=== PATIENT | female | born 1980 | race Caucasian/White ===

== ENCOUNTER → 2017-08-23 07:25 | Outpatient (CLI) | payer BC, SELFPAY ==
--- NOTE | 2017-08-23 16:15 | VAGW_PTH ---
PATIENT: DO SANDERS LOC: [facility]#:[id number] AGE/SX: 44/F ROOM: RE08/23/[address]: Dr. Easton Flores MD : 1980 BED: DIS: SPEC #: [id number] RECD: 08/24/17 08:57 STATUS: DAVID PATRICIA #: [id number] VASQUEZ: 08/23/17 16:[address]: Easton Flores DEPT: SURGICAL PATHOLOGY RECD BY: Chance Nobles ENTERED: 08/24/17 08:57 SP TYPE: VAG WALL OTHR DR: No Primary Care Phys Tissues: Vagina, NOS Procedures: Special Stain Group I Surgery Specimen Level IV AFB Stain (control) GMS Stain (control) HEADER OPERATION: Excise vaginal tissue PRE-OP DIAGNOSIS: N89.8 TISSUE SUBMITTED: Vaginal tissue MICROSCOPIC DIAGNOSIS Vaginal tissue, biopsy: Fragment of fibroconnective tissue with acute and chronic inflammation and granulation tissue reaction. Special stains for acid fast bacilli and fungi are negative for organisms; matched controls are appropriate. EVERETT:dayanara 08/27/17 MICROSCOPIC DESCRIPTION Slides are reviewed. GROSS DESCRIPTION Received is one container labeled with the patient's name and not further designated. The specimen consists of a piece of chairez soft tissue measuring 0.5 x 0.6 x 0.1 cm. The entire specimen is submitted in one cassette. / EVERETT:dayanara 08/24/17 TC:2 CPT: 27079, 53506 x2
== END ==
PROVIDERS: Visit Provider Obstetrics & Gynecology
DX: N89.8 Other specified noninflammatory disorders of vagina (principal)
CPT/HCPCS: 88305; 88312

== ENCOUNTER 2021-08-17 09:16 | Outpatient (CLI) | payer OTHER, SELFPAY ==
--- NOTE | 2021-08-17 09:21 | BI_ITS ---
MAMMOGRAPHY - BILATERAL DIAGNOSTIC REASON FOR EXAM: Female, 41 years old. Occasional breast pain at the intercondylar position of the right breast. 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 Breast implants. PERTINENT HISTORY: Non-contributory. TECHNIQUE: Digital bilateral breast kit (3D mammographic acquisition) in the CC and MLO projections. 2-D mediolateral oblique (MLO) and craniocaudad (CC) views of both breasts were obtained. CAD: Full Field Digital Mammography with Computer Added Detection was performed. COMPARISON: Comparison is made with prior outside examination dated 08/19/2020. FINDINGS: Breast Composition: The breasts are heterogeneously dense, which may obscure small masses. There are no dominant masses or suspicious calcifications. Bilateral breast implants are seen. No other significant abnormalities are identified. BI/DIAG MAMM W/CAD, BILAT IMPRESSION: Status post excisional biopsy of the previously seen nodule in the inferior medial aspect of the left breast. One year follow-up recommended. (A) ASSESSMENT CATEGORY: BIRADS Category 2: Benign. A letter regarding these results will be sent to the patient by the facility within 30 days. Approximately 10% of breast cancers are not detected by mammography. A normal mammogram should not delay biopsy of a clinically suspicious abnormality. Electronically Signed: Kingsley Russo MD at 11:06 EDT ,
--- NOTE | 2021-08-17 09:21 | US_ITS ---
STUDY: ULTRASOUND BREAST - RIGHT REASON FOR EXAM: Female, 41 years old. Pain in the right breast. TECHNIQUE: Axial and longitudinal images of the RIGHT breast were performed with a high resolution ultrasound transducer. # OF IMAGES: 29 COMPARISON: Comparison is made with prior mammogram done earlier today. FINDINGS: RIGHT Breast: The inferior outer quadrant of the right breast was examined by ultrasound. Fibroglandular tissue is present. No sonographic abnormality is seen. US/Breast Limited Unilateral IMPRESSION: No sonographic abnormality is seen. ASSESSMENT CATEGORY: BIRADS Category 2: Benign. A letter regarding these results will be sent to the patient by the facility within 30 days. Electronically Signed: Kingsley Russo MD at 12:30 EDT ,
== END 2021-08-17 23:59 | disposition home or self-care (01) ==
PROVIDERS: Visit Provider Obstetrics & Gynecology
DX: N64.4 Mastodynia (principal); Z98.82 Breast implant status
CPT/HCPCS: 76642; 77062; 77066; G0279

== ENCOUNTER → 2021-11-29 | Outpatient (CLI) | payer OTHER, SELFPAY ==
[2021-11-29 12:26] LABS: Absolute Lymphocyte Count 1.85 X10^3/uL (0.83-4.51); Absolute Neutrophil Count 3.2 X10^3/uL (2.0-7.7); Basophil# 0.06 X10^3/uL; Basophil% 1.1 % (0-1); Eosinophil# 0.14 X10^3/uL; Eosinophils% 2.5 % (0-5); Hematocrit 41.8 % (37-47); Hemoglobin 13.4 g/dL (12.0-15.0); Lymphocyte # 1.85 X10^3/ul (0.83-4.51); Lymphocyte % 32.6 % (19-41); Mean Corp Hgb Conc 32.1 g/dL (32-36); Mean Corpuscular Hgb 29.3 pg (27.0-32.0); Mean Corpuscular Volume 91.5 fL (81-99); Mean Platelet Vol. 10.3 fl (6.2-12.0); Monocyte# 0.42 X10^3/uL; Monocyte% 7.4 % (0-10); NRBC Flagged by Analyzer 0 % (0-5); Neutrophil # 3.19 X10^3/uL (2.7-7.7); Platelet Count 275 K/mm3 (150-450); RBC Distribution Width CV 12.8 % (11.6-14.6); RBC Distribution Width SD 42.3 fl (35.1-43.9); Red Blood Count 4.57 M/mm3 (4.2-5.4); White Blood Count 5.7 K/mm3 (4.4-11.0)
[2021-11-29 12:54] LABS: ALB/GLOB Ratio 1.2 RATIO (0.9-2.4); AST(SGOT) 16 U/L (15-37); Alanine Aminotransfer ALT/SGPT 26 U/L (13-56); Albumin, Serum 3.8 g/dL (3.2-5.0); Alkaline Phosphatase 66 U/L (45-117); Anion Gap 4 (5-15); BUN 12 mg/dL (7-18); BUN/Creat Ratio 14.8 RATIO (10-20); Calcium,Total 8.8 mg/dL (8.5-10.1); Chloride 107 mmol/L (98-107); Cholesterol 181 mg/dL (200); Creatinine, Serum 0.81 mg/dL (0.55-1.02); EST Glomerular Filtration Rate 83 mL/min (>60); Est Glom Filt Rate - Afr Amer 100 mL/min (>60); Globulin 3.2 g/dL (2.2-4.2); Glucose 97 mg/dL (74-106); High Density Lipoprotein 71 mg/dL; Potassium 4.2 mmol/L (3.5-5.1); Sodium Level 139 mmol/L (136-145); Triglycerides 79 mg/dL; Very Low Density Lipoprotein 16 mg/dL (5-40)
[2021-11-29 13:13] LABS: Hemoglobin A1c 5.4 % (3.8-5.6)
== END | disposition home or self-care (01) ==
LOC: BIMLAB 08:48
PROVIDERS: PCP Internal Medicine; Visit Provider Internal Medicine
DX: Z00.00 Encounter for general adult medical examination without abnormal findings (principal)
CPT/HCPCS: 36415; 80053; 80061; 83036; 85025

== ENCOUNTER → 2022-01-16 | Outpatient (CLI) | payer OTHER, SELFPAY ==
--- NOTE | 2022-01-16 08:50 | EKG12_ITS ---
Test Reason : PALPS Blood Pressure : / mmHG Vent. Rate : 091 BPM Atrial Rate : 091 BPM P-R Int : 122 ms QRS Dur : 080 ms QT Int : 346 ms P-R-T Axes : 074 072 047 degrees QTc Int : 425 ms Normal sinus rhythm Normal ECG Confirmed by PRASAD LAU, ARLENE ([id number]), sports editor GIO BEE ([id number]) on 01/17/2022 12:57:21 PM Referred By: PATI Confirmed By:ARLENE PARHAM MD
== END | disposition home or self-care (01) ==
LOC: PSN 08:47
PROVIDERS: PCP Internal Medicine; Visit Provider Physician Assistant
DX: R00.2 Palpitations (principal)
CPT/HCPCS: 93005; 93225; 93226

== ENCOUNTER 2022-02-11 15:11 | Emergency (ER) | payer OTHER, SELFPAY ==
[2022-02-11 15:12] VITALS: BP 143/82; PULSE 112; RESP 16; TEMP 36.3; O2SAT 99; BMI 29.7
[2022-02-11] MEDS: oxyCODONE 5 MG Tablet PO (15:29)
[2022-02-11] MEDS: Cephalexin 250 MG Capsule 500 MG PO (15:29)
--- NOTE | 2022-02-11 15:30 | RAD_ITS ---
EXAM: XR LEFT FOOT COMPLETE, 3 OR MORE VIEWS CLINICAL INDICATION: trauma TECHNIQUE: Frontal, lateral and oblique views of the left foot. This report was created using [employer] report generation technology. COMPARISON: None. FINDINGS: BONES/JOINTS: Acute fractures of the first proximal and distal phalanges noted. No subluxation deformity. SOFT TISSUES: Soft tissue swelling of the forefoot. No radiopaque foreign body. RAD/Foot min 3 Views IMPRESSION: Acute fractures of the first proximal and distal phalanges. Electronically Signed: Teddy Rivera MD at 16:02 EDT ,
--- NOTE | 2022-02-11 15:45 | ED.VIS.LOWEX ---
HPI History of Present Illness Chief Complaint: Lower Extremity Injury Informant: patient Narrative Narrative: Patient presents with left foot pain after a horse stepped on it. She was wearing flip-flops at the time. This happened about an hour ago. Weightbearing makes it worse Motrin made a little better. No other injury. [facility] Medical History Anxiety Gastroenteritis No pertinent past medical history Preventative health custodial Medications fexofenadine 180 mg tablet (Melinda Allergy) 180 mg PO DAILY 08/04/21 [History Last Taken Unknown] multivitamin with minerals (Hair,Skin and Nails tablet) 1 tab PO DAILY 08/04/21 [History Last Taken Unknown] meloxicam 15 mg tablet 15 mg PO DAILY Right knee pain #30 tabs 09/23/21 [Rx Last Taken Unknown] Lactobacillus 25 billion cell-Bifido 25 billion [id number] capsule (Women's Probiotic) cap PO 11/29/21 [History Last Taken Unknown] cephalexin 500 mg capsule 500 mg PO Q6 #40 caps 02/11/22 [Rx Last Taken Unknown] fluconazole 150 mg tablet (Diflucan) 150 mg PO Q3D 2 doses #2 tabs 02/11/22 [Rx Last Taken Unknown] oxycodone-acetaminophen 5 mg-325 mg tablet (Percocet) 1 tab PO Q6H PRN pain 3 days #10 tabs 02/11/22 [Rx Last Taken Unknown] Allergy/AdvReac Type Severity Reaction Status Date / Time No Known Allergies Allergy Verified 02/11/22 15:11 Family History Other Cervical cancer Heart disease Melanoma Mental disorder Myocardial infarction Ovarian cancer Surgical History H/O lumpectomy History of hysterectomy History of wisdom tooth extraction Social History Smoking Status: Former smoker alcohol intake: current alcohol intake frequency: holidays/special occasions only substance use type: does not use ROS ROS ED Constitutional Constitutional ED: Denies chills or fever(s) Gastrointestinal Gastrointestinal: Denies nausea or vomiting Musculoskeletal Musculoskeletal: Reports arthralgias Integumentary Reports other Details: There is a tear of the skin in the lateral aspect of the great toe. This will be cleaned for greater evaluation Neurologic Neurologic: Denies paresthesias or weakness Hematologic/Lymphatic Hematologic/Lymphatic: Denies easy bleeding or easy bruising EXAM Physical Exam Const Vital Signs: 02/11/22 15:12 Temperature 97.3 F L Temperature Source Temporal Pulse Rate 112 H Respiratory Rate 16 Blood Pressure 143/82 H Blood Pressure Mean 102 Pulse Ox 99 Oxygen Delivery Method Room Air Positive well nourished and well developed General Appearance ED: well developed and NAD HEENT atraumatic Resp normal respiratory effort Cardio regular rate and regular rhythm Extremity Extremity Narrative: Patient has notable swelling to the anterior half of the left foot dorsally. There appears to be a small break in the skin at the proximal lateral aspect of the great toe. No active bleeding. I do not see any notable deformity but there is moderate amount of swelling that could obscure this. Distal capillary refill of all toes is intact. Neuro no sensory deficits noted Psych mental status grossly normal Skin No no wounds Skin Narrative: See above MDM MDM MDM Narrative Medical decision making narrative: Three-view x-ray of the foot looked at by me and read by radiology shows fractures of the great toe proximal and distal phalanx. We cleaned the foot irrigated the area. There seems to be a little abrasion of the skin but no real laceration or opening that I can see. This really does not open up in any way. Its in the medial superior aspect of the great toe. I do not think this likely communicates directly with the fracture. We will treat her with antibiotics. But I do not think this needs surgical washout at this time. We did have a long conversation about things to watch for reasons to return and the higher risk of infection. She will follow-up with [place] whom she has seen before. Radiography Diagnostic Testing: Clinical Impression(s) from Imaging Studies Foot X-Ray 02/11/22 15:30 IMPRESSION: Acute fractures of the first proximal and distal phalanges. Electronically Signed: Teddy Rivera MD at 16:02 EDT , Discharge Plan Triage Chief Complaint: Lower Extremity Injury ED Provider: Joby Reed Dx/Rx/DC Orders Clinical Impression: Fracture of left great toe, Abrasion of great toe of left foot Instructions: ED Fracture, Foot Prescriptions: New oxycodone-acetaminophen [Percocet] 5-325 mg tablet 1 tab PO Q6H PRN (Reason: pain) 3 Days Qty: 10 0RF cephalexin [cephalexin] 500 mg capsule 500 mg PO Q6 Qty: 40 0RF fluconazole [Diflucan] 150 mg tablet 150 mg PO Q3D Qty: 2 0RF Rx Instructions: may repeat second dose 72 hrs after first dose if symptoms persist No Action Women's Probiotic 25B cell-25B cell-50 mg capsule PO fexofenadine [Melinda Allergy] 180 mg tablet 180 mg PO DAILY Hair,Skin and Nails Tablet 1 tab PO DAILY meloxicam 15 mg tablet 15 mg PO DAILY Qty: 30 3RF Rx Instructions: Do not take in conjunction with other NSAIDs. Primary Care Provider: Daria Martines Referrals: Eulogio Mello DO [Med Staff - Active Staff] - 2 Days for wound check Daria Martines MD [Primary Care Provider] - Disposition Disposition: Home, Self Care
[2022-02-11] MEDS: Diphth,Pertuss(Acell),Tet Vac 0.5 ML Vial IM (16:07)
[2022-02-11 17:11] VITALS: BP 98/73; PULSE 74; RESP 17; O2SAT 99
== END 2022-02-11 17:19 | disposition home or self-care (01) ==
PROVIDERS: Emergency Provider Emergency Medicine; PCP Internal Medicine; Visit Provider Emergency Medicine
DX: S92.412A Displaced fracture of proximal phalanx of left great toe, initial encounter for closed fracture (principal); S92.422A Displaced fracture of distal phalanx of left great toe, initial encounter for closed fracture; S90.412A Abrasion, left great toe, initial encounter; Z23 Encounter for immunization; W55.89XA Other contact with other mammals, initial encounter; Z87.891 Personal history of nicotine dependence
CPT/HCPCS: 73630; 90715; 99283

== ENCOUNTER → 2023-01-26 | Outpatient (CLI) | payer OTHER, SELFPAY ==
--- NOTE | 2023-01-26 10:02 | BI_ITS ---
MAMMOGRAPHY - BILATERAL SCREENING REASON FOR EXAM: Female, 42 years old. Routine annual screening examination. PERTINENT HISTORY: Aunt with breast cancer. History of prior resection of a right phyllodes tumor. Bilateral breast implants. TECHNIQUE: Digital bilateral breast rj (3D mammographic acquisition) in the CC and MLO projections. 2-D mediolateral oblique (MLO) and craniocaudad (CC) views of both breasts were obtained. CAD: Full Field Digital Mammography with Computer Added Detection was performed. COMPARISON: Comparison is made with prior study dated August 17, 2021. FINDINGS: Breast Composition: The breasts are heterogeneously dense, which may obscure small masses. There are no dominant masses or suspicious calcifications. Stable appearance of the bilateral breast implants. Stable small benign-appearing bilateral axillary lymph nodes. No other significant abnormalities are identified. There has been no significant change since the prior study. BI/SCRN MAMM (CAD)W/RJ BILAT IMPRESSION: Stable bilateral screening mammogram. Yearly follow-up mammogram recommended. (A) ASSESSMENT CATEGORY: BIRADS Category 2: Benign. A letter regarding these results will be sent to the patient by the facility within 30 days. Approximately 10% of breast cancers are not detected by mammography. A normal mammogram should not delay biopsy of a clinically suspicious abnormality. [id number] Electronically Signed: Kingsley Russo MD at 11:25 EDT ,
== END | disposition home or self-care (01) ==
PROVIDERS: PCP Internal Medicine; Visit Provider Nurse Practitioner Family
DX: Z12.31 Encounter for screening mammogram for malignant neoplasm of breast (principal)
CPT/HCPCS: 77063; 77067

== ENCOUNTER → 2023-02-12 | Outpatient (CLI) | payer OTHER, SELFPAY ==
--- NOTE | 2023-02-12 06:24 | MRI_ITS ---
EXAM: MR LEFT LOWER EXTREMITY WITHOUT INTRAVENOUS CONTRAST, KNEE CLINICAL INDICATION: Pain TECHNIQUE: Multiplanar and multisequence MR images of the left knee without intravenous contrast. COMPARISON: No relevant prior studies available. FINDINGS: BONES/JOINTS: Unremarkable. No fracture. No abnormal bone marrow signal. No synovial hypertrophy. No intra-articular body. No significant arthritic changes. EXTENSOR MECHANISM: Unremarkable. MEDIAL MENISCUS: Unremarkable. LATERAL MENISCUS: Unremarkable. MEDIAL CAPSULE/SUPPORTING STRUCTURES: Unremarkable. Intact. LATERAL CAPSULE/SUPPORTING STRUCTURES: Unremarkable. Lateral collateral ligamentous complex, inclusive of the popliteal tendon, are intact. ANTERIOR CRUCIATE LIGAMENT: Unremarkable. Intact. POSTERIOR CRUCIATE LIGAMENT: Unremarkable. Intact. MUSCLES: Unremarkable. CARTILAGE: Unremarkable. No focal chondral defects. FLUID: Unremarkable. No significant joint effusion. OTHER SOFT TISSUES: Suprapatellar fat pad edema. No popliteal cyst. MRI/Lower Ext Joint Only (Routine) IMPRESSION: 1. Suprapatellar fat pad impingement. 2. No other significant internal derangement of the knee. Electronically Signed: Madi Garner MD at 21:14 EDT ,
[2023-02-12 07:26] LABS: Absolute Lymphocyte Count 1.93 X10^3/uL (0.83-4.51); Absolute Neutrophil Count 3.2 X10^3/uL (2.0-7.7); Basophil# 0.05 X10^3/uL; Basophil% 0.9 % (0-1); Eosinophil# 0.14 X10^3/uL; Eosinophils% 2.4 % (0-5); Hematocrit 39.9 % (37-47); Hemoglobin 13.2 g/dL (12.0-15.0); Lymphocyte # 1.93 X10^3/ul (0.83-4.51); Lymphocyte % 33.5 % (19-41); Mean Corp Hgb Conc 33.1 g/dL (32-36); Mean Corpuscular Hgb 29.7 pg (27.0-32.0); Mean Corpuscular Volume 89.9 fL (81-99); Mean Platelet Vol. 9.1 fl (6.2-12.0); Monocyte# 0.46 X10^3/uL; NRBC Flagged by Analyzer 0 % (0-5); Neutrophil # 3.17 X10^3/uL (2.7-7.7); Platelet Count 317 K/mm3 (150-450); RBC Distribution Width SD 39.4 fl (35.1-43.9); Red Blood Count 4.44 M/mm3 (4.2-5.4); White Blood Count 5.8 K/mm3 (4.4-11.0)
[2023-02-12 07:50] LABS: ALB/GLOB Ratio 1.2 RATIO (0.9-2.4); AST(SGOT) 11 U/L (15-37); Alanine Aminotransfer ALT/SGPT 19 U/L (13-56); Albumin, Serum 4.1 g/dL (3.2-5.0); Alkaline Phosphatase 69 U/L (45-117); Anion Gap 1 (5-15); BUN 15 mg/dL (7-18); BUN/Creat Ratio 18.9 RATIO (10-20); Calcium,Total 8.8 mg/dL (8.5-10.1); Chloride 109 mmol/L (98-107); Cholesterol 191 mg/dL (200); Creatinine, Serum 0.79 mg/dL (0.55-1.02); EST Glomerular Filtration Rate 84 mL/min (>60); Est Glom Filt Rate - Afr Amer 102 mL/min (>60); Globulin 3.3 g/dL (2.2-4.2); Glucose 83 mg/dL (74-106); High Density Lipoprotein 64 mg/dL; Potassium 3.7 mmol/L (3.5-5.1); Protein, Total 7.4 g/dL (6.4-8.2); Sodium Level 140 mmol/L (136-145); Thyroid Stim Hormone (TSH) 0.88 uIU/mL (0.358-3.74); Triglycerides 62 mg/dL; Very Low Density Lipoprotein 12 mg/dL (5-40)
[2023-02-12 08:26] LABS: Vitamin B12 662 pg/mL (211-911); Vitamin D,25 Hydroxy 37.1 ng/mL
== END | disposition home or self-care (01) ==
LOC: MRI 06:22
PROVIDERS: PCP Nurse Practitioner Family
DX: E88.9 Metabolic disorder, unspecified (principal); F41.9 Anxiety disorder, unspecified; E56.9 Vitamin deficiency, unspecified
CPT/HCPCS: 36415; 73721; 80053; 80061; 82306; 82607; 84443; 85025

== ENCOUNTER 2023-03-18 10:55 | Emergency (ER) | payer OTHER, SELFPAY ==
[2023-03-18 10:56] VITALS: BP 131/89; PULSE 94; RESP 16; TEMP 36.1; O2SAT 99; BMI 27.3
--- NOTE | 2023-03-18 11:05 | RAD_ITS ---
STUDY: X-RAY - LEFT FOOT CLINICAL: Female, 42 years old. injury TECHNIQUE: 3 view(s) of the foot. COMPARISON: 02/11/2022 FINDINGS: Normal talus, calcaneus, and tarsal bones. 5 mm type I accessory navicular bone. Tiny plantar and posterior calcaneal enthesophytes. Normal visualized subtalar, talonavicular, calcaneocuboid, tarsal and tarsometatarsal articulations. Normal metatarsi. Normal metatarsophalangeal joint of the great toe. Normal tibial and fibular sesamoid bones. Normal interphalangeal joint of the great toe. Normal phalanges of the great toe. Normal second through fifth metatarsophalangeal joints. Normal interphalangeal joints and phalanges of the lesser toes. The soft tissue structures are unremarkable. RAD/Foot min 3 Views IMPRESSION: Normal x-ray examination of the foot. Electronically Signed: Chance Norris MD at 11:54 EDT ,
--- NOTE | 2023-03-18 11:06 | EDS_ITS ---
HPI History of Present Illness Chief Complaint: Lower Extremity Injury Informant: patient Onset/Context/Timing Onset: Today Current Severity: Moderate Maximum Severity: Moderate Narrative Narrative: Patient presents with a new left foot injury. She states that they are moving furniture to get ready for new carpet. Her daughter picked up a wooden for [employer] with a screw on the bottom that goes onto a bed frame and dropped it onto her foot. The screw portion did puncture into the skin in the webspace between the first and second toes. She is increasing pain to this area. She reports that her tetanus is up-to-date. [facility] Medical History (Updated 03/18/23 @ 12:[address] Liliam Brian MD) Anxiety Obesity (BMI 30.0-34.9) Home Medications Lactobacillus 25 billion cell-Bifido 25 billion [id number] capsule (Women's Probiotic) cap PO 11/29/21 [History Last Taken Unknown] biotin 1 mg capsule 1 mg PO DAILY 07/20/22 [History Last Taken Unknown] fexofenadine 180 mg tablet (Melinda Allergy) 180 mg PO DAILY PRN 07/20/22 [Hi story Last Taken Unknown] fluoxetine 20 mg capsule See Rx Instructions .Route .COMPLEX #30 CAPSULES 01/30/23 [Rx Last Taken Unknown] meloxicam 15 mg tablet 15 mg PO DAILY PRN Right knee pain #30 tabs 02/13/23 [Rx Last Taken Unknown] tirzepatide 10 mg/0.5 mL subcutaneous pen injector (Mounjaro) 5 mg subcut 02/23/23 [History Last Taken Unknown] doxycycline monohydrate 100 mg capsule 100 mg PO BID #14 CAPSULES 03/18/23 [Rx Last Taken Unknown] fluconazole 150 mg tablet 150 mg PO DAILY #1 TAB 03/18/23 [Rx Last Taken Unknown] Allergy/AdvReac Type Severity Reaction Status Date / Time No Known Allergies Allergy Verified 03/18/23 10:56 Family History Other Cervical cancer Heart disease Melanoma Mental disorder Myocardial infarction Ovarian cancer Surgical History H/O lumpectomy History of hysterectomy History of wisdom tooth extraction Social History Smoking Status: Former smoker alcohol intake: current alcohol intake frequency: holidays/special occasions only substance use type: does not use ROS ROS ED Constitutional Constitutional ED: Denies chills or fever(s) Eyes Eyes: Denies discharge from eye(s) ENT ENT ED: Denies discharge from eye(s), rhinorrhea or sore throat Cardiovascular Cardiovascular: Denies chest pain Respiratory/Chest Respiratory/Chest: Denies cough Gastrointestinal Gastrointestinal: Denies abdominal pain, nausea or vomiting Musculoskeletal Musculoskeletal: Reports extremity pain; Denies back pain Integumentary Reports other Details: Puncture wound ; Denies Abrasions or rash Neurologic Neurologic: Denies headache(s) or weakness Psychiatric Psychiatric: Denies anxiety or depression Allergic/Immunologic Allergic/Immunologic ED: Denies lip swelling or urticaria EXAM Physical Exam Const Vital Signs: 03/18/23 10:56 Temperature 97.0 F L Temperature Source Temporal Pulse Rate 94 Respiratory Rate 16 Blood Pressure 131/89 H Blood Pressure Mean 103 Pulse Ox 99 Oxygen Delivery Method Room Air Positive well nourished and well developed General Appearance ED: well developed HEENT Reports moist mucous membranes Chest Wall inspection of chest normal and palpation of chest normal Resp normal respiratory effort and clear to auscultation bilaterally Cardio regular rate, regular rhythm and no murmurs GI non-tender Extremity Extremity Narrative: Puncture wound measuring approximately 6 millimeters in diameter to the webspace between the left first and second toes. No active bleeding at this time. Mild tenderness. No bony tenderness noted with palpation. Neuro oriented x3, moves all extremities and no sensory deficits noted Motor Exam: strength 5/5 throughout Psych mental status grossly normal MDM MDM MDM Narrative Medical decision making narrative: Patient given naproxen for pain. Left foot x-rays obtained to evaluate for fracture or foreign body. Radiography Diagnostic Testing: Clinical Impression(s) from Imaging Studies Foot X-Ray 03/18/23 11:05 IMPRESSION: Normal x-ray examination of the foot. Electronically Signed: Chance Norris MD at 11:54 EDT , Treatment and Re-Evaluation Narrative: Left foot x-rays per my interpretation reveal no evidence of bony injury and no evidence of radiopaque foreign body. Radiology interpretation is reviewed and agrees. Patient was barefoot at the time of her injury and did not puncture to the plantar surface of her foot. I will cover her with doxycycline I do not think she needs Pseudomonas coverage. I do not feel that wound needs to be opened or packed. Foot was soaked for 20 minutes then cleansed and antibiotic ointment placed. Return instructions provided. Discharge Plan Triage Chief Complaint: Lower Extremity Injury ED Provider: Liliam Brian Dx/Rx/DC Orders Clinical Impression: Puncture wound of foot, left Instructions: ED Puncture Wound (Foot) Prescriptions: New doxycycline monohydrate 100 mg capsule 100 mg PO BID Qty: 14 0RF fluconazole 150 mg tablet 150 mg PO DAILY Qty: 1 0RF Rx Instructions: take at completion of antibiotic course No Action Women's Probiotic 25B cell-25B cell-50 mg capsule PO fexofenadine [Melinda Allergy] 180 mg tablet 180 mg PO DAILY PRN biotin 1 mg capsule 1 mg PO DAILY Mounjaro 10 mg/0.5 mL pen injector 5 mg subcut Patient Comments: inject 10 mg weekly fluoxetine 20 mg capsule See Rx Instructions .ROUTE .COMPLEX Qty: 30 0RF Dose Instruction: TAKE 1 CAPSULE BY MOUTH DAILY Rx Instructions: TAKE 1 CAPSULE BY MOUTH DAILY meloxicam 15 mg tablet 15 mg PO DAILY PRN (Reason: Right knee pain) Qty: 30 0RF Rx Instructions: Do not take in conjunction with other NSAIDs. Tylenol is okay. Primary Care Provider: Yonathan Harper Referrals: Yonathan Harper, [employer] [Primary Care Provider] - 1-2 Weeks Disposition Disposition: Home, Self Care Discharge Date/Time: 03/18/23 12:47
[2023-03-18] MEDS: Naproxen 500 MG Tablet PO (11:16)
[2023-03-18] MEDS: Doxycycline 100 MG CAPSULE PO (12:16)
== END 2023-03-18 12:47 | disposition home or self-care (01) ==
PROVIDERS: Emergency Provider Emergency Medicine; PCP Nurse Practitioner Family; Visit Provider Emergency Medicine
DX: S91.332A Puncture wound without foreign body, left foot, initial encounter (principal); W20.8XXA Other cause of strike by thrown, projected or falling object, initial encounter; Z79.899 Other long term (current) drug therapy; Z87.891 Personal history of nicotine dependence
CPT/HCPCS: 73630; 99283

== ENCOUNTER → 2023-03-19 | Outpatient (CLI) | payer OTHER, SELFPAY | END | disposition home or self-care (01) | PROVIDERS: PCP Nurse Practitioner Family; Referring Provider Surgery; Visit Provider Surgery | DX: S91.332A Puncture wound without foreign body, left foot, initial encounter (principal); X58.XXXA Exposure to other specified factors, initial encounter | CPT/HCPCS: 87070; 87075; 87077; 87186; 87205 ==

== ENCOUNTER → 2023-09-26 | Outpatient (CLI) | payer OTHER, SELFPAY ==
[2023-09-26 08:29] LABS: Estradiol 72.9 pg/mL; Follicle Stimulating Hormone 4.8 mIU/mL; Progesterone Level 8.61 ng/mL (See Comment)
[2023-10-01 10:07] LABS: Sex Hormone-binding Globulin 93.1 nmol/L (24.6-122.0); Testosterone, % Free 1.53 % (0.50-2.80); Testosterone, Free 0.05 ng/dL (0.10-0.85); Testosterone, Total 3 ng/dL (4-50)
== END | disposition home or self-care (01) ==
LOC: PAVLAB 07:43
PROVIDERS: PCP Nurse Practitioner Family; Referring Provider Registered Nurse; Visit Provider Registered Nurse
DX: R53.83 Other fatigue (principal); R68.82 Decreased libido; R63.5 Abnormal weight gain
CPT/HCPCS: 36415; 82670; 83001; 83002; 83036; 84144; 84270; 84402; 84403

== ENCOUNTER → 2023-11-08 | Outpatient (CLI) | payer OTHER, SELFPAY ==
[2023-11-08 14:54] LABS: Bacteria 0 SEEN /hpf (None Seen); Mucous, Urine 0 SEEN /hpf (<or=2+); Red Blood Cells-Urine 0 SEEN /hpf (0-5)
[2023-11-08 15:00] LABS: Color, Urine Yellow (Yellow); Glucose, Dipstick Normal (Normal); Ketone-Dipstick Negative (Negative); Leukocyte Esterase-Dipstick 25 /ul (Negative); Nitrite-Dipstick Negative (Negative); Occult Blood-Urine Negative /ul (Negative); Protein-Dipstick Negative (Negative); Specific Gravity, Urine 1.005 (1.002-1.030); Urine Bilirubin Dipstick Negative (Negative); Urine Clarity Clear (Clear); Urine Urobilinogen Normal (Normal)
[2023-11-08 15:11] LABS: Squamous Epithelial Cells - UA 0-5 SEEN /hpf (5-10); White Blood Cells 0-5 SEEN /hpf (0-5)
== END | disposition home or self-care (01) ==
LOC: LABSPEC 14:41
PROVIDERS: PCP Nurse Practitioner Family; Referring Provider Physician Assistant Surgical; Visit Provider Physician Assistant Surgical
DX: N39.0 Urinary tract infection, site not specified (principal)
CPT/HCPCS: 81001; 87077; 87086; 87088; 87186

== ENCOUNTER 2023-12-11 16:06 | Emergency (ER) | payer OTHER, SELFPAY ==
[2023-12-11 16:06] VITALS: BP 121/86; PULSE 104; RESP 16; TEMP 36.6; O2SAT 99; BMI 25.7
== END 2023-12-11 16:38 | disposition left against medical advice (07) ==
LOC: ED 16:49
PROVIDERS: PCP Nurse Practitioner Family
DX: R07.9 Chest pain, unspecified (principal); Z53.21 Procedure and treatment not carried out due to patient leaving prior to being seen by health care provider

== ENCOUNTER → 2023-12-27 | Outpatient (CLI) | payer OTHER, SELFPAY ==
[2023-12-27 09:35] LABS: Hematocrit 40.4 % (37-47); Hemoglobin 13.2 g/dL (12.0-15.0); Mean Corp Hgb Conc 32.7 g/dL (32-36); Mean Corpuscular Hgb 29.1 pg (27.0-32.0); Platelet Count 387 K/mm3 (150-450); RBC Distribution Width CV 12.3 % (11.6-14.6); Red Blood Count 4.54 M/mm3 (4.2-5.4); White Blood Count 6.7 K/mm3 (4.4-11.0)
[2023-12-27 10:02] LABS: ALB/GLOB Ratio 1.1 RATIO (0.9-2.4); AST(SGOT) 14 U/L (15-37); Alanine Aminotransfer ALT/SGPT 14 U/L (13-56); Albumin, Serum 3.9 g/dL (3.2-5.0); Alkaline Phosphatase 79 U/L (45-117); Anion Gap 5 (5-15); BUN 13 mg/dL (7-18); BUN/Creat Ratio 17.1 RATIO (10-20); Calcium,Total 8.8 mg/dL (8.5-10.1); Chloride 103 mmol/L (98-107); Cholesterol 159 mg/dL (200); Creatinine, Serum 0.76 mg/dL (0.55-1.02); EST Glomerular Filtration Rate 88 mL/min (>60); Est Glom Filt Rate - Afr Amer 107 mL/min (>60); Globulin 3.6 g/dL (2.2-4.2); Glucose 89 mg/dL (74-106); High Density Lipoprotein 75 mg/dL; Potassium 3.9 mmol/L (3.5-5.1); Protein, Total 7.5 g/dL (6.4-8.2); Sodium Level 135 mmol/L (136-145); Thyroid Stim Hormone (TSH) 0.52 uIU/mL (0.358-3.74); Triglycerides 50 mg/dL; Very Low Density Lipoprotein 10 mg/dL (5-40)
== END | disposition home or self-care (01) ==
LOC: PAVLAB 09:17
PROVIDERS: PCP Nurse Practitioner Family; Referring Provider Nurse Practitioner Family; Visit Provider Nurse Practitioner Family
DX: Z13.0 Encounter for screening for diseases of the blood and blood-forming organs and certain disorders involving the immune mechanism (principal); Z13.29 Encounter for screening for other suspected endocrine disorder; Z13.228 Encounter for screening for other metabolic disorders; Z13.1 Encounter for screening for diabetes mellitus; Z13.220 Encounter for screening for lipoid disorders; Z86.32 Personal history of gestational diabetes; Z86.39 Personal history of other endocrine, nutritional and metabolic disease
CPT/HCPCS: 36415; 80053; 80061; 83036; 84443; 85027

== ENCOUNTER → 2024-03-12 | Outpatient (CLI) | payer OTHER, SELFPAY ==
--- NOTE | 2024-03-12 15:02 | NEURO_ITS ---
NCS and/or EMG Patient Report Ordering Doctor: Eulogio Mello DATE OF SERVICE: 03/12/24 Maxine presents for electrodiagnostic testing of the upper limbs. She reports numbness and tingling in digits 1 through 3 of both hands, worse on the left side. Electrodiagnostic findings: Left median motor nerve demonstrates prolonged latency with normal amplitude and conduction velocity. Right median motor nerve demonstrates prolonged latency with normal amplitude and conduction velocity. Ulnar motor responses within normal limits, including conduction across the elbow. Normal median ulnar F?waves. Prolonged median sensory latency at the wrist bilaterally. Absent median palmar response bilaterally. Needle EMG t esting was performed upper limbs. All muscles tested showed no evidence of denervation with normal motor unit action potentials. Electrodiagnostic impression: This is an abnormal study in the upper limbs 1. Electrodiagnostic findings suggestive of bilateral median mononeuropathy. This is consistent with a mild to moderate bilateral carpal tunnel syndrome. 2. No electrodiagnostic evidence is noted for cervical radiculopathy. Multi Select Codes Neurology Neurology Interp Codes: 10917-39 Musc test done w/n test comp (interp) (2) and 18689-73 Nr cndj test 13/> studies (interp)
== END | disposition home or self-care (01) ==
LOC: PSN 13:40
PROVIDERS: PCP Nurse Practitioner Family; Referring Provider Orthopaedic Surgery; Visit Provider Orthopaedic Surgery
DX: G56.03 Carpal tunnel syndrome, bilateral upper limbs (principal)
CPT/HCPCS: 95886; 95913

== ENCOUNTER 2024-06-10 05:57 | Day surgery (SDC) | payer OTHER, SELFPAY ==
--- NOTE | 2024-05-20 14:47 | PAT.ANE_ITS ---
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 When Was Last Pacemaker Check QUESTION #4 FULL TEXT: You/Your Family Experience fever (hyperthermia) with Anesthesia Last Oral Intake Last Oral intake: Last Oral Intake NPO since Meds taken in AM with sips of water? Meds patient instructed to take am of surgery PONV PONV - law firm consultant: PONV - law firm consultant Female No 05/20/24 10:34 HX of Motion Sickness No 05/20/24 10:34 HX of N/V After Surgery No 05/20/24 10:34 Non-Smoker No 05/20/24 10:34 Duration of Surgery greater No 05/20/24 10:34 than 60 minutes Number of Risk Factors PONV Score Height & Weight Height & Weight: Anesthesia: Height & Weight Height 5 ft 7 in 12/12/23 06:35 Respiratory Assessment Respiratory Assessment - law firm consultant: Respiratory Tract Infection Hx - law firm consultant Hx Respiratory Tract Infection No 05/20/24 10:34 STOP Sleep Apnea STOP Sleep Apnea - law firm consultant: STOP Sleep Apnea - law firm consultant Hx Hypertension No 05/20/24 10:34 Hx Sleep Apnea No 05/20/24 10:34 CPAP BIPAP Do you snore loudly (louder No 05/20/24 10:34 than talking or can be heard Do you often feel tired/ No 05/20/24 10:34 fatigued/ sleepy during daytime? Has anyone observed you stop No 05/20/24 10:34 breathing during sleep? STOP Results Negative 05/20/24 10:34 QUESTION #5 FULL TEXT : Do you snore loudly (louder than talking or can be heard through closed doors)? 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 Specify any problems Hx of Preganancy in last 3 No 05/20/24 10:34 Months Nurse Filling Out Transfusion MGRIKAIITH 05/20/24 10:34 & Questions: Date: 05/20/24 05/20/24 10:34 Time: 10:37 05/20/24 10:34 Patient unable to answer at this time (ie. confused, unrespo /Reproduction History /Reproductive History - law firm consultant: /Reproductive Hx- law firm consultant Hx Now No 05/20/24 10:34 Gestational Age (in weeks): EDC: Hx Hx Para Hx Section SAB No 05/20/24 10:34 [facility] Medical History (Updated 05/20/24 @ 10:42 by Cindi Martin) Wears glasses Smoker Accident in home Puncture wound of foot, left Obesity (BMI 30.0-34.9) Anxiety Home Medications ?Medication ?Instructions ?Recorded ?Last Taken ?Type fexofenadine 180 mg tablet 180 mg PO DAILY PRN allergic 07/20/22 Unknown History (Melinda Allergy) symptoms fluoxetine 20 mg capsule See Rx Instructions .Route 01/30/23 Unknown Rx .COMPLEX #30 CAPSULES amoxicillin 500 mg tablet 500 mg PO TID #30 tabs 04/01/24 Unknown Rx collagen SUPPELEMENT 1 dose PO DAILY 05/20/24 Unknown History metformin 500 mg tablet,extended 500 mg PO BID 05/20/24 Unknown History release 24 hr phentermine 37.5 mg tablet 37.5 mg PO DAILY 05/20/24 Unknown History trazodone 50 mg tablet 50 mg PO QHS 05/20/24 Unknown History Allergy/AdvReac Type Severity Reaction Status Date / Time amoxicillin Allergy Rash Verified 05/20/24 10:28 Family History Other Cervical cancer Heart disease Melanoma Mental disorder Myocardial infarction Ovarian cancer Surgical History (Updated 05/20/24 @ 10:34 by Cindi Martin) History of breast augmentation History of wisdom tooth extraction History of hysterectomy H/O lumpectomy Social History Smoking Status: Current every day smoker tobacco type: e-cigarettes alcohol intake: current alcohol intake frequency: holidays/special occasions only substance use type: does not use Audit: Pertinent Findings Pertinent Findings EKG Perinent findings: January 16, 2022. Normal sinus rhythm. Recommendation Anesthesia Recommendation Anesthesia recommendation: OPTIMIZED for anesthesia
[2024-06-03 06:37] VITALS: BP 105/79; PULSE 77; RESP 16; TEMP 36.7; O2SAT 98; BMI 25.0
--- NOTE | 2024-06-03 06:56 | PCM.PRE.AN2 ---
ASA Classification* ASA Classification ASA Classification: 2 Assessment & Plan Anesthesia* Anesthesia Assessment Anesthesia Assessment: Discussed sedation and/or anesthesia options, risks, benefits, and alternatives with patient/parents/legal guardian/POA. Questions invited. The patient/parents/legal guardian/POA seems to understand and agrees to proceed with anesthesia plan. Reviewed the physical assessment, medical history, allergy history and patient home medications list prior to surgery/procedure/anesthetic and documented any changes. Performed airway and anesthesia risk assessments. Procedural Plan Procedural Plan:: NOT optimized for anesthesia (Patient took a compounded form of tirzepatide on Sunday. This is a GLP-1 agonist. Discussed with Dr. Mello. Will cancel for today.) Anesthesia Type Anesthesia Type: MAC Anesthesia Focused Assessment* Temperature: 98.1 F Pulse Rate: 77 Blood Pressure: 105/79 Respiratory Rate: 16 Pulse Ox: 98 Oxygen Delivery Method: Room Air Airway Assessment Mouth opens: >3 cm Mallampati Score: I Teeth Condition: Caps/Crowns (Left lower crown. It is tight.) Neck Range of motion (ROM): Full ROM Focused Labs Anesthesia Preop lab: CBC WBC 6.7 K/mm3 (4.4-11.0) 12/27/23 09:20 RBC 4.54 M/mm3 (4.2-5.4) 12/27/23 09:20 Hgb 13.2 g/dL (12.0-15.0) 12/27/23 09:20 Hct 40.4 % (37-47) 12/27/23 09:20 Plt Count 387 K/mm3 (150-450) 12/27/23 09:20 CHEMISTRY Potassium 3.9 mmol/L (3.5-5.1) 12/27/23 09:20 Sodium 135 mmol/L (136-145) L 12/27/23 09:20 BUN 13 mg/dL (7-18) 12/27/23 09:20 Creatinine 0.76 mg/dL (0.55-1.02) 12/27/23 09:20 Glucose 89 mg/dL (74-106) 12/27/23 09:20 TSH 0.52 uIU/mL (0.358-3.74) 12/27/23 09:20 COAG PT 11.8 SECONDS (11.7-14.9) 05/07/17 15:43 Pre-Assessment Diagnosis/Proposed Procedure Planned Operative Procedure(s): RT open Carpal Tunnel Release, LT carpal tunnel injection Anesthesia History 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 When Was Last Pacemaker Check QUESTION #4 FULL TEXT: You/Your Family Experience fever (hyperthermia) with Anesthesia Last Oral Intake Last Oral intake: Last Oral Intake NPO since 00:00 06/03/24 06:37 Meds taken in AM with sips of No 06/03/24 06:37 water? Meds patient instructed to take am of surgery PONV PONV - student financial aid manager: PONV - student financial aid manager Female No 05/20/24 10:34 HX of Motion Sickness No 05/20/24 10:34 HX of N/V After Surgery No 05/20/24 10:34 Non-Smoker No 05/20/24 10:34 Duration of Surgery greater No 05/20/24 10:34 than 60 minutes Number of Risk Factors PONV Score Height & Weight Height & Weight: Anesthesia: Height & Weight Height 5 ft 7 in 06/03/24 06:37 Weight: 72.3 kg 06/03/24 06:37 Body Mass Index (BMI) 25.0 06/03/24 06:37 Respiratory Assessment Respiratory Assessment - student financial aid manager: Respiratory Tract Infection Hx - student financial aid manager Hx Respiratory Tract Infection No 05/20/24 10:34 STOP Sleep Apnea STOP Sleep Apnea - student financial aid manager: STOP Sleep Apnea - student financial aid manager Hx Hypertension No 05/20/24 10:34 Hx Sleep Apnea No 05/20/24 10:34 CPAP BIPAP Do you snore loudly (louder No 05/20/24 10:34 than talking or can be heard Do you often feel tired/ No 05/20/24 10:34 fatigued/ sleepy during daytime? Has anyone observed you stop No 05/20/24 10:34 breathing during sleep? STOP Results Negative 05/20/24 10:34 QUESTION #5 FULL TEXT : Do you snore loudly (louder than talking or can be heard through closed doors)? Tobacco Use History Tobacco Use History - student financial aid manager: Tobacco Use History - student financial aid manager Tobacco Use Smoking Status Current every day smoker 05/20/24 10:34 Hx Tobacco Use Yes 05/20/24 10:34 Years Smoking Packs Smoked per Day Smoking Cessation Date was Yes - quit smoking within 15 05/20/24 10:34 within the last 15 years years Hx Smoking Cessation Date 05/28/19 05/20/24 10:34 Hx Smoking Cessation Counseling Any additional information?: Yes Smoking Status: Current every day smoker (Patient did not smoke today.) Hematologic Medial History Hematologic Hx - student financial aid manager: 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 Specify any problems Hx of Preganancy in last 3 No 05/20/24 10:34 Months Nurse Filling Out Transfusion MGRIFFITH 05/20/24 10:34 & Questions: Date: 05/20/24 05/20/24 10:34 Time: 10:37 05/20/24 10:34 Patient unable to answer at this time (ie. confused, unrespo /Reproduction History /Reproductive History - student financial aid manager: /Reproductive Hx- student financial aid manager Hx Now No 05/20/24 10:34 Gestational Age (in weeks): EDC: Hx Hx Para Hx Section SAB No 05/20/24 10:34 Active Medications Active Medications: Current Medications Generic Name Dose Route Start Last Admin Trade Name Freq PRN Reason Stop Dose Admin Cefazolin Sodium 2 gm/ N/A 20 mls @ 400 mls/hr 06/03/24 07:30 IV 06/03/24 07:32 X1 [facility] Medical History Wears glasses Smoker Accident in home Puncture wound of foot, left Obesity (BMI 30.0-34.9) Anxiety Home Medications ?Medication ?Instructions ?Recorded ?Last Taken ?Type fexofenadine 180 mg tablet 180 mg PO DAILY PRN allergic 07/20/22 Unknown History (Melinda Allergy) symptoms fluoxetine 20 mg capsule See Rx Instructions .Route 01/30/23 06/02/24 Rx .COMPLEX #30 CAPSULES amoxicillin 500 mg tablet 500 mg PO TID #30 tabs 04/01/24 Unknown Rx collagen SUPPELEMENT 1 dose PO DAILY 05/20/24 06/02/24 History metformin 500 mg tablet,extended 500 mg PO BID 05/20/24 06/02/24 History release 24 hr phentermine 37.5 mg tablet 37.5 mg PO DAILY 05/20/24 06/02/24 History trazodone 50 mg tablet 50 mg PO QHS 05/20/24 06/02/24 History Allergy/AdvReac Type Severity Reaction Status Date / Time amoxicillin Allergy Rash Verified 05/20/24 10:28 Family History Other Cervical cancer Heart disease Melanoma Mental disorder Myocardial infarction Ovarian cancer Surgical History History of breast augmentation History of wisdom tooth extraction History of hysterectomy H/O lumpectomy Social History Smoking Status: Current every day smoker (Patient did not smoke today.) tobacco type: e-cigarettes alcohol intake: current alcohol intake frequency: holidays/special occasions only substance use type: does not use Review of Systems (Anesthesia) ROS Narrative System reviewed and no additional complaints, except as documented.
[2024-06-03 07:02] VITALS: BP 105/79; PULSE 77; RESP 16; TEMP 36.7; O2SAT 98
[2024-06-10] VITALS (9 sets, daily range): BP systolic 101–126; BP diastolic 50–74; PULSE 69–94; RESP 14–16; TEMP 36.2–36.8; O2SAT 99–100; BMI 25.0
--- NOTE | 2024-06-10 06:35 | PRE.ANES_ITS ---
ASA Classification* ASA Classification ASA Classification: 2 Assessment & Plan Anesthesia* Anesthesia Assessment Anesthesia Assessment: Discussed sedation and/or anesthesia options, risks, benefits, and alternatives with patient/parents/legal guardian/POA. Questions invited. The patient/parents/legal guardian/POA seems to understand and agrees to proceed with anesthesia plan. Reviewed the physical assessment, medical history, allergy history and patient home medications list prior to surgery/procedure/anesthetic and documented any changes. Performed airway and anesthesia risk assessments. Anesthesia Type Anesthesia Type: MAC Anesthesia Focused Assessment* Temperature: 98.0 F Pulse Rate: 88 Blood Pressure: 126/74 Respiratory Rate: 16 Pulse Ox: 100 Oxygen Delivery Method: Room Air Airway Assessment Mouth opens: >3 cm Mallampati Score: I Teeth Condition: Caps/Crowns (Patient has 1 crown on left lower molar. It is tight.) Neck Range of motion (ROM): Full ROM Focused Labs Anesthesia Preop lab: CBC WBC 6.7 K/mm3 (4.4-11.0) 12/27/23 09:20 RBC 4.54 M/mm3 (4.2-5.4) 12/27/23 09:20 Hgb 13.2 g/dL (12.0-15.0) 12/27/23 09:20 Hct 40.4 % (37-47) 12/27/23 09:20 Plt Count 387 K/mm3 (150-450) 12/27/23 09:20 CHEMISTRY Potassium 3.9 mmol/L (3.5-5.1) 12/27/23 09:20 Sodium 135 mmol/L (136-145) L 12/27/23 09:20 BUN 13 mg/dL (7-18) 12/27/23 09:20 Creatinine 0.76 mg/dL (0.55-1.02) 12/27/23 09:20 Glucose 89 mg/dL (74-106) 12/27/23 09:20 TSH 0.52 uIU/mL (0.358-3.74) 12/27/23 09:20 COAG PT 11.8 SECONDS (11.7-14.9) 05/07/17 15:43 Pre-Assessment Diagnosis/Proposed Procedure Planned Operative Procedure(s): RT open Carpal Tunnel Release, LT carpal tunnel injection Anesthesia History 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 When Was Last Pacemaker Check QUESTION #4 FULL TEXT: You/Your Family Experience fever (hyperthermia) with Anesthesia Last Oral Intake Last Oral intake: Last Oral Intake NPO since 20:00 06/10/24 06:13 Meds taken in AM with sips of No 06/10/24 06:13 water? Meds patient instructed to take am of surgery PONV PONV - channel development director: PONV - channel development director Female No 05/20/24 10:34 HX of Motion Sickness No 05/20/24 10:34 HX of N/V After Surgery No 05/20/24 10:34 Non-Smoker No 05/20/24 10:34 Duration of Surgery greater No 05/20/24 10:34 than 60 minutes Number of Risk Factors PONV Score Height & Weight Height & Weight: Anesthesia: Height & Weight Height 5 ft 7 in 06/10/24 06:13 Weight: 72.3 kg 06/10/24 06:13 Body Mass Index (BMI) 25.0 06/10/24 06:13 Respiratory Assessment Respiratory Assessment - channel development director: Respiratory Tract Infection Hx - channel development director Hx Respiratory Tract Infection No 05/20/24 10:34 STOP Sleep Apnea STOP Sleep Apnea - channel development director: STOP Sleep Apnea - channel development director Hx Hypertension No 05/20/24 10:34 Hx Sleep Apnea No 05/20/24 10:34 CPAP BIPAP Do you snore loudly (louder No 05/20/24 10:34 than talking or can be heard Do you often feel tired/ No 05/20/24 10:34 fatigued/ sleepy during daytime? Has anyone observed you stop No 05/20/24 10:34 breathing during sleep? STOP Results Negative 05/20/24 10:34 QUESTION #5 FULL TEXT : Do you snore loudly (louder than talking or can be heard through closed doors)? Tobacco Use History Tobacco Use History - channel development director: Tobacco Use History - channel development director Tobacco Use Smoking Status Current every day smoker 06/03/24 07:02 Hx Tobacco Use Yes 05/20/24 10:34 Years Smoking Packs Smoked per Day Smoking Cessation Date was Yes - quit smoking within 15 05/20/24 10:34 within the last 15 years years Hx Smoking Cessation Date 05/28/19 05/20/24 10:34 Hx Smoking Cessation Counseling Any additional information?: Yes Smoking Status: Current every day smoker (Patient did not smoke today.) Hematologic Medial History Hematologic Hx - channel development director: 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 Specify any problems Hx of Preganancy in last 3 No 05/20/24 10:34 Months Nurse Filling Out Transfusion MGRIFFITH 05/20/24 10:34 & Questions: Date: 05/20/24 05/20/24 10:34 Time: 10:37 05/20/24 10:34 Patient unable to answer at this time (ie. confused, unrespo /Reproduction History /Reproductive History - channel development director: /Reproductive Hx- channel development director Hx Now No 05/20/24 10:34 Gestational Age (in weeks): EDC: Hx Hx Para Hx Section SAB No 05/20/24 10:34 Active Medications Active Medications: Current Medications Generic Name Dose Route Start Last Admin Trade Name Freq PRN Reason Stop Dose Admin Cefazolin Sodium 2 gm/ N/A 20 mls @ 400 mls/hr 06/10/24 14:15 IV 06/10/24 14:17 X1 [facility] Medical History Wears glasses Smoker Accident in home Puncture wound of foot, left Obesity (BMI 30.0-34.9) Anxiety Home Medications ?Medication ?Instructions ?Recorded ?Last Taken ?Type fexofenadine 180 mg tablet 180 mg PO DAILY PRN allergic 07/20/22 Unknown History (Melinda Allergy) symptoms fluoxetine 20 mg capsule See Rx Instructions .Route 01/30/23 06/02/24 Rx .COMPLEX #30 CAPSULES amoxicillin 500 mg tablet 500 mg PO TID #30 tabs 04/01/24 Unknown Rx collagen SUPPELEMENT 1 dose PO DAILY 05/20/24 06/02/24 History metformin 500 mg tablet,extended 500 mg PO BID 05/20/24 06/02/24 History release 24 hr phentermine 37.5 mg tablet 37.5 mg PO DAILY 05/20/24 06/02/24 History trazodone 50 mg tablet 50 mg PO QHS 05/20/24 06/02/24 History tirzepatide (weight loss) 15 15 mg subcut QWEEK 06/10/24 05/31/24 History mg/0.5 mL subcutaneous pen injector (Zepbound) Allergy/AdvReac Type Severity Reaction Status Date / Time amoxicillin Allergy Rash Verified 06/10/24 06:11 Family History Other Cervical cancer Heart disease Melanoma Mental disorder Myocardial infarction Ovarian cancer Surgical History History of breast augmentation History of wisdom tooth extraction History of hysterectomy H/O lumpectomy Social History Smoking Status: Current every day smoker (Patient did not smoke today.) tobacco type: e-cigarettes alcohol intake: current alcohol intake frequency: holidays/special occasions only substance use type: does not use Review of Systems (Anesthesia) ROS Narrative System reviewed and no additional complaints, except as documented.
--- NOTE | 2024-06-10 07:17 | PCM.HP.BLA ---
History and Physical Date of Admission: 06/10/24 [facility] [address] [place] [address] OFFICE VISIT Date of Service: 03/14/24 MR#: [id number] Acct: [id number] Name: DO SANDERS Rep #: [id number] : 1980 Provider: Dr. Eulogio Mello DO Age/Sex: 43/F Location: [facility] [email or web address] Status: Signed Intake Vital Signs 12/11/2405:35 Height 5 ft 7 in Intake Visit Reasons: BL HANDS Accompanied by: Self Is patient in pain?: No Allergies No Known Allergies Allergy (Verified 03/14/24 09:19) Medications ?Medication ?Instructions ?Recorded ?Confirmed ?Type Lactobacillus 25 billion cap PO 11/29/21 03/14/24 History cell-Bifido 25 billion [id number] capsule (Women's Probiotic) fexofenadine 180 mg tablet 180 mg PO DAILY PRN 07/20/22 03/14/24 History (Melinda Allergy) fluoxetine 20 mg capsule See Rx Instructions .Route 01/30/23 03/14/24 Rx .COMPLEX #30 CAPSULES PFSH Medical History Acute pharyngitis Accident in home Former smoker Puncture wound of foot, left Obesity (BMI 30.0-34.9) Anxiety Surgical History History of wisdom tooth extraction History of hysterectomy H/O lumpectomy Family History Other Cervical cancer Heart disease Melanoma Mental disorder Myocardial infarction Ovarian cancer Social History Smoking Status: Former smoker alcohol intake: current alcohol intake frequency: holidays/special occasions only substance use type: does not use HPI BL HANDS Details: This documentation accurately reflects the service provided and the decisions made by me, Dr. Eulogio Mello, 03/14/24 0809. Part of today?s visit was documented by [ ], acting as scribe. DO SANDERS is a 43 year old F 03/14/2024: Here for EMG review. No change in her hands or wrist. Left is still worse and she is right hand dominant. 03/07/2024 visit: 43 year old F here today for bilateral hand numbness and tingling that she has been having for 12 years. When she wakes up her hands are swollen and she wakes up in the middle of the night she gets sharp pain in her wrists. She does take ibuprofen for the pain. The left hand is worse. She states she has tried night bracing and it doesn't give her relief. If she tries to do anything with her hand elevated her hands go numb. She would like to discuss next steps. Patient is right hand dominant. Symptoms worse in the left Ortho Exam General General: Yes no acute distress Neurologic: Yes alert and Yes oriented x3 Psychologic: Yes reasonable and appropriate Right Wrist/Hand Skin/Wound: No Swelling, No Ecchymosis, Yes nail intact and Yes capillary refill normal Right Wrist: No Thenar Atrophy or Hypothenar Atrophy Sensation: Radial: I, Ulnar: I and Median: I WRIST: full spu 85 extension 49 flexion positive tinels +phalens +durken 5/5 abbduction strngth She is not tender and there is no bogginess of her MCPs There is no swelling that I can appreciate in her fingers or hand Left Wrist/Hand Skin/Wound: No Swelling, No Ecchymosis, Yes nail intact, No capillary refill normal and No erythema Left Wrist: Yes Tinel's and Yes Phalen's; No Thenar Atrophy and No Hypothenar Atrophy Sensation: Radial: I, Ulnar: I and Median: I WRIST: 75 extension, passive 82 49 flexion full supination and pronation 5/5 abbduction strngth She is not tender and there is no bogginess of her MCPs There is no swelling that I can appreciate in her fingers or hand Right Elbow ELBOW: negative tinels Left Elbow ELBOW: negative tinels Head: Normocephalic Atraumatic Chest: symmetrical rise, non-labored breathing, no audible wheeze Abdomen: no guarding, non-rigid Supplemental Info 03/12/2024 EMG bilateral upper extremity: 1. Electrodiagnostic findings suggestive of bilateral median mononeuropathy. This is consistent with a mild to moderate bilateral carpal tunnel syndrome. 2. No electrodiagnostic evidence is noted for cervical radiculopathy. Coding Level of Care Code Off vis,est,level 3 Diagnoses Bilateral carpal tunnel syndrome G56.03 Assessment and Plan Assessment and Plan (1) Bilateral carpal tunnel syndrome: Status: Acute Plan Patient is here today for EMG review. Spoke with patient that her EMG does show mild to moderate bilateral carpal tunnel syndrome bilateral. She has tried the night bracing with no relief. Discussed with patient that her other treatment options are do nothing, injection, nerve glide exercises or carpal tunnel release. I did advise patient hat after surgery for the first 2 weeks she will have a .5lb restriction then for the next 1 weeks she will have a 5lb restriction. I also did inform patient that it's not a 100% guarantee that the surgery will relieve all of her symptoms and that it would depend on how her nerve regenerates. Reviewed the pre-operative plans with the patient. Risks and benefits of the procedure were fully explained, including but not limited to infection, neurovascular injury, continued pain, incisional hypersensitivity and pillar pain. The patient understands all the risks and does wish to proceed with written consent. We will proceed with a left open carpal tunnel release and a right carpal tunnel injection Tentative surgery date April 22, 2024 Follow up for 2 weeks post-op or sooner if pain, swelling, numbness or associated symptoms, or concerns develop. All questions answered. Patient in agreement of plan. Plan Details Goals & Barriers: Goals Decrease pain Improve ROM Improve workability 03/14/24 1000 <Electronically signed by Eulogio Mello DO> Date Eulogio Mello DO Cosigner Signature: Date (if applicable) CC: ~ I have examined the patient and the H&P has been reviewed. There are no clinical changes since date of exam.
[2024-06-10] MEDS: Cefazolin 2 GM in Syringe IV (07:28)
[2024-06-10] MEDS: Bupiv/Epi 0.25% 30 ML Vial (07:34)
[2024-06-10] MEDS: Bupivacaine 0.5% PF 10 ML VIAL (07:40)
[2024-06-10] MEDS: MethylPREDNISolone Acetate 40 MG/ML Vial (07:40)
--- NOTE | 2024-06-10 07:54 | OP.PCM_ITS ---
Operative Report (Standard) Operative Information Date of Procedure: 06/10/24 Pre-Operative Diagnosis: Bilateral carpal tunnel syndrome Post-Operative Diagnosis: Same Surgery/Procedure Performed: Right open carpal tunnel release left carpal tunnel injection germination testing manager: Yes Arson And Bomb Investigator: Sukhdeep Addison Tasks completed by licensed sales assistant: Opening & closing Type of Anesthesia: Local and MAC RN Documented Start/Stop Times: Operation Date: 06/10/24 07:30 Case Time Into Pre-Op 06/10/24 06:03 Out of Pre-Op 06/10/24 07:21 Anesthesia Start 06/10/24 07:23 Into Room 06/10/24 07:23 Procedure Start 06/10/24 07:36 Procedure End 06/10/24 07:50 Anesthesia End 06/10/24 07:52 Out of Room 06/10/24 07:52 Procedure Start Time: 07:36 Procedure Stop Time: 07:50 Select all DRAINS/GRAFTS/IMPLANTS that apply: None Estimated Blood Loss: 0 Specimen collected: No Description of surgery: Preoperative diagnosis; bilateral carpal tunnel syndrome Postoperative diagnosis; same Procedure: [Right] open carpal tunnel release left carpal tunnel injection Anesthesia: Local with MAC Tourniquet time; [9] minutes 250 mm Hg Complications: None Indication for procedure; This is a 43-year-old [female] with long-standing symptoms consistent with carpal tunnel syndrome the patient did have electrodiagnostic evidence of this and has failed conservative treatment. Risks benefits and alternatives were reviewed including risks of bleeding infection nerve artery tissue damage need for further surgery and continued pain and symptoms, hypersensitivity to scar and Pillar pain. Procedure; The patient was met in the preoperative holding area the operative extremity was identified by both patient and physician and was marked the patient was met by anesthesia and brought back to the operating room and transferred to the operating table in the supine position. Anesthesia was started. A well-padded tourniquet was placed on the operative upper extremity. The patient was prepped and draped in the usual sterile fashion. A timeout was called to ensure the proper patient procedure and extremity were being contemplated. 0.5 percent [ Lidocaine] with epinephrine was injected into the incisional area. An Esmarch was used to exsanguinate the extremity. The tourniquet was inflated to 250 mmHg. A midline incision was made with a 15 corinne de scalpel between the thenar and hypothenar eminence. This was carried down through the skin and subcutaneous tissue. Loretta retractors were then used, a deep blade scalpel was used to make a deep incision in the palmar aponeurosis. The loretta retractors were then placed deep to this and the transverse carpal ligament was identified a perforation was made with a scalpel and a Littler scissors were used to complete the release of the transverse carpal ligament distally under direct visualization with the tips facing ulnarly until the perivascular fat was reached. Then turning our attention proximally using a tension slide technique the proximal extent of the transverse carpal ligament was released . There was noted to be significant hypertrophy of the transverse carpal ligament. The wound was thoroughly irrigated and was closed with 4-0 nylon vertical mattress stitches. Dressing was applied in the form of xeroform 4 x 4, web roll and an chelsi wrap. Tourniquet was let down there is no intraoperative complications patient tolerated the procedure well. The left hand was then prepped with alcohol and an injection with 20 mg of Depo-Medrol and half cc of 0.25% bupivacaine was injected into the carpal tunnel Band-Aid was applied and was transferred to the PACU. All counts were correct. Surgical Findings: As above Complications Complications: No
--- NOTE | 2024-06-10 07:56 | EX.PCM.DISCH ---
Discharge Instructions Diet Discharge Diet: No restrictions Dressing / Incision Call your doctor if you observe: Shortness of breath and Chest pain Additional Dressing/Incision Instructions:: Ice and elevate operative extremity next 72 hours. Keep dressing on clean and dry for 48 hours then may remove and allow warm soapy water to rinse over incision but do not submerge until sutures are out. Then apply bandaid over incision and change daily. encourage finger range of motion. Not lift more than 1/2 pound. Minimize narcotic use only as needed and directed, may use OTC NSAID and Tylenol to supplement/substitute for pain control. Follow Up Care Please Follow Up With: Eulogio Mello DO When: 2 weeks Test Results: Test results from this visit will be discussed in further detail at your follow-up appointment, if applicable. Discharge Plan Admission Primary Reason for Your Visit: Right carpal tunnel release Attending Provider: Eulogio Mello Primary Care Provider: Yonathan Harper Instructions Print Language: Norwegian Discharge Orders/Prescriptions Prescriptions: New oxycodone 5 mg tablet 5 - 10 mg PO Q4H PRN (Reason: pain) 3 Days Qty: 10 0RF Continued fexofenadine [Melinda Allergy] 180 mg tablet 180 mg PO DAILY PRN (Reason: allergic symptoms) amoxicillin 500 mg tablet 500 mg PO TID Qty: 30 0RF phentermine 37.5 mg tablet 37.5 mg PO DAILY metformin 500 mg tablet extended release 24 hr 500 mg PO BID collagen SUPPELEMENT 1 dose PO DAILY trazodone 50 mg tablet 50 mg PO QHS Zepbound 15 mg/0.5 mL pen injector 15 mg subcut QWEEK fluoxetine 20 mg capsule See Rx Instructions .ROUTE .COMPLEX Qty: 30 0RF Dose Instruction: TAKE 1 CAPSULE BY MOUTH DAILY Rx Instructions: TAKE 1 CAPSULE BY MOUTH DAILY Referrals / Follow Up: Yonathan Harper, TYPING OFFICE WORKER-C [Primary Care Provider] - Disposition Disposition (needs filled in before D/C Order can be placed): Home, Self Care
--- NOTE | 2024-06-10 08:03 | PCM.POST.ANE ---
Anesthesia: Postop Eval I Current Vital Signs Temperature: 98.3 F Pulse Rate: 94 Blood Pressure: 111/61 Respiratory Rate: 16 Pulse Ox: 99 Oxygen Delivery Method: Room Air Assessment Airway patent: Yes Spontaneous unlabored respirations: Yes Mental status: Awake and Calm nausea: No Vomiting: No Anesthesia Complication: No Fluid Hydration Crystalloid volume administer (ml): 10 Total IV fluid infused: 10 Progress Note Anesthesia document: Postop Eval 1 completed: Yes
--- NOTE | 2024-06-10 08:58 | POSTOPAN2_ITS ---
Anesthesia Postop Eval I Sum Postop Eval Completion status Anesthesia document: Postop Eval 1 completed: Yes Anesthesia Postop Eval I Summary Anesthesia Postop Eval I Summary: Anesthesia Postop Eval I: Assessment Summary Airway patent Yes 06/10/24 08:04 HAND TUBE [email or web address] Spontaneous unlabored Yes 06/10/24 08:04 HAND TUBE [email or web address] respirations Mental status Awake,Calm 06/10/24 08:04 HAND TUBE [email or web address] nausea No 06/10/24 08:04 HAND TUBE [email or web address] Vomiting No 06/10/24 08:04 HAND TUBE [email or web address] Anesthesia Postop Eval I: Fluid Summary Crystalloid volume administer 10 06/10/24 08:04 HAND TUBE [email or web address] (ml) Colloids volume administered ( ml) Blood Product volume administered (ml) Total IV fluid infused 10 06/10/24 08:04 HAND TUBE [email or web address] Anesthesia Postop Eval I: Summary Notes Anesthesia Complication No 06/10/24 08:04 HAND TUBE [email or web address] Anesthesia Complication Comment: Post-operative progress note Anesthesia: Postop Eval II Evaluation Mental status: Awake and Calm Pain Level: 0 nausea: No Vomiting: No Complications Anesthesia Complication: No
--- NOTE | 2024-06-10 08:58 | PCM.POSTANE2 ---
Anesthesia Postop Eval I Sum Postop Eval Completion status Anesthesia document: Postop Eval 1 completed: Yes Anesthesia Postop Eval I Summary Anesthesia Postop Eval I Summary: Anesthesia Postop Eval I: Assessment Summary Airway patent Yes 06/10/24 08:04 OFFICE [email or web address] Spontaneous unlabored Yes 06/10/24 08:04 OFFICE [email or web address] respirations Mental status Awake,Calm 06/10/24 08:04 OFFICE [email or web address] nausea No 06/10/24 08:04 OFFICE [email or web address] Vomiting No 06/10/24 08:04 OFFICE [email or web address] Anesthesia Postop Eval I: Fluid Summary Crystalloid volume administer 10 06/10/24 08:04 OFFICE [email or web address] (ml) Colloids volume administered ( ml) Blood Product volume administered (ml) Total IV fluid infused 10 06/10/24 08:04 OFFICE [email or web address] Anesthesia Postop Eval I: Summary Notes Anesthesia Complication No 06/10/24 08:04 OFFICE [email or web address] Anesthesia Complication Comment: Post-operative progress note Anesthesia: Postop Eval II Evaluation Mental status: Awake and Calm Pain Level: 0 nausea: No Vomiting: No Complications Anesthesia Complication: No
== END 2024-06-10 08:44 | disposition home or self-care (01) ==
LOC: SDC 05:58 → AC 05:58
PROVIDERS: PCP Nurse Practitioner Family; Referring Provider Orthopaedic Surgery; Visit Provider Orthopaedic Surgery
PROC: (CPT 64721; principal; 2024-06-10 07:15)
DX: G56.03 Carpal tunnel syndrome, bilateral upper limbs (principal); Z87.891 Personal history of nicotine dependence; E66.9 Obesity, unspecified; Z79.899 Other long term (current) drug therapy; Z79.84 Long term (current) use of oral hypoglycemic drugs
CPT/HCPCS: 64721; 20526; 01810

== ENCOUNTER → 2024-08-07 | Outpatient (CLI) | payer OTHER, SELFPAY ==
--- NOTE | 2024-08-07 10:35 | MRI_ITS ---
PROCEDURE: LOWER EXT/NO JT/W/O REASON FOR EXAM: POSSIBLE HAMSTRING RUPTURE TECHNIQUE: MRI of the right thigh without contrast. COMPARISON: Right femur study of 08/04/2024. FINDINGS Disruption and retraction of the tendon of the right biceps femoris (long head) and semitendinosis muscles is seen from the right ischium, with moderate amount of associated hematoma. No abnormal muscle signal is seen. No hip joint effusion is seen. No evidence of femoral head osteonecrosis. No abnormal osseous signal is noted. MRI/Lower Ext/No Jt/w/o IMPRESSION: Disruption and retraction of the tendon of the right biceps femoris (long head) and semitendinosis muscles is seen from the right ischium, with moderate amount of associated hematoma. Reading Location: [address]
== END | disposition home or self-care (01) ==
LOC: MRI 10:30
PROVIDERS: PCP Nurse Practitioner Family; Referring Provider Nurse Practitioner Family; Visit Provider Nurse Practitioner Family
DX: S76.301A Unspecified injury of muscle, fascia and tendon of the posterior muscle group at thigh level, right thigh, initial encounter (principal); X58.XXXA Exposure to other specified factors, initial encounter
CPT/HCPCS: 73718

== ENCOUNTER 2024-10-17 07:30 | Outpatient (RCR) | payer OTHER, SELFPAY ==
--- NOTE | 2024-08-29 13:53 | HP.PTEVAL_ITS ---
Patient's Visit Information Visit Information Visit Information: DO SANDERS is a 44 year old F referred to Physical Therapy by Dr. Daryl Peralta MD with a diagnosis of R proximal hamstring rupture 07/16/24. Date of Evaluation: 08/29/24 Physical Therapist: Harrison Smith, PT, ATC Visit Plan Frequency: 1-2x /Week Duration: 6-8 weeks Plan: Follow protocol in chart. Subjective Subjective: DOS: 08/13/24. Pt reports she tore her R hamstring and had to have it repaired. Pt reports her muck boots got stuck in the mud, and when she pulled up with her leg, her hamstring ruptured. No PMHx of R hamstring pathology in the past. Pt reports she is feeling better overall, but notes she still has some pain and spasms in R hamstring. Pt reports she has numbness in her R distal glute area at this time, so it is hard for her to feel if anything is really pulling down there. Pt reports no sleep difficulty at this time as long as she takes her pain meds. 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 Pt reports she is NWBing at this time and will be for 3 weeks. Pt lives in a one story house that she has to negotiate 2 stairs to enter. Pt is able to hop up her stairs. Pt reports her R HS pain is rated at 6/10 while sitting here in the clinic. Pain R hamstring: Pain Intensity (Out of 10): 6 Pain Intensity Range: 6 Objective Objective: Neuro: B LE sensation is WNL to light touch. ROM: L knee 0-135 degrees; R knee 0-115 degrees MMT: L knee flex= 32 #F, ext= 55 #F. R knee not tested Gait: Pt ambulates with 2 crutches, NWBing. Balance/Special Test Scores Lower Extremity Functional Score: 17 Goals Goal 1:: Decrease R hamstring pain x 50% to aid with sleep Goal Time Frame: 6-8 Weeks Goal 2:: Increase R hamstring strength to 90% of L HS strength to aid with RTW Goal Time Frame: 6-8 Weeks Goal 3:: Pt will ambulate 1000 feet with no AD to aid with RTW without limitation Goal Time Frame: 6-8 Weeks Goal 4:: I with HEP Goal Time Frame: 6-8 Weeks Rehabilitation Potential Physical Therapy Diagnosis: Pt has R LE weakness, limited ROM, and pain sec ondary to R hamstring rupture. Rehabilitation Potential: Excellent Anticipated Interventions Patient/Client Instruction: Educate patient on: Condition and Plan of Care For the Purpose of:: To improve self management Therapeutic Exercise to Include: Strength training, Endurance training, Balance training, Flexibilty training, Gait and locomotor training, Active ROM and Dynamic Lumbar Stabilization For the Purpose of:: To decrease pain, To increase ROM and To improve muscle performance and motor function Cryotherapy (ice pack, ice massage): Yes For the Purpose of:: To decrease pain Text: Thank you for the opportunity to evaluate your patient. For Medicare and Medicare HMO plans, please review the plan of care and approve it. It will need to be FAXED BACK to us at [phone] for Medicare purposes. For Medicare only, by signing this I certify the plan of care. Please let me know if there are questions or concerns regarding this plan of care. Physician Signature: Date:
--- NOTE | 2024-12-01 14:35 | HP.PT.NRP ---
Patient Information Patient Information: DO SANDERS was seen in my office for initial evaluation on 08/29/24. The following Plan of Care was established for this patient: POC Established Initial Frequency: 1-2x /Week Initial Duration: 6-8 weeks Anticipated Interventions Patient/Client Instruction: Educate patient on: Condition and Plan of Care For the Purpose of:: To improve self management Therapeutic Exercise to Include: Strength training, Endurance training, Balance training, Flexibilty training, Gait and locomotor training, Active ROM and Dynamic Lumbar Stabilization For the Purpose of:: To decrease pain, To increase ROM and To improve muscle performance and motor function Cryotherapy (ice pack, ice massage): Yes For the Purpose of:: To decrease pain Last Seen Last Seen: This patient was last seen in our office . Pertinent comments regarding their Physical therapy will appear below: Pt has not returned for greater than 30 days and is discontinued at this time. At this point I will be discontinuing this patient from physical therapy. I would be happy to see this patient again in the future if found appropriate by the physician. Thank you! Harrison Smith, PT, ATC Balance/Gait/Functional tests Balance/Special Test Scores Lower Extremity Functional Score: 17
== END 2024-10-17 19:00 | disposition home or self-care (01) ==
LOC: PT 07:30
PROVIDERS: PCP Nurse Practitioner Family; Referring Provider Orthopaedic Surgery Sports Medicine; Visit Provider Orthopaedic Surgery Sports Medicine
DX: S76.311D Strain of muscle, fascia and tendon of the posterior muscle group at thigh level, right thigh, subsequent encounter (principal)
CPT/HCPCS: 97110; 97140; 97161

== ENCOUNTER 2024-12-30 05:59 | Day surgery (SDC) | payer OTHER, SELFPAY ==
[2024-12-30] VITALS (8 sets, daily range): BP systolic 107–118; BP diastolic 73–81; PULSE 71–91; RESP 14–16; TEMP 36.2–36.4; O2SAT 95–99; BMI 27.1
--- OUTSIDE RECORDS SUMMARY | 2024-12-30 06:14 | XMS RPT_ITS | CCD ---
Author Organization [facility] Care Team Providers Care Trauma Doctor Name Role Phone Anselmo Rossi Unavailable Spring, Cathy Shields Admitting Unavailable Spring, Cathy Shields Attending Unavailable Spring, Cathy Shields Primary Care Unavailable ACSO Consulting Unavailable Olivia, Ana Maria Primary Care Provider Olivia, Ana Maria Unavailable OLIVIA ANA MARIA Referring Unavailable OLIVIA, ANA MARIA Attending Unavailable OLIVIA, ANA MARIA Primary Care Unavailable Olivia, Ana Maria Primary Care Provider Olivia, Ana Maria Unavailable Olivia, Ana Maria Primary Care Provider Olivia, Ana Maria Unavailable Oostra, Shahla Unavailable Robyn Bergeron Unavailable Unavailable Olivia Ana Maria LAU Primary Care Provider Olivia MD, Ana Maria Unavailable Maddy LAU, Shahla Unavailable Elyssa PUTNAM, Robyn Unavailable Unavailable SYSTEM, PROVIDER NOT IN Attending Unavaila ble SYSTEM, PROVIDER NOT IN Referring Unavaila ble OLIVIAANA MARIA Geiger Primary Care Unavailable OOSTRASHAHLA Admitting Unavailable OLIVIA, ANA MARIA Primary Care Unavailable OOSTRA, SHAHLA RESTREPO Attending Unavailable OOSTRA, SHAHLA RESTREPO Referring Unavailable OLIVIA, ANA MARIA Primary Care Unavailable OOSTRA, SHAHLA RESTREPO Attending Unavailable OLIVIA, ANA MARIA Primary Care Unavailable OOSTRA, SHAHLA RESTREPO Attending Unavailable OOSTRA, SHAHLA RESTREPO Referring Unavailable OLIVIA, ANA MARIA Primary Care Unavailable OOSTRA, SHAHLA RESTREPO Attending Unavailable OOSTRA, SHAHLA RESTREPO Referring Unavailable OLIVIA, ANA MARIA Referring Unavailable OLIVIA, ANA MARIA Primary Care Unavailable OOSTRA, SHAHLA RESTREPO Attending Unavailable OOSTRA, SHAHLA RESTREPO Admitting Unavailable OLIVIA, ANA MARIA Primary Care Unavailable OOSTRA, SHAHLA RESTREPO Referring Unavailable SYSTEM, PROVIDER NOT IN Attending Unavaila ble SYSTEM, PROVIDER NOT IN Referring Unavaila ble OLIVIA, ANA MARIA Primary Care Unavailable ANSELMO ROSSI Primary Care Unavailable VIRA TSE Admitting Unavailable OLIVIA, ANA MARIA Primary Care Unavailable ROBYN RAI Admitting Unavailable ROBYN RAI Referring Unavailable Olivia Ana Maria LAU Primary Care Provider [phone] Ana Maria Baker MD Unavailable Sherry Bagley PA-C Unavailable DESI PRESCOTT Attending Unavailable OLIVIA, ANA MARIA Primary Care Unavailable OLIVIA, ANA MARIA Attending Unavailable OLIVIA, ANA MARIA Primary Care Unavailable KRIS GAN Attending Unavailable OLIVIA, ANA MARIA Primary Care Unavailable DESI PRESCOTT Attending Unavailable OLIVIA, ANA MARIA Primary Care Unavailable OLIVIA, ANA MARIA Attending Unavailable OLIVIA, ANA MARIA Primary Care Unavailable OLIVIA, ANA MARIA Admitting Unavailable OOSTRA, SHAHLA RESTREPO Attending Unavailable OLIVIA, ANA MARIA Referring Unavailable OLIVIA, ANA MARIA Primary Care Unavailable OOSTRA, SHAHLA RESTREPO Attending Unavailable OLIVIA, ANA MARIA Primary Care Unavailable OOSTRA, SHAHLA RESTREPO Attending Unavailable OLIVIA, ANA MARIA Primary Care Unavailable OLIVIA, ANA MARIA Attending Unavailable OLIVIA, ANA MARIA Primary Care Unavailable OOSTRA, SHAHLA RESTREPO Attending Unavailable OLIVIA, ANA MARIA Primary Care Unavailable SHERRY BAGLEY Attending Unavailable OLIVIA, ANA MARIA Primary Care Unavailable YOBANI HIDALGO Attending Unavailable OLIVIA, ANA MARIA Primary Care Unavailable Loivia , Ana Maria Primary Care Provider Olivia LAU, Ana Maria Unavailable Robyn Bergeron RN Unavailable Unavailable Sherry Bagley PA-C Unavailable OLIVIA, ANA MARIA Primary Care Unavailable OLIVIA, ANA MARIA Referring Unavailable OLIVIA, ANA MARIA Admitting Unavailable CHATO BRITTON Attending Unavailable OLIVIA, ANA MARIA Admitting Unavailable OLIVIA, ANA MARIA Primary Care Unavailable OLIVIA, ANA MARIA Primary Care Unavailable CATHY SALGADO Admitting Unavailable OLIVIA, ANA MARIA Attending Unavailable OLIVIA, ANA MARIA Primary Care Unavailable OLIVIA, ANA MARIA Referring Unavailable OLIVIA, ANA MARIA Primary Care Unavailable OLIVIA, ANA MARIA Admitting Unavailable OLIVIA, ANA MARIA Primary Care Unavailable OLIVIA, ANA MARIA Admitting Unavailable OLIVIA, ANA MARIA Primary Care Unavailable OLIVIA, ANA MARIA Referring Unavailable OLIVIA, ANA MARIA Admitting Unavailable CHATO BRITTON Attending Unavailable OLIVIA, ANA MARIA Primary Care Unavailable CAYLA HERNANDEZ Attending Unavailable OLIVIA, ANA MARIA Referring Unavailable OLIVIA, ANA MARIA Admitting Unavailable Olivia Ana Maria LAU Unavailable Care Physician, No Primary Primary Care Provider Unavailable Care Physician, No Primary Referring Provider Un available DALY Santiago Attending Provider Dr. Dg Flores Attending Provider Dr. Chasidy Norton Attending Provider Care Physician, No Primary Primary Care Provider Unavailable Care Physician, No Primary Referring Provider Un available DALY Santiago Attending Provider DALY Matthews Attending Provider Dr. Daria Martines Attending Provider Care Physician, No Primary Primary Care Provider Unavailable Care Physician, No Primary Referring Provider Un available MD Daria Martines Primary Care Provider Unava ilable MD Daria Martines Referring Provider Unavaila ble DALY Comer Attending Provider Unavailab le Care Physician, No Primary Primary Care Provider Unavailable Care Physician, No Primary Referring Provider Un available DALY Santiago Attending Provider OliviaAna Maria geiger MD Unavailable OliviaAna Maria geiger MD Unavailable MD Daria Cummings Primary Care Provider U navailable MD Daria Cummings Referring Provider Unav ailable Leroy PROGRAM SUPPORT CLERK, PROGRAM SUPPORT CLERK-C Kartik Attending Provider Padgett VSC, PROGRAM SUPPORT CLERK-C Kartik Primary Care Provider Padgett VSC, PROGRAM SUPPORT CLERK-C Kartik Referring Provider DALY Santiago Attending Provider Dr. Brenton Gifford Attending Provider Padgett CLASS A LINEMAN, Kartik Primary Care Provider Padgett PROGRAM SUPPORT CLERK-C, Kartik Primary Care Provider Funmilayo AGUIRRE, Dr. Krishnan Attending Provider Funmilayo AGUIRRE, Dr. Krishnan Referring Provider Funmilayo AGUIRRE, Dr. Krishnan Other Provider Padgett PROGRAM SUPPORT CLERK-C, Kartik Referring Provider Liu PROGRAM SUPPORT CLERK-C, Brooke Attending Provider Mark LAU, Dr. Conte Attending Provider Liu PROGRAM SUPPORT CLERK-C, Brooke Referring Provider Olivia LAU, Ana Maria Unavailable Unavailable Padgett PROGRAM SUPPORT CLERK-C, Kartik Primary Care Provider Funmilayo AGUIRRE, Dr. Krishnan Attending Provider Kathryn LAU, Dr. Daryl Geiger Attending Provider Kathryn LAU, Dr. Daryl Geiger Referring Provider Olivia LAU, Ana Maria Unavailable PADGETT, KARTIK Primary Care Unavailable WARNER, ROBYN Attending Unavailable PADGETT, KARTIK Primary Care Unavailable WARNER, ROBYN Attending Unavailable PADGETT, KARTIK Primary Care Unavailable WARNER, ROBYN Attending Unavailable PADGETT, KARTIK Primary Care Unavailable WARNER, ROBYN Attending Unavailable PADGETT, KARTIK Primary Care Unavailable WARNER, ROBYN Attending Unavailable PADGETT, KARTIK Primary Care Unavailable WARNER, ROBYN Attending Unavailable WARNER, ROBYN Referring Unavailable PADGETT, KARTIK Primary Care Unavailable Padgett VSC, Kartik Primary Care Unavailable Eulogio Mello Attending Unavailable Warner, Robyn Referring Unavailable Warner, Robyn Attending Unavailable Padgett VSC, Kartik Primary Care Unavailable Padgett VSC, Kartik Referring Unavailable Brooke Liu Attending Unavailable Padgett VSC, Kartik Primary Care Unavailable Padgett VSC, Kartik Referring Unavailable Padgett VSC, Kartik Primary Care Unavailable Eulogio Mello Attending Unavailable Padgett VSC, Kartik Primary Care Unavailable Borruso, Eulogio Attending Unavailable Padgett VSC, Kartik Referring Unavailable Padgett VSC, Kartik Primary Care Unavailable Daniele Parkinson Attending Unavailable Padgett VSC, Kartik Referring Unavailable Padgett VSC, Kartik Primary Care Unavailable Borruso, Eulogio Attending Unavailable Padgett VSC, Kartik Referring Unavailable Padgett VSC, Kartik Referring Unavailable Brooke Liu Attending Unavailable Padgett VSC, Kartik Primary Care Unavailable Padgett VSC, Kartik Primary Care Unavailable Dg Flores Attending Unavailable Padgett VSC, Kartik Referring Unavailable Padgett VSC, Kartik Primary Care Unavailable Borruso, Eulogio Attending Unavailable Chasidy Norton Attending Unavailable Padgett VSC, Kartik Referring Unavailable Padgett VSC, Kartik Primary Care Unavailable Jessica Sorenson Attending Unavailable Padgett VSC, Kartik Primary Care Unavailable Borruso, Eulogio Consulting Unavailable Borruso, Eulogio Referring Unavailable Padgett VSC, Kartik Primary Care Unavailable Borruso, Eulogio Consulting Unavailable Borruso, Eulogio Referring Unavailable Borruso, Eulogio Attending Unavailable Brooke Liu Referring Unavailable Brooke Liu Attending Unavailable Padgett VSC, Kartik Primary Care Unavailable Padgett VSC, Kartik Primary Care Unavailable Daryl Peralta Referring Unavailable Daryl Peralta R Attending Unavailable Warner, Robyn Referring Unavailable Warner Robyn Attending Unavailable Padgett VSC, Kartik Primary Care Unavailable Padgett VSC, Kartki Primary Care Unavailable Borruso, Eulogio Referring Unavailable Borruso, Eulogio Attending Unavailable Padgett VSC, Kartik Primary Care Unavailable Borruso, Eulogio Referring Unavailable Borruso, Eulogio Attending Unavailable Allergies Allergy Classification Reported Allergen(s) Allergy Type Date of Onset Reaction(s) Facility (11 sources) Amoxicillin; Translations: [AMOXICILLIN] Drug Allergy 04-09-2024 [facility] (1 source) Amoxicillin Drug Allergy 12-16-2024 [facility] Repository Medications Current Medications Medication Drug Class(es) Dates Sig (Normalized) Sig (Original) 0.5 ml bordetella pertussis filamentous hemagglutinin vaccine, inactivated 0.01 mg/ml / bordetella pertussis fimbriae 2/3 vaccine, inactivated 0.01 mg/ml / bordetella pertussis pertactin vaccine, inactivated 0.006 mg/ml / bordetella pertussis toxoid vaccine, inactivated 0.005 mg/ml / diphtheria toxoid vaccine, inactivated 4 unt/ml / tetanus toxoid vaccine, inactivated 10 unt/ml injection (1 source) Inactivated Corynebacterium Diphtheriae Vaccine, Inactivated Clostridium Tetani Vaccine Start: 01-11-2018 End: 01-11-2018 diptheria, tetanus toxoid, acellular pertusssis (ADACEL) 2 Lf-(2.5-5-3-5 mcg)-5Lf/0.5 mL injection Sign this order in conjunction with the immunization order to satisfy [place] Board of Pharmacy Positive ID requirements for immunization orders. 1 mL 0 01/11/2018 01/11/2018 Active ALPRAZolam 0.25 mg oral tablet (17 sources) Benzodiazepine Start: 08-24-2020 End: 09-21-2020 ALPRAZolam (XANAX) 0.25 MG tablet Indications: Stress at home Take 1 (one) tablet (0.25 mg total) by mouth 3 (three) times a day as needed for anxiety (Days supply per fill: 3) . 42 tablet 0 08/26/2020 09/21/2020 Discontinued amoxicillin 500 mg oral tablet (2 sources) Penicillin-class Antibacterial Start: 04-01-2024 take 1 tablet by mouth three times daily Amoxicillin 500 mg tablet Active 500 mg PO THREE TIMES A DAY 30 April 01, 2024 1:00am betamethasone 0.5 mg/ml / clotrimazole 10 mg/ml topical cream (20 sources) Azole Antifungal, Corticosteroid Start: 05-03-2022 End: 04-15-2024 clotrimazole-beta methasone (LOTRISONE) cream Indications: Vulvovaginal itching Apply 1 application to affected area two times a day. 15 g 04/15/2024 Active Comment on above: Apply 1 application to affected area twice daily. cetirizine hydrochloride 10 mg oral tablet (20 sources) Histamine-1 Receptor Antagonist Start: 06-22-2020 take 1 tablet by mouth once daily in the morning cetirizine (ZYRTEC) 10 MG tablet Take 10 mg by mouth every morning DOS . 0 06/22/2020 Active End: 12-26-2023 cetirizine HCl (ZYRTEC ORAL) Take by mouth as needed. 0 12/26/2023 Discontinued cetirizine HCl ( ZYRTEC ORAL) Take by mouth as needed. 0 Active cetirizine HCl ( ZYRTEC ORAL) Take by mouth. 0 Active Comment on above: Take by mouth. Take by mouth as nee ded. Collagen (5 sources) COLLAGEN MISC Ac tive collagen SUPPELEMENT (2 sources) Start: 05-20-20 collagen SUPPELEMENT Active 1 NMA PO DAILY May 20, 2024 1:00am cyclobenzaprine hydrochloride 10 mg oral tablet (2 sources) Muscle Relaxant Start: 08-08-19 take 1 tablet by mouth three times daily as needed for pain Cyclobenzaprine 10 mg tablet Active 10 mg PO THREE TIMES A DAY as needed for muscle spasm 30 August 07, 2024 12:00am May take up to 3 times daily as needed for muscle pain, muscle spasms. Do not combine with pain medications. Do not drive, operate machinery or safety sensitive work within 8 hours of dosing. escitalopram 10 mg oral tablet (3 sources) Serotonin Reuptake Inhibitor Start: 02-09-20 End: 02-09-20 take 1 tablet by mouth once daily escitalopram oxalate (LEXAPRO) 10 MG tablet Take 1 (one) tablet (10 mg total) by mouth daily . 30 tablet 02/08/2021 02/08/2022 Active fexofenadine hydrochloride 180 mg oral tablet (18 sources) Histamine-1 Receptor Antagonist Start: 08-05-19 End: 07-20-19 23 take 1 tablet by mouth once daily as needed Fexofenadine (Melinda Allergy) 180 mg tablet Active 180 mg PO DAILY as needed for allergic symptoms July 20, 2022 4:03pm fluconazole 150 mg oral tablet (20 sources) Azole Antifungal Start: 04-15-20 End: 04-15-20 24 take 1 tablet by mouth once fluconazole (DIFLUCAN) 150 mg tablet Take 1 tablet by mouth one time only for 1 dose. 1 tablet 1 04/15/2024 04/15/2024 Active Start: 04-01-2024 End: 05-20-2024 take 1 tablet by mouth once daily Fluconazole 200 mg tablet Discontinued 200 mg PO DAILY 2 0 April 01, 2024 1:00am May 20, 2024 11:29am take as discussed in office today Start: 11-08-2023 End: 10-11-2024 Fluconazole 150 mg tablet Discontinued 150 mg PO Every 3 Days 2 0 November 08, 2023 12:00am March 07, 2024 9:04am may repeat second dose 72 hrs after first dose if symptoms persist Start: 03-18-2023 End: 06-04-2023 take 1 tablet by mouth once daily Fluconazole 150 mg tablet Discontinued 150 mg PO DAILY 1 0 March 18, 2023 12:00am June 04, 2023 9:57am take at completion of antibiotic course Start: 04-27-2022 End: 04-27-2022 take 1 tablet by mouth once fluconazole (DIFLUCAN) 150 mg tablet Take 1 tablet by mouth one time only for 1 dose. 1 tablet 0 04/27/2022 04/27/2022 Active Start: 02-11-2022 End: 07-20-2022 Fluconazole (Diflucan) 150 m g tablet Discontinued 150 mg PO Every 3 Days 2 0 February 11, 2022 12:00am July 20, 2022 4:03pm may repeat second dose 72 hrs after first dose if symptoms persist Start: 02-17-2021 fluconazole (D IFLUCAN) 150 MG tablet Take 1 (one) tablet (150 mg total) by mouth daily Take one tablet on day one and if needed, on day two take the 2nd tablet. . 2 tablet 1 02/17/2021 Active Start: 01-06-2021 End: 01-06-2021 fluconazole (DIFLUCAN) 150 M G tablet Indications: Vaginal itching Take 1 (one) tablet (150 mg total) by mouth once Repeat dose in 3 days if you continue to have symptoms for 1 dose . 2 tablet 0 01/06/2021 01/06/2021 Active Start: 09-27-2020 End: 09-27-2020 take 1 tablet by mouth once fluconazole (DIFLUCAN) 150 MG tablet Take 1 (one) tablet (150 mg total) by mouth once for 1 dose . 2 tablet 0 09/27/2020 09/27/2020 Active Start: 07-08-2020 fluconazole (D IFLUCAN) 150 MG tablet TAKE 1 TABLET BY MOUTH for 1 dose, repeat in 3 days if symptoms persist. 0 07/08/2020 Active End: 05-06-2020 fluconazole (DIFLUCAN) 150 M G tablet Take 150 mg by mouth once 1 pill by mouth every 4 days . 0 05/06/2020 Discontinued (Therapy completed) Comment on above: Take 1 tablet by tamra one time only for 1 dose. FLUoxetine 20 mg oral capsule (20 sources) Serotonin Reuptake Inhibitor Start: 01-30-2023 take 1 capsule by mouth once daily Fluoxetine 20 mg capsule Active 0 .ROUTE .COMPLEX 30 0 January 30, 2023 12:16pm TAKE 1 CAPSULE BY MOUTH DAILY Start: 01-11-2023 End: 01-30-2023 take 1 tablet by mouth once daily Fluoxetine 20 mg tablet Discontinued 20 mg PO DAILY 90 January 11, 2023 3:03pm January 30, 2023 12:17pm Start: 07-20-2022 End: 01-11-2023 take 1 tablet by mouth once daily Fluoxetine 10 mg tablet Discontinued 10 mg PO DAILY 90 October 17, 2022 4:37pm January 11, 2023 3:03pm hydrOXYzine pamoate 25 mg oral capsule (7 sources) Antihistamine Start: 12-14-2020 End: 12-14-2021 take 1 capsule by mouth twice daily as needed for anxiety hydrOXYzine (VISTARIL) 25 MG capsule Indications: Situational anxiety Take 1 (one) capsule (25 mg total) by mouth 2 (two) times a day as needed for anxiety . 60 capsule 11 12/14/2020 12/14/2021 Active ketorolac tromethamine 10 mg oral tablet (2 sources) Nonsteroidal Anti-inflammatory Drug, Cyclooxygenase Inhibitor Start: 08-04-2024 take 1 tablet by mouth every eight hours Ketorolac 10 mg tablet Active 10 mg PO Q8H 15 0 August 04, 2024 12:00am maximum total duration of 5 days from all oral, intranasal, or parenteral formulations Do not take any other NSAIDS while on this medication 24 hr metFORMIN hydrochloride 500 mg extended release oral tablet (17 sources) Biguanide Start: 02-13-2024 End: 08-11-2025 take 1 tablet by mouth twice daily metFORMIN ER (GLUCOPHAGE XR) 500 mg 24 hr tablet Indications: History of gestational diabetes , History of obesity Take 1 tablet by mouth two times a day. Patient should start on August 11, 2024. 180 tablet 3 08/11/2024 08/11/2025 Active Start: 12-26-2023 End: 03-25-2024 take 1 tablet by mouth twice daily at mealtime metFORMIN (GLUCOPHAGE) 500 mg tablet Indications: Osteoarthritis of left knee, unspecified osteoarthritis type , Stress incontinence , History of gestational diabetes , History of obesity in adulthood Take 1 tablet by mouth two times a day with meals. 180 tablet 12/26/2023 02/13/2024 Discontinued MOUNJARO 15 mg/0.5 mL pen injector (2 sources) Start: 12-12-2024 inject 15 mg by subcutaneous injection every week MOUNJARO 15 mg/0.5 mL pen injector Inject 15 mg subcutaneously one time a week. 12/12/2024 Active Multivitamin With Minerals (Hair,Skin And Nails) tablet (11 sources) Start: 08-04-2021 take 1 tablet by mouth once daily Multivitamin With Minerals (Hair,Skin And Nails) tablet Active 1 TABLET PO DAILY August 04, 2021 1:52pm Start: 08-04-2021 End: 10-17-2022 Multivitamin With Minerals (Hair,Skin And Nails) tablet Discontinued 1 {tbl} PO DAILY August 04, 2021 1:00am October 17, 2022 3:28pm Start: 08-04-2021 End: 10-17-2022 take 1 tablet by mouth once daily Multivitamin With Minerals (Hair,Skin And Nails) tablet Discontinued 1 TABLET PO DAILY August 04, 2021 1:00am October 17, 2022 3:28pm Start: 08-04-2021 take 1 tablet by tamra th once daily Multivitamin With Minerals (Hair,Skin And Nails) tablet Active 1 TABLET PO DAILY August 04, 2021 1:00am ondansetron 4 mg disintegrating oral tablet (2 sources) Serotonin-3 Receptor Antagonist Start: 10-05-2020 take 1 tablet by mouth every four hours as needed ondansetron (ZOFRAN-ODT) 4 MG disintegrating tablet Dissolve 1 (one) tablet (4 mg total) on top of tongue every 4 (four) hours as needed for nausea . 20 tablet 0 10/05/2020 Active OTC PRODUCT (4 sources) OTC PRODUCT Multivitamin Active End: 09-25-2024 OTC PRODUCT DIM 09/25/2024 D iscontinued OTC PRODUCT DIM Active phentermine hydrochloride 37.5 mg oral tablet (20 sources) Sympathomimetic Amine Anorectic Start: 02-13-2024 End: 04-04-2025 take 1 tablet by mouth once daily before breakfast Phentermine HCl 37.5 mg tablet Indications: Osteoarthritis of left knee, unspecified osteoarthritis type , Binge-eating disorder, in full remission, mild , History of obesity Take 1 tablet by mouth daily before breakfast for 90 days. Patient should start on January 04, 2025. 90 tablet 01/04/2025 04/04/2025 Active Start: 12-26-2023 End: 02-09-2024 take 1 tablet by mouth once daily before breakfast Phentermine HCl 37.5 mg tablet Indications: Osteoarthritis of left knee, unspecified osteoarthritis type , Stress incontinence , History of obesity in adulthood Take 1 tablet by mouth daily before breakfast for 45 days. 45 tablet 12/26/2023 02/09/2024 Active Start: 05-11-2020 End: 09-05-2020 take 1 tablet by mouth once daily in the morning phentermine (Adipex-P) 37.5 mg tablet Indications: Obesity (BMI 30-39.9) Take 1 (one) tablet (37.5 mg total) by mouth every morning (Days supply per fill: 30) . 30 tablet 0 07/07/2020 08/06/2020 Active Start: 05-06-2020 End: 08-04-2020 take 1 capsule by mouth once daily in the morning phentermine (Adipex-P) 37.5 MG capsule Indications: Obesity (BMI 30-39.9) Take 1 (one) capsule (37.5 mg total) by mouth every morning (Days supply per fill: 30) . 30 capsule 2 05/06/2020 08/04/2020 Active predniSONE 10 mg oral tablet (7 sources) Start: 02-16-2021 End: 02-21-2021 take 2 tablets by mouth once daily predniSONE (DELTASONE) 10 MG tablet Take 2 (two) tablets (20 mg total) by mouth daily for 5 days . 10 tablet 0 02/16/2021 02/21/2021 Active Start: 11-19-2019 End: 10-02-2023 take 4 tablets by mouth once daily, then take 3 tablets by mouth once daily, then take 2 tablets by mouth once daily, then take 1 tablet by mouth once daily predniSONE (DELTASONE) 10 mg tablet Take 4 tabs po every day x 3 days, then 3 tabs po every day x 3 days, then 2 tabs po every day x 3 days, then 1 tab po every day x 3 days 30 tablet 0 11/19/2019 10/02/2023 Discontinued Comment on above: Take 4 tabs po every day x 3 days, then 3 tabs po every day x 3 days, then 2 tabs po every day x 3 days, then 1 tab po every day x 3 days Tirzepatide (Weight Loss) (2 sources) Start: 06-10-2024 Tirzepatide (Weight Loss) (Zepbound) 15 mg/0.5 mL pen injector Active 15 mg SC EVERY WEEK June 10, 2024 1:00am topiramate 25 mg oral tablet (18 sources) Start: 12-26-2023 End: 03-24-2025 take 1 tablet by mouth twice daily topiramate (TOPAMAX) 25 mg tablet Indications: Osteoarthritis of left knee, unspecified osteoarthritis type , Stress incontinence , Binge-eating disorder, in full remission, mild , History of obesity Take 1 tablet by mouth two times a day. 180 tablet 1 09/25/2024 03/24/2025 Active Start: 11-21-2023 End: 12-26-2023 take 1 tablet by mouth once daily topiramate (TOPAMAX) 25 mg tablet Take 25 mg by mouth once daily. 0 11/21/2023 12/26/2023 Discontinued traZODone hydrochloride 50 mg oral tablet (19 sources) Serotonin Reuptake Inhibitor Start: 05-20-2024 take 1 tablet by mouth at bedtime Trazodone 50 mg tablet Active 50 mg PO AT BEDTIME May 20, 2024 1:00am Start: 09-11-2023 take 2 tablets by mo uth once daily at bedtime, then take 2 tablets by mouth once daily traZODone (DESYREL) 50 mg tablet Take 100 mg by mouth daily at bedtime. 100 mg daily 09/11/2023 Active Start: 09-11-2023 take 1 tablet by tamra th once daily at bedtime traZODone (DESYREL) 50 mg tablet Take 50 mg by mouth daily at bedtime. 09/11/2023 Active Completed/Discontinued Medications Medication Drug Class(es) Dates Sig (Normalized) Sig (Original) acetaminophen 325 mg / oxyCODONE hydrochloride 5 mg oral tablet (12 sources) Opioid Agonist Start: 03-19-2023 End: 03-26-2023 take 7-10 tablets by mouth three times daily as needed for pain Oxycodone-Acetamino phen (Percocet) 5-325 mg tablet Discontinued 1 {tbl} PO THREE TIMES A DAY as needed for pain (scale score 7-10) 21 7 0 March 19, 2023 March 25, 2023 12:00am March 26, 2023 12:04am Puncture wound of left foot Puncture wound without foreign body, left foot, initial encounter 21 tabs (twenty-one) Start: 02-11-2022 End: 04-19-2022 Oxycodone-Acetaminophen (Per cocet) 5-325 mg tablet Discontinued 1 {tbl} PO EVERY 6 HOURS as needed for pain 10 3 0 February 11, 2022 April 19, 2022 3:30pm Fracture of phalanx of left great toe benzonatate 200 mg oral capsule (3 sources) Non-narcotic Antitussive Start: 06-04-2023 End: 11-08-2023 take 1 capsule by mouth three times daily as needed for cough Benzonatate 200 mg capsule Discontinued 200 mg PO THREE TIMES A DAY as needed for cough 14 0 June 04, 2023 1:00am November 08, 2023 12:49pm biotin 1 mg oral capsule (7 sources) Start: 07-20-2022 End: 03-07-2024 take 1 capsule by mouth once daily Biotin 1 mg capsule Discontinued 1 mg PO DAILY July 20, 2022 1:00am March 07, 2024 9:04am 24 hr buPROPion hydrochloride 150 mg extended release oral tablet (20 sources) Aminoketone Start: 07-16-2020 End: 10-02-2023 take 1 tablet by mouth once daily buPROPion XL (WELLBUTRIN XL) 150 mg 24 hr tablet Take 150 mg by mouth once daily. 0 07/17/2020 10/02/2023 Discontinued Comment on above: Take 150 mg by mouth once daily. 12 hr buPROPion hydrochloride 90 mg / naltrexone hydrochloride 8 mg extended release oral tablet (1 source) Opioid Antagonist, Aminoketone Start: 12-01-2020 End: 12-01-2020 take 1 tablet by mouth twice daily naltrexone-bupropi on (Contrave) 8-90 mg TbER Take 1 (one) tablet by mouth 2 (two) times a day . 60 tablet 0 12/01/2020 12/01/2020 Discontinued (Error) cefdinir 300 mg oral capsule (4 sources) Cephalosporin Antibacterial Start: 03-23-2023 End: 03-07-2024 take 1 capsule by mouth twice daily Cefdinir 300 mg capsule Discontinued 300 mg PO TWICE A DAY 42 21 1 March 23, 2023 12:00am March 07, 2024 9:04am cephalexin 500 mg oral capsule (9 sources) Cephalosporin Antibacterial Start: 02-11-2022 End: 07-20-2022 take 1 capsule by mouth every six hours Cephalexin 500 mg capsule Discontinued 500 mg PO EVERY 6 HOURS 40 0 February 11, 2022 12:00am July 20, 2022 4:02pm Start: 11-22-2020 End: 11-29-2020 take 1 capsule by mouth four times daily cephALEXin (KEFLEX) 500 MG capsule Indications: Breast erythema Take 1 (one) capsule (500 mg total) by mouth 4 (four) times a day for 7 days . 28 capsule 0 11/22/2020 11/29/2020 Active ciprofloxacin 3 mg/ml / dexamethasone 1 mg/ml otic suspension (9 sources) Corticosteroid, Quinolone Antimicrobial Start: 06-07-2020 End: 08-10-2020 ciprofloxacin-dexamethasone (CIPRODEX) otic suspension Administer 4 (four) drops to the right ear 2 (two) times a day . 7.5 mL 0 06/07/2020 08/10/2020 Discontinued citrull/argin/pine xt/vishnu hip (RISTELA ORAL) (11 sources) End: 07-03-2024 citrull/argin/pine xt/vishnu h ip (RISTELA ORAL) Take by mouth once daily. 07/03/2024 Discontinued citrull/argin/pi ne xt/vishnu hip (RISTELA ORAL) Take by mouth once daily. Active citrull/argin/pi ne xt/vishnu hip (RISTELA ORAL) Take by mouth once daily. 0 Active diclofenac sodium 20 mg/ml topical solution (7 sources) Nonsteroidal Anti-inflammatory Drug Start: 07-21-2022 End: 10-20-2022 Diclofenac Sodium (Pennsaid) 20 mg/gram /actuation(2 %) solution in metered-dose pump Discontinued 2 NMA TOPICAL TWICE A DAY 112 0 July 21, 2022 1:00am October 20, 2022 1:20pm Left knee pain Pain in left knee Pain Apply to a single affected knee Start: 07-21-2022 End: 10-20-2022 Diclofenac Sodium (Pennsaid) 20 mg/gram /actuation(2 %) solution in metered-dose pump Discontinued 2 PUMP TOPICAL TWICE A DAY 112 July 21, 2022 1:00am October 20, 2022 1:20pm Apply to a single affected knee docusate sodium 100 mg oral capsule (11 sources) Start: 05-14-2017 End: 09-28-2021 take 1 capsule by mouth twice daily as needed for constipation Docusate Sodium 100 MG capsule Discontinued 100 mg PO TWICE DAILY NEEDED as needed for Constipation 60 1 May 14, 2017 1:00am September 28, 2021 12:50pm doxycycline monohydrate 100 mg oral capsule (5 sources) Tetracyclin e-class Drug Start: 03-18-2023 End: 03-26-2023 take 1 capsule by mouth twice daily Doxycycline Monohydrate 100 mg capsule Discontinued 100 mg PO TWICE A DAY 14 0 March 18, 2023 12:00am March 26, 2023 10:12am gadoterate meglumine (DOTAREM) injection 17 mL (1 source) Start: 08-24-2020 End: 08-24-2020 gadoterate meglumine (DOTAREM) injection 17 mL Lacto No.32-Cmonss-Lfk-La rch (Women's Probiotic) 25B cell-25B cell-50 mg capsule (10 sources) Start: 11-29-2021 End: 05-20-2024 Lacto No.74-Elniqe-Pgu-La rch (Women's Probiotic) 25B cell-25B cell-50 mg capsule Discontinued NMA PO November 29, 2021 12:00am May 20, 2024 11:29am Start: 11-29-2021 Lacto No.76-Bi pyxp-Hoc-Lxsry (Women's Probiotic) 25B cell-25B cell-50 mg capsule Active CAP PO November 29, 2021 12:00am Lactobacillus acidophilus (13 sources) End: 07-03-2024 Lactobacillus acidophilus (P ROBIOTIC ORAL) Take by mouth. Vaginal health 07/03/2024 Discontinued Lactobacillus ac idophilus (PROBIOTIC ORAL) Take by mouth. Vaginal health Active Lactobacillus ac idophilus (PROBIOTIC ORAL) Take by mouth. Vaginal health 0 Active Lidocaine (1 source) Antiarrhythmic, Amide Local Anesthetic Start: 08-27-2020 End: 08-27-2020 lidocaine 10 mg/mL (1 %) injection 5 mL meloxicam 15 mg oral tablet (20 sources) Nonsteroidal Anti-inflammatory Drug Start: 07-28-2021 End: 03-07-2024 take 1 tablet by mouth once daily as needed for pain Meloxicam 15 mg tablet Discontinued 15 mg PO DAILY as needed for Right knee pain 30 0 February 13, 2023 11:12am March 07, 2024 9:03am Right knee pain Pain in right knee Do not take in conjunction with other NSAIDs. Tylenol is okay. methylPREDNISolone 4 mg oral tablet (3 sources) Corticosteroid Start: 06-04-2023 End: 03-07-2024 take 1 tablet by mouth once Methylprednisolone (Medrol (Brennan)) 4 mg tablets,dose pack Discontinued 0 PO per package directions 21 0 June 04, 2023 1:00am March 07, 2024 9:03am PO PER PKG DIR nitrofurantoin, macrocrystals 25 mg / nitrofurantoin, monohydrate 75 mg oral capsule (2 sources) Nitrofuran Antibacterial Start: 11-08-2023 End: 11-15-2023 take 1 capsule by mouth every twelve hours at mealtime Nitrofurantoin Monohyd/M-Cryst 100 mg capsule Discontinued 1 NMA PO Q12H 14 7 0 November 08, 2023 12:00am November 14, 2023 12:00am November 15, 2023 12:06am administer with a meal/food; swallow whole; do not open, crush, dissolve , or chew oxyCODONE hydrochloride 5 mg oral tablet (13 sources) Opioid Agonist Start: 06-10-2024 End: 08-07-2024 take 5-10 mg by mouth every four hours as needed for pain Oxycodone 5 mg tablet Discontinued 5 - 10 mg PO Q4H as needed for pain 10 3 0 June 10, 2024 August 07, 2024 3:41pm Other acute postprocedural pain Other acute postprocedural pain Start: 05-14-2017 End: 09-28-2021 take 5-10 mg by mouth every six hours as needed for pain Oxycodone 5 MG tablet Discontinued 5 - 10 mg PO EVERY 6 HOURS NEEDED as needed for Severe Pain (6-10/10) 20 0 May 14, 2017 1:00am September 28, 2021 12:49pm SEMAGLUTIDE WITH b12 (5 sources) Start: 10-17-2022 End: 02-23-2023 SEMAGLUTIDE WITH b12 Discont inued SC .WEEKLY October 17, 2022 12:00am February 23, 2023 1:07pm Start: 10-17-2022 SEMAGLUTIDE WI TH b12 Active SC .WEEKLY October 17, 2022 12:00am SEMAGLUTIDE WITH b12 20 unit s auto-injector (2 sources) Start: 10-17-2022 End: 02-23-2023 SEMAGLUTIDE WITH b12 20 unit s auto-injector Discontinued SC .WEEKLY October 17, 2022 12:00am February 23, 2023 1:07pm Tirzepatide (Mounjaro) 10 mg /0.5 mL pen injector (5 sources) Start: 02-23-2023 End: 03-07-2024 Tirzepatide (Mounjaro) 10 mg/0.5 mL pen injector Discontinued 5 mg SC February 23, 2023 12:00am March 07, 2024 9:04am Start: 02-23-2023 Tirzepatide (M ounjaro) 10 mg/0.5 mL pen injector Active 5 MG SC February 23, 2023 12:00am tirzepatide (MOUNJARO) 15 mg/0.5 mL pen injector (7 sources) End: 02-13-2024 inject 15 mg by subcutaneous injection every week tirzepatide (MOUNJARO) 15 mg/0.5 mL pen injector Inject 15 mg subcutaneously one time a week. 02/13/2024 Discontinued (Other) inject 15 mg by subc utaneous injection every week tirzepatide (MOUNJARO) 15 mg/0.5 mL pen injector Inject 15 mg subcutaneously one time a week. Active inject 15 mg by subc utaneous injection every week tirzepatide (MOUNJARO) 15 mg/0.5 mL pen injector Inject 15 mg subcutaneously one time a week. 0 Active Tirzepatide (Mounjaro) 5 mg/ 0.5 mL pen injector (7 sources) Start: 07-20-2022 End: 08-29-2022 Tirzepatide (Mounjaro) 5 mg/ 0.5 mL pen injector Discontinued 5 mg SC EVERY WEEK 2 2 July 20, 2022 1:00am August 29, 2022 1:59pm Start: 07-20-2022 End: 08-29-2022 Tirzepatide (Mounjaro) 5 mg/ 0.5 mL pen injector Discontinued 5 mg SC EVERY WEEK 2 July 20, 2022 1:00am August 29, 2022 1:59pm Start: 07-20-2022 End: 08-29-2022 Tirzepatide (Mounjaro) 5 mg/ 0.5 mL pen injector Discontinued 5 MG SC EVERY WEEK 2 July 20, 2022 1:00am August 29, 2022 1:59pm Tirzepatide (Mounjaro) 7.5 mg/0.5 mL pen injector (7 sources) Start: 08-29-2022 End: 10-17-2022 Tirzepatide (Mounjaro) 7.5 mg/0.5 mL pen injector Discontinued 7.5 mg SC EVERY WEEK 2 2 August 29, 2022 1:59pm October 17, 2022 3:32pm Start: 08-29-2022 End: 10-17-2022 Tirzepatide (Mounjaro) 7.5 m g/0.5 mL pen injector Discontinued 7.5 mg SC EVERY WEEK 2 August 29, 2022 1:59pm October 17, 2022 3:32pm Start: 08-29-2022 End: 10-17-2022 Tirzepatide (Mounjaro) 7.5 m g/0.5 mL pen injector Discontinued 7.5 MG SC EVERY WEEK 2 August 29, 2022 1:59pm October 17, 2022 3:32pm traMADol hydrochloride 50 mg oral tablet (2 sources) Opioid Agonist Start: 08-07-2024 End: 09-26-2024 take 1 tablet by mouth every eight hours as needed for pain Tramadol 50 mg tablet Discontinued 50 mg PO Q8H as needed for pain 15 0 August 07, 2024 12:00am September 26, 2024 8:52am No driving, operating machinery or safety sensitive work within 8 hours of dosing. Do not combine with muscle relaxers or other pain medications. Vitamin B Complex (B Complex-Vitamin B12) tablet (7 sources) Start: 07-20-2022 End: 10-17-2022 Vitamin B Complex (B Complex-Vitamin B12) tablet Discontinued 1 {tbl} PO DAILY July 20, 2022 1:00am October 17, 2022 3:32pm Start: 07-20-2022 End: 10-17-2022 take 1 tablet by mouth once daily Vitamin B Complex (B Complex-Vitamin B12) tablet Discontinued 1 TABLET PO DAILY July 20, 2022 1:00am October 17, 2022 3:32pm vitamin b12 1 mg/ml injectable solution (5 sources) Vitamin B12 Start: 02-08-2024 End: 07-03-2024 inject 1000 mg by intramuscular injection every month cyanocobalamin 1,000 mcg/mL inject 1000mg INTRAMUSCULARLY ONCE monthly 02/08/2024 07/03/2024 Discontinued ZEPBOUND 15 mg/0.5 mL pen injector (2 sources) Start: 02-08-2024 End: 04-09-2024 ZEPBOUND 15 mg/0.5 mL pen injector inject 15 mg weekly 02/08/2024 04/09/2024 Discontinued (Other) Start: 02-08-2024 ZEPBOUND 15 mg /0.5 mL pen injector inject 15 mg weekly 02/08/2024 Active Problems Active Problems Problem Classification Problem Date Documented Date Episodic/Chronic Administrative/social admission (4 sources) Family tension; Translations: [Stress at home] Episodic Anxiety disorders (20 sources) Anxiety; Translations: [Other specified anxiety disorders] Onset: 11-23-2023 Chronic Cardiac dysrhythmias (2 sources) Palpitations; Translations: [Palpitations] Episodic E Codes: Place of occurrence (5 sources) Accident while engaged in household activity; Translations: [Unspecified place in unspecified non-institutional (private) residence as the place of occurrence of the external cause] 03-20-2023 Episodic Fracture of lower limb (8 sources) Fracture of great toe ; Translations: [Displaced unspecified fracture of left great toe, initial encounter for closed fracture] 02-19-2022 Episodic Genitourinary symptoms and ill-defined conditions (20 sources) Genuine stress incontinence; Translations: [Stress incontinence (female) (male)] Onset: 11-23-2023 11-23-2023 Chronic Immunizations and screening for infectious disease (1 source) Contact with or exposure to other viral diseases; Translations: [Occupational exposure to COVID-19 virus] Episodic Malaise and fatigue (1 source) Malaise and fatigue; Translations: [Other malaise] 10-02-2023 Episodic Miscellaneous mental health disorders (20 sources) Binge eating disorder; Translations: [Binge eating disorder] Onset: 12-26-2023 12-26-2023 Chronic Noninfectious gastroenteritis (13 sources) Gastroenteritis; Translations: [Noninfective gastroenteritis and colitis, unspecified] Episodic Nonmalignant breast conditions (1 source) Heterogeneously dense breast composition; Translations: [Heterogeneously dense tissue of both breasts on mammography] 11-23-2023 Episodic Nonmalignant breast conditions (3 sources) Lump in upper inner quadrant of right breast; Translations: [Mass of upper inner quadrant of right breast] Open wounds of extremities (6 sources) Puncture wound of left foot; Translations: [Puncture wound without foreign body, left foot, initial encounter] 03-18-2023 Episodic Comment on above: dorsum left foot in web space between big toe and second toe Osteoarthritis (20 sources) Unilateral primary osteoarthritis, left knee; Translations: [Osteoarthrosis, unspecified whether generalized or localized, lower leg] Onset: 12-25-2023 Chronic Other aftercare (1 source) Long-term current use of drug therapy; Translations: [Other penitentiary (current) drug therapy] 12-19-2024 Episodic Other aftercare (1 source) Other penitentiary (current) drug therapy; Translations: [Encounter for long-term (current) use of medications] Onset: 12-19-2024 Episodic Other bone disease and musculoskeletal deformities (20 sources) Segmental and somatic dysfunction; Translations: [Segmental and somatic dysfunction of lumbar region] 08-08-2021 Episodic Other bone disease and musculoskeletal deformities (2 sources) Segmental and somatic dysfunction of lumbar region; Translations: [Nonallopathic lesions, lumbar region] Episodic Other bone disease and musculoskeletal deformities (2 sources) Segmental and somatic dysfunction of pelvic region; Translations: [Nonallopathic lesions, pelvic region] Episodic Other bone disease and musculoskeletal deformities (2 sources) Segmental and somatic dysfunction of thoracic region; Translations: [Nonallopathic lesions, thoracic region] Episodic Other female genital disorders (2 sources) Pruritus of vagina; Translations: [Other specified noninflammatory disorders of vagina] Episodic Other female genital disorders (1 source) Vaginal discharge; Translations: [Other specified noninflammatory disorders of vagina] Episodic Other female genital disorders (1 source) Vaginal dryness; Translations: [Other specified noninflammatory disorders of vagina] 10-02-2023 Episodic Other inflammatory condition of skin (3 sources) Pruritus of genital organs; Translations: [Pruritus vulvae] Episodic Other nervous system disorders (2 sources) Carpal tunnel syndrome; Translations: [Carpal tunnel syndrome, bilateral upper limbs] 03-07-2024 Chronic Other nervous system disorders (2 sources) Carpal tunnel syndrome of left wrist; Translations: [Carpal tunnel syndrome, left upper limb] 09-26-2024 Chronic Other nervous system disorders (2 sources) Carpal tunnel syndrome, bilateral upper limbs; Translations: [Carpal tunnel syndrome, bilateral upper limbs] Onset: 04-07-2024 Chronic Other nervous system disorders (2 sources) Acute postoperative pain; Translations: [Other acute postprocedural pain] 06-10-2024 Episodic Other non-traumatic joint disorders (18 sources) Pain in left knee; Translations: [Left knee pain] Episodic Other nutritional; endocrine; and metabolic disorders (20 sources) Body mass index 30+ - obesity; Translations: [Obesity, unspecified] Onset: 05-06-2020 05-06-2020 Chronic Other nutritional; endocrine; and metabolic disorders (7 sources) Obese class I; Translations: [Obesity, unspecified] 07-21-2022 Chronic Other nutritional; endocrine; and metabolic disorders (1 source) Obesity, unspecified; Translations: [Obesity, unspecified] 10-17-2022 Chronic Other nutritional; endocrine; and metabolic disorders (1 source) History of adult obesity; Translations: [Personal history of other endocrine, nutritional and metabolic disease] 12-25-2023 Episodic Other upper respiratory infections (4 sources) Pharyngitis; Translations: [Acute pharyngitis, unspecified] 12-12-2023 Episodic Residual codes; unclassified (1 source) Reduced libido; Translations: [Decreased libido] 10-02-2023 Episodic Screening and history of mental health and substance abuse codes (5 sources) Ex-smoker; Translations: [Personal history of nicotine dependence] 03-20-2023 Episodic Spondylosis; intervertebral disc disorders; other back problems (13 sources) Backache; Translations: [Dorsalgia, unspecified] Episodic Sprains and strains (10 sources) Hamstring injury; Translations: [Strain of muscle, fascia and tendon of the posterior muscle group at thigh level, right thigh, initial encounter] 08-07-2024 Episodic Substance-related disorders (2 sources) Nicotine dependence; Translations: [Cigarette nicotine dependence without complication] Chronic Superficial injury; contusion (8 sources) Abrasion, left great toe, initial encounter; Translations: [Abrasion of left great toe] 02-19-2022 Episodic Unclassified (20 sources) Patient encounter status; Translations: [Wellness examination] Onset: 01-11-2018 01-11-2018 Unclassified (1 source) Binge-eating disorder, in full remission, mild; Translations: [Binge-eating disorder, in full remission, mild] Onset: 12-26-2023 Past or Other Problems Problem Classification Problem Date Documented Da te Episodic/Chronic Diabetes or abnormal glucose tolerance complicating ; childbirth; or the puerperium (20 sources) History of gestational diabetes mellitus; Translations: [Personal history of gestational diabetes] Onset: 12-26-2023 12-26-2023 Episodic Mycoses (20 sources) Candidiasis of vagina; Translations: [Candidiasis of vulva and vagina] Onset: 04-01-2018 04-01-2018 Episodic Neoplasms of unspecified nature or uncertain behavior (19 sources) Neoplasm of uncertain behavior of upper inner quadrant of female breast; Translations: [Neoplasm of uncertain behavior of right breast] Onset: 09-15-2020 Resolved: 09-21-2020 Episodic Other and unspecified benign neoplasm (18 sources) Fibroadenoma of breast; Translations: [Benign neoplasm of right breast] Onset: 09-15-2020 Episodic Other and unspecified benign neoplasm (8 sources) Benign neoplasm of right breast; Translations: [Benign neoplasm of breast] Onset: 09-15-2020 11-23-2023 Episodic Other connective tissue disease (20 sources) Lateral epicondylitis; Translations: [Lateral epicondylitis, unspecified elbow] Onset: 05-06-2020 05-06-2020 Episodic Other connective tissue disease (1 source) Pain in right leg; Translations: [Pain in right leg] Onset: 08-04-2024 Episodic Other injuries and conditions due to external causes (1 source) Unspecified injury of muscle, fascia and tendon of the posterior muscle group at thigh level, right thigh, initial encounter; Translations: [Unspecified injury of muscle, fascia and tendon of the posterior muscle group at thigh level, right thigh, initial encounter] Onset: 08-16-2024 Episodic Other non-traumatic joint disorders (20 sources) Shoulder pain; Translations: [Pain in right shoulder] Onset: 06-10-2015 01-11-2018 Episodic Other non-traumatic joint disorders (17 sources) Pain in right shoulder; Translations: [Pain in joint, shoulder region] Onset: 06-10-2015 Resolved: 09-18-2018 05-23-2021 Episodic Other nutritional; endocrine; and metabolic disorders (20 sources) H/O: obesity; Translations: [Personal history of other endocrine, nutritional and metabolic disease] Onset: 11-23-2023 11-23-2023 Episodic Other nutritional; endocrine; and metabolic disorders (2 sources) Personal history of other endocrine, nutritional and metabolic disease; Translations: [History of obesity] Onset: 11-23-2023 Episodic Other screening for suspected conditions (not mental disorders or infectious disease) (20 sources) Mammography abnormal; Translations: [Magnetic resonance imaging of breast abnormal] Onset: 12-26-2023 11-23-2023 Episodic Unclassified (1 source) Requires vaccination Unclassified (1 source) Chronic right shoulder pain Results Test Name Value Interpretation Reference Range Facility [facility] 12-19-2024 CNOV Office Visit (OBGYWM ) TOMMYDO Adalberto ([id number]) 1980 F Date Time Provider Department 12/19/24 7:00 AM ROBYN WARNER During your visit today, we recorded the following information about you: Pulse Blood pressure Weight 92/minute 108/76 73.5 kg Robyn Warner APRN.[facility] 12/19/2024 7:45 AM Addendum -- Metformin can [...] protein AND 2g carb Two Good Lowfat Estonian Yogurt, Lower Sugar - 12g protein AND [...] oz is 28 gm protein Beef, Chicken, [place], Pork, Eli 1 oz 7g Fish, Tuna [...] Vanilla and chocolate (not a meal replacement) ___ Protein AND carbs Beef/[place] Jerky 1 oz dried 10-15g protein - [...] 8 oz -13g protein AND 6g carb Estonian yogurt Full Fat Estonian Yogurt 1 cup - 20.4g protein AND 9.1g carb 2% Estonian Yogurt 1 cup - 22.7g protein AND 9.1g carb 0% (fat-free) Estonian Yogurt - 1 cup 24g protein AND 9.3g carb Aldi Protein Estonian yogurt single svg - 13/g15g protein AND 7g carb Chobani Zero Sugar single svg: - 12g protein AND 5g carb Dannon Estonian Light + Fit 1 single svg - 12g protein AND 9g carb Oikos Pro single svg - 20g protein AND 8g carb Oikos Triple Zero Estonian Nonfat Yogurt 1 single svg - 15g protein AND 7g carb :ratio, KETO Friendly Dairy Snack 1 single svg - 15g protein AND 2g carb :ratio Protein 1 single svg - 25g protein AND 8g carb Two Good Lowfat Estonian Yogurt, [place], Lower Sugar - 12g protein AND 2g carb Yoplait Protein 1 single svg 15g protein AND 5g carb Dairy Free - [place] unsweetened Estonian almond/soy 15g protein AND 3g carb Dairy Free - True Goodness by [employer] coconut-based yogurt alternative 1 g protein 1 g net carb 180 phil Drinkable yogurts: Chobani drinkable 15g, 20g and 30g protein AND 18 carb (too (more content not included)... Normal [facility] Orthopedic Visit Reporton Orthopedic Visit Report [facility] [address] [place] [address] OFFICE VISIT Date of Service: 09/26/24 MR#: [id number] Acct: [id number] Name: DO OLSON Rep #: [id number] : 1980 Provider: Dr. Eulogio Denny so, DO Age/Sex: 44/F Location: [facility] [place].LINDA Status: Signed Intake Vital Signs 09/22/24 11:14 Height 5 ft 7 in Intake Visit Reasons: LEFT WRIST Allergies amoxicillin Allergy (Verified 09/26/24 08:52) Rash Medications ???Medication ???Instructions ???Recorded ???Confirmed ???Type fexofenadine 180 mg tablet 180 mg PO DAILY PRN allergic 07/2009/26/24 History (Melinda Allergy) symptoms fluoxetine 20 mg capsule See Rx Instructions .Route 3 09/26/24 Rx .COMPLEX #30 CAPSULES amoxicillin 500 mg tablet 500 mg PO TID #30 tabs 04/01/24 Rx collagen SUPPELEMENT 1 dose PO DAILY 05/20/24 09/26/24 History metformin 500 mg tablet,extended 500 mg PO BID 05/20/24 09/26/24 Hi story release 24 hr phentermine 37.5 mg tablet 37.5 mg PO DAILY 05/20/24 09/26/24 History trazodone 50 mg tablet 50 mg PO QHS 05/20/24 09/26/24 His tory tirzepatide (weight loss) 15 15 mg subcut QWEEK 06/10/24 History mg/0.5 mL subcutaneous pen injector (Zepbound) ketorolac 10 mg tablet 10 mg PO Q8H #15 tabs 08/04/2407/22 Rx cyclobenzaprine 10 mg tablet 10 mg PO TID PRN muscle spasm #30 08/07/24 09/26/24 Rx tabs PFSH Medical History Former smoker Wears glasses Accident in home Puncture wound of foot, left Obesity (BMI 30.0-34.9) Anxiety Surgical History History of breast augmentation History of wisdom tooth extraction History of hysterectomy H/O lumpectomy Family History Other Cervical cancer Heart disease Melanoma Mental disorder Myocardial infarction Ovarian cancer Social History (Updated 09/26/24 @ 08:55 by Leatha Cole) alcohol intake: current alcohol intake frequency: holidays/special occasions only substance use type: does not use HPI LEFT WRIST Details: This documentation accurately reflects the service provided and the decisions made by me, Dr. Eulogio Mello, DO 09/26/24 0743. Part of today???s visit was documented by Kenzie STEWART, acting as scribe. DO OLSON is a 44 year old F here today for continued left carpal tunnel symptoms. To recall patient had Right open carpal tunnel release left carpal tunnel injection DOS 06/10/2024. She did have significant pain after the injection last time however after that her symptoms were doing very well until recently and now her symptoms are returned and significant .she would like an injection today in the eft wrist for the carpal tunnel. She does wish to have the left carpal tunnel released but she would like to wait until the fall. Her last carpal tunnel injection gave her relief up until 3-4 weeks ago. She has tried NSAIDs, bracing, and Voltaren gel with minimal relief. Ortho Exam General General: Yes no acute distress Neurologic: Yes alert and Yes oriented x3 Psychologic: Yes reasonable and appropriate Left Wrist/Hand Skin/Wound: Yes nail intact, No capillary refill normal and No erythema Left Wrist: Yes Tinel's and Yes Phalen's; No Thenar Atrophy and No Hypothenar Atrophy Sensation: Radial: I, Ulnar: I and Median: I WRIST: 75 extension, passive 82 49 flexion full supination and pronation 5/5 abbduction strngth She is not tender and there is no bogginess of her MCPs There is no swelling that I can appreciate in her fingers or hand Office Procedures Ortho Injections Injections Yes Carpal Tunnel Injection Left Is this a patient provided medication?: No Details: Obtained consent for injection. Under sterile conditions, injected the patients left wrist carpal tunnel with .5cc bupivacaine .5cc depo medrol. The patient tolerated the injection well without any noted complication. Patient should call our office if redness develops, pain worsens or if they have any concerns. Office Meds Depo-Medrol 40 mg/mL suspension for injection Performing Provider: Eulogio Mello DO Performing Location: [facility] Administered by: Eulogio Mello DO on 09/26/24 09:09 Dose Route Admin Location Dispensed Lot Number Expiration Date NDC Man ufacturer 20 mg intra-articular left wrist carpal tunnel 0.5 mL [id number] 12/26/25 0009 -0280-03 RUY-UPMario Supplemental Info 06/10/2024: Right open carpal tunnel release left carpal tunnel injection 03/12/2024 EMG bilateral upper extremity: 1. Electrodiagnostic findings suggestive of bilateral median mononeuropathy. This is consistent with a mild to mod (more content not included)... Normal [facility] CNOVon 09-25-2024 CNOV Office Visit (OBGYWM ) DO OLSON Adalberto ([id number]) 1980 F Date Time Provider Department 09/25/24 3:30 PM ROBYN WARNER During your visit today, we recorded the following information about you: Pulse Blood pressure Weight 65/minute 116/76 73.5 kg Robyn Warner APRN.CLASS A LINEMAN 09/25/2024 4:47 PM Signed Some documentation from [...] Previous Diet (initial appointment): - B - 629- - 30 gm protein shake or granola or fruit with coffee with with flavoring syrup and sweetened creamer. S - 10-1030 pretzels or apple or veg or HB eggs L - 1200 if work - Salad or 1/2 sandwich or soup or pizza/home - protein shake and fruit or veg or yogurt and granola S - none D - 9403-3346 protein and veg and small carb - potato/pasta/corn/rice No dessert S - rare - popcorn or ice cream Fluids: water Bedtime - 0963-0048 Eating Disorder binge eating Dietary changes: B [...] on August 11, 2024. 180 tablet 3 clotrimazole-betamethas one (LOTRISONE) cream Apply 1 application to affected [...] AOMs: GEN: Fatigue:yes occasionally Hx PVC - E (more content not included)... Normal [facility] Inital Evaluation (1) - PTon 08-29-2024 Inital Evaluation (1) - PT [facility] Physical Therapy [facility] [address] [place] [address] [address] [place] [id number] / REHABILITATION SERVICES INITIAL EVALUATION MR#: [id number] Acct: [id number] Name: DO OLSON Rep #: [id number] : 1980 44 From: Harrison Smith PT, ATC Referring Dr.: Dr. Daryl Peralta MD Status: REG RCR Insurance: [employer] SELF PAY INSURANCE Patient's Visit Information Visit Information Visit Information: DO OLSON is a 44 year old F referred to Physical Therapy by Dr. Daryl Peralta MD with a diagnosis of R proximal hamstring rupture 07/16/24. Date of Evaluation: 08/29/24 Physical Therapist: Harrison Smith PT, ATC Visit Plan Frequency: 1-2x /Week Duration: 6-8 weeks Plan: Follow protocol in chart. Subjective Subjective: DOS: 08/13/24. Pt reports she tore her R hamstring and had to have it repaired. Pt reports her muck boots got stuck in the mud, and when she pulled up with her leg, her hamstring ruptured. No PMHx of R hamstring pathology in the past. Pt reports she is feeling better overall, but notes she still has some pain and spasms in R hamstring. Pt reports she has numbness in her R distal glute area at this time, so it is hard for her to feel if anything is really pulling down there. Pt reports no sleep difficulty at this time as long as she takes her pain meds. 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 Pt reports she is NWBing at this time and will be for 3 weeks. Pt lives in a one story house that she has to negotiate 2 stairs to enter. Pt is able to hop up her stairs. Pt reports her R HS pain is rated at 6/10 while sitting here in the clinic. Pain R hamstring: Pain Intensity (Out of 10): 6 Pain Intensity Range: 6 Objective Objective: Neuro: B LE sensation is WNL to light touch. ROM: L knee 0-135 degrees; R knee 0-115 degrees MMT: L knee flex= 32 #F, ext= 55 #F. R knee not tested Gait: Pt ambulates with 2 crutches, NWBing. Balance/Special Test Scores Lower Extremity Functional Score: 17 Goals Goal 1:: Decrease R hamstring pain x 50% to aid with sleep Goal Time Frame: 6-8 Weeks Goal 2:: Increase R hamstring strength to 90% of L HS strength to aid with RTW Goal Time Frame: 6-8 Weeks Goal 3:: Pt will ambulate 1000 feet with no AD to aid with RTW without limitation Goal Time Frame: 6-8 Weeks Goal 4:: I with HEP Goal Time Frame: 6-8 Weeks Rehabilitation Potential Physical Therapy Diagnosis: Pt has R LE weakness, limited ROM, and pain secondary to R hamstring rupture. Rehabilitation Potential: Excellent Anticipated Interventions Patient/Client Instruction: Educate patient on: Condition and Plan of Care For the Purpose of:: To improve self management Therapeutic Exercise to Include: Strength training, Endurance training, Balance training, Flexibilty training, Gait and locomotor training, Active ROM and Dynamic Lumbar Stabilization For the Purpose of:: To decrease pain, To increase ROM and To improve muscle performance and motor function Cryotherapy (ice pack, ice massage): Yes For the Purpose of:: To decrease pain Text: Thank you for the opportunity to evaluate your patient. For Medicare and Medicare HMO plans, please review the plan of care and approve it. It will need to be FAXED BACK to us at [phone] for Medicare purposes. For Medicare only, by signing this I certify the plan of care. Please let me know if there are questions or concerns regarding this plan of care. Physician Signature: Date: 08/29/24 0721 CC: KYRA Padgett; Dr. Daryl Peralta MD [facility] Signed Normal [facility] Lower Ext/No Jt/w/oon 2024 Lower Ext/No Jt/w/o [facility] Imaging Services [address] [place] [id number] Lower Ext/No Jt/w/o MR#: [id number] Acct: [id number] Name: DO OLSON Rep #: [id number] : 1980 F 44 From: Fausto Glover PCP: KYRA Riddle Status: REG CLI Study: Lower Ext/No Jt/w/o Date of Exam: 08/07/24 Exam# [id number] Ordering Dr: Brooke Liu PROCEDURE: LOWER EXT/NO JT/W/O REASON FOR EXAM: POSSIBLE HAMSTRING RUPTURE TECHNIQUE: MRI of the right thigh without contrast. COMPARISON: Right femur study of 08/04/2024. FINDINGS Disruption and retraction of the tendon of the right biceps femoris (long head) and semitendinosis muscles is seen from the right ischium, with moderate amount of associated hematoma. No abnormal muscle signal is seen. No hip joint effusion is seen. No evidence of femoral head osteonecrosis. No abnormal osseous signal is noted. MRI/Lower Ext/No Jt/w/o IMPRESSION: Disruption and retraction of the tendon of the right biceps femoris (long head) and semitendinosis muscles is seen from the right ischium, with moderate amount of associated hematoma. Reading Location: [id number] CC: KYRA Padgett; KYRA Liu Production Posting Clerk: Signed Normal [facility] Magnetic resonance imaging r eportOrdered By: Fausto Garcia on 08-07-2024 Study report [facility] Imaging Services [address] [place] [address] Lower Ext/No Jt/w/o MR#: [id number] Acct: [id number] Name: DO OLSON Rep #: [id number] : 1980 F 44 From: Leodan Garcia MD PCP: KYRA Riddle Status: REG CLI Study:Lower Ext/No Jt/w/o Date of Exam: 08/07/24 Exam# [id number] Ordering Dr: Sophie Liu PROCEDURE: LOWER EXT/NO JT/W/O REASON FOR EXAM: POSSIBLE HAMSTRING RUPTURE TECHNIQUE: MRI of the right thigh without contrast. COMPARISON: Right femur study of 08/04/2024. FINDINGS Disruption and retraction of the tendon of the right biceps femoris (long head) and semitendinosis muscles is seen from the right ischium, with moderate amount of associated hematoma. No abnormal muscle signal is seen. No hip joint effusion is seen. No evidence of femoral head osteonecrosis. No abnormal osseous signal is noted. MRI/Lower Ext/No Jt/w/o IMPRESSION: Disruption and retraction of the tendon of the right biceps femoris (long head) and semitendinosis muscles is seen from the right ischium, with moderate amount of associated hematoma. Reading Location: [id number] CC: KYRA Padgett; KYRA Liu ~ Production Posting Clerk: Signed [facility] Orthopedic Visit Reporton Orthopedic Visit Report [facility] [address] [place] [address] [place] [address] OFFICE VISIT Date of Service: 08/07/24 MR#: [id number] Acct: [id number] Name: DO OLSON Rep #: [id number] : 1980 Provider: KYRA perdomo Age/Sex: 44/F Location: [facility].BOS[facility] Status: Signed Intake Vital Signs 06/10/24 06:13 08/07/24 15:20 Height 5 ft 7 in 5 ft 7 in Intake Visit Reasons: RIGHT LEG Chief Complaint: ST, TRUJILLO, cough, congestion Allergies amoxicillin Allergy (Verified 06/10/24 06:11) Rash [facility] Medical History Wears glasses Smoker Accident in home Puncture wound of foot, left Obesity (BMI 30.0-34.9) Anxiety Surgical History History of breast augmentation History of wisdom tooth extraction History of hysterectomy H/O lumpectomy Family History Other Cervical cancer Heart disease Melanoma Mental disorder Myocardial infarction Ovarian cancer Social History Smoking Status: Current every day smoker tobacco type: e-cigarettes alcohol intake: current alcohol intake frequency: holidays/special occasions only substance use type: does not use HPI RIGHT LEG Details: This documentation accurately reflects the service provided and the decisions made by me, KYRA Ortiz 08/07/24 1543. Part of today???s visit was documented by [ ], acting as scribe. DO OLSON is a 44 year old F here today for Phone call to patient for MRI result review. Symptoms are about the same as earlier in the week when she was here. Increased amount of muscle spasms and difficulty finding position with sitting and standing. Using crutches and minimal weightbearing at this time. Patient is taking the Toradol as prescribed with some symptom improvement, however she gets episodes of severe pain and difficulty sleeping. Symptoms are worse since lying still for MRI earlier today. ROS Const All systems reviewed are unremarkable except as noted in H and other (A O x 3, no apparent distress. No recent illness.) ENT Denies dizziness Card Denies chest pain, Denies dyspnea, Denies edema and Reports other (No palpitations) Resp Denies cough, Denies dyspnea and Reports other (No recent URI) GI Reports system reviewed and no additional complaints, except as documented, Denies nausea and Denies vomiting Musc Reports abnormal gait and Reports limited range of motion Neuro Yes abnormal gait and No dizziness Psych Reports system reviewed and no additional complaints, except as documented Raymond/Lymph Denies easy bleeding and Denies easy bruising Ortho Exam Right Hip HIP: Reports no change since exam earlier this week. Continues to have pain and swelling at the proximal to mid hamstring to the middle of the leg/thigh. Continues with light bruising and swelling. Symptoms aggravated with weightbearing, ambulation, sitting. If patient does attempt to put weight has to have leg rotated with foot facing outward to bear weight and ease symptoms. This increases spasms with doing this. Coding Level of Care Code Fátima Goldman Diagnoses Tear of right hamstring S76.311A Right hamstring injury, initial encounter S76.301A Encounter type: initial encounter Time Spent (min) 25 Assessment and Plan Assessment and Plan (1) Tear of right hamstring: Status: Acute (2) Right hamstring injury: Status: Acute Qualifiers: Encounter type: initial encounter Qualified Code(s): S76.301A - Unspecified injury of muscle, fascia and tendon of the posterior muscle group at thigh level, right thigh, initial encounter Plan: We discussed symptom control. Continue oral ketorolac to take 3 times daily, avoid other NSAIDs while on this medication. Tylenol is safe to take on as needed basis. After completing this medication, may resume ibuprofen use of 3 tablets or 600-800 mg p.o. 3 times daily with food or snack and then to as needed basis. Rx cyclobenzaprine to take up to 3 times daily for muscle pain and spasms sent to pharmacy of choice. Advised of no driving, operating machinery or safety sensitive work within 8 hours of dosing. Tramadol every 8 hours as needed for moderate to severe pain not controlled with NSAIDs and muscle relaxer. Advised not to combine with any other pain medications or the muscle relaxer as this may cause increased sedation or effects. OARRS report was reviewed on date of visit. Patient is not taking any other narcotic or sedating medications. There is no indication of abuse or misuse for short-term tramadol prescription. Continue with position of comfort, ice and compression. Crutches provi (more content not included)... Normal [facility] Femur Min 2 Viewson 08-05-19 25 Femur Min 2 Views [facility] Imaging Services [address] [place], [place] [id number] Femur Min 2 Views MR#: [id number] Acct: [id number] Name: DO OLSON Rep #: [id number] : 1980 F 44 From: Nnamdi Pagan MD PCP: KYRA Riddle Status: DEP AMB Study: Femur Min 2 Views Date of Exam: 08/04/24 Exam# [id number] Ordering Dr: Brooke Liu PROCEDURE: FEMUR MIN 2 VIEWS REASON FOR EXAM: Injury, pain TECHNIQUE: 2 view(s) of right femur, 4 total images COMPARISON: None. FINDINGS: RIGHT FEMUR: No fracture. No periosteal reaction identified. No osseous lesion seen. RAD/Femur Min 2 Views IMPRESSION: Study appears within limits. Reading Location: [id number] CC: KYRA Padgett; KYRA Liu Production Posting Clerk: Signed Normal [facility] Orthopedic Visit Reporton Orthopedic Visit Report [facility] [address] [place] [address] OFFICE VISIT Date of Service: 08/04/24 MR#: [id number] Acct: [id number] Name: DO OLSON Rep #: [id number] : 1980 Provider: KYRA perdomo Age/Sex: 44/F Location: [facility]DA Status: Signed Intake Vital Signs 06/10/24 06:13 Height 5 ft 7 in Intake Visit Reasons: right hamstring Allergies amoxicillin Allergy (Verified 06/10/24 06:11) Rash [facility] Medical History Wears glasses Smoker Accident in home Puncture wound of foot, left Obesity (BMI 30.0-34.9) Anxiety Surgical History History of breast augmentation History of wisdom tooth extraction History of hysterectomy H/O lumpectomy Family History Other Cervical cancer Heart disease Melanoma Mental disorder Myocardial infarction Ovarian cancer Social History Smoking Status: Current every day smoker (Patient did not smoke today.) tobacco type: e-cigarettes alcohol intake: current alcohol intake frequency: holidays/special occasions only substance use type: does not use HPI right hamstring Details: This documentation accurately reflects the service provided and the decisions made by me, Brooke Liu NP-C 08/04/24 3570. Part of today???s visit was documented by Kenzie STEWART, acting as scribe. DO OLSON is a 44 year old F here today for right hamstring pain. Her pain is over her posterior thigh and the worst of it is right under her right buttock. 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 Since then she has been having a lot of tightness and cramping in her leg. She does have some swelling at the top of her leg but she hasn't noticed any bruising. She has been using an chelsi wrap which has helped with the pain. It is very hard for the patient to ambulate. If she bends her knee it increases her pain. She has been taking Tylenol and Ibuprofen for her pain. Agree with above. Do is a pleasant 44-year-old female presenting for evaluation of right hamstring injury that occurred yesterday, mechanism of injury as described above. No prior injuries or surgeries to this leg. Reports minimal if any relief with Tylenol and ibuprofen for pain, ice does seem to help as well as compression. Patient states unable to independently flex the knee, difficulty with ambulation and weightbearing. ROS Const All systems reviewed are unremarkable except as noted in H and other (A O x 3, no apparent distress. No recent illness.) ENT Denies dizziness Card Denies chest pain, Denies dyspnea, Denies edema and Reports other (No palpitations) Resp Denies cough, Denies dyspnea and Reports other (No recent URI) GI Reports system reviewed and no additional complaints, except as documented, Denies nausea and Denies vomiting Musc Reports abnormal gait and Reports limited range of motion Neuro Yes abnormal gait and No dizziness Psych Reports system reviewed and no additional complaints, except as documented Raymond/Lymph Denies easy bleeding and Denies easy bruising Supplemental Info Independent review of femur and pelvis x-rays completed on date of visit. There is no obvious fracture or misalignment noted, there is visible soft tissue swelling at the proximal upper leg. Await radiology reading. DDx includes hamstring tear, injury at myotendinous junction Coding Level of Care Code Off vis,est,level 4 Diagnoses Right hamstring injury, initial encounter S76.301A Encounter type: initial encounter Assessment and Plan Assessment and Plan (1) Right hamstring injury: Status: Acute Qualifiers: Encounter type: initial encounter Qualified Code(s): S76.301A - Unspecified injury of muscle, fascia and tendon of the posterior muscle group at thigh level, right thigh, initial encounter Plan: We discussed symptom control. Patient was prescribed 5-day course of oral ketorolac to take 3 times daily, avoid other NSAIDs while on this medication. Tylenol is safe to take on as needed basis. After completing this medication, may resume ibuprofen use of 3 tablets or 600 mg p.o. 3 times daily with food or snack and then to as needed basis. Continue with position of comfort, ice and compression. Crutches provided with nonweightbearing status, may gradually add weightbearing as tolerated. Work note provided for today's visit with recommended restrictions. Requesting MRI and plan for follow-up h (more content not included)... Normal [facility] Pelvis 1 or 2 Viewson 2024 Pelvis 1 or 2 Views [facility] Imaging Services [address] [place], [place] [address] Pelvis 1 or 2 Views MR#: [id number] Acct: [id number] Name: EMILY OLSONY KYA Rep #: [id number] : 1980 F 44 From: Nnamdi Pagan MD PCP: KYRA Riddle Status: DEP AMB Study: Pelvis 1 or 2 Views Date of Exam: 08/04/24 Exam# [id number] Ordering Dr: Brooke Liu PROCEDURE: PELVIS 1 OR 2 VIEWS REASON FOR EXAM: Pain, injury TECHNIQUE: 1 view(s) of the pelvis. COMPARISON: None FINDINGS: No fracture or dislocation. Symmetric appearing SI joints and pubic symphysis appear within limits. No osseous lesion identified. RAD/Pelvis 1 or 2 Views IMPRESSION: No fracture or dislocation. Reading Location: [id number] CC: KYRA Padgett; KYRA Liu Production Posting Clerk: Signed Normal [facility] CNOVon 07-03-2024 CNOV Office Visit (OBGYWM ) DO OLSON ([id number]) 1980 F Date Time Provider Department 07/03/24 2:30 PM ROBYN WARNER OBERIC During your visit today, we recorded the following information about you: Pulse Blood pressure Weight 95/minute 113/77 71.7 kg Robyn Warner APRN.CLASS A LINEMAN 07/03/2024 8:40 PM Signed Some documentation from [...] and granola S - none D - 9271-0667 protein and veg and small carb - potato/pasta/corn/rice No dessert S - rare - popcorn or ice cream Fluids: water Bedtime - 2113-6296 Eating Disorder binge eating Dietary changes: B [...] Current Outpatient Medications Medication Sig Dispense Refill clotrimazole-betamethas one (LOTRISONE) cream Apply 1 application to affected [...] Wt 71.7 kg (158 lb) LMP 02/25/2017 (more content not included)... Normal [facility] Discharge Instructionon 05-28 Discharge Instruction [facility] Medical Records Department [address] [place] [address] Instructions for Home/Discharge Instructions 06/10/24 0756 MR#: [id number] Acct: [id number] Name: DO OLSON Rep #: [id number] : 1980 43 From: Eulogio Mello DO PCP: Kartik Padgett PROGRAM SUPPORT CLERK-C Status:REG [facility] Discharge Instructions Diet Discharge Diet: No restrictions Dressing / Incision Call your doctor if you observe: Shortness of breath and Chest pain Additional Dressing/Incision Instructions:: Ice and elevate operative extremity next 72 hours. Keep dressing on clean and dry for 48 hours then may remove and allow warm soapy water to rinse over incision but do not submerge until sutures are out. Then apply bandaid over incision and change daily. encourage finger range of motion. Not lift more than 1/2 pound. Minimize narcotic use only as needed and directed, may use OTC NSAID and Tylenol to supplement/substitute for pain control. Follow Up Care Please Follow Up With: Eulogio Mello DO When: 2 weeks Test Results: Test results from this visit will be discussed in further detail at your follow-up appointment, if applicable. Discharge Plan Admission Primary Reason for Your Visit: Right carpal tunnel release Attending Provider: Eulogio Mello Primary Care Provider: Kartik Padgett [facility] Instructions Print Language: Gibraltarian Discharge Orders/Prescriptions Prescriptions: New oxycodone 5 mg tablet 5 - 10 mg PO Q4H PRN (Reason: pain) 3 Days Qty: 10 0RF Continued fexofenadine [Melinda Allergy] 180 mg tablet 180 mg PO DAILY PRN (Reason: allergic symptoms) amoxicillin 500 mg tablet 500 mg PO TID Qty: 30 0RF phentermine 37.5 mg tablet 37.5 mg PO DAILY metformin 500 mg tablet extended release 24 hr 500 mg PO BID collagen SUPPELEMENT 1 dose PO DAILY trazodone 50 mg tablet 50 mg PO QHS Zepbound 15 mg/0.5 mL pen injector 15 mg subcut QWEEK fluoxetine 20 mg capsule See Rx Instructions .ROUTE .COMPLEX Qty: 30 0RF Dose Instruction: TAKE 1 CAPSULE BY MOUTH DAILY Rx Instructions: TAKE 1 CAPSULE BY MOUTH DAILY Referrals / Follow Up: Kartik Padgett, PROGRAM SUPPORT CLERK-C [Primary Care Provider] - Disposition Disposition (needs filled in before D/C Order can be placed): Home, Self Care 06/10/24 0757 Eulogio Mello DO CC: PROGRAM SUPPORT CLERK-C Kartik Padgett Signed [facility] MR/POSTOP.ANEon 06-10-2024 MR/POSTOP.[facility] Medical Records Department [address] [place] [address] Anesthesia Postop Eval I 06/10/24 0803 MR#: [id number] Acct: [id number] Name: DO OLSON Rep #: [id number] : 1980 43 From: Nnamdi Gann CRNA PCP: KYRA Riddle Status:REG [facility] Y Race: C Location: [place] [address] Anesthesia: Postop Eval I Current Vital Signs Temperature: 98.3 F Pulse Rate: 94 Blood Pressure: 111/61 Respiratory Rate: 16 Pulse Ox: 99 Oxygen Delivery Method: Room Air Assessment Airway patent: Yes Spontaneous unlabored respirations: Yes Mental status: Awake and Calm nausea: No Vomiting: No Anesthesia Complication: No Fluid Hydration Crystalloid volume administer (ml): 10 Total IV fluid infused: 10 Progress Note Anesthesia document: Postop Eval 1 completed: Yes 06/10/24803 Date Nnamdi Gann CRNA Cosigner Signature: Date CC: Signed [facility] [id number] 06-10-2024 MR/POSTOPAN2 [facility] Medical Records Department [address] [place] [place] [address] Anesthesia Postop Eval II 06/10/24 0858 MR#: [id number] Acct: [id number] Name: DO OLSON Rep #: [id number] : 1980 43 From: Victor Manuel Rosas MD PCP: Kartik Padgett, PROGRAM SUPPORT CLERK-C Status:[facility] Y Race: C [place] [facility] [place] Anesthesia Postop Eval I Sum Postop Eval Completion status Anesthesia document: Postop Eval 1 completed: Yes Anesthesia Postop Eval I Summary Anesthesia Postop Eval I Summary: Anesthesia Postop Eval I: Assessment Summary Airway patent Yes 06/10/24 08:04 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 Spontaneous unlabored Yes 06/10/24 08:04 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 respirations Mental status Awake,Calm 06/10/24 08:04 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 nausea No 06/10/24 08:04 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 Vomiting No 06/10/24 08:04 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 Anesthesia Postop Eval I: Fluid Summary Crystalloid volume administer 10 06/10/24 08:04 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 (ml) Colloids volume administered ( ml) Blood Product volume administered (ml) Total IV fluid infused 10 06/10/24 08:04 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 Anesthesia Postop Eval I: Summary Notes Anesthesia Complication No 06/10/24 08:04 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 Complication Comment: Post-operative progress note Anesthesia: Postop Eval II Evaluation Mental status: Awake and Calm Pain Level: 0 nausea: No Vomiting: No Complications Anesthesia Complication: No 06/10/2458 Date Victor Manuel Rosas MD Cosigner Signature: Date CC: Signed Normal [facility] Operative Reporton 5 Operative Report [facility] Medical Records Department [address] [place] [address] Operative Report 06/10/24 0754 MR#: [id number] Acct: [id number] Name: DO OLSON Rep #: [id number] : 1980 43 From: Eulogio Mello DO PCP: Kartik Padgett NP-C Status:REG [facility] [place] Location: [address] Operative Report (Standard) Operative Information Date of Procedure: 06/10/24 Pre-Operative Diagnosis: Bilateral carpal tunnel syndrome Post-Operative Diagnosis: Same Surgery/Procedure Performed: Right open carpal tunnel release left carpal tunnel injection chartered wealth manager: Yes Audit Director: Sukhdeep Addison Tasks completed by accounts payable assistant: Opening closing Type of Anesthesia: Local and MAC RN Documented Start/Stop Times: Operation Date: 06/10/24 07:30 Case Time Into Pre-Op 06/10/24 06:03 Out of Pre-Op 06/10/24 07:21 Anesthesia Start 06/10/24 07:23 Into Room 06/10/24 07:23 Procedure Start 06/10/24 07:36 Procedure End 06/10/24 07:50 Anesthesia End 06/10/24 07:52 Out of Room 06/10/24 07:52 Procedure Start Time: 07:36 Procedure Stop Time: 07:50 Select all DRAINS/GRAFTS/IMPLANTS that apply: None Estimated Blood Loss: 0 Specimen collected: No Description of surgery: Preoperative diagnosis; bilateral carpal tunnel syndrome Postoperative diagnosis; same Procedure: [Right] open carpal tunnel release left carpal tunnel injection Anesthesia: Local with MAC Tourniquet time; [9] minutes 250 mm Hg Complications: None Indication for procedure; This is a 43-year-old [female] with long-standing symptoms consistent with carpal tunnel syndrome the patient did have electrodiagnostic evidence of this and has failed c onservative treatment. Risks benefits and alternatives were reviewed including risks of bleeding infection nerve artery tissue damage need for further surgery and continued pain and symptoms, hypersensitivity to scar and Pillar pain. Procedure; The patient was met in the preoperative holding area the operative extremity was identified by both patient and physician and was marked the patient was met by anesthesia and brought back to the operating room and transferred to the operating table in the supine position. Anesthesia was started. A well-padded tourniquet was placed on the operative upper extremity. The patient was prepped and draped in the usual sterile fashion. A timeout was called to ensure the proper patient procedure and extremity were being contemplated. 0.5 percent [ Lidocaine] with epinephrine was injected into the incisional area. An Esmarch was used to exsanguinate the extremity. The tourniquet was inflated to 250 mmHg. A midline incision was made with a 15 blade scalpel between the thenar and hypothenar eminence. This was carried down through the skin and subcutaneous tissue. Karolyn retractors were then used, a deep blade scalpel was used to make a deep incision in the palmar aponeurosis. The karolyn retractors were then placed deep to this and the transverse carpal ligament was identified a perforation was made with a scalpel and a Littler scissors were used to complete the release of the transverse carpal ligament distally under direct visualization with the tips facing ulnarly until the perivascular fat was reached. Then turning our attention proximally using a tension slide technique the proximal extent of the transverse carpal ligament was released . There was noted to be significant hypertrophy of the transverse carpal ligament. The wound was thoroughly irrigated and was closed with 4-0 nylon vertical mattress stitches. Dressing was applied in the form of xeroform 4 x 4, web roll and an chelsi wrap. Tourniquet was let down there is no intraoperative complications patient tolerated the procedure well. The left hand was then prepped with alcohol and an injection with 20 mg of Depo-Medrol and half cc of 0.25% bupivacaine was injected into the carpal tunnel Band-Aid was applied and was transferred to the PACU. All counts were correct. Surgical Findings: As above Complications Complications: No 06/10/24 0756 Cosigner Signature (if applicable): CC: PROGRAM SUPPORT CLERK-C Kartik Padgett; Dr. Eulogio Mello DO Signed [facility] MR/PAT.SARAHon 05-20-2024 MR/PAT.[facility] Medical Records Department [address] [place] [address] PAT - Anesthesia 05/20/24 1447 MR#: [id number] Acct: [id number] Name: DO OLSON Rep #: [id number] : 1980 43 From: Victor Manuel Rosas MD PCP: KYRA Riddle Status:PRE [facility] [place] Y Race: C [place] [facility] [place] Pre-Assessment Diagnosis/Proposed Procedure Planned Operative Procedure(s): RT open Carpal Tunnel Release, LT carpal tunnel injection Anesthesia History Anesthesia History - acid conditioner: Anesthesia History - acid conditioner Hx Hospitalization No 05/20/24 10:34 Any Problems With Anesthesia No 05/20/24 10:34 Cholinesterase deficiency No 05/20/24 10:34 You/Your Family Experience No 05/20/24 10:34 fever (hyperthermia) with Relationship Recent Exposure to Contagious No 11/08/23 11:49 Disease Does patient have nerve No 05/20/24 10:34 stimulator Patient instructed to have device shut off --Does patient have Pacemaker or ICD? When Was Last Pacemaker Check QUESTION #4 FULL TEXT: You/Your Family Experience fever (hyperthermia) with Anesthesia Last Oral Intake Last Oral intake: Last Oral Intake NPO since Meds taken in AM with sips of water? Meds patient instructed to take am of surgery PONV PONV - acid conditioner: PONV - acid conditioner Female No 05/20/24 10:34 HX of Motion Sickness No 05/20/24 10:34 HX of N/V After Surgery No 05/20/24 10:34 Non-Smoker No 05/20/24 10:34 Duration of Surgery greater No 05/20/24 10:34 than 60 minutes Number of Risk Factors PONV Score Height Weight Height Weight: Anesthesia: Height Weight Height 5 ft 7 in 12/12/23 06:35 Respiratory Assessment Respiratory Assessment - acid conditioner: Respiratory Tract Infection Hx - acid conditioner Hx Respiratory Tract Infection No 05/20/24 10:34 STOP Sleep Apnea STOP Sleep Apnea - acid conditioner: STOP Sleep Apnea - acid conditioner Hx Hypertension No 05/20/24 10:34 Hx Sleep Apnea No 05/20/24 10:34 CPAP BIPAP Do you snore loudly (louder No 05/20/24 10:34 than talking or can be heard Do you often feel tired/ No 05/20/24 10:34 fatigued/ sleepy during daytime? Has anyone observed you stop No 05/20/24 10:34 breathing during sleep? STOP Results Negative 05/20/24 10:34 QUESTION #5 FULL TEXT : Do you snore loudly (louder than talking or can be heard through closed doors)? 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 Specify any problems Hx of Preganancy in last 3 No 05/20/24 10:34 Months Nurse Filling Out Transfusion MGRIFFITH 05/20/24 10:34 Questions: Date: 05/20/24 05/20/24 10:34 Time: 10:37 05/20/24 10:34 Patient unable to answer at this time (ie. confused, unrespo /Reproduction History /Reproductive History - acid conditioner: /Reproductive Hx- acid conditioner Hx Now No 05/20/24 10:34 Gestational Age (in weeks): EDC: Hx Hx Para Hx Section SAB No 05/20/24 10:34 [facility] Medical History (Updated 05/20/24 @ 10:42 by Cindi Martin) Wears glasses Smoker Accident in home Puncture wound of foot, left Obesity (BMI 30.0-34.9) Anxiety Home Medications ???Medication ???Instructions ???Recorded ???Last Taken ???Type fexofenadine 180 mg tablet 180 mg PO DAILY PRN allergic 07/20/22 Unknown History (Melinda Allergy) symptoms fluoxetine 20 mg capsule See Rx Instructions .Route 01/30/23 Unknown Rx .COMPLEX #30 CAPSULES amoxicillin 500 mg tablet 500 mg PO TID #30 tabs 04/01/24 Unknown Rx collagen SUPPELEMENT 1 dose PO DAILY 05/20/24 Unknown History metformin 500 mg tablet,extended 500 mg PO BID 05/20/24 Unknown History release 24 hr phentermine 37.5 mg tablet 37.5 mg PO DAILY 05/20/24 Unknown History trazodone 50 mg tablet 50 mg PO QHS 05/20/24 Unknown History Allergy/AdvReac Type Severity Reaction Status Date / Time (more content not included)... [facility] Office Visit (OBGYWM ) DO OLSON ([id number]) 1980 F Date Time Provider Department 04/09/24 11:30 AM ROBYN WARNER OBERIC During your visit today, we recorded the following information about you: Pulse Blood pressure Weight 85/minute 122/76 70.8 kg Robyn Warner APRN.CNP 04/09/2024 7:51 PM Signed Some documentation [...] and granola S - none D - [id number] protein and veg and small carb - potato/pasta/corn/rice No dessert S - rare - popcorn or ice cream Fluids: water Bedtime - [id number] Eating Disorder binge eating Dietary changes: B [...] (RISTELA ORAL) Take by mouth once daily. 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 Normal [facility] Urgent Care Visit Reporton 1 06-01-2023 Urgent Care Visit Report [facility] [address], [address] [place] [id number] OFFICE VISIT Date of Service: 04/01/24 MR#: [id number] Acct: [id number] Name: DO OLSON Rep #: [id number] : 1980 Provider: DALY Wetzel Age/Sex: 43/F Location: [facility] [place] Status: Signed Intake Vital Signs 12/12/23 06:35 04/01/24 06:11 Height 5 ft 7 in BP 126/64 H Blood Pressure Location Lt brachial Position Sitting Respiration 15 Pulse 87 Pulse Source NIBP Temp 98.7 F Temp Source Oral Pulse Oximetry (%) 97 Oxygen Delivery Method room air Intake Visit Reasons: ST/TRUJILLO/CONGESTION Chief Complaint: ST, TRUJILLO, cough, congestion 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 painful to swallow PFSH Medical History Acute pharyngitis Accident in home Former smoker Puncture wound of foot, left Obesity (BMI 30.0-34.9) Anxiety Surgical History History of wisdom tooth extraction History of hysterectomy H/O lumpectomy Family History Other Cervical cancer Heart disease Melanoma Mental disorder Myocardial infarction Ovarian cancer Social History Smoking Status: Former smoker alcohol intake: current alcohol intake frequency: holidays/special occasions only substance use type: does not use HPI HPI Chief Complaint: ST, TRUJILLO, cough, congestion Details: DO OLSON, is a 43 F who presents to the office today for [facility] evaluation at the [facility] for approximately 1-week history of progressively worsening sore throat, headache, cough, sinus congestion. She describes painful swallowing though no difficulty swallowing. No complaints of fever, chills, myalgias, fatigue, runny nose, or nausea/vomiting/diarrhe a. No complaints of chest pain/shortness of breath/dyspnea on exertion. Several close contacts with similar complaints. Requesting POC screening for streptococcal pharyngitis though declined for COVID-19 and influenza. No other associated symptoms and no other alleviating/aggravating factors. ROS Const Constitutional: No other (as above) Exam Const General: cooperative, healthy appearing and no acute distress Nutritional Appearance: average body habitus Orientation: alert, awake and oriented x3 HENMT Head: normal to inspection Ears: hearing grossly normal bilaterally, external ears normal, TM's normal bilaterally and EAC's normal Nose: external nose normal, nares normal, septum normal and no nasal discharge Face and sinus: normal facial exam, sinuses nontender (Though bilateral maxillary fullness to palpation) and face symmetric Mouth: oral mucosae normal, lip normal, tongue normal and oropharynx normal Throat: posterior oropharynx normal, tonsils with trace erythema though no exudate or hypertrophy, uvula midline and postnasal drainage (Purulent) Eyes General: appearance normal, both eyes and all related structures Neck Neck: normal visual inspection, full ROM, no meningeal signs, supple and lymphadenopathy (Bilateral anterior cervical lymph node swelling/tender to palpation) Neck mass: No Thyroid: thyroid normal Chest Chest palpation inspection: normal inspection of the chest Resp Effort Inspection: normal respiratory effort and able to speak in complete sentences Auscultation: Bilateral: Clear to Auscultation Cardio Palpation: normal PMI Rate: regular rate Rhythm: regular rhythm Heart Sounds: S1 normal, S2 normal, no gallops, no murmurs and no rubs Pulses: radial pulses present GI Inspection: normal to inspection Skin General: no rashes or lesions noted Neuro General: patient alert, patient awake and patient oriented x3 Cognition: normal cognition Speech: speech normal Psych Appearance: grossly normal Mental Status: mental status grossly normal Mood: congruent mood Affect: normal affect Speech and Movement: speech and movement normal Attitude: cooperative Diagnoses Acute maxillary sinusitis, unspecified J01.00 Acute pharyngitis, unspecified J02.9 Assessment and Plan Assessment and Plan (1) Acute maxillary sinusitis, unspecified: Status: Acute (2) Acute pharyngitis, unspecified: Status: Acute Plan: Amoxicillin (and Diflucan per patient request) as prescribed today. Supportive measures as instructed today. Declined work excuse upon offering. Follow-up with PCP in 3 to 5 days should symptoms not improve, sooner shou (more content not included)... Normal [facility] Orthopedic Visit Reporton Orthopedic Visit Report [facility] [address] [place] [address] OFFICE VISIT Date of Service: 03/14/24 MR#: [id number] Acct: [id number] Name: DO OLSON Rep #: [id number] : 1980 Provider: Dr. Eulogio peralta DO Age/Sex: 43/F Location: [facility] [place].[facility] Status: Signed Intake Vital Signs 12/12/23 06:35 Height 5 ft 7 in Intake Visit Reasons: BL HANDS Accompanied by: Self Is patient in pain?: No Allergies No Known Allergies Allergy (Verified 03/14/24 09:19) Medications ???Medication ???Instructions ???Recorded ???Confirmed ???Type Lactobacillus 25 billion cap PO 11/29/21 03/14/24 History cell-Bifido 25 billion aicd-NXV-chxfy capsule (Women's Probiotic) fexofenadine 180 mg tablet 180 mg PO DAILY PRN 07/20/22 03/14/24 History (Melinda Allergy) fluoxetine 20 mg capsule See Rx Instructions .Route 01/30/23 03/14/24 Rx .COMPLEX #30 CAPSULES PFSH Medical History Acute pharyngitis Accident in home Former smoker Puncture wound of foot, left Obesity (BMI 30.0-34.9) Anxiety Surgical History History of wisdom tooth extraction History of hysterectomy H/O lumpectomy Family History Other Cervical cancer Heart disease Melanoma Mental disorder Myocardial infarction Ovarian cancer Social History Smoking Status: Former smoker alcohol intake: current alcohol intake frequency: holidays/special occasions only substance use type: does not use HPI BL HANDS Details: This documentation accurately reflects the service provided and the decisions made by me, Dr. Eulogio Mello, DO 03/14/24 0809. Part of today???s visit was documented by [ ], acting as scribe. DO OLSON is a 43 year old F 03/14/2024: Here for EMG review. No change in her hands or wrist. Left is still worse and she is right hand dominant. 03/07/2024 visit: 43 year old F here today for bilateral hand numbness and tingling that she has been having for 12 years. When she wakes up her hands are swollen and she wakes up in the middle of the night she gets sharp pain in her wrists. She does take ibuprofen for the pain. The left hand is worse. She states she has tried night bracing and it doesn't give her relief. If she tries to do anything with her hand elevated her hands go numb. She would like to discuss next steps. Patient is right hand dominant. Symptoms worse in the left Ortho Exam General General: Yes no acute distress Neurologic: Yes alert and Yes oriented x3 Psychologic: Yes reasonable and appropriate Right Wrist/Hand Skin/Wound: No Swelling, No Ecchymosis, Yes nail intact and Yes capillary refill normal Right Wrist: No Thenar Atrophy or Hypothenar Atrophy Sensation: Radial: I, Ulnar: I and Median: I WRIST: full spu 85 extension 49 flexion positive tinels +phalens +durken 5/5 abbduction strngth She is not tender and there is no bogginess of her MCPs There is no swelling that I can appreciate in her fingers or hand Left Wrist/Hand Skin/Wound: No Swelling, No Ecchymosis, Yes nail intact, No capillary refill normal and No erythema Left Wrist: Yes Tinel's and Yes Phalen's; No Thenar Atrophy and No Hypothenar Atrophy Sensation: Radial: I, Ulnar: I and Median: I WRIST: 75 extension, passive 82 49 flexion full supination and pronation 5/5 abbduction strngth She is not tender and there is no bogginess of her MCPs There is no swelling that I can appreciate in her fingers or hand Right Elbow ELBOW: negative tinels Left Elbow ELBOW: negative tinels Supplemental Info 03/12/2024 EMG bilateral upper extremity: 1. Electrodiagnostic findings suggestive of bilateral median mononeuropathy. This is consistent with a mild to moderate bilateral carpal tunnel syndrome. 2. No electrodiagnostic evidence is noted for cervical radiculopathy. Coding Level of Care Code Off vis,est,level 3 Diagnoses Bilateral carpal tunnel syndrome G56.03 Assessment and Plan Assessment and Plan (1) Bilateral carpal tunnel syndrome: Status: Acute Plan Patient is here today for EMG review. Spoke with patient that her EMG does show mild to moderate bilateral carpal tunnel syndrome bilateral. She has tried the night bracing with no relief. Discussed with patient that her other treatment options are do nothing, injection, nerve glide exercises or carpal tunnel release. I did advise patient hat after surgery for the first 2 weeks she will have a .5lb restriction then for the next 1 weeks she will have a 5lb restriction. I also did inform patient that it's not a 100% guarantee that the surgery will relieve a (more content not included)... Normal [facility] NCS and/or EMG Patienton NCS and/or EMG Patient [facility] Pulmonary Services/Neurology [address] [place] [address] MR#: [id number] Acct: [id number] Name: DO OLSON Rep #: [id number] : 1980 43 From: Jessica Sorenson MD Referring Dr: Eulogio Mello DO Status: REG CLI Location: PSN Date: 03/12/24 Sex: F C NCS and/or EMG Patient Report Ordering Doctor: Eulogio Mello DATE OF SERVICE: 03/12/24 Do presents for electrodiagnostic testing of the upper limbs. She reports numbness and tingling in digits 1 through 3 of both hands, worse on the left side. Electrodiagnostic findings: Left median motor nerve demonstrates prolonged latency with normal amplitude and conduction velocity. Right median motor nerve demonstrates prolonged latency with normal amplitude and conduction velocity. Ulnar motor responses within normal limits, including conduction across the elbow. Normal median ulnar F???waves. Prolonged median sensory latency at the wrist bilaterally. Absent median palmar response bilaterally. Needle EMG testing was performed upper limbs. All muscles tested showed no evidence of denervation with normal motor unit action potentials. Electrodiagnostic impression: This is an abnormal study in the upper limbs 1. Electrodiagnostic findings suggestive of bilateral median mononeuropathy. This is consistent with a mild to moderate bilateral carpal tunnel syndrome. 2. No electrodiagnostic evidence is noted for cervical radiculopathy. Multi Select Codes Neurology Neurology Interp Codes: 90079-16 Musc test done w/n test comp (interp) (2) and 31808-87 Nrv cndj test 13/> studies (interp) 03/12/24 1505 Date Jessica Sorenson MD CC: PROGRAM SUPPORT CLERK-C Kartik Padgett; Dr. Jessica Sorenson MD; Dr. Eulogio Mello DO Date Dictated: 03/12/24 1502 Date Transcribed: 03/12/24 150 Production Posting Clerk: AA Signed Normal [facility] Orthopedic Visit Reporton Orthopedic Visit Report [facility] [address] [place] [address] OFFICE VISIT Date of Service: 03/07/24 MR#: [id number] Acct: [id number] Name: DO OLSON Rep #: [id number] : 1980 Provider: Dr. Eulogio peralta DO Age/Sex: 43/F Location: [facility] Status: Signed Intake Vital Signs 12/12/23 06:35 Height 5 ft 7 in Weight: 164 lb 8 oz BMI 25.7 BP 102/60 Position Sitting Pulse 68 Temp 98.9 F Temp Source Temporal Pulse Oximetry (%) 98 Oxygen Delivery Method room air Intake Visit Reasons: BL HANDS Allergies No Known Allergies Allergy (Verified 03/07/24 09:04) Medications ???Medication ???Instructions ???Recorded ???Confirmed ???Type Lactobacillus 25 billion cap PO 11/29/21 03/07/24 History cell-Bifido 25 billion zbxu-IJS-brkfz capsule (Women's Probiotic) fexofenadine 180 mg tablet 180 mg PO DAILY PRN 07/20/22 03/07/24 History (Melinda Allergy) fluoxetine 20 mg capsule See Rx Instructions .Route 01/30/23 03/07/24 Rx .COMPLEX #30 CAPSULES PFSH Medical History Acute pharyngitis Accident in home Former smoker Puncture wound of foot, left Obesity (BMI 30.0-34.9) Anxiety Surgical History History of wisdom tooth extraction History of hysterectomy H/O lumpectomy Family History Other Cervical cancer Heart disease Melanoma Mental disorder Myocardial infarction Ovarian cancer Social History Smoking Status: Former smoker alcohol intake: current alcohol intake frequency: holidays/special occasions only substance use type: does not use HPI BL HANDS Details: This documentation accurately reflects the service provided and the decisions made by me, Dr. Eulogoi Mello, 03/07/24 0844. Part of today???s visit was documented by Kenzie STEWART, acting as scribe. DO OLSON is a 43 year old F here today for bilateral hand numbness and tingling that she has been having for 12 years. When she wakes up her hands are swollen and she wakes up in the middle of the night she gets sharp pain in her wrists. She does take ibuprofen for the pain. The left hand is worse. She states she has tried night bracing and it doesn't give her relief. If she tries to do anything with her hand elevated her hands go numb. She would like to discuss next steps. Patient is right hand dominant. Symptoms worse in the left Ortho Exam General General: Yes no acute distress Neurologic: Yes alert and Yes oriented x3 Psychologic: Yes reasonable and appropriate Right Wrist/Hand Skin/Wound: No Swelling, No Ecchymosis, Yes nail intact and Yes capillary refill normal Right Wrist: No Thenar Atrophy or Hypothenar Atrophy Sensation: Radial: I, Ulnar: I and Median: I WRIST: full spu 85 extension 49 flexion positive tinels +phalens +durken 5/5 abbduction strngth She is not tender and there is no bogginess of her MCPs There is no swelling that I can appreciate in her fingers or hand Left Wrist/Hand Skin/Wound: No Swelling, No Ecchymosis, Yes nail intact, No capillary refill normal and No erythema Left Wrist: Yes Tinel's and Yes Phalen's; No Thenar Atrophy and No Hypothenar Atrophy Sensation: Radial: I, Ulnar: I and Median: I WRIST: 75 extension, passive 82 49 flexion full supination and pronation 5/5 abbduction strngth She is not tender and there is no bogginess of her MCPs There is no swelling that I can appreciate in her fingers or hand Right Elbow ELBOW: negative tinels Left Elbow ELBOW: negative tinels Coding Level of Care Code Off vis,est,level 4 Diagnoses Bilateral carpal tunnel syndrome G56.03 Assessment and Plan Assessment and Plan (1) Bilateral carpal tunnel syndrome: Status: Acute Orders: Orders NCS and/or EMG Patient Today G56.03 - Carpal tunnel syndrome, bilateral upper limbs Plan Patient is here today for bilateral hand numbness and tingling. advised patient that she is probably having symptoms of carpal tunnel. I recommend patient get an EMG bilateral upper extremities to as sess the severity. Did discuss restrictions with patient after a carpal tunnel release and expected postoperative course. Advised her that the restriction would be noting more than half a pound for the first 2 weeks then after she would have a 5 pound restriction. Also informed her that 3-4 month after surgery she could have some soreness around the incision. Risks, benefits and alternatives of surgery reviewed including but no limited to risk of incisional hypersensitivity, pillar pain and continued symptomology, nerve or artery damage, finger and wrist (more content not included)... Normal [facility] CNOVon 02-13-2024 CN Office Visit (OBGYWM ) TOMMYEMILY EliasBharathi Glover ([id number]) 1980 F Date Time Provider Department 02/13/24 7:30 AM ROBYN WARNER During your visit today, we recorded the following information about you: Pulse Blood pressure Weight 92/minute 110/71 73.9 kg Robyn Warner APRN.CNP 02/13/2024 7:50 PM Signed Some documentation from previous visit of 12/26/2023 was copied and pasted, documentation has been [...] 2 months ago. Assessment/plan from last visit: -Metformin 500 mg tablet twice a day with meals -Topiramate 25 mg tablet -Phentermine 37.5 mg tablet . BED- mild and in remission Interval History PT specifies the following items as new or significant updates since the last appointment: numbness in hands at night from topiramate causes carpal tunnel pain Trying to decide if it is worth the cost to take small amount of tirzepatide again Weight loss since last vist: Date: Weight: BMI: Medications: 02/13/2024 163 lb 25.53 12/26/2023 160 lb 25.18 Metformin, Topiramate, Phentermine 04/06/2021 210 lb BMI 31.61 Tirzepatide escalation to 15 mg LD 11/2023 WC: 32.5 in 5% weight loss = 153 lbs, 10% weight loss = 145 lbs Anti-obesity medications: meformin Benefit:increased fullness Adverse effects: diarrhea Anti-obesity medications: Phentermine. Benefit:decreased appetite Adverse effects: none Anti-obesity medications: Topiramate. Benefit:decreased food thoughts Adverse effects: numbness in hands at night cause carpal tunnel pain Weight promoting medications: None Previous Diet (initial [...] and granola S - none D - [id number] protein and veg and small carb - potato/pasta/corn/rice No dessert S - rare - popcorn or ice cream Fluids: water Bedtime - [id number] Eating Disorder binge eating Dietary changes: B - 30 gm protein shake and banana S - occas cheese stick L - 30 gm protein shake and small portion of whatever is catered in her office for lunch - chicken breast/lasagne/salad S - none D - meat and veg. Sometimes rice or potato S - none Fluids - protein shakes, water Current Barriers: large portion sizes Exercise: increased - started [employer] Regular exercise: yes Strength/resistance exercise:yes Barriers to regular exercise? no Work-related activity: depends on the day, mostly sedentary unless she is helping on the floor. 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 Sleep: stable 7 hours CrCl cannot be calculated (No successful lab value found.). 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 180 tablet 0 citrull/argin/pine xt/vishnu hip (RISTELA ORAL) Take by mouth once daily. clotrimazole-betamethas one (LOTRISONE) cream Apply 1 application to affected area two times a day. 15 g 0 FLUoxetine (PROZAC) 20 mg capsule Take 20 mg by mouth once daily. Lactobacillus acidophilus (PROBIOTIC ORAL) Take by mouth. Vaginal health traZODone (DESYREL) 50 mg tablet Take 50 mg by mouth daily at bedtime. metFORMIN ER (GLUCOPHAGE XR) 500 mg 24 hr tablet Take 1 tablet by mouth two times a day. 180 tablet 1 Phentermine HCl 37.5 mg tablet Take 1 tablet by mouth daily before breakfast for 60 days. 60 tablet 0 No current facility-administered medications for this visit. 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 Physical Exam Constitutional: She appears healthy. No distress. Results: recent labs reviewed with the patient. Outside labs: 12/27/2023 [facility] CBC WNL (more content not included)... Normal [facility] CNCOon 02-05-2024 CNCO HNO ID: [id number] Author: COORDINATOR, MAMMOGRAPHY, ? Service: ? Author Type: Physician Type: Letter Filed: 02/05/2024 06:25 Note Text: February 06, 2024 PID: [id number] Do Olson [address] [place] [address] Dear Ms. Olson, We are pleased to inform you that the results of your recent breast imaging exam on 02/01/2024 are normal. Breast tissue can be either dense or not dense. Dense tissue makes it harder to find breast cancer on a mammogram and also raises the risk of developing breast cancer. Your breast tissue is dense. In some people with dense tissue, other imaging tests in addition to a mammogram may help find cancers. Talk to your healthcare provider about breast density, risks for breast cancer, and your individual situation. Early detection of cancer is very important. We also understand recommendations regarding breast cancer screening are controversial. Please discuss with your primary care provider which strategy is best for you and whether a mammogram is right for you. Your imaging studies and report will be kept on file at [facility] as part of your permanent medical record and are available for your continuing care. Thank you for allowing us to help in meeting your health care needs. Sincerely, Dr. Valdovinos Interpreting Radiologist [facility] (Normal over 40) Normal [facility] SCREENING W TOMOon 01-31 [facility] SCREENING W RJ * * *Final Report* * * DATE OF EXAM: Feb 01 2024 1:20PM [facility] 0582 - [facility] SCREENING W RJ / PROCEDURE REASON: Encounter for screening mammogram for malignant neoplasm of breast * * * * Physician Interpretation * * * * RESULT: #[id number] - [facility] SCREENING W RJ BILATERAL DIGITAL SCREENING MAMMOGRAM TOMOSYNTHESIS WITH CAD: 02/01/2024 HISTORY: Encounter For Screening Mammogram For Malignant Neoplasm Of Breast / Screening Mammogram-Patient reports NO symptoms. /priors available for comparison. RESULT: TECHNIQUE: The study was acquired using full field digital technology and interpreted from soft copy. Digital Breast Tomosynthesis (DBT) images were obtained and used to assist in the interpretation of this examination. Current study was also evaluated with a Computer Aided Detection (CAD). Comparison is made to exam dated: 08/13/2020 mammogram - [facility]. The breasts are heterogeneously dense, which may obscure small masses. Bilateral breast implants are stable. No significant masses, calcifications, or other findings are seen in either breast. There has been no significant interval change. IMPRESSION: NEGATIVE There is no mammographic evidence of malignancy. A 1 year screening mammogram is recommended. Arin Valdovinos M.D., jr/penkatherin:02/05/2024 06:25:39 Marine Cargo Specialist(s): Carolin Panda [facility] letter sent: Normal over 40 Mammogram BI-RADS: Category 1: Negative Multiple national specialty organizations have released breast cancer screening guidelines for women at average risk for developing breast cancer - guidelines that are based on both evidence and opinion, yet differ on when to start and how often to screen for breast cancer. With representation from Breast Imaging, Internal Medicine, Women's Health, Family Medicine, and Medical/Surgical Oncology, the [facility] has carefully reviewed the data and reached the following consensus: 1) All women should engage in shared decision-making with their providers to decide when to start and how often to screen; 2) All women should have the opportunity to start screening mammography at age 40; 3) For women ages 45-55, we recommend annual screening mammograms; 4) For women ages 55 and over, we support both the transition from an annual to a biennial interval if this aligns more with patient's values and preferences, or continuation with annual screening; 5) All women should discuss with their providers when to stop screening mammograms. Production Posting Clerk: Jacinda Transcribe Date/Time: Feb 01 2024 12:55P Dictated by: ARIN VALDOVINOS MD This examination was interpreted and the report reviewed and electronically signed by: ARIN VALDOVINOS MD on Feb 05 2024 6:25AM EST [id number] [facility]RDXWS) DO OLSON ([id number]) 1980 F Date Time Provider Department 01/21/24 ROBYN WARNER RDXWS During your visit today, we recorded the following information about you: Veronica Duff, Mammo Tech 01/21/2024 7:55 AM Signed Could we have a mammorgram order? Pt has appt with us 01/31, Thanks Liliam Riley, RN 01/21/2024 9:18 AM Signed Please file new Mamm with RJ order. Unable to link the order placed on 11/23/23. Liliam Wong RN Allergies As of Date: 01/21/2024 (No Known Allergies) Date Reviewed: 12/26/2023 Reviewed by: Robyn Warner APRN.CLASS A LINEMAN - Fully Assessed Reason for Visit: Orders [681] Primary Visit Diagnosis:Encounter for screening mammogram for malignant neoplasm of breast [Z12.31] Order(s):TAMIKO SCREENING W RJ [[id number]] Order #: [id number] FUTURE Prescriptions as of 01/21/2024 - topiramate (TOPAMAX) 25 mg tablet Take 1 tablet by mouth two times a day. - Phentermine HCl 37.5 mg tablet Take 1 tablet by mouth daily before breakfast for 45 days. - metFORMIN (GLUCOPHAGE) 500 mg tablet Take 1 tablet by mouth two times a day with meals. - tirzepatide (MOUNJARO) 15 mg/0.5 mL pen injector Inject 15 mg subcutaneously one time a week. - citrull/argin/pine xt/vishnu hip (RISTELA ORAL) Take by mouth once daily. - clotrimazole-betamethas one (LOTRISONE) cream Apply 1 application to affected area two times a day. - FLUoxetine (PROZAC) 20 mg capsule Take 20 mg by mouth once daily. - Lactobacillus acidophilus (PROBIOTIC ORAL) Take by mouth. Vaginal health - traZODone (DESYREL) 50 mg tablet Take 50 mg by mouth daily at bedtime. 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 [D24.1] 09/15/2020 Anxiety [F41.9] 11/23/2023 Stress incontinence [N39.3] 11/23/2023 History of obesity [Z86.39] 11/23/2023 Osteoarthritis of left knee [M17.12] 12/25/2023 History of gestational diabetes [Z86.32] 12/26/2023 Binge-eating disorder, in full remission, mild *12/26/2023 Encounter Status:Closed by LILIAM WONG on 01/21/24 Normal [facility] CBC-Complete Blood Cnt No Di ffon 12-27-2023 Erythrocyte distribution width (RBC) [Ratio] 12.3 % Normal 11.6-14.6 [facility] Comment on above: Performed By: #### L 500.4100, L501.9520, L100.0500, L500.4050, L501.9985 ####[facility] [address] [place], [address] Hematocrit (Bld) [Volume fraction] 40.4 % Normal 37-47 [facility] Comment on above: Performed By: #### L 500.4100, L501.9520, L100.0500, L500.4050, L501.9985 ####[facility] [address] [place], [address] Hemoglobin (Bld) [Mass/Vol] 13.2 g/dL Normal 12.0-15.0 [facility] Comment on above: Performed By: #### L 500.4100, L501.9520, L100.0500, L500.4050, L501.9985 ####[facility] [address] [place], [address] MCH (RBC) [Entitic mass] 29.1 pg Normal 27.0-32.0 [facility] Comment on above: Performed By: #### L 500.4100, L501.9520, L100.0500, L500.4050, L501.9985 ####[facility] [address] [place], [address] MCHC (RBC) [Mass/Vol] 32.7 g/dL Normal 32-36 [facility] Comment on above: Performed By: #### L 500.4100, L501.9520, L100.0500, L500.4050, L501.9985 ####[facility] [address] [place], [address] MCV (RBC) [Entitic vol] 89.0 fL Normal 81-99 [facility] Comment on above: Performed By: #### L 500.4100, L501.9520, L100.0500, L500.4050, L501.9985 ####[facility] [address] [place], [address] Platelet mean volume (Bld) [Entitic vol] 9.0 fL Normal 6.2-12.0 [facility] Comment on above: Performed By: #### L 500.4100, L501.9520, L100.0500, L500.4050, L501.9985 ####[facility] [address] [place], [address] Platelets (Bld) [#/Vol] 387 10*3/uL Normal 150-450 [facility] Comment on above: Performed By: #### L 500.4100, L501.9520, L100.0500, L500.4050, L501.9985 ####[facility] [address] [place], [address] RBC (Bld) [#/Vol] 4.54 10*6/uL Normal 4.2-5.4 [facility] Comment on above: Performed By: #### L 500.4100, L501.9520, L100.0500, L500.4050, L501.9985 ####[facility] [address] [place], [address] RDW SD 40.0 fl Normal 35.1-43.9 [facility] Comment on above: Performed By: #### L 500.4100, L501.9520, L100.0500, L500.4050, L501.9985 ####[facility] [address] [place], [address] WBC (Bld) [#/Vol] 6.7 10*3/uL Normal 4.4-11.0 [facility] Comment on above: Performed By: #### L 500.4100, L501.9520, L100.0500, L500.4050, L501.9985 ####[facility] [address] [place], [address] Comprehensive Metabolic Prof ilon 12-27-2023 Albumin [Mass/Vol] 3.9 g/dL Normal 3.2-5.0 [facility] Comment on above: Performed By: #### L 500.4100, L501.9520, L100.0500, L500.4050, L501.9985 ####[facility] [address] [place], [address] Albumin/Globulin [Mass ratio] 1.1 {ratio} Normal 0.9-2.4 [facility] Comment on above: Performed By: #### L 500.4100, L501.9520, L100.0500, L500.4050, L501.9985 ####[facility] [address] [place], [address] ALK P 79 U/L Normal 45-117 [facility] Comment on above: Performed By: #### L 500.4100, L501.9520, L100.0500, L500.4050, L501.9985 ####[facility] [address] [place], [address] ALT [Catalytic activity/Vol] 14 U/L Normal 13-56 [facility] Comment on above: Performed By: #### L 500.4100, L501.9520, L100.0500, L500.4050, L501.9985 ####[facility] [address] [place], [address] AST [Catalytic activity/Vol] 14 U/L Low 15-37 [facility] Comment on above: Performed By: #### L 500.4100, L501.9520, L100.0500, L500.4050, L501.9985 ####[facility] [address] [place], [address] Bilirubin [Mass/Vol] 0.40 mg/dL Normal 0.20-1.00 [facility] Comment on above: Result Comment: For patients on eltrombopag therapy, use of Dimension [place] TBIL is not recommended. Performed By: #### L 500.4100, L501.9520, L100.0500, L500.4050, L501.9985 ####[facility] [address] [place], [address] BUN/CRE 17.1 RATIO Normal 10-20 [facility] Comment on above: Performed By: #### L 500.4100, L501.9520, L100.0500, L500.4050, L501.9985 ####[facility] [address] [place], [address] CA,Total 8.8 mg/dL Normal 8.5-10.1 [facility] Comment on above: Performed By: #### L 500.4100, L501.9520, L100.0500, L500.4050, L501.9985 ####[facility] [address] [place], [address] Chloride [Moles/Vol] 103 mmol/L Normal 98-107 [facility] Comment on above: Performed By: #### L 500.4100, L501.9520, L100.0500, L500.4050, L501.9985 ####[facility] [address] [place], [address] CO2 [Moles/Vol] 27.0 mmol/L Normal 21.0-32.0 [facility] Comment on above: Performed By: #### L 500.4100, L501.9520, L100.0500, L500.4050, L501.9985 ####[facility] [address] [place], [address] Creatinine [Mass/Vol] 0.76 mg/dL Normal 0.55-1.02 [facility] Comment on above: Result Comment: The validity of the calculated GFR GFRAA in patients over 70 years has not been determined. Clinical correlation is essential. Performed By: #### L 500.4100, L501.9520, L100.0500, L500.4050, L501.9985 ####[facility] [address] [place], [address] EST GFR - AA 107 mL/min Normal >60 [facility] Comment on above: Result Comment: Afri can Trinidadian GFR Calc Performed By: #### L 500.4100, L501.9520, L100.0500, L500.4050, L501.9985 ####[facility] [address] [place], [address] GAP 5 Normal 5-15 [facility] Comment on above: Performed By: #### L 500.4100, L501.9520, L100.0500, L500.4050, L501.9985 ####[facility] [address] [place], [address] GFR/1.73 sq M.predicted among non-blacks MDRD (S/P/Bld) [Vol rate/Area] 88 mL/min/{1.73_m2} Normal >60 [facility] Comment on above: Result Comment: Non- GFR Calc Performed By: #### L 500.4100, L501.9520, L100.0500, L500.4050, L501.9985 ####[facility] [address] [place], [address] Globulin (S) [Mass/Vol] 3.6 g/dL Normal 2.2-4.2 [facility] Comment on above: Performed By: #### L 500.4100, L501.9520, L100.0500, L500.4050, L501.9985 ####[facility] [address] [place], [address] Glucose [Mass/Vol] 89 mg/dL Normal 74-106 [facility] Comment on above: Performed By: #### L 500.4100, L501.9520, L100.0500, L500.4050, L501.9985 ####[facility] [address] [place], [address] Potassium [Moles/Vol] 3.9 mmol/L Normal 3.5-5.1 [facility] Comment on above: Performed By: #### L 500.4100, L501.9520, L100.0500, L500.4050, L501.9985 ####[facility] [address] [place], [address] Sodium [Moles/Vol] 135 mmol/L Low 136-145 [facility] Comment on above: Performed By: #### L 500.4100, L501.9520, L100.0500, L500.4050, L501.9985 ####[facility] [address] [place], [address] T PROT 7.5 g/dL Normal 6.4-8.2 [facility] Comment on above: Performed By: #### L 500.4100, L501.9520, L100.0500, L500.4050, L501.9985 ####[facility] [address] [place], [address] Urea nitrogen [Mass/Vol] 13 mg/dL Normal 7-18 [facility] Comment on above: Performed By: #### L 500.4100, L501.9520, L100.0500, L500.4050, L501.9985 ####[facility] [address] [place], [address] Hemoglobin A1con 12-27-2023 HbA1c (Bld) [Mass fraction] 5.0 % Normal 3.8-5.6 [facility] Comment on above: Result Comment: Norm al < 5.7 % Prediabetic 5.7 - 6.4 % Diabetic >or= 6.5 % Please note range changes. Performed By: #### L 500.4100, L501.9520, L100.0500, L500.4050, L501.9985 ####[facility] [address] [place], [address] Lipid Profileon 12-27-2023 Cholesterol [Mass/Vol] 159 mg/dL Normal 200 [facility] Comment on above: Result Comment: <200 mg/dL Desirable 200-240 mg/dL Borderline >240 mg/dL High Risk Performed By: #### L 500.4100, L501.9520, L100.0500, L500.4050, L501.9985 ####[facility] [address] [place], [address] Cholesterol in HDL [Mass/Vol] 75 mg/dL Normal [facility] Comment on above: Result Comment: The drugs N-Acetylcysteine and Metamizole may falsely depress this assay. Reference Range HDL <40 mg/dL Low HDL Cholesterol HDL >or= 60 mg/dL High HDL Cholesterol Performed By: #### L 500.4100, L501.9520, L100.0500, L500.4050, L501.9985 ####[facility] [address] [place], [address] Cholesterol in LDL [Mass/Vol] 74 mg/dL Normal 0-130 [facility] Comment on above: Performed By: #### L 500.4100, L501.9520, L100.0500, L500.4050, L501.9985 ####[facility] [address] [place], [place], [id number] Cholesterol in VLDL [Mass/Vol] 10 mg/dL Normal 5-40 [facility] Comment on above: Performed By: #### L 500.4100, L501.9520, L100.0500, L500.4050, L501.9985 ####[facility] [id number] [place], [place], [id number] Triglyceride [Mass/Vol] 50 mg/dL Normal [facility] Comment on above: Result Comment: The drugs N-Acetylcysteine and Metamizole may falsely depress this assay. Serum Triglycerides Reference Interval Normal <150 mg/dL Borderline high 150 - 199 mg/dL High 200 - 499 mg/dL Very High > or = 500 mg/dL Performed By: #### L 500.4100, L501.9520, L100.0500, L500.4050, L501.9985 ####[facility] [id number] [place], [place], [id number] Thyroid Stim Hormone (TSH)on 12-27-2023 TSH 0.52 uIU/mL Normal 0.358-3.74 [facility] Comment on above: Performed By: #### L 500.4100, L501.9520, L100.0500, L500.4050, L501.9985 ####[facility] [id number] [place], [place], [id number] CNOVon 12-26-2023 CNOV Office Visit (GROVER ) DO OLSON ([id number]) 1980 F Date Time Provider Department 12/26/23 7:00 AM ROBYN WARNER During your visit today, we recorded the following information about you: Pulse Blood pressure Weight Height 73/minute 110/62 72.9 kg 1.702 m Robyn Warner APRN.ANMOL 12/26/2023 8:06 AM Addendum Weight Management: You have taken the initiative to become a healthier version of yourself and to decrease the risks that come with the diagnosis of obesity or being overweight. We are happy to help you along this journey but know this is a lifetime commitment to yourself. Losing just 3-10 % of your body weight can decrease your risks of many other serious diseases like diabetes, heart disease, osteoarthritis, hypertension, cancer and so many others. During this time you will have triumphs, setbacks and plateaus- your body will fight against you but we are here to give you the tools and the resources to continue to reach your goals. We recommend during this time that you track your weight daily or at least five times per week as well as tracking your nutrition. You may track your activity but do not use hitting your fitness goals as a reward system as this can derail your success. We recommend weekly physical activity of 150-200 min/week-although physical exercise, this will be especially important for weight maintenance. Exercise can have many other benefits including improving insulin resistance, improving balance, bone health, improving mental health and cardiovascular health. Do not feel overwhelmed - we will discuss this more at your visits. Our time will be limited with each visit but we will try to touch on factors that are important to you and to your overall goals. We will try to set a goal at the end of each visit and then decide on what we want to accomplish with your upcoming visits. On your After Visit Summary (AVS), we will provide you with information that may be useful during this journey so please remember to read the information given. Check your AVS a few days after your appointment because we may have added more information specifically for you. Remember that if you are placed on medications, they are tools that can help you succeed but you must put in the work. Your nutrition will be the main factor. There are medications that work well for some and not for others- so it may take time to find the right combination for your body's needs. Please remember that factors such as other health co-morbidities one might have, as well as insurance coverage, will play a factor in determining which medications you can take. Most of the newer medications that are all the craze ,injectables, may not be covered or will only be covered if you fail months of oral medications or have Type 2 diabetes so please be patient with the process. It would be beneficial for you to determine what your insurance covers as far as Anti-Obesity Medications (AOMs), Nutritional Counseling, behavioral intervention and weight loss surgery. Please call your health insurance prior to your first appointment and write down coverage for each of those therapies. Most importantly, remember that ultimately our goal is to help you get to a healthier weight which will decrease your overall health risks. We will work together as a team and try to reach your personalized goals as well. Follow-up appointments Please arrive to follow-up visits a minimum of 15 minutes prior to your appointment. Follow-up weight management visits can be virtual. You will need to report a current blood pressure, heart rate (pulse) and weight at the beginning of each virtual appointment so you will need to have a reliable BP cuff, either wrist or upper arm. If you need to reschedule your appointment time or switch from an in-office visit to a virtual visit or vice versa, you need to call our office as we have designated appointment slots. This should not be done on [employer] as you will not be scheduled appropriately and will need to be rescheduled. We appreciate that you have entrusted us with your health and know that we are committed to this process with you. Sincerely, Evelin Rm MD, SAMUEL GEE AND Robyn Warner, ANMOL Advanced Education from the [employer] Obesity Obesity is a disease that affects nearly one-third of the adult [place] population (approximately 60 million). The number of overweight and obese Americans has continued to increase since 1960, a trend that is not slowing down. Today, 64.5 percent of adult Americans (about 127 million) are categorized as being overweight or obese. Each year, obesity causes at least 300,000 excess deaths in the [place] and healthcare costs of [place] adults with obesity amount to approximately $100 billion. (AOA) Obesity is a complex, multi-factorial ch (more content not included)... Normal [facility] percentageOrdered B y: Jesus Manuel Burris on 09-26-2023 Testosterone [Mass/Vol] 3 ng/dL 4-50 [facility] Free testosterone percentage Ordered By: eJsus Manuel Burris on 09-26-2023 Testosterone Free/Testosterone.tota l [Mass fraction] 1.53 % 0.50-2.80 [facility] No Panel InformationOrdered By: Jesus Manuel Burris on 09-26-2023 Estradiol (E2) Level 72.9 pg/mL [facility] Comment on above: NORMAL REFERENCE RAN GES FEMALE FOLLICULAR 21.4 - 164.8 pg/mL MID-CYCLE PEAK 49.9 - 367.2 pg/mL LUTEAL 40.2 - 259.0 pg/mL POST-MENOPAUSAL ON MHT <11.0 - 462.1 pg/mL NOT ON MHT <11.0 - 58.3 pg/mL MALE <11.0 - 52.5 pg/mL NOTE:[employer] HAS CONFIRMED THE DRUG FULVETRANT (FASLODEX) MAY CAUSE FALSELY ELEVATED ESTRADIOL RESULTS WHEN USING THIS TEST METHOD. IF PATIENT IS TAKING FULVESTRANT AN ALTERNATIVE METHOD SHOULD BE USED TO DETERMINE ESTRADIOL CONCENTRATION. Follicle Stimulating Hormone 4.8 mIU/mL [facility] Comment on above: NORMAL REFERENCE RAN GES FEMALE FOLLICULAR 2.3 - 12.6 mIU/mL MID-CYCLE PEAK 5.2 - 17.5 mIU/mL LUTEAL 1.7 - 12.9 mIU/mL POST-MENOPAUSAL ON MHT 5.9 - 72.8 mIU/mL NOT ON MHT 12.7 - 132.2 mlU/mL MALE 0.7 - 10.8 mIU/mL Luteinizing Hormone 4.0 mIU/mL [facility] Comment on above: NORMAL REFERENCE RAN GES FEMALE FOLLICULAR 1.9 - 26.2 mIU/mL MID-CYCLE PEAK 22.8 - 76.1 mIU/mL LUTEAL 0.6 - 16.6 mIU/mL POST-MENOPAUSAL ON MHT 1.1 - 52.4 mIU/mL NOT ON MHT 8.6 - 61.8 mIU/mL MALE 1.2 - 10.6 mIU/mL Serum or plasma progesterone measurement (mass/volume)Ordered By: Jesus Manuel Burris on 09-26-2023 Progesterone [Mass/Vol] 8.61 ng/mL See Comment [facility] Comment on above: Progesterone Referen ce Table: UNITS Female: Follicular 0.15 - 1.40 ng/mL Luteal 3.34 - 25.56 ng/mL Mid-luteal 4.44 - 28.03 ng/mL Postmenopausal 0.0 - 0.73 ng/mL : 1st Trimester 11.22 - 90.00 ng/mL 2nd Trimester 25.55 - 89.40 ng/mL 3rd Trimester 48.40 -422.50 ng/mL Serum or plasma sex hormone binding globulin measurement (moles/volume)Ordered By: Jesus Manuel Burris on 09-26-2023 Sex hormone binding globulin [Moles/Vol] 93.1 nmol/L 24.6-122.0 [facility] Comment on above: Performed at: [employer] [address] [id number] Director: Jordan Duncan PhD, Phone: [phone] at: [facility] [address] [id number] Director: Daisha Fatima MD, Phone: [phone] Serum or plasma testosterone free measurement (mass/volume)Ordered By: Jesus Manuel Burris on 09-26-2023 Testosterone Free [Mass/Vol] 0.05 ng/dL 0.10-0.85 [facility] Whole blood hemoglobin A1c/t otal hemoglobin ratio (mass fraction)Ordered By: Jesus Manuel Burris on 09-26-2023 HbA1c (Bld) [Mass fraction] 5.0 % 3.8-5.6 [facility] Comment on above: Normal < 5.7 % Predi abetic 5.7 - 6.4 % Diabetic >or= 6.5 % Please note range changes. Anaerobic cultureOrdered By: Brenton Gifford on 03-19-2023 Bacteria identified Anaer cx Nom (Unsp spec) No growth in 5 days. [facility] Bacteria identified Cx Nom ( Wound)Ordered By: Brenton Gifford on 03-19-2023 Wound Culture Streptococcus parasanguinis [facility] Gram stain for investigation of transfusion reactionOrdered By: Brenton Gifford on 03-19-2023 Microscopic observation Gram stain Nom (Unsp spec) [facility] Absolute lymphocyte countOrd ered By: Kartik Padgett on 02-12-2023 Lymphocytes Auto (Unsp spec) [#/Vol] 1.93 10*3/uL 0.83-4.51 [facility] Basophil percentageOrdered B y: Kartik Leroy on 02-12-2023 Basophils/100 WBC (Bld) 0.9 % 0-1 [facility] Bilirubin [Mass/Vol] 0.40 mg/dL 0.20-1.00 [facility] Comment on above: For patients on eltr ombopag therapy, use of Dimension [place] TBIL is not recommended. Chloride [Moles/Vol] 109 mmol/L 98-107 [facility] Cholesterol [Mass/Vol] 191 mg/dL <200 [facility] Comment on above: <200 mg/dL Desirable 200-240 mg/dL Borderline >240 mg/dL High Risk Eosinophils/100 WBC (Bld) 2.4 % 0-5 [facility] Glucose [Mass/Vol] 83 mg/dL 74-106 [facility] Neutrophils (Bld) [#/Vol] 3.2 10*3/uL 2.0-7.7 [facility] Neutrophils/100 WBC (Bld) 55.0 % 47-70 [facility] Potassium [Moles/Vol] 3.7 mmol/L 3.5-5.1 [facility] Protein [Mass/Vol] 7.4 g/dL 6.4-8.2 [facility] Sodium [Moles/Vol] 140 mmol/L 136-145 [facility] Triglyceride [Mass/Vol] 62 mg/dL <199 [facility] Comment on above: The drugs N-Acetylcy steine and Metamizole may falsely depress this assay.Serum Triglycerides Reference Interval Normal <150 mg/dL Borderline high 150 - 199 mg/dL High 200 - 499 mg/dL Very High > or = 500 mg/dL WBC (Bld) [#/Vol] 5.8 10*3/uL 4.4-11.0 [facility] Blood erythrocytes count (nu mber/volume)Ordered By: Kartik Padgett on 02-12-2023 RBC (Bld) [#/Vol] 4.44 10*6/uL 4.2-5.4 [facility] Blood hemoglobin measurement (mass/volume)Ordered By: Kartik Padgett on 02-12-2023 Hemoglobin (Bld) [Mass/Vol] 13.2 g/dL 12.0-15.0 [facility] Blood lymphocytes/100 leukoc ytesOrdered By: Kartik Padgett on 02-12-2023 Lymphocytes/100 WBC (Bld) 33.5 % 19-41 [facility] Blood monocytes/100 leukocyt esOrdered By: Kartik Padgett on 02-12-2023 Monocytes/100 WBC (Bld) 8.0 % 0-10 [facility] Blood platelet mean volumeOr dered By: Kartik Padgett on 02-12-2023 Platelet mean volume (Bld) [Entitic vol] 9.1 fL 6.2-12.0 [facility] Determination of erythrocyte mean corpuscular volume (MCV)Ordered By: Kartik Padgett on 02-12-2023 MCV (RBC) [Entitic vol] 89.9 fL 81-99 [facility] Hematocrit Auto (Bld) [Volum e fraction]Ordered By: Kartik Padgett on 02-12-2023 Hematocrit (Bld) [Volume fraction] 39.9 % 37-47 [facility] Laboratory - Chemistry and C hemistry - challengeOrdered By: Kartik Padgett on 02-12-2023 ALP [Catalytic activity/Vol] 69 U/L 45-117 [facility] ALT [Catalytic activity/Vol] 19 U/L 13-56 [facility] CO2 [Moles/Vol] 30.0 mmol/L 21.0-32.0 [facility] Cobalamin (Vitamin B12) [Mass/Vol] 662 pg/mL 211-911 [facility] Globulin (S) [Mass/Vol] 3.3 g/dL 2.2-4.2 [facility] Urea nitrogen/Creatinine [Mass ratio] 18.9 mg/mg 10-20 [facility] Laboratory - Hematology and Cell countsOrdered By: Kartik Padgett on 02-12-2023 Erythrocyte distribution width (RBC) [Entitic vol] 39.4 fL 35.1-43.9 [facility] Erythrocyte distribution width (RBC) [Ratio] 12.0 % 11.6-14.6 [facility] Immature granulocytes/100 WBC (Bld) 0.200 % 0.0-0.9 [facility] Comment on above: IG% - Immature Granu locytes (promyelocytes, myelocytes and metamyelocytes) > 1% indicates that a LEFT SHIFT is Present. MCH (RBC) [Entitic mass] 29.7 pg 27.0-32.0 [facility] Nucleated RBC/100 WBC (Bld) [Ratio] 0 % 0-5 [facility] MCHC Auto (RBC) [Mass/Vol]Or dered By: Kartik Padgett on 02-12-2023 MCHC (RBC) [Mass/Vol] 33.1 g/dL 32-36 [facility] No Panel InformationOrdered By: Kartik Padgett on 02-12-2023 Estimated GFR (MDRD) Amer 102 mL/min >60 [facility] Comment on above: GFR Calc Estimated GFR (MDRD) Non-Af Amer 84 mL/min >60 [facility] Comment on above: Non- GFR Calc Thyroid Stimulating Hormone (TSH) 0.88 uIU/mL 0.358-3.74 [facility] Vitamin D 25-Hydroxy 37.1 ng/mL [facility] Comment on above: Vitamin D 25(OH) Sta tus Range Deficiency <20 ng/mL (50nmol/L) Insufficiency 20 - 30 ng/mL (50 - 75 nmol/L) Sufficiency 30 - 100 ng/mL (75 - 250 nmol/L) Toxicity >100 ng/mL (>250 nmol/L) Platelets bldOrdered By: Riana Padgett on 02-12-2023 Platelets (Bld) [#/Vol] 317 10*3/uL 150-450 [facility] Serum or plasma albumin tyrell urement (mass/volume)Ordered By: Kartik Padgett on 02-12-2023 Albumin [Mass/Vol] 4.1 g/dL 3.2-5.0 [facility] Serum or plasma albumin/glob ulin mass ratioOrdered By: Kartik Padgett on 02-12-2023 Albumin/Globulin [Mass ratio] 1.2 {ratio} 0.9-2.4 [facility] Serum or plasma calcium tyrell urement (mass/volume)Ordered By: Kartik Padgett on 02-12-2023 Calcium [Mass/Vol] 8.8 mg/dL 8.5-10.1 [facility] Serum or plasma cholesterol in HDL measurement (mass/volume)Ordered By: Kartik Padgett on 02-12-2023 Cholesterol in HDL [Mass/Vol] 64 mg/dL >40 [facility] Comment on above: The drugs N-Acetylcy steine and Metamizole may falsely depress this assay. Reference Range HDL <40 mg/dL Low HDL Cholesterol HDL >or= 60 mg/dL High HDL Cholesterol Serum or plasma cholesterol in VLDL measurement (mass/volume)Ordered By: Kartik Padgett on 02-12-2023 Cholesterol in VLDL [Mass/Vol] 12 mg/dL 5-40 [facility] Serum or plasma creatinine m easurement (mass/volume)Ordered By: Kartik Padgett on 02-12-2023 Creatinine [Mass/Vol] 0.79 mg/dL 0.55-1.02 [facility] Comment on above: The validity of the calculated GFR & GFRAA in patients over 70 years has not been determined. Clinical correlation is essential. Serum or plasma low density lipoprotein (LDL) cholesterol measurement (mass/volume)Ordered By: Kartik Padgett on 02-12-2023 Cholesterol in LDL [Mass/Vol] 115 mg/dL 0-130 [facility] Serum or plasma urea nitroge n measurement (mass/volume)Ordered By: Kartik Padgett on 02-12-2023 Urea nitrogen [Mass/Vol] 15 mg/dL 7-18 [facility] Thin prep Papanicolaou smear with manual screeningOrdered By: Kartik Padgett on 02-12-2023 Thin prep Papanicolaou smear with manual screening 11 U/L 15-37 [facility] Thin prep Papanicolaou smear with manual screening 1 5-15 [facility] Absolute lymphocyte counton 11-29-2021 Lymphocytes Auto (Unsp spec) [#/Vol] 1.85 10*3/uL 0.83-4.51 [facility] Work Phone: Basophil percentageon 2021 Basophils/100 WBC (Bld) 1.1 % 0-1 [facility] Work Phone: Bilirubin [Mass/Vol] 0.50 mg/dL 0.20-1.00 [facility] Work Phone: Comment on above: For patients on eltr ombopag therapy, use of Dimension [place] TBIL is not recommended. Chloride [Moles/Vol] 107 mmol/L 98-107 [facility] Work Phone: [phone] Cholesterol [Mass/Vol] 181 mg/dL <[address] [facility] Work Phone: [phone] Comment on above: <200 mg/dL Desirable 200-240 mg/dL Borderline >240 mg/dL High Risk Eosinophils/100 WBC (Bld) 2.5 % 0-5 [facility] Work Phone: [phone] Glucose [Mass/Vol] 97 mg/dL 74-106 [facility] Work Phone: [phone] Neutrophils (Bld) [#/Vol] 3.2 10*3/uL 2.0-7.7 [facility] Work Phone: [phone] Neutrophils/100 WBC (Bld) 56.0 % 47-70 [facility] Work Phone: [phone] Potassium [Moles/Vol] 4.2 mmol/L 3.5-5.1 [facility] Work Phone: Protein [Mass/Vol] 7.0 g/dL 6.4-8.2 [facility] Work Phone: [phone] Sodium [Moles/Vol] 139 mmol/L 136-145 [facility] Work Phone: Triglyceride [Mass/Vol] 79 mg/dL <199 [facility] Work Phone: Comment on above: The drugs N-Acetylcy steine and Metamizole may falsely depress this assay.Serum Triglycerides Reference Interval Normal <150 mg/dL Borderline high 150 - 199 mg/dL High 200 - 499 mg/dL Very High > or = 500 mg/dL WBC (Bld) [#/Vol] 5.7 10*3/uL 4.4-11.0 [facility] Work Phone: Blood erythrocytes count (nu mber/volume)on 11-29-2021 RBC (Bld) [#/Vol] 4.57 10*6/uL 4.2-5.4 [facility] Work Phone: Blood hemoglobin measurement (mass/volume)on 11-29-2021 Hemoglobin (Bld) [Mass/Vol] 13.4 g/dL 12.0-15.0 [facility] Work Phone: Blood lymphocytes/100 leukoc yteson 11-29-2021 Lymphocytes/100 WBC (Bld) 32.6 % 19-41 [facility] Work Phone: Blood monocytes/100 leukocyt eson 11-29-2021 Monocytes/100 WBC (Bld) 7.4 % 0-10 [facility] Work Phone: Blood platelet mean volumeon 11-29-2021 Platelet mean volume (Bld) [Entitic vol] 10.3 fL 6.2-12.0 [facility] Work Phone: Determination of erythrocyte mean corpuscular volume (MCV)on 11-29-2021 MCV (RBC) [Entitic vol] 91.5 fL 81-99 [facility] Work Phone: Hematocrit Auto (Bld) [Volum e fraction]on 11-29-2021 Hematocrit (Bld) [Volume fraction] 41.8 % 37-47 [facility] Work Phone: Laboratory - Chemistry and C hemistry - challengeon 11-29-2021 ALP [Catalytic activity/Vol] 66 U/L 45-117 [facility] Work Phone: ALT [Catalytic activity/Vol] 26 U/L 13-56 [facility] Work Phone: CO2 [Moles/Vol] 28.0 mmol/L 21.0-32.0 [facility] Work Phone: Globulin (S) [Mass/Vol] 3.2 g/dL 2.2-4.2 [facility] Work Phone: Urea nitrogen/Creatinine [Mass ratio] 14.8 mg/mg 10-20 [facility] Work Phone: Laboratory - Hematology and Cell countson 11-29-2021 Erythrocyte distribution width (RBC) [Entitic vol] 42.3 fL 35.1-43.9 [facility] Work Phone: Erythrocyte distribution width (RBC) [Ratio] 12.8 % 11.6-14.6 [facility] Work Phone: Immature granulocytes/100 WBC (Bld) 0.400 % 0.0-0.9 [facility] Work Phone: Comment on above: IG% - Immature Granu locytes (promyelocytes, myelocytes and metamyelocytes) > 1% indicates that a LEFT SHIFT is Present. MCH (RBC) [Entitic mass] 29.3 pg 27.0-32.0 [facility] Work Phone: Nucleated RBC/100 WBC (Bld) [Ratio] 0 % 0-5 [facility] Work Phone: MCHC Auto (RBC) [Mass/Vol]on 11-29-2021 MCHC (RBC) [Mass/Vol] 32.1 g/dL 32-36 [facility] Work Phone: No Panel Informationon 11-29 Estimated GFR (MDRD) Amer 100 mL/min >60 [facility] Work Phone: Comment on above: GFR Calc Estimated GFR (MDRD) Non-Af Amer 83 mL/min >60 [facility] Work Phone: Comment on above: Non- GFR Calc Platelets bldon 11-29-2021 Platelets (Bld) [#/Vol] 275 10*3/uL 150-450 [facility] Work Phone: Serum or plasma albumin tyrell urement (mass/volume)on 11-29-2021 Albumin [Mass/Vol] 3.8 g/dL 3.2-5.0 [facility] Work Phone: Serum or plasma albumin/glob ulin mass ratioon 11-29-2021 Albumin/Globulin [Mass ratio] 1.2 {ratio} 0.9-2.4 [facility] Work Phone: Serum or plasma calcium tyrell urement (mass/volume)on 11-29-2021 Calcium [Mass/Vol] 8.8 mg/dL 8.5-10.1 [facility] Work Phone: Serum or plasma cholesterol in HDL measurement (mass/volume)on 11-29-2021 Cholesterol in HDL [Mass/Vol] 71 mg/dL >40 [facility] Work Phone: Comment on above: The drugs N-Acetylcy steine and Metamizole may falsely depress this assay. Reference Range HDL <40 mg/dL Low HDL Cholesterol HDL >or= 60 mg/dL High HDL Cholesterol Serum or plasma cholesterol in VLDL measurement (mass/volume)on 11-29-2021 Cholesterol in VLDL [Mass/Vol] 16 mg/dL 5-40 [facility] Work Phone: Serum or plasma creatinine m easurement (mass/volume)on 11-29-2021 Creatinine [Mass/Vol] 0.81 mg/dL 0.55-1.02 [facility] Work Phone: Comment on above: The validity of the calculated GFR & GFRAA in patients over 70 years has not been determined. Clinical correlation is essential. Serum or plasma low density lipoprotein (LDL) cholesterol measurement (mass/volume)on 11-29-2021 Cholesterol in LDL [Mass/Vol] 94 mg/dL 0-130 [facility] Work Phone: Serum or plasma urea nitroge n measurement (mass/volume)on 11-29-2021 Urea nitrogen [Mass/Vol] 12 mg/dL 7-18 [facility] Work Phone: Thin prep Papanicolaou smear with manual screeningon 11-29-2021 Thin prep Papanicolaou smear with manual screening 16 U/L 15-37 [facility] Work Phone: Thin prep Papanicolaou smear with manual screening 4 5-15 [facility] Work Phone: Whole blood hemoglobin A1c/t otal hemoglobin ratio (mass fraction)on 11-29-2021 HbA1c (Bld) [Mass fraction] 5.4 % 3.8-5.6 [facility] Work Phone: Comment on above: Normal < 5.7 % Predi abetic 5.7 - 6.4 % Diabetic >or= 6.5 % Please note range changes. RUBEOon 02-23-2021 Rubeola IgG Ab Negative Normal [facility] ([place]) Comment on above: Result Comment: INTE RPRETATION OF RUBEOLA (MEASLES) IGG BY EIA: Negative Nonreactive (Negative) for anti-Rubeola IgG. Presumed non-immune to measles virus. Positive Reactive (Positive) for anti-Rubeola IgG. Presumed immune to measles virus. Equivocal Repeat testing if still indicated. Performed By: #### H BSAB, RUBIS, VARIS, RUBEO #### [place] [address] VARISon 02-22-[address] Positive Normal [facility] ([place]) Comment on above: Result Comment: This immune status assay detects antibody to Varicella Zoster virus. Interpret results in conjunction with clinical history. Positive: Reactive for antibodies to Varicella IgG. If clinically indicated, order Varicella IGM to rule out recent infection. Equivocal: Equivocal for antibodies to Varicella IgG. Suggest repeat testing in 10-14 days. Negative: Non-reactive for antibodies to Varicella IgG. Performed By: #### H BSAB, RUBIS, VARIS, RUBEO #### [place] [address] RUBISon 02-19-[address] Positive Normal Positive [facility] ([place]) Comment on above: Result Comment: This immune status assay detects IgM and/or IgG antibody to Rubella. Interpret results in conjunction with clinical history. POS: Antibody detected; exposure at undetermined recent or distant time. If clinically indicated, order Rubella IGM to rule out recent infection. NEG: No antibody detected. Performed By: #### H BSAB, RUBIS, VARIS, RUBEO #### [place] [address] HBSABon 02-18-2021 Hep B Surf Ab 12.4 mIU/mL Normal >=10.0 [facility] ([place]) Comment on above: Result Comment: 0 to < 10.0 mIU/mL Nonreactive Patient is considered not to have protective immunity to HBV infection >/= 10.0 mIU/mL Reactive Patient is considered to have protective immunity to HBV infection. This assay is traceable to the World Health Organization (WHO) Hepatitis B Immunoglobulin 1st International Reference Preparation (1976). The accepted criteria for immunity to HBV is anti-HBs activity >/= 10.0 mIU/mL, as defined by the WHO International Reference Preparation. Performed By: #### H DWAYNE FLOYD VARIS, RUBEO #### [address] [address] SARS-COV-2 ANTIBODY, IGGon 0 01-06-2021 SARS-CoV-2 (COVID-19) IgG IA.rapid Ql (S/P/Bld) Negative Normal Negative [facility] Comment on above: Result Comment: No S ARS-CoV-2 IgG antibodies detected. In infected individuals negative results may occur before IgG seroconversion, or in immunosuppressed patients. Negative results should not be used to exclude active or recent COVID-19. This test was performed under the FDA's Emergency Use Authorization (EUA). Testing was performed using the DiaProte[employer] Agilityrin CLIA methodology. Fact sheets for this EUA can be found at the following links: For Healthcare Providers: https://www.fda.gov/media/046861/download For Patients: https://www.fda.gov/media/087603/download Performed By: #### 3 2001 #### [facility] [address] [place] [address] Eddi Griffin M.D. [id number] MM BREAST SPECIMENon 021 MM BREAST SPECIMEN EXAMINATION: RIGHT BREAST SPECIMEN RADIOGRAPH HISTORY: Patient had a biopsy of a mass in the 2 o'clock right breast with pathology demonstrating a fibroepithelial lesion. Excision performed without radiology guidance. COMPARISON: Ultrasound-guided right breast biopsy and post biopsy mammogram 08/27/2020. FINDINGS: A single specimen was imaged and 2 images were obtained of the specimen. The specimen contains the mass and the biopsy marking clip; there is normal tissue that surrounds some of the mass, although part of the mass approaches the edge of the tissue. This was marked on PACs for pathology. IMPRESSION: Specimen radiograph contains the mass and marking clip. BIRADS: Code ZW - Awaiting further pathology. [facility]/jcw Workstation ID: [id number] Dictated by: TENA GAN on SunOctober 05, 2020 2:04:26 PM EDT Transcribed by: ANSELMO KIM on SunOctober 05, 2020 2:10:23 PM EDT Finalized by: TENA GAN on SunOctober 05, 2020 2:28:33 PM EDT Normal [facility] COVID-19, MOLECULARon 2020 SARS-CoV-2 (COVID-19) RNA GIOVANNY+probe Ql (Unsp spec) Not detected Normal Not Detected [facility] Comment on above: Order Comment: : COV ID-19 Lab Test Only (OP in UTM) Result Comment: This test was performed under the FDA's Emergency Use Authorization (EUA). Testing was performed using the Arsenio SARS-CoV-2 RT-PCR assay on the Luis Arsenio 6800 System. This test has not been approved for use in asymptomatic patients and its performance in this patient population has not been evaluated. Negative results do not rule out the presence of SARS-CoV-2/COVID-19. Fact sheets for this EUA can be found at the following links: For Healthcare Providers: https://www.fda.gov/media/390878/download For Patients: https://www.fda.gov/media/500456/download Performed By: #### L [id number] #### [facility] [address] [place] [address] Eddi Griffin M.D. [id number] MM FOLLOW UP POST CLIP PLACE MENTon 08-27-2020 MM FOLLOW UP POST CLIP PLACEMENT EXAMINATION: US BREAST RIGHT LIMITED; MM FOLLOW UP POST CLIP PLACEMENT; US BREAST BIOPSY RIGHT HISTORY: 2 cm indeterminate mass 2 o'clock right breast on baseline imaging with biopsy requested for definitive evaluation. COMPARISON: Bilateral breast MRI 08/24/2020; mammogram and right breast ultrasound 08/19/2020. FINDINGS: Targeted right breast ultrasound performed in region of known mass 2 o'clock zone B/C position. There is an oval, hypoechoic circumscribed mass measuring 1.8 x 0.8 x 1.4 cm. Biopsy will be performed today for definitive evaluation. No adenopathy in the right axilla. TECHNIQUE: Informed consent obtained for right breast biopsy with clip placement. Risks of procedure to include pain, bleeding, infection and possible implant rupture discussed. Pause and confirm performed. Mass localized with ultrasound. Skin was cleansed and 1% lidocaine used for local skin anesthesia. Small skin madie was made and multiple 14 gauge core biopsy specimens obtained. HydroMARK clip was left at the biopsy site. Postprocedure mammogram: ML and CC views of the right breast obtained. The clip is seen within the mass on the CC projection. Mass and clip are not visualized on the lateral view secondary to obscuration by implant. No immediate complication. IMPRESSION: 1. Status post right breast biopsy with pathology pending. 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 Since phyllodes is in the differential, surgical excision is recommended. Patient has surgical follow-up. Workstation ID: [id number] Dictated by: CAROLIN RAMIREZ on SunAug 27, 2020 2:10:22 PM EDT Transcribed by: CAROLIN RAMIREZ on SunAug 27, 2020 2:10:22 PM EDT Finalized by: CAROLIN RAMIREZ on SunAug 27, 2020 2:10:22 PM EDT [facility] 08-27-2020 1. Status post right breast biopsy with pathology pending. Workstation ID: [id number] [facility] EXAMINATION: US REUBEN ST RIGHT LIMITED; MM FOLLOW UP POST CLIP PLACEMENT; US BREAST BIOPSY RIGHT HISTORY: 2 cm indeterminate mass 2 o'clock right breast on baseline imaging with biopsy requested for definitive evaluation. COMPARISON: Bilateral breast MRI 08/24/2020; mammogram and right breast ultrasound 08/19/2020. FINDINGS: Targeted right breast ultrasound performed in region of known mass 2 o'clock zone B/C position. There is an oval, hypoechoic circumscribed mass measuring 1.8 x 0.8 x 1.4 cm. Biopsy will be performed today for definitive evaluation. No adenopathy in the right axilla. TECHNIQUE: Informed consent obtained for right breast biopsy with clip placement. Risks of procedure to include pain, bleeding, infection and possible implant rupture discussed. Pause and confirm performed. Mass localized with ultrasound. Skin was cleansed and 1% lidocaine used for local skin anesthesia. Small skin madie was made and multiple 14 gauge core biopsy specimens obtained. HydroMARK clip was left at the biopsy site. Postprocedure mammogram: ML and CC views of the right breast obtained. The clip is seen within the mass on the CC projection. Mass and clip are not visualized on the lateral view secondary to obscuration by implant. No immediate complication. [facility] Interface, Rad In Fu ji Speechq - 08/27/2020 2:13 PM EDT EXAMINATION: US BREAST RIGHT LIMITED; MM FOLLOW UP POST CLIP PLACEMENT; US BREAST BIOPSY RIGHT HISTORY: 2 cm indeterminate mass 2 o'clock right breast on baseline imaging with biopsy requested for definitive evaluation. COMPARISON: Bilateral breast MRI 08/24/2020; mammogram and right breast ultrasound 08/19/2020. FINDINGS: Targeted right breast ultrasound performed in region of known mass 2 o'clock zone B/C position. There is an oval, hypoechoic circumscribed mass measuring 1.8 x 0.8 x 1.4 cm. Biopsy will be performed today for definitive evaluation. No adenopathy in the right axilla. TECHNIQUE: Informed consent obtained for right breast biopsy with clip placement. Risks of procedure to include pain, bleeding, infection and possible implant rupture discussed. Pause and confirm performed. Mass localized with ultrasound. Skin was cleansed and 1% lidocaine used for local skin anesthesia. Small skin madie was made and multiple 14 gauge core biopsy specimens obtained. HydroMARK clip was left at the biopsy site. Postprocedure mammogram: ML and CC views of the right breast obtained. The clip is seen within the mass on the CC projection. Mass and clip are not visualized on the lateral view secondary to obscuration by implant. No immediate complication. IMPRESSION: 1. Status post right breast biopsy with pathology pending. Workstation ID: [id number] [facility] US BREAST BIOPSY RIGHTon US BREAST BIOPSY RIGHT EXAMINATION: US BREAST RIGHT LIMITED; MM FOLLOW UP POST CLIP PLACEMENT; US BREAST BIOPSY RIGHT HISTORY: 2 cm indeterminate mass 2 o'clock right breast on baseline imaging with biopsy requested for definitive evaluation. COMPARISON: Bilateral breast MRI 08/24/2020; mammogram and right breast ultrasound 08/19/2020. FINDINGS: Targeted right breast ultrasound performed in region of known mass 2 o'clock zone B/C position. There is an oval, hypoechoic circumscribed mass measuring 1.8 x 0.8 x 1.4 cm. Biopsy will be performed today for definitive evaluation. No adenopathy in the right axilla. TECHNIQUE: Informed consent obtained for right breast biopsy with clip placement. Risks of procedure to include pain, bleeding, infection and possible implant rupture discussed. Pause and confirm performed. Mass localized with ultrasound. Skin was cleansed and 1% lidocaine used for local skin anesthesia. Small skin madie was made and multiple 14 gauge core biopsy specimens obtained. HydroMARK clip was left at the biopsy site. Postprocedure mammogram: ML and CC views of the right breast obtained. The clip is seen within the mass on the CC projection. Mass and clip are not visualized on the lateral view secondary to obscuration by implant. No immediate complication. IMPRESSION: 1. Status post right breast biopsy with pathology pending. 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 Since phyllodes is in the differential, surgical excision is recommended. Patient has surgical follow-up. Workstation ID: [id number] Dictated by: CAROLIN RAMIREZ on SunAug 27, 2020 2:10:22 PM EDT Transcribed by: CAROLIN RAMIREZ on SunAug 27, 2020 2:10:22 PM EDT Finalized by: CAROLIN RAMIREZ on SunAug 27, 2020 2:10:22 PM EDT [facility] Comment on above: Order Comment: Injur y/Trauma or Illness?:Illness/Other How long have you had these symptoms (acute/chronic)?:Acute Reason for exam?:RIGHT BREAST BIOPSY Type of Exam?:Initial Additional signs and symptoms?:N US BREAST RIGHT LIMITEDon US BREAST RIGHT LIMITED EXAMINATION: US BREAST RIGHT LIMITED; MM FOLLOW UP POST CLIP PLACEMENT; US BREAST BIOPSY RIGHT HISTORY: 2 cm indeterminate mass 2 o'clock right breast on baseline imaging with biopsy requested for definitive evaluation. COMPARISON: Bilateral breast MRI 08/24/2020; mammogram and right breast ultrasound 08/19/2020. FINDINGS: Targeted right breast ultrasound performed in region of known mass 2 o'clock zone B/C position. There is an oval, hypoechoic circumscribed mass measuring 1.8 x 0.8 x 1.4 cm. Biopsy will be performed today for definitive evaluation. No adenopathy in the right axilla. TECHNIQUE: Informed consent obtained for right breast biopsy with clip placement. Risks of procedure to include pain, bleeding, infection and possible implant rupture discussed. Pause and confirm performed. Mass localized with ultrasound. Skin was cleansed and 1% lidocaine used for local skin anesthesia. Small skin madie was made and multiple 14 gauge core biopsy specimens obtained. HydroMARK clip was left at the biopsy site. Postprocedure mammogram: ML and CC views of the right breast obtained. The clip is seen within the mass on the CC projection. Mass and clip are not visualized on the lateral view secondary to obscuration by implant. No immediate complication. IMPRESSION: 1. Status post right breast biopsy with pathology pending. 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 Since phyllodes is in the differential, surgical excision is recommended. Patient has surgical follow-up. Workstation ID: [id number] Dictated by: CAROLIN RAMIREZ on SunAug 27, 2020 2:10:22 PM EDT Transcribed by: CAROLIN RAMIREZ on SunAug 27, 2020 2:10:22 PM EDT Finalized by: CAROLIN RAMIREZ on SunAug 27, 2020 2:10:22 PM EDT Normal [facility] COMPARISON IMPORTon 08-25 This order has been auto-finalized and does not contain a result. [facility] US COMPARISON IMPORTon 08-25 This order has been auto-finalized and does not contain a result. [facility] MR BREAST BILATERAL WITH AND WITHOUT CONTRASTon 08-24-2020 1. 2 cm mass 2 o'[place] ck middle 3rd right breast is indeterminate for malignancy requiring biopsy for definitive evaluation. Mass is amenable to stereotactic biopsy given this was seen mammographically. Alternately, second-look ultrasound could be performed to determine if this modality can guide tissue sampling. 2. No MR evidence of malignancy in the left breast. BIRADS - CATEGORY 6 - Known biopsy proven malignancy. Appropriate action should be taken. OVERALL ASSESSMENT - KNOWN BIOPSY PROVEN MALIGNANCY. Workstation ID: [id number] [facility] EXAMINATION: MR BREAST BILATERAL WITH AND WITHOUT CONTRAST HISTORY: intermediate mammogram-discordant US findingsDx: R92.8 (Follow-up examination of abnormal mammogram) Baseline mammogram described mammographic mass in the right 2 o'clock position without ultrasound correlate, categorized as probably benign. COMPARISON: Mammogram and right breast ultrasound 08/19/2020. TECHNIQUE: Sagittal and axial imaging obtained through the breasts before and after contrast administration utilizing multiple pulse sequences. 17 mL Dotarem intravenously administered in a single dosage. [employer] CAD utilized in the interpretation of this exam. FINDINGS: Intact subpectoral silicone implants are in place bilaterally. Heterogeneously dense fibroglandular tissue is present. Few subcentimeter cysts are seen bilaterally on the inversion recovery sequence. Mild background enhancement after contrast administration with scattered foci suggesting benign fibrocystic change. No suspicious mass or non masslike enhancement is seen in the left breast. No adenopathy in the left axilla. In the 2 o'clock right breast, beginning 6.9 cm posterior to the nipple, there is an oval, smoothly marginated, heterogeneously enhancing mass with type 1 kinetics measuring 2.0 x 1.1 x 1.2 cm. Mass is considered of low suspicion for malignancy with biopsy indicated for definitive evaluation. No other suspicious enhancement in the remainder of the right breast. No adenopathy in the right axilla. No lymph nodes are seen along the internal mammary lymph node chains. [facility] Interface, Rad In Fu ji Speechq - 08/24/2020 2:02 PM EDT EXAMINATION: MR BREAST BILATERAL WITH AND WITHOUT CONTRAST HISTORY: intermediate mammogram-discordant US findingsDx: R92.8 (Follow-up examination of abnormal mammogram) Baseline mammogram described mammographic mass in the right 2 o'clock position without ultrasound correlate, categorized as probably benign. COMPARISON: Mammogram and right breast ultrasound 08/19/2020. TECHNIQUE: Sagittal and axial imaging obtained through the breasts before and after contrast administration utilizing multiple pulse sequences. 17 mL Dotarem intravenously administered in a single dosage. [employer] CAD utilized in the interpretation of this exam. FINDINGS: Intact subpectoral silicone implants are in place bilaterally. Heterogeneously dense fibroglandular tissue is present. Few subcentimeter cysts are seen bilaterally on the inversion recovery sequence. Mild background enhancement after contrast administration with scattered foci suggesting benign fibrocystic change. No suspicious mass or non masslike enhancement is seen in the left breast. No adenopathy in the left axilla. In the 2 o'clock right breast, beginning 6.9 cm posterior to the nipple, there is an oval, smoothly marginated, heterogeneously enhancing mass with type 1 kinetics measuring 2.0 x 1.1 x 1.2 cm. Mass is considered of low suspicion for malignancy with biopsy indicated for definitive evaluation. No other suspicious enhancement in the remainder of the right breast. No adenopathy in the right axilla. No lymph nodes are seen along the internal mammary lymph node chains. IMPRESSION: 1. 2 cm mass 2 o'clock middle 3rd right breast is indeterminate for malignancy requiring biopsy for definitive evaluation. Mass is amenable to stereotactic biopsy given this was seen mammographically. Alternately, second-look ultrasound could be performed to determine if this modality can guide tissue sampling. 2. No MR evidence of malignancy in the left breast. BIRADS - CATEGORY 6 - Known biopsy proven malignancy. Appropriate action should be taken. OVERALL ASSESSMENT - KNOWN BIOPSY PROVEN MALIGNANCY. Workstation ID: [id number] [facility] MR BREAST BILATERAL WITH AND WITHOUT CONTRAST REVISED REPORT: EXAMINATION: MR BREAST BILATERAL WITH AND WITHOUT CONTRAST HISTORY: intermediate mammogram-discordant US findingsDx: R92.8 (Follow-up examination of abnormal mammogram) Baseline mammogram described mammographic mass in the right 2 o'clock position without ultrasound correlate, categorized as probably benign. COMPARISON: Mammogram and right breast ultrasound 08/19/2020. TECHNIQUE: Sagittal and axial imaging obtained through the breasts before and after contrast administration utilizing multiple pulse sequences. 17 mL Dotarem intravenously administered in a single dosage. Livia CAD utilized in the interpretation of this exam. FINDINGS: Intact subpectoral silicone implants are in place bilaterally. Heterogeneously dense fibroglandular tissue is present. Few subcentimeter cysts are seen bilaterally on the inversion recovery sequence. Mild background enhancement after contrast administration with scattered foci suggesting benign fibrocystic change. No suspicious mass or non masslike enhancement is seen in the left breast. No adenopathy in the left axilla. In the 2 o'clock right breast, beginning 6.9 cm posterior to the nipple, there is an oval, smoothly marginated, heterogeneously enhancing mass with type 1 kinetics measuring 2.0 x 1.1 x 1.2 cm. Mass is considered of low suspicion for malignancy with biopsy indicated for definitive evaluation. No other suspicious enhancement in the remainder of the right breast. No adenopathy in the right axilla. No lymph nodes are seen along the internal mammary lymph node chains. IMPRESSION: 1. 2 cm mass 2 o'clock middle 3rd right breast is indeterminate for malignancy requiring biopsy for definitive evaluation. Mass is amenable to stereotactic biopsy given this was seen mammographically. Alternately, second-look ultrasound could be performed to determine if this modality can guide tissue sampling. 2. No MR evidence of malignancy in the left breast. Category 4A - Low suspicion for malignancy. Findings demonstrate a suspicious abnormality. Biopsy should be considered at this time. OVERALL ASSESSMENT - SUSPICIOUS Workstation ID: [id number] Dictated by: CAROLIN RAMIREZ on SunAug 24, 2020 2:00:29 PM EDT Transcribed by: CAROLIN RAMIREZ on SunAug 24, 2020 2:00:29 PM EDT Finalized by: CAROLIN RAMIREZ on SunAug 24, 2020 2:00:[address] [facility] Comment on above: Order Comment: Injur y/Trauma or Illness?:Illness/Other How long have you had these symptoms (acute/chronic)?:Acute Reason for exam?:Abnormal Mammo @ [facility] x 1 week ago / was a routine scheduled exam not having any problems Type of Exam?:Initial Additional signs and symptoms?:na DIGITAL DIAG MAMM BILAT WITH TOMOon 08-19-2020 DIGITAL DIAG MAMM BILAT WITH RJ Patient Name: DO OLSON STUDY: Digital diagnostic mammogram bilateral with rj; 08/19/2020 9:05 am; 08/19/2020 8:55 am ACCESSION NUMBER(S): [id number]; [id number] ORDERING CLINICIAN: ANA MARIA BAKER INDICATION: Abnormal screening mammogram COMPARISON: Screening mammogram dated 08/13/2020 TECHNIQUE: Mammography: CC and MLO 2D digital mammograms and digital breast tomosynthesis images were obtained of the bilateral breasts. 3-D volume images were reconstructed in 4 views at an independent workstation as 1 mm slices through the breasts in both the CC and MLO projections. Ultrasound: Multiple grayscale ultrasonographic images were obtained through the right breast in the region of mammographic abnormality. FINDINGS: Mammography: There are areas of scattered fibroglandular tissue. There is a persistent rounded mass identified in the 2:00 position of the right breast at medium depth. No additional mass or focal asymmetry is identified. No suspicious microcalcifications or foci of architectural distortion are seen. Further evaluation with ultrasound was obtained. This study was interpreted with CAD. Ultrasound: No discrete mass or ultrasonographic abnormality is seen in the region of mammographic abnormality. IMPRESSION: Persistent mass on mammogram without ultrasonographic correlate. Recommendation is for follow-up examination in 6 months with right-sided diagnostic mammogram. BI-RADS CATEGORY: Category: 3 - Probably Benign. Recommendation: 6 Month Follow-up. Electronically signed by: ALEX VARGAS MD [facility] BREAST ULTRASOUNDon 08-19-2020 LIMITED BREAST ULTRASOUND Patient Name: DO OLSON STUDY: Digital diagnostic mammogram bilateral with rj; 08/19/2020 9:05 am; 08/19/2020 8:55 am ACCESSION NUMBER(S): [id number]; [id number] ORDERING CLINICIAN: ANA MARIA BAKER INDICATION: Abnormal screening mammogram COMPARISON: Screening mammogram dated 08/13/2020 TECHNIQUE: Mammography: CC and MLO 2D digital mammograms and digital breast tomosynthesis images were obtained of the bilateral breasts. 3-D volume images were reconstructed in 4 views at an independent workstation as 1 mm slices through the breasts in both the CC and MLO projections. Ultrasound: Multiple grayscale ultrasonographic images were obtained through the right breast in the region of mammographic abnormality. FINDINGS: Mammography: There are areas of scattered fibroglandular tissue. There is a persistent rounded mass identified in the 2:00 position of the right breast at medium depth. No additional mass or focal asymmetry is identified. No suspicious microcalcifications or foci of architectural distortion are seen. Further evaluation with ultrasound was obtained. This study was interpreted with CAD. Ultrasound: No discrete mass or ultrasonographic abnormality is seen in the region of mammographic abnormality. IMPRESSION: Persistent mass on mammogram without ultrasonographic correlate. Recommendation is for follow-up examination in 6 months with right-sided diagnostic mammogram. BI-RADS CATEGORY: Category: 3 - Probably Benign. Recommendation: 6 Month Follow-up. Electronically signed by: ALEX VARGAS MD Normal [facility] XR SHOULDER LEFT 2+ VIEWS (S TANDARD)on 07-20-2020 XR SHOULDER LEFT 2+ VIEWS (STANDARD) EXAMINATION: XR SHOULDER LEFT 2+ VIEWS (STANDARD) HISTORY: ORDERING SYSTEM PROVIDED HISTORY: range of motion, TECHNOLOGIST PROVIDED HISTORY: Illness/Other Reason for exam: no injury, left shoulder pain and difficulty abducting left arm. limited range of motion Cancer History: u Surgery, RadiationHistory: u Encounter Type: Initial Additional signs and symptoms: no ORDERING SYSTEM PROVIDED DIAGNOSIS CODES: M25.512 Acute pain of left shoulder COMPARISON: None. FINDINGS: Three views of the left shoulder. No acute fracture. Glenohumeral and acromioclavicular joints are anatomically aligned. Joint spaces are preserved. Soft tissues are within normal limits. IMPRESSION: No acute osseous abnormality. ST/lab Workstation ID: [id number] Dictated by: SHOSHANA RAINES on SunJul 20, 2020 4:43:40 PM EST Transcribed by: JAKY LIMA on SunJul 20, 2020 4:46:08 PM EST Finalized by: SHOSHANA RAINES on SunJul 20, 2020 6:48:38 PM EST Normal [facility] Comment on above: Order Comment: Injur y/Trauma or Illness?:Illness/Other How long have you had these symptoms (acute/chronic)?:Acute Reason for exam?:no injury, left shoulder pain and difficulty abducting left arm. limited range of motion History of cancer?:u Surgeries, chemotherapy, or radiation?:u Type of Exam?:Initial Additional signs and symptoms?:no COVID-19, MOLECULARon 2020 SARS-CoV-2 (COVID-19) RNA GIOVANNY+probe Ql (Unsp spec) Not detected Normal Not Detected [facility] Comment on above: Order Comment: : Dipesh l Swab COVID/Flu Lab Tests (OP in UTM/Dry) Result Comment: This test was performed under the FDA's Emergency Use Authorization (EUA). Testing was performed using the Arsenio SARS-CoV-2 assay on the Luis Arsenio 6800 System. This test has not been approved for use in asymptomatic patients and its performance in this patient population has not been evaluated. Negative results do not rule out the presence of SARS-CoV-2/COVID-19. Fact sheets for this EUA can be found at the following links: For Healthcare Providers: https://www.fda.gov/media/461042/download For Patients: https://www.fda.gov/media/851707/download Performed By: #### L [id number] #### [facility] [address] [place] [address] Eddi Griffin M.D. [id number] COVID-19, MOLECULARon 2019 SARS-CoV-2 (COVID-19) RNA GIOVANNY+probe Ql (Unsp spec) Not detected Normal Not Detected [facility] Comment on above: Result Comment: This test was performed under the FDA's Emergency Use Authorization (EUA). Testing was performed using the Arsenio SARS-CoV-2 assay on the Luis Arsenio 6800 System. This test has not been approved for use in asymptomatic patients and its performance in this patient population has not been evaluated. Negative results do not rule out the presence of SARS-CoV-2/COVID-19. Fact sheets for this EUA can be found at the following links: For Healthcare Providers: https://www.fda.gov/media/009907/download For Patients: https://www.fda.gov/media/577063/download Performed By: #### L [id number] #### [facility] [address] [place], [place] [id number] Eddi Griffin M.D. [id number] Free T4on 10-05-2017 T4 free mass conc 0.93 ng/dL Normal 0.58-1.64 [facility] Comment on above: Performed By: #### [id number] #### [facility] [address] [id number] TSHon 10-05-2017 Thyrotropin Qn 1.80 mIU/m Normal 0.30-5.60 [facility] Comment on above: Performed By: #### [id number] #### [facility] [employer] [address] [place] [address] Vital Signs Date Time Vital Sign Value Performing Clinician Facility 12-19-2024 07:03-0400 Body mass index (BMI) [Ratio] 25.37 kg/m2 Robyn Warner APRN.[employer] Work Phone: [facility] 12-19-2024 07:03-0400 Body weight 73.48 kg Robyn Warner APRN.[employer] Work Phone: [facility] 12-19-2024 07:03-0400 Diastolic blood pressure 76 mm[Hg] Robyn Warner APRN.[employer] Work Phone: [facility] 12-19-2024 07:03-0400 Heart rate 92 /min Robyn Warner APRN.[employer] Work Phone: [facility] 12-19-2024 07:03-0400 SaO2% (BldA) [Mass fraction] 98 % Robyn Warner APRN.[employer] Work Phone: [facility] 12-19-2024 07:03-0400 Systolic blood pressure 108 mm[Hg] Robyn Warner APRN.[employer] Work Phone: [facility] 09-25-2024 15:24-0400 Body mass index (BMI) [Ratio] 25.37 kg/m2 Robyn Warner APRN.[employer] Work Phone: [facility] 09-25-2024 15:24-0400 Body weight 73.48 kg Robyn Warner APRN.[employer] Work Phone: [facility] 09-25-2024 15:24-0400 Diastolic blood pressure 76 mm[Hg] Robyn Warner APRN.[employer] Work Phone: [facility] 09-25-2024 15:24-0400 Heart rate 65 /min Robyn Warner APRN.[employer] Work Phone: [facility] 09-25-2024 15:24-0400 SaO2% (BldA) [Mass fraction] 100 % Robyn Warner APRN.[employer] Work Phone: [facility] 09-25-2024 15:24-0400 Systolic blood pressure 116 mm[Hg] Robyn Warner APRN.[employer] Work Phone: [facility] 08-07-2024 15:20-0400 Body height 170.18 cm Kartik Padgett NP-C Work Phone: [facility] 07-03-2024 14:37-0500 Body mass index (BMI) [Ratio] 24.75 kg/m2 Robyn Warner APRN.[employer] Work Phone: [facility] 07-03-2024 14:37-0500 Body weight 71.67 kg Robyn Warner APRN.[employer] Work Phone: [facility] 07-03-2024 14:37-0500 Diastolic blood pressure 77 mm[Hg] Robyn Warner APRN.[employer] Work Phone: [facility] 07-03-2024 14:37-0500 Heart rate 95 /min Robyn Warner APRN.[employer] Work Phone: [facility] 07-03-2024 14:37-0500 SaO2% (BldA) [Mass fraction] 100 % Robyn Warner APRN.[employer] Work Phone: [facility] 07-03-2024 14:37-0500 Systolic blood pressure 113 mm[Hg] Robyn Warner APRN.[employer] Work Phone: [facility] 06-10-2024 08:15-0500 Body temperature 97.2 [degF] Kartik Padgett PROGRAM SUPPORT CLERK-C Work Phone: [facility] 06-10-2024 08:15-0500 Diastolic blood pressure 50 mm[Hg] Kartik Padgtet NP-C Work Phone: [facility] 06-10-2024 08:15-0500 Heart rate 73 /min Kartik Padgett PROGRAM SUPPORT CLERK-C Work Phone: [facility] 06-10-2024 08:15-0500 Respiratory rate 16 /min Kartik Padgett PROGRAM SUPPORT CLERK-C Work Phone: [facility] 06-10-2024 08:15-0500 SaO2% (BldA) [Mass fraction] 100 % Kartik Padgett PROGRAM SUPPORT CLERK-C Work Phone: [facility] 06-10-2024 08:15-0500 Systolic blood pressure 101 mm[Hg] Kartik Padgett PROGRAM SUPPORT CLERK-C Work Phone: [facility] 06-10-2024 06:13-0500 Body mass index (BMI) [Ratio] 25 kg/m2 Kartik Padgett PROGRAM SUPPORT CLERK-C Work Phone: [facility] 06-10-2024 06:13-0500 Body weight 72.3 kg Kartik Padgett PROGRAM SUPPORT CLERK-C Work Phone: [facility] 04-09-2024 11:47-0500 Body mass index (BMI) [Ratio] 24.43 kg/m2 Robyn Warner APRN.[employer] Work Phone: [facility] 04-09-2024 11:47-0500 Body weight 70.76 kg Robyn Warner APRN.[employer] Work Phone: [facility] 04-09-2024 11:47-0500 Diastolic blood pressure 76 mm[Hg] Robyn Warner APRN.[employer] Work Phone: [facility] 04-09-2024 11:47-0500 Heart rate 85 /min Robyn Warner APRN.[employer] Work Phone: [facility] 04-09-2024 11:47-0500 SaO2% (BldA) [Mass fraction] 97 % Robyn Warner APRN.[employer] Work Phone: [facility] 04-09-2024 11:47-0500 Systolic blood pressure 122 mm[Hg] Robyn Warner APRN.[employer] Work Phone: [facility] 02-13-2024 07:16-0400 Body mass index (BMI) [Ratio] 25.53 kg/m2 Robyn Warner APRN.[employer] Work Phone: [facility] 02-13-2024 07:16-0400 Body weight 73.94 kg Robyn Warner APRN.[employer] Work Phone: [facility] 02-13-2024 07:16-0400 Diastolic blood pressure 71 mm[Hg] Robyn Warner APRN.[employer] Work Phone: [facility] 02-13-2024 07:16-0400 Heart rate 92 /min Robyn Warner APRN.[employer] Work Phone: [facility] 02-13-2024 07:16-0400 Systolic blood pressure 110 mm[Hg] Robyn Warner APRN.[employer] Work Phone: [facility] 12-26-2023 06:58-0400 Body height 170.2 cm Robyn Warner APRN.[employer] Work Phone: [facility] 12-26-2023 06:58-0400 Body mass index (BMI) [Ratio] 25.18 kg/m2 Robyn Warner APRN.[employer] Work Phone: [facility] 12-26-2023 06:58-0400 Body weight 72.94 kg Robyn Warner APRN.[employer] Work Phone: [facility] 12-26-2023 06:58-0400 Diastolic blood pressure 62 mm[Hg] Robyn Warner APRN.[employer] Work Phone: [facility] 12-26-2023 06:58-0400 Heart rate 73 /min Robyn Warner APRN.[employer] Work Phone: [facility] 12-26-2023 06:58-0400 SaO2% (BldA) [Mass fraction] 99 % Robyn Warner APRN.[employer] Work Phone: [facility] 12-26-2023 06:58-0400 Systolic blood pressure 110 mm[Hg] Robyn Warner APRN.[employer] Work Phone: [facility] 11-23-2023 07:02-0400 Body height 170.2 cm Robyn Warner APRN.[employer] Work Phone: [facility] 11-23-2023 07:02-0400 Body mass index (BMI) [Ratio] 25.22 kg/m2 Robyn Warner APRN.[employer] Work Phone: [facility] 11-23-2023 07:02-0400 Body weight 73.03 kg Robyn Warner APRN.[employer] Work Phone: [facility] 11-23-2023 07:02-0400 Diastolic blood pressure 62 mm[Hg] Robyn Willoughbyhramalia TORRESN.[employer] Work Phone: [facility] 11-23-2023 07:02-0400 Systolic blood pressure 112 mm[Hg] Robyn Warner APRN.[employer] Work Phone: [facility] 10-02-2023 11:33-0400 Body mass index (BMI) [Ratio] 25.94 kg/m2 Robyn Warner GENERAL 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: [facility] 10-02-2023 11:33-0400 Body weight 75.12 kg Robyn Warner APRN.[employer] Work Phone: [facility] 10-02-2023 11:33-0400 Diastolic blood pressure 64 mm[Hg] Robyn Warner GENERAL 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: [facility] 10-02-2023 11:33-0400 Systolic blood pressure 100 mm[Hg] Robyn Willoughbyhrie GENERAL 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: [facility] 03-19-2023 11:53-0400 Body mass index (BMI) [Ratio] 28 kg/m2 PROGRAM SUPPORT CLERK-C Kartik Padgett [facility] Work Phone: [facility] 03-19-2023 11:53-0400 Body temperature 97.2 [degF] PROGRAM SUPPORT CLERK-C Kartik Padgett [facility] Work Phone: [facility] 03-19-2023 11:53-0400 Body weight 81.3 kg PROGRAM SUPPORT CLERK-C Kartik Padgett [facility] Work Phone: 2(998)038-806520 [place] [address] 03-19-2023 11:53-0400 Diastolic blood pressure 79 mm[Hg] PROGRAM SUPPORT CLERK-C Kartik Padgett [facility] Work Phone: 1(507)764-516220 [place] [address] 03-19-2023 11:53-0400 Heart rate 81 /min PROGRAM SUPPORT CLERK-C Kartik Padgett [facility] Work Phone: 2(553)475-500620 [place] [address] 03-19-2023 11:53-0400 Respiratory rate 16 /min PROGRAM SUPPORT CLERK-C Kartik Padgett [facility] Work Phone: 3(293)547-015220 [place] [address] 03-19-2023 11:53-0400 SaO2% (BldA) [Mass fraction] 98 % PROGRAM SUPPORT CLERK-C Kartik Padgett [facility] Work Phone: 2(056)806-969220 [place] [address] 03-19-2023 11:53-0400 Systolic blood pressure 119 mm[Hg] PROGRAM SUPPORT CLERK-C Kartik Padgett [facility] Work Phone: 9(050)486-018120 [place] [address] 03-18-2023 10:56-0400 Body height 170.18 cm PROGRAM SUPPORT CLERK-C Kartik Padgett [facility] Work Phone: 6(605)054-762920 [place] [address] 03-18-2023 10:56-0400 Body mass index (BMI) [Ratio] 27.3 kg/m2 PROGRAM SUPPORT CLERK-C Kartik Padgett [facility] Work Phone: 4(945)817-188020 [place] [address] 03-18-2023 10:56-0400 Body temperature 97 [degF] PROGRAM SUPPORT CLERK-C Kartik Padgett [facility] Work Phone: 8(469)[phone] [place] [address] 03-18-2023 10:56-0400 Body weight 79.37 kg PROGRAM SUPPORT CLERK-C Kartik Padgett [facility] Work Phone: 8(992)094-117220 [place] [address] 03-18-2023 10:56-0400 Diastolic blood pressure 89 mm[Hg] PROGRAM SUPPORT CLERK-C Kartik Padgett [facility] Work Phone: 7(607)813-782920 [place] [address] 03-18-2023 10:56-0400 Heart rate 94 /min PROGRAM SUPPORT CLERK-C Kartik Padgett [facility] Work Phone: 5(448)874-231220 [place] [address] 03-18-2023 10:56-0400 Respiratory rate 16 /min PROGRAM SUPPORT CLERK-C Kartik Padgett [facility] Work Phone: [facility] 03-18-2023 10:56-0400 SaO2% (BldA) [Mass fraction] 99 % PROGRAM SUPPORT CLERK-C Kartik Padgett [facility] Work Phone: [facility] 03-18-2023 10:56-0400 Systolic blood pressure 131 mm[Hg] PROGRAM SUPPORT CLERK-C Kartik Padgett [facility] Work Phone: [facility] 10-17-2022 15:33-0400 Body height 170.18 cm [facility] 10-17-2022 15:33-0400 Body mass index (BMI) [Ratio] 29 [facility]2 [facility] 10-17-2022 15:33-0400 Body temperature 98.1 [degF] [facility] 10-17-2022 15:33-0400 Body weight 83.91 kg [facility] 10-17-2022 15:33-0400 Diastolic blood pressure 70 mm[Hg] [facility] 10-17-2022 15:33-0400 Heart rate 90 /min [facility] 10-17-2022 15:33-0400 Respiratory rate 16 /min [facility] 10-17-2022 15:33-0400 SaO2% (BldA) [Mass fraction] 96 % [facility] 10-17-2022 15:33-0400 Systolic blood pressure 90 mm[Hg] [facility] 05-03-2022 07:24-0500 Body weight 92.08 kg Robyn Warner APRN.[employer] Work Phone: [facility] 05-03-2022 07:24-0500 Diastolic blood pressure 72 mm[Hg] Robyn Warner APRN.[employer] Work Phone: [facility] 05-03-2022 07:24-0500 Systolic blood pressure 118 mm[Hg] Robyn Warner APRN.[employer] Work Phone: [facility] 04-18-2022 15:36-0500 Body height 170.2 cm Robyn Warner APRN.[employer] Work Phone: [facility] 04-18-2022 15:36-0500 Body weight 91.54 kg Robyn Warner APRN.[employer] Work Phone: [facility] 04-18-2022 15:36-0500 Diastolic blood pressure 70 mm[Hg] Robyn Warner APRN.[employer] Work Phone: [facility] 04-18-2022 15:36-0500 Systolic blood pressure 128 mm[Hg] Robyn Warner APRN.[employer] Work Phone: [facility] 02-11-2022 17:11-0400 Diastolic blood pressure 73 mm[Hg] No Primary Care Physician [facility] Work Phone: 02-11-2022 17:11-0400 Heart rate 74 /min No Primary Care Physician [facility] Work Phone: 02-11-2022 17:11-0400 Respiratory rate 17 /min No Primary Care Physician [facility] Work Phone: 02-11-2022 17:11-0400 SaO2% (BldA) [Mass fraction] 99 % No Primary Care Physician [facility] Work Phone: 02-11-2022 17:11-0400 Systolic blood pressure 98 mm[Hg] No Primary Care Physician [facility] Work Phone: 02-11-2022 15:12-0400 Body height 170.18 cm No Primary Care Physician [facility] Work Phone: 02-11-2022 15:12-0400 Body mass index (BMI) [Ratio] 29.7 kg/m2 No Primary Care Physician [facility] Work Phone: 02-11-2022 15:12-0400 Body temperature 97.3 [degF] No Primary Care Physician [facility] Work Phone: 02-11-2022 15:12-0400 Body weight 86.18 kg No Primary Care Physician [facility] Work Phone: 12-23-2021 08:07-0400 Body height 170.18 cm No Primary Care Physician [facility] Work Phone: 12-23-2021 08:07-0400 Body mass index (BMI) [Ratio] 30.2 kg/m2 No Primary Care Physician [facility] Work Phone: 12-23-2021 08:07-0400 Body weight 87.54 kg No Primary Care Physician [facility] Work Phone: 12-09-2021 09:29-0400 Body mass index (BMI) [Ratio] 30.2 kg/m2 No Primary Care Physician [facility] Work Phone: 12-09-2021 09:29-0400 Body temperature 96.3 [degF] No Primary Care Physician [facility] Work Phone: 12-09-2021 09:29-0400 Body weight 87.54 kg No Primary Care Physician [facility] Work Phone: 12-09-2021 09:29-0400 Diastolic blood pressure 60 mm[Hg] No Primary Care Physician [facility] Work Phone: 12-09-2021 09:29-0400 Heart rate 103 /min No Primary Care Physician [facility] Work Phone: 12-09-2021 09:29-0400 Respiratory rate 18 /min No Primary Care Physician [facility] Work Phone: 12-09-2021 09:29-0400 SaO2% (BldA) [Mass fraction] 99 % No Primary Care Physician [facility] Work Phone: 12-09-2021 09:29-0400 Systolic blood pressure 114 mm[Hg] No Primary Care Physician [facility] Work Phone: 11-29-2021 08:14-0400 Body height 170.18 cm No Primary Care Physician [facility] Work Phone: 11-29-2021 08:14-0400 Body mass index (BMI) [Ratio] 30.5 kg/m2 No Primary Care Physician [facility] Work Phone: 11-29-2021 08:14-0400 Body temperature 97.6 [degF] No Primary Care Physician [facility] Work Phone: 11-29-2021 08:14-0400 Body weight 88.45 kg No Primary Care Physician [facility] Work Phone: 11-29-2021 08:14-0400 Diastolic blood pressure 78 mm[Hg] No Primary Care Physician [facility] Work Phone: 11-29-2021 08:14-0400 Heart rate 83 /min No Primary Care Physician [facility] Work Phone: 11-29-2021 08:14-0400 Respiratory rate 14 /min No Primary Care Physician [facility] Work Phone: 11-29-2021 08:14-0400 SaO2% (BldA) [Mass fraction] 98 % No Primary Care Physician [facility] Work Phone: 11-29-2021 08:14-0400 Systolic blood pressure 130 mm[Hg] No Primary Care Physician [facility] Work Phone: 11-23-2021 14:46-0400 Body temperature 98 [degF] No Primary Care Physician [facility] Work Phone: 11-23-2021 14:46-0400 Diastolic blood pressure 80 mm[Hg] No Primary Care Physician [facility] Work Phone: 11-23-2021 14:46-0400 Heart rate 102 /min No Primary Care Physician [facility] Work Phone: 11-23-2021 14:46-0400 Respiratory rate 14 /min No Primary Care Physician [facility] Work Phone: 11-23-2021 14:46-0400 SaO2% (BldA) [Mass fraction] 98 % No Primary Care Physician [facility] Work Phone: 11-23-2021 14:46-0400 Systolic blood pressure 136 mm[Hg] No Primary Care Physician [facility] Work Phone: 08-04-2021 14:35-0500 Body mass index (BMI) [Ratio] 31.3 kg/m2 No Primary Care Physician [facility] Work Phone: 08-04-2021 14:35-0500 Body weight 90.71 kg No Primary Care Physician [facility] Work Phone: 08-04-2021 14:35-0500 Diastolic blood pressure 80 mm[Hg] No Primary Care Physician [facility] Work Phone: 08-04-2021 14:35-0500 Systolic blood pressure 108 mm[Hg] No Primary Care Physician [facility] Work Phone: 08-04-2021 13:35-0500 Body height 170.18 cm No Primary Care Physician [facility] Work Phone: 08-04-2021 13:35-0500 Body mass index (BMI) [Ratio] 31.3 kg/m2 No Primary Care Physician [facility] Work Phone: 08-04-2021 13:35-0500 Body weight 90.71 kg No Primary Care Physician [facility] Work Phone: 08-04-2021 13:35-0500 Diastolic blood pressure 80 mm[Hg] No Primary Care Physician [facility] Work Phone: 08-04-2021 13:35-0500 Systolic blood pressure 108 mm[Hg] No Primary Care Physician [facility] Work Phone: 07-28-2021 08:26-0500 Body mass index (BMI) [Ratio] 31.3 kg/m2 No Primary Care Physician [facility] Work Phone: 07-28-2021 08:26-0500 Body weight 90.71 kg No Primary Care Physician [facility] Work Phone: 09-21-2020 07:32-0400 Body height 170.2 cm Ana Maria Baker MD Work Phone: [facility] 09-21-2020 07:32-0400 Body mass index (BMI) [Ratio] 29.44 kg/m2 Ana Maria Baker MD Work Phone: [facility] 09-21-2020 07:32-0400 Body temperature 97.81 [degF] Ana Maria Baker MD Work Phone: [facility] 09-21-2020 07:32-0400 Body weight 85.28 kg Ana Maria Baker MD Work Phone: [facility] 09-21-2020 07:32-0400 Diastolic blood pressure 76 mm[Hg] Ana Maria Baker MD Work Phone: [facility] 09-21-2020 07:32-0400 Heart rate 65 /min Ana Maria Baker MD Work Phone: [facility] 09-21-2020 07:32-0400 Respiratory rate 16 /min Ana Maria Baker MD Work Phone: [facility] 09-21-2020 07:32-0400 SaO2% (BldA) [Mass fraction] 97 % Ana Maria Baker MD Work Phone: [facility] 09-21-2020 07:32-0400 Systolic blood pressure 130 mm[Hg] Ana Maria Baker MD Work Phone: [facility] 08-26-2020 09:07-0400 BMI (Body Mass Index) 29.6 kg/m2 Shahla Oostra [facility] 08-26-2020 09:07-0400 Body weight 85.73 kg Shahla Oostra [facility] 08-26-2020 09:07-0400 Height 170.2 cm Shahla Oostra [facility] 05-06-2020 12:26-0500 BMI (Body Mass Index) 31.61 kg/m2 Ana Maria Baker [facility] 05-06-2020 12:26-0500 Body Temperature 98.29 [degF] Ana Maria Baker [facility] 05-06-2020 12:26-0500 Body weight 91.54 kg Ana Maria Sawyerr [facility] 05-06-2020 12:26-0500 BP Diastolic 84 mm[Hg] Ana Maria Olivia [facility] 05-06-2020 12:26-0500 BP Systolic 120 mm[Hg] Ana Maria Sawyerr [facility] 05-06-2020 12:26-0500 Height 170.2 cm Ana Maria Sawyerr [facility] 05-06-2020 12:26-0500 Pulse (Heart Rate) 95 /min Ana Maria Sawyerr [facility] 05-06-2020 12:26-0500 Pulse Oximetry 98 % Ana Maria Baker [facility] 05-06-2020 12:26-0500 Respiratory Rate 16 /min Ana Maria Baker [facility] 01-11-2018 09:06-0400 BMI (Body Mass Index) 27.88 kg/m2 [facility] 01-11-2018 09:06-0400 Body Temperature 98.01 [degF] [facility] 01-11-2018 09:06-0400 BP Diastolic 70 mm[Hg] [facility] 01-11-2018 09:06-0400 BP Systolic 104 mm[Hg] [facility] 01-11-2018 09:06-0400 Height 170.2 cm [facility] 01-11-2018 09:06-0400 Pulse (Heart Rate) 91 /min [facility] 01-11-2018 09:06-0400 Pulse Oximetry 98 % [facility] [facility] 01-11-2018 09:06-0400 Respiratory Rate 16 /min [facility] 01-11-2018 09:06-0400 Weight 80.74 kg [facility] Encounters Encounter Date Encounter Type Care Provider Facility Start: 12-30-2024 ambulatory Kartik RIDLEY Facility :[facility] Start: 12-25-2024 ambulatory Robyn Warner Facility:[facility] Start: 12-23-2024 End: 12-23-2024 Get Medical Advice Robyn Warner APRN.CNP Work Phone: OB/Gynecology Comment on above: Lab order Start: 12-19-2024 End: 12-19-2024 Patient encounter procedure Robyn Warner APRN.CNP Work Phone: OB/Gynecology Comment on above: Osteoarthritis of le ft knee, unspecified osteoarthritis type (Primary Dx); Anxiety; History of gestational diabetes; Binge-eating disorder, in full remission, mild; Encounter for long-term (current) use of medications; History of obesity Start: 12-19-2024 End: 12-19-2024 ambulatory KARTIK PADGETT Facility:[facility] Start: 12-11-2024 End: 12-11-2024 ambulatory [facility] Provider OB/Gynecology Comment on above: 12/19 Start: 12-11-2024 End: 12-11-2024 E-mail encounter from caregiver [facility] Provider OB/Gynecology Start: 10-17-2024 End: 10-17-2024 ambulatory Kartik Padgett PROGRAM SUPPORT CLERK-C Work Phone: -Physical Therapy Start: 10-17-2024 End: 10-17-[address] Daryl Geiger MD -Physical Therapy Work Phone: Start: 10-07-2024 ambulatory Chasidy Norton Facility:[facility] Start: 09-26-2024 End: 09-26-[address] Eulogio Mello DO -[facility] Work Phone: Start: 09-26-2024 End: 09-26-2024 ambulatory Kartik Padgett [facility] Facility:[facility] Start: 09-25-2024 End: 09-25-2024 Patient encounter procedure Robyn Warner APRN.[employer] Work Phone: OB/Gynecology Comment on above: Osteoarthritis of le ft knee, unspecified osteoarthritis type (Primary Dx); Anxiety; Stress incontinence; History of gestational diabetes; Binge-eating disorder, in full remission, mild; History of obesity Start: 09-25-2024 End: 09-25-2024 ambulatory KARTIK PADGETT Facility:[facility] Start: 08-07-2024 End: 08-07-2024 Patient encounter procedure Brooke Liu PROGRAM SUPPORT CLERK-C -[facility] Work Phone: Start: 08-07-2024 End: 08-07-2024 ambulatory Kartik Hdezder VS Facility:[facility] Start: 08-07-2024 End: 08-07-2024 ambulatory Kartik Padgett PROGRAM SUPPORT CLERK-C Work Phone: [facility] Work Phone: Start: 08-07-2024 End: 08-07-2024 Patient encounter procedure Brooke Liu PROGRAM SUPPORT CLERK-C -[facility] Work Phone: Start: 08-07-2024 End: 08-07-2024 ambulatory Brooke Liu Facility:[facility] Start: 08-04-2024 End: 08-04-2024 Patient encounter procedure Brooke Noe PROGRAM SUPPORT CLERK-C -[facility] Work Phone: Start: 08-04-2024 End: 08-04-2024 ambulatory Kartik Padgett [facility] Facility:[facility] Start: 07-03-2024 End: 07-03-2024 Patient encounter procedure Robyn Warner APRN.[employer] Work Phone: OB/Gynecology Comment on above: Osteoarthritis of le ft knee, unspecified osteoarthritis type (Primary Dx); Anxiety; Stress incontinence; History of gestational diabetes; Binge-eating disorder, in full remission, mild; History of obesity Start: 07-03-2024 End: 07-03-2024 ambulatory KARTIK PADGETT Facility:[facility] Start: 06-23-2024 ambulatory Kartik Padgett [facility] Facility :[facility] Start: 06-10-2024 ambulatory Kartik Padgett [facility] Facility :[facility] Start: 06-10-2024 Non-patient / Non-visit Dr. Eulogio stevens DO [facility] Start: 06-10-2024 End: 06-10-2024 Admission to same day surgery center Dr. Eulogio Mello -[facility] Start: 06-10-2024 End: 06-10-2024 [facility] Start: 04-15-2024 End: 04-15-2024 Refill Carolyn Dumas APRN.[employer] Work Phone: OB/Gynecology Comment on above: Refill Request Diflucan Start: 04-09-2024 End: 04-09-2024 ambulatory KARTIK HDEZDER Facility:[facility] Start: 04-09-2024 End: 04-09-2024 Patient encounter procedure Robyn Warner APRN.CNP Work Phone: OB/Gynecology Comment on above: Osteoarthritis of le ft knee, unspecified osteoarthritis type (Primary Dx); Anxiety; Stress incontinence; History of gestational diabetes; Binge-eating disorder, in full remission, mild; History of obesity Start: 04-01-2024 End: 04-01-2024 ambulatory Kartik Padgett [facility] Facility:[facility] Start: 03-14-2024 End: 03-14-2024 ambulatory Kartik Padgett [facility] Facility:[facility] Start: 03-12-2024 ambulatory [facility] Facility:[facility] Start: 03-12-2024 End: 03-12-2024 ambulatory [facility] Facility:[facility] Start: 03-07-2024 End: 03-07-2024 ambulatory [facility] Facility:[facility] Start: 02-13-2024 End: 02-13-2024 ambulatory [facility] Facility:[facility] Start: 02-13-2024 End: 02-13-2024 Patient encounter procedure Robyn Warner APRN.CNP Work Phone: OB/Gynecology Comment on above: Osteoarthritis of le ft knee, unspecified osteoarthritis type (Primary Dx); Anxiety; Stress incontinence; History of gestational diabetes; Binge-eating disorder, in full remission, mild; History of obesity Start: 02-05-2024 End: 02-06-2024 Documentation procedure Mammography Coordinator [facility] Department Start: 02-05-2024 End: 02-06-2024 Letter encounter Mammography Coordinator [facility] Start: 02-01-2024 End: 02-01-2024 ambulatory ROBYN WARNER Facility:[facility] Start: 02-01-2024 End: 02-01-2024 Subsequent hospital visit by physician Screen Mammo [facility] Comment on above: Encounter for screen ing mammogram for malignant neoplasm of breast [Z12.31] Start: 01-21-2024 End: 01-21-2024 Telephone encounter Robyn Warner APRN.CNP Work Phone: Mammogram Comment on above: Orders Start: 12-26-2023 End: 12-27-2023 ambulatory [facility] Facility:[facility] Start: 12-26-2023 End: 12-26-2023 Patient encounter procedure Robyn Warner APRN.[employer] Work Phone: OB/Gynecology Comment on above: Osteoarthritis of le ft knee, unspecified osteoarthritis type (Primary Dx); Anxiety; Stress incontinence; History of gestational diabetes; Binge-eating disorder, in full remission, mild; Screening cholesterol level; Screening for diabetes mellitus; Screening for metabolic disorder; Screening for thyroid disorder; Screening for deficiency anemia; History of obesity in adulthood Start: 11-30-2023 ambulatory Robyn CHE RN.[employer] Work Phone: OB/Gynecology Comment on above: medications Start: 11-30-2023 E-mail encounter fro m caregiver Robyn Warner APRN.[employer] Work Phone: OB/Gynecology Start: 11-23-2023 End: 11-23-2023 Patient encounter procedure Robyn Warner APRN.[facility] Work Phone: OB/Gynecology Comment on above: Encounter for gyneco logical examination (general) (routine) without abnormal findings (Primary Dx); Stress incontinence; Encounter for screening mammogram for breast cancer; Heterogeneously dense tissue of both breasts on mammography; History of obesity Start: 11-23-2023 End: 11-23-2023 Patient encounter status Robyn Warner APRN.CNP Work Phone: [facility] Start: 11-14-2023 Get Medical Advice Robyn carreno APRN.[facility] Work Phone: OB/Gynecology Comment on above: Refill Start: 10-02-2023 End: 10-02-2023 Patient encounter procedure Robyn Warner APRN.[employer] Work Phone: OB/Gynecology Comment on above: Vaginal dryness (Bria mariajose Dx); Low libido; Malaise and fatigue Start: 09-26-2023 End: 09-26-2023 ambulatory [facility] Work Phone: Start: 09-26-2023 End: 09-26-2023 Patient encounter procedure [facility]-Laboratory, OP Pavilion Start: 03-19-2023 End: 03-19-2023 ambulatory PROGRAM SUPPORT CLERK-C Kartik Padgett [facility] Work Phone: [facility] Work Phone: Start: 03-19-2023 End: 03-19-2023 Patient encounter procedure PROGRAM SUPPORT CLERK-C Kartik Padgett [facility] Work Phone: [facility]-Laboratory, Specimen Work Phone: Start: 03-19-2023 End: 03-19-2023 Patient encounter procedure PROGRAM SUPPORT CLERK-C Kartik Padgett [facility] Work Phone: [facility] Work Phone: Start: 03-18-2023 End: 03-18-2023 Emergency department patient visit PROGRAM SUPPORT CLERK-C Kartik Padgett [facility] Work Phone: [facility]-Emergency Department Work Phone: Start: 02-23-2023 End: 02-23-2023 Patient encounter procedure PROGRAM SUPPORT CLERK-C Kartik Padgett [facility] Work Phone: [facility] Work Phone: Start: 02-12-2023 End: 02-12-2023 ambulatory [facility] Work Phone: Start: 02-12-2023 End: 02-12-2023 Patient encounter procedure [facility]-MRI - [facility] Work Phone: Start: 01-26-2023 End: 01-26-2023 ambulatory gloria GARRIDO [facility] Work Phone: Start: 01-26-2023 End: 01-26-2023 Patient encounter procedure gloria GARRIDO [facility]-Outpatient Breast Imaging Work Phone: Start: 01-07-2023 ambulatory Robyn CHE RN.[employer] Work Phone: OB/Gynecology Comment on above: Mammogram Start: 10-17-2022 End: 10-17-2022 Patient encounter procedure MD Daria GARRIDO [facility] Work Phone: Start: 05-03-2022 End: 05-03-2022 Patient encounter procedure Robyn Warner APRN.CNP Work Phone: OB/Gynecology Comment on above: Vulvovaginal itching (Primary Dx) Start: 04-27-2022 Telephone encounter Robyn augustin APRN.CNP Work Phone: OB/Gynecology Comment on above: Patient Question Start: 04-18-2022 End: 04-18-2022 Patient encounter procedure Robyn Warner APRN.[employer] Work Phone: OB/Gynecology Comment on above: Vaginal discharge (P rimary Dx); Vagina itching Start: 02-11-2022 End: 02-11-2022 Emergency department patient visit No Primary Care Physician [facility]-Emergency Department Start: 01-16-2022 End: 01-16-2022 ambulatory No Primary Care Physician [facility] Work Phone: Start: 01-16-2022 End: 01-16-2022 Patient encounter procedure No Primary Care Physician [facility]-Pulmonary Services/Neurology Start: 12-23-2021 End: 12-23-2021 Patient encounter procedure No Primary Care Physician [facility] Start: 12-09-2021 End: 12-09-2021 Patient encounter procedure No Primary Care Physician [facility] Internal Medicine Start: 11-29-2021 Patient encounter status No [facility] Care Physician [facility] Start: 11-29-2021 End: 11-29-2021 Encounter for general adult medical examination without abnormal findings No Primary Care Physician [facility] Start: 11-29-2021 End: 11-29-2021 Patient encounter procedure No Primary Care Physician [facility] Start: 11-23-2021 End: 11-23-2021 Patient encounter procedure No Primary Care Physician [facility] Start: 09-28-2021 End: 09-28-2021 Patient encounter procedure No Primary Care Physician [facility] Start: 08-17-2021 End: 08-17-2021 Patient encounter procedure No Primary Care Physician [facility]-Outpatient Breast Imaging Start: 08-04-2021 End: 08-04-2021 Patient encounter procedure No Primary Care Physician [facility] Start: 07-28-2021 End: 07-28-2021 Patient encounter procedure No Primary Care Physician [facility] Start: 06-30-2021 Orders Only Ana Maria Baker MD Work Phone: [facility] Start: 05-09-2021 Registered Recurring No Primar y Care Physician [facility] Other Staff Start: 02-17-2021 Orders Only Ana Maria Baker MD Work Phone: [facility] Start: 02-16-2021 Orders Only Ana Maria Baker MD Work Phone: [facility] Start: 01-28-2021 Chart abstracting Ana Maria Glover Work Phone: [facility] Start: 01-06-2021 End: 01-10-2021 Orders Only Cathy Salgado [employer] Work Phone: [facility] Comment on above: Vaginal itching (Bria mariajose Dx) Occupational exposur e to COVID-19 virus (Primary Dx) Start: 12-14-2020 End: 12-14-2020 Orders Only Cathy Salgado [employer] Work Phone: [facility] Comment on above: Situational anxiety (Primary Dx) Start: 12-08-2020 ambulatory YOBANI HIDALGO [facility] Ambulatory Start: 12-01-2020 End: 12-01-2020 Orders Only Ana Maria Baker MD Work Phone: [facility] Start: 11-25-2020 End: 11-25-2020 ambulatory SHERRY BAGLEY [facility] Amb[facility] Start: 11-22-2020 End: 11-22-2020 Orders Only Ana Maria Baker MD Work Phone: [facility] Start: 10-22-2020 End: 10-22-2020 ambulatory HSAHLA CASTAÑEDA [facility] Start: 10-22-2020 End: 10-22-2020 Postop follow up visit related to original px Shahla Castañeda MD Work Phone: [facility] Comment on above: 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); Physical exam Start: 09-21-2020 End: 09-21-2020 Physical examination Ana Maria Baker MD Work Phone: [facility] Start: 09-20-2020 End: 09-20-2020 Admission to same day surgery center Shahla Castañeda MD Work Phone: [facility] Start: 09-15-2020 End: 09-15-2020 ambulatory SHAHLA RESTREPO [facility] Start: 09-15-2020 End: 09-15-2020 Office outpatient visit 25 minutes Shahla Castañeda MD Work Phone: [facility] Comment on above: 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) Start: 09-09-2020 ambulatory SHAHLA KAYE [facility] Ambulatory Start: 08-27-2020 End: 08-28-2020 ambulatory ANA MARIA OLIVIA [facility] Start: 08-27-2020 End: 08-27-2020 Coordination of care plan Keily Ken Patient Navigator Start: 08-27-2020 End: 08-27-2020 Subsequent hospital visit by physician Shahla Castañeda Work Phone: [facility] Comment on above: Canceled (Provider/C ancelled) Arrived Start: 08-26-2020 End: 08-26-2020 Orders Only Ana Maria Olivia Work Phone: [facility] Comment on above: Stress at home Start: 08-26-2020 End: 08-26-2020 Office outpatient new 45 minutes Ana Maria Olivia Work Phone: [facility] Comment on above: Mass of upper inner quadrant of right breast (Primary Dx); Abnormal mammogram of right breast; Abnormal MRI, breast; Follow-up examination of abnormal mammogram Start: 08-25-2020 End: 08-26-2020 ambulatory PROVIDER NOT IN [facility] Start: 08-25-2020 End: 08-25-2020 Subsequent hospital visit by physician Provider Not In [facility] External Films Comment on above: Arrived Start: 08-24-2020 End: 08-25-2020 Orders Only Ana Maria Olivia Work Phone: [facility] Comment on above: Stress at home (Prim alivia Dx) Follow-up examinatio n of abnormal mammogram (Primary Dx) Arrived Start: 08-20-2020 ambulatory ANA MARIA OLIVIA [facility] Ambulatory Start: 08-19-2020 End: 08-19-2020 Orders Only Ana Maria Olivia Work Phone: [facility] Comment on above: Follow-up examinatio n of abnormal mammogram (Primary Dx) Start: 08-17-2020 End: 08-17-2020 Orders Only Ana Maria Olivia Work Phone: [facility] Comment on above: Follow-up examinatio n of abnormal mammogram (Primary Dx) Start: 08-10-2020 End: 08-14-2020 Orders Only Ana Maria Olivia Work Phone: [facility] Comment on above: Encounter for screen ing for malignant neoplasm of breast, unspecified screening modality (Primary Dx) Lateral epicondyliti s, unspecified laterality (Primary Dx); Acute pain of left shoulder Start: 08-09-2020 End: 08-09-2020 Orders Only Ana Maria Olivia Work Phone: [facility] Comment on above: Encounter for screen ing for malignant neoplasm of breast, unspecified screening modality (Primary Dx) Start: 07-28-2020 End: 08-01-2020 [facility] Start: 07-22-2020 End: 07-22-2020 Patient encounter procedure Ana Maria Sawyerr Work Phone: [facility] Comment on above: Left shoulder pain, unspecified chronicity; Lateral epicondylitis, unspecified laterality Cigarette nicotine d ependence without complication Start: 07-22-2020 End: 07-26-2020 [facility] Start: 07-20-2020 End: 07-21-2020 Patient encounter procedure ANA MARIASARA BAKER [facility] Start: 07-16-2020 End: 07-16-2020 Orders Only Cathy Salgado Work Phone: [facility] Comment on above: Cigarette nicotine d ependence without complication (Primary Dx) Start: 07-12-2020 End: 07-12-2020 Orders Only Ana Maria Olivia Work Phone: [facility] Comment on above: Lateral epicondyliti s, unspecified laterality (Primary Dx) Start: 07-07-2020 End: 07-07-2020 Orders Only Ana Maria Olivia Work Phone: [facility] Comment on above: Obesity (BMI 30-39.9 ) (Primary Dx) Start: 06-07-2020 End: 06-07-2020 Orders Only Ana Maria Olivia Work Phone: [facility] Comment on above: Obesity (BMI 30-39.9 ) Start: 06-01-2020 End: 06-01-2020 ambulatory ANA MARIA [facility] Start: 05-07-2020 End: 05-11-2020 ambulatory [facility] Start: 05-06-2020 End: 05-10-2020 ambulatory ANA MARIA [facility] Start: 05-06-2020 End: 05-06-2020 [facility] Start: 05-06-2020 End: 05-06-2020 Office outpatient new 30 minutes Ana Maria Baker Work Phone: [facility] Comment on above: Lateral epicondyliti s, unspecified laterality (Primary Dx); Obesity (BMI 30-39.9) Start: 04-29-2020 End: 04-29-2020 ambulatory ANSELMO OWENS [facility] Start: 01-11-2018 Patient encounter status Shahla Castañeda MD Work Phone: [facility] Start: 01-11-2018 End: 01-11-2018 Office outpatient new 30 minutes Cathy Salgado Work Phone: [facility] Start: 10-05-2017 End: 10-06-2017 Patient encounter procedure [facility] Facility:[facility] Procedures Date Procedure Procedure Detail Performing Clinician Start: 08-07-2024 MRI of lower extremity Kartik Padgett PROGRAM SUPPORT CLERK-C Work Phone: Start: 08-04-2024 Plain radiography of pelvis Kartik Padgett PROGRAM SUPPORT CLERK-C Work Phone: Start: 08-04-2024 Plain X-ray of femur Ma darian Padgett PROGRAM SUPPORT CLERK-C Work Phone: Start: 03-19-2023 Anaerobic microbial culture PROGRAM SUPPORT CLERK-C Kartik Padgett [facility] Work Phone: Start: 03-19-2023 Investigation of tra nsfusion reaction PROGRAM SUPPORT CLERK-C Kartik Hdezder [facility] Work Phone: Start: 03-19-2023 Microbial culture, routine PROGRAM SUPPORT CLERK-C Kartik Padgett [facility] Work Phone: Start: 03-18-2023 X-ray of both feet PROGRAM SUPPORT CLERK-C Kartik Padgett [facility] Work Phone: Start: 02-12-2023 MRI of joint of lowe r extremity Start: 01-26-2023 Screening mammography M D Daria GARRIDO Start: 02-11-2022 X-ray of both feet No P rimary Care Physician Start: 08-17-2021 Bilateral mammography N o Primary Care Physician Start: 08-17-2021 Ultrasonography of breast No Primary Care Physician Start: 07-28-2021 Radiologic examinati on of knee No Primary Care Physician Start: 08-27-2020 MM FOLLOW UP POST CL IP PLACEMENT Ana Maria Olivia Work Phone: Start: 08-27-2020 Ultrasonography guid ed biopsy of right breast Ana Maria Olivia Work Phone: Start: 08-27-2020 Us breast uni real t bryan with image limited Shahla Castañeda Work Phone: Start: 08-25-2020 Ultrasonography Externa l Transcribed Start: 08-25-2020 Mammography External T ranscribed Start: 08-24-2020 MRI of breast Ana Maria Too r Work Phone: Start: 08-19-2020 Mammography Ana Maria Olivia Start: 08-13-2020 Mammography Robyn augustin APRN.[employer] Work Phone: Start: 05-06-2020 Adult depression scr eening assessment Ana Maria Olivia Plan of Treatment Date Care Activity Detail Author Start: 02-12-2032 Urine microalbumin profile DTaP,Tdap,Td Vaccine (8 - Td or Tdap) [facility] Start: 01-12-2028 Tetanus vaccination [facility] Start: 01-12-2028 Urine microalbumin profile DTAP,TDAP,TD (7 - Td or Tdap) [facility] Start: 04-03-2025 End: 04-03-2025 Patient encounter procedure 04/03/2025 7:30 AM EST Office Visit OB/Gynecology [address] [place], [place] [id number] Robyn Warner APRN.[employer] [address] [place], [place] [id number] weight management follow up OB/Gynecology Comment on above: weight management fo llow up Start: 01-31-2025 Screening for malign ant neoplasm of breast Mammogram Screening [facility] Start: 01-26-2025 Influenza vaccination Influenza Vacc ine (#1) [facility] Start: 12-19-2024 End: 03-20-2025 Comprehensive metabolic 2000 panel - Serum or Plasma COMPREHENSIVE METABOLIC PANEL Lab Routine Encounter for long-term (current) use of medications Expected: 12/19/2024, Expires: 03/20/[address] [facility] Work Phone: Comment on above: Expected: 12/19/2024 , Expires: 03/20/2025 Start: 12-19-2024 End: 12-19-2024 Patient encounter procedure 12/19/2024 7:00 AM EDT Office Visit OB/Gynecology [address] [place] [address] Robyn Warner APRN.[employer] [address] [place] [address] weight management follow up OB/Gynecology Comment on above: weight management fo llow up Start: 11-21-2024 End: 11-21-2024 Patient encounter procedure 11/21/2024 7:30 AM EDT Office Visit OB/Gynecology [address] [place] [address] Robyn Warner APRN.[employer] [address] [place] [address] (Fax) ANNUAL OB/Gynecology Comment on above: ANNUAL Start: 09-25-2024 End: 09-25-2024 Patient encounter procedure 09/25/2024 3:30 PM EDT Office Visit OB/Gynecology [address] [place] [address] Robyn Warner APRN.CLASS A LINEMAN [address] [place] [address] wt mgmt f/up OB/Gynecology Comment on above: wt mgmt f/up Start: 07-03-2024 End: 07-03-2024 Patient encounter procedure 07/03/2024 2:30 PM EST Office Visit OB/Gynecology [address] [place] [address] Robyn Warner, GENERAL OPHTHALMOLOGIST.CLASS A LINEMAN [address] [place] [address] wt mgmt f/up ok per AG OB/Gynecology Comment on above: wt mgmt f/up ok per AG Start: 06-10-2024 Anes nerve muscle td n fascia&bursa forearm wrist ANESTH LOWER ARM SURGERY [facility] Start: 06-10-2024 Injection therapeuti c carpal tunnel THER INJECTION CARP TUNNEL [facility] Start: 06-10-2024 Neuroplasty &/transp os median nrv carpal tunne CARPAL TUNNEL SURGERY [facility] Start: 06-10-2024 Application of ice collar, cap or bag [facility] Start: 06-10-2024 Catheterization of vein [facility] Start: 06-10-2024 Elevation of affecte d extremity [facility] Start: 06-10-2024 Following clinical pathway protocol [facility] Start: 06-10-2024 Patient discharge [facility] Start: 06-10-2024 Procedure discontinued [facility] Start: 06-10-2024 Taking patient vital signs [facility] Start: 06-10-2024 Vital signs measurements [facility] Start: 06-10-2024 [facility] Start: 06-10-2024 Medication education [facility] Start: 04-09-2024 End: 04-09-2024 Patient encounter procedure 04/09/2024 11:30 AM EST Office Visit OB/Gynecology [address] [place] [address] Robyn Warner, GENERAL OPHTHALMOLOGIST.CLASS A LINEMAN [address] [place] [address] wt mgmt f/u OB/Gynecology Comment on above: wt mgmt f/u Start: 02-13-2024 End: 02-13-2024 Patient encounter procedure 02/13/2024 7:30 AM EDT Office Visit OB/Gynecology [address] [place] [address] Robyn Warner APRN.CLASS A LINEMAN [address] [place] [address] [place] [address] wt mgt F/up OB/Gynecology Comment on above: wt mgt F/up Start: 02-01-2024 End: 02-01-2024 Patient encounter procedure 02/01/2024 8:10 AM EDT Appointment Mammogram [address] [place] [address] TAMIKO SCREENING W RJ Encounter for gynecological examination (general) (routine) without abnormal findings [Z01.419 (ICD-10-CM)]; Encounter for screening mammogram for breast cancer [Z12.31 (ICD-10-CM)]; Heterogeneously dense tissue of both breasts on mammography [R92.333 (ICD-10-CM)] Mammogram Comment on above: TAMIKO SCREENING W RJ Encounter for gynecological examination (general) (routine) without abnormal findings [Z01.419 (ICD-10-CM)]; Encounter for screening mammogram for breast cancer [Z12.31 (ICD-10-CM)]; Heterogeneously dense tissue of both breasts on mammography [R92.333 (ICD-10-CM)] Start: 01-27-2024 Covid-19 Vaccine ( season) Covid-19 Vaccine ( season) [facility] Start: 01-27-2024 Covid-19 Vaccine ( season) Covid-19 Vaccine ( season) [facility] Start: 01-27-2024 Influenza vaccination Influenza Vacc ine (#1) [facility] Start: 01-27-2024 Screening for malign ant neoplasm of breast Mammogram Screening [facility] Start: 11-23-2023 End: 11-23-2023 Patient encounter procedure 11/23/2023 7:00 AM EDT Office Visit OB/Gynecology [address] [place] [address] WarnerRobyn holland APRN.CLASS A LINEMAN [address] [place] [address] Annual exam/breast exam OB/Gynecology Comment on above: Annual exam/breast e xam Start: 05-28-2023 Behavioral Health Screening Behavioral Health Screening [facility] Start: 03-18-2023 End: 03-18-2023 [facility] Start: 01-26-2023 Covid-19 Vaccine ( season) Covid-19 Vaccine () [facility] Start: 01-26-2023 Influenza vaccination INFLUENZA (#1) [facility] Start: 05-28-2022 [facility] Start: 01-26-2022 Influenza vaccination INFLUENZA (#1) [facility] Start: 01-03-2022 HPV TESTING HPV TESTING [facility] Start: 01-03-2022 PAP TESTING PAP TESTING [facility] Start: 01-03-2022 Screening for malign ant neoplasm of cervix [facility] Start: 08-19-2021 Screening for malign ant neoplasm of breast Mammogram [facility] Start: 08-19-2021 Screening mammography [facility] Start: 08-13-2021 Mammography MAMMOGRAM [facility] Start: 05-28-2021 DEPRESSION ASSESSMENT DEPRESSION ASS ESSMENT [facility] Start: 05-06-2021 Adolescent depressio n screening assessment Depression Screening (PHQ9) [facility] Start: 05-06-2021 Depression screening using PHQ-9 (Patient Health Questionnaire 9) score [facility] Start: 04-22-2021 End: 04-22-2021 Patient encounter procedure 04/22/2021 Office Visit Breast Surgery Shahla Castañeda MD [address] [place] [address] [phone] [facility] Start: 01-26-2021 Influenza vaccination [facility] Start: 11-25-2020 End: 11-25-2020 Patient encounter procedure 11/25/2020 Office Visit Breast Surgery Sherry Bagley PA-C [address] [place] [address] [phone] [facility] Start: 10-22-2020 End: 10-22-2020 Follow-up encounter 10/22/2020 Follow-Up Breast Surgery Shahla Castañeda MD [address] [facility] [address] [place] [address] [phone] [facility] Start: 10-05-2020 End: 10-05-2020 Admission to same day surgery center 10/05/2020 Surgery Shahla Castañeda MD [address] [facility] [address] [place] [address] [phone] Right breast open excisional biopsy with intraoperative ultrasound-guided localization [facility] Comment on above: Right breast open ex cisional biopsy with intraoperative ultrasound-guided localization Start: 10-05-2020 Subsequent hospital visit by physician 10/05/2020 Hospital Encounter Shahla Castañeda MD [address] [facility] [address] [place] [address] [phone] [facility] Start: 09-21-2020 End: 09-21-2020 Patient encounter procedure 09/21/2020 Office Visit Primary Care Ana Maria Baker MD [address] [address] [phone] [facility] Start: 08-27-2020 End: 08-26-2021 US Breast Right Limited US Breast Right Limited Imaging Routine Mass of upper inner quadrant of right breast Expected: 08/27/2020, Expires: 08/26/2021 [facility] Comment on above: Expected: 08/27/2020 , Expires: 08/26/2021 Start: 08-27-2020 End: 08-27-2020 Office Visit [facility] Start: 08-26-2020 End: 08-26-2021 Ultrasonography guided biopsy of right breast US Breast Biopsy Right Imaging Routine Mass of upper inner quadrant of right breast Expected: 08/26/2020, Expires: 08/26/2021 [facility] Comment on above: Expected: 08/26/2020 , Expires: 08/26/2021 Start: 08-26-2020 End: 08-26-2020 [facility] Start: 08-24-2020 End: 08-24-2021 Ultrasonography guided biopsy of right breast US Breast Biopsy Right Imaging Routine Stress at home Expected: 08/24/2020, Expires: 08/24/2021 [facility] Comment on above: Expected: 08/24/2020 , Expires: 08/24/2021 Start: 08-20-2020 End: 08-20-2021 MRI of breast MR Breast Bilateral With And Without Contrast Imaging Routine Follow-up examination of abnormal mammogram Expected: 08/20/2020, Expires: 08/20/2021 [facility] Comment on above: Expected: 08/20/2020 , Expires: 08/20/2021 Start: 08-19-2020 End: 08-19-2021 MR Breast Right With Contrast MR Breast Right With Contrast Imaging Routine Follow-up examination of abnormal mammogram Expected: 08/19/2020, Expires: 08/19/2021 [facility] Comment on above: Expected: 08/19/2020 , Expires: 08/19/2021 Start: 08-19-2020 End: 08-19-2020 Treatment [facility] Start: 08-17-2020 End: 10-17-2021 MG Breast - bilateral diagnostic Mammography Diagnostic Bilateral Imaging Routine Follow-up examination of abnormal mammogram Expected: 08/17/2020, Expires: 10/17/2021 [facility] Comment on above: Expected: 08/17/2020 , Expires: 10/17/2021 Start: 08-12-2020 End: 08-12-2020 Treatment [facility] Start: 08-10-2020 End: 10-10-2021 MG Breast - bilateral screening Mammography Screening Bilateral Imaging Routine Encounter for screening for malignant neoplasm of breast, unspecified screening modality Expected: 08/10/2020, Expires: 10/10/2021 [facility] Comment on above: Expected: 08/10/2020 , Expires: 10/10/2021 Start: 08-10-2020 End: 08-10-2020 Treatment [facility] Start: 08-09-2020 End: 08-09-2020 Office Visit [facility] Start: 08-09-2020 End: 10-09-2021 MG Breast - bilateral screening Mammography Screening Bilateral Imaging Routine Encounter for screening for malignant neoplasm of breast, unspecified screening modality Expected: 08/09/2020, Expires: 10/09/2021 [facility] Comment on above: Expected: 08/09/2020 , Expires: 10/09/2021 Start: 08-05-2020 End: 08-05-2020 Treatment 08/05/2020 Treatment Rehabilitation Ana Maria Baker MD [address] [address] [phone] Marlon Mills PTA [facility] Start: 07-29-2020 End: 07-29-2020 Treatment 07/29/2020 Treatment Rehabilitation Ana Maria Baker MD [address] [address] [phone] Marlon Mills PTA [facility] Start: 07-22-2020 End: 07-22-2020 Evaluation 07/22/2020 Evaluation Rehabilitation Ana Maria Baker MD [address] [place] [address] [phone] Chato Britton, KAVYA [facility] Start: 01-27-2020 Influenza vaccination Sequenti al Influenza Vaccine (#1) [facility] Start: 01-27-2020 Influenza vaccinatio n given Sequential Influenza Vaccine (#1) [facility] Start: 01-04-2020 Screening for malign ant neoplasm of cervix Cervical Cancer Screening [facility] Start: 01-26-2018 Influenza vaccination SEQUENTI AL INFLUENZA VACCINE (#1) [facility] Start: 03-27-2008 Hepatitis B Vaccine (3 of 3 - 19+ 3-dose series) Hepatitis B Vaccine (3 of 3 - 19+ 3-dose series) [facility] Start: 01-30-2008 HEPATITIS B (3 of 3 - 19+ 3-dose series) HEPATITIS B (3 of 3 - 19+ 3-dose series) [facility] Start: 01-20-2008 HEPATITIS B (3 of 3 - 19+ 3-dose series) HEPATITIS B (3 of 3 - 19+ 3-dose series) [facility] Start: 1998 Depression Screening Depression Scre ening [facility] Start: 1998 Hepatitis C antibody , confirmatory test Hepatitis C Screening [facility] Start: 1998 Hepatitis C screening Hepatitis C [facility] Start: 1998 HEPATITIS C SCREENING HEPATITIS C [facility] Start: 1998 HIV [address]CRE[address] HIV SCREENING [facility] Start: 1998 HIV screening HIV Screening [facility] Start: 1996 COVID-19 Vaccine (1 of 2) COVI D-19 Vaccine (1 of 2) [facility] Start: 1996 COVID-19 Vaccine (1) COVID-19 Vaccin e (1) [facility] Start: 07-31-1995 HIV screening HIV Screening [facility] Start: 1992 COVID-19 Vaccine (1) COVID-19 Vaccin e (1) [facility] Start: 1986 Pneumococcal Vaccine : Ped or At-Risk (1 of 4 - PCV13) Pneumococcal Vaccine: Ped or At-Risk (1 of 4 - PCV13) [facility] Start: 07-31-1983 History and physical examination, annual for health maintenance Wellness Visit [facility] Start: 01-30-1981 COVID-19 VACCINE (#1) COVID-19 VACCI NE (#1) [facility] Start: 1980 Screening mammography Mammogram [facility] BACTERIAL VAGINOSIS AMPLIFICATION BACTERIAL VAGINOSIS AMPLIFICATION Lab Routine Vaginal discharge Vagina itching 04/18/2022 4:[address] [facility] Work Phone: End: 05-06-2021 Body mass index (BMI) [Ratio] Vitamin D, Total, 25-OH Lab Routine Obesity (BMI 30-39.9) 1 Occurrences starting 05/06/2020 until 05/06/2021 [facility] Comment on above: 1 Occurrences starti ng 05/06/2020 until 05/06/2021 EILEEN / TRICHOMONA S AMPLIFICATION EILEEN / TRICHOMONAS AMPLIFICATION Microbiology Routine Vaginal discharge Vagina itching 04/18/2022 4:[address] [facility] Work Phone: End: 05-06-2021 Complete blood count with white cell differential, manual CBC and Differential Lab Routine Obesity (BMI 30-39.9) 1 Occurrences starting 05/06/2020 until 05/06/2021 [facility] Comment on above: 1 Occurrences starti ng 05/06/2020 until 05/06/2021 End: 05-06-2021 Comprehensive metabolic 2000 panel Comprehensive Metabolic Panel Lab Routine Obesity (BMI 30-39.9) 1 Occurrences starting 05/06/2020 until 05/06/2021 [facility] Comment on above: 1 Occurrences starti ng 05/06/2020 until 05/06/2021 End: 09-21-2021 Comprehensive metabolic 2000 panel - Serum or Plasma Comprehensive Metabolic Panel Lab Routine 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 Physical exam 1 Occurrences starting 09/21/2020 until 09/21/2021 [facility] Comment on above: 1 Occurrences starti ng 09/21/2020 until 09/21/2021 Comprehensive metabo lic 2000 panel - Serum or Plasma Comprehensive Metabolic Panel Lab Routine 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 Physical exam 09/21/2020 9:20 AM EDT [facility] End: 12-22-2024 DBT Breast - bilateral screening TAMIKO SCREENING W [facility] Radiology Routine Encounter for gynecological examination (general) (routine) without abnormal findings Encounter for screening mammogram for breast cancer Heterogeneously dense tissue of both breasts on mammography 1 Occurrences starting 11/23/2023 until 12/22/[address] [facility] Work Phone: Comment on above: 1 Occurrences starti ng 11/23/2023 until 12/22/2024 End: 02-19-2025 DBT Breast - bilateral screening TAMIKO SCREENING W RJ Radiology Routine Encounter for screening mammogram for malignant neoplasm of breast 1 Occurrences starting 01/21/2024 until 02/19/[address] [facility] Work Phone: Comment on above: 1 Occurrences starti ng 01/21/2024 until 02/19/2025 DBT Breast - bilater al screening TAMIKO SCREENING W [facility] Radiology Routine Encounter for screening mammogram for malignant neoplasm of breast 02/01/2024 1:[address] [facility] Work Phone: Drugs of abuse urine screening test Drugs of Abuse Screen, Urine Lab Routine Obesity (BMI 30-39.9) 05/06/2020 2:03 PM EST [facility] Fungus identified in Unspecified specimen by Culture FUNGAL SCREEN Microbiology Routine Vulvovaginal itching Ordered: 05/03/[address] [facility] Work Phone: Comment on above: Ordered: 05/03/2022 End: 05-06-2021 HbA1c (Bld) [Mass fraction] Hemoglobin A1c Lab Routine Obesity (BMI 30-39.9) 1 Occurrences starting 05/06/2020 until 05/06/2021 [facility] Comment on above: 1 Occurrences starti ng 05/06/2020 until 05/06/2021 End: 05-06-2021 Lipid 1996 panel Lipid Panel Lab Routine Obesity (BMI 30-39.9) 1 Occurrences starting 05/06/2020 until 05/06/2021 [facility] Comment on above: 1 Occurrences starti ng 05/06/2020 until 05/06/2021 End: 10-26-2021 Mammography Stereotactic Breast Biopsy Right Mammography Stereotactic Breast Biopsy Right Imaging Routine Mass of upper inner quadrant of right breast 1 Occurrences starting 08/26/2020 until 10/26/2021 [facility] Comment on above: 1 Occurrences starti ng 08/26/2020 until 10/26/2021 End: 08-27-2020 Mammography Stereotactic Breast Biopsy Right Mammography Stereotactic Breast Biopsy Right Imaging Routine Mass of upper inner quadrant of right breast Once for 1 Occurrences starting 08/27/2020 until 08/27/2020 [facility] Comment on above: Once for 1 Occurrenc es starting 08/27/2020 until 08/27/2020 Patient Education [facility] Work Phone: Patient referral [facility] Work Phone: Procedure on tissue specimen [facility] Comment on above: Release Upon Orderin g for 1 Occurrences starting 08/27/2020, 1 completed End: 01-06-2022 SARS-CoV-2 (COVID-19) IgG Ab [Presence] in Serum or Plasma by Immunoassay SARS-CoV-2 Antibody, IgG Lab Routine Occupational exposure to COVID-19 virus 1 Occurrences starting 01/06/2021 until 01/06/2022 [facility] Comment on above: 1 Occurrences starti ng 01/06/2021 until 01/06/2022 SARS-CoV-2 (COVID-19 ) IgG Ab [Presence] in Serum or Plasma by Immunoassay SARS-CoV-2 Antibody, IgG Lab Routine Occupational exposure to COVID-19 virus 01/06/2021 3:06 PM EDT [facility] End: 05-06-2021 TSH Qn TSH with Reflex Free T4 Lab Routine Obesity (BMI 30-39.9) 1 Occurrences starting 05/06/2020 until 05/06/2021 [facility] Comment on above: 1 Occurrences starti ng 05/06/2020 until 05/06/2021 Immunizations Immunization Date Immunization Notes Care Provider Gricel[facility] 04-10-2024 influenza, seasonal, injectable, preservative free Kartik Leroy PROGRAM SUPPORT CLERK-C Work Phone: [facility] 04-10-2024 influenza virus vaccine, unspecified formulation Ccf Provider [facility] 03-15-2023 influenza, injectabl e, quadrivalent, preservative free PROGRAM SUPPORT CLERK-C Kartik Hdezder [facility] Work Phone: [facility] 03-15-2023 influenza virus vaccine, unspecified formulation Robyn Warner APRN.CLASS A LINEMAN Work Phone: [facility] 02-11-2022 tetanus toxoid, reduced diphtheria toxoid, and acellular pertussis vaccine, adsorbed No Primary Care Physician [facility] 05-16-2021 influenza, injectabl e, quadrivalent, preservative free [facility] 05-16-2021 influenza, seasonal, injectable No Primary Care Physician [facility] 09-18-2018 hepatitis A vaccine, adult dosage [facility] 01-11-2018 tetanus toxoid, reduced diphtheria toxoid, and acellular pertussis vaccine, adsorbed; Translations: [TDAP] [facility] 12-12-2017 hepatitis A vaccine, adult dosage Ana Maria Olivia [facility] 12-12-2017 hepatitis A vaccine, unspecified formulation [facility] 01-31-2008 hepatitis B vaccine, pediatric or pediatric/adolescent dosage Ana Maria Olivia [facility] 08-30-2007 hepatitis B vaccine, adult dosage [facility] 08-30-2007 hepatitis B vaccine, unspecified formulation Robyn Warner APRN.CLASS A LINEMAN Work Phone: [facility] 07-29-2007 tuberculin skin test ; purified protein derivative solution, intradermal Robyn Warner APRN.CLASS A LINEMAN Work Phone: [facility] 07-24-2007 tuberculin skin test ; purified protein derivative solution, intradermal Robyn Warner GENERAL 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: [facility] 07-22-2007 hepatitis B vaccine, adult dosage [facility] 07-22-2007 tetanus toxoid, reduced diphtheria toxoid, and acellular pertussis vaccine, adsorbed [facility] 05-28-1993 diphtheria and tetan us toxoids, adsorbed for pediatric use [facility] 01-17-1993 measles, mumps and rubella virus vaccine [facility] 02-19-1987 trivalent poliovirus vaccine, live, oral [facility] 02-09-1986 diphtheria, tetanus toxoids and pertussis vaccine [facility] 02-09-1986 measles, mumps and rubella virus vaccine [facility] 02-09-1986 trivalent poliovirus vaccine, live, oral [facility] 02-09-1986 tuberculin skin test ; purified protein derivative solution, intradermal Robyn Warner 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 [id number] 2020 Unknown [id number] 1.2.840.929535.1.13.385.2. 7.3.978010.315 2020 Unknown [id number] 2014 Unknown 2014 Unknown [id number] 1980 Unknown [id number] 2.16.840.1.323255.3.579.2. 717 1980 Unknown [id number] 2.16.840.1.439479.3.579.2. 902 1980 Unknown [id number] 2.16.840.1.506063.3.579.2. 900 1980 Unknown [id number] 2.16.840.1.809172.3.579.2. 900 1980 Unknown [id number] 2.16.840.1.953886.3.579.2. 900 1980 Unknown [id number] 2.16.840.1.431896.3.579.2. 900 1980 Unknown [id number] 2.16.840.1.411346.3.579.2. 900 1980 Unknown [id number] 2.16.840.1.398953.3.579.2. 900 1980 Unknown [id number] 2.16.840.1.327106.3.579.2. 900 1980 Unknown [id number] 2.16.840.1.277834.3.579.2. 900 1980 Unknown [id number] 2.16.840.1.083047.3.579.2. 900 1980 Unknown [id number] 2.16.840.1.699403.3.579.2. 900 1980 Unknown [id number] 2.16.840.1.296794.3.579.2. 903 1980 Unknown [id number] 2.16.840.1.594338.3.579.2. 903 1980 Unknown [id number] 2.16.840.1.243739.3.579.2. 903 1980 Unknown [id number] 2.16.840.1.422776.3.579.2. 1980 Unknown [id number] 2.16.840.1.200806.3.579.2 1980 Unknown [id number] 2.16.840.1.822652.3.579.2 1980 Unknown [id number] 2.16840.1.538634.3.579.2 1980 Unknown [id number] 2.16840.1.772629.3.579.2 1980 Unknown [id number] 2.840.1.154665.3.579.2 1980 Unknown [id number] 2.840.1.454450.3.579.2 1980 Unknown [id number] 2.840.1.393094.3.579.2 1980 Unknown [id number] 2.840.1.286736.3.579.2 1980 Unknown [id number] 2.840.1.908932.3.579.2 1980 Unknown [id number] 2.16840.1.107288.3.579.2 1980 Unknown [id number] 2.840.1.421087.3.579.2 1980 Unknown [id number] 2.16840.1.516023.3.579.2 1980 Unknown [id number] 2.16840.1.780664.3.579.2 1980 Unknown [id number] 2.16840.1.886518.3.579.2 1980 Unknown [id number] 2.16840.1.988424.3.579.2 1980 Unknown [id number] .840.1.501800.3.579.2. 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 462 Unknown [id number] 2.840.1.649991.3.579.2. 462 Unknown [id number] 2.840.1.570775.3.579.2. 462 Unknown [id number] 2.840.1.564808.3.579.2. 462 Unknown [id number] 2.16.840.1.624517.3.579.2. 462 Unknown [id number] 2.840.1.395550.3.579.2. 462 Unknown [id number] 2.16840.1.866231.3.579.2. 462 Unknown [id number] 2.840.1.942077.3.579.2. 462 Unknown [id number] 2.16840.1.959524.3.579.2. 462 Unknown [id number] 2.16.840.1.245005.3.579.2. 462 Unknown [id number] 2.16840.1.033051.3.579.2. 462 Unknown [id number] 2.16840.1.309683.3.579.2. 462 Unknown [id number] 2.16.840.1.023581.3.579.2. 462 Unknown [id number] 2.16.840.1.854820.3.579.2. 462 Unknown [id number] 2.16.840.1.717651.3.579.2. 462 Unknown [id number] Unknown [id number] Unknown [id number] Social History Date Type Detail Facility Start: 01-11-2018 End: 07-28-2020 Tobacco smoking status LAIS Current some day smoker [facility] Start: 05-28-1999 End: 07-26-2020 History of tobacco use Cigarette Smoker [facility] Start: 01-11-2018 End: 11-23-2023 Cigarettes smoked current (pack per day) - Reported [facility] Start: 1980 Sex Assigned At Not on file [facility] Start: 05-06-2020 End: 04-18-2022 Tobacco use and exposure Never used [facility] Start: 05-06-2020 End: 12-19-2024 Alcohol intake Current drinker of alcohol (finding) [facility] Start: 05-06-2020 End: 09-21-2020 History SDOH Social Connections Get Together 2 [facility] Start: 05-06-2020 End: 09-21-2020 History SDOH Financial 5 [facility] Start: 05-06-2020 End: 09-21-2020 History SDOH Food Worry 1 [facility] Start: 05-06-2020 Tobacco Comment SOCIAL ONLY WH EN HAVING DRINKS [facility] Start: 05-06-2020 Alcohol Comment SOCIAL [facility] Start: 04-08-2022 End: 04-18-2022 Exposure to SARS-CoV-2 (event) Not sure [facility] Start: 05-06-2020 Tobacco Comment SOCIAL ONLY WH EN HAVING DRINKS [facility] Start: 09-21-2020 End: 04-18-2022 Tobacco smoking status LAIS Former smoker [facility] Start: 05-28-1999 End: 07-26-2020 History of tobacco use Current smoker [facility] Start: 10-22-2020 End: 11-25-2020 Alcohol intake Ex-drinker (finding) [facility] Start: 08-04-2021 End: 09-26-2024 Tobacco smoking status NHIS Unknown if ever smoked [facility] Start: 1980 Sex Assigned At Female [facility] Start: 04-18-2022 Tobacco Comment social smoker now, estimates 1 pack lasts her two weeks [facility] Start: 05-03-2022 End: 11-23-2023 Tobacco use panel [facility] Adult Depression Screening Assessment 0 [facility] Start: 08-07-2024 Tobacco smoking stat us NHIS Smokes tobacco daily (finding) [facility] Start: 08-16-2024 Sex Female (finding) [facility] NEGATED: Highlighted row Not [facility] Goals Date Patient Goal Desired Activity /State Functional Status Date Assessment Result Facility 01-02-2015 Are you deaf, or do you have serious difficulty hearing No 01/02/2015 8:48 AM Debra Ram LPN No [facility] 01-02-2015 Are you blind, or do you have serious difficulty seeing, even when wearing glasses No 01/02/2015 8:48 AM Debra Ram LPN No [facility] 01-02-2015 Do you have serious difficulty walking or climbing stairs No 01/02/2015 8:48 AM Debra Ram LPN No [facility] 01-02-2015 Do you have difficul ty dressing or bathing No 01/02/2015 8:48 AM ACET Debra Ruff LPN No [facility] 01-02-2015 Because of a physica l, mental, or emotional condition, do you have difficulty doing errands alone such as visiting a physician's office or shopping No 01/02/2015 8:48 AM Debra Ram LPN No [facility] Mental Status Date Assessment Result Facility 06-10-2024 Cognitive function Voice/Name;To [facility]/Radha dickerson [facility] Work Phone: 01-02-2015 Because of a physica l, mental, or emotional condition, do you have serious difficulty concentrating, remembering, or making decisions No 01/02/2015 8:48 AM EDT Debra Rfuf LPN No [facility] Clinical Notes 06-10-2015 to 12-19-2024 Robyn Warner APRN.CLASS [employer] LINEMAN - 12/19/2024 7:00 AM EDTPatient Instructions Note Date & Type Note Facility 12-19-2024 History of Present illness Narrative Some documentation from previous visit of 09/25/2024 [...] and granola S - none D - 4238-1190 protein and veg and small carb - potato/pasta/corn/rice No dessert S - rare - popcorn or ice cream Fluids: water Bedtime - 6623-6698 Eating Disorder binge eating Dietary changes: - [...] from his new company and that their privacy attorney said they have a strong case. [...] lb) LMP 02/25/2017 SpO2 98% BMI 25.37 kg/m PE GENERAL: Pleasant; no acute distress PULMONARY: normal inspiratory effort NEURO: alert and oriented x3 Results: recent labs reviewed with the patient. Outside labs: 12/27/2023 [facility] CBC WNL; CMP WNL; Hgba1c 5.0; Total [...] that continued use is off label for manager long term care management of weight control. The patient is [...] plan. Follow up in 3 months Robyn Warner CNP Advanced Education from the [employer] Medical Decision Making: Problems: Moderate: 1+ chronic illnesses with change and 2+ stable chronic illnesses Data: Unique test(s) ordered: 1 Risk: Moderate: Drug management and Moderate risk from testing/treatment Medical Decision Making Level: 4 - Moderate documented in this encounter [facility] 12-19-2024 Note HNO ID: [id number] Author: ROBYN WARNER APRN.CNP Service: ? Author Type: Nurse Practitioner Type: [...] None Previous Diet (initial appointment): Awake - 50530 B - 629-7 - 30 gm protein shake or granola or fruit with coffee with with flavoring syrup and sweetened creamer. S - 10-1030 pretzels or apple or veg or HB eggs L - 1200 if work - Salad or 1/2 sandwich or soup or pizza/home - protein shake and fruit or veg or yogurt and granola S - none D - 3844-3320 protein and veg and small carb - potato/pasta/corn/rice No dessert S - rare - popcorn or ice cream Fluids: water Bedtime - 7504-7149 Eating Disorder binge eating Dietary changes: - [...] from his new company and that their privacy attorney said they have a strong case. [...] PVC (premature ventricular contraction) Current Outpatient Medications (more content not included)... [facility] 12-17-2024 Instructions Robyn Warner, REJI.CLASS A LINEMAN - 12/17/2024 8:10 PM EDT -- Metformin can interfere with the absorption [...] Snack 1 single svg - 15g protein & 2g carb Two Good Lowfat Estonian Yogurt, Lower Sugar - 12g protein & 2g carb No fruit, vegetables, bread, grain, [...] oz is 28 gm protein Beef, Chicken, [place], Pork, Eli 1 oz 7g Fish, Tuna Fish 1 oz 7g (Starkist tuna packet 2.6 oz 17 gm protein) Seafood (Crabmeat, Shrimp, Lobster) 1 oz 6g Protein shakes (read labels) Premier Protein or generic [employer] Equate, Me[employer] High Performance- 30g protein & 1g carb Premier Protein powder or generic- 30 g protein, 1g carb Fairlife 30 gram protein - 30g protein & 3g carb BOOST Glucose Control Max 30g Protein Nutritional Drink - 30g protein & 1g carb Nurri 30g protein 2g carb Slimfast High Protein - 20g protein & 1g carb Ensure Max Protein Nutrition Shake 30g protein & 2g carb OWYN plant based 100 % vegan no dairy, soy, wheat/gluten 32g protein 0 net carb (not a meal replacement) Premier Protein plant protein powder - 25g protein, 0 sugar/2g carb Vanilla and chocolate (not a meal replacement) Protein AND carbs Beef/[place] Jerky 1 oz dried 10-15g protein - check carb count, can be high if sugar added Slim Devante - 6 gm protein and 4 net carb Great Value original turkey sausage sticks - 7 gm protein and 2 gm carb Monica & Hung (at [facility]) Original smoked sausage sticks - 8 gm protein and 0 carb Imitation Crab Meat 1 oz - 2g protein & 4g carb Milk, skim 2% or 1% 8 oz - 8g protein & 12g carb Fairlife 2% milk 8 oz -13g protein & 6g carb Estonian yogurt Full Fat Estonian Yogurt 1 cup - 20.4g protein & 9.1g carb 2% Estonian Yogurt 1 cup - 22.7g protein & 9.1g carb 0% (fat-free) Estonian Yogurt - 1 cup 24g protein & 9.3g carb Aldi Protein Estonian yogurt single svg - 13/g15g protein & 7g carb Chobani Zero Sugar single svg: - 12g protein & 5g carb Dannon Estonian Light + Fit 1 single svg - 12g protein & 9g carb Oikos Pro single svg - 20g protein & 8g carb Oikos Triple Zero Estonian Nonfat Yogurt 1 single svg - 15g protein & 7g carb :ratio, KETO Friendly Dairy Snack 1 single svg - 15g protein & 2g carb :ratio Protein 1 single svg - 25g protein & 8g carb Two Good Lowfat Estonian Yogurt, [place], Lower Sugar - 12g protein & 2g carb Yoplait Protein 1 single svg 15g protein & 5g carb Dairy Free - [place] unsweetened Estonian almond/soy 15g protein & 3g carb Dairy Free - True Goodness by Nella coconut-based yogurt alternative 1 g protein 1 g net carb 180 phil Drinkable yogurts: Chobani drinkable 15g, 20g and 30g protein & 18 carb (too many carbs for breakfast) Chobani Zero Sugar 10g protein 6g carbs 50 calories Oikos Pro drinkable yogurt 1 single svg - 23g protein & 8g carb :ratio Protein 26g protein 9g carb Cheese each oz Brie 5.9g protein & 0.1g carb Cheddar 7g protein & 0.4g carb Delonte 6.7g protein & 0.7g carb Cream Cheese 1.7g protein & 1.2g carb Rutanet whipped Estonian cream cheese (WM) 2 T 3g protein 2g carb Feta 4g protein & 1.2g carb Mozzarella 6.3g protein & 0.6g carb Parmesan 10g protein & 0.9g carb Italian 7.6g protein & 1.5g carb Cottage Cheese 1/2 c Breakstone 2% 13g protein 7g carb Nandini 2% 13g protein 5 g carb Good Culture 2% 14g protein 3g carb Lactaid 13g protein 5g carb Patel s Low Fat 12g protein & 4g carb Legumes Lentils cup 9g protein & 20g carb Mcdonald beans cup 7g protein & 20g carb Kidney, Black, [place], Cannellini beans cup 8g protein & 20g carb Chickpeas 1/2 c 6g protein & 15g carb Soybeans 1/2 c 14g complete protein & 8.5g carb [place] milk, unsweetened 8 oz 1g protein & 2g carb Soy milk 8 oz 3.5g protein & 1.6g carb Tofu 1/2 cup 10g protein & 2.3g carb Peanut butter, natural 2 Tbsp 7-8g protein & 4g net carbs, 190 calories PB2 powder 2 Tbsp 6g protein & 5g carb Nuts and Seeds per oz Almonds - 5.9g protein & 6.1g carb [place] Nuts - 4.0g protein & 3.4g carb Cashews - 5.1g protein & 9.2g carb Hazelnuts - 4.2g protein & 4.7g carb Hemp seeds/hearts 3 T/30 gms - 9.5 gm complete protein and 2.5 gm carb Peanuts - 7g protein & 4.6g carb Pecans - 2.6g protein & 3.9g carb Pistachios - 5.8g protein & 7.8g carb Pumpkin Seeds - 6.9g protein & 5g carb [place] Seeds - 5.8g protein & 5.6g carb Walnuts - 4.3g protein & 3.8g carb Edamame Beans (soybean) snack 1 pack 11 gm complete protein 2 carb 5 (FIVE) gram carb vegetable options 1 cup raw OR cup cooked: Asparagus Hernandez sprouts Beets Broccoli Brussel sprouts Cabbage Carrots Cauliflower Celery [place] Eggplant Green beans Lettuce Peppers Snap peas Spaghetti squash Spinach Tomato Turnips Zucchini 15 gram carb vegetable options cup cooked corn or hominy corn on the cob, large (5 oz) cup cooked green peas 4.3 gm complete protein cup cooked mcdonald beans 1 small potato or sweet potato cup cooked potato, plain cup cooked sweet potato, plain 1 cup winter squash (pumpkin, acorn, butternut) 1 cup marinara or pasta sauce - check label cup tomato juice cup tomato puree Beans, Seeds, Nuts cup cooked beans (kidney, hernandez, red, green, etc.) cup cooked lentils cup baked beans 4 tablespoons nut butter [...] High Protein Snack Ideas 1. Jerky 2. [place] mix without dried fruit 3. [place] roll-ups 4. Estonian yogurt 5. Veggies and yogurt dip 6. Tuna 7. Hard-boiled eggs 8. Peanut butter with celery 9. Cheese slices/ Cheese Stick 10. Handful of almonds, peanuts or walnuts 11. Cottage Cheese 12. Beef sticks 13. Protein bars 14. Canned [place] 15. Pumpkin seeds 16. Nut butter 17. Protein shake or protein bar 18. Avocado and chicken salad 19. Egg muffins 20. Leftover protein or lunch meat 21. 1/2 c blended cottage cheese or Estonian yogurt with dry ranch/Mrs. Dash/herb seasoning mix [...] carbohydrates leads to a release of Dopamine feel good hormone in our brain So how do you [...] per day Ultra Processed foods are considered Calorie Dense so when a person feels full they [...] are economical and optimized for taste by Reverbeo - they are designed to make you want to keep eating them- they feed common cravings and bypass the mechanisms that tell your brain you are full Benefits of eating Whole Foods and cutting out Ultra Processed Foods Increased concentration and focus (decreased brain fog), improved mood, better sleep, Decrease in fatigue, improvement in gut health, decreased inflammation, Likely WEIGHT LOSS documented in this encounter [facility] 12-01-2024 Discharge summary Note Date/Time December 01, 2024 2:35p [facility] [address] [place] [address]. [address] [place] [address] / REHABILITATION SERVICES DISCHARGE SUMMARY MR#: [id number] Acct: [id number] Name: DO OLSON Rep #: [id number] : 1980 44 From: Harrison Smith PT, ATC Referring Dr.: Dr. Daryl Peralta MD Statu s: REG RCR Insurance: [employer] SELF PAY INSURANCE Patient Information Patient Information: DO OLSON was seen in my office for initial evaluation on 08/29/24. The following Plan of Care was established for this patient: POC Established Initial Frequency: 1-2x /Week Initial Duration: 6-8 weeks Anticipated Interventions Patient/Client Instruction: Educate patient on: Condition and Plan of Care For the Purpose of:: To improve self management Therapeutic Exercise to Include: Strength training, Endurance training, Balance training, Flexibilty training, Gait and locomotor training, Active ROM and Dynamic Lumbar Stabilization For the Purpose of:: To decrease pain, To increase ROM and To improve muscle performance and motor function Cryotherapy (ice pack, ice massage): Yes For the Purpose of:: To decrease pain Last Seen Last Seen: This patient was last seen in our office . Pertinent comments regarding their Physical therapy will appear below: Pt has not returned for greater than 30 days and is discontinued at this time. At this point I will be discontinuing this patient from physical therapy. I would be happy to see this patient again in the future if found appropriate by the physician. Thank you! Harrison Smith PT, ATC Balance/Gait/Functional tests Balance/Special Test Scores Lower Extremity Functional Score: 17 <Electronically signed by Harrison Smith PT, ATC> 12/01/24 1435 CC: KYRA Padgett; Dr. Daryl Peralta MD ~ [facility] Signed [facility] Work Phone: [phone] Discharge summary [facility] [place] [id number] [facility]. [address] [place] [address] / REHABILITATION SERVICES DISCHARGE SUMMARY MR#: [id number] Acct: [id number] Name: DO OLSON Rep #: [id number] : 1980 44 From: Harrison Smith PT, ATC Referring Dr.: Dr. Daryl Peralta MD Statu s: REG RCR Insurance: [employer] SELF PAY INSURANCE Patient Information Patient Information: DO OLSON was seen in my office for initial evaluation on 08/29/24. The following Plan of Care was established for this patient: POC Established Initial Frequency: 1-2x /Week Initial Duration: 6-8 weeks Anticipated Interventions Patient/Client Instruction: Educate patient on: Condition and Plan of Care For the Purpose of:: To improve self management Therapeutic Exercise to Include: Strength training, Endurance training, Balance training, Flexibilty training, Gait and locomotor training, Active ROM and Dynamic Lumbar Stabilization For the Purpose of:: To decrease pain, To increase ROM and To improve muscle performance and motor function Cryotherapy (ice pack, ice massage): Yes For the Purpose of:: To decrease pain Last Seen Last Seen: This patient was last seen in our office . Pertinent comments regarding their Physical therapy willappear below: Pt has not returned for greater than 30 days and is discontinued at this time. At this point I will be discontinuing this patient from physical therapy. I would be happy to see this patient again in the future if found appropriate by the physician. Thank you! Harrison Smith, PT, ATC Balance/Gait/Functional tests Balance/Special Test Scores Lower Extremity Functional Score: 17 12/01/24 1435 CC: KYRA Padgett; Dr. Daryl Peralta MD ~ [facility] Signed [facility]05-01-2025 Instructions* Patient Instructions* Robyn Warner APRN.[facility] - 09/25/2024 3:47 PM EDT - Whole food balanced protein, controlled carbohydrate [...] and some unbreaded meat and/or cheese. No fruit,vegetables, bread, grain, yogurt, Smoothies, etc. Lunch and [...] oz is 28 gm protein Beef, Chicken, [place], Pork, Eli 1 oz 7g Fish, Tuna Fish 1 oz 7g (Starkist tuna packet 2.6 oz 17 gm protein) Seafood (Crabmeat, Shrimp, Lobster) 1 oz 6g Protein shakes (read labels) Premier Protein or generic [employer] Equate, Me[employer] High Performance- 30g protein & 1g carb - meal replacement Premier Protein powder or generic- 30 g protein, 1g carb Fairlife 30 gram protein - 30g protein & 3g carb BOOST Glucose Control Max 30g Protein Nutritional Drink - 30g protein & 1 carb - meal replacement Slimfast High Protein - 20g protein & 1g carb Ensure Max Protein Nutrition Shake 30g protein & 2 carb OWYN plant based 100 % vegan no dairy, soy, wheat/gluten 32g protein 0 net carb (not a meal replacement) Premier Protein plant protein powder - 25g protein, 0 sugar/2g carb Vanilla and chocolate (not a meal replacement) Protein AND carbs Beef/[place] Jerky 1 oz dried 10-15g protein - check carb count, can be high if sugar added Slim Devante - 6 gm protein and 4 net carb Great Value original turkey sausage sticks - 7 gm protein and 2 gm carb Monica & Hung (at [facility]) Original smoked sausage sticks - 8 gm protein and 0 carb Imitation Crab Meat 1 oz - 2g protein & 4g carb Milk, skim 2% or 1% 8 oz - 8g protein & 12g carb Fairlife 2% milk 8 oz -13g protein & 6g car Estonian yogurt Full Fat Estonian Yogurt 1 cup - 20.4g protein & 9.1g carb 2% Estonian Yogurt 1 cup - 22.7g protein & 9.1g carb 0% (fat-free) Estonian Yogurt - 1 cup 24g protein & 9.3g carb Aldi Protein Estonian yogurt single svg - 13/g15g protein & 7g carb Chobani Zero Sugar single svg: - 12g protein & 5g carb Dannon Estonian Light + Fit 1 single svg - 12g protein & 9g carb Oikos Pro single svg - 20g protein & 8g carb Oikos Triple Zero Estonian Nonfat Yogurt 1 single svg - 15g protein & 7g carb :ratio, KETO Friendly Dairy Snack 1 single svg - 15g protein & 2g carb :ratio Protein 1 single svg - 25g protein & 8g carb Two Good Lowfat Estonian Yogurt, [place], Lower Sugar - 12g protein & 2g carb Yoplait Protein 1 single svg 15g protein & 5g carb Dairy Free - [place] unsweetened Estonian almond/soy 15g protein & 3g carb Dairy Free - True Goodness by [facility] coconut-based yogurt alternative 1 g protein 1 g net carb 180 phil Drinkable yogurts: Chobani drinkable 15g, 20g and 30g protein & 18 carb (too many carbs for breakfast) Chobani Zero Sugar 10g protein 6g carbs 50 calories Oikos Pro drinkable yogurt 1 single svg - 23g protein & 8g carb :ratio Protein 26g protein 9g carb Cheese each oz Brie 5.9g protein & 0.1g carb Cheddar 7g protein & 0.4g carb Delonte 6.7g protein & 0.7g carb Cream Cheese 1.7g protein & 1.2g carb [employer] Farms whipped Estonian cream cheese (WM) 2 T 3g protein 2g carb Feta 4g protein & 1.2g carb Mozzarella 6.3g protein & 0.6g carb Parmesan 10g protein & 0.9g carb Italian 7.6g protein & 1.5g carb Cottage Cheese 1/2 c Breakstone 2% 13g protein 7g carb Nandini 2% 13g protein 5 g carb Good Culture 2% 14g protein 3g carb Patel s Low Fat 12g protein & 4g carb Legumes Lentils cup 9g protein & 20g carb Mcdonald beans cup 7g protein & 20g carb Kidney, Black, [place], Cannellini beans cup 8g protein & 20g carb Chickpeas 1/2 c 6g protein & 15g carb Soybeans 1/2 c 14g complete protein & 8.5g carb [place] milk, unsweetened 8 oz 1g protein & 2g carb Soy milk 8 oz 3.5g protein & 1.6g carb Tofu 1/2 cup 10g protein & 2.3g carb Peanut butter, natural 2 Tbsp 7-8g protein & 4g net carbs, 190 calories PB2 powder 2 Tbsp 6g protein & 5g carb Nuts and Seeds per oz Almonds - 5.9g protein & 6.1g carb [place] Nuts - 4.0g protein & 3.4g carb Cashews - 5.1g protein & 9.2g carb Hazelnuts - 4.2g protein & 4.7g carb Hemp seeds/hearts 3 T/30 gms - 9.5 gm complete protein and 2.5 gm carb Peanuts - 7g protein & 4.6g carb Pecans - 2.6g protein & 3.9g carb Pistachios - 5.8g protein & 7.8g carb Pumpkin Seeds - 6.9g protein & 5g carb [place] Seeds - 5.8g protein & 5.6g carb Walnuts - 4.3g protein & 3.8g carb Edamame Beans (soybean) snack 1 pack 11 gm complete protein 2 carb 5 (FIVE) gram carb vegetable options 1 cup raw OR cup cooked: Asparagus Hernandez sprouts Beets Broccoli Brussel sprouts Cabbage Carrots Cauliflower Celery [place] Eggplant Green beans Lettuce Peppers Snap peas Spaghetti squash Spinach Tomato Turnips Zucchini 15 gram carb vegetable options cup cooked corn or hominy corn on the cob, large (5 oz) cup cooked green peas 4.3 gm complete protein cup cooked mcdonald beans 1 small potato or sweet potato cup cooked potato, plain cup cooked sweet potato, plain 1 cup winter squash (pumpkin, acorn, butternut) 1 cup marinara or pasta sauce - check label cup tomato juice cup tomato puree Beans, Seeds, Nuts cup cooked beans (kidney, hernandez, red, green, etc.) cup cooked lentils cup baked beans 4 tablespoons nut butter [...] High Protein Snack Ideas 1. Jerky 2. [place] mix without dried fruit 3. [place] roll-ups 4. Estonian yogurt 5. Veggies and yogurt dip 6. Tuna 7. Hard-boiled eggs 8. Peanut butter with celery 9. Cheese slices/ Cheese Stick 10. Handful of almonds, peanuts or walnuts 11. Cottage Cheese 12. Beef sticks 13. Protein bars 14. Canned [place] 15. Pumpkin seeds 16. Nut butter 17. Protein shake or protein bar 18. Avocado and chicken salad 19. Egg muffins 20. Leftover protein or lunch meat 21. 1/2 c blended cottage cheese or Estonian yogurt with dry ranch/Mrs. Dash/herb seasoning mix to make protein dip- add raw veg 22. 1/2 c blended cottage cheese with 1 Tbsp sugar-free dry cheesecake pudding mix 12g protein 10 carb 23. Pudding - 1 30 gm protein shake with 1/2 pkg sugar-free pudding 4 svgs - 7.8 gm protein, 5 carbeach svg 24. SF Sunkist or Root Beer [...] weight but enhances body composition by decreasing fatmass while preserving fat-free mass During weight loss phase protein consumption (with normal kidney function) should be 1-1.6g proteinper Kilogram of body weight (1kg=2.2lbs) On average [...] carbohydrates leads to a release of Dopamine feel good hormone in our brain So how do you [...] what a proper serving size is, choose nutritiouscarbohydrates and space them out between meals. Always- eat your protein first followed by your non starchy vegetables followed by your carbohydrates- it will help your body with your glucose and insulin regulation Processed Foods vs Whole Foods- Impact on Weight: People who eat Ultra Processed food tend to consume about 500 calories more per day Ultra Processed foods are considered Calorie Dense so when a person feels full they [...] are economical and optimized for taste by Reverbeo - they are designed to make you want to keep eating them- they feed common cravings and bypass the mechanisms that tell your brain you are full Benefits of eating Whole Foods and cutting out Ultra Processed Foods Increased concentration and focus (decreased brain fog), improved mood, better sleep, Decrease in fatigue, improvement in gut health, decreased inflammation, Likely WEIGHT LOSS [facility] of Present illness Narrative* Robyn Warner, REJI.CLASS A LINEMAN - 09/25/2024 3:30 PM EDT Some documentation from previous visit of 07/03/2024 was copied and pasted, documentation has been reviewed and edited as necessary for today's visit. Patient Summary: Do is a 44 year old Female who presents for follow-up evaluation of obesity/weight management to treat and prevent related co- morbidities. 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 No distress. Results: recent labs reviewed with the patient. Outside labs: 12/27/2023 [facility] CBC WNL; CMP WNL; Hgba1c 5.0; Total [...] mg daily 3. Stress incontinence - ICD9: [id number], ICD10: N39.3 - Whole food balanced protein [...] TBW in initial 3 months using phentermine withoutany adverse side effects. Pt has responded well and would like to continue use for weight management. She understands that continued use is off label for penitentiary management of weight control. The patient is [...] patient. Reviewed appropriate action plan to take ifred flag symptoms occur. Patient agreeable to treatment plan. Follow up in 3 months Robyn Warner CNP Advanced Education from the Obesity Medicine Association Medical Decision Making: Problems: Moderate: 1+ chronic illnesses with change Risk: Moderate: Drug management and Moderate risk from testing/treatment Medical Decision Making Level: 4 - Moderate documented in this encounterBlanchard [facility]05-01-[facility]25 NoteHNO ID: [id number] Author: ROBYN WARNER APRN.CNP Service: ? Author Type: Nurse Practitioner Type: [...] None Previous Diet (initial appointment): B - 629- - 30 gm protein shake or granola or fruit with coffee with with flavoring syrup and sweetened creamer. 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 Physical Exam Constitu (more content not included)...[facility]03-10-[facility] Evaluation note* Diagnosis Onset Date Resolution Status Admit Date Right hamstring injury acute [facility] 2024 1:43pm Right hamstring injury acute [facility] 2024 3:21pm Tear of right hamstring acute [facility] 2024 3:21pm [facility] Work Phone: 1(845) 509-969403-10-2025 Evaluation note* Diagnosis Onset Date Resolution Status Admit Date Right hamstring injury acute [facility] 2024 1:43pm Right hamstring injury acute [facility] 2024 3:21pm Tear of right hamstring acute [facility] 2024 3:21pm Left carpal tunnel syndrome acute September 26, 2024 8:47am [facility] Work Phone: 1(684) 669-677502-06-2025 Instructions* Patient Instructions* Robyn Warner APRN.[facility] - 07/03/2024 3:11 PM EST The Role of Exercise in Weight Management No one can deny the psychological and physical benefits of exercise. Regular physical exercise aidsin stress reduction, blood sugar control, cholesterol reduction, and improved sleep. It s also beneficial for weight control. both aerobic and strength training is beneficial for weight control. The ACSM ([employer]) advises 200-300 minutes of moderate- intensity exercise to lose weight and sustain the [...] week for general health. This should include bothaerobic and strength training exercises. However, without calorie restriction, this isn t enough for weight loss or weight maintenance [...] is beneficial for weight control. The ACSM ([employer]) advises 200-300 minutes of moderate-intensity exercise to lose weight and sustain the loss.Moderate-intensity exercises include brisk walking, jogging, using a rowing machine, or doing a 50-60 minute dance class. To hand suture winder the level of intensity you should aim for, think of it this way: a person should be able to carry a conversation but not be able to sing. HIIT (high-intensity interval training) is one method of exercise that may be beneficial to those who are trying to lose weight and are short on time. One way to do HIIT involves doing high-intensityexercise (such as sprinting) for 60 seconds followed [...] while low-intensity exercise (like walking) also resulted inabdominal and visceral fat loss. The latter took [...] exercise was performed with older subjects with obesity.Subjects got randomly assigned to a weight control program along with one of four programs: aerobictraining, resistance training, combined aerobic and resistance training, [...] mass is important to long-term weight control. It s important for individuals who have been sedentary to check with their doctors before embarkingon a new exercise program. While HIIT training may be appropriate for younger individuals and/or those without comorbidities like cardiovascular disease, it s important to find an exercise that s enjoyable. Physical activities could include: Multiple bouts [...] pilates class (in person or at home) documented in this encounterBlanchard Valley [facility] System02-06-2025 History of Present illness Narrative* Robyn Warner APRN.[facility] - 07/03/2024 2:30 PM EST Some documentation from previous visit of 04/09/2024 was copied and pasted, documentation has been reviewed and edited as necessary for today's visit. Patient Summary: Do is a 43 year old Female who presents for follow-up evaluation of obesity/weight management to treat and prevent related co- morbidities. In our previous visits we have discussedlifestyle intervention including a nutrition recommendations and physical [...] (initial appointment): Awake - 5-30 B - 06-7 - 30 gm protein shake or granola or fruit with coffee with with flavoring syrup and sweetened creamer. S - 10-1030 pretzels or apple or veg or HB eggs L - 1200 if work - Salad or 1/2 sandwich or soup or pizza/home - protein shake and fruit or veg or yogurt and granola S - none D - 9686-3743 protein and veg and small carb - potato/pasta/corn/rice No dessert S - rare - popcorn or ice cream Fluids: water Bedtime - 7645-0828 Eating Disorder binge eating Dietary changes: B [...] daily before breakfast for 90 days. 90 tablet0 cyanocobalamin 1,000 mcg/mL inject 1000mg INTRAMUSCULARLY ONCE monthly metFORMIN ER (GLUCOPHAGE XR) 500 mg 24 hr tablet Take 1 tablet by mouth two times a day. 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 No [...] mg daily 3. Stress incontinence - ICD9: [id number], ICD10: N39.3 - Whole food balanced protein [...] patient. Reviewed appropriate action plan to take ifred flag symptoms occur. Patient agreeable to treatment plan. Follow up in 3 and 6 months Robyn Warner CNP Advanced Education from the Obesity Medicine Association Medical Decision Making: Problems: Moderate: 1+ chronic illnesses with change Risk: Moderate: Drug management and Moderate risk from testing/treatment Medical Decision Making Level: 4 - Moderate documented in this encounterBlanchard Valley [facility] System02-06-2025 NoteHNO ID: [id number] Author: ROBYN WARNER APRN.CNP Service: ? Author Type: Nurse Practitioner Type: [...] (initial appointment): Awake - 5-0530 B - 0630-7 - 30 gm protein shake or granola or fruit with coffee with with flavoring syrup and sweetened creamer. S - 10-1030 pretzels or apple or veg or HB eggs L - 1200 if work - Salad or 1/2 sandwich or soup or pizza/home - protein shake and fruit or veg or yogurt and granola S - none D - 2378-7743 protein and veg and small carb - potato/pasta/corn/rice No dessert S - rare - popcorn or ice cream Fluids: water Bedtime - 6503-6963 Eating Disorder binge eating Dietary changes: B [...] reviewed with the patient. Outside labs: 12/27/2023 [facility] CBC WNL; CMP WNL; Hgba1c 5.0; Total Cho (more content not included)...[facility]01-14-2025 [facility] Medical Records Department [address] [facility] [place] [address] History Physical Exam 06/10/24 0717 MR#: [id number] Acct: [id number] Name: DO OLSON Rep #: [id number] : 1980 43 From: Eulogio Mello DO PCP: KYRA Riddle Status:[facility] Location: [place] [address] History and Physical Date of Admission: 06/10/24 [facility] [address] [place] [id number] OFFICE VISIT Date of Service: 03/14/24 MR#: [id number] Acct: [id number] Name: DO OLSON Rep #: [id number] : 1980 Provider: Dr. Eulogio Mello DO Age/Sex: 43/F Location: [facility] [place].[place]DA Status: Signed Intake Vital Signs 12/11/2405:35 Height 5 ft 7 in Intake Visit Reasons: BL HANDS Accompanied by: Self Is patient in pain?: No Allergies No Known Allergies Allergy (Verified 03/14/24 09:19) Medications ???Medication ???Instructions ???Recorded ???Confirmed ???Type Lactobacillus 25 billion cap PO 11/29/21 03/14/24 History cell-Bifido 25 billion ofcq-EUN-qapsk capsule (Women's Probiotic) fexofenadine 180 mg tablet 180 mg PO DAILY PRN 07/20/22 03/14/24 History (Melinda Allergy) fluoxetine 20 mg capsule See Rx Instructions .Route 01/30/23 03/14/24 Rx .COMPLEX #30 CAPSULES PFSH Medical History Acute pharyngitis Accident in home Former smoker Puncture wound of foot, left Obesity (BMI 30.0-34.9) Anxiety Surgical History History of wisdom tooth extraction History of hysterectomy H/O lumpectomy Family History Other Cervical cancer Heart disease Melanoma Mental disorder Myocardial infarction Ovarian cancer Social History Smoking Status: Former smoker alcohol intake: current alcohol intake frequency: holidays/special occasions only substance use type: does not use HPI BL HANDS Details: This documentation accurately reflects the service provided and the decisions made by me, Dr. Eulogio Mello, DO 03/14/24 0809. Part of today???s visit was documented by [ ], acting as scribe. DO OLSON is a 43 year old F 03/14/2024: Here for EMG review. No change in her hands or wrist. Left is still worse and she is right hand dominant. 03/07/2024 visit: 43 year old F here today for bilateral hand numbness and tingling that she has been having for 12 years. When she wakes up her hands are swollen and she wakes up in the middle of the night she gets sharp pain in her wrists. She does take ibuprofen for the pain. The left hand is worse. She states she has tried night bracing and it doesn't give her relief. If she tries to do anything with her hand elevated her hands go numb. She would like to discuss next steps. Patient is right hand dominant. Symptoms worse in the left Ortho Exam General General: Yes no acute distress Neurologic: Yes alert and Yes oriented x3 Psychologic: Yes reasonable and appropriate Right Wrist/Hand Skin/Wound: No Swelling, No Ecchymosis, Yes nail intact and Yes capillary refill normal Right Wrist: No Thenar Atrophy or Hypothenar Atrophy Sensation: Radial: I, Ulnar: I and Median: I WRIST: full spu 85 extension 49 flexion positive tinels +phalens +durken 5/5 abbduction strngth She is not tender and there is no bogginess of her MCPs There is no swelling that I can appreciate in her fingers or hand Left Wrist/Hand Skin/Wound: No Swelling, No Ecchymosis, Yes nail intact, No capillary refill normal and No erythema Left Wrist: Yes Tinel's and Yes Phalen's; No Thenar Atrophy and No Hypothenar Atrophy Sensation: Radial: I, Ulnar: I and Median: I WRIST: 75 extension, passive 82 49 flexion full supination and pronation 5/5 abbduction strngth She is not tender and there is no bogginess of her MCPs There is no swelling that I can appreciate in her fingers or hand Right Elbow ELBOW: negative tinels Left Elbow ELBOW: negative tinels Head: Normocephalic Atraumatic Chest: symmetrical rise, non-labored breathing, no audible wheeze Abdomen: no guarding, non-rigid Supplemental Info 03/12/2024 EMG bilateral upper extremity: 1. Electrodiagnostic findings suggestive of bilateral median mononeuropathy. This is consistent with a mild to moderate bilateral carpal tunnel syndrome. 2. No electrodiagnostic evidence is noted for cervical radiculopathy. Coding Level of Care Code Off vis,est,level 3 Diagnoses Bilateral carpal tunnel syndrome (more content not included)...[facility]11-19-2024 Telephone encounter Note* Telephone Encounter - Liliam Wong RN - 04/15/2024 11:33 AM EST Requested Prescriptions Pending Prescriptions Disp Refills fluconazole (DIFLUCAN) 150 mg tablet 1 tablet 1 Sig: Take 1 tablet by mouth one time only for 1 dose. Recent Office Visits - This Specialty 04/09/2024 Osteoarthritis of left knee, unspecified osteoarthritis type OB/Gynecology Robyn Warner APRN.ANM[facility] 02/13/2024 Osteoarthritis of left knee, unspecified osteoarthritis type OB/Gynecology Robyn Warner APRN.[facility] 12/26/2023 Osteoarthritis of left knee, unspecified osteoarthritis type OB/Gynecology Robyn Warner APRN.[facility] Wong RN [facility]11-19-[facility] Miscellaneous Notes* Telephone Encounter - Liliam Wong RN - 04/15/2024 11:33 AM EST Requested Prescriptions Pending Prescriptions Disp Refills fluconazole (DIFLUCAN) 150 mg tablet 1 tablet 1 Sig: Take 1 tablet by mouth one time only for 1 dose. Recent Office Visits - This Specialty 04/09/2024 Osteoarthritis of left knee, unspecified osteoarthritis type OB/Gynecology Robyn Warner, GENERAL OPHTHALMOLOGIST.[facility] 02/13/2024 Osteoarthritis of left knee, unspecified osteoarthritis type OB/Gynecology Robyn Warner GENERAL OPHTHALMOLOGIST.[facility] 12/26/2023 Osteoarthritis of left knee, unspecified osteoarthritis type OB/Gynecology Robyn Warner, GENERAL OPHTHALMOLOGIST.[facility] Liliam Wong RN documented in this encounterBlanchard Valley [facility] System11-19-2024 Telephone encounter Note * Telephone Encounter - Chantal Alvarez RN - 04/15/2024 8:10 AM EST Last OV 04/09/2024. Requested Prescriptions Pending Prescriptions Disp Refills clotrimazole-betamethasone (LOTRISONE) cream 15 g 0 Sig: Apply 1 application to affected area two times a day. Chantal Alvarez RN [facility]11-19-2024 Miscellaneous Notes* Telephone Encounter - Chantal Alvarez RN - 04/15/2024 8:10 AM EST Last OV 04/09/2024. Requested Prescriptions Pending Prescriptions Disp Refills clotrimazole-betamethasone (LOTRISONE) cream 15 g 0 Sig: Apply 1 application to affected area two times a day. Chantal Alvarez RN documented in this encounterBlanchard Valley Health System11-13-2024 Instructions* Patient Instructions* Robyn Warner APRN.[facility] - 04/09/2024 12:18 PM EST Try Premier Protein Cafe Latte - Whole [...] and some unbreaded meat and/or cheese. No fruit,vegetables, bread, grain, yogurt, Smoothies, etc. Lunch and [...] oz is 28 gm protein Beef, Chicken, [place], Pork, Eli 1 oz 7g Fish, Tuna Fish 1 oz 7g (Starkist tuna packet 2.6 oz 17 gm protein) Seafood (Crabmeat, Shrimp, Lobster) 1 oz 6g Protein shakes (read labels) Premier Protein or generic [employer] Equate, [employer] High Performance- 30g protein & 1g carb - meal replacement Premier Protein powder or generic- 30 gm protein, 1g carb Premier Protein plant protein powder - 25 gm protein, 0 sugar/2 carb Vanilla and chocolate (not a meal replacement) Fairlife 30 gram protein - 30g protein & 3g carb BOOST Glucose Control Max 30g Protein Nutritional Drink - 30g protein & 1 carb - meal replacement Slimfast High Protein - 20g protein & 1g carb Ensure Max Protein Nutrition Shake 30g protein & 2 carb Protein AND carbs Beef/[place] Jerky 1 oz dried 10-15g protein - check carb count, can be high if sugar added Slim Devante - 6 gm protein and 4 net carb Great Value original turkey sausage sticks - 7 gm protein and 2 gm carb Cesar (at [employer]) Original smoked sausage sticks - 8 gm protein and 0 carb Imitation Crab Meat 1 oz - 2g protein & 4g carb Milk, skim 2% or 1% 8 oz - 8g protein & 12g carb Estonian yogurt Full Fat Estonian Yogurt 1 cup - 20.4g protein & 9.1g carb 2% Estonian Yogurt 1 cup - 22.7g protein & 9.1g carb 0% (fat-free) Estonian Yogurt - 1 cup 24g protein & 9.3g carb Aldi Protein Estonian yogurt single svg - 15g protein & 7g carb Chobani Zero Sugar single svg: - 12g protein & 5g carb Dannon Estonian Light + Fit 1 single svg - 12g protein & 9g carb Oikos Pro single svg - 20g protein & 8g carb Oikos Triple Zero Estonian Nonfat Yogurt 1 single svg - 15g protein & 7g carb :ratio, KETO Friendly Dairy Snack 1 single svg - 15g protein & 2g carb :ratio Protein 1 single svg - 25g protein & 8g carb Two Good Lowfat Estonian Yogurt, [place], Lower Sugar - 12g protein & 2g carb Yoplait Protein 1 single svg 15gm protein & 5gm carb Dairy Free - [place] unsweetened Estonian almond/soy 15 gm protein & 3 gm carb Dairy Free - True Goodness by [facility] coconut-based yogurt alternative 1 gm protein 1 gm net carb 180 phil Cheese each oz Brie 5.9g protein & 0.1g carb Cheddar 7g protein & 0.4g carb Delonte 6.7g protein & 0.7g carb Cream Cheese 1.7g protein & 1.2g carb Feta 4g protein & 1.2g carb Mozzarella 6.3g protein & 0.6g carb Parmesan 10g protein & 0.9g carb Italian 7.6g protein & 1.5g carb Cottage Cheese 1/2 c Breakstone 2% 13g protein 7g carb Nandini 2% 13g protein 5 g carb Good Culture 2% 14g protein 3g carb Patel s Low Fat 12g protein & 4g carb Legumes Lentils cup 9g protein & 20g carb Mcdonald beans cup 7g protein & 20g carb Kidney, Black, [place], Cannellini beans cup 8g protein & 20g carb Soybeans 1/2 c 14g complete protein & 8.5g carb [place] milk, unsweetened 8 oz 1g protein & 2g carb Soy milk 8 oz 3.5g protein & 1.6g carb Tofu 1/2 cup 10g protein & 2.3g carb Peanut butter, natural 2 Tbsp 7-8g protein & 4g net carbs, 190 calories PB2 powder 2 Tbsp 6g protein & 5g carb Nuts and Seeds per oz Almonds - 5.9g protein & 6.1g carb [place] Nuts - 4.0g protein & 3.4g carb Cashews - 5.1g protein & 9.2g carb Hazelnuts - 4.2g protein & 4.7g carb Hemp seeds/hearts 3 T/30 gms - 9.5 gm complete protein and 2.5 gm carb Peanuts - 7g protein & 4.6g carb Pecans - 2.6g protein & 3.9g carb Pistachios - 5.8g protein & 7.8g carb Pumpkin Seeds - 6.9g protein & 5g carb [place] Seeds - 5.8g protein & 5.6g carb Walnuts - 4.3g protein & 3.8g carb Edamame Beans (soybean) snack 1 pack 11 gm complete protein 2 carb 5 (FIVE) gram carb vegetable options 1 cup raw OR cup cooked: Asparagus Hernandez sprouts Beets Broccoli Brussel sprouts Cabbage Carrots Cauliflower Celery [place] Eggplant Green beans Lettuce Peppers Snap peas Spaghetti squash Spinach Tomato Turnips Zucchini 15 gram carb vegetable options cup cooked corn or hominy corn on the cob, large (5 oz) cup cooked green peas 4.3 gm complete protein cup cooked mcdonald beans 1 small potato or sweet potato cup cooked potato, plain cup cooked sweet potato, plain 1 cup winter squash (pumpkin, acorn, butternut) 1 cup marinara or pasta sauce - check label cup tomato juice cup tomato puree Beans, Seeds, Nuts cup cooked beans (kidney, hernandez, red, green, etc.) cup cooked lentils cup baked beans 4 tablespoons nut butter [...] High Protein Snack Ideas 1. Jerky 2. [place] mix without dried fruit 3. [place] roll-ups 4. Estonian yogurt 5. Veggies and yogurt dip 6. Tuna 7. Hard-boiled eggs 8. Peanut butter with celery 9. Cheese slices/ Cheese Stick 10. Handful of almonds, peanuts or walnuts 11. Cottage Cheese 12. Beef sticks 13. Protein bars 14. Canned [place] 15. Pumpkin seeds 16. Nut butter 17. Protein shakes 18. Avocado and chicken salad 19. Egg muffins 20. Leftover protein or lunch meat 21. 1/2 c blended cottage cheese or Estonian yogurt with dry ranch/Mrs. Dash/herb seasoning mix to make protein dip 22. 1/2 c blended cottage cheese with 1 Tbsp sugar-free dry cheesecake pudding mix 12g protein 10 carb 23. Pudding - 1 30 gm protein shake with 1/2 pkg sugar-free pudding 4 svgs - 7.8 gm protein, 5 carbeach svg 24. SF Sunkist or Root Beer with 1-2 Tablespoons heavy whipping cream 25. Mini frozen dessert bites - layer protein yogurt, skinny syrup and crushed nuts and freeze ID protein bars Fausto protein bar 28 gm protein documented in this encounterBlanchard Valley Health System11-13-2024 History of Present illness Narrative* Robyn Warner APRN.[facility] - 04/09/2024 11:30 AM EST Some documentation from previous visit of 02/13/2024 was copied and pasted, documentation has been reviewed and edited as necessary for today's visit. Patient Summary: Do is a 43 year old Female who presents for follow-up evaluation of obesity/weight management to treat and prevent related co- morbidities. In our previous visits we have discussedlifestyle intervention including a nutrition recommendations and physical [...] and granola S - none D - 0530-7450 protein and veg and small carb - potato/pasta/corn/rice No dessert S - rare - popcorn or ice cream Fluids: water Bedtime - 9948-3839 Eating Disorder binge eating Dietary changes: B [...] schedule is making it difficult to make nutritiona priority Exercise: decreased due to illness but [...] by mouth two times a day. 180 tablet1 Phentermine HCl 37.5 mg tablet Take 1 tablet by mouth daily before breakfast for 60 days. 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 No distress. Results: recent labs reviewed with the patient. Outside labs: 12/27/2023 [facility] CBC WNL; CMP WNL; Hgba1c 5.0; Total [...] mg daily 3. Stress incontinence - ICD9: [id number], ICD10: N39.3 - Whole food balanced protein [...] patient. Reviewed appropriate action plan to take ifred flag symptoms occur. Patient agreeable to treatment plan. Follow up in 3 and 6 months Robyn Warner CNP Advanced Education from the Obesity Medicine Association Medical Decision Making: Problems: Moderate: 1+ chronic illnesses with change and 2+ stable chronic illnesses Risk: Moderate: Drug management and Moderate risk from testing/treatment Medical Decision Making Level: 4 - Moderate documented in this encounterBlanchard Valley [facility] System11-13-2024 NoteHNO ID: [id number] Author: ROBYN WARNER APRN.CNP Service: ? Author Type: Nurse Practitioner Type: [...] medications: None Previous Diet (initial appointment): - 5-0530 B - 0630-7 - 30 gm protein shake or granola or fruit with coffee with with flavoring syrup and sweetened creamer. 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 Physical Exam Constitutional: She appears healthy. No distress. Results: recent labs reviewed with the patient. Outside labs: 12/27/2023 [facility] CBC WNL; CMP WNL; Hgba1c 5.0; Total Chol 159: HDL 75: LDL 74: TG 50:; TSH 0.52 9 (more content not included)...[facility]09-18-2024 Instructions* Patient Instructions* Robyn Warner APRN.[facility] - 02/13/2024 8:11 AM EDT - Eat primarily whole foods. Limit carbs, especially processed carbs. Eat - Meat, vegetables and fruits with skin on if possible, eggs, cheese. - Do not drink your calories - 30 grams of protein for your first meal of the day decreases your hunger during the day by up to 40 %. Options include: Premier Protein or generic 30 gm protein 1 gm sugar or 5 eggs or 2-3 eggs andsome unbreaded meat and/or cheese. No fruit, vegetables, bread, grain, yogurt, Smoothies, etc. - Walk for 15 minutes immediately after meal - Whole food low-carb diet with 30 g of protein 3 times a day and up to 30 g of carbs at lunch and dinner only. Meals - protein is a goal and carbohydrates are a limit Snacks - all protein or more protein than carbs Protein - no carbs Egg 1 large - 6g Egg white 1 large 3.6g 3 oz is approximately the size of a deck of cards and equals 21 g protein so 4 oz is 28 gm protein Beef, Chicken, [place], Pork, Eli 1 oz 7g Fish, Tuna Fish 1 oz 7g (Starkist tuna packet 2.6 oz 17 gm protein) Seafood (Crabmeat, Shrimp, Lobster) 1 oz 6g Protein shakes (read labels) Premier Protein or generic [employer] Equate, [employer] High Performance- 30g protein & 1g carb - meal replacement Premier Protein powder or generic- 30 gm protein, 1g carb Premier Protein plant protein powder - 25 gm protein, 0 suger/2 carb Vanilla and chocolate (not a meal replacement) Fairlife 30 gram protein - 30g protein & 3g carb BOOST Glucose Control Max 30g Protein Nutritional Drink - 30g protein & 1 carb - meal replacement Slimfast High Protein - 20g protein & 1g carb Ensure Max Protein Nutrition Shake 30g protein & 2 carb Protein AND carbs Beef/[place] Jerky 1 oz dried 10-15g protein - check carb count, can be high if sugar added Slim Devante - 6 gm protein and 4 net carb Great Value original turkey sausage sticks - 7 gm protein and 2 gm carb Monica & Hung (at [employer]) Original smoked sausage sticks - 8 gm protein and 0 carb Imitation Crab Meat 1 oz - 2g protein & 4g carb Milk, skim 2% or 1% 8 oz - 8g protein & 12g carb Estonian yogurt Full Fat Estonian Yogurt 1 cup - 20.4g protein & 9.1g carb 2% Estonian Yogurt 1 cup - 22.7g protein & 9.1g carb 0% (fat-free) [place]ian Yogurt - 1 cup 24g protein & 9.3g carb Aldi Protein Estonian yogurt single svg - 15g protein & 7g carb Chobani Zero Sugar single svg: - 11g protein & 5g carb Dannon Light + Fit 1 single svg - 12g protein & 9g carb Oikos Pro single svg - 20g protein & 8g carb Oikos Triple Zero [place] Nonfat Yogurt 1 single svg - 15g protein & 7g carb :ratio, KETO Friendly Dairy Snack 1 single svg - 15g protein & 2g carb :ratio Protein 1 single svg - 25g protein & 8g carb Two Good Lowfat [place]ian Yogurt, [place], Lower Sugar - 12g protein & 2g carb Yoplait Protein 1 single svg 15gm protein & 5gm carb Dairy Free - [place] 15 gm protein & 4 gm carb Cheese each oz Brie 5.9g protein & 0.1g carb Cheddar Cheese 7g protein & 0.4g carb Mozzarella Cheese 6.3g protein & 0.6g carb [place] Cheese 6.7g protein & 0.7g carb Parmesan Cheese 10g protein & 0.9g carb Cream Cheese 1.7g protein & 1.2g carb Feta 4g protein & 1.2g carb Italian Cheese 7.6g protein & 1.5g carb Patel s Low Fat Cottage Cheese 1/2cup 12g protein & 4g carb Legumes Lentils cup 9g protein & 20g carb Mcdonald beans cup 7g protein & 20g carb Kidney, Black, [place], Cannellini beans cup 8g protein & 20g carb Soybeans 1/2 c 14g complete protein & 8.5g carb [place] milk, unsweetened 8 oz 1g protein & 2g carb Soy milk 8 oz 3.5g protein & 1.6g carb Tofu 1/2 cup 10g protein & 2.3g carb Peanut butter, natural 2 Tbsp 7-8g protein & 4g net carbs, 190 calories PB2 powder 2 Tbsp 6g protein & 5g carb Nuts and Seeds per oz Almonds - 5.9g protein & 6.1g carb [place] Nuts - 4.0g protein & 3.4g carb Cashews - 5.1g protein & 9.2g carb Hazelnuts - 4.2g protein & 4.7g carb Hemp seeds 3 T/30 gms - 9.5 gm complete protein and 2.5 gm carb Peanuts - 7g protein & 4.6g carb Pecans - 2.6g protein & 3.9g carb Pistachios - 5.8g protein & 7.8g carb Pumpkin Seeds - 6.9g protein & 5g carb [place] Seeds - 5.8g protein & 5.6g carb Walnuts - 4.3g protein & 3.8g carb <15 gram carb fruit options Berries have [...] 1/2 cup diced watermelon - 6 carbs 5 (FIVE) gram carb vegetable options 1 cup raw OR cup cooked: Asparagus Hernandez sprouts Beets Broccoli Brussel sprouts Cabbage Carrots Cauliflower Celery [place] Eggplant Green beans Lettuce Peppers Snap peas Spaghetti squash Spinach Tomato Turnips Zucchini 15 gram carb vegetable options cup cooked corn or hominy corn on the cob, large (5 oz) cup cooked green peas cup cooked mcdonald beans 1 small potato or sweet potato cup cooked potato, plain cup cooked sweet potato, plain 1 cup winter squash (pumpkin, acorn, butternut) 1 cup marinara or pasta sauce - check label cup tomato juice cup tomato puree Beans, Seeds, Nuts cup cooked beans (kidney, hernandez, red, green, etc.) cup cooked lentils cup baked beans 4 tablespoons nut butter Grains Brown rice 1/2 c 5.5g protein 24 carb White long-grain rice 1/2 c 2g protein 22.5 carb Quinoa 1/2 c 4 gm complete protein 25 carb Oatmeal, old fashioned 1/2 c 5g protein 27g carb High Protein Snack Ideas 1. Jerky 2. [place] mix without dried fruit 3. [place] roll-ups 4. Estonian yogurt 5. Veggies and yogurt dip 6. Tuna 7. Hard-boiled eggs 8. Peanut butter with celery 9. Cheese slices/ Cheese Stick 10. Handful of almonds, peanuts or walnuts 11. Cottage Cheese 12. Beef sticks 13. Protein bars 14. Canned [place] 15. Pumpkin seeds 16. Nut butter 17. Protein shakes 18. Avocado and chicken salad 19. Egg muffins 20. Leftover protein or lunch meat 21. 1/2 c blended cottage cheese with 1 Tbsp sugar-free dry cheesecake pudding mix 12g protein 10 carb 22. Pudding - 1 30 gm protein shake with 1/2 pkg sugar-free pudding 4 svgs - 7.8 gm protein, 5 carbeach svg 23. SF Sunkist or Root Beer with 1-2 Tablespoons heavy whipping cream 24. Mini frozen dessert bites - layer protein yogurt, skinny syrup and crushed nuts and freeze documented in this encounterBl[facility]-18-[facility] History of Present illness Narrative* Robyn Warner APRN.CNP - 02/13/2024 7:30 AM EDT Some documentation from previous visit of 12/26/2023 was copied and pasted, documentation has been reviewed and edited as necessary for today's visit. Patient Summary: Do is a 43 year old Female who presents for follow-up evaluation of obesity/weight management to treat and prevent related co- morbidities. In our previous visits we have discussedlifestyle intervention including a nutrition recommendations and physical activity optimization. Her last office visit was 2 months ago. Assessment/plan from last visit: -Metformin 500 mg tablet twice a day with meals -Topiramate 25 mg tablet -Phentermine 37.5 mg tablet . BED- mild and in remission Interval History PT specifies the following items as new or significant updates since the last appointment: numbness in hands at night from topiramate causes carpal tunnel pain Trying to decide if it is worth the cost to take small amount of tirzepatide again Weight loss since last vist: Date: Weight: BMI: Medications: 02/13/2024 163 lb 25.53 12/26/2023 160 lb 25.18 Metformin, Topiramate, Phentermine 04/06/2021 210 lb BMI 31.61 Tirzepatide escalation to 15 mg LD 11/2023 WC: 32.5 in 5% weight loss = 153 lbs, 10% weight loss = 145 lbs Anti-obesity medications: meformin Benefit:increased fullness Adverse effects: diarrhea Anti-obesity medications: Phentermine. Benefit:decreased appetite Adverse effects: none Anti-obesity medications: Topiramate. Benefit:decreased food thoughts Adverse effects: numbness in hands at night cause carpal tunnel pain Weight promoting medications: None Previous Diet (initial [...] and granola S - none D - 4590-3886 protein and veg and small carb - potato/pasta/corn/rice No dessert S - rare - popcorn or ice cream Fluids: water Bedtime - 7142-6141 Eating Disorder binge eating Dietary changes: B - 30 gm protein shake and banana S - occas cheese stick L - 30 gm protein shake and small portion of whatever is catered in her office for lunch - chicken breast/lasagne/salad S - none D - meat and veg. Sometimes rice or potato S - none Fluids - protein shakes, water Current Barriers: large portion sizes Exercise: increased - started [employer] Regular exercise: yes Strength/resistance exercise:yes Barriers to regular exercise? no Work-related activity: depends on the day, mostly sedentary unless she is helping on the floor. 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 Sleep: stable 7 hours CrCl cannot be calculated (No successful lab value found.). 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 metFORMIN ER (GLUCOPHAGE XR) 500 mg 24 hr tablet Take 1 tablet by mouth two times a day. 180 tablet1 Phentermine HCl 37.5 mg tablet Take 1 tablet by mouth daily before breakfast for 60 days. 60 tablet0 No current facility-administered medications for this visit. 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 No distress. Results: recent labs reviewed with the patient. Outside labs: 12/27/2023 [facility] CBC WNL; CMP WNL; Hgba1c 5.0; Total Chol 159: HDL 75: LDL 74: TG 50:; TSH 0.52; 01/2023 - CBC, lipids, CBC WNL 09/26/2023 [...] ICD9: 715.96, ICD10: M17.12 (primary diagnosis) - benefits of weight loss discussed - Whole food balanced protein low-carb nutrition - TOPIRAMATE 25 MG TABLET - PHENTERMINE 37.5 MG TABLET - METFORMIN 500 MG TABLET 2. Anxiety - ICD9: 300.00, ICD10: F41.9 - treated with fluoxetine 20 mg daily 3. Stress incontinence - ICD9: OXP1867, ICD10: N39.3 - benefits of weight loss discussed - Whole food balanced protein low-carb nutrition - TOPIRAMATE 25 MG TABLET - PHENTERMINE 37.5 MG TABLET - METFORMIN 500 MG TABLET 4. History of gestational diabetes - ICD9: V12.21, ICD10: Z86.32 - METFORMIN 500 MG TABLET 5. Binge-eating disorder, in full remission, mild - ICD9: 307.1, ICD10: F50.81 - TOPIRAMATE 25 MG TABLET 6. History of obesity - ICD9: V12.29, ICD10: Z86.39 History of Class 1 obesity with BMI 31.61, weight 210 lb, currently overweight - TOPIRAMATE 25 MG TABLET - can adjust the time of dosing to see if numbness at night decreases/resolves - PHENTERMINE 37.5 MG TABLET The patient [...] No suspicious activity was identified. - METFORMIN 500 MG TABLET -- Continue - Whole food balanced protein low-carb nutrition. Specific nutrition suggestions given.- 30 grams of protein for your first meal of the day -- Encouraged the patient to improve her physical activity. An overall goal of 150-200 minutes per week of exercise has been effective in weight loss and maintenance. -- Reviewed that monitoring weight daily and food intake can have a positive impact on overall weight loss and maintenance of weight loss. Activity tracking can be used to stay on target for exercisehowever should not be used to reward oneself She understands that there can be limitations of pharmacotherapy due to contraindications, side effects and cost. Patient was told to contact her insurance company to see what AOMs and supervised behavioral medical appointments are currently covered. Patient understands she will have more success when following a healthy lifestyle. We reviewed continued use of online tracking of daily weights, food journal and if desired physical activity. We reviewed that during management she is [...] patient. Reviewed appropriate action plan to take ifred flag symptoms occur. Patient agreeable to treatment plan. Follow up in 8 weeks Robyn Warner CNP Advanced Education from the [employer] Medical Decision Making: Problems: Moderate: 2+ stable chronic illnesses and 1+ chronic illnesses with change Risk: Moderate: Drug management and Moderate risk from testing/treatment Medical Decision Making Level: 4 - Moderate documented in this encounterBl[facility]ard [facility]09-18-2024 NoteHNO ID: [id number] Author: ROBYN WARNER APRN.CNP Service: ? Author Type: Nurse Practitioner Type: Progress Notes Filed: 02/13/2024 19:50 Note Text: Some documentation from previous visit of 12/26/2023 was copied and pasted, documentation has been [...] 2 months ago. Assessment/plan from last visit: -Metformin 500 mg tablet twice a day with meals -Topiramate 25 mg tablet -Phentermine 37.5 mg tablet . BED- mild and in remission Interval History PT specifies the following items as new or significant updates since the last appointment: numbness in hands at night from topiramate causes carpal tunnel pain Trying to decide if it is worth the cost to take small amount of tirzepatide again Weight loss since last vist: Date: Weight: BMI: Medications: 02/13/2024 163 lb 25.53 12/26/2023 160 lb 25.18 Metformin, Topiramate, Phentermine 04/06/2021 210 lb BMI 31.61 Tirzepatide escalation to 15 mg LD 11/2023 WC: 32.5 in 5% weight loss = 153 lbs, 10% weight loss = 145 lbs Anti-obesity medications: meformin Benefit:increased fullness Adverse effects: diarrhea Anti-obesity medications: Phentermine. Benefit:decreased appetite Adverse effects: none Anti-obesity medications: Topiramate. Benefit:decreased food thoughts Adverse effects: numbness in hands at night cause carpal tunnel pain Weight promoting medications: None Previous Diet (initial appointment): Awake - 09-2930 B - 06-7 - 30 gm protein shake or granola or fruit with coffee with with flavoring syrup and sweetened creamer. S - 10-1030 pretzels or apple or veg or HB eggs L - 1200 if work - Salad or 1/2 sandwich or soup or pizza/home - protein shake and fruit or veg or yogurt and granola S - none D - 4122-9588 protein and veg and small carb - potato/pasta/corn/rice No dessert S - rare - popcorn or ice cream Fluids: water Bedtime - 6326-9761 Eating Disorder binge eating Dietary changes: B - 30 gm protein shake and banana S - occas cheese stick L - 30 gm protein shake and small portion of whatever is catered in her office for lunch - chicken breast/lasagne/salad S - none D - meat and veg. Sometimes rice or potato S - none Fluids - protein shakes, water Current Barriers: large portion sizes Exercise: increased - started [employer] Regular exercise: yes Strength/resistance exercise:yes Barriers to regular exercise? no Work-related activity: depends on the day, mostly sedentary unless she is helping on the floor. 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 Sleep: stable 7 hours CrCl cannot be calculated (No successful lab value found.). 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 metFORMIN ER (GLUCOPHAGE XR) 500 mg 24 hr tablet Take 1 tablet by mouth two times a day. 180 tablet 1 Phentermine HCl 37.5 mg tablet Take 1 tablet by mouth daily before breakfast for 60 days. 60 tablet 0 No current facility-administered medications for this visit. 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 Physical Exam Constitutional: She appears healthy. No distress. Results: recent labs reviewed with the patient. Outside labs: 12/27/2023 [facility] CBC WNL; CMP WNL; Hgba1c 5.0; Total Chol 159: HDL 75: LDL 74: TG 50:; TSH 0.52; 01/2023 - CBC, lipids, CBC WNL 09/26/2023 Hgba1c 5.0 Anti-Obesity Medications >Phentermine: No uncontrolled HTN, No CVD Hx or hx of seizure disorder. No MAO (more content notincluded)...[facility]09-10-2024 Note* Letter - Coordinator, Mammography - 02/05/2024 6:25 AM EDT February 06, 2024 PID: [id number] Do Olson [address] [place] [address] Dear Ms. Olson, We are pleased to inform you that the results of your recent breast imaging exam on 02/01/2024 are normal. Breast tissue can be either dense or not dense. Dense tissue makes it harder to find breast cancer on a mammogram and also raises the risk of developing breast cancer. Your breast tissue is dense. Insome people with dense tissue, other imaging tests in addition to a mammogram may help find cancers. Talk to your healthcare provider about breast density, risks for breast cancer, and your individual situation. Early detection of cancer is very important. We also understand recommendations regarding breast cancer screening are controversial. Please discuss with your primary care provider which strategy is best for you and whether a mammogram is right for you. Your imaging studies and report will be kept on file at [facility] as part of your permanent medical record and are available for your continuing care. Thank you for allowing us to help in meeting your health care needs. Sincerely, Dr. Valdovinos Interpreting Radiologist [facility] (Normal over 40) [facility]09-10-[facility] Miscellaneous Notes* Letter - Coordinator, Mammography - 02/05/2024 6:25 AM EDT February 06, 2024 PID: [id number] Do Olson [address] [place] [address] Dear Ms. Olson, We are pleased to inform you that the results of your recent breast imaging exam on 02/01/2024 are normal. Breast tissue can be either dense or not dense. Dense tissue makes it harder to find breast cancer on a mammogram and also raises the risk of developing breast cancer. Your breast tissue is dense. Insome people with dense tissue, other imaging tests in addition to a mammogram may help find cancers. Talk to your healthcare provider about breast density, risks for breast cancer, and your individual situation. Early detection of cancer is very important. We also understand recommendations regarding breast cancer screening are controversial. Please discuss with your primary care provider which strategy is best for you and whether a mammogram is right for you. Your imaging studies and report will be kept on [facility] at [facility] as part of your permanent medical record and are available for your continuing care. Thank you for allowing us to help in meeting your health care needs. Sincerely, Dr. Valdovinos Interpreting Radiologist [facility] (Normal over 40) documented in this encounterBlanchard Valley Health System09-06-2024 History of Present illness Narrative* Carolin Panda RT(R) - 02/01/2024 1:10 PM EDT Radiology Service Progress Note PATIENT NAME: Do Olson DATE OF SERVICE: February 01, 2024 TIME: 12:52 PM PATIENT IDENTITY VERIFICATION COMPLETED USING TWO (2) IDENTIFIERS: Name and Date of confirmedby patient verbally. FALL SCREENING: Has the patient had 2 falls in the last year or 1 fall with injury or currently using an Ambulatory Assistive Device (Walker, Cane, Wheelchair, Crutches, etc.)? No PATIENT GENDER DATA: Female. status: : No status: NO. PATIENT RELEVANT IMPLANT DATA REVIEWED: Not Applicable PATIENT PRESENTS WITH AN IMPLANTABLE OR ATTACHED NETWORK OPERATIONS SPECIALIST: No RADIOLOGY DEPARTMENT: Mammography PERIPHERAL IV DATA: Not applicable SIGNED BY: SHAY Vidales) February 01, 2024 12:52 PM documented in this encounterBlanchard Valley Health System09-06-2024 NoteHNO ID: [id number] Author: CAROLIN PANDA RT(R) Service: ? Author Type: Technologist Type: Progress Notes Filed: 02/01/2024 12:52 Note Text: Radiology Service Progress Note PATIENT NAME: Do Olson DATE OF SERVICE: February 01, 2024 TIME: 12:52 PM PATIENT IDENTITY VERIFICATION COMPLETED USING TWO (2) IDENTIFIERS: Name and Date of confirmed by patient verbally. FALL SCREENING: Has the patient had 2 falls in the last year or 1 fall with injury or currently using an Ambulatory Assistive Device (Walker, Cane, Wheelchair, Crutches, etc.)? No PATIENT GENDER DATA: Female. status: : No status: NO. PATIENT RELEVANT IMPLANT DATA REVIEWED: Not Applicable PATIENT PRESENTS WITH AN IMPLANTABLE OR ATTACHED NETWORK OPERATIONS SPECIALIST: No RADIOLOGY DEPARTMENT: Mammography PERIPHERAL IV DATA: Not applicable SIGNED BY: RT Sobeida(R) February 01, 2024 12:52 [facility]08-26-2024 Telephone encounter Note* Telephone Encounter - Liliam Wong RN - 01/21/2024 9:15 AM EDT Please file new Mamm with RJ order. Unable to link the order placed on 11/23/23. Liliam Wong RN [facility]08-26-[facility] Miscellaneous Notes* Telephone Encounter - Liliam Wong RN - 01/21/2024 9:15 AM EDT Please file new Mamm with RJ order. Unable to link the order placed on 11/23/23. Liliam Wong RN * Telephone Encounter - Veronica Duff Mammo Tech - 01/21/2024 7:54 AM EDT Could we have a mammorgram order? Pt has appt with us 01/31, Thanks a million documented in this encounterBlanchard Valley Health System08-26-2024 Telephone encounter Note * Telephone Encounter - Veronica Duff Mammo Tech - 01/21/2024 7:54 AM EDT Could we have a mammorgram order? Pt has appt with us 01/31, Thanks a million [facility]2024 NoteHNO ID: [id number] Author: ROBYN WARNER APRN.CLASS A LINEMAN Service: ? Author Type: Nurse Practitioner Type: Progress Notes Filed: 12/26/2023 19:13 Note Text: Patient Summary: Do Olson is a 43 year old female with obesity who presents for an initial evaluation of overweight/obesity to treat and prevent co-morbidities and is interested in open to all options. Motivation for seeking treatment for the disease of overweight/obesity : Wanting to be healthier, feel better, wants to be around for kids and grand kids, does not want to become diabetic (had GDM), heart disease runs in her family. Goal weight: 150 lb and being toned Lowest recall weight: 135 lb - 140 lb. Highest non- recall weight: 213 lb. Patient identified barriers to weight loss: loving food Weight History: She reports a strong family history of obesity and late adulthood weight gain. She states her weight gain is related to the following factors, including weight retention, consumption of unhealthy foods, and tobacco cessation . 04/06/2021 210 lb BMI 31.61 - Started tirzepatide 9 months ago with subsequent weight loss to today's weight of 160 lbs. Last dose Sunday of 15 mg. Would like to transition to other AOM medications to sustain weight loss. - Last Wt 12/26/23 : 72.9 kg (160 lb 12.8 oz) 5% weight loss = 153 lbs, 10% weight loss = 145 lbs WEIGHT GRAPH: Diet/Nutrition overview: Awake - 5-2530 B - 0630-7 - 30 gm protein shake or granola or fruit with coffee with with flavoring syrup and sweetened creamer. S - 10-1030 pretzels or apple or veg or HB eggs L - 1200 if work - Salad or 1/2 sandwich or soup or pizza/home - protein shake and fruit or veg or yogurt and granola S - none D - 2616-4261 protein and veg and small carb - potato/pasta/corn/rice No dessert S - rare - popcorn or ice cream Fluids: water Bedtime - 7692-2238 Quality of diet: 24hr recall suggests healthy diet. Characterization of diet:Structured and cravings. Director Of It Operations of impaired eating habits:Prior to tirzepatide - excessive hunger, lack of satiety, mindlessness , boredom, emotion, and stress Eating Disorder binge eating BINGE EATING ASSESSMENT: A. Recurrent episodes of binge eating. An episode is characterized by: 1. Eating a larger amount of food than normal during a short period of time (within any two hour period): y 2. Lack of control over eating during the binge episode (i.e. the feeling that one cannot stop eating): Y B. Binge eating episodes are associated with three or more of the followin. Eating until feeling uncomfortably full: y 2. Eating large amounts of food when not physically hungry: y 3. Eating much more rapidly than normal: y 4. Eating alone because you are embarrassed by how much you're eating: y 5. Feeling disgusted, depressed, or guilty after overeating:y THREE ASSOCIATED SYMPTOMS MET? y C. Marked distress regarding binge eating is present: y D. Binge eating occurs, on average, at least 1 days a week for three months: n E. The binge eating is not associated with the regular use of inappropriate compensatory behavior (i.e. purging, excessive exercise, etc.) and does not occur exclusively during the course of bulimia nervosa or anorexia nervosa.n PATIENT MEETS ABOVE CRITERIA FOR BINGE EATING DISORDER: y, mild and in remission Severity: Mild 1-3 x per week Moderate 4-7 x per week Severe 8-13 x per week Extreme 14+ per week Cravings: sweets - cookies, chocolate Sleep Duration: 7 hours. 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 No date: Gestational diabetes No date: PVC (premature ventricular contraction) PAST SURGICAL HISTORY Procedure Laterality Date ESSURE EXT HYSTERECTOMY,W/PARTIAL VAGINECTO 2017 Ovaries bilaterally intact EXTRACTION, ERUPTED TOOTH OR EXPOSED ROOT (ELEVATION AND/OR FORCEPS REMOVAL) wisdom teeth IMPLANTS breast FAMILY HISTORY Problem Relation Age of Onset Hypertension Mother Hypertension Father Heart Father [place] Cancer Sister melanoma Heart Maternal Grandmother COPD Maternal Grandfather Diabetes No Family History none Social History Tobacco Use Smoking status: Former Types: Cigarettes Smokeless tobacco: Never Tobacco comments: social smoker now, estimates 1 pack lasts her two weeks Vaping Use Vaping Use: Some days Substance Use Topics Alcohol use: Yes Comment: social Drug use: No AOM Medications: Tirzepatide (Mounjaro) Weight Promoting Medications: None Diet/weight loss History: Past weight loss attempts? anti-obesity medications Tirzepatide (Mounjaro). Caloric restriction, Exercise/increased activity, Low Carbohydrate diet, Low Fat diet, and Medications such as Tirzepatide - feels she has done the be (more content not included)...[facility]2024 History of Present illness Narrative* Robyn Warner APRN.[facility] - 12/25/2023 12:21 PM EDT Images from the original note were not included. Patient Summary: Do Olson is a 43 year old female with obesity who presents for an initial evaluation of overweight/obesity to treat and prevent co-morbidities and is interested in open to all options. Motivation for seeking treatment for the disease of overweight/obesity : Wanting to be healthier, feel better, wants to be around for kids and grand kids, does not want to become diabetic (had GDM), heart disease runs in her family. Goal weight: 150 lb and being toned Lowest recall weight: 135 lb - 140 lb. Highest non- recall weight: 213 lb. Patient identified barriers to weight loss: loving food Weight History: She reports a strong family history of obesity and late adulthood weight gain. She states her weight gain is related to the following factors, including weight retention, consumption of unhealthy foods, and tobacco cessation . 04/06/2021 210 lb BMI 31.61 - Started tirzepatide 9 months ago with subsequent weight loss to today's weight of 160 lbs. Last dose Sunday of 15 mg. Would like to transition to other AOM medications to sustain weight loss. - Last Wt 12/26/23 : 72.9 kg (160 lb 12.8 oz) 5% weight loss = 153 lbs, 10% weight loss = 145 lbs WEIGHT GRAPH: Diet/Nutrition overview: B - 30- - 30 gm protein shake or granola or fruit with coffee with with flavoring syrup and sweetened creamer. S - 10-1030 pretzels or apple or veg or HB eggs L - 1200 if work - Salad or 1/2 sandwich or soup or pizza/home - protein shake and fruit or veg or yogurt and granola S - none D - [id number] protein and veg and small carb - potato/pasta/corn/rice No dessert S - rare - popcorn or ice cream Fluids: water Bedtime - [id number] Quality of diet: 24hr recall suggests healthy diet. Characterization of diet:Structured and cravings. [employer] of impaired eating habits:Prior to tirzepatide - excessive hunger, lack of satiety, mindlessness , boredom, emotion, and stress Eating Disorder binge eating BINGE EATING ASSESSMENT: A. Recurrent episodes of binge eating. An episode is characterized by: 1. Eating a larger amount of food than normal during a short period of time (within any two hour period): y 2. Lack of control over eating during the binge episode (i.e. the feeling that one cannot stop eating): Y B. Binge eating episodes are associated with three or more of the followin. Eating until feeling uncomfortably full: y 2. Eating large amounts of food when not physically hungry: y 3. Eating much more rapidly than normal: y 4. Eating alone because you are embarrassed by how much you're eating: y 5. Feeling disgusted, depressed, or guilty after overeating:y THREE ASSOCIATED SYMPTOMS MET? y C. Marked distress regarding binge eating is present: y D. Binge eating occurs, on average, at least 1 days a week for three months: n E. The binge eating is not associated with the regular use of inappropriate compensatory behavior (i.e. purging, excessive exercise, etc.) and does not occur exclusively during the course of bulimia nervosa or anorexia nervosa.n PATIENT MEETS ABOVE CRITERIA FOR BINGE EATING DISORDER: y, mild and in remission Severity: Mild 1-3 x per week Moderate 4-7 x per week Severe 8-13 x per week Extreme 14+ per week Cravings: sweets - cookies, chocolate Sleep Duration: 7 hours. 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 No date: Gestational diabetes No date: PVC (premature ventricular contraction) PAST SURGICAL HISTORY Procedure Laterality Date ESSURE EXT HYSTERECTOMY,W/PARTIAL VAGINECTO 2017 Ovaries bilaterally intact EXTRACTION, ERUPTED TOOTH OR EXPOSED ROOT (ELEVATION AND/OR FORCEPS REMOVAL) wisdom teeth IMPLANTS breast FAMILY HISTORY Problem Relation Age of Onset Hypertension Mother Hypertension Father Heart Father [place] Cancer Sister melanoma Heart Maternal Grandmother COPD Maternal Grandfather Diabetes No Family History none Social History Tobacco Use Smoking status: Former Types: Cigarettes Smokeless tobacco: Never Tobacco comments: social smoker now, estimates 1 pack lasts her two weeks Vaping Use Vaping Use: Some days Substance Use Topics Alcohol use: Yes Comment: social Drug use: No AOM Medications: Tirzepatide (Mounjaro) Weight Promoting Medications: None Diet/weight loss History: Past weight loss attempts? anti-obesity medications Tirzepatide (Mounjaro). Caloric restriction, Exercise/increased activity, Low Carbohydrate diet, Low Fat diet, and Medications such as Tirzepatide - feels she has done the best with this, she just says the cost is getting to be too much. Has lost 50+ lbs. Exercise: Regular exercise: yes (not curently due to cracked ribs) Strength/resistance exercise:yes Barriers to regular exercise? no Work-related activity: depends on the day, mostly sedentary unless she is helping on the floor. 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 Current Contraception: hysterectomy Obesity ROS/ FHx GEN: Fatigue:yes occasionally CV: h/o palpitations/cardiac arrhythmia, Chest pain: no Hx PVC - EKG and Holter monitor normal HTN:no PULM: Asthma:no GI: GERD:no ; Gallstones:no ; Fatty liver disease:no Pancreatitis: no MSK: Joint Pain:no : Nephrolithiasis: no Symptoms of PCOS: no NEURO: Migraines/TRUJILLO: no; H/o seizures: no Glaucoma:no; Cataracts no Symptoms of or History of pseudotumor cerebri:no Family or personal History of MEN2 or Medullary thyroid cancer: no PE BP 110/62 Pulse 73 Ht 170.2 cm (5' 7) Wt 72.9 kg (160 lb 12.8 oz) LMP 02/25/2017 SpO2 99% BMI 25.18 kg/m Waist Circumference: 32.5 in GENERAL: Female in NAD. Mixed central and gluteofemoral adiposity. SKIN: acanthosis nigricans no, Skin tags: no Hirsutism: no HEENT: PERRL, No supraclavicular adiposity. No dorsal adiposity. RESPIRATORY: CBTA CARDIAC: RRR ABDOMEN: Protuberant ; EXTREMITIES: peripheral edema: no Results: reviewed with the patient Outside labs: 01/2023 - CBC, lipids, CBC WNL 09/26/2023 [...] > 30. No contraindications or medication interactions. Impression: Do Olson is a 43 year old Female with Class I obesity BMI 31.61 currently overweight (Pre-obesity) (Body mass index is 25.18 kg/m .) who has late adulthood obesity with 50+ lb weight loss with tirzepatide velez pay. The causes of her obesity are multifactorial, biological, psychological and social and environmental. Specific factors include increased consumption of high calorie/process foods,post weight retention, and smoking cessation. She has no significant weight-related medical comorbidities which increase her cardiovascular mortality risk. There are no additional metabolic obesity complications. Other medical conditions as above. Regarding her lifestyle, as above, she has a few behavioral contributors ; her physical activity issuboptimal. Overall, it is clear that her quality of life is mildly compromised by her weight. It is likely a combination of weight loss therapies will be needed. She appears motivated today. ASSESSMENT/PLAN: 1. Osteoarthritis of left knee, unspecified osteoarthritis type - ICD9: 715.96, ICD10: M17.12 (primary diagnosis) - benefits of weight loss discussed - Whole food balanced protein low-carb nutrition - TOPIRAMATE 25 MG TABLET - PHENTERMINE 37.5 MG TABLET - METFORMIN 500 MG TABLET 2. Anxiety - ICD9: 300.00, ICD10: F41.9 - treated with fluoxetine 20 mg daily 3. Stress incontinence - ICD9: [id number], ICD10: N39.3 - benefits of weight loss discussed - Whole food balanced protein low-carb nutrition - TOPIRAMATE 25 MG TABLET - PHENTERMINE 37.5 MG TABLET - METFORMIN 500 MG TABLET 4. History of gestational diabetes - ICD9: V12.21, ICD10: Z86.32 - METFORMIN 500 MG TABLET 5. Binge-eating disorder, in full remission, mild - ICD9: 307.1, ICD10: F50.81 - TOPIRAMATE 25 MG TABLET 6. Screening cholesterol level - ICD9: V77.91, ICD10: Z13.220 - LIPID PANEL BASIC 7. Screening for diabetes mellitus - ICD9: V77.1, ICD10: Z13.1 - INSULIN ASSAY BLOOD - HEMOGLOBIN A1C - COMPREHENSIVE METABOLIC PANEL 8. Screening for metabolic disorder - ICD9: V77.99, ICD10: Z13.228 - COMPREHENSIVE METABOLIC PANEL 9. Screening for thyroid disorder - ICD9: V77.0, ICD10: Z13.29 - THYROID STIMULATING HORMONE 10. Screening for deficiency anemia - ICD9: V78.1, ICD10: Z13.0 - CBC 11. History of obesity in adulthood - ICD9: V12.29, ICD10: Z86.39 Plan: History of Class 1 obesity with BMI 31.61, weight 210 lb, currently overweight - Started tirzepatide 9 months ago with subsequent weight loss to today's weight of 160 lbs. Last dose Sunday of 15 mg. Would like to transition to other AOM medications to sustain weight loss. - Based on the severity and resistance of the obesity/overweight with co- morbidities, I believe a combination of behavioral and pharmacological intervention is the best and most appropriate long termtherapeutic option. - TOPIRAMATE 25 MG TABLET Topiramate. Discussed risks/benefits with the patient. Patient aware that this is an off-label use of the medication. Begin with 25 mg at bedtime and will increase to 2 tablets as tolerated. Will notify me if experiencing any adverse effects. Denies history of kidney stones, seizures or glaucoma. No hx of migraines No history of poor sleep. Advised not to mix with alcohol. Educated on increased risk for drowsiness, dizziness, fatigue, kidney stones, osteoporosis and increased eye pressure. Patient of childbearing age. Discussed the risk of defects with topiramate and the need for double control methods as well as regular tests. Contraception: hysterectomy - PHENTERMINE 37.5 MG TABLET Phentermine. Risk/benefits discussed at length including potential side effects of increased anxiety, insomnia, increased heart rate, and increased blood pressure. I have asked the patient to monitorblood pressure and avoid any stimulants (in the form of caffeinated beverages like coffee, tea, sports drinks) initially. Patient denies history of arrhythmias, coronary artery disease (atherosclerosis), heart failure, pulmonary hypertension, stroke, valvular heart disease (prolapse, regurgitation,stenosis). The patient is currently enrolled in a [...] No suspicious activity was identified. - METFORMIN 500 MG TABLET Agreeable to begin Metformin 500 mg with dinner daily x 1 week. If tolerating will increase to 2 tablets with dinner daily. We discussed common side effects of this medication including nausea, changes in bowel habits, abdominal discomfort, and flatulence. Discussed taking it with food and complication of lactic acidosis and signs/symptoms and medication handout given. Further instructed that if she experiences malaise,muscle aches, difficulty breathing, or severe abdominal pain to seek immediate medical attention. - Lab orders for CBC, CMP, Lipids, TSH and HgbA1c faxed to [facility] -- We discussed several strategies to track food intake and increase mindfulness around eating while will decrease calorie intake. She was counseled on the following: Eating primarily whole foods. Limit carbs, especially processed carbs. Do not drink your calories 30 grams of protein for breakfast decreases your hunger during the day by up to 40 % Premier Protein or generic 30 gm protein 1 gm sugar Walk for 15 minutes immediately a meal. - Recommended whole food low-carb diet with 30 g of protein 3 times a day and 30 g of carbs at lunch and dinner only. Given tracking log. - Given 15 gram carb whole food and protein suggestion list. - Given protein snack ideas -- Encouraged the patient to improve her physical activity. Although cardiovascular exercise is most beneficial for weight loss initially, we discussed healthy muscle from a combination of resistancetraining and cardiovascular exercise is the best penitent[facility] plan. An overall goal of 150-200 minutesper week of exercise has been effective in weight loss and maintenance. -- Reviewed that monitoring weight daily and food intake can have a positive impact on overall weight loss and maintenance of weight loss. Activity tracking can be used to stay on target for exercisehowever should not be used to reward oneself She understands that there can be limitations of pharmacotherapy due to contraindications, side effects and cost. Patient was told to contact her insurance company to see what AOMs and supervised behavioral medical appointments are currently covered. Patient understands she will have more success when following a healthy lifestyle. We reviewed continued use of online tracking of daily weights, food journal and if desired physical activity. We reviewed that during management she is [...] patient. Reviewed appropriate action plan to take ifred flag symptoms occur. Patient agreeable to treatment plan. -- follow-up visit in 6 weeks for management of above interventions Robyn Warner CNP Advanced Education from the [employer]esity [employer] Association I spent a total of 79 minutes on the date of the service which included preparing to see the patient, [id number] patient care, completing clinical documentation, obtaining and/or reviewing separately obtained history, performing a medically appropriate examination, counseling and educating the pat ient/family/caregiver, and ordering medications, tests, or procedures. documented in [facility]Bl[facility] Instructions* Patient Instructions* Robyn Warner APRN.[facility] - 12/25/2023 12:21 PM EDT Images from the original note were not included. Weight Management: You have taken the initiative to become a healthier version of yourself and to decrease the risks that come with the diagnosis of obesity or being overweight. We are happy to help you along this journey but know this is a lifetime commitment to yourself. Losing just 3-10 % of your body weight can decrease your risks of many other serious diseases like diabetes, heart disease, osteoarthritis, hypertension, cancer and so many others. During this time you will have triumphs, setbacks and plateaus-your body will fight against you but we are here to give you the tools and the resources to continue to reach your goals. We recommend during this time that you track your weight daily or at least five times per week as well as tracking your nutrition. You may track your activity but do not use hitting your fitness goals as a reward system as this can derail your success. We recommend weekly physical activity of 150-200 min/week-although physical exercise, this will be especially important for weight maintenance. Exe rcise can have many other benefits including improving insulin resistance, improving balance, bone health, improving mental health and cardiovascular health. Do not feel overwhelmed - we will discussthis more at your visits. Our time will be limited with each visit but we will try to touch on factors that are important to you and to your overall goals. We will try to set a goal at the end of each visit and then decide onwhat we want to accomplish with your upcoming visits. On your After Visit Summary (AVS), we will provide you with information that may be useful during this journey so please remember to read the information given. Check your AVS a few days after your appointment because we may have added more information specifically for you. Remember that if you are placed on medications, they are tools that can help you succeed but you must put in the work. Your nutrition will be the main factor. There are medications that work well forsome and not for others- so it may take time to find the right combination for your body's needs. Please remember that factors such as other health co-morbidities one might have, as well as insurance coverage, will play a factor in determining which medications you can take. Most of the newer medications that are all the craze ,injectables, may not be covered or will only be covered if you fail months of oral medications or have Type 2 diabetes so please be patient with the process. It would be beneficial for you to determine what your insurance covers as far as Anti-Obesity Medications (AOMs), Nutritional Counseling, behavioral intervention and weight loss surgery. Please call your health insurance prior to your first appointment and write down coverage for each of those therapies. Most importantly, remember that ultimately our goal is to help you get to a healthier weight which will decrease your overall health risks. We will work together as a team and try to reach your personalized goals as well. Follow-up appointments Please arrive to follow-up visits a minimum of 15 minutes prior to your appointment. Follow-up weight management visits can be virtual. You will need to report a current blood pressure, heart rate (pulse) and weight at the beginning of each virtual appointment so you will need to have a reliable BP cuff, either wrist or upper arm. If you need to reschedule your appointment time or switch from an in-office visit to a virtual visit or vice versa, you need to call our office as we have designated appointment slots. This should not be done on [facility] as you will not be scheduled appropriately and will need to be rescheduled. We appreciate that you have entrusted us with your health and know that we are committed to this process with you. Sincerely, Evelin Rm MD, SAMUEL GEE & Robyn Warner CNP Advanced Education from the Obesity Medicine Association Obesity Obesity is a disease that affects nearly one-third of the adult [place] population (approximately 60 million). The number of overweight and obese Americans has continued to increase since 1960, a trend that is not slowing down. Today, 64.5 percent of adult Americans (about 127 million) are categorized as being overweight or obese. Each year, obesity causes at least 300,000 excess deaths in the [place] and healthcare costs of [place] adults with obesity amount to approximately $100 billion. (AOA) Obesity is a complex, multi-factorial chronic disease involving: Environmental (social and cultural) The tendency toward obesity is a result of our environment: lack of physical activity along with high-calorie, low-cost foods. Home, work, school, and even the community can inhibit a healthy lifestyle. Genetic (Hereditary plays a large role in determining how susceptible people are to overweight and obesity). Genes also influence how the body gasca calories for energy and stores fat. Physiologic, metabolic, behavioral (eating too many calories while not getting enough exercise) andpsychological components. It is the second leading cause of preventable in the [place] Behavioral changes brought on by economic development, modernization and urbanization have been linked to therise in global obesity. Calculating BMI Body Mass Index (BMI) is a measurement tool used to determine excess body weight. Overweight is defined as a BMI of 25 or more, obesity is 30 or more, and severe obesity is 40 or more. You can visit www.nhlbi.nih.gov to estimate your BMI. Obesity Related Health Conditions The morbidity and mortality risk from being overweight is proportional to its degree. Individuals with morbid obesity, therefore, have the highest risk for developing numerous illnesses that often reduce mobility and quality of life due to their excess weight. In particular, type 2 diabetes, gallbladder disease and osteoarthritis have been found to increase concurrently with higher BMI. Prematuredeath, a 20-year shorter life span, has also been found in individuals with morbid obesity. All of the systems that make the body function are affected by morbid obesity. Type 2 diabetes Gallbladder disease and gallstones Liver disease Osteoarthritis, a disease in which the joints deteriorate. This is possibly the result of excess weight on the joints. Gout, another disease affecting the joints Pulmonary (breathing) problems, including sleep apnea in which a person can stop breathing for a short time during sleep Reproductive problems in women, including menstrual irregularities and infertility Gastroesophageal reflux/heartburn Hypertension Heart Disease Depression Psychological disorders/social impairments Urinary Stress Incontinence Obesity is also linked to higher rates of certain types of cancer. Obese men are more likely than non-obese men to from cancer of the colon, rectum, or prostate. Obese women are more likely than non-obese women to from cancer of the gallbladder, breast, uterus, cervix, or ovaries https://my.[facility].org/health/diseases/92289-qqwokw-jetxegjiyz-fbozsso-g ducation - Eat primarily whole foods. Limit carbs, especially processed carbs. Eat - Meat, vegetables and fruits with skin on if possible, eggs, cheese. - Do not drink your calories - 30 grams of protein for your first meal of the day decreases your hunger during the day by up to 40 %. Options include: Premier Protein or generic 30 gm protein 1 gm sugar or 5 eggs or 2-3 eggs andsome unbreaded meat and/or cheese. No fruit, vegetables, bread, grain, yogurt, Smoothies, etc. - Walk for 15 minutes immediately after meal. - Whole food low-carb diet with 30 g of protein 3 times a day and up to 30 g of carbs at lunch and dinner only. Meals - protein is a goal and carbohydrates are a limit Snacks - all protein or more protein than carbs B - 0630-7 - 30 gm protein shake or granola or fruit with coffee with with flavoring syrup and sweetened creamer. - switch to SF syrup and HWC/protein shake S - 10-1030 pretzels or apple or veg or HB eggs L - 1200 if work - Salad add protein or 1/2 sandwich (try low-carb wrap) or soup or pizza/home - protein shake and fruit or veg or yogurt and granola S - none D - 7965-2656 protein and veg and small carb - potato/pasta/corn/rice No dessert S - rare - popcorn or ice cream - if you eat, add protein Protein - no carbs Egg 1 large - 6g Egg white 1 large 3.6g 3 oz is approximately the size of a deck of cards and equals 21 g protein so 4 oz is 28 gm protein Beef, Chicken, [place], Pork, Eli 1 oz 7g Fish, Tuna Fish 1 oz 7g (Starkist tuna packet 2.6 oz 17 gm protein) Seafood (Crabmeat, Shrimp, Lobster) 1 oz 6g Protein shakes (read labels) Premier Protein or generic [employer] Equate, [facility] High Performance- 30g protein & 1g carb - meal replacement Premier Protein powder or generic- 30 gm protein, 1g carb Premier Protein plant protein powder - 25 gm protein, 0 suger/2 carb Vanilla and chocolate (not a meal replacement) Fairlife 30 gram protein - 30g protein & 3g carb BOOST Glucose Control Max 30g Protein Nutritional Drink - 30g protein & 1 carb - meal replacement Slimfast High Protein - 20g protein & 1g carb Ensure Max Protein Nutrition Shake 30g protein & 2 carb Protein AND carbs Beef/[place] Jerky 1 oz dried 10-15g protein - check carb count, can be high if sugar added Slim Devante - 6 gm protein and 4 net carb Great Value original turkey sausage sticks - 7 gm protein and 2 gm carb Monica & Hung (at [employer]) Original smoked sausage sticks - 8 gm protein and 0 carb Imitation Crab Meat 1 oz - 2g protein & 4g carb Milk, skim 2% or 1% 8 oz - 8g protein & 12g carb Estonian yogurt Full Fat [place] Yogurt 1 cup - 20.4g protein & 9.1g carb 2% [place] Yogurt 1 cup - 22.7g protein & 9.1g carb 0% (fat-free) [place] Yogurt - 1 cup 24g protein & 9.3g carb Aldi Protein [place] yogurt single svg - 15g protein & 7g carb Chobani Zero Sugar single svg: - 11g protein & 5g carb Dannon Light + Fit 1 single svg - 12g protein & 9g carb [place] Pro single svg - 20g protein & 8g carb [place] Triple Zero [place] Nonfat Yogurt 1 single svg - 15g protein & 7g carb :ratio, KETO Friendly Dairy Snack 1 single svg - 15g protein & 2g carb :ratio Protein 1 single svg - 25g protein & 8g carb Two Good Lowfat [place] Yogurt, [place], Lower Sugar - 12g protein & 2g carb Yoplait Protein 1 single svg 15gm protein & 5gm carb Cheese each oz Brie 5.9g protein & 0.1g carb Cheddar Cheese 7g protein & 0.4g carb Mozzarella Cheese 6.3g protein & 0.6g carb [place] Cheese 6.7g protein & 0.7g carb Parmesan Cheese 10g protein & 0.9g carb Cream Cheese 1.7g protein & 1.2g carb Feta 4g protein & 1.2g carb Italian Cheese 7.6g protein & 1.5g carb Patel s Low Fat Cottage Cheese 1/2cup 12g protein & 4g carb Legumes Lentils cup 9g protein & 20g carb Mcdonald beans cup 7g protein & 20g carb Kidney, Black, [place], Cannellini beans cup 8g protein & 20g carb Soybeans 1/2 c 14g complete protein & 8.5g carb [place] milk, unsweetened 8 oz 1g protein & 2g carb Soy milk 8 oz 3.5g protein & 1.6g carb Tofu 1/2 cup 10g protein & 2.3g carb Peanut butter, natural 2 Tbsp 7-8g protein & 4g net carbs, 190 calories PB2 powder 2 Tbsp 6g protein & 5g carb Nuts and Seeds per oz Almonds - 5.9g protein & 6.1g carb [place] Nuts - 4.0g protein & 3.4g carb Cashews - 5.1g protein & 9.2g carb Hazelnuts - 4.2g protein & 4.7g carb Hemp seeds 3 T/30 gms - 9.5 gm complete protein and 2.5 gm carb Peanuts - 7g protein & 4.6g carb Pecans - 2.6g protein & 3.9g carb Pistachios - 5.8g protein & 7.8g carb Pumpkin Seeds - 6.9g protein & 5g carb [place] Seeds - 5.8g protein & 5.6g carb Walnuts - 4.3g protein & 3.8g carb <15 gram carb fruit options Berries have [...] 1/2 cup diced watermelon - 6 carbs 5 (FIVE) gram carb vegetable options 1 cup raw OR cup cooked: Asparagus Hernandez sprouts Beets Broccoli Brussel sprouts Cabbage Carrots Cauliflower Celery [place] Eggplant Green beans Lettuce Peppers Snap peas Spaghetti squash Spinach Tomato Turnips Zucchini 15 gram carb vegetable options cup cooked corn or hominy corn on the cob, large (5 oz) cup cooked green peas cup cooked mcdonald beans 1 small potato or sweet potato cup cooked potato, plain cup cooked sweet potato, plain 1 cup winter squash (pumpkin, acorn, butternut) 1 cup marinara or pasta sauce - check label cup tomato juice cup tomato puree Beans, Seeds, Nuts cup cooked beans (kidney, hernandez, red, green, etc.) cup cooked lentils cup baked beans 4 tablespoons nut butter Grains Brown rice 1/2 c 5.5g protein 24 carb White long-grain rice 1/2 c 2g protein 22.5 carb Quinoa 1/2 c 4 gm complete protein 25 carb Oatmeal, old fashioned 1/2 c 5g protein 27g carb High Protein Snack Ideas 1. Jerky 2. [place] mix without dried fruit 3. [place] roll-ups 4. Estonian yogurt 5. Veggies and yogurt dip 6. Tuna 7. Hard-boiled eggs 8. Peanut butter with celery 9. Cheese slices/ Cheese Stick 10. Handful of almonds, peanuts or walnuts 11. Cottage Cheese 12. Beef sticks 13. Protein bars 14. Canned [place] 15. Pumpkin seeds 16. Nut butter 17. Protein shakes 18. Avocado and chicken salad 19. Egg muffins 20. Leftover protein or lunch meat 21. 1/2 c blended cottage cheese with 1 Tbsp sugar-free dry cheesecake pudding mix 12g protein 10 carb 22. Pudding - 1 30 gm protein shake with 1/2 pkg sugar-free pudding 4 svgs - 7.8 gm protein, 5 carbeach svg 23. SF Sunkist or Root Beer with 1-2 Tablespoons heavy whipping cream TOPIRAMATE -- Take 25mg daily x 1-2 weeks -- Then increase to 50mg daily after the initial two weeks so long as you are not having any side effects. -- You can take the tablet it at night at first (because of potential sleepiness side effects), butthen you can take earlier around dinner after you have started the medication for a few days. You also may be able to take it in the morning if easier. -- We may increase the dose to 75mg a few weeks later if there is no change with 50mg, Typically the maximum medication dose would be 150mg daily but rarely would we need to titrate medication dose that high. -- The exact mechanism of topiramate on energy balance regulation is not clearly understood. Topiramate affects body mass index, fasting gmnvvjo-gs-majgmwc ratio, and serum leptin and cortisol levels. It has shown to improve hypothalamic insulin and leptin signaling and action and reduce obesity inmice. These changes may be corrigan factors in weight loss due to topiramate. If at any point you are feeling the effects of the medication you can stay at that dose or if you experience side effects you can decrease it to the previous dose. -- Please see the handout to review the potential side effects and to explain this further -- Please let me know if you experience any changes in your vision, worsening depression or mood problems, or an increase in suicidal thoughts or behaviors. --This medication should NOT be combined with alcohol. Risks of drinking alcohol while taking this medication include mental and psychological side effects, including confusion, dizziness, drowsiness, and depression. -- There is an increased risk for oral clefts when topiramate is used in the first trimester of . -- There is a possible decrease in contraceptive efficacy when using estrogen- containing control with topiramate, please use a back up form of control such as condoms and monitor for throughout treatment. -- If you decide that you would like to get or if you have any of these side effects please let me know and we can safely discontinue the medication. - If you are on loop diuretic or thiazide diuretic we will want to monitor your potassium level, especially if you have a history of low potassium. - It is important to taper off of this medication when we finished with treatment, typically decreasing the dose 25 mg a week. Stopping Topiramate abruptly can cause irritability, anxiety and difficulty concentrating. Topiramate (toe pyre a mate) What are the common names? Topamax Why is this medication prescribed? Topiramate is an anti-epileptic medications which has been approved by the FDA for patients 10 years of age or older for treatment of seizures. However, topiramate also has other uses such as the treatment of migraines. It also causes decrease in appetite and weight loss. The mechanism of weight loss is thought to be through inhibition of mitochondrial enzymes involved in energy expenditure and metabolism. Topiramate may work by helping you feel less hungry, less driven to eat, more satisfied with less food. What special precautions should I follow? Before having topiramate prescribed, tell your doctor and pharmacist: If you have allergies to any component of topiramate If you are , plan to become , are breast-feeding, or if you become while taking topiramate What are the warnings and precautions for this medication? Immediately discontinue the medicine and seek medical help if you have severe cognitive/neuropsychiatric adverse symptoms or eye symptoms. Cognitive/neuropsychiatric adverse events: symptoms may include confusion, psychomotor slowing, difficulty with concentration/attention, difficulty with memory, speech or language problems, particularily word-finding difficulties, somnolence or fatigue Acute myopia and secondary angle closure glaucoma, usually within 1 month of starting treatment: symptoms may include blurred vision, redness and/or pain in the eye Oligohydrosis (decrease sweating) and hyperthermia (elevation in body temperature) Increase in suicidal behavior or ideation Metabolic acidosis, non-gap hyperchloremic (decreased serum bicarbonate below normal levels) resulting in hyperventilation or fatigue Kidney stones Paresthesias (numbness or tingling in hands or feet) Ataxia Dizziness Increase in urination frequency Drug interactions. Use of monamine oxidase inhibitors (MAOI s), valproic acid, Caution use with dehydration or diarrheal illness, hepatic or renal impairment In case of emergency/overdose In case of overdose, call your local poison control center at or call local emergency services at [phone]. What other information should I know? Keep all appointments with your doctor and the laboratory. Do not let anyone else take your medication. Topiramate use needs to be monitored closely. Prescriptions may be refilled only a limited number of times. Keep a written list of all of your prescription and nonprescription ([id number]) medicines, in addition to vitamins, minerals, or other dietary supplements. How should I monitor while on this medication? Your doctor will check your baseline kidney function and electrolytes prior to starting this medication, then periodically. Continue to improve your dietary and physical activity habits as the combination works best while on this medication. Start out by taking the medication at bedtime as it can cause fatigue and sleepiness. Be sure to eat regular meals. Less hunger does not make it appropriate to skip meals. Make sure to have an eye exam, including the pressure in your eyes (intra-ocular pressure), once a year. What should I do if I forget a dose? Skip the missed dose and continue your regular dosing schedule the next day. Do not take a double dose to make up for a missed one. Sources Pubmed Health: http://www.ncbi.nlm.nih.gov/pubmedhealth/YVO6022125/ Drugs.com http://www.drugs.com/pro/topiramate.html METFORMIN Dosing -- Begin Metformin 500 mg with dinner daily x 1 week. If you are experiencing any GI side effects, do not increase dose for 1-4 weeks. If tolerating, you can increase to 2 tablets with dinner daily. Taking the medication with food will help. -- if you experience any GI upset (Nausea, diarrhea, bloating, gas) you can go back to 1 tablet or hold the medication until it resolves. Once you are tolerating the medication you can try increasingit again. -- we can discuss increasing the dose further at your follow up visit. -- Metformin can interfere with the absorption of B12 in your food, please add a B12 1,000-2,400 mcg supplement and I suggest having it checked every 1-2 years Using Metformin for weight loss: Metformin helps to lower blood glucose levels by reducing the amount of glucose produced and released by the liver, and by increasing insulin sensitivity. It has now been proven to prevent or delay diabetes. Metformin and Type 2 Diabetes Prevention Diabetes Spectrum (diabetesjournals.org) Large cohort studies have shown weight loss benefits associated with metformin therapy. Emerging evidence suggests that metformin-associated weight loss is due to modulation of hypothalamic appetite-regulatory centers, alteration in the gut microbiome, and reversal of consequences of aging. Metformin is also being explored in the management of obesity s sequelae such as hepatic steatosis, obstructive sleep apnea and osteoarthritis. Effectiveness of metformin on weight loss in non-diabetic individuals with obesity - PubMed (nih.gov) Is metformin a wonder drug? - [facility] Common side effects of this medication include nausea, changes in bowel habits, abdominal discomfort, and flatulence. Taking the medication with food will help. Side effects also typically get betterwith time. Rarely, a severe side effect called lactic acidosis can occur. If you experience malaise, muscle aches, difficulty breathing, or severe abdominal pain, please seek immediate medical attention. Metformin: Patient drug information Warning Rarely, metformin may cause too much lactic acid in the blood (lactic acidosis). The risk is higherin people who have kidney problems, liver problems, heart failure, use alcohol, or take other drugslike topiramate. The risk is also higher in people who are 65 or older and in people who are havingsurgery, an exam or test with contrast, or other procedures. If lactic acidosis happens, it can lead to other health problems and can be deadly. Kidney tests may be done while taking this drug. Do not take this drug if you have a very bad infection, low oxygen, or a lot of fluid loss (dehydration). Call your doctor right away if you have signs of too much lactic acid in the blood (lactic acidosis) like fast breathing, fast or slow heartbeat, a heartbeat that does not feel normal, very bad upsetstomach or throwing up, feeling very sleepy, shortness of breath, feeling very tired or weak, very bad dizziness, feeling cold, or muscle pain or cramps. What is this drug used for? It is used to lower blood sugar in patients with high blood sugar (diabetes), treatment for PCOS, What do I need to tell my doctor BEFORE I take this drug? If you are allergic to this drug; any part of this drug; or any other drugs, foods, or substances. Tell your doctor about the allergy and what signs you had. If you have any of these health problems: Acidic blood problem, kidney disease, or liver disease. If you have had a recent heart attack or stroke. If you are not able to eat or drink like normal, including before certain procedures or surgery. If you are having an exam or test with contrast or have had one within the past 48 hours, talk withyour doctor. This is not a list of all drugs or health problems that interact with this drug. Tell your doctor and pharmacist about all of your drugs (prescription or OTC, natural products, vitamins) and health problems. You must check to make sure that it is safe for you to take this drug with all of your drugs and health problems. Do not start, stop, or change the dose of any drug withoutchecking with your doctor. What are some things I need to know or do while I take this drug? All products: Tell all of your health care providers that you take this drug. This includes your doctors, nurses,pharmacists, and dentists. Talk with your doctor before you drink alcohol. Do not drive if your blood sugar has been low. There is a greater chance of you having a crash. Check your blood sugar as you have been told by your doctor. Have blood work checked as you have been told by the doctor. Talk with the doctor. It may be harder to control blood sugar during times of stress such as fever, infection, injury, orsurgery. A change in physical activity, exercise, or diet may also affect blood sugar. Follow the diet and workout plan that your doctor told you about. If diarrhea happens or you are throwing up, call your doctor. You will need to drink more fluids tokeep from losing too much fluid. Be careful in hot weather or while being active. Drink lots of fluids to stop fluid loss. Long-term treatment with metformin may lead to low vitamin B-12 levels. If you have ever had low vitamin B-12 levels, talk with your doctor. If you are 65 or older, use this drug with care. You could have more side effects. There is a chance of in people of childbearing age who have not been ovulating. If you want to avoid , use control while taking this drug. Tell your doctor if you are , plan on getting , or are breast- feeding. You will need to talk about the benefits and risks to you and the baby. What are some side effects that I need to call my doctor about right away? WARNING/CAUTION: Even though it may be rare, some people may have very bad and sometimes deadly side effects when taking a drug. Tell your doctor or get medical help right away if you have any of thefollowing signs or symptoms that may be related to a very bad side effect: Signs of an allergic reaction, like rash; hives; itching; red, swollen, blistered, or peeling skin with or without fever; wheezing; tightness in the chest or throat; trouble breathing, swallowing, ortalking; unusual hoarseness; or swelling of the mouth, face, lips, tongue, or throat. It is common to have stomach problems like upset stomach, throwing up, or diarrhea when you start taking this drug. If you have stomach problems later during treatment, call your doctor right away. This may be a sign of an acid health problem in the blood (lactic acidosis). Low blood sugar can happen. The chance may be raised when this drug is used with other drugs for diabetes. Signs may be dizziness, headache, feeling sleepy or weak, shaking, fast heartbeat, confusion, hunger, or sweating. Call your doctor right away if you have any of these signs. Follow what you have been told to do for low blood sugar. This may include taking glucose tablets, liquid glucose, or some fruit juices. What are some other side effects of this drug? All drugs may cause side effects. However, many people have no side effects or only have minor sideeffects. Call your doctor or get medical help if any of these side effects or any other side effects bother you or do not go away: Stomach pain or heartburn. Gas. Diarrhea, upset stomach, or throwing up. Feeling tired or weak. Headache. These are not all of the side effects that may occur. If you have questions about side effects, call your doctor. Call your doctor for medical advice about side effects. You may report side effects to your national health agency. How is this drug best taken? Use this drug as ordered by your doctor. Read all information given to you. Follow all instructionsclosely. All products: Take with meals. Keep taking this drug as you have been told by your doctor or other health care provider, even if you feel well. PHENTERMINE -- Please take tablet or capsule as directed. May need to decrease dose or stop if uncontrolled BP or sustained elevated pulse. -- Please monitor your blood pressure (either purchase BP cuff, or go to pharmacy to check your BP at a local pharmacy). Please avoid any stimulants (in the form of caffeinated beverages like coffee,tea, sports drinks) and caution with decongestants. We will require an updated blood pressure and heart rate at follow up visits (this includes virtual visits). -- Please monitor for , if at any point you become please stop the medication. THIS IS A SUMMARY OF OUR DISCUSSION ABOUT THIS MEDICATION. PLEASE READ IT IS IMPORTANT FOR YOUR WEIGHT LOSS PLAN Per updated [place] state rules, initially, a one month supply of phentermine is prescribed. You will need to be seen every month for the first 3 months for follow-up and to assess effectiveness with a total 5% weight loss in that 3 month period. If the phentermine is effective for you, treatment with phentermine can continue with a one month supply of phentermine prescribed at a time with 2 refills. You, the patient, are responsible for making an appointment to see a provider within 12 weeks in order to get a refill of this medication. It is imperative that you get this (and future) phentermine prescriptions within 7 days as pharmacists will NOT refill prescriptions outside this 7 day window per State law. Phentermine can only be prescribed for a 3 month interval at a time. You are aware of the following statements per the [facility] pharmacy board rules. 1. Timely refills are required 2. Every 12 weeks office visits are required. 3. ALL prescriptions need to be filled within 7 days of the written prescription 4. Refills need to be done EVEN IF there is medication still available ? Phentermine (fen ter meen) What are the common names? Adipex-P, Ionamin Why is this medication prescribed? Phentermine was approved by the FDA in 1959 for short term weight loss. It works by decreasing appetite. Phentermine is absorbed by the body and travels to the appetite center of the brain. It works by helping you feel less hungry, less driven to eat, more satisfied with less food. I ve heard about fen-phen. Will phentermine affect my heart? The two drug combination fenfluramine/phentermine, usually called fen-phen, became popular in the early as a diet pill. However, it was withdrawn by the FDA in late 1996 after studies which showed that fenfluramine can cause fatal pulmonary hypertension and heart valve problems. Phentermine is not a combination medication and does not contain the compound fenfluramine. What special precautions should I follow? Before having phentermine prescribed, tell your doctor and pharmacist: If you have allergies to any component of phentermine If you are , plan to become , are breast-feeding, or if you become while taking phentermine What are the absolute contraindications? Stroke or Transient Ischemic Attacks Cardiac arrhythmias or Atrial fibrillation Coronary artery disease Seizure Disorder Uncontrolled blood pressure Angina Congestive Heart Failure Valvular Heart Disease or primary pulmonary hypertension Drug interactions. Use of monamine oxidase inhibitors (MAOI s) What are the side effects of phentermine? Immediately discontinue the medicine and seek medical help if you have severe symptoms such as chest pain, shortness of breath, feeling faint, ability to think clearly, eye pain or other visual symptoms: Palpitations (strong or rapid heartbeat) Difficulty sleeping or falling asleep Elevated blood pressure Dry mouth Anxiety or agitation Getting a stimulant/or hyper effect or jitteriness-(Usually goes away after a few days or weeks) Glaucoma In case of emergency/overdose In case of overdose, call your local poison control center at or call local emergency services at [phone]. What other information should I know? Keep all appointments with your doctor and the laboratory. Do not let anyone else take your medication. Phentermine is a controlled substance. It is FDA approved for up to 3 months. Prescriptions may be refilled only a limited number of times. Keep a written list of all of your prescription and nonprescription (kpqf-mzq-[id number]) medicines, in addition to vitamins, minerals, or other dietary supplements. If you are taking the extended-release (long-acting) tablets, do not split, chew, or crush them tablet. There are some tablets that can be crushed and mixed with food Alcohol can make the side effects of phentermine worse How should I monitor while on this medication? Please check your blood pressure (BP) and resting pulse weekly (twice a week in the first 2 weeks).If the BP is over 140/90 (either one), or if the resting pulse is over 96 per minute (count for 10 seconds and multiply by 6), then stop the medication and call your doctor. Continue to improve your dietary and physical activity habits as the combination works best while on this medication. Start out by taking the medication in the morning at least 30 minutes prior to meals. If the effectseems to wear off by dinner time, try taking it later in the morning, but taking too late may result in trouble falling asleep. Be sure to eat regular meals. Less hunger does not make it appropriate to skip meals. Monitor your caffeine intake and use of decongestants as they may worsen the effects of phentermine Make sure to have an eye exam, including the pressure in your eyes (intra-ocular pressure), once a year. What should I do if I forget a dose? Skip the missed dose and continue your regular dosing schedule the next day. Do not take a double dose to make up for a missed one. Sources [facility] Consumer Medication Info: http://www.ncbi.nlm.nih.gov/pubmedhealth/TXS8174884/ AMA patient handouts: http://www.amaassn.org/ama1/pub/upload/mm/433/phrxsurgery.pdf Drugs.com: http://www.drugs.com/pro/phentermine.html I use this combination frequently. Lactic acidosis with metformin is very rare and is typically seen only in patients with severe kidney disease. Metformin and Topiramate used together can potentially increase concentrations of both by up to 15% and you are on low doses of both. You would have to be careful with CT scans and IV contrast, hold metformin for 2 days. We can do blood work as we go tomonitor kidney function and your electrolytes every 3-6 months and with any dose increases. Persistent acidosis is a more likely concern and can result in bone thinning and kidney stones. Make sure you get adequate water intake and drink lemon water to avoid this. documented in this encounterBlanchard Valley [facility] System06-28-2024 Instructions* Patient Instructions* Robyn Warner APRN.[facility] - 11/23/2023 7:29 AM EDT How To Perform Pelvic Floor (Kegel) Exercises These exercises help to strengthen the pelvic floor muscles and can help improve bladder control for women. 1. You should have been instructed in the office how to contract these muscles. At home, you can insert two fingers in the vagina and feel the contraction of these muscles as you squeeze. We call these muscles the pelvic floor because they help support the pelvic organs, especially during coughing and sneezing. Squeezing the pelvic floor while standing feels like you are lifting the area around the vagina, and will interrupt the stream of urine while voiding. Once you are certain which muscles to use, do not exercise while urinating. Make sure you are not bearing down, squeezing your buttocks, or straining abdominally: these are not the muscles to be exercised. You may wish to place hands on your buttock muscles to keep these muscles relaxed while performing the exercises. 2. Squeeze these muscles as hard as you can for a slow count of five, eventually working up to a slow count of ten. Rest for 15 seconds, and then start another contraction. At first. these muscles may feel sore, just as other muscles may feel sore after exercise. 3. You should perform 50 squeezes every day: make sure every squeeze count by stephanie as hard as you can! Many women try to do these exercises in sets of five or ten at a time. Remind yourself todo these exercises by starting them every time you are waiting at a red light, watching a television commercial, or on hold on the telephone. If you are having trouble concentrating, you may want to set aside a special time to perform sets of pelvic floor exercises. 4. In addition to the long, hard contractions you are doing try doing some quick flicks of these muscles throughout the day. 5. You should be seen in the office after starting these exercises to make sure you are performing the contraction correctly: you may have never known how to contract these muscles before starting pelvic floor exercises, and many patients mistakenly exercise the wrong muscles. If you still feel frustrated about which muscles to use ask us for help. There are physical therapy specialists who work with pelvic floor muscles. 6. Work hard! As with any exercise program, improvement often is related to how faithfully you adhere to your exercise program. Pelvic floor exercises do not have the side effects and expense associated with other treatments for urinary incontinence, and have been known to help with severe stress incontinence. It may take several months to see the full effect of your exercise program: if you are easily discouraged, see your doctor or doctor at regular visits to assess what progress you are making. Techniques to avoid urinary accidents: Empty your bladder regularly and prior to physical activity. Avoid activity that causes leakage, if possible. Avoid or moderate the intake of alcohol and caffeine products. Try to restrict fluids prior to planned activities. Wear appropriate protection. Prevent chronic coughing which can cause a loss of urinary control. Ways to prevent chronic coughing include treating asthma, restricting smoking, and removing allergy-causing agents from your environment. documented in this encounterBlanchard Valley [facility] System06-28-2024 History of Present illness Narrative* Robyn Warner APRN.CNP - 11/23/2023 7:00 AM EDT Do is a 43 year old who presents for an annual gynecologic exam without complaints. Weight loss of 56 lbs in past 1.5 years with Mounjaro. Menses: 2017 hysterectomy, ovary sparing Contraception: hysterectomy HPV vaccine: No History of abnormal pap: Yes as a teenager Last mammogram: 01/27/2024 normal Abnormal mammogram: fibroadenoma right breast removed Sexually active: Yes History of STDS: HPV Patient concerns for STD exposure: No. 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 LMP: 02/25/2017, Hysterectomy Age at Menarche: Age at First : Age at Menopause: Town Manager History Comments: Sexual Activity: Yes; Male; hysterectomy Contraception: Surgical PAST MEDICAL HISTORY Diagnosis Date Anxiety 11/23/2023 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 09/15/2020 Added automatically from request for surgery [id number] Last Assessment & Plan: fib Gestational diabetes PVC (premature ventricular contraction) PAST SURGICAL HISTORY Procedure Laterality Date ESSURE EXT HYSTERECTOMY,W/PARTIAL VAGINECTO 2016 Ovaries bilaterally intact EXTRACTION, ERUPTED TOOTH OR EXPOSED ROOT (ELEVATION AND/OR FORCEPS REMOVAL) wisdom teeth IMPLANTS breast FAMILY HISTORY Problem Relation Age of Onset Hypertension Mother Hypertension Father Heart Father [place] Cancer Sister melanoma Heart Maternal Grandmother COPD Maternal Grandfather Diabetes No Family History none SOCIAL HISTORY Social History Tobacco Use Smoking status: Former Types: Cigarettes Smokeless tobacco: Never Tobacco comments: social smoker now, estimates 1 pack lasts her two weeks Vaping Use Vaping Use: Some days Substance Use Topics Alcohol use: Yes Comment: social Drug use: No REVIEW OF SYSTEMS Abdomen: No abdominal pain, nausea, vomiting, diarrhea, or constipation. No bloating, early satiety, indigestion, or increased flatulence. Bladder: No dysuria, gross hematuria, urinary frequency, urinary urgency. Stress incontinence has improved a little with weight loss. Breast: No breast lumps, nipple d/c, overlying skin changes, redness or skin retraction. Allergies and current medication updated:Yes EXAM: BP 112/62 Ht 5' 7 (1.70m) Wt 161 lb (73.0kg) LMP 02/25/2017 BMI 25.21 kg/(m^2). GENERAL: pleasant, female in no apparent distress HEENT: Normocephalic, atraumatic, mucus membranes moist, and no lesions NECK: Supple, full range of motion, no adenopathy, and thyroid normal DERMATOLOGY: Normal, without lesions, non-icteric, and non-hirsute BREAST: soft, non-tender, symmetric, no dominant mass, normal nipple-areolar complex, no lymphadenopathy, no nipple discharge, and surgical implants bilateral CHEST: Normal inspiratory effort ABDOMEN: soft, non-tender, and no masses PELVIC: external genitalia normal, normal Bartholin's glands, urethra, [place]'s glands, no vulvar lesions, physiologic discharge present, normal appearing perineal body and perianal region, cervix surgically absent BIMANUAL: no adnexal masses, non-tender, and uterus surgically absent RECTOVAGINAL: deferred. NEURO: alert and oriented x3,exam grossly non-focal EXTREMITIES: normal ASSESSMENT/PLAN: 1) Health maintenance: Pap no longer needed Mammogram up to date and ordered . Nutrition, exercise and routine health maintenance exams reviewed. 2. Stress incontinence - ICD9: [id number], ICD10: N39.3 - Discussed Kegel exercises and given written instruction. 3. History of obesity - ICD9: V12.29, ICD10: Z86.39 - Class 1 obesity with BMI 33.4 - 56 lb weight loss with Mounjaro prescribed by PCP, paying [id number]. Questions about maintenance medications that are less expensive 4) Contraception: hysterectomy. . 5) STD screening: Declined STD check. 6) Follow up one year or sooner as needed Robyn Warner APRN.[facility]MOL documented in this encounterBlanchard Valley Health System06-19-2024 Telephone encounter Note * Telephone Encounter - Carolyn Dumas APRN.CNP - 11/14/2023 9:34 AM EDT Refill sent. Recommend appointment if itching persists. Carolyn Dumas APRN.CNP [facility]06-[facility] Miscellaneous Notes* Telephone Encounter - Carolyn Dumas APRN.CNP - 11/14/2023 9:34 AM EDT Refill sent. Recommend appointment if itching persists. Carolyn Dumas APRN.CNP documented in this encounterBlanchard Valley Health System05-07-2024 Instructions* Patient Instructions* Robyn Warner APRN.CNP - 10/02/2023 11:49 AM EDT Silicone based lubricant Replens vaginal moisturizer and lubricant Coconut oil LIBIDO PATIENT EDUCATION Sex is good for you. Sex gasca fat and boosts your immune system. Sex causes the brain to release endorphins - the body s natural pain relievers. Sex relieves stress and makes you feel good. Sexually active people have higher levels of naturally produced sex hormones: the more sexually active you are, the more you will want to continue to be sexually active. In other words: Use it or lose it! If you stay sexually active throughout your life, the physical changes that come with aging may be less pronounced and sexuality is usually less affected. There is more to sex than penetration. There are many ways to be physically intimate, and they can all contribute to your sexual relationship if they are acceptable to both partners. Women without a partner can also be creative. Having sex takes up about as much energy as walking up two flights of stairs, so sex is rarely dangerous. But if you have any health-related concerns, consult your physician or other health-neurocritical care physician. Being sexually active contributes to physical and emotional health. But remember, sexually transmitted infections (STIs) know no age boundary; so if you are sexually active always practice safe sex. Sexual desire is complex. A woman's sexual desires naturally fluctuate over the years. Highs and lows commonly coincide with the beginning or end of a relationship or with major life changes, such aspregnancy, menopause or illness. And a feeling of decreased sexual drive is common among women, particularly as we age. Distressing decreased sexual desire affects between 5 and 13 percent of the female population between the ages of 30-70 years old. Sexual desire is influenced by the length of therelationship, the quality of the relationship, psychological factors, self-image, stress, medications and pain. There is help available, but because it is complex it requires active participation. This is a process, there is not a quick fix. Some of the influences are psychological. So much of sex and intimacy is about feeling special, so it s natural for the flame to flicker if partner no longer feels special or if sex becomes routine and loses the element of discovery and excitement. Regardless of your sexual problem or other menopause treatments you might be trying, the following strategies should increase the odds that your sex life (and overall relationship) remains healthy, exciting, and satisfying. Schedule regular date nights. These nights can be once a week or once a month, depending on your circumstances, but they should be strictly kept and honored. The focus should be mutual activity and intimacy, not necessarily just sex. If done right, however, the sex will often follow. Plan a mini-trip away from home. Like date nights, a planned trip with your partner will make intimacy a priority and ensure that you find time for sex without the distractions of work, home, and family. It can also give you the time for extended lovemaking that allows for plenty of touching, foreplay, and rediscovery of each other. Toy around. Introduce a new element to your lovemaking by picking something up from an adult boutique, such as a sex toy, erotic lingerie, a sexual enhancement cream, or a flavored lubricant. Just besure to pretest all topical products on a safe area of your body (like behind the ear) to rule out skin irritation. And be sure your partner is on board with the general idea of toys or erotica to avoid misunderstandings. Venture beyond the usual. Try new positions, different times of day, or different rooms in the house. Getting intimate in the kitchen or in a secluded spot in the mendes can charge you with a new sense of daring and excitement. Exploring alternatives to intercourse, such as oral sex or passionate necking while still clothed, may take you back to the thrilling encounters of the early days of your relationship. Plan an erotic surprise. The surprise might be making your partner s favorite dish for dinner or preparing a candlelit bath for two or greeting your partner at the door wearing nothing but a (use your imagination). The corrigan is to pick a surprise you know your partner will like to make him orher feel special in a way that focuses on romance and intimacy. Indulge your senses. Create an environment for you and your partner that engages all of your senses. You might try silk robes, seductive music, the smoky scent of fresh wood on the fire, the soft glow of tea lights, and the fruity zest of a glass of wine. This focus on sensation will help you be present in the moment and foster full arousal during lovemaking. Be romantic and playful. Slow dance. Read poetry to each other. Leave hidden love notes. Tickle each other. Cuddle and laugh. At its most basic, sex is a form of play and an expression of love. Be asmindful of these aspects of sex as when you first met. If you do, your desire, arousal, response, and satisfaction can t help but improve. Some of the influences are hormonal. When a women go through menopause, their estrogen drops. This commonly leads to vaginal dryness which can cause much pain on intercourse. It is difficult to have much desire for intercourse if it hurts. If lubricants and vaginal moisturizers do not solve the problem, hormonal remedies are available. There can be other causes of vaginal pain besides lack of lubrication but this is the most common cause of pain on intercourse. Some women also benefit from systemic hormone therapy, particularly if they are bothered by hot flashes and night sweats. Estrogen affects sexual performance through maintenance of genital tissues and elasticity. Medications such as Viagra are not FDA approved for use in women. Patients often believe that taking testosterone supplementation will fix everything. Typically, testosterone decreases as we age, in both men and women. There is not really an abrupt decrease at menopause. There is an abrupt decrease in testosterone if a patient's ovaries are removed during surgery. Testosterone levels can be checked with a blood test. Presently, there is not an FDA approved testosterone medication for women, though many physicians do use testosterone in an off label fashion, as these medications are approved for this use throughout [place] and [place]. Some of the influences are medical conditions and other medications. Depression as well as some of the medications to treat depression can drastically decrease sexual drive and orgasm. Other medical conditions, such as diabetes, high cholesterol, high blood pressure can influence this as well. Finally, some of the medications to treat these conditions, such as antihy pertensives and histamine blockers, can have an effect on desire. Often, an adjustment can be made in medication so that it has less of an effect. The following provide more information on specific topics: Becoming Orgasmic: A Sexual and Personal Growth Programme for Women Diana Davey, PhD, and Eulogio Smith, PhD ([place], 2009) Two sex therapists give guidance on evaluating your sexual history, exploring your body through touch, overcoming fear of orgasm, exploring ways to trigger orgasm, and more Reclaiming Desire: 4 Nogal to Finding Your Lost Libido Jovanny Vivar MD, and Cookie Marie, PhD ([employer], 2004) Practical advice for the woman who has lost her sex drive and wants to find it again. When Sex Isn t Good: Stories & Solutions of Women With Sexual Dysfunction April Nava EdD, and Debra Vivar (Yobani Vivar MD, director global medical affairs) ([employer], 2007) A profile of a variety of women s sexual health issues written so that readers can learn from the experiences of others Below are other useful resources. The first few list reputable websites that sell lubricants, dilators, and videos: www.Notifixious.[employer] www.Lumex Instruments www.Canonical.Elemental Technologies www.KibinprRedgage.Elemental Technologies www.[employer] www.VenueBook.[employer]al Technologies www.aasect.org [place] [employer] Sexuality Educators, Counselors, and Therapists Nonprofit professional association of sex educators, sex counselors, and sex therapists. You can search its website for a list of therapists in your area www.ALTHIAology.Elemental Technologies Also lists certified sexual therapists http://isswsh.org International Society for the Study of Women s Sexual Health Professional association website featuring an extensive directory of books on female sexual health, including many for lay readers. Also provides a searchable directory of sex therapists by geographic area. Www.SQFive Intelligent [employer] SolutionstitPalette.org The [facility] HospitalWebsite of this pioneering sexuality and research center at [facility] features collections of podcasts ( SlidePay and Conversations About Sex Research ), some of which address sex and menopause. And remember that your brain is your most powerful sexual organ. With the right attitude about yoursexuality and some responsible choices about your health, your body can give you pleasure for yearsand years. Take care of it and enjoy! Elvi perez documented in this encounterBlanchard Valley Health System05-07-2024 History of Present illness Narrative* Robyn Warner APRN.[facility] - 10/02/2023 11:31 AM EDT Do Olson is a 43 year old female who presents for problem visit review hormone levels HPI: Vaginal dryness, decreased sex drive, fatigue x 6 months. Denies any hot flashes or night sweats, Has been more irritable. Taking trazodone for sleep. Had ovary-sparing hysterectomy and wonders if symptoms are due to perimenopause. PCP ordered hormone levels - 09/26/2023 labs [facility] FSH, LH, estradiol - not postmenopausal. Slightly decreased testosterone: sex-binding hormone normal. 01/2023 normal TSH. Vit D and CBC. OB History T0 L2 SAB0 IAB0 Ectopic0 Multiple0 Live Births0 Town Manager History LMP: 02/25/2017, Hysterectomy Age at Menarche: Age at First : Age at Menopause: Town Manager History Comments: Sexual Activity: Yes; Male; hysterectomy Contraception: Surgical PAST MEDICAL HISTORY Diagnosis Date Gestational diabetes PVC (premature ventricular contraction) PAST SURGICAL HISTORY Procedure Laterality Date ESSURE EXT HYSTERECTOMY,W/PARTIAL VAGINECTO 2016 Ovaries bilaterally intact EXTRACTION, ERUPTED TOOTH OR EXPOSED ROOT (ELEVATION AND/OR FORCEPS REMOVAL) wisdom teeth IMPLANTS breast FAMILY HISTORY Problem Relation Age of Onset Hypertension Mother Hypertension Father Heart Father [place] Cancer Sister melanoma Heart Maternal Grandmother COPD Maternal Grandfather Diabetes No Family History none Social History Tobacco Use Smoking status: Former Types: Cigarettes Smokeless tobacco: Never Tobacco comments: social smoker now, estimates 1 pack lasts her two weeks Vaping Use Vaping Use: Some days Substance Use Topics Alcohol use: Yes Comment: social Drug use: No Current Outpatient Medications Medication Sig FLUoxetine (PROZAC) 20 mg capsule Take 20 mg by mouth once daily. Lactobacillus acidophilus (PROBIOTIC ORAL) Take by mouth. Vaginal health traZODone (DESYREL) 50 mg tablet Take 50 mg by mouth daily at bedtime. clotrimazole-betamethasone (LOTRISONE) cream Apply 1 application to affected area twice daily. cetirizine HCl (ZYRTEC ORAL) Take by mouth as needed. No current facility-administered medications for this visit. Allergies As of Date: 10/02/2023 (No Known Allergies) Fully Assessed 10/02/2023 REVIEW OF SYSTEMS Allergies and current medication updated:Yes EXAM: BP 100/64 Wt 165 lb 9.6 oz (75.1kg) LMP 02/25/2017 GENERAL: pleasant, female in no apparent distress CHEST: Normal inspiratory effort NEURO: alert and oriented x3,exam grossly non-focal ASSESSMENT/PLAN: 1. Vaginal dryness - ICD9: 625.8, ICD10: N89.8 (primary diagnosis) - Silicone based lubricant - Replens vaginal moisturizer and lubricant - Coconut oil 2. Low libido - ICD9: 799.81, ICD10: R68.82 - discussed multi-factorial causes of low libido. Given written information. Given information on supplements. 3. Malaise and fatigue - ICD9: 780.79, ICD10: R53.81, R53.83 - 01/2023 normal TSH. Vit D and CBC. - Discussed sleep hygiene. Robyn Warner APRN.[employer]EMAN I spent a total of 25 minutes on the date of the service which included preparing to see the patient, [id number] patient care, completing clinical documentation, obtaining and/or reviewing separately obtained history, performing a medically appropriate examination, counseling and educating the pat ient/family/caregiver, independently interpreting results (not separately reported), and communicating results to the patient/family/caregiver. documented in this encounterBlanchard Valley Health System08-15-2023 Miscellaneous Notes* Telephone Encounter - Meenu Plascencia LPN - 01/09/2023 7:33 AM EDT Order signed and faxed to [facility]. Meenu Plascencia LPN * Telephone Encounter - Liliam Wong RN - 01/08/2023 10:07 AM EDT [facility] radiology order on AG's desk to sign. documented in this encounterBlanchard Valley Health System12-07-2022 History of Present illness Narrative* Robyn Warner APRN.[facility]OL - 05/03/2022 7:22 AM EST Molecular Modeler offered: Patient declines. Do Olson is a 41 year old female who presents for intermittent burning and itching mostly at vaginal opening for about 5 weeks. Symptoms on and off for at least a year - she self-treated for yeast. Has a bottle of Diflucan from previous chronic condition nurse that she uses. States had hysterectomy for chronic yeast infection which helped for several years.. BV/trich and yeast negative 2 weeks ago. No concern for STD. Has changed to hypoallergenic products. Has not sat in hot tub.Used Monistat 7, Diflucan x 2. using cream for jock-itch currently. Vaginal discharge: none. Itching: YES Dyspareunia: N/A Fever/chills: No Abdominal pain: No Bladder: Negative for dysuria or frequency Bowel: No blood in stool, pain with BM, tarry stool, persistent diarrhea or constipation Any new sexual partners or concern for STD exposure: No Any history of STDs: HPV, no outbreak of genital warts for years Does your partner have any new complaints: Yes, has jock itch Are you currently taking any medications to treat vaginitis: No Do you use feminine sprays, douches or deodorants: No Menstrual cycle: hysterectomy Past medical, surgical, social history, medications and allergies reviewed and updated. OBJECTIVE: BP 118/72 Wt 203 lb (92.1kg) LMP 02/25/2017 GENERAL: Well developed, well nourished in no apparent distress ABDOMEN: soft, non-tender, and no masses PELVIC: external genitalia normal, normal Bartholin's glands, urethra, [place]'s glands, no vulvar lesions, small amount white discharge present, normal appearing perineal body and perianal region, cervix surgically absent ASSESSMENT/PLAN: 1. Vulvovaginal itching - ICD9: 698.1, ICD10: L29.2 - Continue vulvar hygiene . - FUNGAL SCREEN - CLOTRIMAZOLE-BETAMETHASONE 1 %-0.05 % TOPICAL CREAM - Women's health probiotic Discussed with patient that yeast in small amounts is normal vaginal deana and she may be changing that with frequent use of Diflucan for self treatment of vaginal itching. Encouraged to avoid use ofDiflucan at this time. If symptoms continue and fungal screen is negative, will consider trial of vaginal estrogen at introitus. Robyn Warner APRN.CNP Medical Decision Making: Problems: Moderate: 1+ chronic illnesses with change Data: Unique test(s) ordered: 1 Risk: Moderate: Drug management Medical Decision Making Level: 4 - Moderate documented in this encounterBlanch[facility]12-01-2022 Miscellaneous Notes* Telephone Encounter - Desi Chavez RN - 04/27/2022 11:43 AM EST Left message that rx was sent to pharmacy. Desi Chavez RN * Telephone Encounter - Robyn Warner APRN.CNP - 04/27/2022 11:09 AM EST Diflucan sent to pharmacy. If itching continues after 3 days, she will need to be evaluated in the office. BVC negative 04/18/2022. Robyn Warner APRN.ANMOL * Telephone Encounter - Meenu Plascencia LPN - 04/27/2022 8:43 AM EST Pt calling and stated that she finished monistat 7 on 04/24/22. She is now having vaginal burning, itching again. She denies any discharge. Pt is wanting to know if you would send in an rx for Diflucan? Please advise. Pt uses pharmacy listed. Call only if problems. Meenu Plascencia LPN documented in this encounterBlanchard Valley [facility] System11-22-2022 Instructions* Patient Instructions* Robyn Warner APRN.ANMOL - 04/18/2022 3:47 PM EST Minimizing irritation of the vulva (area around the vagina) Wear white cotton underwear. Avoid synthetic fabrics and tight clothing. Sleep wearing shorts or pajama bottoms without underwear. Shower as soon as possible after exercise. Avoid clothing detergents and soaps with perfumes or dyes. Use warm (not hot) water to wash the vulva and if you use soap use a product designed for sensitive skin (like Dove or Cetaphil).Use Dove unscented bar soap. Do not douche or use creams/powders in the vulvar area unless instructed by your physician. If you must douche, use only plain warm water. Make sure the vulva is dry before dressing by patting dry with a towel. Avoid vigorous rubbing withthe towel. You may want to use the blow dryer (on the cool setting only!) on the vulva. The most important way to let your body heal is by avoiding scratching. Many patients find it difficult to avoid scratching at night when they are most aware of the itchiness. You can try taking Benadryl just before bedtime. Some women find it helpful to wear cotton gloves to bed to avoid scratching at night. documented in this encounterBlanchard Valley [facility] System11-22-2022 History of Present illness Narrative* Robyn Warner APRN.AMNOL - 04/18/2022 3:26 PM EST Do Olson is a 41 year old female who presents for problem visit vaginal discharge for 3 week(s). HPI: Small amount intermittent milky vaginal discharge x 3 weeks. Itching. Treated with Diflucan x 2 doses with no improvement of symptoms. Last dose one week ago. No odor. Is sexually with one male partner of 26 years. Unprotected. History of HPV. History of hysterectomy 2016. Ovaries remain intact. Tide for laundry. Does use dryer sheets. Oil of Olay body wash. Vagisil feminine wash. Wears mostlyleggings. OB History T0 L2 SAB0 IAB0 Ectopic0 Multiple0 Live Births0 Town Manager History LMP: 02/25/2017, Having periods Age at Menarche: Age at First : Age at Menopause: Town Manager History Comments: Sexual Activity: Yes; Male; hysterectomy Contraception: Surgical PAST MEDICAL HISTORY Diagnosis Date Gestational diabetes PAST SURGICAL HISTORY Procedure Laterality Date ESSURE EXT HYSTERECTOMY,W/PARTIAL VAGINECTO 2016 Ovaries bilaterally intact EXTRACTION, ERUPTED TOOTH OR EXPOSED ROOT (ELEVATION AND/OR FORCEPS REMOVAL) wisdom teeth IMPLANTS breast FAMILY HISTORY Problem Relation Age of Onset Hypertension Mother Hypertension Father Heart Father [place] Cancer Sister melanoma Heart Maternal Grandmother COPD Maternal Grandfather Diabetes No Family History none Social History Tobacco Use Smoking status: Former Types: Cigarettes Smokeless tobacco: Never Tobacco comments: social smoker now, estimates 1 pack lasts her two weeks Vaping Use Vaping Use: Some days Substance Use Topics Alcohol use: Yes Comment: social Drug use: No Current Outpatient Medications Medication Sig cetirizine HCl (ZYRTEC ORAL) Take by mouth. buPROPion XL (WELLBUTRIN XL) 150 mg 24 hr tablet Take 150 mg by mouth once daily. (Patient not taking: Reported on 04/18/2022) predniSONE (DELTASONE) 10 mg tablet Take 4 tabs po every day x 3 days, then 3 tabs po every day x 3days, then 2 tabs po every day x 3 days, then 1 tab po every day x 3 days (Patient not taking: No sig reported) No current facility-administered medications for this visit. Allergies As of Date: 04/18/2022 (No Known Allergies) Fully Assessed 04/18/2022 REVIEW OF SYSTEMS Abdomen: No bloating, early satiety, indigestion, or increased flatulence. No abdominal pain, nausea, vomiting, diarrhea, or constipation. Bladder: No dysuria, gross hematuria, urinary frequency, urinary urgency, or incontinence. Allergies and current medication updated:Yes EXAM: BP 128/70 Ht 5' 7 (1.70m) Wt 201 lb 12.8 oz (91.5kg) LMP 02/25/2017 BMI 31.60 kg/(m^2). GENERAL: pleasant, female in no apparent distress CHEST: Normal inspiratory effort ABDOMEN: soft, non-tender, and no masses PELVIC: external genitalia normal, normal Bartholin's glands, urethra, [place]'s glands, no vulvar lesions, small amount white discharge present, normal appearing perineal body and perianal region, cervix surgically absent BIMANUAL: no adnexal masses, non-tender, and uterus surgically absent NEURO: alert and oriented x3,exam grossly non-focal ASSESSMENT/PLAN: 1. Vaginal discharge - ICD9: 623.5, ICD10: N89.8 (primary diagnosis) - EILEEN / TRICHOMONAS AMPLIFICATION - BACTERIAL VAGINOSIS AMPLIFICATION - Vulvar hygiene instructions 2. Vagina itching - ICD9: 698.1, ICD10: N89.8 - EILEEN / TRICHOMONAS AMPLIFICATION - BACTERIAL VAGINOSIS AMPLIFICATION Will notify of results. Follow- up as needed. Robyn Warner APRN.CLASS A LINEMAN Medical Decision Making: Problems: Low: Acute, uncomplicated illness or injury Data: Unique test(s) ordered: 2 Medical Decision Making Level: 3 - Low documented in this encounterBlanchard Valley Health System05-28-2021 History of Present illness Narrative* Shahla Castañeda MD - 10/22/2020 8:30 AM EDT POSTOPERATIVE VISIT 10/22/2020 Do Olson 1980 DOS (operation): 10/05/2020 FACILITY: [facility] PROCEDURE: Right breast open excisional biopsy BRIEF ONCOLOGIC/BREAST HISTORY: She underwent baseline screening mammogram on 08/13/2020 at the [facility] which was given a BIRADS 0 for an asymmetry in the upper right breast, posterior depth. She underwent diagnostic bilateral mammogram and targeted right breast ultrasound on 08/19/[address] [facility] radiology which was given a BIRADS III for her mammographic asymmetry which was located atthe 2 o'clock position. There was no ultrasound correlate identified. She underwent further evaluation with bilateral breast MRI at [place] 08/24/2020 which identified a 2 x 1.1 x 1.2 cm mass at the2 o'clock position, 7 cm from the nipple and was given a BI-RADS 4A. Second look ultrasound at our [facility] revealed a 1.8 x 0.8 x 1.4 cm oval circumscribed mass at the 2:00 zone B/C position. Ultrasound-guided core needle biopsy was performed 08/27/2020. Biopsy pathology demonstrated a fibroepithelial lesion. She was treated with right breast open excisional biopsy 10/05/2020 at [facility].Surgical pathology demonstrated a fibroadenoma. At her request, a right areolar skin tag was also removed which was benign. HISTORY: Past Medical History: Diagnosis Date Abnormal mammogram Anxiety Breast pain Gestational diabetes 2012 Right shoulder pain 06/10/2015 Past Surgical History: Procedure Laterality Date BREAST BIOPSY Right 08/27/2020 BREAST MASS EXCISION Right 10/05/2020 Procedure: Right breast open excisional biopsy with intraoperative ultrasound- guided localization,;Surgeon: Shahla Castañeda MD; Location: [facility] Main OR; Service: General Surgery COSMETIC SURGERY HYSTERECTOMY 04/2017 ID ENLARGE BREAST US BREAST BIOPSY RIGHT Right 08/27/2020 US BREAST BIOPSY RIGHT 08/27/2020 Carolin Ramirez MD BREAST ULTRASOUND SALIMA WISDOM TOOTH EXTRACTION Family History Problem Relation Age of Onset Melanoma Sister 43 Brain cancer Sister 43 Hypertension Mother Hypertension Father Other (heart problems) Father Cervical cancer Maternal Aunt Anesthesia problems Neg Hx Social History Occupational History Not on file Tobacco Use Smoking status: Former Smoker Packs/day: 0.50 Years: 20.00 Pack years: 10.00 Types: Cigarettes Start date: 05/28/1999 Quit date: 07/26/2020 Years since quittin.2 Smokeless tobacco: Never Used Vaping Use Vaping Use: Never used Substance and Sexual Activity Alcohol use: Not Currently Drug use: No Sexual activity: Yes Partners: Male control/protection: Surgical SUBJECTIVE: Overall, she has done well post-operatively. However, over the past 3 days, she notes increased sensitivity of the nipple areolar complex. EXAM: Right breast superomedial circumareolar incision c/d/i, healing appropriately without sign ofinfection. Exofin glue removed today. A targeted ultrasound of the right breast performed in the office today revealed a very small seroma at the site of her fibroadenoma excision. PATHOLOGY REPORT: Final Diagnosis Date Value Ref Range Status 10/05/2020 Final A. Skin, right areolar skin tag, excision: Skin tag. B. Right breast, excisional biopsy: Fibroadenoma. Biopsy site identified. See comment. EWW A/P: 40 y.o. female with a right breast fibroepithelial lesion s/p open excisional biopsy, found tohave a fibroadenoma on final surgical pathology. She is doing well postoperatively. 1. 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 The pathology report was reviewed in detail with the patient today in the office. She was provided with a copy of the report for her records. 2. We reviewed that her surgical pathology was benign. 3. She may return to her normal activities, keeping a supportive bra on while being more active initially. 4. I recommended gentle massage to the NAC to help desensitize the nerves. 5. She will be due for bilateral diagnostic mammogram July 2021. 6. I will see the patient back in the office in 6 months for follow-up and clinical exam. 7. All of the patient's questions were answered in the office today. She leaves in stable conditionand in agreement with the above plan. She has been instructed to call the office should she have any new issues or concerns. It is always a privilege to take care of your patients. Please do not hesitate to call me with any questions. Shahla Castañeda MD Breast Surgical Oncology [facility] Office Office CC: CARE TEAM Patient Care Team: Ana Maria Baker MD as PCP - General (Internal Medicine) Robyn Bergeron RN as Patient Navigator documented in this [id number] Miscellaneous Notes* Assessment & Plan Note - Ana Maria Baker MD - 09/21/2020 8:29 AM EDT Associated Problem(s): 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 fib * Assessment & Plan Note - Ana Maria Baker MD - 09/21/2020 8:28 AM EDT Associated Problem(s): Physical exam We will get Cbc and cmp today No acute complaints today documented in this [id number] History of Present illness Narrative* Ana Maria Baker MD - 09/21/2020 8:24 AM EDT Subjective Patient ID: Do Olson is a 40 y.o. female. Chief Complaint Patient presents with preoperative clearance HPI Patient is a very pleasant 40-year-old premenopausal female presenting for a preoperative clearancefor excision of right breast mass in her inner quadrant of right breast. Patient had her initial mammogram on 08/13/2020 BI-RADS of 0 which showed a breast mass and requireddiagnostic imaging. Diagnostic mammogram was completed 325 and showed breast mass at 2 o'clock position and was BI-RADS 3 category. She also completed an ultrasound at that time which did not show any discernible mass and due to this inconsistency patient required a breast MRI. Breast MRI was completed on 08/24/2020 and showed a mass at the 2 o'clock position 3 x 1.1 x 1.2 BI-RADS 4 a. Patient wasthen referred to breast clinic in [place] where Dr. Castañeda performed biopsy on 08/27/2020. Pathologyshowed fibroepithelial lesion versus fibroadenoma versus phyllodes tumor. Due to the possibility ofa ephelides tumor, it was recommended that the mass be excised. Patient is currently told for surgery on 10/05/2020. Today patient denies any acute complaints. She does state that ever since her diagnosis she does have some vague right breast tenderness. She denies any skin changes or nipple discharge. Patient was previously a current every day smoker however she quit successfully 2 months ago. She denies any shortness of breath, wheezing, cough. All pertinent positives and negatives are documented in ROS Patient's medications, allergies, past medical history, surgical history history, family history, social history were reviewed. Spent more than 20 minutes with patient, coordinating patient care, including reviewing charts and counseling patient. Patient Active Problem List Diagnosis Pain in right shoulder Wellness examination Vaginal eileen Lateral epicondylitis Obesity (BMI 30-39.9) Pain in left shoulder 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 Preoperative clearance Past Surgical History: Procedure Laterality Date BREAST BIOPSY Right 08/27/2020 COSMETIC SURGERY HYSTERECTOMY 04/2017 ID ENLARGE BREAST US BREAST BIOPSY RIGHT Right 08/27/2020 US BREAST BIOPSY RIGHT 08/27/2020 Carolin Ramirez MD BREAST ULTRASOUND SALIMA WISDOM TOOTH EXTRACTION Family History Problem Relation Age of Onset Melanoma Sister 43 Brain cancer Sister 43 Hypertension Mother Hypertension Father Other (heart problems) Father Cervical cancer Maternal Aunt Social History Tobacco Use Smoking status: Former Smoker Packs/day: 0.50 Years: 20.00 Pack years: 10.00 Types: Cigarettes Start date: 05/28/1999 Quit date: 07/12/2020 Years since quittin.1 Smokeless tobacco: Never Used Substance Use Topics Alcohol use: Yes Comment: SOCIAL Drug use: No No Known Allergies Outpatient Medications as of 09/21/2020 Medication Sig buPROPion (Wellbutrin XL) 150 MG 24 hr tablet Take 1 (one) tablet (150 mg total) by mouth daily . cetirizine (ZYRTEC) 10 MG tablet fluconazole (DIFLUCAN) 150 MG tablet TAKE 1 TABLET BY MOUTH for 1 dose, repeat in 3 days if symptoms persist. [DISCONTINUED] ALPRAZolam (XANAX) 0.25 MG tablet Take 1 (one) tablet (0.25 mg total) by mouth 3 (three) times a day as needed for anxiety (Days supply per fill: 3) . Review of Systems Constitutional: Negative for appetite change, chills, fatigue and fever. Respiratory: Negative for cough, shortness of breath and wheezing. Cardiovascular: Negative for chest pain and palpitations. Gastrointestinal: Negative for abdominal pain, blood in stool, constipation and diarrhea. Genitourinary: Negative for dysuria, frequency, hematuria and urgency. Musculoskeletal: Negative for back pain. Skin: Negative for rash. biopsy site healed +breast pain, vague Neurological: Negative for dizziness, weakness, numbness and headaches. Objective Vitals: 09/21/20 0732 BP: 130/76 BP Location: Left arm Patient Position: Sitting BP Cuff Size: Adult Pulse: 65 Resp: 16 Temp: 97.8 F (36.6 C) TempSrc: Oral SpO2: 97% Weight: 85.3 kg (188 lb) Height: 5' 7 Estimated body mass index is 29.44 kg/m as calculated from the following: Height as of this encounter: 5' 7. Weight as of this encounter: 85.3 kg (188 lb). Physical Exam Vitals signs and nursing note reviewed. Constitutional: Appearance: Normal appearance. HENT: Head: Normocephalic and atraumatic. Mouth/Throat: Mouth: Mucous membranes are moist. Eyes: Extraocular Movements: Extraocular movements intact. Neck: Musculoskeletal: Normal range of motion. Cardiovascular: Rate and Rhythm: Normal rate and regular rhythm. Pulmonary: Effort: Pulmonary effort is normal. Breath sounds: Normal breath sounds. Chest: Breasts: Right: No skin change. Left: Tenderness present. No skin change. Abdominal: General: Abdomen is flat. There is no distension. Palpations: Abdomen is soft. Musculoskeletal: Normal range of motion. Lymphadenopathy: Upper Body: Right upper body: No supraclavicular, axillary or pectoral adenopathy. Left upper body: No supraclavicular, axillary or pectoral adenopathy. Skin: General: Skin is warm. Neurological: General: No focal deficit present. Mental Status: She is alert and oriented to person, place, and time. Mental status is at baseline. Psychiatric: Mood and Affect: Mood normal. Behavior: Behavior normal. Thought Content: Thought content normal. Judgment: Judgment normal. Assessment/Plan: Problem List Items Addressed This Visit Other 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 fib Preoperative clearance - Primary We will get Cbc and cmp today H+P completed No acute complaints today Relevant Orders CBC and Differential Comprehensive Metabolic Panel Return if symptoms worsen or fail to improve. For any new medications prescribed today, patient was educated about indications for the medication, how to take the medication and potential side effects of the medications. Ana Maria Baker MD documented in this [id number] History of Present illness Narrative* Shahla Castañeda MD - 09/15/2020 8:00 AM EDT Date of Service: 09/15/20 Patient Name: Do Olson MR #: [id number] : 1980 Physicians: Ana Maria Baker MD (Family); No ref. provider found Chief Complaint/Reason for Visit: Follow-up right breast fibroepithelial lesion HPI: Do Olson is a 40 y.o. premenopausal female who presents today for follow-up of her right breast fibroepithelial lesion. 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 Overall, she has done well following her breast biopsy and denies new breast related complaints. She does endorse some discomfort at her biopsy site. BRIEF ONCOLOGIC/BREAST HISTORY: She underwent baseline screening mammogram on 08/13/2020 at the [facility] which was given a BIRADS 0 for an asymmetry in the upper right breast, posterior depth. She underwent diagnostic bilateral mammogram and targeted right breast ultrasound on 08/19/[address] [facility] radiology which was given a BIRADS III for her mammographic asymmetry which was located atthe 2 o'clock position. There was no ultrasound correlate identified. She underwent further evaluation with bilateral breast MRI at [place] 08/24/2020 which identified a 2 x 1.1 x 1.2 cm mass at the2 o'clock position, 7 cm from the nipple and was given a BI-RADS 4A. [facility] revealed a 1.8 x 0.8 x 1.4 cm oval circumscribed mass at the 2:00 zone B/C position. Ultrasound-guided core needle biopsy was performed 08/27/2020. Biopsy pathology demonstrated a fibroepithelial lesion. 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 Age of menopause: N/A Breast Cancer Risk Assessment by Lucia Model: 5-year risk: 0.6 % Lifetime risk: 9.0 % PMH: Past Medical History: Diagnosis Date Abnormal mammogram Breast pain Gestational diabetes 2012 Right shoulder pain 06/10/2015 PSH: Past Surgical History: Procedure Laterality Date COSMETIC SURGERY HYSTERECTOMY 04/2017 ID ENLARGE BREAST US BREAST BIOPSY RIGHT Right 08/27/2020 US BREAST BIOPSY RIGHT 08/27/2020 Carolin Ramirez MD BREAST ULTRASOUND SALIMA WISDOM TOOTH EXTRACTION FMH: Family History Problem Relation Age of Onset Melanoma Sister 43 Brain cancer Sister 43 Hypertension Mother Hypertension Father Other (heart problems) Father Cervical cancer Maternal Aunt Cancer-related family history includes Brain cancer (age of onset: 43) in her sister; Cervical cancer in her maternal aunt; Melanoma (age of onset: 43) in her sister. SOCIAL Hx: Social History Occupational History Not on file Tobacco Use Smoking status: Current Some Day Smoker Types: Cigarettes Start date: 2019 Smokeless tobacco: Never Used Tobacco comment: SOCIAL ONLY WHEN HAVING DRINKS Substance and Sexual Activity Alcohol use: Yes Comment: SOCIAL Drug use: No Sexual activity: Yes Partners: Male control/protection: Surgical OB Hx: OB History 2 Para 2 Term AB Living 2 SAB TAB Ectopic Multiple Live Births Obstetric Comments Age first live 19 MEDS: Current Outpatient Medications Medication Sig Dispense Refill ALPRAZolam (XANAX) 0.25 MG tablet Take 1 (one) tablet (0.25 mg total) by mouth 3 (three) times a day as needed for anxiety (Days supply per fill: 3) . 42 tablet 0 buPROPion (Wellbutrin XL) 150 MG 24 hr tablet Take 1 (one) tablet (150 mg total) by mouth daily . 90 tablet 3 cetirizine (ZYRTEC) 10 MG tablet fluconazole (DIFLUCAN) 150 MG tablet TAKE 1 TABLET BY MOUTH for 1 dose, repeat in 3 days if symptoms persist. No current facility-administered medications for this visit. ALLERGIES: Allergies: Patient has no known allergies. ROS from office visit 08/26/2020: Review of Systems Constitutional: Positive for activity change and appetite change. Negative for chills, diaphoresis,fatigue, fever and unexpected weight change. HENT: Positive for rhinorrhea. Negative for congestion, dental problem, drooling, ear discharge, ear pain, facial swelling, hearing loss, mouth sores, nosebleeds, postnasal drip, sinus pressure, sneezing, sore throat, tinnitus, trouble swallowing and voice change. Eyes: Negative for photophobia, pain, discharge, redness, itching and visual disturbance. Respiratory: Positive for chest tightness. Negative for apnea, cough, choking, shortness of breath,wheezing and stridor. Cardiovascular: Negative for chest pain, palpitations and leg swelling. Gastrointestinal: Negative for abdominal distention, abdominal pain, anal bleeding, blood in stool,constipation, diarrhea, nausea, rectal pain and vomiting. Endocrine: Negative for cold intolerance, heat intolerance, polydipsia, polyphagia and polyuria. Genitourinary: Negative for decreased urine volume, difficulty urinating, dyspareunia, dysuria, enuresis, flank pain, frequency, genital sores, hematuria, menstrual problem, pelvic pain, urgency, vaginal bleeding, vaginal discharge and vaginal pain. Musculoskeletal: Negative for arthralgias, back pain, gait problem, joint swelling, myalgias, neck pain and neck stiffness. Skin: Negative for color change, pallor, rash and wound. Allergic/Immunologic: Negative for environmental allergies, food allergies and immunocompromised state. Neurological: Negative for dizziness, tremors, seizures, syncope, facial asymmetry, speech difficulty, weakness, light-headedness, numbness and headaches. Hematological: Negative for adenopathy. Does not bruise/bleed easily. Psychiatric/Behavioral: Negative for agitation, behavioral problems, confusion, decreased concentration, dysphoric mood, hallucinations, self-injury, sleep disturbance and suicidal ideas. The patientis nervous/anxious. The patient is not hyperactive. Sexual Health: Negative for decreased sexual drive, negative for difficulty reaching orgasm. Breast: breast mass-no, nipple discharge-no, breast pain-yes, skin changes-no, nipple inversion-no Physical Examination: Vital Signs: LMP 05/14/2017 Physical Exam RIGHT BREAST: There is an accessory nipple on the inferior pole. I am unable to palpate the mass identified on recent breast imaging. No palpable masses, no thickening or dimpling of the skin, no nipple discharge or retraction, no edema or induration, no erythema. No axillary lymphadenopathy. Grade1 ptosis. ULTRASOUND FINDINGS: Targeted ultrasound of the right breast performed today in the office. At the 2 o'clock position, 7 cm from the nipple, 1 cm in depth is a 1.9 x 1 x 1.5 cm lobulated hypoechoic mass with an easily visible HydroMARK biopsy clip along its inferior border. Full physical exam deferred today. Previously, at her office visit on 08/26/2020: Bilaterally, there are well-healed inframammary fold incisions from prior augmentation. Implants soft. LEFT BREAST: No palpable masses, no thickening or dimpling of the skin, no nipple discharge or retraction, no edema or induration, no erythema. No axillary lymphadenopathy. Grade 1 ptosis. LYMPHATIC: No cervical or supraclavicular lymphadenopathy. GENERAL: Well developed, well nourished, alert and cooperative, appears to be in no acute distress. HEAD: Normocephalic, atraumatic. EYES: Conjunctivae clear, EOMI, no scleral icterus, pupils equal. EARS: No discharge, hearing grossly intact. NOSE/THROAT: Wearing mask. NECK: Neck supple, no cervical masses, trachea midline, no cervical lymphadenopathy. CARDIAC: Hemodynamically stable. LUNGS: Respirations unlabored. ABDOMEN: Soft, non-tender, non-distended. MUSCULOSKELETAL: No muscle wasting. Strength/tone grossly normal. EXTREMITIES: Warm, moves all, no edema. NEUROLOGICAL: No focal deficits, normal speech. SKIN: No rash, petechiae, or ecchymosis of examined areas. PSYCHIATRIC: Affect appropriate. IMAGING: I have independently reviewed the most recent breast imaging which includes bilateral diagnostic mammogram and targeted right breast ultrasound from 08/19/2020, bilateral breast MRI from 08/24/2020 BI-RADS 4A. She has heterogeneously dense tissue on mammogram. I have additionally reviewed her targeted right breast ultrasound, ultrasound- guided core needle biopsy, and postprocedure mammogram from 08/27/2020. Her fibroepithelial lesion is located at the 2:00 zone B/C position and measures 1.8 x 0.8 x 1.4 cm. It is now marked with a HydroMARK biopsy clip. ASSESSMENT: 40 y.o. female with a right breast fibroepithelial lesion at the 2:00 zone B/C position measuring 1.8 x 0.8 x 1.4 cm by ultrasound, now marked with a HydroMARK biopsy clip. 1. 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 Plan for right breast open excisional biopsy with intraoperative ultrasound- guided localization.We discussed using a circumareolar incision for her excisional biopsy and removing her areolar skintag at the time of her operation. 2. We reviewed the pathology in detail. We discussed how fibroepithelial lesion is an umbrella term for a heterogeneous group of tumors encompassing the benign fibroadenoma and the phyllodes tumor.We discussed that, due to lesional heterogeneity, the distinction between cellular fibroadenoma andbenign phyllodes tumor is often difficult for the pathologist to make on core needle biopsy alone, resulting in the recommendation for surgical excision. 3. We discussed that most phyllodes tumors are benign and that their treatment is surgical excisionto negative margins. We will attempt excision with attention to margins in the form of a partial mastectomy. However, because fibroadenoma is still a possibility, we do not want to remove a large margin that may create a cosmetic defect. Therefore, if a phyllodes tumor were to be identified on final pathology and there was not an adequate margin, a return to the operating room for further surgerycould be required. 4. We discussed the planned operation as well as the anticipated postoperative course. We reviewed the small chance of need for margin re-excision should the final pathology demonstrate this mass to be a borderline or malignant phyllodes tumor. 5. We discussed the risks of surgery including bleeding/hematoma formation, infection, damage to surrounding structures, seroma formation, pain, poor cosmetic result, scarring, anesthetic complications and need for further surgery or procedures. 6. We discussed [facility]'s preoperative COVID-19 testing policy. She understands that while we take appropriate precautions consistent with prevailing medical standards, any contact with any personin any setting at this time presents a risk of transmission and contraction of COVID-19. 7. All of the patient's questions were answered in the office today. She leaves in stable conditionand in agreement with the above plan. She has been instructed to call the office should she have any new issues or concerns. I personally spent 30-39 minutes on this encounter today which includes [id number] time with the patient, time reviewing the chart, and time spent documenting the encounter. It is always a privilege to take care of your patients. Please do not hesitate to call me with any questions. hSahla Castañeda MD Breast Surgical Oncology [facility] Office Office CC: Patient Care Team: Ana Maria Baker MD as PCP - General (Internal Medicine) Robyn Bergeron RN as Patient Navigator documented in this [id number] History of Present illness Narrative* Cayla Hernandez, [employer] - 08/10/2020 7:00 AM EDT [facility] OUTPATIENT REH[facility] DAILY TREATMENT NOTE Today's Date 08/10/2020 Patient Name: Do Olson Date of : 1980 Current Visit #: 3 Authorized Visits: 50 Case Name: Left Elbow and Shoulder Pain History: Pre-Treatment Pain Scale: 2 Symptoms: gradually improved Functional Diagnosis: 1. Lateral epicondylitis, unspecified laterality 2. Acute pain of left shoulder Clinical Information: Subjective: the injection is working and she has less pain. She is compliant with HEP. Objective Tenderness to palpate along lateral epicondyle Treatments: Physical Therapy Exercise Log - 08/10/20 0746 OTHER Notes visit 3: 7:10-7:40 Therapeutic Exercise (87761) Parameters ER doorway stretch 3x20 Intervention cane assisted ER in scaption and abd 10x10 Parameters rows/ext GTT 2x10 Intervention prone rows, ext and horz abd 2# x10 each Parameters side lying ER 2# x10 Intervention serratus punches 2# x10 Parameters finger/wrist flex and ext stretches 3x20 Intervention resisted pronation/supination 2# dumbbell x10 Parameters resisted ulnar/radial deviation and wrist flexion GTT x10 Intervention biceps curls GTT x10 Manual Therapy (29841) Intervention radial head mobs x5 mins Parameters humeroradial traction in 70 deg. flexion and in 20 deg. flexion 3x20 PT Treatment Times Therex Total Time 30 Direct Treatment Time 30 Total Treatment Time 30 Goals: Physical Therapy Ortho Goals: CARRYING/MOVING/HANDLING: Patient will be able to lift and carry without restriction in 4 weeks SELF CARE: Patient will be able to complete ADL's, housekeeping and desired leisure activities without difficulty in 4 weeks. IMPAIRMENT: Patient will demonstrate improved postural awareness in PT sessions to facilitate mechanical alignment and function in 2 weeks. IMPAIRMENT: Improve pain from 8/10 to <4/10 during reaching away from the body and repetitious activities in 4 weeks IMPAIRMENT: Improve AROM of Left Shoulder Abduction from 106 degrees to at least 160 degrees in 4 weeks. OTHER: Patient will increase FOTO score from 58/59 to at least 70 to show MDC/MCII and expected functional outcome in 4 weeks. OTHER: Patient will be able to properly demonstrate independence with HEP in 1 week. Patient Education: Quality of movement with patient demonstrated understanding. Post-Treatment Pain Scale: 2 Assessment: Patient had an expected response to treatment. Skilled Intervention demonstrated by modifications of treatment per exercise log including increased mobility and safety interventions per exercise log. Progress towards goals as expected. Plan for Next Visit: Treatment Visit with focus on pain control Cayla Hernandez PTA STATE LICENSE, [id number] documented in this [id number] History of Past illness Narrative* Problem Noted Date Resolved Date Pain in right shoulder 06/10/2015 9 Overview: Been having it for the past 3 months. When she lifts her shoulder above 90 is starts to hurt her. She is active in the gym. At least 3 days a week does the elliptical or treadmill, greek twist etc. Did not lift anything and not injury. But is not very sure about the that. Last Assessment & Plan: Been having it for the past 3 months. When she lifts her shoulder above 90 is starts to hurt her. She is active in the gym. At least 3 days a week does the elliptical or treadmill, greek twist etc. Did not lift anything and not injury. But is not very sure about the that. documented as of this encounter (statuses as of 04/18/2022) [facility]01-14-2016 History of Past illness Narrative* Problem Noted Date Resolved Date Pain in right shoulder 06/10/2015 9 Overview: Been having it for the past 3 months. When she lifts her shoulder above 90 is starts to hurt her. She is active in the gym. At least 3 days a week does the elliptical or treadmill, greek twist etc. Did not lift anything and not injury. But is not very sure about the that. Last Assessment & Plan: Been having it for the past 3 months. When she lifts her shoulder above 90 is starts to hurt her. She is active in the gym. At least 3 days a week does the elliptical or treadmill, greek twist etc. Did not lift anything and not injury. But is not very sure about the that. documented as of this encounter (statuses as of 04/27/2022) [facility] History of Past illness Narrative* Problem Noted Date Resolved Date Pain in right shoulder 06/10/2015 9 Overview: Been having it for the past 3 months. When she lifts her shoulder above 90 is starts to hurt her. She is active in the gym. At least 3 days a week does the elliptical or treadmill, greek twist etc. Did not lift anything and not injury. But is not very sure about the that. Last Assessment & Plan: Been having it for the past 3 months. When she lifts her shoulder above 90 is starts to hurt her. She is active in the gym. At least 3 days a week does the elliptical or treadmill, greek twist etc. Did not lift anything and not injury. But is not very sure about the that. documented as of this encounter (statuses as of 05/03/2022) [facility] History of Past illness Narrative* Problem Noted Date Diagnosed Date Resolved Date Pain in right shoulder 06/10/201509/18 Overview: Been having it for the past 3 months. When she lifts her shoulder above 90 is starts to hurt her. She is active in the gym. At least 3 days a week does the elliptical or treadmill, greek twist etc. Did not lift anything and not injury. But is not very sure about the that. Last Assessment & Plan: Been having it for the past 3 months. When she lifts her shoulder above 90 is starts to hurt her. She is active in the gym. At least 3 days a week does the elliptical or treadmill, greek twist etc. Did not lift anything and not injury. But is not very sure about the that. 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 [facility] Diagnosis Lateral epicondylitis, unspecified laterality- Primary Acute pain of left shoulder 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- Primary 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 [facility] Diagnosis 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- Primary [facility]* Diagnosis Situational anxiety- Primary [facility]* Diagnosis Vaginal itching- Primary Pruritus of genital organs [facility] Occupational exposure to COVID-19 virus- Primary [facility]* Diagnosis Onset Date Resolution Status Left knee pain acute Back pain acute Segmental and somatic dysfunction of lumbar region acute Segmental and somatic dysfunction of pelvic region acute Segmental and somatic dysfunction of thoracic region acute [facility] Work Phone: Evaluation note* Diagnosis Onset Date Resolution Status Back pain acute Segmental and somatic dysfunction of lumbar region acute Segmental and somatic dysfunction of pelvic region acute Segmental and somatic dysfunction of thoracic region acute Left knee pain acute Osteoarthritis of left knee noneactive Gastroenteritis acute Anxiety acute Preventative health care acu te [facility] Work Phone: evaluation note* Diagnosis Onset Date Resolution Status Left knee pain acute Osteoarthritis of left knee noneactive Gastroenteritis acute Anxiety acute Preventative health care acu te Palpitations noneactive Left knee pain acute Osteoarthritis of left knee noneactive [facility] Work Phone: Evaluation note* Diagnosis Onset Date Resolution Status Gastroenteritis acute Anxiety acute Preventative health care acu te Palpitations noneactive Left knee pain acute Osteoarthritis of left knee noneactive [facility] Work Phone: Evaluation note* Diagnosis Vaginal discharge- Primary Leukorrhea, not specified as infective Vagina itching Pruritus of genital organs documented in this encounter [facility] note* Diagnosis Vulvovaginal itching- Primary Pruritus of genital organs documented in this encounter [facility] note* Diagnosis Onset Date Resolution Status Obesity (BMI 30.0-34.9) acut e Anxiety chronic [facility] Work Phone: Evaluation noteNo assessment information available [facility] Work Phone: evaluation note* Diagnosis Onset Date Resolution Status Left knee pain acute [facility] Work Phone: evaluation note* Diagnosis Onset Date Resolution Status Left knee pain acute Accident in home acute Puncture wound of foot, left acute Former smoker chronic [facility] Work Phone: Evaluation note* Diagnosis Vaginal dryness- Primary Other specified symptom associated with female genital organs Low libido Decreased libido Malaise and fatigue Other malaise and fatigue documented in this encounter [facility] note* Diagnosis Vulvovaginal itching Pruritus of genital organs documented in this encounter [facility] note* Diagnosis Encounter for gynecological examination (general) (routine) without abnormal findings- Primary Stress incontinence Female stress incontinence Encounter for screening mammogram for breast cancer Heterogeneously dense tissue of both breasts on mammography History of obesity Personal history of other specified diseases documented in this encounter [facility] note* Diagnosis Osteoarthritis of left knee, unspecified osteoarthritis type- Primary Anxiety Anxiety state, unspecified Stress incontinence Female stress incontinence History of gestational diabetes Personal history of gestational diabetes Binge-eating disorder, in full remission, mild Screening cholesterol level Screening for lipoid disorders Screening for diabetes mellitus Screening for metabolic disorder Screening for thyroid disorder Screening for deficiency anemia Screening for other and unspecified deficiency anemia History of obesity in adulthood documented in this encounter [facility] note* Diagnosis Encounter for screening mammogram for malignant neoplasm of breast- Primary Other screening mammogram documented in this encounter [facility] note* Diagnosis Encounter for screening mammogram for malignant neoplasm of breast Other screening mammogram documented in this encounter [facility] note* Diagnosis Osteoarthritis of left knee, unspecified osteoarthritis type- Primary Anxiety Anxiety state, unspecified Stress incontinence Female stress incontinence History of gestational diabetes Personal history of gestational diabetes Binge-eating disorder, in full remission, mild History of obesity Personal history of other specified diseases documented in this encounter [facility] note* Diagnosis Osteoarthritis of left knee, unspecified osteoarthritis type- Primary Anxiety Anxiety state, unspecified Stress incontinence Female stress incontinence History of gestational diabetes Personal history of gestational diabetes Binge-eating disorder, in full remission, mild History of obesity Personal history of other specified diseases documented in this encounter [facility] note* Diagnosis Vulvovaginal itching Pruritus of genital organs documented in this encounter [facility] note* Diagnosis Osteoarthritis of left knee, unspecified osteoarthritis type- Primary Anxiety Anxiety state, unspecified Stress incontinence Female stress incontinence History of gestational diabetes Personal history of gestational diabetes Binge-eating disorder, in full remission, mild History of obesity Personal history of other specified diseases documented in this encounter [facility] note* Diagnosis Osteoarthritis of left knee, unspecified osteoarthritis type- Primary Anxiety Anxiety state, unspecified Stress incontinence Female stress incontinence History of gestational diabetes Personal history of gestational diabetes Binge-eating disorder, in full remission, mild History of obesity Personal history of other specified diseases documented in this encounter [facility] note* Diagnosis Osteoarthritis of left knee, unspecified osteoarthritis type- Primary Anxiety Anxiety state, unspecified History of gestational diabetes Personal history of gestational diabetes Binge-eating disorder, in full remission, mild Encounter for long-term (current) use of medications Encounter for long-term (current) use of other medications History of obesity Personal history of other specified diseases documented in this encounter [facility] for referral (narrative)* Diagnostic Procedure Only (Routine) - Pending Review Specialty Diagnoses / Procedures Referred By Ja scott Referred To Contact [facility] Diagnoses Encounter for gynecological examination (general) (routine) without abnormal findings Encounter for screening mammogram for breast cancer Heterogeneously dense tissue of both breasts on mammography Procedures TAMIKO SCREENING W RJ SCREENING DIGITAL BREAST TOMOSYNTHESIS BI SCREENING MAMMOGRAPHY BI 2-VIEW BREAST INC Robyn Snell APRN.[employer] [address] [place] [address] [facility] [address] [place] [phone] Referral ID Status Reason Start Date Expiration Date Visits Requested Visits Authorized [id number] Pending Review Auto-Generat ed Referral 11/23/2023 12/22/2024 1 [facility] Diagnostic Procedure Only (Routine) - Authorized Specialty Diagnoses / Procedures Referred By Ja scott Referred To Contact [facility] Diagnoses Encounter for screening mammogram for malignant neoplasm of breast Procedures TAMIKO SCREENING W RJ SCREENING DIGITAL BREAST TOMOSYNTHESIS BI SCREENING MAMMOGRAPHY BI 2-VIEW BREAST INC Robyn Snell APRN.[employer] [address] [place] [address] [facility] [address] [place] [phone] Referral ID Status Reason Start Date Expiration Date Visits Requested Visits Authorized [id number] Authorized Auto-Generat ed Referral 01/21/2024 02/19/2025 1 1 [facility]No reason for referral information availableWLake [facility]: Reason for visit Narrative* Diagnostic Procedure Only (Routine) - Closed Specialty Diagnoses / Procedures Referred By Ja scott Referred To Contact [facility] Diagnoses Encounter for screening mammogram for malignant neoplasm of breast Procedures TAMIKO SCREENING W RJ SCREENING DIGITAL BREAST TOMOSYNTHESIS BI SCREENING MAMMOGRAPHY BI 2-VIEW BREAST INC Robyn Snell APRN.[employer] [address] [place] [address] [facility] [address] [place] [phone] Referral ID Status Reason Start Date Expiration Date V isits Requested Visits Authorized [id number] Closed Auto-Generate d Referral 01/21/2024 02/19/2025 1 1 [facility] Instructions * Patient Instructions - Cathy Salgado CNP - 01/11/2018 9:52 AM EDT Formatting of this note may be different from the original. Problem List Items Addressed This Visit Pain in right shoulder Pain in shoulder x 3 years, most likely small rotator cuff tear. Encourage very light lifting/weight training to help build up muscle in area. Wellness examination - Primary You are doing amazing, you have lost 20# in the past 8 months. Keep up the diet and exercise. Try to keep stress levels down with your line of work. Other Visit Diagnoses Need for vaccination Relevant Orders Tdap vaccine greater than or equal to 7yo IM (Completed) Well Visit, Ages 18 to 50: Care Instructions Your Care Instructions Physical exams can help you stay healthy. Your doctor has checked your overall health and may have suggested ways to take good care of yourself. He or she also may have recommended tests. At home, you can help prevent illness with healthy eating, regular exercise, and other steps. Follow-up care is a corrigan part of your treatment and safety. Be sure to make and go to all appointments, and call your doctor if you are having problems. It's also a good idea to know your test resultsand keep a list of the medicines you take. How can you care for yourself at home? Reach and stay at a healthy weight. This will lower your risk for many problems, such as obesity, diabetes, heart disease, and high blood pressure. Get at least 30 minutes of physical activity on most days of the week. Walking is a good choice. You also may want to do other activities, such as running, swimming, cycling, or playing tennis or team sports. Discuss any changes in your exercise program with your doctor. Do not smoke or allow others to smoke around you. If you need help quitting, talk to your doctor about stop-smoking programs and medicines. These can increase your chances of quitting for good. Talk to your doctor about whether you have any risk factors for sexually transmitted infections (STIs). Having one sex partner (who does not have STIs and does not have sex with anyone else) is a good way to avoid these infections. Use control if you do not want to have children at this time. Talk with your doctor about thechoices available and what might be best for you. Protect your skin from too much sun. When you're outdoors from 10 a.m. to 4 p.m., stay in the shadeor cover up with clothing and a hat with a wide brim. Wear sunglasses that block UV rays. Even whenit's cloudy, put broad-spectrum sunscreen (SPF 30 or higher) on any exposed skin. See a dentist one or two times a year for checkups and to have your teeth cleaned. Wear a seat belt in the car. Drink alcohol in moderation, if at all. That means no more than 2 drinks a day for men and 1 drink a day for women. Follow your doctor's advice about when to have certain tests. These tests can spot problems early. For everyone Cholesterol. Have the fat (cholesterol) in your blood tested after age 20. Your doctor will tell you how often to have this done based on your age, family history, or other things that can increase your risk for heart disease. Blood pressure. Have your blood pressure checked during a routine doctor visit. Your doctor will tell you how often to check your blood pressure based on your age, your blood pressure results, and other factors. Vision. Talk with your doctor about how often to have a glaucoma test. Diabetes. Ask your doctor whether you should have tests for diabetes. Colon cancer. Have a test for colon cancer at age 50. You may have one of several tests. If you areyounger than 50, you may need a test earlier if you have any risk factors. Risk factors include whether you already had a precancerous polyp removed from your colon or whether your parent, brother, si ster, or child has had colon cancer. For women Breast exam and mammogram. Talk to your doctor about when you should have a clinical breast exam and a mammogram. Medical experts differ on whether and how often women under 50 should have these tests. Your doctor can help you decide what is right for you. Pap test and pelvic exam. Begin Pap tests at age 21. A Pap test is the best way to find cervical cancer. The test often is part of a pelvic exam. Ask how often to have this test. Tests for sexually transmitted infections (STIs). Ask whether you should have tests for STIs. You may be at risk if you have sex with more than one person, especially if your partners do not wear condoms. For men Tests for sexually transmitted infections (STIs). Ask whether you should have tests for STIs. You may be at risk if you have sex with more than one person, especially if you do not wear a condom. Testicular cancer exam. Ask your doctor whether you should check your testicles regularly. Prostate exam. Talk to your doctor about whether you should have a blood test (called a PSA test) for prostate cancer. Experts differ on whether and when men should have this test. Some experts suggest it if you are older than 45 and are -[place] or have a father or brother who got prostatecancer when he was younger than 65. When should you call for help? Watch closely for changes in your health, and be sure to contact your doctor if you have any problems or symptoms that concern you. Where can you learn more? Log into your personal health record on https://[employer].Berst and enter P072 in the Education box to learn more about Well Visit, Ages 18 to 50: Care Instructions. Current as of: October 10, 2016 Content Version: 11.6 3008-6559 [employer]. Care instructions adapted under license by your healthcare professional. If you have questions about a medical condition or this instruction, always ask your healthcare professional. [employer] disclaims any warranty or liability for your use of this information. Tdap (Tetanus, Diphtheria, Pertussis) Vaccine: What You Need to Know Why get vaccinated? Tetanus, diphtheria, and pertussis are very serious diseases. Tdap vaccine can protect us from these diseases. And Tdap vaccine given to women can protect babies against pertussis. Tetanus (lockjaw) is rare in the [place] today. It causes painful muscle tightening and stiffness, usually all over the body. It can lead to tightening of muscles in the head and neck so you can't open your mouth, swallow, orsometimes even breathe. Tetanus kills about 1 out of 10 people who are infected even after receiving the best medical care. Diphtheria is also rare in the [place] today. It can cause a thick coating to form in the back of the throat. It can lead to breathing problems, heart failure, paralysis, and . Pertussis (whooping cough) causes severe coughing spells, which can cause difficulty breathing, vomiting, and disturbed sleep. It can also lead to weight loss, incontinence, and rib fractures. Up to 2 in 100 adolescents and 5 in 100 adults with pertussis are hospitalized or have complications, which could include pneumonia or . These diseases are caused by bacteria. Diphtheria and pertussis are spread from person to person through secretions from coughing or sneezing. Tetanus enters the body through cuts, scratches, or wounds. Before vaccines, as many as 200,000 cases of diphtheria, 200,000 cases of pertussis, and hundreds of cases of tetanus were reported in the [place] each year. Since vaccination began, reports ofcases for tetanus and diphtheria have dropped by about 99% and for pertussis by about 80%. Tdap vaccine The Tdap vaccine can protect adolescents and adults from tetanus, diphtheria, and pertussis. One dose of Tdap is routinely given at age 11 or 12. People who did not get Tdap at that age should get itas soon as possible. Tdap is especially important for health director long term care and anyone having close contact with a baby younger than 12 months. women should get a dose of Tdap during every , to protect the from pertussis. Infants are most at risk for severe, life-threatening complications from pertussis. Another vaccine, called Td, protects against tetanus and diphtheria, but not pertussis. A Td booster should be given every 10 years. Tdap may be given as one of these boosters if you have never gotten Tdap before. Tdap may also be given after a severe cut or burn to prevent tetanus infection. Your doctor or the person giving you the vaccine can give you more information. Tdap may safely be given at the same time as other vaccines. Some people should not get this vaccine A person who has ever had a life-threatening allergic reaction after a previous dose of any diphtheria-, tetanus-, or pertussis-containing vaccine, OR has a severe allergy to any part of this vaccine, should not get Tdap vaccine. Tell the person giving the vaccine about any severe allergies. Anyone who had coma or long repeated seizures within 7 days after a childhood dose of DTP or DTaP, or a previous dose of Tdap, should not get Tdap, unless a cause other than the vaccine was found. They can still get Td. Talk to your doctor if you: Have seizures or another nervous system problem. Had severe pain or swelling after any vaccine containing diphtheria, tetanus, or pertussis. Ever had a condition called Guillain-Schaffer Syndrome (GBS). Aren't feeling well on the day the shot is scheduled. Risks With any medicine, including vaccines, there is a chance of side effects. These are usually mild and go away on their own. Serious reactions are also possible but are rare. Most people who get Tdap vaccine do not have any problems with it. Mild problems following Tdap (Did not interfere with activities) Pain where the shot was given (about 3 in 4 adolescents or 2 in 3 adults) Redness or swelling where the shot was given (about 1 person in 5) Mild fever of at least 100.4?F (up to about 1 in 25 adolescents or 1 in 100 adults) Headache (about 3 or 4 people in 10) Tiredness (about 1 person in 3 or 4) Nausea, vomiting, diarrhea, stomachache (up to 1 in 4 adolescents or 1 in 10 adults) Chills, sore joints (about 1 person in 10) Body aches (about 1 person in 3 or 4) Rash, swollen glands (uncommon) Moderate problems following Tdap (Interfered with activities, but did not require medical attention) Pain where the shot was given (up to 1 in 5 or 6) Redness or swelling where the shot was given (up to about 1 in 16 adolescents or 1 in 12 adults) Fever over 102?F (about 1 in 100 adolescents or 1 in 250 adults) Headache (about 1 in 7 adolescents or 1 in 10 adults) Nausea, vomiting, diarrhea, stomachache (up to 1 to 3 people in 100) Swelling of the entire arm where the shot was given (up to about 1 in 500) Severe problems following Tdap (Unable to perform usual activities; required medical attention) Swelling, severe pain, bleeding and redness in the arm where the shot was given (rare) Problems that could happen after any vaccine: People sometimes faint after a medical procedure, including vaccination. Sitting or lying down for about 15 minutes can help prevent fainting, and injuries caused by a fall. Tell your doctor if you feel dizzy or have vision changes or ringing in the ears. Some people get severe pain in the shoulder and have difficulty moving the arm where a shot was given. This happens very rarely. Any medication can cause a severe allergic reaction. Such reactions from a vaccine are very rare, estimated at fewer than 1 in a million doses, and would happen within a few minutes to a few hours after the vaccination. As with any medicine, there is a very remote chance of a vaccine causing a serious injury or . The safety of vaccines is always being monitored. For more information, visit: www.cdc.gov/vaccinesafety. What if there is a serious problem? What should I look for? Look for anything that concerns you, such as signs of a severe allergic reaction, very high fever, or unusual behavior. Signs of a severe allergic reaction can include hives, swelling of the face and throat, difficulty breathing, a fast heartbeat, dizziness, and weakness. These would usually start a few minutes to a few hours after the vaccination. What should I do? If you think it is a severe allergic reaction or other emergency that can't wait, call or getthe person to the nearest hospital. Otherwise, call your doctor. Afterward, the reaction should be reported to the Vaccine Adverse Event Reporting System (VAERS). Your doctor might file this report, or you can do it yourself through the VAERS web site at www.vaers.hhs.gov, or by calling . VAERS does not give medical advice. The National Vaccine Injury Compensation Program The National Vaccine Injury Compensation Program (VICP) is a federal program that was created to compensate people who may have been injured by certain vaccines. Persons who believe they may have been injured by a vaccine can learn about the program and about filing a claim by calling or visiting the VICP website at www.hrsa.gov/vaccinecompensation. There is a time limit to file a claim for compensation. How can I learn more? Ask your doctor. He or she can give you the vaccine package insert or suggest other sources of information. Call your local or state health department. Contact the Centers for Disease Control and Prevention (CDC): Call (8-488-GAR-INFO) or Visit CDC's website at www.cdc.gov/vaccines Vaccine Information Statement (Interim) Tdap Vaccine (07/21/14) 42 U.S.C. 300aa-26 Department of Health and Human Services Centers for Disease Control and Prevention Many Vaccine Information Statements are available in Irish and other languages. See www.immunize.org/vis. Muchas hojas de informaci n sobre vacunas est n disponibles en espa ol y en otros idiomas. Visite www.immunize.org/vis. Care instructions adapted under license by your healthcare professional. If you have questions about a medical condition or this instruction, always ask your healthcare professional. [employer] disclaims any warranty or liability for your use of this information. in this encounter* Patient Instructions* Ana Maria Baker MD - 05/06/2020 12:55 PM EST Problem List Items Addressed This Visit Musculoskeletal and Integument Lateral epicondylitis - Primary Take naproxen 500 mg as needed for pain. Rest the elbow. Avoid home renovations that require Twisting or 'saw like motions' of the elbow. Use ice packs or over the counter lidocaine cream which can help Other Obesity (BMI 30-39.9) Obesity: Body mass index is 31.61 kg/m .. Recommended therapeutic lifestyle changes including healthy diet starting with a 500 calorie deficit/day and 30-60 min of exercise at least 3 times/week to help with weight loss. Patient can advance exercise regiment as tolerated. Types of exercise include strength training (cross fit, JESSIE, weight lifting) or aerobic exercise(/brisk walk/jogging/running)or a combination of both. We will prescribe adipex for 90 days. Patient was advised of risks and benefits of controlled substance and verbalized understanding. OARRS performed today . Controlled medication contract on file. No suspicious behavior, concerning or suspicious history given at this visit. If any referrals were placed at the time of your visit please allow 2 weeks for processing. If you haven't heard from anyone within 2 weeks please contact my office so we can look into the status of your referral. If you were given any labs today please ensure they are completed according to the directions given. Most normal results will be available through [employer] however if abnormal, you will be notified. Please allow 48-72 hours for review, and let you know what steps, if any, are needed next. If you haven't heard from us after that please call to inquire. If labs were ordered to be done PRIOR to your next visit we will discuss the results at the time ofyour office visit. If any procedures or imaging studies were ordered that must be prior authorized please give us 2 weeks to get them approved. Once approved someone should call you to schedule them or give you a date and time that they were scheduled for. If you haven't heard anything within 2 weeks of the office visit please call the office so we can look into their status. Customer Service/Billing Questions: [phone] [employer] Assistance: [phone] or [phone] Financial Assistance: [phone] or [phone] Body Mass Index: Care Instructions Your Care Instructions Body mass index (BMI) can help you see if your weight is raising your risk for health problems. It uses a formula to compare how much you weigh with how tall you are. A BMI lower than 18.5 is considered underweight. A BMI between 18.5 and 24.9 is considered healthy. A BMI between 25 and 29.9 is considered overweight. A BMI of 30 or higher is considered obese. If your BMI is in the normal range, it means that you have a lower risk for weight-related health problems. If your BMI is in the overweight or obese range, you may be at increased risk for weight-related health problems, such as high blood pressure, heart disease, stroke, arthritis or joint pain, and diabetes. If your BMI is in the underweight range, you may be at increased risk for health problems such as fatigue, lower protection (immunity) against illness, muscle loss, bone loss, hair loss,and hormone problems. BMI is just one measure of your risk for weight-related health problems. You may be at higher risk for health problems if you are not active, you eat an unhealthy diet, or you drink too much alcohol or use tobacco products. Follow-up care is a corrigan part of your treatment and safety. Be sure to make and go to all appointments, and call your doctor if you are having problems. It's also a good idea to know your test resultsand keep a list of the medicines you take. How can you care for yourself at home? Practice healthy eating habits. This includes eating plenty of fruits, vegetables, whole grains, lean protein, and low-fat dairy. If your doctor recommends it, get more exercise. Walking is a good choice. Bit by bit, increase theamount you walk every day. Try for at least 30 minutes on most days of the week. Do not smoke. Smoking can increase your risk for health problems. If you need help quitting, talk to your doctor about stop-smoking programs and medicines. These can increase your chances of quittingfor good. Limit alcohol to 2 drinks a day for men and 1 drink a day for women. Too much alcohol can cause health problems. If you have a BMI higher than 25 Your doctor may do other tests to check your risk for weight-related health problems. This may include measuring the distance around your waist. A waist measurement of more than 40 inches in men or 35 inches in women can increase the risk of weight-related health problems. Talk with your doctor about steps you can take to stay healthy or improve your health. You may needto make lifestyle changes to lose weight and stay healthy, such as changing your diet and getting regular exercise. If you have a BMI lower than 18.5 Your doctor may do other tests to check your risk for health problems. Talk with your doctor about steps you can take to stay healthy or improve your health. You may needto make lifestyle changes to gain or maintain weight and stay healthy, such as getting more healthyfoods in your diet and doing exercises to build muscle. Where can you learn more? Log into your personal health record on https://Mp[employer].Berst and enter S176 in the Education box to learn more about Body Mass Index: Care Instructions. Current as of: May 07, 2019 Content Version: 12.6 [employer]. Care instructions adapted under license by your healthcare professional. If you have questions about a medical condition or this instruction, always ask your healthcare professional. [employer] disclaims any warranty or liability for your use of this information. Starting a Weight Loss Plan: Care Instructions Your Care Instructions If you are thinking about losing weight, it can be hard to know where to start. Your doctor can help you set up a weight loss plan that best meets your needs. You may want to take a class on nutrition or exercise, or join a weight loss support group. If you have questions about how to make changes to your eating or exercise habits, ask your doctor about seeing a registered dietitian or an crop pest control specialist. It can be a big challenge to lose weight. But you do not have to make huge changes at once. Make small changes, and stick with them. When those changes become habit, add a few more changes. If you do not think you are ready to make changes right now, try to pick a date in the future. Makean appointment to see your doctor to discuss whether the time is right for you to start a plan. Follow-up care is a corrigan part of your treatment and safety. Be sure to make and go to all appointments, and call your doctor if you are having problems. It's also a good idea to know your test resultsand keep a list of the medicines you take. How can you care for yourself at home? Set realistic goals. Many people expect to lose much more weight than is likely. A weight loss of 5% to 10% of your body weight may be enough to improve your health. Get family and friends involved to provide support. Talk to them about why you are trying to lose weight, and ask them to help. They can help by participating in exercise and having meals with you, even if they may be eating something different. Find what works best for you. If you do not have time or do not like to cook, a program that offersmeal replacement bars or shakes may be better for you. Or if you like to prepare meals, finding a plan that includes daily menus and recipes may be best. Ask your doctor about other health professionals who can help you achieve your weight loss goals. ? A dietitian can help you make healthy changes in your diet. ? An crop pest control specialist or personal development mentor can help you develop a safe and effective exercise program. ? A counselor or psychiatrist can help you cope with issues such as depression, anxiety, or family problems that can make it hard to focus on weight loss. Consider joining a support group for people who are trying to lose weight. Your doctor can suggest groups in your area. Where can you learn more? Log into your personal health record on https://Mp[employer]hart.Berst and enter U357 in the Education box to learn more about Starting a Weight Loss Plan: Care Instructions. Current as of: May 07, 2019 Content Version: 12.6 [employer]. Care instructions adapted under license by your healthcare professional. If you have questions about a medical condition or this instruction, always ask your healthcare professional. [employer] disclaims any warranty or liability for your use of this information. documented in this encounter* Patient Instructions* Shahla Castañeda MD - 08/26/2020 9:15 AM EDT It was a pleasure to see you today. We have scheduled you for a right breast biopsy. I will call you with your biopsy result. At [facility], we believe in information transparency. If you have MyChart, you will be able to seeyour test results immediately--as soon as they are available. Therefore, you may see some results even before we do. Please give us 2-3 business days to review and reach out to you. We always plan toreview these results with you and decide on a plan together. documented in this encounter Assessments Diagnosis Wellness examination - Prima ry Need for vaccination Need for prophylactic vaccination and inoculation against unspecified single disease Chronic right shoulder pain Pain in joint, shoulder region Diagnosis Lateral epicondylitis, unspecified laterality- Primary Obesity (BMI 30-39.9) Diagnosis Obesity (BMI 30-39.9) Diagnosis Obesity (BMI 30-39.9)- Primary Diagnosis Lateral epicondylitis, unspecified laterality- Primary Diagnosis Cigarette nicotine dependence without complication- Primary Diagnosis Left shoulder pain, unspecified chronicity Lateral epicondylitis, unspecified laterality Diagnosis Cigarette nicotine dependence without complication Diagnosis Encounter for screening for malignant neoplasm of breast, unspecified screening modality- Primary Diagnosis Follow-up examination of abnormal mammogram- Primary Diagnosis Follow-up examination of abnormal mammogram- Primary Diagnosis Stress at home- Primary Diagnosis Follow-up examination of abnormal mammogram Diagnosis Mass of upper inner quadrant of right breast- Primary Abnormal mammogram of right breast Abnormal MRI, breast Follow-up examination of abnormal mammogram Diagnosis Stress at home Diagnosis Mass of upper inner quadrant of right breast Diagnosis Stress at home Summary Purpose Family History No Family History Records Found Relationship Condition Age at Onset Recorded Date/T bryan Not Specified Malignant neoplasm of cervix Unknown Malignant neoplasm of ovary Unknown Heart disease Unknown Malignant melanoma Unknown Mental disorder Unknown Myocardial infarction Unknown Advance Directives No Advanced Directives Records FoundDocuments on File Type Date Recorded Patient Post Anesthesia Nurse Expl anation Advance Directives and Living Will Documents on File Type Date Recorded Patient Post Anesthesia Nurse Expl anation Advance Directives and Living Will Documents on File Type Date Recorded Patient Post Anesthesia Nurse Expl anation Advance Directives and Livin g Will 07/20/2020 12:15 PM Documents on File Type Date Recorded Patient Post Anesthesia Nurse Expl anation Advance Directives and Livin g Will 07/20/2020 12:15 PM Documents on File Type Date Recorded Patient Post Anesthesia Nurse Expl anation Advance Directives and Livin g Will 08/24/2020 11:24 AM Documents on File Type Date Recorded Patient Post Anesthesia Nurse Expl anation Advance Directives and Livin g Will 08/24/2020 11:24 AM Documents on File Type Date Recorded Patient Post Anesthesia Nurse Expl anation Advance Directives and Livin g Will 08/27/2020 11:24 AM Documents on File Type Date Recorded Patient Post Anesthesia Nurse Expl anation Advance Directives and Livin g Will 08/27/2020 11:24 AM Documents on File Type Date Recorded Patient Post Anesthesia Nurse Expl anation Advance Directives and Livin g Will 10/05/2020 11:24 AM Advance Directive Response Recorded Date/ Time Living Will No May 07 017 9:21am Power of Reconciliation Manager No May 07, 2017 9:21am Advance Directive Response Recorded Date/ Time Living Will No February 11, 2022 3:19pm Power of Reconciliation Manager No January 3:19pm Advance Directive Response Recorded Date/ Time Living Will No March 18 11:18am Power of Reconciliation Manager No March 18, 2023 11:18am Advance Directive Response Recorded Date/ Time Living Will No March 21 10:03am Power of Reconciliation Manager No March 21, 2023 10:03am Advance Directive Response Recorded Date/ Time Living Will No May 20 024 11:34am Do you have a Healthcare Power of Reconciliation Manager? 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 Patient's social history, surgical history, family history, past medical history, medications and allergies were reviewed. Patient presents with an acute chief complaint of pain in the left elbow. Patient has been completing an intense amount of renovations with her . She states that his elbow pain started around a month ago around the same time that they were beginning the somatizations. She does state having pain with flexion extension and twisting her elbow. Patient states the pain is a 5 out of 10 and inhibits her from doing some of her physical activities. She denies having any previous history of tinnitus. She denies having any decreased sensation more so than normal or any weakness. Patient does have a bilateral carpal tunnel but there are no acute worsening changes in her fingertips wrists or herforearms. Patient states that there is a point tenderness when she touches near her left elbow and she can appreciate some swelling. There is no erythema noted. Patient denies having any fevers, chills or any external trauma to the area. Patient has not tried any medications as she does not like taking any pain medications. ADDENDUM:Pt also wanted to discuss her weight gain over the last few months due to changes in diet,decreased exercise, as well as other factors with COVID 19 pandemic affecting lifestyle. She has tried adipex in the past and been successful with weight loss. Pt is motivated to improve nutrition and exercise as well. 05/06/2020 1:40 PM Procedure note Patient consented to receiving a steroid injection. We discussed the risk and benefits and they verbalized understanding. The site was prepped in a sterile manner. A steroid injection was performed at left elbow using 1% plain Lidocaine and 20 mg of Kenalog. This was well tolerated. No complications. No blood loss. Patient Active Problem List Diagnosis Pain in right shoulder Wellness examination Vaginal eileen Lateral epicondylitis Obesity (BMI 30-39.9) Past Surgical History: Procedure Laterality Date COSMETIC SURGERY HYSTERECTOMY 04/2017 WISDOM TOOTH EXTRACTION Family History Problem Relation Age of Onset Melanoma Sister Brain cancer Sister Hypertension Mother Hypertension Father Other (heart problems) Father Social History Tobacco Use Smoking status: Current Some Day Smoker Types: Cigarettes Start date: 2019 Smokeless tobacco: Never Used Tobacco comment: SOCIAL ONLY WHEN HAVING DRINKS Substance Use Topics Alcohol use: Yes Comment: SOCIAL Drug use: No Review of Systems: Review of Systems Constitutional: Negative for chills and fever. Respiratory: Negative for cough. Cardiovascular: Negative for chest pain. Gastrointestinal: Negative for nausea. Musculoskeletal: Positive for arthralgias (Left elbow) and joint swelling. Negative for neck pain. Skin: Negative for rash. Neurological: Negative for weakness and numbness. Psychiatric/Behavioral: Negative for suicidal ideas. The patient is nervous/anxious. Physical Exam: BP 120/84 (BP Location: Left arm, Patient Position: Sitting, BP Cuff Size: Adult) Pulse 95 Temp98.3 F (36.8 C) (Temporal) Resp 16 Ht 5' 7 Wt 91.5 kg (201 lb 12.8 oz) LMP 05/14/2017 SpO2 98% BMI 31.61 kg/m Wt Readings from Last 3 Encounters: 05/06/20 91.5 kg (201 lb 12.8 oz) 01/11/18 80.7 kg (178 lb) 03/02/17 87.5 kg (193 lb) BP Readings from Last 3 Encounters: 05/06/20 120/84 09/06/17 106/60 01/11/18 104/70 Physical Exam Constitutional: Appearance: Normal appearance. HENT: Head: Normocephalic and atraumatic. Eyes: Extraocular Movements: Extraocular movements intact. Conjunctiva/sclera: Conjunctivae normal. Neck: Musculoskeletal: Normal range of motion. Cardiovascular: Rate and Rhythm: Normal rate and regular rhythm. Pulses: Normal pulses. Heart sounds: Normal heart sounds. Pulmonary: Effort: Pulmonary effort is normal. Breath sounds: Normal breath sounds. Abdominal: General: Abdomen is flat. Palpations: Abdomen is soft. Musculoskeletal: General: Swelling and tenderness present. Left elbow: She exhibits decreased range of motion (Pain with flexion and extension) and swelling. She exhibits no effusion. Tenderness found. Lateral epicondyle tenderness noted. Skin: General: Skin is warm. Neurological: General: No focal deficit present. Mental Status: She is alert. Mental status is at baseline. She is disoriented. Psychiatric: Mood and Affect: Mood normal. Behavior: Behavior normal. Thought Content: Thought content normal. Judgment: Judgment normal. OARRS OARRS/NARxCHECK Report Received and Assessed: 05/06/2020 Date controlled substance agreement signed: 05/06/2020 Date of last drug screen: 05/06/2020 Functional Assessment: No data found Health Maintenance Due Topic Date Due Wellness Visit 07/31/1983 HIV Screening 07/31/1995 Hepatitis C Screening 1998 Sequential Influenza Vaccine (1) 01/27/2020 PHQ9: JENSEN-7 Tobacco Counseling: Ready to quit: Not Answered Counseling given: Not Answered Comment: SOCIAL ONLY WHEN HAVING DRINKS No current outpatient medications on file. No current facility-administered medications for this visit. Assessment/Plan: Problem List Items Addressed This Visit Musculoskeletal and Integument Lateral epicondylitis - Primary Take naproxen 500 mg as needed for pain. Rest the elbow. Avoid home renovations that require Twisting or 'saw like motions' of the elbow. Use ice packs or over the counter lidocaine cream which can help Other Obesity (BMI 30-39.9) Obesity: Body mass index is 31.61 kg/m .. Recommended therapeutic lifestyle changes including healthy diet starting with a 500 calorie deficit/day and 30-60 min of exercise at least 3 times/week to help with weight loss. Patient can advance exercise regiment as tolerated. Types of exercise include strength training (cross fit, JESSIE, weight lifting) or aerobic exercise(/brisk walk/jogging/running)or a combination of both. We will prescribe adipex for 90 days. Patient was advised of risks and benefits of controlled substance and verbalized understanding. OARRS performed today . Controlled medication contract on file. No suspicious behavior, concerning or suspicious history given at this visit. Return in about 3 months (around 08/04/2020) for Annual Exam. Please note: Portions of this chart may have been created with FRS voice recognition software. Occasional wrong-word or sound-like substitutions may have occurred due to inherent limitations of the voice recognition software. Please read the chart carefully and recognize, using context, where the substitutions have occurred. For any new medications prescribed today, patient was educated about indications for the medication, how to take the medication and potential side effects of the medications. Ana Maria Baker MD Depression Screening 05/06/2020 Little interest or pleasure in doing things 0 Feeling down, depressed, or hopeless 0 PHQ-2 Total Score 0 Trouble falling or staying asleep, or sleeping too much 0 Feeling tired or having little energy 0 Poor appetite or overeating 3 Feeling bad about yourself - or that you are a failure or have let yourself or your family down 0 Trouble concentrating on things, such as reading the newspaper or watching television 2 Moving or speaking so slowly that other people could have noticed. Or the opposite - being so fidgety or restless that you have been moving around a lot more than usual 0 Thoughts that you would be better off , or of hurting yourself in some way 0 PHQ-9 Total Score 5 documented in this encounter* Ana Maria Baker MD - 07/07/2020 9:37 AM EST OARRs reviewed- 110 Last refill of adipex filled today documented in this encounter* Chato Britton PT - 07/22/2020 7:00 AM EST [facility] Evaluation Today's Date 07/22/2020 Patient Name: Do lOson Date of : 1980 Case Name: Left Elbow and Shoulder Pain Functional Diagnosis: 1. Left shoulder pain, unspecified chronicity 2. Lateral epicondylitis, unspecified laterality Clinical Information: Subjective Referring Diagnosis: Left Lateral Epicondylitis and Left Shoulder Pain History of Present Illness Subjective History: Pt reports c/o left shoulder and left elbow pain. 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 She states her shoulder started hurting about one month ago. She cannot recall any specific injury but was working out a couple days before the pain began. She reports h/o bilateral carpal tunnel. She has received a Cortisone injection in her elbow but it provided little relief. Previous Imaging: X-ray Hand dominance: right Pain Scale: Pain location: shoulder Average Pain: 4/10 Pain at highest: 8/10 Aggravating factors: abduction, lifting, gripping, repeated movements of the wrist/hand Easing factors: rest, ice, Aleve prn 24 Hour Symptom Behavior Morning Pain: gradual End of day pain: worse Personal Goals: Decrease pain and return to prior activity level Social Support: Adventism, social, or cultural considerations to be made aware of before starting treatment: NoActivities of Daily Living: independent with all Instrumental Activities of Daily Living: independent with all 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 Muscle Strength: Flexion: 5 Extension: 5 Abduction: 5 (painful) Adduction: 5 IR: 5 ER: 5 Special Testing Cross arm: Negative Empty can: Positive Load shift: Negative Neer/Impingement: Negative ER lag: Negative IR lag: Negative Additional Comments: FOTO: 58 Elbow Right Elbow Right Elbow WFL Left Elbow Tenderness: lateral epiondyle and olecranon fossa Range of Motion: WFL Muscle Strength: Flexion: 5 Extension: 5 Wrist Flexion: 5 Wrist Extension: 5 (painful) Pronation: 5 Supination: 5 Special Testing Middle finger extension: Positive Additional Findings Sensation: normal Additional Comments: Pt reports increased pain with gripping, especially with the wrist slightly extended FOTO: 59 Treatments: Physical Therapy Exercise Log - 07/22/20 0752 OTHER Notes Visit 1: 7:05 - 7:50 Therapeutic Exercise (15130) Intervention Provided RTB and written HEP handouts consisting of the following: Parameters ER doorway stretch Intervention cane assisted abd Parameters scap retractions Intervention prone rows, ext and horz abd Parameters side lying ER Intervention serratus punches Parameters finger/wrist flex and ext stretches Intervention resisted pronation/supination Parameters resisted ulnar/radial deviation and wrist flexion Intervention biceps curls Parameters consider radial head mobs and elbow traction PT Treatment Times Total Treatment Time 45 Goals: Physical Therapy Ortho Goals: CARRYING/MOVING/HANDLING: Patient will be able to lift and carry without restriction in 4 weeks SELF CARE: Patient will be able to complete ADL's, housekeeping and desired leisure activities without difficulty in 4 weeks. IMPAIRMENT: Patient will demonstrate improved postural awareness in PT sessions to facilitate mechanical alignment and function in 2 weeks. IMPAIRMENT: Improve pain from 8/10 to <4/10 during reaching away from the body and repetitious activities in 4 weeks IMPAIRMENT: Improve AROM of Left Shoulder Abduction from 106 degrees to at least 160 degrees in 4 weeks. OTHER: Patient will increase FOTO score from 58/59 to at least 70 to show MDC/MCII and expected functional outcome in 4 weeks. OTHER: Patient will be able to properly demonstrate independence with HEP in 1 week. CPT Code 90945 Low 85469 Moderate 62870 High History 0 1-2 3+ Comorbidities: chronic pain, Personal factors: chronicity or severity of the current condition Examination of body systems (elements of body structures & functions, activity limitations, and/or participation restrictions) 1-2 elements 3+ elements 4+ elements See below clinical impression Clinical Presentation Stable Evolving Unstable As evidenced by reproduction of or changes in symptoms with certain movements Decision Making Low (FOTO >/= 69) Moderate (FOTO 34 - 68) High (FOTO </= 33) FOTO score= 58/59 Pt is a 39 y.o. female who presents to PT services with c/o left shoulder and left elbow pain. Uponassessment, pt has been found with the following impairments: impaired posture, decreased ROM, decreased strength and pain. The documented impairments result in the following functional limitations: filling hauler, regular PA/exercise, recreational activities, quality of life, lifting for work/ADLs, carrying and reaching. The pt would benefit from skilled PT services focused on the above listedimpairments and limitations in order to safely progress pt to their desired level of function. Pt to be discharged from OP PT services if/when goals are met, if they fail to make progress with conservative management in PT, if their level of progress plateaus, or if they do not maintain compliance with attendance or HEP. At this time, it is my clinical judgment that services are medically necessary. Plan of Care Frequency of Visits: 1-2 times per week Duration: 4 weeks Interventions: Therapeutic Exercise, Neuromuscular Re-Education, Manual Therapy, Hot/Cold Pack, Ultrasound and Vasopneumatic Rehab Potential: good Suicide Screen Signs and Symptoms of Abuse/Neglect: No Actions Taken: No Suicide Risk: Does the patient feel like ending their life today?No Actions Taken: No Patient Education Provided Pt was educated on the benefits of therapy and importance of compliance with sessions and HEP for rehabilitation. Pt was also educated on treatment diagnosis, POC, and frequency/duration of treatment. Patient was also educated on the use of Dexamethasone which could be ordered from a Pharmacy with P hysician prescription and applied via stat patches. Clinical Impression Pt would benefit from PT interventions for possible infraspinatus strain and lateral epicondylitis to address impairments in ROM, strength and stability as well as pain control. Chato Britton PT State License, [id number] documented in this encounter* Ana Maria Baker MD - 08/24/2020 2:19 PM EDT Discussed breast MRI findings with the patient and advised that further testing would be required with a biopsy to be definitive. Patient was very distraught and has been anxious all day during her MRI. I did advised the patient that I would send in xanax medication to help with her anxiety acutely. She verbalized understanding. documented in this encounter* Shahla Castañeda MD - 08/26/2020 9:15 AM EDT Date of Service: 08/26/20 Patient Name: Do Olson MR #: [id number] : 1980 Physicians: Ana Maria Baker MD (Family); Ana Maria Baker MD Chief Complaint/Reason for Visit: Chief Complaint Patient presents with Initial Visit (Intake) right breast mass CAT4 HPI: Do Olson is a 40 y.o. premenopausal female who presents today for evaluation and management of abnormal right breast imaging. She is accompanied in the office today by her Woodrow. She underwent baseline screening mammogram on 08/13/2020 at the [facility] which was given a BIRADS 0 for an asymmetry in the upper right breast, posterior depth. She underwent diagnostic bilateral mammogram and targeted right breast ultrasound on 08/19/[address] [facility] radiology which was given a BIRADS III for her mammographic asymmetry which was located atthe 2 o'clock position. There was no ultrasound correlate identified. She underwent further evaluation with bilateral breast MRI at [place] 08/24/2020 which identified a 2 x 1.1 x 1.2 cm mass at the2 o'clock position, 7 cm from the nipple and was given a BI-RADS 4A. Second look ultrasound with ult rasound-guided versus stereotactic biopsy has been recommended and she presents today for pre-biopsy consult. Aside from some right breast pain, she denies symptoms related to her breasts. Specifically, she denies palpable lumps in the breast/axilla/supraclavicular region, nipple discharge, skin dimpling, skin thickening, erythema, swelling, and other tenderness. She does not perform self breast exam. BRIEF ONCOLOGIC/BREAST HISTORY: No prior breast biopsies or personal history of cancer. 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 Age of menopause: N/A Breast Cancer Risk Assessment by Lucia Model: 5-year risk: 0.4 % Lifetime risk: 7.3 % PMH: Past Medical History: Diagnosis Date Abnormal mammogram Breast pain Gestational diabetes 2012 Right shoulder pain 06/10/2015 PSH: Past Surgical History: Procedure Laterality Date COSMETIC SURGERY HYSTERECTOMY 04/2017 ID ENLARGE BREAST WISDOM TOOTH EXTRACTION FMH: Family History Problem Relation Age of Onset Melanoma Sister 43 Brain cancer Sister 43 Hypertension Mother Hypertension Father Other (heart problems) Father Cervical cancer Maternal Aunt Cancer-related family history includes Brain cancer (age of onset: 43) in her sister; Cervical cancer in her maternal aunt; Melanoma (age of onset: 43) in her sister. SOCIAL Hx: Social History Occupational History Not on file Tobacco Use Smoking status: Current Some Day Smoker Types: Cigarettes Start date: 2019 Smokeless tobacco: Never Used Tobacco comment: SOCIAL ONLY WHEN HAVING DRINKS Substance and Sexual Activity Alcohol use: Yes Comment: SOCIAL Drug use: No Sexual activity: Yes Partners: Male control/protection: Surgical OB Hx: OB History 2 Para 2 Term AB Living 2 SAB TAB Ectopic Multiple Live Births Obstetric Comments Age first live 19 MEDS: Current Outpatient Medications Medication Sig Dispense Refill ALPRAZolam (XANAX) 0.25 MG tablet Take 1 (one) tablet (0.25 mg total) by mouth 3 (three) times a day as needed for anxiety (Days supply per fill: 3) . 9 tablet 0 buPROPion (Wellbutrin XL) 150 MG 24 hr tablet Take 1 (one) tablet (150 mg total) by mouth daily . 90 tablet 3 cetirizine (ZYRTEC) 10 MG tablet fluconazole (DIFLUCAN) 150 MG tablet TAKE 1 TABLET BY MOUTH for 1 dose, repeat in 3 days if symptoms persist. No current facility-administered medications for this visit. ALLERGIES: Allergies: Patient has no known allergies. ROS: Review of Systems Constitutional: Positive for activity change and appetite change. Negative for chills, diaphoresis,fatigue, fever and unexpected weight change. HENT: Positive for rhinorrhea. Negative for congestion, dental problem, drooling, ear discharge, ear pain, facial swelling, hearing loss, mouth sores, nosebleeds, postnasal drip, sinus pressure, sneezing, sore throat, tinnitus, trouble swallowing and voice change. Eyes: Negative for photophobia, pain, discharge, redness, itching and visual disturbance. Respiratory: Positive for chest tightness. Negative for apnea, cough, choking, shortness of breath,wheezing and stridor. Cardiovascular: Negative for chest pain, palpitations and leg swelling. Gastrointestinal: Negative for abdominal distention, abdominal pain, anal bleeding, blood in stool,constipation, diarrhea, nausea, rectal pain and vomiting. Endocrine: Negative for cold intolerance, heat intolerance, polydipsia, polyphagia and polyuria. Genitourinary: Negative for decreased urine volume, difficulty urinating, dyspareunia, dysuria, enuresis, flank pain, frequency, genital sores, hematuria, menstrual problem, pelvic pain, urgency, vaginal bleeding, vaginal discharge and vaginal pain. Musculoskeletal: Negative for arthralgias, back pain, gait problem, joint swelling, myalgias, neck pain and neck stiffness. Skin: Negative for color change, pallor, rash and wound. Allergic/Immunologic: Negative for environmental allergies, food allergies and immunocompromised state. Neurological: Negative for dizziness, tremors, seizures, syncope, facial asymmetry, speech difficulty, weakness, light-headedness, numbness and headaches. Hematological: Negative for adenopathy. Does not bruise/bleed easily. Psychiatric/Behavioral: Negative for agitation, behavioral problems, confusion, decreased concentration, dysphoric mood, hallucinations, self-injury, sleep disturbance and suicidal ideas. The patientis nervous/anxious. The patient is not hyperactive. Sexual Health: Negative for decreased sexual drive, negative for difficulty reaching orgasm. Breast: breast mass-no, nipple discharge-no, breast pain-yes, skin changes-no, nipple inversion-no Physical Examination: Vital Signs: Ht 5' 7 Wt 85.7 kg (189 lb) LMP 05/14/2017 No BMI 29.60 kg/m Physical Exam Pulmonary/Chest: Bilaterally, there are well-healed inframammary fold incisions from prior augmentation. Implants soft. LEFT BREAST: No palpable masses, no thickening or dimpling of the skin, no nipple discharge or retraction, no edema or induration, no erythema. No axillary lymphadenopathy. Grade 1 ptosis. RIGHT BREAST: There is an accessory nipple on the inferior pole. I am unable to palpate the mass identified on recent breast imaging. No palpable masses, no thickening or dimpling of the skin, no nipple discharge or retraction, no edema or induration, no erythema. No axillary lymphadenopathy. Grade1 ptosis. LYMPHATIC: No cervical or supraclavicular lymphadenopathy. GENERAL: Well developed, well nourished, alert and cooperative, appears to be in no acute distress. HEAD: Normocephalic, atraumatic. EYES: Conjunctivae clear, EOMI, no scleral icterus, pupils equal. EARS: No discharge, hearing grossly intact. NOSE/THROAT: Wearing mask. NECK: Neck supple, no cervical masses, trachea midline, no cervical lymphadenopathy. CARDIAC: Hemodynamically stable. LUNGS: Respirations unlabored. ABDOMEN: Soft, non-tender, non-distended. MUSCULOSKELETAL: No muscle wasting. Strength/tone grossly normal. EXTREMITIES: Warm, moves all, no edema. NEUROLOGICAL: No focal deficits, normal speech. SKIN: No rash, petechiae, or ecchymosis of examined areas. PSYCHIATRIC: Affect appropriate. IMAGING: I have independently reviewed the most recent breast imaging which includes bilateral diagnostic mammogram and targeted right breast ultrasound from 08/19/2020, bilateral breast MRI from 08/24/2020 BI-RADS 4A. She has heterogeneously dense tissue on mammogram. ASSESSMENT: 40 y.o. female with abnormal right breast imaging a 2 x 1.1 x 1.2 cm circumscribed mass at the 2 o'clock position, 7 cm from the nipple. 1. Mass of upper inner quadrant of right breast US Breast Right Limited US Breast Biopsy Right Mammography Stereotactic Breast Biopsy Right 2. Abnormal mammogram of right breast 3. Abnormal MRI, breast 4. Follow-up examination of abnormal mammogram Ambulatory referral to Breast Clinic Orders Placed This Encounter Procedures US Breast Right Limited US Breast Biopsy Right Mammography Stereotactic Breast Biopsy Right PLAN: 1. Plan for right breast ultrasound-guided vs stereotactic biopsy. We discussed that this lesion isindeterminate and the biopsy is recommended to exclude malignancy. 2. We will perform a second look right breast ultrasound prior to her biopsy to determine the best imaging modality for biopsy. 3. We discussed the rationale for biopsy and how this procedure is performed. 4. We will call the patient with her results and will schedule the appropriate follow-up at that time. 5. All of the patient's questions were answered in the office today. She leaves in stable conditionand in agreement with the above plan. It is always a privilege to take care of your patients. Please do not hesitate to call me with any questions. Shahla Castañeda MD Breast Surgical Oncology [facility] Breast [facility] Surgeons Office Office CC: Patient Care Team: Ana Maria Baker MD as PCP - General (Internal Medicine) AnaM aria Baker MD as PCP - [facility] Provider - [facility] documented in this encounter* Keily Ken RN - 08/27/2020 1:52 PM EDT Breast Health Nurse Contact Met with patient prior to biopsy. Provided review of biopsy procedure. Pt. verbalized good understanding. Right ultrasound breast biopsy completed without complications. Bleeding stopped with manual pressure. Steri-strips & ice applied to biopsy site. Discharge instructions given verbally and in printed form. Pt. discharged to home in good condition. Viktoriya Ken RN, BSN, [facility] Nurse Navigator [address] [facility], [address] [phone] documented in this encounter Reason for Referral Status Reason Specialty Diagnoses / Procedures Referred By Contact Referred To Contact Authorized Specialty Services Required/Patie nt's Best Interest Rehabilitation Diagnoses Lateral epicondylitis, unspecified laterality Ana Maria Baker MD [address] [facility] [place] [address] [facility] [place] [address] [place] [address] Status Reason Specialty Diagnoses / Procedures Referred By Contact Referred To Contact Authorized Patient Preference Diagnoses Encounter for screening for malignant neoplasm of breast, unspecified screening modality Procedures Mammography Screening Bilateral Ana Maria Baker MD [address] [place] [address] [facility] [address] [place] [address] Phone: [phone] Status Reason Specialty Diagnoses / Procedures Referred By Contact Referred To Contact Authorized Radiology Diagnoses Follow-up examination of abnormal mammogram Procedures Mammography Diagnostic Bilateral Ana Maria Baker MD [address] [place] [address] Status Reason Specialty Diagnoses / Procedures Referred By Contact Referred To Contact Authorized Radiology Diagnoses Follow-up examination of abnormal mammogram Procedures MR Breast Right With Contrast Ana Maria Baker MD [address] [place] [address] [place] [phone] Status Reason Specialty Diagnoses / Procedures Referred By Contact Referred To Contact New Request Radiology Diagnoses Follow-up examination of abnormal mammogram Procedures MR Breast Bilateral With And Without Contrast Ana Maria Baker MD [address] [place] [address] Status Reason Specialty Diagnoses / Procedures Referred By Contact Referred To Contact Authorized Radiology Diagnoses Stress at home Procedures US Breast Biopsy Right Ana Maria Baker MD [address] [place] [address] Status Reason Specialty Diagnoses / Procedures Referred By Contact Referred To Contact Authorized Specialty Services Required/Patie nt's Best Interest Breast Surgery Diagnoses Follow-up examination of abnormal mammogram Ana Maria Baker MD [address] [place] [address] Shahla Castañeda MD [address] [place] [address] Status Reason Specialty Diagnoses / Procedures Referred By Contact Referred To Contact Closed Patient Preference Radiology Diagnoses Follow-up examination of abnormal mammogram Procedures MR Breast Bilateral With And Without Contrast Ana Maria Baker MD [address] [place] [address] Status Reason Specialty Diagnoses / Procedures Re ferred By Contact Referred To Contact New Request Radiology Diagnoses Mass of upper inner quadrant of right breast Procedures Mammography Stereotactic Breast Biopsy Right Shahla Castañeda MD [address] [place] [address] Status Reason Specialty Diagnoses / Procedures Referred By Contact Referred To Contact Pending Review Radiology Diagnoses Mass of upper inner quadrant of right breast Procedures US Breast Biopsy Right Shahla Castañeda MD [address] [place] [address] Status Reason Specialty Diagnoses / Procedures Referred By Contact Referred To Contact Pending Review Radiology Diagnoses Mass of upper inner quadrant of right breast Procedures US Breast Right Limited Shahla Castañeda MD [address] [place] [address] Status Reason Specialty Diagnoses / Procedures Re ferred By Contact Referred To Contact Canceled Radiology Diagnoses Mass of upper inner quadrant of right breast Procedures Mammography Stereotactic Breast Biopsy Right Shahla Castañeda MD [address] [place] [address] Status Reason Specialty Diagnoses / Procedures Referred By Contact Referred To Contact Closed Radiology Diagnoses Stress at home Procedures US Breast Biopsy Right Ana Maria Baker MD [address] [place] [address] Status Reason Specialty Diagnoses / Procedures Referred By Contact Referred To Contact Pending Review Radiology Diagnoses Stress at home Procedures Mammography Follow-up Post Clip Placement Ana Maria Baker MD [address] [place] [address] Discharge Instructions * Instructions* Radha Nair, TECHNOLOGIST - 08/27/2020 After the Biopsy: We will apply pressure over the biopsy site for a few minutes to stop any bleeding, and then apply steri-strips, which are strips of paper-like tape on the skin incision. Remove the steri-strips after five days, if they are still on. If irritation occurs before five days, you may remove the strips and apply a band-aid. Any bruising that occurs at the biopsy site should fade in one to two weeks. We will apply an ice pack to the biopsy site inside your bra before you leave. At home, apply an ice pack to your breast to relieve swelling and reduce bruising. Apply ice for 20 minutes at a time, with a 30 minute break in between. Do not apply ice directly toyour skin. You may take Tylenol for discomfort. Do not take aspirin or aspirin-like drugs, such as Motrin , Advil , or Aleve . You may shower 24 hours after your biopsy. Avoid strenuous activity and lifting . Do not lift anything over 5 pounds for 24 hours after the biopsy. Otherwise, you may resume normal activities as long as you are feeling well. Wear a tight bra after the biopsy and to bed the first night. Call your doctor if you have: Bleeding or drainage from the biopsy site Excess swelling, redness or warmth at the biopsy site Pain that is not relieved by your normal pain medication Biopsy Results Your doctor will have the biopsy results within three to four business days. Call your Doctor (breast surgeon) if you have not received the results within that time. For more information, contact your breast health nurse. You may call your surgeon at any time. documented in this encounter Chief Complaint and Reason for Visit Chief Complaint LEFT KNEE xray EST CARE PAIN Reason for Visit Left knee pain Back pain Segmental and somatic dysfunction of lumbar region Segmental and somatic dysfunction of pelvic region Segmental and somatic dysfunction of thoracic region Chief Complaint EST CARE PAIN left knee N/V/D/ ILL >24HRS EST CARE - NPP SENT Reason for Visit Back pain Segmental and somatic dysfunction of lumbar region Segmental and somatic dysfunction of pelvic region Segmental and somatic dysfunction of thoracic region Left knee pain Osteoarthritis of left knee Gastroenteritis Anxiety Preventative health care Chief Complaint left knee N/V/D/ ILL >24HRS EST CARE - NPP SENT HEART PALPITATION left knee PALP Reason for Visit Left knee pain Osteoarthritis of left knee Gastroenteritis Anxiety Preventative health care Palpitations Left knee pain Osteoarthritis of left knee Chief Complaint N/V/D/ ILL >24HRS EST CARE - NPP SENT HEART PALPITATION left knee PALP left foot Reason for Visit Gastroenteritis Anxiety Preventative health care Palpitations Left knee pain Osteoarthritis of left knee Chief Complaint 3 M FU SCREENING Reason for Visit Obesity (BMI 30.0-34 .9) Anxiety Chief Complaint SCREENING LEFT KNEE PAIN Chief Complaint SCREENING LEFT KNEE PAIN knee left foot injury Reason for Visit Left knee pain Chief Complaint SCREENING LEFT KNEE PAIN knee left foot injury ER Follow Up Reason for Visit Left knee pain Accident in home Puncture wound of foot, left Former smoker Chief Complaint Admit Date Right open Carpal Tunnel Release, left c arpal tunn June 10, 2024 5:57am Right open Carpal Tunnel Release, left c arpal tunn June 10, 2024 7:17am right hamstring August 04, 2024 1:4 3pm RM 2 August 04, 2024 2:1 6pm HAMSTRING RUPTURE, PAIN August 07, 2024 10:30am RIGHT LEG August 07, 2024 3:2 1pm Reason for Visit Admit Date Right hamstring injury August 04, 2024 1:43pm Right hamstring injury August 07, 2024 3:21pm Tear of right hamstring August 07, 2024 3:21pm Chief Complaint Admit Date right hamstring August 04, 2024 1:4 3pm RM 2 August 04, 2024 2:1 6pm HAMSTRING RUPTURE, PAIN August 07, 2024 10:30am RIGHT LEG August 07, 2024 3:2 1pm LEFT WRIST September 26, 2024 8:47am RT HAMSTRING/PT HAS RX October 17, 2024 7: 30am Reason for Visit Admit Date Right hamstring injury August 04, 2024 1:43pm Right hamstring injury August 07, 2024 3:21pm Tear of right hamstring August 07, 2024 3:21pm Left carpal tunnel syndrome September 26 8:47am Additional Source Comments Assessment & Plan Note - Cathy Salgado CNP - 01/11/2018 9:49 AM EDTAssessment & Plan Note - Cathy Salgado CNP - 01/11/2018 9:48 AM EDT Miscellaneous Notes (unrecog nized section and content) Associated Problem(s): Wellness examination You are doing amazing, you have lost 20# in the past 8 months. Keep up the diet and exercise. Try to keep stress levels down with your line of work. Try to get me records of your lab results in July. Associated Problem(s): Pain in right shoulder Pain in shoulder x 3 years, most likely small rotator cuff tear. Encourage very light lifting/weight training to help build up muscle in area.in this encounter Addended by: ANA MARIA BAKER on: 05/06/2020 01:56 PM Modules accepted: Orders Addended by: ANA MARIA BAKER on: 05/06/2020 01:43 PM Modules accepted: Orders Associated Problem(s): Obesity (BMI 30-39.9) Obesity: Body mass index is 31.61 kg/m .. Recommended therapeutic lifestyle changes including healthy diet starting with a 500 calorie deficit/day and 30-60 min of exercise at least 3 times/week to help with weight loss. Patient can advance exercise regiment as tolerated. Types of exercise include strength training (cross fit, JESSIE, weight lifting) or aerobic exercise(/brisk walk/jogging/running) or a combination of both. We will prescribe adipex for 90 days. Patient was advised of risks and benefits of controlled substance and verbalized understanding. OARRS performed today . Controlled medication contract on file. No suspicious behavior, concerning or suspicious history given at this visit. Associated Problem(s): Lateral epicondylitis Take naproxen 500 mg as needed for pain. Rest the elbow. Avoid home renovations that require Twisting or 'saw like motions' of the elbow. Use ice packs or over the counter lidocaine cream which can help documented in this encounter Addended by: ANA MARIA BAKER on: 08/20/2020 09:27 AM Modules accepted: Orders Addended by: ANA MARIA BAKER on: 08/20/2020 09:26 AM Modules accepted: Orders documented in this encounter Addended by: ANA MARIA BAKER on: 08/20/2020 09:26 AM Modules accepted: Orders documented in this encounter Procedure: 14G US guided breast biopsy Indication: mass Site: Right 2:00 Results: S/p biopsy Complication: none Treatment Plan: Pathology pending documented in this encounter INFORMATION SOURCE (unrecogn ized section and content) DATE CREATED AUTHOR 06/30/2018 [facility] DATE CREATED AUTHOR AUTHOR'S ORGANIZ ATION 07/22/2020 [facility] DATE CREATED AUTHOR AUTHOR'S ORGANIZ ATION 08/22/2020 [facility] DATE CREATED AUTHOR AUTHOR'S ORGANIZ ATION 10/19/2020 [facility] DATE CREATED AUTHOR AUTHOR'S ORGANIZ ATION 12/09/2020 [facility] DATE CREATED AUTHOR AUTHOR'S ORGANIZ ATION 01/10/2021 [facility] DATE CREATED AUTHOR AUTHOR'S ORGANIZ ATION 02/23/2021 [facility] [place] DATE CREATED AUTHOR AUTHOR'S ORGANIZ ATION 12/20/2024 [facility] DATE CREATED AUTHOR AUTHOR'S ORGANIZ ATION 12/25/2024 [facility] Reason for Visit (unrecogniz ed section and content) Reason Comments Pain L ELBOW Anxiety Weight Loss Reason Comments Physical Therapy Status Reason Specialty Diagnoses / Procedures Referred By Contact Referred To Contact Authorized Specialty Services Required/Rafaela ent's Best Interest Rehabilitation Diagnoses Lateral epicondylitis, unspecified laterality Ana Maria Baker MD [address] [address] Rehab [place] [address] [address] [place] [address] Reason Onset Date Comments Medication Refill 07/22/2020 Status Reason Specialty Diagnoses / Procedures Referred By Contact Referred To Contact Closed Patient Preference Radiology Diagnoses Follow-up examination of abnormal mammogram Procedures MR Breast Bilateral With And Without Contrast Ana Maria Baker MD [address] [place] [address] Reason Comments Initial Visit (Intake) right breast mass CAT4 Status Reason Specialty Diagnoses / Procedures Referred By Contact Referred To Contact Closed Specialty Services Required/Patien t's Best Interest Breast Surgery Diagnoses Follow-up examination of abnormal mammogram Ana Maria Baker MD [address] [place] [address] Shahla Castañeda MD [address] [place] [address] [address] [place] [id number] Status Reason Specialty Diagnoses / Procedures Re ferred By Contact Referred To Contact Canceled Radiology Diagnoses Mass of upper inner quadrant of right breast Procedures Mammography Stereotactic Breast Biopsy Right Shahla Castañeda MD [address] [place] [address] [address] [place] [address] Status Reason Specialty Diagnoses / Procedures Referred By Contact Referred To Contact Closed Radiology Diagnoses Stress at home Procedures US Breast Biopsy Right Ana Maria Baker MD [address] [place] [address] Status Reason Specialty Diagnoses / Procedures Referred By Contact Referred To Contact Pending Review Radiology Diagnoses Mass of upper inner quadrant of right breast Procedures US Breast Right Limited Shahla Castañeda MD [address] [facility] [address] [place] [address] Status Reason Specialty Diagnoses / Procedures Referred By Contact Referred To Contact Pending Review Radiology Diagnoses Stress at home Procedures Mammography Follow-up Post Clip Placement Ana Maria Baker MD [address] [place] [address] Reason Comments Annual Exam Status Reason Specialty Diagnoses / Procedures Referred By Contact Referred To Contact Authorized Specialty Services Required/Rafaela ent's Best Interest Rehabilitation Diagnoses Lateral epicondylitis, unspecified laterality Ana Maria Baker MD [address] [address] Re[facility] [place] [address] [place], [place] [phone] Reason Comments Vaginal Problem Discharge Reason Comments Patient Question Reason Comments Vaginal Problem Reason Comments Well Woman Reason Onset Date Comments Weight Management 12/25/2023 Reason Comments Orders Reason Comments Weight Management Reason Comments Follow Up Weight Management Reason Onset Date Comments Refill Request 04/15/2024 Care Teams (unrecognized sec tion and content) Trauma Doctor Relationship Specialty Start Date End Date Ana Maria Baker MD [address] [place] [address] PCP - General Internal Medicine 05/06/20 Ana Maria Baker MD [facility] [place] [address] PCP - MARY KAY Attributed Provider - [facility] 06/27/20 Robyn Bergeron RN Patient Navigator 08/27/20 Sherry Bagley PA-C [address] [address] Physician Scientific Informatics Analyst Physician Scientific Informatics Analyst 11/25/20 Trauma Doctor Relationship Specialty Start Date End Date Ana Maria Baker MD [address] [place] [address] PCP - General Internal Medicine 05/06/20 Ana Maria Baker MD [address] [place] [id number] PCP - MARY KAY Attributed Provider - [facility] 06/27/20 Robyn Bergeron RN Patient Navigator 08/27/20 Sherry Bagley PA-C [address] [address] Physician Scientific Informatics Analyst Physician Scientific Informatics Analyst 11/25/20 Trauma Doctor Relationship Specialty Start Date End Date Ana Maria Baker MD [address] [address] PCP - General Internal Medicine 05/06/20 Ana Maria Baker MD [address] [address] PCP - MARY KAY [facility] Provider - [facility] 06/27/20 Robyn Bergeron, RN Patient Navigator 08/27/20 Sherry Bagley PA-C [address] [address] Physician Scientific Informatics Analyst Physician Scientific Informatics Analyst 11/25/20 Trauma Doctor Relationship Specialty Start Date End Date Ana Maria Baker MD [address] [place] [address] PCP - General Internal Medicine 05/06/20 Robyn Bergeron, RN Patient Navigator 08/27/20 Sherry Bagley PA-C [address] [address] Physician Scientific Informatics Analyst Physician Scientific Informatics Analyst 11/25/20 Trauma Doctor Relationship Specialty Start Date End Date Ana Maria Baker MD [address] [place] [id number] Referring Internal Medicine 08/11/20 Trauma Doctor Relationship Specialty Start Date End Date Ana Maria Baker MD [address] [place] [id number] Referring Internal Medicine 08/11/20 Trauma Doctor Relationship Specialty Start Date End Date Ana Maria Baker MD [address] [place] [id number] Referring Internal Medicine 08/11/20 Trauma Doctor Relationship Specialty Start Date End Date Ana Maria Baker MD [address] [place] [address] Referring Internal Medicine 08/11/20 Team Status: Active Member Role Status Dates No Primary Care Physician Family Provider Active Daria GARRIDO MD Primary Care Provider Active Team Status: Inactive Member Role Status Dates Daria GARRIDO MD Primary Care Provider, Referr ing Provider Active Kartik Padgett PROGRAM SUPPORT CLERK, PROGRAM SUPPORT CLERK-C Attending Provider Active Team Status: Inactive Member Role Status Dates Daria GARRIDO MD Primary Care Provider Active Rboyn Warner PROGRAM SUPPORT CLERK, PROGRAM SUPPORT CLERK-C Attending Provider Active Team Status: Active Member Role Status Dates No Primary Care Physician Family Provider Active Kartik Padgett VSC, PROGRAM SUPPORT CLERK-C Primary Care Provider Active Team Status: Inactive Member Role Status Dates DALY Martinez Attending Provider, Referring Provi wali Active Kartik Padgett VSC, PROGRAM SUPPORT CLERK-C Primary Care Provider Active Team Status: Inactive Member Role Status Dates Robyn Warner NP, PROGRAM SUPPORT CLERK-C Attending Provider Active Dr. Daria Martines MD Primary Care Provider Active Team Status: Inactive Member Role Status Dates Kartik Padgett VSC, PROGRAM SUPPORT CLERK-C Primary Care Provider, Referring Provider Active Lucero KAUFFMAN PA Attending Provider Active Team Status: Inactive Member Role Status Dates Kartik Padgett VSC, PROGRAM SUPPORT CLERK-C Primary Care Provider Active Dr. Liliam Brian MD Emergency Provider Active Team Status: Active Member Role Status Dates No Primary Care Physician Family Provider Active Kartik Padgett PROGRAM SUPPORT CLERK, PROGRAM SUPPORT CLERK-C Primary Care Provider Active Team Status: Inactive Member Role Status Dates Kartik Padgett VSC, PROGRAM SUPPORT CLERK-C Primary Care Provider, Referring Provider Active Dr. Brenton Gifford MD Attending Provider Active Team Status: Inactive Member Role Status Dates Kartik Padgett VSC, PROGRAM SUPPORT CLERK-C Primary Care Provider Active Dr. Liliam Brian MD Attending Provider, Emergency Provider Active Team Status: Inactive Member Role Status Dates Dr. Brenton Gifford MD Attending Provider, Referring P rovider Active Kartik Padgett PROGRAM SUPPORT CLERK, PROGRAM SUPPORT CLERK-C Primary Care Provider Active Trauma Doctor Relationship Specialty Start Date End Date Kartik Padgett CNP [address] [place] [address] PCP - General Family Medicine 10/02/23 Ana [place] [address] Referring Internal Medicine 08/11/20 Team Status: Inactive Member Role Status Dates Jesus Manuel Burris , PROGRAM SUPPORT CLERK-C Attending Provider, Referring Provider Active Kartik Padgett [facility], PROGRAM SUPPORT CLERK-C Primary Care Provider Active Trauma Doctor Relationship Specialty Start Date End Date Kartik Padgett CNP [address] [place] [address] PCP - General Family Medicine 10/02/23 Ana [place] [address] Referring Internal Medicine 08/11/20 Trauma Doctor Relationship Specialty Start Date End Date Kartik Padgett CNP [address] [place] [address] PCP - General Family Medicine 10/02/23 Ana [place] [address] Referring Internal Medicine 08/11/20 Trauma Doctor Relationship Specialty Start Date End Date Kartik Padgett CNP [address] [place] [address] PCP - General Family Medicine 10/02/23 Ana [place] [address] Referring Internal Medicine 08/11/20 Trauma Doctor Relationship Specialty Start Date End Date Kartik Padgett CNP [address] [place] [address] PCP - General Family Medicine 10/02/23 Ana [place] [address] Referring Internal Medicine 08/11/20 Trauma Doctor Relationship Specialty Start Date End Date Kartik Padgett CNP [address] [place] [address] PCP - General Family Medicine 10/02/23 Ana [place] [address] Referring Internal Medicine 08/11/20 Trauma Doctor Relationship Specialty Start Date End Date Kartik Padgett CNP [address] [place] [address] PCP - General Family Medicine 10/02/23 Ana Maria Baker [place] [address] Referring Internal Medicine 08/11/20 Trauma Doctor Relationship Specialty Start Date End Date Kartik Padgett CNP [address] [place] [address] PCP - General Family Medicine 10/02/23 Ana [place] [address] Referring Internal Medicine 08/11/20 Trauma Doctor Relationship Specialty Start Date End Date Kartik Padgett CNP [address] [place] [address] PCP - General Family Medicine 10/02/23 Ana Maria Baker MD [address] [place] [address] Referring Internal Medicine 08/11/20 Trauma Doctor Relationship Specialty Start Date End Date Kartik Padgett CNP [address] [place] [address] PCP - General Family Medicine 10/02/23 Ana Maria Baker MD [address] [place] [address] Referring Internal Medicine 08/11/20 Trauma Doctor Relationship Specialty Start Date End Date Kartik Padgett CNP [address] [place] [address] PCP - General Family Medicine 10/02/23 Ana Maria Baker MD [address] [place] [address] Referring Internal Medicine 08/11/20 Trauma Doctor Relationship Specialty Start Date End Date Kartik Padgett CNP [address] [place] [address] PCP - General Family Medicine 10/02/23 Ana Maria Baker MD [address] [place] [address] Referring Internal Medicine 08/11/20 Trauma Doctor Relationship Specialty Start Date End Date Kartik Padgett CNP [address] [place] [address] PCP - General Family Medicine 10/02/23 Ana Maria Baker MD [address] [place] [address] Referring Internal Medicine 08/11/20 Team Status: Active Member Role Status Dates Kartik Padgett VSC, PROGRAM SUPPORT CLERK-C Primary Care Provider Active Team Status: Inactive Member Role Status Dates Kartik JAMESC, PROGRAM SUPPORT CLERK-C Primary Care Provider Active Start: June 10, 2024 End: June 10, 2024 Dr. Eulogio Mello DO Attending Provider Active Start: June 10, 2024 End: June 10, 2024 Dr. Eulogio Mello DO Referring Provider Active Start: June 10, 2024 End: June 10, 2024 Team Status: Active Member Role Status Dates Kartik RIDLEY, PROGRAM SUPPORT CLERK-C Primary Care Provider Active Start: June 10, 2024 Dr. Eulogio Mello DO Attending Provider Active Start: June 10, 2024 Dr. Eulogio Mello DO Referring Provider Active Start: June 10, 2024 Dr. Eulogio Mello DO Other Provider Active St art: June 10, 2024 Team Status: Inactive Member Role Status Dates Kartik RIDLEY, PROGRAM SUPPORT CLERK-C Primary Care Provider Active Start: August 04, 2024 End: August 04, 2024 Kartik RIDLEY, PROGRAM SUPPORT CLERK-C Referring Provider Active S tart: August 04, 2024 End: August 04, 2024 KYRA Ortiz Attending Provider Active Start: August 04, 2024 End: August 04, 2024 Team Status: Inactive Member Role Status Dates Kartik RIDLEY, PROGRAM SUPPORT CLERK-C Primary Care Provider Active Start: August 04, 2024 End: August 04, 2024 Dr. Dg Flores MD Attending Provider Active S tart: August 04, 2024 End: August 04, 2024 Team Status: Inactive Member Role Status Dates Kartik RIDLEY, PROGRAM SUPPORT CLERK-C Primary Care Provider Active Start: August 07, 2024 End: August 07, 2024 KYRA Ortiz Attending Provider Active Start: August 07, 2024 End: August 07, 2024 KYRA Ortiz Referring Provider Active Start: August 07, 2024 End: August 07, 2024 Team Status: Inactive Member Role Status Dates Kartik RIDLEY, PROGRAM SUPPORT CLERK-C Primary Care Provider Active Start: August 07, 2024 End: August 07, 2024 Kartik RIDLEY PROGRAM SUPPORT CLERK-C Referring Provider Active S tart: August 07, 2024 End: August 07, 2024 KYRA Ortiz Attending Provider Active Start: August 07, 2024 End: August 07, 2024 Trauma Doctor Relationship Specialty Start Date End Date Leroy Kartik ANM[address] [place] [address] PCP - General Family Medicine 10/02/23 Ana Maria Baker MD Referring Internal Medicine 08/11/20 Team Status: Active Member Role/Relationship Status Dates Kartik RIDLEY, PROGRAM SUPPORT CLERK-C Primary Care Provider Active Team Status: Inactive Member Role/Relationship Status Dates Kartik RIDLEY, PROGRAM SUPPORT CLERK-C Primary Care Provider Active Start: August 04, 2024 End: August 04, 2024 Kartik RIDLEY PROGRAM SUPPORT CLERK-C Referring Provider Active S tart: August 04, 2024 End: August 04, 2024 KYRA Ortiz Attending Provider Active Start: August 04, 2024 End: August 04, 2024 Team Status: Inactive Member Role/Relationship Status Dates Kartik RIDLEY PROGRAM SUPPORT CLERK-C Primary Care Provider Active Start: August 04, 2024 End: August 04, 2024 Dr. Dg Flores MD Attending Provider Active S tart: August 04, 2024 End: August 04, 2024 Team Status: Inactive Member Role/Relationship Status Dates Kartik RIDLEY PROGRAM SUPPORT CLERK-C Primary Care Provider Active Start: August 07, 2024 End: August 07, 2024 KYRA Ortiz Attending Provider Active Start: August 07, 2024 End: August 07, 2024 KYRA Ortiz Referring Provider Active Start: August 07, 2024 End: August 07, 2024 Team Status: Inactive Member Role/Relationship Status Dates Kratik RIDLEY PROGRAM SUPPORT CLERK-C Primary Care Provider Active Start: August 07, 2024 End: August 07, 2024 Kartik RIDLEY PROGRAM SUPPORT CLERK-C Referring Provider Active S tart: August 07, 2024 End: August 07, 2024 KYRA Ortiz Attending Provider Active Start: August 07, 2024 End: August 07, 2024 Team Status: Inactive Member Role/Relationship Status Dates Kartik Padgett KHAI, PROGRAM SUPPORT CLERK-C Primary Care Provider Active Start: September 26, 2024 End: September 26, 2024 Kartik Padgett KHAI, PROGRAM SUPPORT CLERK-C Referring Provider Active S tart: September 26, 2024 End: September 26, 2024 Dr. Eulogio Mello DO Attending Provider Active Start: September 26, 2024 End: September 26, 2024 Team Status: Inactive Member Role/Relationship Status Dates Kartik Padgett KHAI, PROGRAM SUPPORT CLERK-C Primary Care Provider Active Start: October 17, 2024 End: October 17, 2024 Dr. Daryl Peralta MD Attending Provider Active Start: October 17, 2024 End: October 17, 2024 Dr. Daryl Peralta MD Referring Provider Active Start: October 17, 2024 End: October 17, 2024 Trauma Doctor Relationship Specialty Start Date End Date Kartik Padgett CNP [address] [place] [address] PCP - General Family Medicine 10/02/23 Ana Maria Baker MD Referring Internal Medicine 08/11/20 Trauma Doctor Relationship Specialty Start Date End Date Kartik Padgett CNP [address] [place] [address] PCP - General Family Medicine 10/02/23 Ana Maria Baker MD Referring Internal Medicine 08/11/20 Source Comments (unrecognize d section and content) In the event this informatio n is protected by the Federal Confidentiality of Alcohol and Drug Abuse Patient Records regulations: The Federal rules restrict any use of the information to criminally investigate or prosecute any alcohol or drug abuse patient.[facility] the event this information is protected by the Federal Confidentiality of Alcohol and Drug Abuse Patient Records regulations: The Federal rules restrict any use of the information to criminally investigate or prosecute any alcohol or drug abuse patient.[facility] the event this information is protected by the Federal Confidentiality of Alcohol and Drug Abuse Patient Records regulations: The Federal rules restrict any use of the information to criminally investigate or prosecute any alcohol or drug abuse patient.[facility] the event this information is protected by the Federal Confidentiality of Alcohol and Drug Abuse Patient Records regulations: The Federal rules restrict any use of the information to criminally investigate or prosecute any alcohol or drug abuse patient.[facility] the event this information is protected by the Federal Confidentiality of Alcohol and Drug Abuse Patient Records regulations: The Federal rules restrict any use of the information to criminally investigate or prosecute any alcohol or drug abuse patient.[facility] the event this information is protected by the Federal Confidentiality of Alcohol and Drug Abuse Patient Records regulations: The Federal rules restrict any use of the information to criminally investigate or prosecute any alcohol or drug abuse patient.[facility] the event this information is protected by the Federal Confidentiality of Alcohol and Drug Abuse Patient Records regulations: The Federal rules restrict any use of the information to criminally investigate or prosecute any alcohol or drug abuse patient.[facility] the event this information is protected by the Federal Confidentiality of Alcohol and Drug Abuse Patient Records regulations: The Federal rules restrict any use of the information to criminally investigate or prosecute any alcohol or drug abuse patient.[facility] the event this information is protected by the Federal Confidentiality of Alcohol and Drug Abuse Patient Records regulations: The Federal rules restrict any use of the information to criminally investigate or prosecute any alcohol or drug abuse patient.[facility] the event this information is protected by the Federal Confidentiality of Alcohol and Drug Abuse Patient Records regulations: The Federal rules restrict any use of the information to criminally investigate or prosecute any alcohol or drug abuse patient.[facility] the event this information is protected by the Federal Confidentiality of Alcohol and Drug Abuse Patient Records regulations: The Federal rules restrict any use of the information to criminally investigate or prosecute any alcohol or drug abuse patient.[facility] the event this information is protected by the Federal Confidentiality of Alcohol and Drug Abuse Patient Records regulations: The Federal rules restrict any use of the information to criminally investigate or prosecute any alcohol or drug abuse patient.[facility] the event this information is protected by the Federal Confidentiality of Alcohol and Drug Abuse Patient Records regulations: The Federal rules restrict any use of the information to criminally investigate or prosecute any alcohol or drug abuse patient.[facility] the event this information is protected by the Federal Confidentiality of Alcohol and Drug Abuse Patient Records regulations: The Federal rules restrict any use of the information to criminally investigate or prosecute any alcohol or drug abuse patient.[facility] the event this information is protected by the Federal Confidentiality of Alcohol and Drug Abuse Patient Records regulations: The Federal rules restrict any use of the information to criminally investigate or prosecute any alcohol or drug abuse patient.[facility] the event this information is protected by the Federal Confidentiality of Alcohol and Drug Abuse Patient Records regulations: The Federal rules restrict any use of the information to criminally investigate or prosecute any alcohol or drug abuse patient.[facility] the event this information is protected by the Federal Confidentiality of Alcohol and Drug Abuse Patient Records regulations: The Federal rules restrict any use of the information to criminally investigate or prosecute any alcohol or drug abuse patient.[facility] the event this information is protected by the Federal Confidentiality of Alcohol and Drug Abuse Patient Records regulations: The Federal rules restrict any use of the information to criminally investigate or prosecute any alcohol or drug abuse patient.[facility] SystemIn the event this information is protected by the Federal Confidentiality of Alcohol and Drug Abuse Patient Records regulations: The Federal rules restrict any use of the information to criminally investigate or prosecute any alcohol or drug abuse patient.[facility] SystemIn the event this information is protected by the Federal Confidentiality of Alcohol and Drug Abuse Patient Records regulations: The Federal rules restrict any use of the information to criminally investigate or prosecute any alcohol or drug abuse patient.[facility] SystemIn the event this information is protected by the Federal Confidentiality of Alcohol and Drug Abuse Patient Records regulations: The Federal rules restrict any use of the information to criminally investigate or prosecute any alcohol or drug abuse patient.[facility] FOR RECORDS PERTAINING TO PATIENTS WHO ARE OR HAVE BEEN ENROLLED IN A CHEMICAL DEPENDENCY/SUBSTANCEABUSE PROGRAM, SOME INFORMATION MAY BE OMITTED. This clinical summary was aggregated from multiple sources. Caution should be exercised in using it in the provision of clinical care. This summary normalizes information from multiple sources, and as a consequence, information in this document may materially change the coding, format and clinical context of patient data. In addition, data may be omitted in some cases. CLINICAL DECISIONS SHOULD BE BASED ON THE PRIMARY CLINICAL RECORDS. [facility] [employer] provides no warranty or guarantee of the accuracy or completeness of information in this document.
[2024-12-30] MEDS: Lactated Ringers 1,000 ML 15 ML IV (06:33)
--- NOTE | 2024-12-30 07:04 | PCM.HP.BLA ---
History and Physical Date of Admission: 12/30/24 [facility] [address] [place] [address] OFFICE VISIT Date of Service: 09/26/24 MR#: [id number] Acct: [id number] Name: DO SANDERS Rep #: [id number] : 1980 Provider: Dr. Eulogio Mello DO Age/Sex: 44/F Location: [facility] [place] Status: Signed Intake Vital Signs 09/22/2510:14 Height 5 ft 7 in Intake Visit Reasons: LEFT WRIST Allergies amoxicillin Allergy (Verified 09/26/24 08:52) Rash Medications ?Medication ?Instructions ?Recorded ?Confirmed ?Type fexofenadine 180 mg tablet 180 mg PO DAILY PRN allergic 07/20/22 09/26/24 History (Melinda Allergy) symptoms fluoxetine 20 mg capsule See Rx Instructions .Route 01/30/23 09/26/24 Rx .COMPLEX #30 CAPSULES amoxicillin 500 mg tablet 500 mg PO TID #30 tabs 04/01/24 09/26/24 Rx collagen SUPPELEMENT 1 dose PO DAILY 05/20/24 09/26/24 History metformin 500 mg tablet,extended 500 mg PO BID 05/20/24 09/26/24 History release 24 hr phentermine 37.5 mg tablet 37.5 mg PO DAILY 05/20/24 09/26/24 History trazodone 50 mg tablet 50 mg PO QHS 05/20/24 09/26/24 History tirzepatide (weight loss) 15 15 mg subcut QWEEK 06/10/24 09/26/24 History mg/0.5 mL subcutaneous pen injector (Zepbound) ketorolac 10 mg tablet 10 mg PO Q8H #15 tabs 08/04/24 09/26/24 Rx cyclobenzaprine 10 mg tablet 10 mg PO TID PRN muscle spasm #30 08/07/24 09/26/24 Rx tabs PFSH Medical History Former smoker Wears glasses Accident in home Puncture wound of foot, left Obesity (BMI 30.0-34.9) Anxiety Surgical History History of breast augmentation History of wisdom tooth extraction History of hysterectomy H/O lumpectomy Family History Other Cervical cancer Heart disease Melanoma Mental disorder Myocardial infarction Ovarian cancer Social History (Updated 09/26/24 @ 08:55 by Leatha Cole) alcohol intake: current alcohol intake frequency: holidays/special occasions only substance use type: does not use HPI LEFT WRIST Details: This documentation accurately reflects the service provided and the decisions made by me, Dr. Eulogio Mello, DO 09/26/24 0743. Part of today?s visit was documented by Kenzie STEWART, acting as scribe. DO SANDERS is a 44 year old F here today for continued left carpal tunnel symptoms. To recall patient had Right open carpal tunnel release left carpal tunnel injection DOS 06/10/2024. She did have significant pain after the injection last time however after that her symptoms were doing very well until recently and now her symptoms are returned and significant .she would like an injection today in the eft wrist for the carpal tunnel. She does wish to have the left carpal tunnel released but she would like to wait until the fall. Her last carpal tunnel injection gave her relief up until 3-4 weeks ago. She has tried NSAIDs, bracing, and Voltaren gel with minimal relief. Ortho Exam General General: Yes no acute distress Neurologic: Yes alert and Yes oriented x3 Psychologic: Yes reasonable and appropriate Left Wrist/Hand Skin/Wound: Yes nail intact, No capillary refill normal and No erythema Left Wrist: Yes Tinel's and Yes Phalen's; No Thenar Atrophy and No Hypothenar Atrophy Sensation: Radial: I, Ulnar: I and Median: I WRIST: 75 extension, passive 82 49 flexion full supination and pronation 5/5 abbduction strngth She is not tender and there is no bogginess of her MCPs There is no swelling that I can appreciate in her fingers or hand Head: Normocephalic Atraumatic Chest: symmetrical rise, non-labored breathing, no audible wheeze Abdomen: no guarding, non-rigid Office Procedures Ortho Injections Injections Yes Carpal Tunnel Injection Left Is this a patient provided medication?: No Details: Obtained consent for injection. Under sterile conditions, injected the patients left wrist carpal tunnel with .5cc bupivacaine .5cc depo medrol. The patient tolerated the injection well without any noted complication. Patient should call our office if redness develops, pain worsens or if they have any concerns. Office Meds Depo-Medrol 40 mg/mL suspension for injection Performing Provider: Eulogio Mello DO Performing Location: [facility] Administered by: Eulogio Mello DO on 09/26/24 09:09 Dose Route Admin Location Dispensed Lot Number Expiration Date [facility] Animal Care Supervisor 20 mg intra-articular left wrist carpal tunnel 0.5 mL [id number] 12/26/25 2105-1253-[facility] Supplemental Info 06/10/2024: Right open carpal tunnel release left carpal tunnel injection 03/12/2024 EMG bilateral upper extremity: 1. Electrodiagnostic findings suggestive of bilateral median mononeuropathy. This is consistent with a mild to moderate bilateral carpal tunnel syndrome. 2. No electrodiagnostic evidence is noted for cervical radiculopathy. Coding Level of Care Code Off vis,est,level 3 Diagnoses Left carpal tunnel syndrome G56.02 CPT Codes exercise science instructor.[email or web address] ([id number]) Assessment and Plan Assessment and Plan (1) Left carpal tunnel syndrome: Status: Acute Orders: Orders Ortho Injections Today G56.03 - Carpal tunnel syndrome, bilateral upper limbs Plan Patient is here today for left carpal tunnel syndrome. She would like another injection today. Injection was given today without complication. I will give her some nerve glide exercises that she can try in the meantime as she would like to have her left carpal released in late fall. Follow up as needed or sooner if pain, swelling, numbness or associated symptoms, or concerns develop. All questions answered. Patient in agreement of plan. Plan Details Goals & Barriers: Goals Decrease pain Improve ROM Improve workability I have examined the patient the following changes are noted: Patient has previously underwent right carpal tunnel release and did well she has had similar symptoms and conservative treatment in the left hand and wishes to proceed with left open carpal tunnel release wrist benefits alternatives of the procedure were reviewed again with the patient including risk of bleeding infection nerve artery tissue damage need for further surgery continued pain incisional hypersensitivity and pillar pain and recurrence. 09/26/24 1008 <Electronically signed by Eulogio Borruso DO> Date Eulogio Mello DO
--- NOTE | 2024-12-30 07:14 | PCM.PRE.AN2 ---
ASA Classification* ASA Classification ASA Classification: 2 Assessment & Plan Anesthesia* Anesthesia Assessment Anesthesia Assessment: Discussed sedation and/or anesthesia options, risks, benefits, and alternatives with patient/parents/legal guardian/POA. Questions invited. The patient/parents/legal guardian/POA seems to understand and agrees to proceed with anesthesia plan. Reviewed the physical assessment, medical history, allergy history and patient home medications list prior to surgery/procedure/anesthetic and documented any changes. Performed airway and anesthesia risk assessments. Anesthesia Type Anesthesia Type: MAC History Source History Obtained from:: Patient and Chart Anesthesia Focused Assessment* Temperature: 97.6 F Pulse Rate: 74 Blood Pressure: 107/81 Respiratory Rate: 16 Pulse Ox: 99 Oxygen Delivery Method: Room Air Airway Assessment Mouth opens: >3 cm Mallampati Score: II Teeth Condition: Intact Neck Range of motion (ROM): Full ROM Labs Anesthesia Preop lab: CBC WBC 6.7 K/mm3 (4.4-11.0) 12/27/23 09:20 12/27/23 RBC 4.54 M/mm3 (4.2-5.4) 12/27/23 09:20 12/27/23 Hgb 13.2 g/dL (12.0-15.0) 12/27/23 09:20 12/27/23 Hct 40.4 % (37-47) 12/27/23 09:20 12/27/23 Plt Count 387 K/mm3 (150-450) 12/27/23 09:20 12/27/23 CHEMISTRY Potassium 3.9 mmol/L (3.5-5.1) 12/27/23 09:20 12/27/23 Sodium 135 mmol/L (136-145) L 12/27/23 09:20 12/27/23 BUN 13 mg/dL (7-18) 12/27/23 09:20 12/27/23 Creatinine 0.76 mg/dL (0.55-1.02) 12/27/23 09:20 12/27/23 Glucose 89 mg/dL (74-106) 12/27/23 09:20 12/27/23 TSH 0.52 uIU/mL (0.358-3.74) 12/27/23 09:20 12/27/23 COAG PT 11.8 SECONDS (11.7-14.9) 05/07/17 15:43 05/07/17 Pre-Assessment Diagnosis/Proposed Procedure Planned Operative Procedure(s): (L) Left open Carpal Tunnel Release Anesthesia History 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 When Was Last Pacemaker Check QUESTION #4 FULL TEXT: You/Your Family Experience fever (hyperthermia) with Anesthesia Last Oral Intake Last Oral intake: Last Oral Intake NPO since 21:00 12/30/24 06:27 Meds taken in AM with sips of water? 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 Female Yes 12/16/24 09:30 HX of Motion Sickness No 12/16/24 09:30 HX of N/V After Surgery No 12/16/24 09:30 Non-Smoker Yes 12/16/24 09:30 Duration of Surgery greater No 12/16/24 09:30 than 60 minutes Number of Risk Factors 2 12/16/24 09:30 PONV Score Moderate Risk 12/16/24 09:30 Height & Weight Height & Weight: Anesthesia: Height & Weight Height 5 ft 7 in 12/30/24 06:27 Weight: 78.5 kg 12/30/24 06:27 Body Mass Index (BMI) 27.1 12/30/24 06:27 Respiratory Assessment Respiratory Assessment - fish cutting machine operator: Respiratory Tract Infection Hx - fish cutting machine operator Hx Respiratory Tract Infection No 12/16/24 09:30 STOP Sleep Apnea STOP Sleep Apnea - fish cutting machine operator: STOP Sleep Apnea - fish cutting machine operator Hx Hypertension No 12/16/24 09:30 Hx Sleep Apnea No 12/16/24 09:30 CPAP BIPAP Do you snore loudly (louder No 12/16/24 09:30 than talking or can be heard Do you often feel tired/ No 12/16/24 09:30 fatigued/ sleepy during daytime? Has anyone observed you stop No 12/16/24 09:30 breathing during sleep? STOP Results Negative 12/16/24 09:30 QUESTION #5 FULL TEXT : Do you snore loudly (louder than talking or can be heard through closed doors)? 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 Specify any problems Hx of Preganancy in last 3 No 12/16/24 09:30 Months Nurse Filling Out Transfusion VCHRISTIN 12/16/24 09:30 & Questions: Date: 12/16/24 12/16/24 09:30 Time: 09:31 12/16/24 09:30 Patient unable to answer at this time (ie. confused, unrespo /Reproduction History /Reproductive History - fish cutting machine operator: /Reproductive Hx- fish cutting machine operator Hx Now No 12/16/24 09:30 Gestational Age (in weeks): EDC: Hx Hx Para Hx Section SAB No 12/16/24 09:30 Active Medications Active Medications: Current Medications Generic Name Dose Route Start Last Admin Trade Name Freq PRN Reason Stop Dose Admin Cefazolin Sodium 2 gm/ Sodium 110 mls @ 200 mls/hr 12/30/24 07:30 Chloride IV 12/30/24 08:02 INTRAOP ONE Lactated Ringer's 1,000 mls @ 15 mls/hr 12/30/24 06:15 12/30/24 06:33 IV 15 mls/hr .Q48H TAMI Administration PFSH Medical History Former smoker Wears glasses Accident in home Puncture wound of foot, left Obesity (BMI 30.0-34.9) Anxiety Home Medications ?Medication ?Instructions ?Recorded ?Last Taken ?Type fexofenadine 180 mg tablet 180 mg PO DAILY PRN allergic 07/20/22 Unknown History (Melinda Allergy) symptoms fluoxetine 20 mg capsule See Rx Instructions .Route 01/30/23 06/02/24 Rx .COMPLEX #30 CAPSULES collagen SUPPELEMENT 1 dose PO DAILY 05/20/24 06/02/24 History metformin 500 mg tablet,extended 1,000 mg PO DAILY 05/20/24 06/02/24 History release 24 hr phentermine 37.5 mg tablet 37.5 mg PO DAILY 05/20/24 06/02/24 History trazodone 50 mg tablet 50 mg PO QHS 05/20/24 06/02/24 History vit no.95-ferrous 1 tab PO DAILY 12/16/24 Unknown History fumarate 28 mg-folic acid 800 mcg tablet () tirzepatide 7.5 mg/0.5 mL 7.5 mg subcut QWEEK 12/16/24 12/17/24 History subcutaneous pen injector (Mounjaro) Allergy/AdvReac Type Severity Reaction Status Date / Time amoxicillin Allergy Rash Verified 12/30/24 06:26 Family History Other Cervical cancer Heart disease Melanoma Mental disorder Myocardial infarction Ovarian cancer Surgical History (Updated 12/16/24 @ 09:29 by Mary Garcia) History of carpal tunnel surgery of right wrist Hx of surgical procedure History of breast augmentation History of wisdom tooth extraction History of hysterectomy H/O lumpectomy Social History (Updated 09/26/24 @ 08:55 by Leatha Cole) Smoking Status: Former smoker alcohol intake: current alcohol intake frequency: holidays/special occasions only substance use type: does not use Review of Systems (Anesthesia) ROS Narrative System reviewed and no additional complaints, except as documented.
[2024-12-30] MEDS: Cefazolin 1 GM/5 ML Vial 2 GM IV (07:26)
[2024-12-30] MEDS: Lactated Ringers 1,000 ML 1000 ML IV (07:27)
[2024-12-30] MEDS: Midazolam 2 MG/2 ML Syringe IV (07:28)
[2024-12-30] MEDS: fentaNYL 100 MCG/2 ML Ampul 50 MCG IV (07:33)
[2024-12-30] MEDS: Bupiv/Epi 0.25% 30 ML Vial (07:40)
--- NOTE | 2024-12-30 07:59 | PCM.OPRPT ---
Operative Report (Standard) Operative Information Date of Procedure: 12/30/24 Pre-Operative Diagnosis: Left carpal tunnel syndrome Post-Operative Diagnosis: Same Surgery/Procedure Performed: Left open carpal tunnel release sales and merchandising associate: Yes Chief Credit Officer: Sukhdeep Addison Tasks completed by recruitment assistant: Opening & closing and Retracting Type of Anesthesia: Local and MAC RN Documented Start/Stop Times: Operation Date: 12/30/24 07:30 Case Time Into Pre-Op 12/30/24 06:02 Out of Pre-Op 12/30/24 07:21 Anesthesia Start 12/30/24 07:25 Into Room 12/30/24 07:25 Procedure Start 12/30/24 07:38 Procedure End 12/30/24 07:54 Anesthesia End 12/30/24 07:55 Out of Room 12/30/24 07:55 Procedure Start Time: 07:38 Procedure Stop Time: 07:54 Select all DRAINS/GRAFTS/IMPLANTS that apply: None Estimated Blood Loss: 0 Specimen collected: No Description of surgery: Preoperative diagnosis; left carpal tunnel syndrome Postoperative diagnosis; same Procedure: Left open carpal tunnel release Anesthesia: Local with MAC Tourniquet time; 10 minutes 250 mm Hg Complications: None Indication for procedure; This is a 44-year-old female with long-standing symptoms consistent with carpal tunnel syndrome the patient did have electrodiagnostic evidence of this and has failed conservative treatment. Risks benefits and alternatives were reviewed including risks of bleeding infection nerve artery tissue damage need for further surgery and continued pain and symptoms, hypersensitivity to scar and Pillar pain. Procedure; The patient was met in the preoperative holding area the operative extremity was identified by both patient and physician and was marked the patient was met by anesthesia and brought back to the operating room and transferred to the operating table in the supine position. Anesthesia was started. A well-padded tourniquet was placed on the operative upper extremity. The patient was prepped and draped in the usual sterile fashion. A timeout was called to ensure the proper patient procedure and extremity were being contemplated. 0.5 percent lidocaine with epinephrine was injected into the incisional area. An Esmarch was used to exsanguinate the extremity. The tourniquet was inflated to 250 mmHg. A midline incision was made with a 15 blade scalpel between the thenar and hypothenar eminence. This was carried down through the skin and subcutaneous tissue. Loretta retractors were then used, a deep blade scalpel was used to make a deep incision in the palmar aponeurosis. The loretta retractors were then placed deep to this and the transverse carpal ligament was identified a perforation was made with a scalpel and a Littler scissors were used to complete the release of the transverse carpal ligament distally under direct visualization with the tips facing ulnarly until the perivascular fat was reached. Then turning our attention proximally using a tension slide technique the proximal extent of the transverse carpal ligament was released . There was noted to be significant hypertrophy of the transverse carpal ligament. The wound was thoroughly irrigated and was closed with 4-0 nylon vertical mattress stitches. Dressing was applied in the form of xeroform 4 x 4, web roll and an chelsi wrap. Tourniquet was let down there is no intraoperative complications patient tolerated the procedure well and was transferred to the PACU. All counts were correct. Surgical Findings: Hypertrophy of transverse carpal ligament Complications Complications: No
--- NOTE | 2024-12-30 08:00 | PCM.POST.ANE ---
Anesthesia: Postop Eval I Current Vital Signs Temperature: 97.2 F Pulse Rate: 75 Blood Pressure: 113/76 Respiratory Rate: 16 Pulse Ox: 96 Oxygen Delivery Method: Room Air Assessment Airway patent: Yes Spontaneous unlabored respirations: Yes Mental status: Awake and Calm nausea: No Vomiting: No Anesthesia Complication: No Fluid Hydration Crystalloid volume administer (ml): 500 Total IV fluid infused: 500 Progress Note Anesthesia document: Postop Eval 1 completed: Yes
--- NOTE | 2024-12-30 08:01 | EX.PCM.DISCH ---
Discharge Instructions Diet Discharge Diet: No restrictions Dressing / Incision Call your doctor if you observe: Shortness of breath and Chest pain Additional Dressing/Incision Instructions:: Ice and elevate operative extremity next 72 hours. Keep dressing on clean and dry for 48 hours then may remove and allow warm soapy water to rinse over incision but do not submerge until sutures are out. Then apply bandaid over incision and change daily. encourage finger range of motion. Not lift more than 1/2 pound. Minimize narcotic use only as needed and directed, may use OTC NSAID and Tylenol to supplement/substitute for pain control. Follow Up Care Please Follow Up With: Eulogio Mello DO When: 2 weeks Test Results: Test results from this visit will be discussed in further detail at your follow-up appointment, if applicable. Discharge Plan Admission Primary Reason for Your Visit: Left carpal tunnel release Attending Provider: Eulogio Mello Primary Care Provider: Yonathan Harper Instructions Print Language: Belarusian Discharge Orders/Prescriptions Prescriptions: New hydrocodone-acetaminophen 5-325 mg tablet 1 - 2 tab PO Q4H PRN (Reason: pain) 3 Days Qty: 7 0RF Continued fexofenadine [Melinda Allergy] 180 mg tablet 180 mg PO DAILY PRN (Reason: allergic symptoms) phentermine 37.5 mg tablet 37.5 mg PO DAILY metformin 500 mg tablet extended release 24 hr 1,000 mg PO DAILY Patient Comments: FOR WEIGHT LOSS collagen SUPPELEMENT 1 dose PO DAILY trazodone 50 mg tablet 50 mg PO QHS PNV cmb#[id number]-ferrous fumarate-FA [] 28 mg iron- 800 mcg tablet 1 tab PO DAILY Mounjaro 7.5 mg/0.5 mL pen injector 7.5 mg subcut QWEEK Patient Comments: TAKES ON FRIDAYS LAST DOSE 12/19/24 FOR WEIGHT LOSS fluoxetine 20 mg capsule See Rx Instructions .ROUTE .COMPLEX Qty: 30 0RF Dose Instruction: TAKE 1 CAPSULE BY MOUTH DAILY Rx Instructions: TAKE 1 CAPSULE BY MOUTH DAILY Referrals / Follow Up: Yonathan Harper, DENTAL ASSISTANT INSTRUCTOR-C [Primary Care Provider] - Disposition Disposition (needs filled in before D/C Order can be placed): Home, Self Care
--- NOTE | 2024-12-30 20:18 | POSTOPAN2_ITS ---
Anesthesia Postop Eval I Sum Postop Eval Completion status Anesthesia document: Postop Eval 1 completed: Yes Anesthesia Postop Eval I Summary Anesthesia Postop Eval I Summary: Anesthesia Postop Eval I: Assessment Summary Airway patent Yes 12/30/24 08:02 INSULATION INSTALLER.RALF Spontaneous unlabored Yes 12/30/24 08:02 INSULATION INSTALLER.RALF respirations Mental status Awake,Calm 12/30/24 08:02 INSULATION INSTALLER.RALF nausea No 12/30/24 08:02 INSULATION INSTALLER.RALF Vomiting No 12/30/24 08:02 INSULATION INSTALLER.RALF Anesthesia Postop Eval I: Fluid Summary Crystalloid volume administer 500 12/30/24 08:02 INSULATION INSTALLER.EVERETTAN (ml) Colloids volume administered ( ml) Blood Product volume administered (ml) Total IV fluid infused 500 12/30/24 08:02 INSULATION INSTALLER.RALF Anesthesia Postop Eval I: Summary Notes Anesthesia Complication No 12/30/24 08:02 INSULATION INSTALLER.RALF Anesthesia Complication Comment: Post-operative progress note Anesthesia: Postop Eval II Evaluation Mental status: Awake and Calm Pain Level: 1 nausea: No Vomiting: No Complications Anesthesia Complication: No
--- NOTE | 2024-12-30 20:18 | PCM.POSTANE2 ---
Anesthesia Postop Eval I Sum Postop Eval Completion status Anesthesia document: Postop Eval 1 completed: Yes Anesthesia Postop Eval I Summary Anesthesia Postop Eval I Summary: Anesthesia Postop Eval I: Assessment Summary Airway patent Yes 12/30/24 08:02 SUPERVISOR ABATTOIR.RALF Spontaneous unlabored Yes 12/30/24 08:02 SUPERVISOR ABATTOIR.RALF respirations Mental status Awake,Calm 12/30/24 08:02 SUPERVISOR ABATTOIR.RALF nausea No 12/30/24 08:02 SUPERVISOR ABATTOIR.RALF Vomiting No 12/30/24 08:02 SUPERVISOR ABATTOIR.RALF Anesthesia Postop Eval I: Fluid Summary Crystalloid volume administer 500 12/30/24 08:02 SUPERVISOR ABATTOIR.EVERETTAN (ml) Colloids volume administered ( ml) Blood Product volume administered (ml) Total IV fluid infused 500 12/30/24 08:02 SUPERVISOR ABATTOIR.RALF Anesthesia Postop Eval I: Summary Notes Anesthesia Complication No 12/30/24 08:02 SUPERVISOR ABATTOIR.RALF Anesthesia Complication Comment: Post-operative progress note Anesthesia: Postop Eval II Evaluation Mental status: Awake and Calm Pain Level: 1 nausea: No Vomiting: No Complications Anesthesia Complication: No
== END 2024-12-30 08:54 | disposition home or self-care (01) ==
LOC: SDC 05:59 → AC 06:01
PROVIDERS: PCP Nurse Practitioner Family; Referring Provider Orthopaedic Surgery; Visit Provider Orthopaedic Surgery
PROC: (CPT 64721; principal; 2024-12-30 07:15)
DX: G56.02 Carpal tunnel syndrome, left upper limb (principal); Z87.891 Personal history of nicotine dependence; Z90.710 Acquired absence of both cervix and uterus
CPT/HCPCS: 64721; 01810

== ENCOUNTER → 2024-12-30 | Outpatient (CLI) | payer OTHER, SELFPAY ==
--- OUTSIDE RECORDS SUMMARY | 2024-12-30 06:15 | XMS RPT_ITS | CCD ---
Author Organization [facility] Care Team Providers Care Stereotype Molder Name Role Phone Anselmo Rossi Unavailable Spring, Cathy Shields Admitting Unavailable Spring, Cathy Shields Attending Unavailable Spring, Cathy Shields Primary Care Unavailable ACSO Consulting Unavailable Olivia, Ana Maria Primary Care Provider [phone] Olivia, Ana Maria Unavailable OLIVIA ANA MARIA [...] Olivia Ana Maria LAU Primary Care Provider [phone] Ana Maria Baker MD Unavailable Sherry Bagley [...] Unavailable OLIVIA, ANA MARIA Primary Care Unavailable Olivia , Ana Maria Primary Care Provider Olivia [...] Daria Cummings Referring Provider Unav ailable Leroy BAG SORTER, BAG SORTER-C Kartik Attending Provider Padgett VSC, BAG SORTER-C Kartik Primary Care Provider Padgett VSC, BAG SORTER-C Kartik Referring Provider DALY Santiago Attending Provider Dr. Brenton Gifford Attending Provider Padgett PICK AND SHOVEL WORKER, Kartik Primary Care Provider Padgett BAG SORTER-C, Kartik Primary Care Provider Funmilayo AGUIRRE, Dr. Krishnan Attending Provider Funmilayo AGUIRRE, Dr. Krishnan Referring Provider Funmilayo AGUIRRE, Dr. Krishnan Other Provider Padgett BAG SORTER-C, Kartik Referring Provider Liu BAG SORTER-C, Brooke Attending Provider Mark LAU, Dr. Conte Attending Provider Liu BAG SORTER-C, Brooke Referring Provider Olivia LAU, Ana Maria Unavailable Unavailable Padgett BAG SORTER-C, Kartik Primary Care Provider Funmilayo AGUIRRE, Dr. [...] sources) Amoxicillin; Translations: [AMOXICILLIN] Drug Allergy 04-09-2024 [facility] (1 source) Amoxicillin Drug Allergy 12-16-2024 [facility] Repository Medications Current Medications Medication Drug Class(es) [...] conjunction with the immunization order to satisfy [place] Board [place] Pharmacy Positive ID requirements for [...] gadoterate meglumine (DOTAREM) injection 17 mL Lacto No.44-Fnzfej-Ece-La rch (Women's Probiotic) 25B cell-25B cell-50 mg capsule (10 sources) Start: 11-29-2021 End: 05-20-2024 Lacto No.78-Yrdyss-Lsq-La rch (Women's Probiotic) 25B cell-25B cell-50 mg capsule Discontinued NMA PO November 29, 2021 12:00am May 20, 2024 11:29am Start: 11-29-2021 Lacto No.76-Bi cwwj-Aot-Cadcj (Women's Probiotic) 25B cell-25B cell-50 mg capsule [...] current use of drug therapy; Translations: [Other fpc (current) drug therapy] 12-19-2024 Episodic Other aftercare (1 source) Other fpc (current) drug therapy; Translations: [Encounter for long-term [...] Test Name Value Interpretation Reference Range Facility [facility] 12-19-2024 CNOV Office Visit (OBGYWM ) TOMMYDO Adalberto ([id number]) 1980 F Date Time Provider Department 12/19/24 7:00 AM ROBYN WARNER During your visit today, we recorded the following information about you: Pulse Blood pressure Weight 92/minute 108/76 73.5 kg Robyn Warner APRN.[facility] 12/19/2024 7:45 AM Addendum -- Metformin [...] protein AND 2g carb Two Good Lowfat Liberian Yogurt, Lower Sugar - 12g protein AND [...] oz is 28 gm protein Beef, Chicken, [place], Pork, Eli 1 oz 7g Fish, Tuna [...] a meal replacement) ___ Protein AND carbs Beef/[place] Jerky 1 oz dried 10-15g protein - [...] 8 oz -13g protein AND 6g carb Liberian yogurt Full Fat Liberian Yogurt 1 cup - 20.4g protein AND 9.1g carb 2% Liberian Yogurt 1 cup - 22.7g protein AND 9.1g carb 0% (fat-free) Liberian Yogurt - 1 cup 24g protein AND 9.3g carb Aldi Protein Liberian yogurt single svg - 13/g15g protein AND 7g carb Chobani Zero Sugar single svg: - 12g protein AND 5g carb Dannon Liberian Light + Fit 1 single svg - 12g protein AND 9g carb Oikos Pro single svg - 20g protein AND 8g carb Oikos Triple Zero Liberian Nonfat Yogurt 1 single svg - 15g protein AND 7g carb :ratio, KETO Friendly Dairy Snack 1 single svg - 15g protein AND 2g carb :ratio Protein 1 single svg - 25g protein AND 8g carb Two Good Lowfat Liberian Yogurt, [place], Lower Sugar - 12g protein AND 2g carb Yoplait Protein 1 single svg 15g protein AND 5g carb Dairy Free - [place] unsweetened Liberian almond/soy 15g protein AND 3g carb Dairy Free - True Goodness [employer] coconut-based yogurt alternative 1 g protein 1 g net carb 180 phil Drinkable yogurts: Chobani drinkable 15g, 20g and 30g protein AND 18 carb (too (more content not included)... Normal [facility] Orthopedic Visit Reporton Orthopedic Visit Report [facility] [address] [place] [address] OFFICE VISIT Date of Service: 09/26/24 MR#: [id number] Acct: [id number] Name: DO OLSON Rep #: [id number] : 1980 Provider: Dr. Eulogio Denny so, DO Age/Sex: 44/F Location: [facility].LINDA Status: Signed Intake Vital Signs 09/22/24 11:14 [...] Performing Provider: Eulogio Mello DO Performing Location: [facility] Administered by: Eulogio Mello DO on 09/26/24 09:09 Dose Route Admin Location Dispensed Lot Number Expiration Date NDC Man ufacturer 20 mg intra-articular left wrist carpal tunnel 0.5 mL [id number] 12/26/25 0009 -0280-03 RUY-UPMario Supplemental Info 06/10/2024: Right open carpal tunnel release left carpal tunnel injection 03/12/2024 EMG bilateral upper extremity: 1. Electrodiagnostic findings suggestive of bilateral median mononeuropathy. This is consistent with a mild to mod (more content not included)... Normal [facility] CNOVon 09-25-2024 CNOV Office Visit (OBGYWM ) DO OLSON Adalberto ([id number]) 1980 F Date Time Provider Department 09/25/24 3:30 PM ROBYN WARNER During your visit today, we recorded the following information about you: Pulse Blood pressure Weight 65/minute 116/76 73.5 kg Robyn Warner APRN.PICK AND SHOVEL WORKER 09/25/2024 4:47 PM Signed Some documentation from [...] and granola S - none D - 0489-4529 protein and veg and small carb - potato/pasta/corn/rice No dessert S - rare - popcorn or ice cream Fluids: water Bedtime - 0749-8941 Eating Disorder binge eating Dietary changes: B [...] - E (more content not included)... Normal [facility] Inital Evaluation (1) - PTon 08-29-2024 Inital Evaluation (1) - PT [facility] Physical Therapy [facility] [address] [place] [address] [address] [place] [id number] / REHABILITATION SERVICES INITIAL EVALUATION MR#: [id number] Acct: [id number] Name: DO OLSON Rep #: [id number] : 1980 44 From: Harrison Smith PT, ATC Referring Dr.: Dr. Daryl Peralta MD Status: REG RCR Insurance: [employer] SELF PAY INSURANCE Patient's Visit Information Visit [...] to be FAXED BACK to us at [phone] for Medicare purposes. For Medicare only, by signing this I certify the plan of care. Please let me know if there are questions or concerns regarding this plan of care. Physician Signature: Date: 08/29/24 9347 CC: KYRA Padgett; Dr. Daryl Peralta MD [facility] Signed Normal [facility] Lower Ext/No Jt/w/oon 2024 Lower Ext/No Jt/w/o [facility] Imaging Services [address] [place] [id number] Lower Ext/No Jt/w/o MR#: [id number] Acct: [id number] Name: DO OLSON Rep #: [id number] : 1980 F 44 From: Fausto Glover PCP: KYRA Riddle Status: REG CLI Study: Lower Ext/No Jt/w/o Date of Exam: 08/07/24 Exam# [id number] Ordering Dr: Brooke Liu PROCEDURE: LOWER EXT/NO [...] moderate amount of associated hematoma. Reading Location: [id number] CC: KYRA Padgett; KYRA Liu Film Inspector: Signed Normal [facility] Magnetic resonance imaging r eportOrdered By: Fausto Garcia on 08-07-2024 Study report [facility] Imaging Services [address] [place] [address] Lower Ext/No Jt/w/o MR#: [id number] Acct: [id number] Name: DO OLSON Rep #: [id number] : 1980 F 44 From: Leodan Garcia MD PCP: KYRA Riddle Status: REG CLI Study:Lower Ext/No Jt/w/o Date of Exam: 08/07/24 Exam# [id number] Ordering Dr: Sophie Liu PROCEDURE: LOWER EXT/NO [...] moderate amount of associated hematoma. Reading Location: [id number] CC: KYRA Padgett; KYRA Liu ~ Film Inspector: Signed [facility] Orthopedic Visit Reporton Orthopedic Visit Report [facility] [address] [place] [address] [place] [address] OFFICE VISIT Date of Service: 08/07/24 MR#: [id number] Acct: [id number] Name: DO OLSON Rep #: [id number] : 1980 Provider: KYRA perdomo Age/Sex: 44/F Location: [facility].BOSV Status: Signed Intake Vital Signs 06/10/24 06:13 08/07/24 15:20 Height 5 ft 7 in 5 ft 7 in Intake Visit Reasons: RIGHT LEG Chief Complaint: ST, TRUJILLO, cough, congestion Allergies amoxicillin Allergy (Verified 06/10/24 06:11) Rash [facility] Medical History Wears glasses Smoker Accident in [...] Crutches provi (more content not included)... Normal [facility] Femur Min 2 Viewson 08-05-19 25 Femur Min 2 Views [facility] Services [address] [place], [place] [id number] Femur Min 2 Views MR#: [id number] Acct: [id number] Name: DO OLSON Rep #: [id number] : 1980 F 44 From: Nnamdi Pagan MD PCP: KYRA Riddle Status: DEP AMB Study: Femur Min 2 Views Date of Exam: 08/04/24 Exam# [id number] Ordering Dr: Brooke Liu PROCEDURE: FEMUR MIN 2 VIEWS REASON FOR EXAM: Injury, pain TECHNIQUE: 2 view(s) of right femur, 4 total images COMPARISON: None. FINDINGS: RIGHT FEMUR: No fracture. No periosteal reaction identified. No osseous lesion seen. RAD/Femur Min 2 Views IMPRESSION: Study appears within limits. Reading Location: [id number] CC: KYRA Padgett; KYRA Liu Film Inspector: Signed Normal [facility] Orthopedic Visit Reporton Orthopedic Visit Report [facility] [address] [place] [address] OFFICE VISIT Date of Service: 08/04/24 MR#: [id number] Acct: [id number] Name: DO OLSON Rep #: [id number] : 1980 Provider: KYRA perdomo Age/Sex: 44/F Location: [facility].LINDA Status: Signed Intake Vital Signs 06/10/24 06:13 Height 5 ft 7 in Intake Visit Reasons: right hamstring Allergies amoxicillin Allergy (Verified 06/10/24 06:11) Rash [facility] Medical History Wears glasses Smoker Accident in [...] made by me, Brooke Liu NP-C 08/04/24 5400. Part of today???s visit was documented by [...] follow-up h (more content not included)... Normal [facility] Pelvis 1 or 2 Viewson 2024 Pelvis 1 or 2 Views [facility] Imaging Services [address] [place], [place] [address] Pelvis 1 or 2 Views MR#: [id number] Acct: [id number] Name: EMILY OLSONY KYA Rep #: [id number] : 1980 F 44 From: Nnamdi Pagan MD PCP: KYRA Riddle Status: DEP AMB Study: Pelvis 1 or 2 Views Date of Exam: 08/04/24 Exam# [id number] Ordering Dr: Brooke Liu PROCEDURE: PELVIS 1 OR 2 VIEWS REASON FOR EXAM: Pain, injury TECHNIQUE: 1 view(s) of the pelvis. COMPARISON: None FINDINGS: No fracture or dislocation. Symmetric appearing SI joints and pubic symphysis appear within limits. No osseous lesion identified. RAD/Pelvis 1 or 2 Views IMPRESSION: No fracture or dislocation. Reading Location: [id number] CC: KYRA Padgett; KYRA Liu Film Inspector: Signed Normal [facility] CNOVon 07-03-2024 CNOV Office Visit (OBGYWM ) DO OLSON ([id number]) 1980 F Date Time Provider Department 07/03/24 2:30 PM ROBYN WARNER OBERIC During your visit today, we recorded the following information about you: Pulse Blood pressure Weight 95/minute 113/77 71.7 kg Robyn Warner APRN.P[employer] AND SHOVEL WORKER 07/03/2024 8:40 PM Signed Some documentation from [...] and granola S - none D - 2956-3682 protein and veg and small carb - potato/pasta/corn/rice No dessert S - rare - popcorn or ice cream Fluids: water Bedtime - 6576-0991 Eating Disorder binge eating Dietary changes: B [...] LMP 02/25/2017 (more content not included)... Normal [facility] Discharge Instructionon 05-28 Discharge Instruction [facility] Medical Records Department [address] [place] [address] Instructions for Home/Discharge Instructions 06/10/24 0756 MR#: [id number] Acct: [id number] Name: DO OLSON Rep #: [id number] : 1980 43 From: Eulogio Mello DO PCP: Kartik Padgett BAG SORTER-C Status:REG [facility] Discharge Instructions Diet Discharge Diet: No restrictions [...] Eulogio Mello Primary Care Provider: Kartik Padgett [facility] Instructions Print Language: Estonian Discharge Orders/Prescriptions Prescriptions: New oxycodone 5 mg [...] DAILY Referrals / Follow Up: Kartik Padgett, BAG SORTER-C [Primary Care Provider] - Disposition Disposition (needs filled in before D/C Order can be placed): Home, Self Care 06/10/24 0757 Eulogio Mello DO CC: BAG SORTER-C Kartik Padgett Signed [facility] MR/POSTOP.ANEon 06-10-2024 MR/POSTOP.[facility] Medical Records Department [address] [place] [address] Anesthesia Postop Eval I 06/10/24 0803 MR#: [id number] Acct: [id number] Name: DO OLSON Rep #: [id number] : 1980 43 From: Nnamdi Gann CRNA PCP: KYRA Riddle Status:REG [facility] Y Race: C Location: [place] [address] Anesthesia: Postop Eval I Current Vital Signs [...] Gann CRNA Cosigner Signature: Date CC: Signed [facility] MR/NQAVLWRC7eg 06-10-2024 MR/POSTOPAN2 [facility] Medical Records Department [address] [place] [address] Anesthesia Postop Eval II 06/10/24 0858 MR#: [id number] Acct: [id number] Name: DO OLSON Rep #: [id number] : 1980 43 From: Victor Manuel Rosas MD PCP: Kartik Padgett, BAG SORTER-C Status:[facility] Y Race: C Location: [facility] Anesthesia Postop Eval I Sum Postop Eval Completion status Anesthesia document: Postop Eval 1 completed: Yes Anesthesia Postop Eval I Summary Anesthesia Postop Eval I Summary: Anesthesia Postop Eval I: Assessment Summary Airway patent Yes 06/10/24 08:04 RESEARCH BIOLOGIST.RWOO Spontaneous unlabored Yes 06/10/24 08:04 RESEARCH BIOLOGIST.RWOO respirations Mental status Awake,Calm 06/10/24 08:04 RESEARCH BIOLOGIST.RWOO nausea No 06/10/24 08:04 RESEARCH BIOLOGIST.RWOO Vomiting No 06/10/24 08:04 RESEARCH BIOLOGIST.RWOO Anesthesia Postop Eval I: Fluid Summary Crystalloid volume administer 10 06/10/24 08:04 RESEARCH BIOLOGIST.RWOO (ml) Colloids volume administered ( ml) Blood Product volume administered (ml) Total IV fluid infused 10 06/10/24 08:04 RESEARCH BIOLOGIST.RWOO Anesthesia Postop Eval I: Summary Notes Anesthesia Complication No 06/10/24 08:04 RESEARCH BIOLOGIST.RWOO Anesthesia Complication Comment: Post-operative progress note Anesthesia: Postop Eval II Evaluation Mental status: Awake and Calm Pain Level: 0 nausea: No Vomiting: No Complications Anesthesia Complication: No 06/10/2458 Date Victor Manuel Rosas MD Cosigner Signature: Date CC: Signed Normal [facility] Operative Reporton 5 Operative Report [facility] Medical Records Department [address] [place] [address] Operative Report 06/10/24 0754 MR#: [id number] Acct: [id number] Name: DO OLSON Rep #: [id number] : 1980 43 From: Eulogio Mello DO PCP: Kartik Padgett NP-C Status:REG [facility] Location: [address] Operative Report (Standard) Operative Information Date of Procedure: 06/10/24 Pre-Operative Diagnosis: Bilateral carpal tunnel syndrome Post-Operative Diagnosis: Same Surgery/Procedure Performed: Right open carpal tunnel release left carpal tunnel injection alternative energy engineer: Yes Rigging Slinger: Sukhdeep Addison Tasks completed by wet process assistant head miller: Opening closing Type of Anesthesia: Local and [...] 06/10/24 0756 Cosigner Signature (if applicable): CC: BAG SORTER-C Kartik Padgett; Dr. Eulogio Mello DO Signed [facility] MR/PAT.SARAHon 05-20-2024 MR/PAT.[facility] Medical Records Department [address] [place] [address] PAT - Anesthesia 05/20/24 1447 MR#: [id number] Acct: [id number] Name: DO OLSON Rep #: [id number] : 1980 43 From: Victor Manuel Rosas MD PCP: KYRA Riddle Status:PRE [facility] Y Race: C Location: [facility] Pre-Assessment Diagnosis/Proposed Procedure Planned Operative Procedure(s): RT open Carpal Tunnel Release, LT carpal tunnel injection Anesthesia History Anesthesia History - child care team lead: Anesthesia History - child care team lead Hx Hospitalization No 05/20/24 10:34 Any Problems [...] take am of surgery PONV PONV - child care team lead: PONV - child care team lead Female No 05/20/24 10:34 HX of Motion Sickness No 05/20/24 10:34 HX of N/V After Surgery No 05/20/24 10:34 Non-Smoker No 05/20/24 10:34 Duration of Surgery greater No 05/20/24 10:34 than 60 minutes Number of Risk Factors PONV Score Height Weight Height Weight: Anesthesia: Height Weight Height 5 ft 7 in 12/12/23 06:35 Respiratory Assessment Respiratory Assessment - child care team lead: Respiratory Tract Infection Hx - child care team lead Hx Respiratory Tract Infection No 05/20/24 10:34 STOP Sleep Apnea STOP Sleep Apnea - child care team lead: STOP Sleep Apnea - child care team lead Hx Hypertension No 05/20/24 10:34 Hx Sleep [...] Tobacco Use History Tobacco Use History - child care team lead: Tobacco Use History - child care team lead Tobacco Use Smoking Status Current every day smoker 05/20/24 10:34 Hx Tobacco Use Yes 05/20/24 10:34 Years Smoking Packs Smoked per Day Smoking Cessation Date was Yes - quit smoking within 15 05/20/24 10:34 within the last 15 years years Hx Smoking Cessation Date 05/28/19 05/20/24 10:34 Hx Smoking Cessation Counseling Hematologic Medial History Hematologic Hx - child care team lead: Hematologic Medical Hx - 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 Normal [facility] Urgent Care Visit Reporton 1 06-01-2023 Urgent Care Visit Report [facility] [address], [address] [place] [id number] OFFICE VISIT Date of Service: 04/01/24 MR#: [id number] Acct: [id number] Name: DO OLSON Rep #: [id number] : 1980 Provider: DALY Wetzel Age/Sex: 43/F Location: [facility] Status: Signed Intake Vital Signs 12/12/23 06:35 04/01/24 06:11 Height 5 ft 7 in BP 126/64 H Blood Pressure Location Lt brachial Position Sitting Respiration 15 Pulse 87 Pulse Source NIBP Temp 98.7 F Temp Source Oral Pulse Oximetry (%) 97 Oxygen Delivery Method room air Intake Visit Reasons: ST/TRUJILLO/CONGESTION Chief Complaint: ST, TRUJILLO, cough, congestion Factory Representative Required: No Is patient in pain?: Yes [...] sooner shou (more content not included)... Normal [facility] Orthopedic Visit Reporton Orthopedic Visit Report [facility] [address] [place] [address] OFFICE VISIT Date of Service: 03/14/24 MR#: [id number] Acct: [id number] Name: DO OLSON Rep #: [id number] : 1980 Provider: Dr. Eulogio peralta DO Age/Sex: 43/F Location: [facility].LINDA Status: Signed Intake Vital Signs 12/12/23 06:35 Height 5 ft 7 in Intake Visit Reasons: BL HANDS Accompanied by: Self Is patient in pain?: No Allergies No Known Allergies Allergy (Verified 03/14/24 09:19) Medications ???Medication ???Instructions ???Recorded ???Confirmed ???Type Lactobacillus 25 billion cap PO 11/29/21 03/14/24 History cell-Bifido 25 billion yoop-DDX-oinpk capsule (Women's Probiotic) fexofenadine 180 mg tablet [...] relieve a (more content not included)... Normal [facility] NCS and/or EMG Patienton NCS and/or EMG Patient [facility] Pulmonary Services/Neurology [address] [place] [address] MR#: [id number] Acct: [id number] Name: DO OLSON Rep #: [id number] : 1980 43 From: Jessica Sorenson MD [...] Multi Select Codes Neurology Neurology Interp Codes: 58608-72 Musc test done w/n test comp (interp) (2) and 81674-24 Nrv cndj test 13/> studies (interp) 03/12/24 1505 Date Jessica Sorenson MD CC: BAG SORTER-C Kartik Padgett; Dr. Jessica Sorenson MD; Dr. Eulogio Mello DO Date Dictated: 03/12/24 1502 Date Transcribed: 03/12/24 150 Film Inspector: AA Signed Normal [facility] Orthopedic Visit Reporton Orthopedic Visit Report [facility] [address] [place] [address] OFFICE VISIT Date of Service: 03/07/24 MR#: [id number] Acct: [id number] Name: DO OLSON Rep #: [id number] : 1980 Provider: Dr. Eulogio peralta DO Age/Sex: 43/F Location: [facility].LINDA Status: Signed Intake Vital Signs 12/12/23 06:35 [...] PO 11/29/21 03/07/24 History cell-Bifido 25 billion sacz-YVN-runkz capsule (Women's Probiotic) fexofenadine 180 mg tablet [...] decisions made by me, Dr. Eulogio Mello, 03/07/24 0844. Part of today???s visit [...] and wrist (more content not included)... 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 Physical Exam Constitutional: She appears healthy. No distress. Results: recent labs reviewed with the patient. Outside labs: 12/27/2023 [facility] CBC WNL (more content not included)... Normal [facility] CNCOon 02-05-2024 CNCO HNO ID: [id number] Author: COORDINATOR, MAMMOGRAPHY, ? Service: ? Author Type: Physician Type: Letter Filed: 02/05/2024 06:25 Note Text: February 06, 2024 PID: [id number] Do Olson [address] [place] [address] Dear Ms. Olson, We are pleased to [...] report will be kept on file at [facility] as part of your permanent medical record and are available for your continuing care. Thank you for allowing us to help in meeting your health care needs. Sincerely, Dr. Valdovinos Interpreting Radiologist [facility] (Normal over 40) Normal [facility] SCREENING W TOMOon 01-31 [facility] SCREENING W RJ * * *Final Report* * * DATE OF EXAM: Feb 01 2024 1:20PM [facility] 0582 - [facility] SCREENING W RJ / PROCEDURE REASON: Encounter for screening mammogram for malignant neoplasm of breast * * * * Physician Interpretation * * * * RESULT: #[id number] - [facility] SCREENING W RJ BILATERAL DIGITAL SCREENING MAMMOGRAM [...] made to exam dated: 08/13/2020 mammogram - [facility]. The breasts are heterogeneously dense, which may obscure small masses. Bilateral breast implants are stable. No significant masses, calcifications, or other findings are seen in either breast. There has been no significant interval change. IMPRESSION: NEGATIVE There is no mammographic evidence of malignancy. A 1 year screening mammogram is recommended. Arin Valdovinos M.D., jr/penkatherin:02/05/2024 06:25:39 Mandarin Teacher(s): Carolin Panda [facility] letter sent: Normal over 40 [...] Health, Family Medicine, and Medical/Surgical Oncology, the [facility] has carefully reviewed the data and reached [...] their providers when to stop screening mammograms. Film Inspector: Jacinda Transcribe Date/Time: Feb 01 2024 12:55P Dictated by: ARIN VALDOVINOS MD This examination was interpreted and the report reviewed and electronically signed by: ARIN VALDOVINOS MD on Feb 05 2024 6:25AM EST [id number] [facility] Tele[facility] (RDXWS) DO OLSON ([id number]) 1980 F Date Time Provider Department 01/21/24 [...] Date Reviewed: 12/26/2023 Reviewed by: Robyn Warner APRN.[employer]OV[employer] WORKER - Fully Assessed Reason for Visit: Orders [681] Primary Visit Diagnosis:Encounter for screening mammogram for malignant neoplasm of breast [Z12.31] Order(s):TAMIKO SCREENING W RJ [[id number]] Order #: [id number] FUTURE Prescriptions as of 01/21/2024 - topiramate [...] Status:Closed by LILIAM WONG on 01/21/24 Normal [facility] CBC-Complete Blood Cnt No Di ffon 12-27-2023 Erythrocyte distribution width (RBC) [Ratio] 12.3 % Normal 11.6-14.6 [facility] Comment on above: Performed By: #### L 500.4100, L501.9520, L100.0500, L500.4050, L501.9985 ####[facility] [address] [place], [address] Hematocrit (Bld) [Volume fraction] 40.4 % Normal 37-47 [facility] Comment on above: Performed By: #### L 500.4100, L501.9520, L100.0500, L500.4050, L501.9985 ####[facility] [address] [place], [address] Hemoglobin (Bld) [Mass/Vol] 13.2 g/dL Normal 12.0-15.0 [facility] Comment on above: Performed By: #### L 500.4100, L501.9520, L100.0500, L500.4050, L501.9985 ####[facility] [address] [place], [address] MCH (RBC) [Entitic mass] 29.1 pg Normal 27.0-32.0 [facility] Comment on above: Performed By: #### L 500.4100, L501.9520, L100.0500, L500.4050, L501.9985 ####[facility] [address] [place], [address] MCHC (RBC) [Mass/Vol] 32.7 g/dL Normal 32-36 [facility] Comment on above: Performed By: #### L 500.4100, L501.9520, L100.0500, L500.4050, L501.9985 ####[facility] [address] [place], [address] MCV (RBC) [Entitic vol] 89.0 fL Normal 81-99 [facility] Comment on above: Performed By: #### L 500.4100, L501.9520, L100.0500, L500.4050, L501.9985 ####[facility] [address] [place], [address] Platelet mean volume (Bld) [Entitic vol] 9.0 fL Normal 6.2-12.0 [facility] Comment on above: Performed By: #### L 500.4100, L501.9520, L100.0500, L500.4050, L501.9985 ####[facility] [address] [place], [address] Platelets (Bld) [#/Vol] 387 10*3/uL Normal 150-450 [facility] Comment on above: Performed By: #### L 500.4100, L501.9520, L100.0500, L500.4050, L501.9985 ####[facility] [address] [place], [address] RBC (Bld) [#/Vol] 4.54 10*6/uL Normal 4.2-5.4 [facility] Comment on above: Performed By: #### L 500.4100, L501.9520, L100.0500, L500.4050, L501.9985 ####[facility] [address] [place], [address] RDW SD 40.0 fl Normal 35.1-43.9 [facility] Comment on above: Performed By: #### L 500.4100, L501.9520, L100.0500, L500.4050, L501.9985 ####[facility] [address] [place], [address] WBC (Bld) [#/Vol] 6.7 10*3/uL Normal 4.4-11.0 [facility] Comment on above: Performed By: #### L 500.4100, L501.9520, L100.0500, L500.4050, L501.9985 ####[facility] [address] [place], [address] Comprehensive Metabolic Prof ilon 12-27-2023 Albumin [Mass/Vol] 3.9 g/dL Normal 3.2-5.0 [facility] Comment on above: Performed By: #### L 500.4100, L501.9520, L100.0500, L500.4050, L501.9985 ####[facility] [address] [place], [address] Albumin/Globulin [Mass ratio] 1.1 {ratio} Normal 0.9-2.4 [facility] Comment on above: Performed By: #### L 500.4100, L501.9520, L100.0500, L500.4050, L501.9985 ####[facility] [address] [place], [address] ALK P 79 U/L Normal 45-117 [facility] Comment on above: Performed By: #### L 500.4100, L501.9520, L100.0500, L500.4050, L501.9985 ####[facility] [address] [place], [address] ALT [Catalytic activity/Vol] 14 U/L Normal 13-56 [facility] Comment on above: Performed By: #### L 500.4100, L501.9520, L100.0500, L500.4050, L501.9985 ####[facility] [address] [place], [address] AST [Catalytic activity/Vol] 14 U/L Low 15-37 [facility] Comment on above: Performed By: #### L 500.4100, L501.9520, L100.0500, L500.4050, L501.9985 ####[facility] [address] [place], [address] Bilirubin [Mass/Vol] 0.40 mg/dL Normal 0.20-1.00 [facility] Comment on above: Result Comment: For patients on eltrombopag therapy, use of Dimension Candler TBIL is not recommended. Performed By: #### L 500.4100, L501.9520, L100.0500, L500.4050, L501.9985 ####[facility] [address] [place], [address] BUN/CRE 17.1 RATIO Normal 10-20 [facility] Comment on above: Performed By: #### L 500.4100, L501.9520, L100.0500, L500.4050, L501.9985 ####[facility] [address] [place], [address] CA,Total 8.8 mg/dL Normal 8.5-10.1 [facility] Comment on above: Performed By: #### L 500.4100, L501.9520, L100.0500, L500.4050, L501.9985 ####[facility] [address] [place], [address] Chloride [Moles/Vol] 103 mmol/L Normal 98-107 [facility] Comment on above: Performed By: #### L 500.4100, L501.9520, L100.0500, L500.4050, L501.9985 ####[facility] [address] [place], [address] CO2 [Moles/Vol] 27.0 mmol/L Normal 21.0-32.0 [facility] Comment on above: Performed By: #### L 500.4100, L501.9520, L100.0500, L500.4050, L501.9985 ####[facility] [address] [place], [address] Creatinine [Mass/Vol] 0.76 mg/dL Normal 0.55-1.02 [facility] Comment on above: Result Comment: The validity of the calculated GFR GFRAA in patients over 70 years has not been determined. Clinical correlation is essential. Performed By: #### L 500.4100, L501.9520, L100.0500, L500.4050, L501.9985 ####[facility] [address] [place], [address] EST GFR - AA 107 mL/min Normal >60 [facility] Comment on above: Result Comment: Afri can Filipino GFR Calc Performed By: #### L 500.4100, L501.9520, L100.0500, L500.4050, L501.9985 ####[facility] [address] [place], [address] GAP 5 Normal 5-15 [facility] Comment on above: Performed By: #### L 500.4100, L501.9520, L100.0500, L500.4050, L501.9985 ####[facility] [address] [place], [address] GFR/1.73 sq M.predicted among non-blacks MDRD (S/P/Bld) [Vol rate/Area] 88 mL/min/{1.73_m2} Normal >60 [facility] Comment on above: Result Comment: Non- GFR Calc Performed By: #### L 500.4100, L501.9520, L100.0500, L500.4050, L501.9985 ####[facility] [address] [place], [address] Globulin (S) [Mass/Vol] 3.6 g/dL Normal 2.2-4.2 [facility] Comment on above: Performed By: #### L 500.4100, L501.9520, L100.0500, L500.4050, L501.9985 ####[facility] [address] [place], [address] Glucose [Mass/Vol] 89 mg/dL Normal 74-106 [facility] Comment on above: Performed By: #### L 500.4100, L501.9520, L100.0500, L500.4050, L501.9985 ####[facility] [address] [place], [address] Potassium [Moles/Vol] 3.9 mmol/L Normal 3.5-5.1 [facility] Comment on above: Performed By: #### L 500.4100, L501.9520, L100.0500, L500.4050, L501.9985 ####[facility] [address] [place], [address] Sodium [Moles/Vol] 135 mmol/L Low 136-145 [facility] Comment on above: Performed By: #### L 500.4100, L501.9520, L100.0500, L500.4050, L501.9985 ####[facility] [address] [place], [address] T PROT 7.5 g/dL Normal 6.4-8.2 [facility] Comment on above: Performed By: #### L 500.4100, L501.9520, L100.0500, L500.4050, L501.9985 ####[facility] [address] [place], [address] Urea nitrogen [Mass/Vol] 13 mg/dL Normal 7-18 [facility] Comment on above: Performed By: #### L 500.4100, L501.9520, L100.0500, L500.4050, L501.9985 ####[facility] [address] [place], [address] Hemoglobin A1con 12-27-2023 HbA1c (Bld) [Mass fraction] 5.0 % Normal 3.8-5.6 [facility] Comment on above: Result Comment: Norm al < 5.7 % Prediabetic 5.7 - 6.4 % Diabetic >or= 6.5 % Please note range changes. Performed By: #### L 500.4100, L501.9520, L100.0500, L500.4050, L501.9985 ####[facility] [address] [place], [address] Lipid Profileon 12-27-2023 Cholesterol [Mass/Vol] 159 mg/dL Normal 200 [facility] Comment on above: Result Comment: <200 mg/dL Desirable 200-240 mg/dL Borderline >240 mg/dL High Risk Performed By: #### L 500.4100, L501.9520, L100.0500, L500.4050, L501.9985 ####[facility] [address] [place], [address] Cholesterol in HDL [Mass/Vol] 75 mg/dL Normal [facility] Comment on above: Result Comment: The drugs N-Acetylcysteine and Metamizole may falsely depress this assay. Reference Range HDL <40 mg/dL Low HDL Cholesterol HDL >or= 60 mg/dL High HDL Cholesterol Performed By: #### L 500.4100, L501.9520, L100.0500, L500.4050, L501.9985 ####[facility] [address] [place], [address] Cholesterol in LDL [Mass/Vol] 74 mg/dL Normal 0-130 [facility] Comment on above: Performed By: #### L 500.4100, L501.9520, L100.0500, L500.4050, L501.9985 ####[facility] [address] [place], [place], [address] Cholesterol in VLDL [Mass/Vol] 10 mg/dL Normal 5-40 [facility] Comment on above: Performed By: #### L 500.4100, L501.9520, L100.0500, L500.4050, L501.9985 ####[facility] [address] [place], [place], [id number] Triglyceride [Mass/Vol] 50 mg/dL Normal [facility] Comment on above: Result Comment: The drugs N-Acetylcysteine and Metamizole may falsely depress this assay. Serum Triglycerides Reference Interval Normal <150 mg/dL Borderline high 150 - 199 mg/dL High 200 - 499 mg/dL Very High > or = 500 mg/dL Performed By: #### L 500.4100, L501.9520, L100.0500, L500.4050, L501.9985 ####[facility] [address] [place], [place], [address] Thyroid Stim Hormone (TSH)on 12-27-2023 TSH 0.52 uIU/mL Normal 0.358-3.74 [facility] Comment on above: Performed By: #### L 500.4100, L501.9520, L100.0500, L500.4050, L501.9985 ####[facility] [address] [place], [place], [id number] CNOVon 12-26-2023 CNOV Office Visit (GROVER ) DO OLSON ([id number]) 1980 F Date Time Provider Department 12/26/23 [...] slots. This should not be done on [employer] as you will not be scheduled appropriately and will need to be rescheduled. We appreciate that you have entrusted us with your health and know that we are committed to this process with you. Sincerely, Evelin Rm MD, SAMUEL GEE AND Robyn Warner, ANMOL Advanced Education from the [employer]esity [employer] Obesity Obesity is a disease that affects nearly one-third of the adult [place] population (approximately 60 million). The number of overweight and obese Americans has continued to increase since 1960, a trend that is not slowing down. Today, 64.5 percent of adult Americans (about 127 million) are categorized as being overweight or obese. Each year, obesity causes at least 300,000 excess deaths in the [place] and healthcare costs of [place] adults with obesity amount to approximately $100 billion. (AOA) Obesity is a complex, multi-factorial ch (more content not included)... Normal [facility] percentageOrdered B y: Jesus Manuel Burris on 09-26-2023 Testosterone [Mass/Vol] 3 ng/dL 4-50 [facility] Free testosterone percentage Ordered By: Jesus Manuel Burris on 09-26-2023 Testosterone Free/Testosterone.tota l [Mass fraction] 1.53 % 0.50-2.80 [facility] No Panel InformationOrdered By: Jesus Manuel Burris on 09-26-2023 Estradiol (E2) Level 72.9 pg/mL [facility] Comment on above: NORMAL REFERENCE RAN [...] ESTRADIOL CONCENTRATION. Follicle Stimulating Hormone 4.8 mIU/mL [facility] Comment on above: NORMAL REFERENCE RAN GES FEMALE FOLLICULAR 2.3 - 12.6 mIU/mL MID-CYCLE PEAK 5.2 - 17.5 mIU/mL LUTEAL 1.7 - 12.9 mIU/mL POST-MENOPAUSAL ON MHT 5.9 - 72.8 mIU/mL NOT ON MHT 12.7 - 132.2 mlU/mL MALE 0.7 - 10.8 mIU/mL Luteinizing Hormone 4.0 mIU/mL [facility] Comment on above: NORMAL REFERENCE RAN GES FEMALE FOLLICULAR 1.9 - 26.2 mIU/mL MID-CYCLE PEAK 22.8 - 76.1 mIU/mL LUTEAL 0.6 - 16.6 mIU/mL POST-MENOPAUSAL ON MHT 1.1 - 52.4 mIU/mL NOT ON MHT 8.6 - 61.8 mIU/mL MALE 1.2 - 10.6 mIU/mL Serum or plasma progesterone measurement (mass/volume)Ordered By: Jesus Manuel Burris on 09-26-2023 Progesterone [Mass/Vol] 8.61 ng/mL See Comment [facility] Comment on above: Progesterone Referen ce Table: [...] hormone binding globulin [Moles/Vol] 93.1 nmol/L 24.6-122.0 [facility] Comment on above: Performed at: [employer] [facility] [address] [id number] Director: Jordan Duncan PhD, Phone: [phone] at: [facility] [address] [id number] Director: Daisha Fatima MD, Phone: [phone] Serum or plasma testosterone free measurement (mass/volume)Ordered By: Jesus Manuel Burris on 09-26-2023 Testosterone Free [Mass/Vol] 0.05 ng/dL 0.10-0.85 [facility] Whole blood hemoglobin A1c/t otal hemoglobin ratio (mass fraction)Ordered By: Jesus Manuel Burris on 09-26-2023 HbA1c (Bld) [Mass fraction] 5.0 % 3.8-5.6 [facility] Comment on above: Normal < 5.7 % Predi abetic 5.7 - 6.4 % Diabetic >or= 6.5 % Please note range changes. Anaerobic cultureOrdered By: Brenton Gifford on 03-19-2023 Bacteria identified Anaer cx Nom (Unsp spec) No growth in 5 days. [facility] Bacteria identified Cx Nom ( Wound)Ordered By: Brenton Gifford on 03-19-2023 Wound Culture Streptococcus parasanguinis [facility] Gram stain for investigation of transfusion reactionOrdered By: Brenton Gifford on 03-19-2023 Microscopic observation Gram stain Nom (Unsp spec) [facility] Absolute lymphocyte countOrd ered By: Kartik Padgett on 02-12-2023 Lymphocytes Auto (Unsp spec) [#/Vol] 1.93 10*3/uL 0.83-4.51 [facility] Basophil percentageOrdered B y: Kartik Leroy on 02-12-2023 Basophils/100 WBC (Bld) 0.9 % 0-1 [facility] Bilirubin [Mass/Vol] 0.40 mg/dL 0.20-1.00 [facility] Comment on above: For patients on eltr ombopag therapy, use of Dimension Candler TBIL is not recommended. Chloride [Moles/Vol] 109 mmol/L 98-107 [facility] Cholesterol [Mass/Vol] 191 mg/dL <200 [facility] Comment on above: <200 mg/dL Desirable 200-240 mg/dL Borderline >240 mg/dL High Risk Eosinophils/100 WBC (Bld) 2.4 % 0-5 [facility] Glucose [Mass/Vol] 83 mg/dL 74-106 [facility] Neutrophils (Bld) [#/Vol] 3.2 10*3/uL 2.0-7.7 [facility] Neutrophils/100 WBC (Bld) 55.0 % 47-70 [facility] Potassium [Moles/Vol] 3.7 mmol/L 3.5-5.1 [facility] Protein [Mass/Vol] 7.4 g/dL 6.4-8.2 [facility] Sodium [Moles/Vol] 140 mmol/L 136-145 [facility] Triglyceride [Mass/Vol] 62 mg/dL <199 [facility] Comment on above: The drugs N-Acetylcy steine and Metamizole may falsely depress this assay.Serum Triglycerides Reference Interval Normal <150 mg/dL Borderline high 150 - 199 mg/dL High 200 - 499 mg/dL Very High > or = 500 mg/dL WBC (Bld) [#/Vol] 5.8 10*3/uL 4.4-11.0 [facility] Blood erythrocytes count (nu mber/volume)Ordered By: Kartik Padgett on 02-12-2023 RBC (Bld) [#/Vol] 4.44 10*6/uL 4.2-5.4 [facility] Blood hemoglobin measurement (mass/volume)Ordered By: Kartik Padgett on 02-12-2023 Hemoglobin (Bld) [Mass/Vol] 13.2 g/dL 12.0-15.0 [facility] Blood lymphocytes/100 leukoc ytesOrdered By: Kartik Padgett on 02-12-2023 Lymphocytes/100 WBC (Bld) 33.5 % 19-41 [facility] Blood monocytes/100 leukocyt esOrdered By: Kartik Padgett on 02-12-2023 Monocytes/100 WBC (Bld) 8.0 % 0-10 [facility] Blood platelet mean volumeOr dered By: Kartik Padgett on 02-12-2023 Platelet mean volume (Bld) [Entitic vol] 9.1 fL 6.2-12.0 [facility] Determination of erythrocyte mean corpuscular volume (MCV)Ordered By: Kartik Padgett on 02-12-2023 MCV (RBC) [Entitic vol] 89.9 fL 81-99 [facility] Hematocrit Auto (Bld) [Volum e fraction]Ordered By: Kartik Padgett on 02-12-2023 Hematocrit (Bld) [Volume fraction] 39.9 % 37-47 [facility] Laboratory - Chemistry and C hemistry - challengeOrdered By: Kartik Padgett on 02-12-2023 ALP [Catalytic activity/Vol] 69 U/L 45-117 [facility] ALT [Catalytic activity/Vol] 19 U/L 13-56 [facility] CO2 [Moles/Vol] 30.0 mmol/L 21.0-32.0 [facility] Cobalamin (Vitamin B12) [Mass/Vol] 662 pg/mL 211-911 [facility] Globulin (S) [Mass/Vol] 3.3 g/dL 2.2-4.2 [facility] Urea nitrogen/Creatinine [Mass ratio] 18.9 mg/mg 10-20 [facility] Laboratory - Hematology and Cell countsOrdered By: Kartik Padgett on 02-12-2023 Erythrocyte distribution width (RBC) [Entitic vol] 39.4 fL 35.1-43.9 [facility] Erythrocyte distribution width (RBC) [Ratio] 12.0 % 11.6-14.6 [facility] Immature granulocytes/100 WBC (Bld) 0.200 % 0.0-0.9 [facility] Comment on above: IG% - Immature Granu locytes (promyelocytes, myelocytes and metamyelocytes) > 1% indicates that a LEFT SHIFT is Present. MCH (RBC) [Entitic mass] 29.7 pg 27.0-32.0 [facility] Nucleated RBC/100 WBC (Bld) [Ratio] 0 % 0-5 [facility] MCHC Auto (RBC) [Mass/Vol]Or dered By: Kartik Padgett on 02-12-2023 MCHC (RBC) [Mass/Vol] 33.1 g/dL 32-36 [facility] No Panel InformationOrdered By: Kartik Padgett on 02-12-2023 Estimated GFR (MDRD) Amer 102 mL/min >60 [facility] Comment on above: GFR Calc Estimated GFR (MDRD) Non-Af Amer 84 mL/min >60 [facility] Comment on above: Non- GFR Calc Thyroid Stimulating Hormone (TSH) 0.88 uIU/mL 0.358-3.74 [facility] Vitamin D 25-Hydroxy 37.1 ng/mL [facility] Comment on above: Vitamin D 25(OH) Sta tus Range Deficiency <20 ng/mL (50nmol/L) Insufficiency 20 - 30 ng/mL (50 - 75 nmol/L) Sufficiency 30 - 100 ng/mL (75 - 250 nmol/L) Toxicity >100 ng/mL (>250 nmol/L) Platelets bldOrdered By: Riana Padgett on 02-12-2023 Platelets (Bld) [#/Vol] 317 10*3/uL 150-450 [facility] Serum or plasma albumin tyrell urement (mass/volume)Ordered By: Kartik Padgett on 02-12-2023 Albumin [Mass/Vol] 4.1 g/dL 3.2-5.0 [facility] Serum or plasma albumin/glob ulin mass ratioOrdered By: Kartik Padgett on 02-12-2023 Albumin/Globulin [Mass ratio] 1.2 {ratio} 0.9-2.4 [facility] Serum or plasma calcium tyrell urement (mass/volume)Ordered By: Kartik Padgett on 02-12-2023 Calcium [Mass/Vol] 8.8 mg/dL 8.5-10.1 [facility] Serum or plasma cholesterol in HDL measurement (mass/volume)Ordered By: Kartik Padgett on 02-12-2023 Cholesterol in HDL [Mass/Vol] 64 mg/dL >40 [facility] Comment on above: The drugs N-Acetylcy steine and Metamizole may falsely depress this assay. Reference Range HDL <40 mg/dL Low HDL Cholesterol HDL >or= 60 mg/dL High HDL Cholesterol Serum or plasma cholesterol in VLDL measurement (mass/volume)Ordered By: Kartik Padgett on 02-12-2023 Cholesterol in VLDL [Mass/Vol] 12 mg/dL 5-40 [facility] Serum or plasma creatinine m easurement (mass/volume)Ordered By: Kartik Padgett on 02-12-2023 Creatinine [Mass/Vol] 0.79 mg/dL 0.55-1.02 [facility] Comment on above: The validity of the calculated GFR & GFRAA in patients over 70 years has not been determined. Clinical correlation is essential. Serum or plasma low density lipoprotein (LDL) cholesterol measurement (mass/volume)Ordered By: Kartik Padgett on 02-12-2023 Cholesterol in LDL [Mass/Vol] 115 mg/dL 0-130 [facility] Serum or plasma urea nitroge n measurement (mass/volume)Ordered By: Kartik Padgett on 02-12-2023 Urea nitrogen [Mass/Vol] 15 mg/dL 7-18 [facility] Thin prep Papanicolaou smear with manual screeningOrdered By: Kartik Padgett on 02-12-2023 Thin prep Papanicolaou smear with manual screening 11 U/L 15-37 [facility] Thin prep Papanicolaou smear with manual screening 1 5-15 [facility] Absolute lymphocyte counton 11-29-2021 Lymphocytes Auto (Unsp spec) [#/Vol] 1.85 10*3/uL 0.83-4.51 [facility] Work Phone: Basophil percentageon 2021 Basophils/100 WBC (Bld) 1.1 % 0-1 [facility] Work Phone: Bilirubin [Mass/Vol] 0.50 mg/dL 0.20-1.00 [facility] Work Phone: Comment on above: For patients on eltr ombopag therapy, use of Dimension Candler TBIL is not recommended. Chloride [Moles/Vol] 107 mmol/L 98-107 [facility] Work Phone: [phone] Cholesterol [Mass/Vol] 181 mg/dL <200 [facility] Work Phone: [phone] Comment on above: <200 mg/dL Desirable 200-240 mg/dL Borderline >240 mg/dL High Risk Eosinophils/100 WBC (Bld) 2.5 % 0-5 [facility] Work Phone: [phone] Glucose [Mass/Vol] 97 mg/dL 74-106 [facility] [facility] Work Phone: [phone] Neutrophils (Bld) [#/Vol] 3.2 10*3/uL 2.0-7.7 [facility] Work Phone: [phone] Neutrophils/100 WBC (Bld) 56.0 % 47-70 [facility] Work Phone: [phone] Potassium [Moles/Vol] 4.2 mmol/L 3.5-5.1 [facility]: Protein [Mass/Vol] 7.0 g/dL 6.4-8.2 [facility] Work Phone: [phone] Sodium [Moles/Vol] 139 mmol/L 136-145 [facility] Work Phone: Triglyceride [Mass/Vol] 79 mg/dL <199 [facility] Work Phone: Comment on above: The drugs N-Acetylcy steine and Metamizole may falsely depress this assay.Serum Triglycerides Reference Interval Normal <150 mg/dL Borderline high 150 - 199 mg/dL High 200 - 499 mg/dL Very High > or = 500 mg/dL WBC (Bld) [#/Vol] 5.7 10*3/uL 4.4-11.0 [facility] Work Phone: Blood erythrocytes count (nu mber/volume)on 11-29-2021 RBC (Bld) [#/Vol] 4.57 10*6/uL 4.2-5.4 [facility] Work Phone: Blood hemoglobin measurement (mass/volume)on 11-29-2021 Hemoglobin (Bld) [Mass/Vol] 13.4 g/dL 12.0-15.0 [facility] Work Phone: Blood lymphocytes/100 leukoc yteson 11-29-2021 Lymphocytes/100 WBC (Bld) 32.6 % 19-41 [facility] Work Phone: Blood monocytes/100 leukocyt eson 11-29-2021 Monocytes/100 WBC (Bld) 7.4 % 0-10 [facility] Work Phone: Blood platelet mean volumeon 11-29-2021 Platelet mean volume (Bld) [Entitic vol] 10.3 fL 6.2-12.0 [facility] Work Phone: Determination of erythrocyte mean corpuscular volume (MCV)on 11-29-2021 MCV (RBC) [Entitic vol] 91.5 fL 81-99 [facility] Work Phone: Hematocrit Auto (Bld) [Volum e fraction]on 11-29-2021 Hematocrit (Bld) [Volume fraction] 41.8 % 37-47 [facility] Work Phone: Laboratory - Chemistry and C hemistry - challengeon 11-29-2021 ALP [Catalytic activity/Vol] 66 U/L 45-117 [facility] Work Phone: ALT [Catalytic activity/Vol] 26 U/L 13-56 [facility] Work Phone: CO2 [Moles/Vol] 28.0 mmol/L 21.0-32.0 [facility] Work Phone: Globulin (S) [Mass/Vol] 3.2 g/dL 2.2-4.2 [facility] Work Phone: Urea nitrogen/Creatinine [Mass ratio] 14.8 mg/mg 10-20 [facility] Work Phone: Laboratory - Hematology and Cell countson 11-29-2021 Erythrocyte distribution width (RBC) [Entitic vol] 42.3 fL 35.1-43.9 [facility] Work Phone: Erythrocyte distribution width (RBC) [Ratio] 12.8 % 11.6-14.6 [facility] Work Phone: Immature granulocytes/100 WBC (Bld) 0.400 % 0.0-0.9 [facility] Work Phone: Comment on above: IG% - Immature Granu locytes (promyelocytes, myelocytes and metamyelocytes) > 1% indicates that a LEFT SHIFT is Present. MCH (RBC) [Entitic mass] 29.3 pg 27.0-32.0 [facility] Work Phone: Nucleated RBC/100 WBC (Bld) [Ratio] 0 % 0-5 [facility] Work Phone: MCHC Auto (RBC) [Mass/Vol]on 11-29-2021 MCHC (RBC) [Mass/Vol] 32.1 g/dL 32-36 [facility] Work Phone: No Panel Informationon 11-29 Estimated GFR (MDRD) Amer 100 mL/min >60 [facility] Work Phone: Comment on above: GFR Calc Estimated GFR (MDRD) Non-Af Amer 83 mL/min >60 [facility] Work Phone: Comment on above: Non- GFR Calc Platelets bldon 11-29-2021 Platelets (Bld) [#/Vol] 275 10*3/uL 150-450 [facility] Work Phone: Serum or plasma albumin tyrell urement (mass/volume)on 11-29-2021 Albumin [Mass/Vol] 3.8 g/dL 3.2-5.0 [facility] Work Phone: Serum or plasma albumin/glob ulin mass ratioon 11-29-2021 Albumin/Globulin [Mass ratio] 1.2 {ratio} 0.9-2.4 [facility] Work Phone: Serum or plasma calcium tyrell urement (mass/volume)on 11-29-2021 Calcium [Mass/Vol] 8.8 mg/dL 8.5-10.1 [facility] Work Phone: Serum or plasma cholesterol in HDL measurement (mass/volume)on 11-29-2021 Cholesterol in HDL [Mass/Vol] 71 mg/dL >40 [facility] Work Phone: Comment on above: The drugs N-Acetylcy steine and Metamizole may falsely depress this assay. Reference Range HDL <40 mg/dL Low HDL Cholesterol HDL >or= 60 mg/dL High HDL Cholesterol Serum or plasma cholesterol in VLDL measurement (mass/volume)on 11-29-2021 Cholesterol in VLDL [Mass/Vol] 16 mg/dL 5-40 [facility] Work Phone: Serum or plasma creatinine m easurement (mass/volume)on 11-29-2021 Creatinine [Mass/Vol] 0.81 mg/dL 0.55-1.02 [facility] Work Phone: Comment on above: The validity of the calculated GFR & GFRAA in patients over 70 years has not been determined. Clinical correlation is essential. Serum or plasma low density lipoprotein (LDL) cholesterol measurement (mass/volume)on 11-29-2021 Cholesterol in LDL [Mass/Vol] 94 mg/dL 0-130 [facility] Work Phone: Serum or plasma urea nitroge n measurement (mass/volume)on 11-29-2021 Urea nitrogen [Mass/Vol] 12 mg/dL 7-18 [facility] Work Phone: Thin prep Papanicolaou smear with manual screeningon 11-29-2021 Thin prep Papanicolaou smear with manual screening 16 U/L 15-37 [facility] Work Phone: Thin prep Papanicolaou smear with manual screening 4 5-15 [facility] Work Phone: Whole blood hemoglobin A1c/t otal hemoglobin ratio (mass fraction)on 11-29-2021 HbA1c (Bld) [Mass fraction] 5.4 % 3.8-5.6 [facility] Work Phone: Comment on above: Normal < 5.7 % Predi abetic 5.7 - 6.4 % Diabetic >or= 6.5 % Please note range changes. RUBEOon 02-23-2021 Rubeola IgG Ab Negative Normal [facility] ([place]) Comment on above: Result Comment: INTE RPRETATION OF RUBEOLA (MEASLES) IGG BY EIA: Negative Nonreactive (Negative) for anti-Rubeola IgG. Presumed non-immune to measles virus. Positive Reactive (Positive) for anti-Rubeola IgG. Presumed immune to measles virus. Equivocal Repeat testing if still indicated. Performed By: #### H BSAB, RUBIS, VARIS, RUBEO #### [place] [address] VARISon 02-22-[address] Positive Normal [facility] ([place]) Comment on above: Result Comment: This immune [...] #### H BSAB, RUBIS, VARIS, RUBEO #### [place] [address] RUBISon 02-19-[address] Positive Normal Positive [facility] ([place] Comment on above: Result Comment: This immune status assay detects IgM and/or IgG antibody to Rubella. Interpret results in conjunction with clinical history. POS: Antibody detected; exposure at undetermined recent or distant time. If clinically indicated, order Rubella IGM to rule out recent infection. NEG: No antibody detected. Performed By: #### H BSAB, RUBIS, VARIS, RUBEO #### [place] [address] HBSABon 02-18-2021 Hep B Surf Ab 12.4 mIU/mL Normal >=10.0 [facility] ([place]) Comment on above: Result Comment: 0 to [...] #### H DWAYNE FLOYD VARIS, RUBEO #### [address] [address] SARS-COV-2 ANTIBODY, IGGon 0 01-06-2021 SARS-CoV-2 (COVID-19) IgG IA.rapid Ql (S/P/Bld) Negative Normal Negative [facility] Comment on above: Result Comment: No S ARS-CoV-2 IgG antibodies detected. In infected individuals negative results may occur before IgG seroconversion, or in immunosuppressed patients. Negative results should not be used to exclude active or recent COVID-19. This test was performed under the FDA's Emergency Use Authorization (EUA). Testing was performed using the [employer] CLIA methodology. Fact sheets for this EUA can be found at the following links: For Healthcare Providers: https://www.fda.gov/media/712790/download For Patients: https://www.fda.gov/media/098829/download Performed By: #### 3 2001 #### [facility] [address] [place] [address] Eddi Griffin M.D. [id number] MM BREAST SPECIMENon 021 MM BREAST SPECIMEN [...] BIRADS: Code ZW - Awaiting further pathology. [facility]/jcw Workstation ID: [id number] Dictated by: TENA GAN on SunOctober 05, 2020 2:04:26 PM EDT Transcribed by: ANSELMO KIM on SunOctober 05, 2020 2:10:23 PM EDT Finalized by: TENA GAN on SunOctober 05, 2020 2:28:33 PM EDT Normal [facility] COVID-19, MOLECULARon 2020 SARS-CoV-2 (COVID-19) RNA GIOVANNY+probe Ql (Unsp spec) Not detected Normal Not Detected [facility] Comment on above: Order Comment: : COV [...] at the following links: For Healthcare Providers: https://www.fda.gov/media/648731/download For Patients: https://www.fda.gov/media/087238/download Performed By: #### L [id number] #### [facility] [address] [place] [address] Eddi Griffin M.D. [id number] MM FOLLOW UP POST CLIP PLACE MENTon [...] on SunAug 27, 2020 2:10:22 PM EDT [facility] 08-27-2020 1. Status post right breast biopsy with pathology pending. Workstation ID: [id number] [facility] EXAMINATION: US REUBEN ST RIGHT LIMITED; [...] to obscuration by implant. No immediate complication. [facility] Interface, Rad In Fu ji Speechq [...] biopsy with pathology pending. Workstation ID: [id number] [facility] US BREAST BIOPSY RIGHTon US BREAST [...] on SunAug 27, 2020 2:10:22 PM EDT [facility] Comment on above: Order Comment: Injur y/Trauma [...] SunAug 27, 2020 2:10:22 PM EDT Normal [facility] COMPARISON IMPORTon 08-25 This order has been auto-finalized and does not contain a result. [facility] US COMPARISON IMPORTon 08-25 This order has been auto-finalized and does not contain a result. [facility] MR BREAST BILATERAL WITH AND WITHOUT [...] KNOWN BIOPSY PROVEN MALIGNANCY. Workstation ID: [id number] [facility] EXAMINATION: MR BREAST BILATERAL WITH AND [...] Dotarem intravenously administered in a single dosage. Molecule Synth CAD utilized in the interpretation of this [...] along the internal mammary lymph node chains. [facility] Interface, Rad In Fu ji Speechq [...] KNOWN BIOPSY PROVEN MALIGNANCY. Workstation ID: [id number] [facility] MR BREAST BILATERAL WITH AND WITHOUT [...] SunAug 24, 2020 2:00:29 PM EDT Abnormal [facility] Comment on above: Order Comment: Injur y/Trauma or Illness?:Illness/Other How long have you had these symptoms (acute/chronic)?:Acute Reason for exam?:Abnormal Mammo @ [facility] x 1 week ago / was a routine scheduled exam not having any problems Type of Exam?:Initial Additional signs and symptoms?:na DIGITAL DIAG MAMM BILAT WITH TOMOon 08-19-2020 DIGITAL DIAG MAMM BILAT WITH RJ Patient Name: DO OLSON STUDY: Digital diagnostic mammogram bilateral with rj; 08/19/2020 9:05 am; 08/19/2020 8:55 am ACCESSION NUMBER(S): [id number]; [id number] ORDERING CLINICIAN: ANA MARIA BAKER INDICATION: Abnormal [...] Follow-up. Electronically signed by: ALEX VARGAS MD [facility] BREAST ULTRASOUNDon 08-19-2020 LIMITED BREAST ULTRASOUND Patient Name: DO OLSON STUDY: Digital diagnostic mammogram bilateral with rj; 08/19/2020 9:05 am; 08/19/2020 8:55 am ACCESSION NUMBER(S): [id number]; [id number] ORDERING CLINICIAN: ANA MARIA BAKER INDICATION: Abnormal [...] Electronically signed by: ALEX VARGAS MD Normal [facility] XR SHOULDER LEFT 2+ VIEWS (S TANDARD)on [...] SunJul 20, 2020 6:48:38 PM EST Normal [facility] Comment on above: Order Comment: Injur y/Trauma or Illness?:Illness/Other How long have you had these symptoms (acute/chronic)?:Acute Reason for exam?:no injury, left shoulder pain and difficulty abducting left arm. limited range of motion History of cancer?:u Surgeries, chemotherapy, or radiation?:u Type of Exam?:Initial Additional signs and symptoms?:no COVID-19, MOLECULARon 2020 SARS-CoV-2 (COVID-19) RNA GIOVANNY+probe Ql (Unsp spec) Not detected Normal Not Detected [facility] Comment on above: Order Comment: : Dipesh [...] at the following links: For Healthcare Providers: https://www.fda.gov/media/605806/download For Patients: https://www.fda.gov/media/650598/download Performed By: #### L [id number] #### [facility] [address] [place] [address] Eddi Griffin M.D. [id number] COVID-19, MOLECULARon 2019 SARS-CoV-2 (COVID-19) RNA GIOVANNY+probe Ql (Unsp spec) Not detected Normal Not Detected [facility] Comment on above: Result Comment: This test [...] at the following links: For Healthcare Providers: https://www.fda.gov/media/634895/download For Patients: https://www.fda.gov/media/447245/download Performed By: #### L [id number] #### [facility] [address] [place], [place] [id number] Eddi Griffin M.D. [id number] Free T4on 10-05-2017 T4 free mass conc 0.93 ng/dL Normal 0.58-1.64 [facility] Comment on above: Performed By: #### 2 [id number] #### [employer] [address] [place] [id number] TSHon 10-05-2017 Thyrotropin Qn 1.80 mIU/m Normal 0.30-5.60 [facility] Comment on above: Performed By: #### 2 [id number] #### [employer] [address] [place] [address] Vital Signs Date Time Vital Sign Value Performing Clinician Facility 12-19-2024 07:03-0400 Body mass index (BMI) [Ratio] 25.37 kg/m2 Robyn Warner APRN.[employer] Work Phone: [facility] 12-19-2024 07:03-0400 Body weight 73.48 kg Robyn Warner APRN.[employer] Work Phone: [facility] 12-19-2024 07:03-0400 Diastolic blood pressure 76 mm[Hg] Robyn Warner APRN.[employer] Work Phone: [facility] 12-19-2024 07:03-0400 Heart rate 92 /min Robyn Warner APRN.[employer] Work Phone: [facility] 12-19-2024 07:03-0400 SaO2% (BldA) [Mass fraction] 98 % Robyn Warner APRN.[employer] Work Phone: [facility] 12-19-2024 07:03-0400 Systolic blood pressure 108 mm[Hg] Robyn Warner APRN.[employer] Work Phone: [facility] 09-25-2024 15:24-0400 Body mass index (BMI) [Ratio] 25.37 kg/m2 Robyn Warner APRN.[employer] Work Phone: [facility] 09-25-2024 15:24-0400 Body weight 73.48 kg Robyn Warner APRN.[employer] Work Phone: [facility] 09-25-2024 15:24-0400 Diastolic blood pressure 76 mm[Hg] Robyn Warner APRN.[employer] Work Phone: [facility] 09-25-2024 15:24-0400 Heart rate 65 /min Robyn Warner APRN.[employer] Work Phone: [facility] 09-25-2024 15:24-0400 SaO2% (BldA) [Mass fraction] 100 % Robyn Warner APRN.[employer] Work Phone: [facility] 09-25-2024 15:24-0400 Systolic blood pressure 116 mm[Hg] Robyn Warner APRN.[employer] Work Phone: [facility] 08-07-2024 15:20-0400 Body height 170.18 cm Kartik Padgett NP-C Work Phone: [facility] 07-03-2024 14:37-0500 Body mass index (BMI) [Ratio] 24.75 kg/m2 Robyn Warner APRN.[employer] Work Phone: [facility] 07-03-2024 14:37-0500 Body weight 71.67 kg Robyn Warner APRN.[employer] Work Phone: [facility] 07-03-2024 14:37-0500 Diastolic blood pressure 77 mm[Hg] Robyn Warner APRN.[employer] Work Phone: [facility] 07-03-2024 14:37-0500 Heart rate 95 /min Robyn Warner APRN.[employer] Work Phone: [facility] 07-03-2024 14:37-0500 SaO2% (BldA) [Mass fraction] 100 % Robyn Warner APRN.[employer] Work Phone: [facility] 07-03-2024 14:37-0500 Systolic blood pressure 113 mm[Hg] Robyn Warner APRN.[employer] Work Phone: [facility] 06-10-2024 08:15-0500 Body temperature 97.2 [degF] Kartik Padgett BAG SORTER-C Work Phone: [facility] 06-10-2024 08:15-0500 Diastolic blood pressure 50 mm[Hg] Kartik Padgett NP-C Work Phone: [facility] 06-10-2024 08:15-0500 Heart rate 73 /min Kartik Padgett [employer]TER-C Work Phone: [facility] 06-10-2024 08:15-0500 Respiratory rate 16 /min Kartik Padgett [employer]-C Work Phone: [facility] 06-10-2024 08:15-0500 SaO2% (BldA) [Mass fraction] 100 % Kartik Padgett BAG [employer]TER-C Work Phone: [facility] 06-10-2024 08:15-0500 Systolic blood pressure 101 mm[Hg] Kartik Padgett BAG S[employer]TER-C Work Phone: [facility] 06-10-2024 06:13-0500 Body mass index (BMI) [Ratio] 25 kg/m2 Kartik Padgett [employer]-C Work Phone: [facility] 06-10-2024 06:13-0500 Body weight 72.3 kg Kartik Padgett [employer]-C Work Phone: [facility] 04-09-2024 11:47-0500 Body mass index (BMI) [Ratio] 24.43 kg/m2 Robyn Warner APRN.[employer] Work Phone: [facility] 04-09-2024 11:47-0500 Body weight 70.76 kg Robyn Warner APRN.[employer] Work Phone: [facility] 04-09-2024 11:47-0500 Diastolic blood pressure 76 mm[Hg] Robyn Warner APRN.[employer] Work Phone: [facility] 04-09-2024 11:47-0500 Heart rate 85 /min Robyn Warner APRN.[employer] Work Phone: [facility] 04-09-2024 11:47-0500 SaO2% (BldA) [Mass fraction] 97 % Robyn Warner APRN.[employer] Work Phone: [facility] 04-09-2024 11:47-0500 Systolic blood pressure 122 mm[Hg] Robyn Warner APRN.[employer] Work Phone: [facility] 02-13-2024 07:16-0400 Body mass index (BMI) [Ratio] 25.53 kg/m2 Robyn Warner APRN.[employer] Work Phone: [facility] 02-13-2024 07:16-0400 Body weight 73.94 kg Robyn Warner APRN.[employer] Work Phone: [facility] 02-13-2024 07:16-0400 Diastolic blood pressure 71 mm[Hg] Robyn Warner APRN.[employer] Work Phone: [facility] 02-13-2024 07:16-0400 Heart rate 92 /min Robyn Warner APRN.[employer] Work Phone: [facility] 02-13-2024 07:16-0400 Systolic blood pressure 110 mm[Hg] Robyn Warner APRN.[employer] Work Phone: [facility] 12-26-2023 06:58-0400 Body height 170.2 cm Robyn Warner APRN.[employer] Work Phone: [facility] 12-26-2023 06:58-0400 Body mass index (BMI) [Ratio] 25.18 kg/m2 Robyn Warner APRN.[employer] Work Phone: [facility] 12-26-2023 06:58-0400 Body weight 72.94 kg Robyn Warner APRN.[employer] Work Phone: [facility] 12-26-2023 06:58-0400 Diastolic blood pressure 62 mm[Hg] Robyn Warner APRN.[employer] Work Phone: [facility] 12-26-2023 06:58-0400 Heart rate 73 /min Robyn Warner APRN.[employer] Work Phone: [facility] 12-26-2023 06:58-0400 SaO2% (BldA) [Mass fraction] 99 % Robyn Warner APRN.[employer] Work Phone: [facility] 12-26-2023 06:58-0400 Systolic blood pressure 110 mm[Hg] Robyn Warner APRN.[employer] Work Phone: [facility] 11-23-2023 07:02-0400 Body height 170.2 cm Robyn Warner APRN.[employer] Work Phone: [facility] 11-23-2023 07:02-0400 Body mass index (BMI) [Ratio] 25.22 kg/m2 Robyn Warner APRN.[employer] Work Phone: [facility] 11-23-2023 07:02-0400 Body weight 73.03 kg Robyn Warner APRN.[employer] Work Phone: [facility] 11-23-2023 07:02-0400 Diastolic blood pressure 62 mm[Hg] Robyn Willoughbyhramalia TORRESN.[employer] Work Phone: [facility] 11-23-2023 07:02-0400 Systolic blood pressure 112 mm[Hg] Robyn Warner APRN.[employer] Work Phone: [facility] 10-02-2023 11:33-0400 Body mass index (BMI) [Ratio] 25.94 kg/m2 Robyn Warner LABORATORY TECHNOLOGIST.[employer] Work Phone: [facility] 10-02-2023 11:33-0400 Body weight 75.12 kg Robyn Warner APRN.[employer] Work Phone: [facility] 10-02-2023 11:33-0400 Diastolic blood pressure 64 mm[Hg] Robyn Warner LABORATORY TECHNOLOGIST.[employer] Work Phone: [facility] 10-02-2023 11:33-0400 Systolic blood pressure 100 mm[Hg] Robyn Willoughbyhrie LABORATORY TECHNOLOGIST.[employer] Work Phone: [facility] 03-19-2023 11:53-0400 Body mass index (BMI) [Ratio] 28 kg/m2 BAG SORTER-C Kartik Padgett [facility] Work Phone: [facility] 03-19-2023 11:53-0400 Body temperature 97.2 [degF] BAG S[employer]TER-C Kartik Padgett [facility] Work Phone: [facility] 03-19-2023 11:53-0400 Body weight 81.3 kg BAG SORTER-C Kartik Padgett [facility] Work Phone: 7(722)[phone] [place] [address] 03-19-2023 11:53-0400 Diastolic blood pressure 79 mm[Hg] BAG SORTER-C Kartik Padgett [facility] Work Phone: 6(092)915-492080 [place] [address] 03-19-2023 11:53-0400 Heart rate 81 /min [employer]C Kartik Padgett [facility] Work Phone: 1(054)069-378080 [place] [address] 03-19-2023 11:53-0400 Respiratory rate 16 /min [employer]C Kartik Padgett [facility] Work Phone: 8(393)[phone] [place] [address] 03-19-2023 11:53-0400 SaO2% (BldA) [Mass fraction] 98 % [employer]TER-C Kartik Padgett [facility] Work Phone: 6(082)[phone] [place] [address] 03-19-2023 11:53-0400 Systolic blood pressure 119 mm[Hg] BAG SORTER-C Kartik Padgett [facility] Work Phone: 2(196)030-515180 [place] [address] 03-18-2023 10:56-0400 Body height 170.18 cm [employer]-C Kartik Padgett [facility] Work Phone: 0(828)466-514580 [place] [address] 03-18-2023 10:56-0400 Body mass index (BMI) [Ratio] 27.3 kg/m2 [employer] Kartik Padgett [facility] Work Phone: 7(573)381-049380 [place] [address] 03-18-2023 10:56-0400 Body temperature 97 [degF] B[employer]TER-C Kartik Padgett [facility] Work Phone: 8(052)983-964680 [place] [address] 03-18-2023 10:56-0400 Body weight 79.37 kg [employer]TER-C Kartik Padgett [facility] Work Phone: 9(882)979-605880 [place] [address] 03-18-2023 10:56-0400 Diastolic blood pressure 89 mm[Hg] B[employer]-C Kartik Padgett [facility] Work Phone: 3(686)544-642280 [place] [address] 03-18-2023 10:56-0400 Heart rate 94 /min [employer] Kartik Padgett [facility] Work Phone: 2(917)[phone] [place] [address] 03-18-2023 10:56-0400 Respiratory rate 16 /min [employer]-C Kartik Padgett [facility] Work Phone: [facility] 03-18-2023 10:56-0400 SaO2% (BldA) [Mass fraction] 99 % BAG SORTER-C Kartik Padgett [facility] Work Phone: [facility] 03-18-2023 10:56-0400 Systolic blood pressure 131 mm[Hg] BAG SORTER-C Kartik Padgett [facility] Work Phone: [facility] 10-17-2022 15:33-0400 Body height 170.18 [facility] 10-17-2022 15:33-0400 Body mass index (BMI) [Ratio] 29 kg[facility]m2 [facility] 10-17-2022 15:33-0400 Body temperature 98.1 [degF] [facility] 10-17-2022 15:33-0400 Body weight 83.91 kg [facility] 10-17-2022 15:33-0400 Diastolic blood pressure 70 mm[Hg] [facility] 10-17-2022 15:33-0400 Heart rate 90 /min [facility] 10-17-2022 15:33-0400 Respiratory rate 16 /min [facility] 10-17-2022 15:33-0400 SaO2% (BldA) [Mass fraction] 96 % [facility] 10-17-2022 15:33-0400 Systolic blood pressure 90 mm[Hg] [facility] 05-03-2022 07:24-0500 Body weight 92.08 kg Robyn Warner APRN.[employer] Work Phone: [facility] 05-03-2022 07:24-0500 Diastolic blood pressure 72 mm[Hg] Robyn Warner APRN.[employer] Work Phone: [facility] 05-03-2022 07:24-0500 Systolic blood pressure 118 mm[Hg] Robyn Warner APRN.[employer] Work Phone: [facility] 04-18-2022 15:36-0500 Body height 170.2 cm Robyn Warner APRN.[employer] Work Phone: [facility] 04-18-2022 15:36-0500 Body weight 91.54 kg Robyn Warner APRN.[employer] Work Phone: [facility] 04-18-2022 15:36-0500 Diastolic blood pressure 70 mm[Hg] Robyn Warner APRN.[employer] Work Phone: [facility] 04-18-2022 15:36-0500 Systolic blood pressure 128 mm[Hg] Robyn Warner APRN.[employer] Work Phone: [facility] 02-11-2022 17:11-0400 Diastolic blood pressure 73 mm[Hg] No Primary Care Physician [facility] Work Phone: 02-11-2022 17:11-0400 Heart rate 74 /min No Primary Care Physician [facility] Work Phone: 02-11-2022 17:11-0400 Respiratory rate 17 /min No Primary Care Physician [facility] Work Phone: 02-11-2022 17:11-0400 SaO2% (BldA) [Mass fraction] 99 % No Primary Care Physician [facility] Work Phone: 02-11-2022 17:11-0400 Systolic blood pressure 98 mm[Hg] No Primary Care Physician [facility] Work Phone: 02-11-2022 15:12-0400 Body height 170.18 cm No Primary Care Physician [facility] Work Phone: 02-11-2022 15:12-0400 Body mass index (BMI) [Ratio] 29.7 kg/m2 No Primary Care Physician [facility] Work Phone: 02-11-2022 15:12-0400 Body temperature 97.3 [degF] No Primary Care Physician [facility] Work Phone: 02-11-2022 15:12-0400 Body weight 86.18 kg No Primary Care Physician [facility] Work Phone: 12-23-2021 08:07-0400 Body height 170.18 cm No Primary Care Physician [facility] Work Phone: 12-23-2021 08:07-0400 Body mass index (BMI) [Ratio] 30.2 kg/m2 No Primary Care Physician [facility] Work Phone: 12-23-2021 08:07-0400 Body weight 87.54 kg No Primary Care Physician [facility] Work Phone: 12-09-2021 09:29-0400 Body mass index (BMI) [Ratio] 30.2 kg/m2 No Primary Care Physician [facility] Work Phone: 12-09-2021 09:29-0400 Body temperature 96.3 [degF] No Primary Care Physician [facility] Work Phone: 12-09-2021 09:29-0400 Body weight 87.54 kg No Primary Care Physician [facility] Work Phone: 12-09-2021 09:29-0400 Diastolic blood pressure 60 mm[Hg] No Primary Care Physician [facility] Work Phone: 12-09-2021 09:29-0400 Heart rate 103 /min No Primary Care Physician [facility] Work Phone: 12-09-2021 09:29-0400 Respiratory rate 18 /min No Primary Care Physician [facility] Work Phone: 12-09-2021 09:29-0400 SaO2% (BldA) [Mass fraction] 99 % No Primary Care Physician [facility] Work Phone: 12-09-2021 09:29-0400 Systolic blood pressure 114 mm[Hg] No Primary Care Physician [facility] Work Phone: 11-29-2021 08:14-0400 Body height 170.18 cm No Primary Care Physician [facility] Work Phone: 11-29-2021 08:14-0400 Body mass index (BMI) [Ratio] 30.5 kg/m2 No Primary Care Physician [facility] Work Phone: 11-29-2021 08:14-0400 Body temperature 97.6 [degF] No Primary Care Physician [facility] Work Phone: 11-29-2021 08:14-0400 Body weight 88.45 kg No Primary Care Physician [facility] Work Phone: 11-29-2021 08:14-0400 Diastolic blood pressure 78 mm[Hg] No Primary Care Physician [facility] Work Phone: 11-29-2021 08:14-0400 Heart rate 83 /min No Primary Care Physician [facility] Work Phone: 11-29-2021 08:14-0400 Respiratory rate 14 /min No Primary Care Physician [facility] Work Phone: 11-29-2021 08:14-0400 SaO2% (BldA) [Mass fraction] 98 % No Primary Care Physician [facility] Work Phone: 11-29-2021 08:14-0400 Systolic blood pressure 130 mm[Hg] No Primary Care Physician [facility] Work Phone: 11-23-2021 14:46-0400 Body temperature 98 [degF] No Primary Care Physician [facility] Work Phone: 11-23-2021 14:46-0400 Diastolic blood pressure 80 mm[Hg] No Primary Care Physician [facility] Work Phone: 11-23-2021 14:46-0400 Heart rate 102 /min No Primary Care Physician [facility] Work Phone: 11-23-2021 14:46-0400 Respiratory rate 14 /min No Primary Care Physician [facility] Work Phone: 11-23-2021 14:46-0400 SaO2% (BldA) [Mass fraction] 98 % No Primary Care Physician [facility] Work Phone: 11-23-2021 14:46-0400 Systolic blood pressure 136 mm[Hg] No Primary Care Physician [facility] Work Phone: 08-04-2021 14:35-0500 Body mass index (BMI) [Ratio] 31.3 kg/m2 No Primary Care Physician [facility] Work Phone: 08-04-2021 14:35-0500 Body weight 90.71 kg No Primary Care Physician [facility] Work Phone: 08-04-2021 14:35-0500 Diastolic blood pressure 80 mm[Hg] No Primary Care Physician [facility] Work Phone: 08-04-2021 14:35-0500 Systolic blood pressure 108 mm[Hg] No Primary Care Physician [facility] Work Phone: 08-04-2021 13:35-0500 Body height 170.18 cm No Primary Care Physician [facility] Work Phone: 08-04-2021 13:35-0500 Body mass index (BMI) [Ratio] 31.3 kg/m2 No Primary Care Physician [facility] Work Phone: 08-04-2021 13:35-0500 Body weight 90.71 kg No Primary Care Physician [facility] Work Phone: 08-04-2021 13:35-0500 Diastolic blood pressure 80 mm[Hg] No Primary Care Physician [facility] Work Phone: 08-04-2021 13:35-0500 Systolic blood pressure 108 mm[Hg] No Primary Care Physician [facility] Work Phone: 07-28-2021 08:26-0500 Body mass index (BMI) [Ratio] 31.3 kg/m2 No Primary Care Physician [facility] Work Phone: 07-28-2021 08:26-0500 Body weight 90.71 kg No Primary Care Physician [facility] Work Phone: 09-21-2020 07:32-0400 Body height 170.2 cm Ana Maria Baker MD Work Phone: [facility] 09-21-2020 07:32-0400 Body mass index (BMI) [Ratio] 29.44 kg/m2 Ana Maria Baker MD Work Phone: [facility] 09-21-2020 07:32-0400 Body temperature 97.81 [degF] Ana Maria Baker MD Work Phone: [facility] 09-21-2020 07:32-0400 Body weight 85.28 kg Ana Maria Baker MD Work Phone: [facility] 09-21-2020 07:32-0400 Diastolic blood pressure 76 mm[Hg] Ana Maria Baker MD Work Phone: [facility] 09-21-2020 07:32-0400 Heart rate 65 /min Ana Maria Baker MD Work Phone: [facility] 09-21-2020 07:32-0400 Respiratory rate 16 /min Ana Maria Baker MD Work Phone: [facility] 09-21-2020 07:32-0400 SaO2% (BldA) [Mass fraction] 97 % Ana Maria Baker MD Work Phone: [facility] 09-21-2020 07:32-0400 Systolic blood pressure 130 mm[Hg] Ana Maria Baker MD Work Phone: [facility] 08-26-2020 09:07-0400 BMI (Body Mass Index) 29.6 kg/m2 Shahla Oostra [facility] 08-26-2020 09:07-0400 Body weight 85.73 kg Shahla Oostra [facility] 08-26-2020 09:07-0400 Height 170.2 cm Shahla Oostra [facility] 05-06-2020 12:26-0500 BMI (Body Mass Index) 31.61 kg/m2 Ana Maria Baker [facility] 05-06-2020 12:26-0500 Body Temperature 98.29 [degF] Ana Maria Baker [facility] 05-06-2020 12:26-0500 Body weight 91.54 kg Ana Maria Sawyerr [facility] 05-06-2020 12:26-0500 BP Diastolic 84 mm[Hg] Ana Maria Olivia [facility] 05-06-2020 12:26-0500 BP Systolic 120 mm[Hg] Ana Maria Sawyerr [facility] 05-06-2020 12:26-0500 Height 170.2 cm Ana Maria Sawyerr [facility] 05-06-2020 12:26-0500 Pulse (Heart Rate) 95 /min Ana Maria Sawyerr [facility] 05-06-2020 12:26-0500 Pulse Oximetry 98 % Ana Maria Baker [facility] 05-06-2020 12:26-0500 Respiratory Rate 16 /min Ana Maria Baker [facility] 01-11-2018 09:06-0400 BMI (Body Mass Index) 27.88 kg/m2 [facility] 01-11-2018 09:06-0400 Body Temperature 98.01 [degF] [facility] 01-11-2018 09:06-0400 BP Diastolic 70 mm[Hg] [facility] 01-11-2018 09:06-0400 BP Systolic 104 mm[Hg] [facility] 01-11-2018 09:06-0400 Height 170.2 cm [facility] 01-11-2018 09:06-0400 Pulse (Heart Rate) 91 /min [facility] 01-11-2018 09:06-0400 Pulse Oximetry 98 % [facility] 01-11-2018 09:06-0400 Respiratory Rate 16 /min [facility] 01-11-2018 09:06-0400 Weight 80.74 kg [facility] Encounters Encounter Date Encounter Type Care Provider Facility Start: 12-30-2024 ambulatory Kartik RIDLEY Facility :[facility] Start: 12-25-2024 ambulatory Robyn Warner Facility:[facility] Start: 12-23-2024 End: 12-23-2024 Get Medical Advice [...] Start: 12-19-2024 End: 12-19-2024 ambulatory KARTIK PADGETT Facility:[facility] Start: 12-11-2024 End: 12-11-2024 ambulatory [facility] OB/Gynecology Comment on above: 12/19 Start: 12-11-2024 End: 12-11-2024 E-mail encounter from caregiver [facility] Provider OB/Gynecology Start: 10-17-2024 End: 10-17-2024 ambulatory Kartik Padgett [facility] Work Phone: -Physical Therapy Start: 10-17-2024 End: 10-17-[address] Daryl Geiger MD -Physical Therapy Work Phone: Start: 10-07-2024 ambulatory Chasidy Norton Facility:[facility] Start: 09-26-2024 End: 09-26-[address] Eulogio Mello DO -[facility] Work Phone: Start: 09-26-2024 End: 09-26-2024 ambulatory Kartik Padgett [facility] Facility:[facility] Start: 09-25-2024 End: 09-25-2024 Patient encounter procedure Robyn Warner APRN.[employer] Work Phone: OB/Gynecology Comment on above: Osteoarthritis of le ft knee, unspecified osteoarthritis type (Primary Dx); Anxiety; Stress incontinence; History of gestational diabetes; Binge-eating disorder, in full remission, mild; History of obesity Start: 09-25-2024 End: 09-25-2024 ambulatory KARTIK PADGETT Facility:[facility] Start: 08-07-2024 End: 08-07-2024 Patient encounter procedure Brooke Liu [facility] -[facility] Work Phone: Start: 08-07-2024 End: 08-07-2024 ambulatory Kartik Hdezder VS Facility:[facility] Start: 08-07-2024 End: 08-07-2024 ambulatory Kartik Padgett [facility] Work Phone: [facility] Work Phone: Start: 08-07-2024 End: 08-07-2024 Patient encounter procedure Brooke Liu [facility] -[facility] Work Phone: Start: 08-07-2024 End: 08-07-2024 ambulatory Brooke Liu Facility:[facility] Start: 08-04-2024 End: 08-04-2024 Patient encounter procedure Brooke Noe [facility] -[facility] Work Phone: Start: 08-04-2024 End: 08-04-2024 ambulatory Kartik Padgett [facility] Facility:[facility] Start: 07-03-2024 End: 07-03-2024 Patient encounter procedure Robyn Warner APRN.[employer] Work Phone: OB/Gynecology Comment on above: Osteoarthritis of le ft knee, unspecified osteoarthritis type (Primary Dx); Anxiety; Stress incontinence; History of gestational diabetes; Binge-eating disorder, in full remission, mild; History of obesity Start: 07-03-2024 End: 07-03-2024 ambulatory KARTIK PADGETT Facility:[facility] Start: 06-23-2024 ambulatory Kartik Padgett [facility] Facility :[facility] Start: 06-10-2024 ambulatory Kartik Padgett [facility] Facility :[facility] Start: 06-10-2024 Non-patient / Non-visit Dr. Eulogio stevens DO [facility] Start: 06-10-2024 End: 06-10-2024 Admission to same day surgery center Dr. Eulogio Mello -[facility] Start: 06-10-2024 End: 06-10-2024 [facility] Start: 04-15-2024 End: 04-15-2024 Refill Carolyn Dumas APRN.[employer] Work Phone: OB/Gynecology Comment on above: Refill Request Diflucan Start: 04-09-2024 End: 04-09-2024 ambulatory KARTIK HDEZDER Facility:[facility] Start: 04-09-2024 End: 04-09-2024 Patient encounter procedure Robyn Warner APRN.CNP Work Phone: OB/Gynecology Comment on above: Osteoarthritis of le ft knee, unspecified osteoarthritis type (Primary Dx); Anxiety; Stress incontinence; History of gestational diabetes; Binge-eating disorder, in full remission, mild; History of obesity Start: 04-01-2024 End: 04-01-2024 ambulatory Kartik Padgett [facility] Facility:[facility] Start: 03-14-2024 End: 03-14-2024 ambulatory Kartik Padgett [facility] Facility:[facility] Start: 03-12-2024 ambulatory [facility] Facility:[facility] Start: 03-12-2024 End: 03-12-2024 ambulatory [facility] Facility:[facility] Start: 03-07-2024 End: 03-07-2024 ambulatory [facility] Facility:[facility] Start: 02-13-2024 End: 02-13-2024 ambulatory [facility] Facility:[facility] Start: 02-13-2024 End: 02-13-2024 Patient encounter procedure Robyn Warner APRN.CNP Work Phone: OB/Gynecology Comment on above: Osteoarthritis of le ft knee, unspecified osteoarthritis type (Primary Dx); Anxiety; Stress incontinence; History of gestational diabetes; Binge-eating disorder, in full remission, mild; History of obesity Start: 02-05-2024 End: 02-06-2024 Documentation procedure Mammography Coordinator [facility] Start: 02-05-2024 End: 02-06-2024 Letter encounter Mammography Coordinator [facility] Start: 02-01-2024 End: 02-01-2024 ambulatory ROBYN WARNER Facility:[facility] Start: 02-01-2024 End: 02-01-2024 Subsequent hospital visit by physician Screen Mammo [facility] Mammogram Comment on above: Encounter for screen ing mammogram for malignant neoplasm of breast [Z12.31] Start: 01-21-2024 End: 01-21-2024 Telephone encounter Robyn Warner APRN.CNP Work Phone: Mammogram Comment on above: Orders Start: 12-26-2023 End: 12-27-2023 ambulatory [facility] Facility:[facility] Start: 12-26-2023 End: 12-26-2023 Patient encounter procedure Robyn Warner APRN.[employer] Work Phone: OB/Gynecology Comment on above: Osteoarthritis of le ft knee, unspecified osteoarthritis type (Primary Dx); Anxiety; Stress incontinence; History of gestational diabetes; Binge-eating disorder, in full remission, mild; Screening cholesterol level; Screening for diabetes mellitus; Screening for metabolic disorder; Screening for thyroid disorder; Screening for deficiency anemia; History of obesity in adulthood Start: 11-30-2023 ambulatory Robyn CHE RN.[employer] Work Phone: OB/Gynecology Comment on above: medications Start: 11-30-2023 E-mail encounter fro m caregiver Robyn Warner APRN.[employer] Work Phone: OB/Gynecology Start: 11-23-2023 End: 11-23-2023 Patient encounter procedure Robyn Warner APRN.[facility] Work Phone: OB/Gynecology Comment on above: Encounter for gyneco logical examination (general) (routine) without abnormal findings (Primary Dx); Stress incontinence; Encounter for screening mammogram for breast cancer; Heterogeneously dense tissue of both breasts on mammography; History of obesity Start: 11-23-2023 End: 11-23-2023 Patient encounter status Robyn Warner APRN.CNP Work Phone: [facility] Start: 11-14-2023 Get Medical Advice Robyn carreno APRN.[facility] Work Phone: OB/Gynecology Comment on above: Refill Start: 10-02-2023 End: 10-02-2023 Patient encounter procedure Robyn Warner APRN.[employer] Work Phone: OB/Gynecology Comment on above: Vaginal dryness (Bria mariajose Dx); Low libido; Malaise and fatigue Start: 09-26-2023 End: 09-26-2023 ambulatory [facility] Work Phone: Start: 09-26-2023 End: 09-26-2023 Patient encounter procedure [facility]-Laboratory, OP Pavilion Start: 03-19-2023 End: 03-19-2023 ambulatory [facility] Kartik Padgett [facility] Work Phone: [facility] Work Phone: Start: 03-19-2023 End: 03-19-2023 Patient encounter procedure [facility] Kartik Padgett [facility] Work Phone: [facility]-Laboratory, Specimen Work Phone: Start: 03-19-2023 End: 03-19-2023 Patient encounter procedure [facility] Kartik Padgett [facility] Work Phone: [facility] Work Phone: Start: 03-18-2023 End: 03-18-2023 Emergency department patient visit [facility] Kartik Padgett [facility] Work Phone: [facility]-Emergency Department Work Phone: Start: 02-23-2023 End: 02-23-2023 Patient encounter procedure [facility] Kartik Padgett [facility] Work Phone: [facility] Work Phone: Start: 02-12-2023 End: 02-12-2023 ambulatory [facility] Work Phone: Start: 02-12-2023 End: 02-12-2023 Patient encounter procedure [facility]-MRI - [facility] Work Phone: Start: 01-26-2023 End: 01-26-2023 ambulatory gloria GARRIDO [facility] Work Phone: Start: 01-26-2023 End: 01-26-2023 Patient encounter procedure gloria GARRIDO [facility]-Outpatient Breast Imaging Work Phone: Start: 01-07-2023 ambulatory Robyn CHE RN.[employer] Work Phone: OB/Gynecology Comment on above: Mammogram Start: 10-17-2022 End: 10-17-2022 Patient encounter procedure MD Daria GARRIDO [facility] Work Phone: Start: 05-03-2022 End: 05-03-2022 Patient encounter procedure Robyn Warner APRN.CNP Work Phone: OB/Gynecology Comment on above: Vulvovaginal itching (Primary Dx) Start: 04-27-2022 Telephone encounter Robyn augustin APRN.CNP Work Phone: OB/Gynecology Comment on above: Patient Question Start: 04-18-2022 End: 04-18-2022 Patient encounter procedure Robyn Warner APRN.[employer] Work Phone: OB/Gynecology Comment on above: Vaginal discharge (P rimary Dx); Vagina itching Start: 02-11-2022 End: 02-11-2022 Emergency department patient visit No Primary Care Physician [facility]-Emergency Department Start: 01-16-2022 End: 01-16-2022 ambulatory No Primary Care Physician [facility] Work Phone: Start: 01-16-2022 End: 01-16-2022 Patient encounter procedure No Primary Care Physician [facility]-Pulmonary Services/Neurology Start: 12-23-2021 End: 12-23-2021 Patient encounter procedure No Primary Care Physician [facility] Start: 12-09-2021 End: 12-09-2021 Patient encounter procedure No Primary Care Physician [facility] Internal [facility] Start: 11-29-2021 Patient encounter status No Pr [facility] Care Physician [facility] Start: 11-29-2021 End: 11-29-2021 Encounter for general adult medical examination without abnormal findings No Primary Care Physician [facility] Start: 11-29-2021 End: 11-29-2021 Patient encounter procedure No Primary Care Physician [facility] Start: 11-23-2021 End: 11-23-2021 Patient encounter procedure No Primary Care Physician [facility] Start: 09-28-2021 End: 09-28-2021 Patient encounter procedure No Primary Care Physician [facility] Start: 08-17-2021 End: 08-17-2021 Patient encounter procedure No Primary Care Physician [facility]-Outpatient Breast Imaging Start: 08-04-2021 End: 08-04-2021 Patient encounter procedure No Primary Care Physician [facility] Start: 07-28-2021 End: 07-28-2021 Patient encounter procedure No Primary Care Physician [facility] Start: 06-30-2021 Orders Only Ana Maria Baker MD Work Phone: [facility] Primary Care Physicians Start: 05-09-2021 Registered Recurring No Primar y Care Physician [facility] - Other Staff Start: 02-17-2021 Orders Only Ana Maria Baker MD Work Phone: [facility] Start: 02-16-2021 Orders Only Ana Maria Baker MD Work Phone: [facility] Start: 01-28-2021 Chart abstracting Ana Maria Glover Work Phone: [facility] Start: 01-06-2021 End: 01-10-2021 Orders Only Cathy Salgado [employer] Work Phone: [facility] Primary Care Physicians Comment on above: Vaginal itching (Bria mariajose Dx) Occupational exposur e to COVID-19 virus (Primary Dx) Start: 12-14-2020 End: 12-14-2020 Orders Only Cathy Salgado [employer] Work Phone: [facility] Physicians Comment on above: Situational anxiety (Primary Dx) Start: 12-08-2020 ambulatory YOBANI HIDALGO [facility] Ambulatory Start: 12-01-2020 End: 12-01-2020 Orders Only Ana Maria Baker MD Work Phone: [facility] Phys[facility] Start: 11-25-2020 End: 11-25-2020 ambulatory SHERRY BAGLEY [facility] Start: 11-22-2020 End: 11-22-2020 Orders Only Ana Maria Baker MD Work Phone: [facility] Physicians Start: 10-22-2020 End: 10-22-2020 ambulatory SHAHLA CASTAÑEDA [facility] Start: 10-22-2020 End: 10-22-2020 Postop follow up visit related to original px Shahla Castañeda MD Work Phone: [facility] Comment on above: 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) Start: 10-05-2020 End: 10-05-2020 ambulatory [facility] Start: 10-01-2020 End: 10-01-2020 ambulatory [facility] Start: 09-27-2020 End: 09-27-2020 Orders Only Ana Maria Baker MD Work Phone: [facility] Start: 09-21-2020 End: 09-25-2020 ambulatory ANA MARIA BAKER [facility] Start: 09-21-2020 End: 09-21-2020 ambulatory ANA MARIA BAKER [facility] Start: 09-21-2020 End: 09-21-2020 Office outpatient visit 15 minutes Ana Maria Baker MD Work Phone: [facility] Comment on above: 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); Physical exam Start: 09-21-2020 End: 09-21-2020 Physical examination Ana Maria Baker MD Work Phone: [facility] Start: 09-20-2020 End: 09-20-2020 Admission to same day surgery center Shahla Castañeda MD Work Phone: [facility] Start: 09-15-2020 End: 09-15-2020 ambulatory SHAHLA RESTREPO [facility] Start: 09-15-2020 End: 09-15-2020 Office outpatient visit 25 minutes Shahla Castañeda MD Work Phone: [facility] Comment on above: 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) Start: 09-09-2020 ambulatory SHAHLA KAYE [facility] Ambulatory Start: 08-27-2020 End: 08-28-2020 ambulatory ANA MARIA OLIVIA [facility] Start: 08-27-2020 End: 08-27-2020 Coordination of care plan Keily Ken Patient Navigator Start: 08-27-2020 End: 08-27-2020 Subsequent hospital visit by physician Shahla Castañeda Work Phone: [facility] Comment on above: Canceled (Provider/C ancelled) Arrived Start: 08-26-2020 End: 08-26-2020 Orders Only Ana Maria Olivia Work Phone: [facility] Comment on above: Stress at home Start: 08-26-2020 End: 08-26-2020 Office outpatient new 45 minutes Ana Maria Olivia Work Phone: [facility] Comment on above: Mass of upper inner quadrant of right breast (Primary Dx); Abnormal mammogram of right breast; Abnormal MRI, breast; Follow-up examination of abnormal mammogram Start: 08-25-2020 End: 08-26-2020 ambulatory PROVIDER NOT IN [facility] Start: 08-25-2020 End: 08-25-2020 Subsequent hospital visit by physician Provider Not In [facility] External Films Comment on above: Arrived Start: 08-24-2020 End: 08-25-2020 Orders Only Ana Maria Olivia Work Phone: [facility] Comment on above: Stress at home (Prim alivia Dx) Follow-up examinatio n of abnormal mammogram (Primary Dx) Arrived Start: 08-20-2020 ambulatory ANA MARIA OLIVIA [facility] Start: 08-19-2020 End: 08-19-2020 Orders Only Ana Maria Olivia Work Phone: [facility] Comment on above: Follow-up examinatio n of abnormal mammogram (Primary Dx) Start: 08-17-2020 End: 08-17-2020 Orders Only Ana Maria Olivia Work Phone: [facility] Comment on above: Follow-up examinatio n of abnormal mammogram (Primary Dx) Start: 08-10-2020 End: 08-14-2020 Orders Only Ana Maria Olivia Work Phone: [facility] Comment on above: Encounter for screen ing for malignant neoplasm of breast, unspecified screening modality (Primary Dx) Lateral epicondyliti s, unspecified laterality (Primary Dx); Acute pain of left shoulder Start: 08-09-2020 End: 08-09-2020 Orders Only Ana Maria Olivia Work Phone: [facility] Comment on above: Encounter for screen ing for malignant neoplasm of breast, unspecified screening modality (Primary Dx) Start: 07-28-2020 End: 08-01-2020 [facility] Start: 07-22-2020 End: 07-22-2020 Patient encounter procedure Ana Maria Sawyerr Work Phone: [facility] Comment on above: Left shoulder pain, unspecified chronicity; Lateral epicondylitis, unspecified laterality Cigarette nicotine d ependence without complication Start: 07-22-2020 End: 07-26-2020 [facility] Start: 07-20-2020 End: 07-21-2020 Patient encounter procedure ANA MARIASARA BAKER [facility] Start: 07-16-2020 End: 07-16-2020 Orders Only Cathy Salgado Work Phone: [facility] Comment on above: Cigarette nicotine d ependence without complication (Primary Dx) Start: 07-12-2020 End: 07-12-2020 Orders Only Ana Maria Olivia Work Phone: [facility] Comment on above: Lateral epicondyliti s, unspecified laterality (Primary Dx) Start: 07-07-2020 End: 07-07-2020 Orders Only Ana Maria Olivia Work Phone: [facility] Comment on above: Obesity (BMI 30-39.9 ) (Primary Dx) Start: 06-07-2020 End: 06-07-2020 Orders Only Ana Maria Olivia Work Phone: [facility] Comment on above: Obesity (BMI 30-39.9 ) Start: 06-01-2020 End: 06-01-2020 ambulatory ANA MARIA [facility] Start: 05-07-2020 End: 05-11-2020 ambulatory [facility] Start: 05-06-2020 End: 05-10-2020 ambulatory ANA MARIA [facility] Start: 05-06-2020 End: 05-06-2020 [facility] Start: 05-06-2020 End: 05-06-2020 Office outpatient new 30 minutes Ana Maria Baker Work Phone: [facility] Comment on above: Lateral epicondyliti s, unspecified laterality (Primary Dx); Obesity (BMI 30-39.9) Start: 04-29-2020 End: 04-29-2020 ambulatory ANSELMO OWENS [facility] Start: 01-11-2018 Patient encounter status Shahla Castañeda MD Work Phone: [facility] Start: 01-11-2018 End: 01-11-2018 Office outpatient new 30 minutes Cathy Salgado Work Phone: [facility] Start: 10-05-2017 End: 10-06-2017 Patient encounter procedure [facility] Facility:[facility] Procedures Date Procedure Procedure Detail Performing Clinician Start: 08-07-2024 MRI of lower extremity Kartik Padgett [employer] Work Phone: Start: 08-04-2024 Plain radiography of pelvis Kartik Padgett [employer] [facility] Work Phone: Start: 08-04-2024 Plain X-ray of femur Ma darian Padgett [facility] Work Phone: Start: 03-19-2023 Anaerobic microbial culture [facility] Kartik Padgett [facility] Work Phone: Start: 03-19-2023 Investigation of tra nsfusion reaction [facility] Kartik Hdezder [facility] Work Phone: Start: 03-19-2023 Microbial culture, routine [facility] Kartik Padgett [facility] Work Phone: Start: 03-18-2023 X-ray of both feet [facility] Kartik Padgett [facility] Work Phone: Start: 02-12-2023 [...] Maria Olivia Start: 08-13-2020 Mammography Robyn augustin APRN.[employer] Work Phone: Start: 05-06-2020 Adult depression scr eening assessment Ana Maria Olivia Plan of Treatment Date Care Activity Detail Author Start: 02-12-2032 Urine microalbumin profile DTaP,Tdap,Td Vaccine (8 - Td or Tdap) [facility] Start: 01-12-2028 Tetanus vaccination [facility] Start: 01-12-2028 Urine microalbumin profile DTAP,TDAP,TD (7 - Td or Tdap) [facility] Start: 04-03-2025 End: 04-03-2025 Patient encounter procedure 04/03/2025 7:30 AM EST Office Visit OB/Gynecology [address] [place], [place] [id number] Robyn Warner APRN.[employer] [address] [place], [place] [id number] weight management follow up OB/Gynecology Comment on above: weight management fo llow up Start: 01-31-2025 Screening for malign ant neoplasm of breast Mammogram Screening [facility] Start: 01-26-2025 Influenza vaccination Influenza Vacc ine (#1) [facility] Start: 12-19-2024 End: 03-20-2025 Comprehensive metabolic 2000 panel - Serum or Plasma COMPREHENSIVE METABOLIC PANEL Lab Routine Encounter for long-term (current) use of medications Expected: 12/19/2024, Expires: 03/20/2025 [facility] Work Phone: Comment on above: Expected: 12/19/2024 , Expires: 03/20/2025 Start: 12-19-2024 End: 12-19-2024 Patient encounter procedure 12/19/2024 7:00 AM EDT Office Visit OB/Gynecology [address] [place] [address] Robyn Warner APRN.[employer] [address] [place] [address] weight management follow up OB/Gynecology Comment on above: weight management fo llow up Start: 11-21-2024 End: 11-21-2024 Patient encounter procedure 11/21/2024 7:30 AM EDT Office Visit OB/Gynecology [address] [place] [address] Robyn Warner APRN.[employer] [address] [place] [address] (Fax) ANNUAL OB/Gynecology Comment on above: ANNUAL Start: 09-25-2024 End: 09-25-2024 Patient encounter procedure 09/25/2024 3:30 PM EDT Office Visit OB/Gynecology [address] [place] [address] Robyn Warner APRN.[employer] [address] [place] [address] wt mgmt f/up OB/Gynecology Comment on above: wt mgmt f/up Start: 07-03-2024 End: 07-03-2024 Patient encounter procedure 07/03/2024 2:30 PM EST Office Visit OB/Gynecology [address] [place] [address] Robyn Warner, LABORATORY TECHNOLOGIST.[employer] [address] [place] [address] wt mgmt f/up ok per AG OB/Gynecology Comment on above: wt mgmt f/up ok per AG Start: 06-10-2024 Anes nerve muscle td n fascia&bursa forearm wrist ANESTH LOWER ARM SURGERY [facility] Start: 06-10-2024 Injection therapeuti c carpal tunnel THER INJECTION CARP TUNNEL [facility] Start: 06-10-2024 Neuroplasty &/transp os median nrv carpal tunne CARPAL TUNNEL SURGERY [facility] Start: 06-10-2024 Application of ice collar, cap or bag [facility] Start: 06-10-2024 Catheterization of vein [facility] Start: 06-10-2024 Elevation of affecte d extremity [facility] Start: 06-10-2024 Following clinical pathway protocol [facility] Start: 06-10-2024 Patient discharge [facility] Start: 06-10-2024 Procedure discontinued [facility] Start: 06-10-2024 Taking patient vital signs [facility] Start: 06-10-2024 Vital signs measurements [facility] Start: 06-10-2024 [facility] Start: 06-10-2024 Medication education [facility] Start: 04-09-2024 End: 04-09-2024 Patient encounter procedure 04/09/2024 11:30 AM EST Office Visit OB/Gynecology [address] [place] [address] Robyn Warner, LABORATORY TECHNOLOGIST.[employer] WORKER [address] [place] [address] wt mgmt f/u OB/Gynecology Comment on above: wt mgmt f/u Start: 02-13-2024 End: 02-13-2024 Patient encounter procedure 02/13/2024 7:30 AM EDT Office Visit OB/Gynecology [address] [place] [address] Robyn Warner APRN.[employer] [address] [place] [address] wt mgt F/up OB/Gynecology Comment on above: wt mgt F/up Start: 02-01-2024 End: 02-01-2024 Patient encounter procedure 02/01/2024 8:10 AM EDT Appointment Mammogram [address] [place] [address] TAMIKO SCREENING W JR Encounter for gynecological examination (general) (routine) without [...] Vaccine ( season) Covid-19 Vaccine ( season) [facility] Start: 01-27-2024 Covid-19 Vaccine ( season) Covid-19 Vaccine ( season) [facility] Start: 01-27-2024 Influenza vaccination Influenza Vacc ine (#1) [facility] Start: 01-27-2024 Screening for malign ant neoplasm of breast Mammogram Screening [facility] Start: 11-23-2023 End: 11-23-2023 Patient encounter procedure 11/23/2023 7:00 AM EDT Office Visit OB/Gynecology [address] [place] [address] WarnerRobyn holland APRN.[employer] WORKER [address] [place] [address] Annual exam/breast exam OB/Gynecology Comment on above: Annual exam/breast e xam Start: 05-28-2023 Behavioral Health Screening Behavioral Health Screening [facility] Start: 03-18-2023 End: 03-18-2023 [facility] Start: 01-26-2023 Covid-19 Vaccine ( season) Covid-19 Vaccine () [facility] Start: 01-26-2023 Influenza vaccination INFLUENZA (#1) [facility] Start: 05-28-2022 [facility] Start: 01-26-2022 Influenza vaccination INFLUENZA (#1) [facility] Start: 01-03-2022 HPV TESTING HPV TESTING [facility] Start: 01-03-2022 PAP TESTING PAP TESTING [facility] Start: 01-03-2022 Screening for malign ant neoplasm of cervix [facility] Start: 08-19-2021 Screening for malign ant neoplasm of breast Mammogram [facility] Start: 08-19-2021 Screening mammography [facility] Start: 08-13-2021 Mammography MAMMOGRAM [facility] Start: 05-28-2021 DEPRESSION ASSESSMENT DEPRESSION ASS ESSMENT [facility] Start: 05-06-2021 Adolescent depressio n screening assessment Depression Screening (PHQ9) [facility] Start: 05-06-2021 Depression screening using PHQ-9 (Patient Health Questionnaire 9) score [facility] Start: 04-22-2021 End: 04-22-2021 Patient encounter procedure 04/22/2021 Office Visit Breast Surgery Shahla Castañeda MD [address] [place] [address] [phone] [facility] Start: 01-26-2021 Influenza vaccination [facility] Start: 11-25-2020 End: 11-25-2020 Patient encounter procedure 11/25/2020 Office Visit Breast Surgery Sherry Bagley PA-C [address] [facility] [address] [place] [address] [phone] [facility] Start: 10-22-2020 End: 10-22-2020 Follow-up encounter 10/22/2020 Follow-Up Breast Surgery Shahla Castañeda MD [address] [facility] [address] [place] [address] [phone] [facility] Start: 10-05-2020 End: 10-05-2020 Admission to same day surgery center 10/05/2020 Surgery Shahla Castañeda MD [address] [facility] [address] [place] [address] [phone] Right breast open excisional biopsy with intraoperative ultrasound-guided localization [facility] Comment on above: Right breast open ex cisional biopsy with intraoperative ultrasound-guided localization Start: 10-05-2020 Subsequent hospital visit by physician 10/05/2020 Hospital Encounter Shahla Castañeda MD [address] [facility] [address] [place] [address] [phone] [facility] Start: 09-21-2020 End: 09-21-2020 Patient encounter procedure 09/21/2020 Office Visit Primary Care Ana Maria Baker MD [address] [address] [phone] [facility] Start: 08-27-2020 End: 08-26-2021 US Breast Right Limited US Breast Right Limited Imaging Routine Mass of upper inner quadrant of right breast Expected: 08/27/2020, Expires: 08/26/2021 [facility] Comment on above: Expected: 08/27/2020 , Expires: 08/26/2021 Start: 08-27-2020 End: 08-27-2020 Office Visit [facility] Start: 08-26-2020 End: 08-26-2021 Ultrasonography guided biopsy of right breast US Breast Biopsy Right Imaging Routine Mass of upper inner quadrant of right breast Expected: 08/26/2020, Expires: 08/26/2021 [facility] Comment on above: Expected: 08/26/2020 , Expires: 08/26/2021 Start: 08-26-2020 End: 08-26-2020 [facility] Start: 08-24-2020 End: 08-24-2021 Ultrasonography guided biopsy of right breast US Breast Biopsy Right Imaging Routine Stress at home Expected: 08/24/2020, Expires: 08/24/2021 [facility] Comment on above: Expected: 08/24/2020 , Expires: 08/24/2021 Start: 08-20-2020 End: 08-20-2021 MRI of breast MR Breast Bilateral With And Without Contrast Imaging Routine Follow-up examination of abnormal mammogram Expected: 08/20/2020, Expires: 08/20/2021 [facility] Comment on above: Expected: 08/20/2020 , Expires: 08/20/2021 Start: 08-19-2020 End: 08-19-2021 MR Breast Right With Contrast MR Breast Right With Contrast Imaging Routine Follow-up examination of abnormal mammogram Expected: 08/19/2020, Expires: 08/19/2021 [facility] Comment on above: Expected: 08/19/2020 , Expires: 08/19/2021 Start: 08-19-2020 End: 08-19-2020 [facility] Start: 08-17-2020 End: 10-17-2021 MG Breast - bilateral diagnostic Mammography Diagnostic Bilateral Imaging Routine Follow-up examination of abnormal mammogram Expected: 08/17/2020, Expires: 10/17/2021 [facility] Comment on above: Expected: 08/17/2020 , Expires: 10/17/2021 Start: 08-12-2020 End: 08-12-2020 Treatment [facility] Start: 08-10-2020 End: 10-10-2021 MG Breast - bilateral screening Mammography Screening Bilateral Imaging Routine Encounter for screening for malignant neoplasm of breast, unspecified screening modality Expected: 08/10/2020, Expires: 10/10/2021 [facility] Comment on above: Expected: 08/10/2020 , Expires: 10/10/2021 Start: 08-10-2020 End: 08-10-2020 [facility] Start: 08-09-2020 End: 08-09-2020 Office Visit [facility] Start: 08-09-2020 End: 10-09-2021 MG Breast - bilateral screening Mammography Screening Bilateral Imaging Routine Encounter for screening for malignant neoplasm of breast, unspecified screening modality Expected: 08/09/2020, Expires: 10/09/2021 [facility] Comment on above: Expected: 08/09/2020 , Expires: 10/09/2021 Start: 08-05-2020 End: 08-05-2020 Treatment 08/05/2020 Treatment Rehabilitation Ana Maria Baker MD [address] [address] [phone] Marlon Mills PTA [facility] Start: 07-29-2020 End: 07-29-2020 Treatment 07/29/2020 Treatment Rehabilitation Ana Maria Baker MD [address] [address] [phone] Marlon Mills PTA [facility] Start: 07-22-2020 End: 07-22-2020 Evaluation 07/22/2020 Evaluation Rehabilitation Ana Maria Baker MD [address] [place] [address] [phone] Chato Britton, KAVYA [facility] Start: 01-27-2020 Influenza vaccination Sequenti al Influenza Vaccine (#1) [facility] Start: 01-27-2020 Influenza vaccinatio n given Sequential Influenza Vaccine (#1) [facility] Start: 01-04-2020 Screening for malign ant neoplasm of cervix Cervical Cancer Screening [facility] Start: 01-26-2018 Influenza vaccination SEQUENTI AL INFLUENZA VACCINE (#1) [facility] Start: 03-27-2008 Hepatitis B Vaccine (3 of 3 - 19+ 3-dose series) Hepatitis B Vaccine (3 of 3 - 19+ 3-dose series) [facility] Start: 01-30-2008 HEPATITIS B (3 of 3 - 19+ 3-dose series) HEPATITIS B (3 of 3 - 19+ 3-dose series) [facility] Start: 01-20-2008 HEPATITIS B (3 of 3 - 19+ 3-dose series) HEPATITIS B (3 of 3 - 19+ 3-dose series) [facility] Start: 1998 Depression Screening Depression Scre ening [facility] Start: 1998 Hepatitis C antibody , confirmatory test Hepatitis C Screening [facility] Start: 1998 Hepatitis C screening Hepatitis C [facility] Start: 1998 HEPATITIS C SCREENING HEPATITIS C [facility] Start: 1998 HIV SCREENING HIV SCREENING [facility] Start: 1998 HIV screening HIV Screening [facility] Start: 1996 COVID-19 Vaccine (1 of 2) COVI D-19 Vaccine (1 of 2) [facility] Start: 1996 COVID-19 Vaccine (1) COVID-19 Vaccin e (1) [facility] Start: 07-31-1995 HIV screening HIV Screening [facility] Start: 1992 COVID-19 Vaccine (1) COVID-19 Vaccin e (1) [facility] Start: 1986 Pneumococcal Vaccine : Ped or At-Risk (1 of 4 - PCV13) Pneumococcal Vaccine: Ped or At-Risk (1 of 4 - PCV13) [facility] Start: 07-31-1983 History and physical examination, annual for health maintenance Wellness Visit [facility] Start: 01-30-1981 COVID-19 VACCINE (#1) COVID-19 VACCI NE (#1) [facility] Start: 1980 Screening mammography Mammogram [facility] BACTERIAL VAGINOSIS AMPLIFICATION BACTERIAL VAGINOSIS AMPLIFICATION Lab Routine Vaginal discharge Vagina itching 04/18/2022 4:03 PM EST [facility] Work Phone: End: 05-06-2021 Body mass index (BMI) [Ratio] Vitamin D, Total, 25-OH Lab Routine Obesity (BMI 30-39.9) 1 Occurrences starting 05/06/2020 until 05/06/2021 [facility] Comment on above: 1 Occurrences starti ng 05/06/2020 until 05/06/2021 EILEEN / TRICHOMONA S AMPLIFICATION EILEEN / TRICHOMONAS AMPLIFICATION Microbiology Routine Vaginal discharge Vagina itching 04/18/2022 4:03 PM [email or web address] Work Phone: End: 05-06-2021 Complete blood count with white cell differential, manual CBC and Differential Lab Routine Obesity (BMI 30-39.9) 1 Occurrences starting 05/06/2020 until 05/06/2021 [facility] Comment on above: 1 Occurrences starti ng 05/06/2020 until 05/06/2021 End: 05-06-2021 Comprehensive metabolic 2000 panel Comprehensive Metabolic Panel Lab Routine Obesity (BMI 30-39.9) 1 Occurrences starting 05/06/2020 until 05/06/2021 [facility] Comment on above: 1 Occurrences starti ng 05/06/2020 until 05/06/2021 End: 09-21-2021 Comprehensive metabolic 2000 panel - Serum or Plasma Comprehensive Metabolic Panel Lab Routine 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 Physical exam 1 Occurrences starting 09/21/2020 until 09/21/2021 [facility] Comment on above: 1 Occurrences starti ng 09/21/2020 until 09/21/2021 Comprehensive metabo lic 2000 panel - Serum or Plasma Comprehensive Metabolic Panel Lab Routine 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 Physical exam 09/21/2020 9:20 AM EDT [facility] End: 12-22-2024 DBT Breast - bilateral screening TAMIKO SCREENING W [facility] Routine Encounter for gynecological examination (general) (routine) without abnormal findings Encounter for screening mammogram for breast cancer Heterogeneously dense tissue of both breasts on mammography 1 Occurrences starting 11/23/2023 until 12/22/2024 [facility] Work Phone: Comment on above: 1 Occurrences starti ng 11/23/2023 until 12/22/2024 End: 02-19-2025 DBT Breast - bilateral screening TAMIKO SCREENING W [facility]iology Routine Encounter for screening mammogram for malignant neoplasm of breast 1 Occurrences starting 01/21/2024 until 02/19/2025 [facility] Work Phone: Comment on above: 1 Occurrences starti ng 01/21/2024 until 02/19/2025 DBT Breast - bilater al screening TAMIKO SCREENING W [facility] Radiology Routine Encounter for screening mammogram for malignant neoplasm of breast 02/01/2024 1:20 PM EDT [facility] Work Phone: Drugs of abuse urine screening test Drugs of Abuse Screen, Urine Lab Routine Obesity (BMI 30-39.9) 05/06/2020 2:03 PM EST [facility] Fungus identified in Unspecified specimen by Culture FUNGAL SCREEN Microbiology Routine Vulvovaginal itching Ordered: 05/03/2022 [facility] Work Phone: Comment on above: Ordered: 05/03/2022 End: 05-06-2021 HbA1c (Bld) [Mass fraction] Hemoglobin A1c Lab Routine Obesity (BMI 30-39.9) 1 Occurrences starting 05/06/2020 until 05/06/2021 [facility] Comment on above: 1 Occurrences starti ng 05/06/2020 until 05/06/2021 End: 05-06-2021 Lipid 1996 panel Lipid Panel Lab Routine Obesity (BMI 30-39.9) 1 Occurrences starting 05/06/2020 until 05/06/2021 [facility] Comment on above: 1 Occurrences starti ng 05/06/2020 until 05/06/2021 End: 10-26-2021 Mammography Stereotactic Breast Biopsy Right Mammography Stereotactic Breast Biopsy Right Imaging Routine Mass of upper inner quadrant of right breast 1 Occurrences starting 08/26/2020 until 10/26/2021 [facility] Comment on above: 1 Occurrences starti ng 08/26/2020 until 10/26/2021 End: 08-27-2020 Mammography Stereotactic Breast Biopsy Right Mammography Stereotactic Breast Biopsy Right Imaging Routine Mass of upper inner quadrant of right breast Once for 1 Occurrences starting 08/27/2020 until 08/27/2020 [facility] Comment on above: Once for 1 Occurrenc es starting 08/27/2020 until 08/27/2020 Patient Education [facility] Work Phone: Patient referral [facility] Work Phone: Procedure on tissue specimen [facility] Comment on above: Release Upon Orderin g for 1 Occurrences starting 08/27/2020, 1 completed End: 01-06-2022 SARS-CoV-2 (COVID-19) IgG Ab [Presence] in Serum or Plasma by Immunoassay SARS-CoV-2 Antibody, IgG Lab Routine Occupational exposure to COVID-19 virus 1 Occurrences starting 01/06/2021 until 01/06/2022 [facility] Comment on above: 1 Occurrences starti ng 01/06/2021 until 01/06/2022 SARS-CoV-2 (COVID-19 ) IgG Ab [Presence] in Serum or Plasma by Immunoassay SARS-CoV-2 Antibody, IgG Lab Routine Occupational exposure to COVID-19 virus 01/06/2021 3:06 PM EDT [facility] End: 05-06-2021 TSH Qn TSH with Reflex Free T4 Lab Routine Obesity (BMI 30-39.9) 1 Occurrences starting 05/06/2020 until 05/06/2021 [facility] Comment on above: 1 Occurrences starti ng 05/06/2020 until 05/06/2021 Immunizations Immunization Date Immunization Notes Care Provider [facility] 04-10-2024 influenza, seasonal, injectable, preservative free Kartik Leroy [facility] Work Phone: [facility] 04-10-2024 influenza virus vaccine, unspecified formulation [facility] Provider [facility] 03-15-2023 influenza, injectabl e, quadrivalent, preservative free [facility] Kartik Hdezder [facility] [facility] Work Phone: [facility] 03-15-2023 influenza virus vaccine, unspecified formulation Robyn aWrner APRN.PICK AND SHOVEL WORKER Work Phone: [facility] 02-11-2022 tetanus toxoid, reduced diphtheria toxoid, and acellular pertussis vaccine, adsorbed No Primary Care Physician [facility] 05-16-2021 influenza, injectabl e, quadrivalent, preservative free [facility] 05-16-2021 influenza, seasonal, injectable No Primary Care Physician [facility] 09-18-2018 hepatitis A vaccine, adult [facility] tetanus toxoid, reduced diphtheria toxoid, and acellular pertussis vaccine, adsorbed; Translations: [TDAP] [facility] 12-12-2017 hepatitis A vaccine, adult dosage Ana Maria Olivia [facility] 12-12-2017 hepatitis A vaccine, unspecified formulation [facility]2008 hepatitis B vaccine, pediatric or pediatric/adolescent dosage Ana Maria Olivia [facility] 08-30-2007 hepatitis B vaccine, adult dosage [facility] 08-30-2007 hepatitis B vaccine, unspecified formulation Robyn Warner APRN.P[employer] AND SHOVEL WORKER Work Phone: [facility] 07-29-2007 tuberculin skin test ; purified protein derivative solution, intradermal Robyn Warner APRN.P[employer] AND SHOVEL WORKER Work Phone: [facility] 07-24-2007 tuberculin skin test ; purified protein derivative solution, intradermal Robyn Warner LABORATORY TECHNOLOGIST.PICK AND SHOVEL WORKER Work Phone: [facility] 07-22-2007 hepatitis B vaccine, adult dosage [facility] 07-22-2007 tetanus toxoid, reduced diphtheria toxoid, and acellular pertussis vaccine, adsorbed [facility] 05-28-1993 diphtheria and tetan us toxoids, adsorbed for pediatric use [facility] 01-17-1993 measles, mumps and rubella virus vaccine [facility] 02-19-1987 trivalent poliovirus vaccine, live, oral [facility] 02-09-1986 diphtheria, tetanus toxoids and pertussis vaccine [facility] 02-09-1986 measles, mumps and rubella virus vaccine [facility] 02-09-1986 trivalent poliovirus vaccine, live, oral [facility] 02-09-1986 tuberculin skin test ; purified protein derivative solution, intradermal Robyn Warner LABORATORY TECHNOLOGIST.P[employer] AND SHOVEL WORKER Work Phone: [facility] 01-21-1981 diphtheria, tetanus toxoids and pertussis vaccine [facility] 01-21-1981 trivalent poliovirus vaccine, live, oral [facility] 1980 diphtheria, tetanus toxoids and pertussis vaccine [facility] 1980 trivalent poliovirus vaccine, live, oral [facility] Payers Date Payer Category Payer Self-pay [id number] 2023 Unknown [id number] 2021 Private Health Insurance [id number] .[id number]. [id number] 2020 Unknown [id number] 1.2.840.392756.1.13.385.2. 7.3.631695.315 2020 Unknown [id number] 2014 Unknown 2014 Unknown [id number] 1980 Unknown [id number] 2.16.840.1.515200.3.579.2. 717 1980 Unknown [id number] 2.16.840.1.068702.3.579.2. 902 1980 Unknown [id number] 2.16.840.1.231445.3.579.2. 900 1980 Unknown [id number] 2.16.840.1.013963.3.579.2. 900 1980 Unknown [id number] 2.16.840.1.862093.3.579.2. 900 1980 Unknown [id number] 2.16.840.1.209944.3.579.2. 900 1980 Unknown [id number] 2.16.840.1.406542.3.579.2. 900 1980 Unknown [id number] 2.16.840.1.028996.3.579.2. 900 1980 Unknown [id number] 2.16.840.1.737416.3.579.2. 900 1980 Unknown [id number] 2.16.840.1.491562.3.579.2. 900 1980 Unknown [id number] 2.16.840.1.331704.3.579.2. 900 1980 Unknown [id number] 2.16.840.1.824913.3.579.2. 900 1980 Unknown [id number] 2.16.840.1.995628.3.579.2. 903 1980 Unknown [id number] 2.16.840.1.546069.3.579.2. 903 1980 Unknown [id number] 2.16.840.1.602773.3.579.2. 903 1980 Unknown [id number] 2.16.840.1.396152.3.579.2. 1980 Unknown [id number] 2.16.840.1.534570.3.579.2 1980 Unknown [id number] 2.16.840.1.870882.3.579.2 1980 Unknown [id number] 2.16840.1.196760.3.579.2 1980 Unknown [id number] 2.16840.1.645604.3.579.2 1980 Unknown [id number] 2.840.1.684895.3.579.2 1980 Unknown [id number] 2.840.1.091472.3.579.2 1980 Unknown [id number] 2.840.1.604299.3.579.2 1980 Unknown [id number] 2.840.1.443357.3.579.2 1980 Unknown [id number] 2.840.1.669002.3.579.2 1980 Unknown [id number] 2.16840.1.819351.3.579.2 1980 Unknown [id number] 2.840.1.144660.3.579.2 1980 Unknown [id number] 2.16840.1.102223.3.579.2 1980 Unknown [id number] 2.16840.1.042366.3.579.2 1980 Unknown [id number] 2.16840.1.563505.3.579.2 1980 Unknown [id number] 2.16840.1.633692.3.579.2 1980 Unknown [id number] .840.1.134313.3.579.2. 903 Private Health Insurance [id number] Unknown [id number] Unknown [facility] [id number] Unknown S&S COLLECT SE LF PAY [id number] Unknown [facility] PACKAGE PLAN [id number] Unknown [id number] 2.16.840.1.421139.3.579.2. 462 Unknown [id number] 2.840.1.626659.3.579.2. 462 Unknown [id number] 2.840.1.283519.3.579.2. 462 Unknown [id number] 2.840.1.618088.3.579.2. 462 Unknown [id number] 2.16.840.1.789376.3.579.2. 462 Unknown [id number] 2.840.1.478810.3.579.2. 462 Unknown [id number] 2.16840.1.165833.3.579.2. 462 Unknown [id number] 2.840.1.084238.3.579.2. 462 Unknown [id number] 2.16840.1.491538.3.579.2. 462 Unknown [id number] 2.16.840.1.530238.3.579.2. 462 Unknown [id number] 2.16840.1.070089.3.579.2. 462 Unknown [id number] 2.16840.1.217466.3.579.2. 462 Unknown [id number] 2.16.840.1.644476.3.579.2. 462 Unknown [id number] 2.16.840.1.093515.3.579.2. 462 Unknown [id number] 2.16.840.1.572547.3.579.2. 462 Unknown [id number] 2.16840.1.398560.3.579.2. 462 Unknown [id number] 2.16840.1.145029.3.579.2. 462 Unknown [id number] 2.16840.1.930676.3.579.2. 462 Social History Date Type Detail Facility Start: 01-11-2018 End: 07-28-2020 Tobacco smoking status TNIS Current some day smoker [facility] Start: 05-28-1999 End: 07-26-2020 History of tobacco use Cigarette Smoker [facility] Start: 01-11-2018 End: 11-23-2023 Cigarettes smoked current (pack per day) - Reported [facility] Start: 1980 Sex Assigned At Not on [...] DRINKS [facility] Start: 05-06-2020 [facility] Start: 04-08-2022 End: 04-18-2022 Exposure to SARS-CoV-2 (event) Not sure [facility] Start: 05-06-2020 Tobacco Comment SOCIAL ONLY WH EN HAVING DRINKS [facility] Start: 09-21-2020 End: 04-18-2022 Tobacco smoking status TNIS Former smoker [facility] Start: 05-28-1999 End: 07-26-2020 History of tobacco use Current smoker [facility] Start: 10-22-2020 End: 11-25-2020 Alcohol intake Ex-drinker (finding) [facility] Start: 08-04-2021 End: 09-26-2024 Tobacco smoking status NHIS Unknown if ever smoked [facility] Start: 1980 Sex Assigned At Female W [facility] Start: 04-18-2022 Tobacco Comment social smoker now, estimates 1 pack lasts her two weeks [facility] Start: 05-03-2022 End: 11-23-2023 Tobacco use panel [facility] Adult Depression Screening Assessment 0 [facility] Start: 08-07-2024 Tobacco smoking stat us NHIS Smokes tobacco daily (finding) [facility] Start: 08-16-2024 Sex Female (finding) [facility] NEGATED: Highlighted row Not [facility] Goals Date Patient Goal Desired Activity /State Functional Status Date Assessment Result Facility 01-02-2015 Are you deaf, or do you have serious difficulty hearing No 01/02/2015 8:48 AM Debra Ram LPN No [facility] 01-02-2015 Are you blind, or do you have serious difficulty seeing, even when wearing glasses No 01/02/2015 8:48 AM Debra Ram LPN No [facility] 01-02-2015 Do you have serious difficulty walking or climbing stairs No 01/02/2015 8:48 AM Debra Ram LPN No [facility] 01-02-2015 Do you have difficul ty dressing or bathing No 01/02/2015 8:48 AM ACET Debra Ruff LPN No [facility] 01-02-2015 Because of a physica l, mental, or emotional condition, do you have difficulty doing errands alone such as visiting a physician's office or shopping No 01/02/2015 8:48 AM Debra Ram LPN No [facility] Mental Status Date Assessment Result Facility 06-10-2024 Cognitive function Voice/Name;To [facility]/Radha dickerson [facility] Work Phone: 01-02-2015 Because of a physica l, mental, or emotional condition, do you have serious difficulty concentrating, remembering, or making decisions No 01/02/2015 8:48 AM EDT Debra Ruff LPN No [facility] Clinical Notes 06-10-2015 to 12-19-2024 Robyn Warner APRN.PICK AND SHOVEL WORKER - 12/19/2024 7:00 AM EDTPatient Instructions Note [...] and granola S - none D - 8126-1304 protein and veg and small carb - potato/pasta/corn/rice No dessert S - rare - popcorn or ice cream Fluids: water Bedtime - 3595-1318 Eating Disorder binge eating Dietary changes: - [...] from his new company and that their state attorney said they have a strong case. [...] reviewed with the patient. 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 The patient is [...] 4 - Moderate documented in this encounter [facility] 12-19-2024 Note HNO ID: [id number] Author: ROBYN WARNER APRN.CNP Service: ? Author [...] and granola S - none D - 2532-4953 protein and veg and small carb - potato/pasta/corn/rice No dessert S - rare - popcorn or ice cream Fluids: water Bedtime - 3613-1989 Eating Disorder binge eating Dietary changes: - [...] from his new company and that their state attorney said they have a strong case. [...] Current Outpatient Medications (more content not included)... [facility] 12-17-2024 Instructions Robyn Warner, REJI.PICK AND SHOVEL WORKER - 12/17/2024 8:10 PM EDT -- Metformin [...] protein & 2g carb Two Good Lowfat Liberian Yogurt, Lower Sugar - 12g protein & [...] oz is 28 gm protein Beef, Chicken, [place], Pork, Eli 1 oz 7g Fish, Tuna [...] (not a meal replacement) Protein AND carbs Beef/[place] Jerky 1 oz dried 10-15g protein - check carb count, can be high if sugar added Slim Devante - 6 gm protein and 4 net carb Great Value original turkey sausage sticks - 7 gm protein and 2 gm carb Monica & Hung (at [facility]) Original smoked sausage sticks - 8 gm protein and 0 carb Imitation Crab Meat 1 oz - 2g protein & 4g carb Milk, skim 2% or 1% 8 oz - 8g protein & 12g carb Fairlife 2% milk 8 oz -13g protein & 6g carb Liberian yogurt Full Fat Liberian Yogurt 1 cup - 20.4g protein & 9.1g carb 2% Liberian Yogurt 1 cup - 22.7g protein & 9.1g carb 0% (fat-free) Liberian Yogurt - 1 cup 24g protein & 9.3g carb Aldi Protein Liberian yogurt single svg - 13/g15g protein & 7g carb Chobani Zero Sugar single svg: - 12g protein & 5g carb Dannon Liberian Light + Fit 1 single svg - 12g protein & 9g carb Oikos Pro single svg - 20g protein & 8g carb Oikos Triple Zero Liberian Nonfat Yogurt 1 single svg - 15g protein & 7g carb :ratio, KETO Friendly Dairy Snack 1 single svg - 15g protein & 2g carb :ratio Protein 1 single svg - 25g protein & 8g carb Two Good Lowfat Liberian Yogurt, [place], Lower Sugar - 12g protein & 2g carb Yoplait Protein 1 single svg 15g protein & 5g carb Dairy Free - [place] unsweetened Liberian almond/soy 15g protein & 3g carb Dairy [...] Cream Cheese 1.7g protein & 1.2g carb Spacebar whipped Liberian cream cheese (WM) 2 T 3g protein 2g carb Feta 4g protein & 1.2g carb Mozzarella 6.3g protein & 0.6g carb Parmesan 10g protein & 0.9g carb Malagasy 7.6g protein & 1.5g carb Cottage Cheese 1/2 c Breakstone 2% 13g protein 7g carb Nandini 2% 13g protein 5 g carb Good Culture 2% 14g protein 3g carb Lactaid 13g protein 5g carb Patel s Low Fat 12g protein & 4g carb Legumes Lentils cup 9g protein & 20g carb Mcdonald beans cup 7g protein & 20g carb Kidney, Black, Cooper, Cannellini beans cup 8g protein & 20g carb Chickpeas 1/2 c 6g protein & 15g carb Soybeans 1/2 c 14g complete protein & 8.5g carb [place] milk, unsweetened 8 oz 1g protein & 2g carb Soy milk 8 oz 3.5g protein & 1.6g carb Tofu 1/2 cup 10g protein & 2.3g carb Peanut butter, natural 2 Tbsp 7-8g protein & 4g net carbs, 190 calories PB2 powder 2 Tbsp 6g protein & 5g carb Nuts and Seeds per oz Almonds - 5.9g protein & 6.1g carb Sapphire Nuts - 4.0g protein & 3.4g carb [...] Seeds - 6.9g protein & 5g carb [place] Seeds - 5.8g protein & 5.6g carb Walnuts - 4.3g protein & 3.8g carb Edamame Beans (soybean) snack 1 pack 11 gm complete protein 2 carb 5 (FIVE) gram carb vegetable options 1 cup raw OR cup cooked: Asparagus Hernandez sprouts Beets Broccoli Brussel sprouts Cabbage Carrots Cauliflower Celery [place] Eggplant Green beans Lettuce Peppers Snap peas [...] High Protein Snack Ideas 1. Jerky 2. [place] mix without dried fruit 3. [place] roll-ups 4. Liberian yogurt 5. Veggies and yogurt dip 6. Tuna 7. Hard-boiled eggs 8. Peanut butter with celery 9. Cheese slices/ Cheese Stick 10. Handful of almonds, peanuts or walnuts 11. Cottage Cheese 12. Beef sticks 13. Protein bars 14. Canned [place] 15. Pumpkin seeds 16. Nut butter 17. Protein shake or protein bar 18. Avocado and chicken salad 19. Egg muffins 20. Leftover protein or lunch meat 21. 1/2 c blended cottage cheese or Liberian yogurt with dry ranch/Mrs. Dash/herb seasoning mix [...] are economical and optimized for taste by Mipso - they are designed to make you [...] Likely WEIGHT LOSS documented in this encounter [facility] 12-01-2024 Discharge summary Note Date/Time December 01, 2024 2:35p [facility] [address] [place] [address]. [address] [place] [address] / REHABILITATION SERVICES DISCHARGE SUMMARY MR#: [id number] Acct: [id number] Name: DO OLSON Rep #: [id number] : 1980 44 From: Harrison Smith PT, ATC Referring Dr.: Dr. Daryl Peralta MD Statu s: REG RCR Insurance: [employer]/Scripped SELF PAY INSURANCE Patient Information Patient Information: [...] KYRA Padgett; Dr. Daryl Peralta MD ~ [facility] Signed [facility] Work Phone: 1(217) 369-690607-07-2025 Discharge summary [facility] [place] [address] [facility]. [address] [place] [address] / REHABILITATION SERVICES DISCHARGE SUMMARY MR#: [id number] Acct: [id number] Name: DO OLSON Rep #: [id number] : 1980 44 From: Harrison Smith PT, ATC Referring Dr.: Dr. Daryl Peralta MD Statu s: REG RCR Insurance: [employer]/Scripped SELF PAY INSURANCE Patient Information Patient Information: [...] KYRA Padgett; Dr. Daryl Peralta MD ~ [facility] Signed [facility]05-01-2025 Instructions* Patient Instructions* Robyn Warner APRN.[facility] - 09/25/2024 3:47 PM EDT - [...] oz is 28 gm protein Beef, Chicken, [place], Pork, Eli 1 oz 7g Fish, Tuna [...] (not a meal replacement) Protein AND carbs Beef/[place] Jerky 1 oz dried 10-15g protein - check carb count, can be high if sugar added Slim Devante - 6 gm protein and 4 net carb Great Value original turkey sausage sticks - 7 gm protein and 2 gm carb Monica & Hung (at [facility]) Original smoked sausage sticks - 8 gm protein and 0 carb Imitation Crab Meat 1 oz - 2g protein & 4g carb Milk, skim 2% or 1% 8 oz - 8g protein & 12g carb Fairlife 2% milk 8 oz -13g protein & 6g car Liberian yogurt Full Fat Liberian Yogurt 1 cup - 20.4g protein & 9.1g carb 2% Liberian Yogurt 1 cup - 22.7g protein & 9.1g carb 0% (fat-free) Liberian Yogurt - 1 cup 24g protein & 9.3g carb Aldi Protein Liberian yogurt single svg - 13/g15g protein & 7g carb Chobani Zero Sugar single svg: - 12g protein & 5g carb Dannon Liberian Light + Fit 1 single svg - 12g protein & 9g carb Oikos Pro single svg - 20g protein & 8g carb Oikos Triple Zero Liberian Nonfat Yogurt 1 single svg - 15g protein & 7g carb :ratio, KETO Friendly Dairy Snack 1 single svg - 15g protein & 2g carb :ratio Protein 1 single svg - 25g protein & 8g carb Two Good Lowfat Liberian Yogurt, [place], Lower Sugar - 12g protein & 2g carb Yoplait Protein 1 single svg 15g protein & 5g carb Dairy Free - [place] unsweetened Liberian almond/soy 15g protein & 3g carb Dairy Free - True Goodness by [facility] coconut-based yogurt alternative 1 g protein 1 [...] Cream Cheese 1.7g protein & 1.2g carb [employer] Farms whipped Liberian cream cheese (WM) 2 T 3g protein 2g carb Feta 4g protein & 1.2g carb Mozzarella 6.3g protein & 0.6g carb Parmesan 10g protein & 0.9g carb Malagasy 7.6g protein & 1.5g carb Cottage Cheese 1/2 c Breakstone 2% 13g protein 7g carb Nandini 2% 13g protein 5 g carb Good Culture 2% 14g protein 3g carb Patel s Low Fat 12g protein & 4g carb Legumes Lentils cup 9g protein & 20g carb Mcdonald beans cup 7g protein & 20g carb Kidney, Black, Cooper, Cannellini beans cup 8g protein & 20g carb Chickpeas 1/2 c 6g protein & 15g carb Soybeans 1/2 c 14g complete protein & 8.5g carb [place] milk, unsweetened 8 oz 1g protein & 2g carb Soy milk 8 oz 3.5g protein & 1.6g carb Tofu 1/2 cup 10g protein & 2.3g carb Peanut butter, natural 2 Tbsp 7-8g protein & 4g net carbs, 190 calories PB2 powder 2 Tbsp 6g protein & 5g carb Nuts and Seeds per oz Almonds - 5.9g protein & 6.1g carb Sapphire Nuts - 4.0g protein & 3.4g carb [...] Seeds - 6.9g protein & 5g carb [place] Seeds - 5.8g protein & 5.6g carb Walnuts - 4.3g protein & 3.8g carb Edamame Beans (soybean) snack 1 pack 11 gm complete protein 2 carb 5 (FIVE) gram carb vegetable options 1 cup raw OR cup cooked: Asparagus Hernandez sprouts Beets Broccoli Brussel sprouts Cabbage Carrots Cauliflower Celery [place] Eggplant Green beans Lettuce Peppers Snap peas [...] High Protein Snack Ideas 1. Jerky 2. [place] mix without dried fruit 3. [place] roll-ups 4. Liberian yogurt 5. Veggies and yogurt dip 6. Tuna 7. Hard-boiled eggs 8. Peanut butter with celery 9. Cheese slices/ Cheese Stick 10. Handful of almonds, peanuts or walnuts 11. Cottage Cheese 12. Beef sticks 13. Protein bars 14. Canned [place] 15. Pumpkin seeds 16. Nut butter 17. Protein shake or protein bar 18. Avocado and chicken salad 19. Egg muffins 20. Leftover protein or lunch meat 21. 1/2 c blended cottage cheese or Liberian yogurt with dry ranch/Mrs. 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 No distress. Results: recent labs reviewed with the patient. Outside labs: 12/27/2023 [facility] CBC WNL; CMP WNL; Hgba1c 5.0; [...] mg daily 3. Stress incontinence - ICD9: [id number], ICD10: N39.3 - Whole food balanced protein [...] that continued use is off label for fpc management of weight control. The patient is [...] Level: 4 - Moderate [facility] NoteHNO ID: [id number] Author: ROBYN WARNER APRN.CNP Service: ? 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 Physical Exam Constitu (more content not included)...[facility]03-10-2025 Evaluation note* Diagnosis Onset Date Resolution Status Admit Date Right hamstring injury acute [facility] 2024 1:43pm Right hamstring injury acute [facility] 2024 3:21pm Tear of right hamstring acute [facility] 2024 3:21pm [facility] Work Phone: 1(523) 967-850703-10-2025 Evaluation note* Diagnosis Onset Date Resolution Status Admit Date Right hamstring injury acute [facility] 2024 1:43pm Right hamstring injury acute [facility] 2024 3:21pm Tear of right hamstring acute [facility] 2024 3:21pm Left carpal tunnel syndrome acute September 26, 2024 8:47am [facility] Work Phone: 1(800) 673-285602-06-2025 Instructions* Patient Instructions* Robyn Warner APRN.PICK AND SHOVEL WORKER - 07/03/2024 3:11 PM EST The Role of Exercise in Weight Management No one can deny the psychological and physical benefits of exercise. Regular physical exercise aidsin stress reduction, blood sugar control, cholesterol reduction, and improved sleep. It s also beneficial for weight control. both aerobic and strength training is beneficial for weight control. The ACSM ([place] [employer]) advises 200-300 minutes [...] is beneficial for weight control. The ACSM ([place] [employer]) advises 200-300 minutes of moderate-intensity exercise to lose weight and sustain the loss.Moderate-intensity exercises include brisk walking, jogging, using a rowing machine, or doing a 50-60 minute dance class. 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 Stress incontinence - ICD9: [id number], ICD10: N39.3 - Whole food balanced protein [...] Level: 4 - Moderate [facility]25 NoteHNO ID: [id number] Author: ROBYN WARNER APRN.CNP Service: ? Author [...] and granola S - none D - 4370-3639 protein and veg and small carb - potato/pasta/corn/rice No dessert S - rare - popcorn or ice cream Fluids: water Bedtime - 7182-2413 Eating Disorder binge eating Dietary changes: B [...] reviewed with the patient. Outside labs: 12/27/2023 [facility] CBC WNL; CMP WNL; Hgba1c 5.0; Total Cho (more content not included)...[facility]01-14-2025 [facility] Medical Records Department [address] [facility] [place] [address] History Physical Exam 06/10/24 0717 MR#: [id number] Acct: [id number] Name: DO OLSON Rep #: [id number] : 1980 43 From: Eulogio Mello DO PCP: KYRA Riddle Status:REG [facility] Location: [place] [address] History and Physical Date of Admission: 06/10/24 [facility] [address] [place] [address] OFFICE VISIT Date of Service: 03/14/24 MR#: [id number] Acct: [id number] Name: DO OLSON Rep #: [id number] : 1980 Provider: Dr. Eulogio Mello DO Age/Sex: 43/F Location: [facility].LINDA Status: Signed Intake Vital Signs 12/11/2405:35 Height 5 ft 7 in Intake Visit Reasons: BL HANDS Accompanied by: Self Is patient in pain?: No Allergies No Known Allergies Allergy (Verified 03/14/24 09:19) Medications ???Medication ???Instructions ???Recorded ???Confirmed ???Type Lactobacillus 25 billion cap PO 11/29/21 03/14/24 History cell-Bifido 25 billion bvir-PXN-rjkvv capsule (Women's Probiotic) fexofenadine 180 mg tablet [...] Bilateral carpal tunnel syndrome (more content not included)...[facility]11-19-2024 Telephone encounter Note* Telephone Encounter - Liliam [...] type OB/Gynecology Robyn Warner APRN.ANMOL Wong RN [facility]11-19-2024 Miscellaneous Notes* Telephone Encounter - Liliam Wong RN - 04/15/2024 11:33 AM EST Requested Prescriptions Pending Prescriptions Disp Refills fluconazole (DIFLUCAN) 150 mg tablet 1 tablet 1 Sig: Take 1 tablet by mouth one time only for 1 dose. Recent Office Visits - This Specialty 04/09/2024 Osteoarthritis of left knee, unspecified osteoarthritis type OB/Gynecology Robyn Warner, LABORATORY TECHNOLOGIST.PICK AND SHOVEL WORKER 02/13/2024 Osteoarthritis of left knee, unspecified osteoarthritis type OB/Gynecology Robyn Warner LABORATORY TECHNOLOGIST.PICK AND SHOVEL WORKER 12/26/2023 Osteoarthritis of left knee, unspecified osteoarthritis type OB/Gynecology Robyn Warner, LABORATORY TECHNOLOGIST.PICK AND SHOVEL WORKER Liliam Wong RN documented in [facility] encounterMed[facility]11-[facility] Telephone encounter Note * Telephone Encounter - Chantal Alvarez RN - 04/15/2024 8:10 AM EST Last OV 04/09/2024. Requested Prescriptions Pending Prescriptions Disp Refills clotrimazole-betamethasone (LOTRISONE) cream 15 g 0 Sig: Apply 1 application to affected area two times a day. Chantal Alvarez RN [facility]11-19-2024 Miscellaneous Notes* Telephone Encounter - Chantal Alvarez RN - 04/15/2024 8:10 AM EST Last OV 04/09/2024. Requested Prescriptions Pending Prescriptions Disp Refills clotrimazole-betamethasone (LOTRISONE) cream 15 g 0 Sig: Apply 1 application to affected area two times a day. Chantal Alvarez RN documented in this encounterMedina Hospital11-13-2024 Instructions* Patient Instructions* Robyn Warner APRN.[facility] - 04/09/2024 12:18 PM EST Try [...] oz is 28 gm protein Beef, Chicken, [place], Pork, Eli 1 oz 7g Fish, Tuna [...] protein & 2 carb Protein AND carbs Beef/[place] Jerky 1 oz dried 10-15g protein - [...] oz - 8g protein & 12g carb Liberian yogurt Full Fat Liberian Yogurt 1 cup - 20.4g protein & 9.1g carb 2% Liberian Yogurt 1 cup - 22.7g protein & 9.1g carb 0% (fat-free) Liberian Yogurt - 1 cup 24g protein & 9.3g carb Aldi Protein Liberian yogurt single svg - 15g protein & 7g carb Chobani Zero Sugar single svg: - 12g protein & 5g carb Dannon Liberian Light + Fit 1 single svg - 12g protein & 9g carb Oikos Pro single svg - 20g protein & 8g carb Oikos Triple Zero Liberian Nonfat Yogurt 1 single svg - 15g protein & 7g carb :ratio, KETO Friendly Dairy Snack 1 single svg - 15g protein & 2g carb :ratio Protein 1 single svg - 25g protein & 8g carb Two Good Lowfat Liberian Yogurt, [place], Lower Sugar - 12g protein & 2g carb Yoplait Protein 1 single svg 15gm protein & 5gm carb Dairy Free - [place] unsweetened Liberian almond/soy 15 gm protein & 3 gm carb Dairy Free - True Goodness by [facility] coconut-based yogurt alternative 1 gm protein 1 gm net carb 180 phil Cheese each oz Brie 5.9g protein & 0.1g carb Cheddar 7g protein & 0.4g carb Delonte 6.7g protein & 0.7g carb Cream Cheese 1.7g protein & 1.2g carb Feta 4g protein & 1.2g carb Mozzarella 6.3g protein & 0.6g carb Parmesan 10g protein & 0.9g carb Malagasy 7.6g protein & 1.5g carb Cottage Cheese 1/2 c Breakstone 2% 13g protein 7g carb Nandini 2% 13g protein 5 g carb Good Culture 2% 14g protein 3g carb Patel s Low Fat 12g protein & 4g carb Legumes Lentils cup 9g protein & 20g carb Mcdonald beans cup 7g protein & 20g carb Kidney, Black, Cooper, Cannellini beans cup 8g protein & 20g carb Soybeans 1/2 c 14g complete protein & 8.5g carb [place] milk, unsweetened 8 oz 1g protein & 2g carb Soy milk 8 oz 3.5g protein & 1.6g carb Tofu 1/2 cup 10g protein & 2.3g carb Peanut butter, natural 2 Tbsp 7-8g protein & 4g net carbs, 190 calories PB2 powder 2 Tbsp 6g protein & 5g carb Nuts and Seeds per oz Almonds - 5.9g protein & 6.1g carb Sapphire Nuts - 4.0g protein & 3.4g carb [...] Seeds - 6.9g protein & 5g carb [place] Seeds - 5.8g protein & 5.6g carb Walnuts - 4.3g protein & 3.8g carb Edamame Beans (soybean) snack 1 pack 11 gm complete protein 2 carb 5 (FIVE) gram carb vegetable options 1 cup raw OR cup cooked: Asparagus Hernandez sprouts Beets Broccoli Brussel sprouts Cabbage Carrots Cauliflower Celery [place] Eggplant Green beans Lettuce Peppers Snap peas [...] High Protein Snack Ideas 1. Jerky 2. [place] mix without dried fruit 3. [place] roll-ups 4. Liberian yogurt 5. Veggies and yogurt dip 6. Tuna 7. Hard-boiled eggs 8. Peanut butter with celery 9. Cheese slices/ Cheese Stick 10. Handful of almonds, peanuts or walnuts 11. Cottage Cheese 12. Beef sticks 13. Protein bars 14. Canned [place] 15. Pumpkin seeds 16. Nut butter 17. Protein shakes 18. Avocado and chicken salad 19. Egg muffins 20. Leftover protein or lunch meat 21. 1/2 c blended cottage cheese or Liberian yogurt with dry ranch/Mrs. 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 No distress. Results: recent labs reviewed with the patient. Outside labs: 12/27/2023 [facility] CBC WNL; CMP WNL; Hgba1c 5.0; [...] mg daily 3. Stress incontinence - ICD9: [id number], ICD10: N39.3 - Whole food balanced protein [...] Level: 4 - Moderate documented in this encounterMedina Hospital11-13-2024 NoteHNO ID: [id number] Author: ROBYN WARNER APRN.CNP Service: ? 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 Physical Exam Constitutional: She appears healthy. No distress. Results: recent labs reviewed with the patient. Outside labs: 12/27/2023 [facility] CBC WNL; CMP WNL; Hgba1c 5.0; Total Chol 159: HDL 75: LDL 74: TG 50:; TSH 0.52 9 (more content not included)...[facility]09-18-2024 Instructions* Patient Instructions* Robyn Warner APRN.[facility] - 02/13/2024 8:11 AM EDT - [...] oz is 28 gm protein Beef, Chicken, [place], Pork, Eli 1 oz 7g Fish, Tuna [...] protein & 2 carb Protein AND carbs Beef/[place] Jerky 1 oz dried 10-15g protein - [...] oz - 8g protein & 12g carb Liberian yogurt Full Fat Liberian Yogurt 1 cup - 20.4g protein & 9.1g carb 2% Liberian Yogurt 1 cup - 22.7g protein & 9.1g carb 0% (fat-free) Liberian Yogurt - 1 cup 24g protein & 9.3g carb Aldi Protein Liberian yogurt single svg - 15g protein & 7g carb Chobani Zero Sugar single svg: - 11g protein & 5g carb Dannon Light + Fit 1 single svg - 12g protein & 9g carb Oikos Pro single svg - 20g protein & 8g carb Oikos Triple Zero Liberian Nonfat Yogurt 1 single svg - 15g protein & 7g carb :ratio, KETO Friendly Dairy Snack 1 single svg - 15g protein & 2g carb :ratio Protein 1 single svg - 25g protein & 8g carb Two Good Lowfat Liberian Yogurt, [place], Lower Sugar - 12g protein & 2g carb Yoplait Protein 1 single svg 15gm protein & 5gm carb Dairy Free - [place] 15 gm protein & 4 gm carb Cheese each oz Brie 5.9g protein & 0.1g carb Cheddar Cheese 7g protein & 0.4g carb Mozzarella Cheese 6.3g protein & 0.6g carb [place] Cheese 6.7g protein & 0.7g carb Parmesan Cheese 10g protein & 0.9g carb Cream Cheese 1.7g protein & 1.2g carb Feta 4g protein & 1.2g carb Malagasy Cheese 7.6g protein & 1.5g carb Patel s Low Fat Cottage Cheese 1/2cup 12g protein & 4g carb Legumes Lentils cup 9g protein & 20g carb Mcdonald beans cup 7g protein & 20g carb Kidney, Black, Cooper, Cannellini beans cup 8g protein & 20g carb Soybeans 1/2 c 14g complete protein & 8.5g carb [place] milk, unsweetened 8 oz 1g protein & 2g carb Soy milk 8 oz 3.5g protein & 1.6g carb Tofu 1/2 cup 10g protein & 2.3g carb Peanut butter, natural 2 Tbsp 7-8g protein & 4g net carbs, 190 calories PB2 powder 2 Tbsp 6g protein & 5g carb Nuts and Seeds per oz Almonds - 5.9g protein & 6.1g carb Sapphire Nuts - 4.0g protein & 3.4g carb [...] Seeds - 6.9g protein & 5g carb [place] Seeds - 5.8g protein & 5.6g carb [...] Broccoli Brussel sprouts Cabbage Carrots Cauliflower Celery [place] Eggplant Green beans Lettuce Peppers Snap peas [...] High Protein Snack Ideas 1. Jerky 2. [place] mix without dried fruit 3. [place] roll-ups 4. Liberian yogurt 5. Veggies and yogurt dip 6. Tuna 7. Hard-boiled eggs 8. Peanut butter with celery 9. Cheese slices/ Cheese Stick 10. Handful of almonds, peanuts or walnuts 11. Cottage Cheese 12. Beef sticks 13. Protein bars 14. Canned [place] 15. Pumpkin seeds 16. Nut butter 17. [...] crushed nuts and freeze documented in this encounterMedina Hospital09-18-2024 History of Present illness Narrative* Robyn Warner [...] and granola S - none D - 4203-2610 protein and veg and small carb - potato/pasta/corn/rice No dessert S - rare - popcorn or ice cream Fluids: water Bedtime - 0796-6220 Eating Disorder binge eating Dietary changes: B [...] reviewed with the patient. Outside labs: 12/27/2023 [facility] CBC WNL; CMP WNL; Hgba1c 5.0; [...] mg daily 3. Stress incontinence - ICD9: [id number], ICD10: N39.3 - benefits of weight loss [...] Level: 4 - Moderate documented in this encounterMedina Hospital09-18-2024 NoteHNO ID: [id number] Author: ROBYN WARNER APRN.CNP Service: ? Author [...] and granola S - none D - 1708-1258 protein and veg and small carb - potato/pasta/corn/rice No dessert S - rare - popcorn or ice cream Fluids: water Bedtime - 1303-4693 Eating Disorder binge eating Dietary changes: B [...] of seizure disorder. No MAO (more content notincluded)...[facility]09-10-2024 Note* Letter - Coordinator, Mammography - 02/05/2024 6:25 AM EDT February 06, 2024 PID: [id number] Do Olson [address] [place] [address] Dear Ms. Olson, We are pleased to [...] report will be [facility] as part of your permanent medical record and are available for your continuing care. Thank you for allowing us to help in meeting your health care needs. Sincerely, Dr. Valdovinos Interpreting Radiologist [facility] (Normal over 40) [facility]09-10-2024 Miscellaneous Notes* Letter - Coordinator, Mammography - 02/05/2024 6:25 AM EDT February 06, 2024 PID: [id number] Do Olson [address] [place] [address] Dear Ms. Olson, We are pleased to [...] report will be kept on file at [facility] as part of your permanent medical record and are available for your continuing care. Thank you for allowing us to help in meeting your health care needs. Sincerely, Dr. Valdovinos Interpreting Radiologist [facility] (Normal over 40) documented in this encounterMedina Hospital09-06-2024 History of Present illness Narrative* Carolin Panda [...] PATIENT PRESENTS WITH AN IMPLANTABLE OR ATTACHED CHIEF HOSPITAL ADMINISTRATOR: No RADIOLOGY DEPARTMENT: Mammography PERIPHERAL IV DATA: Not applicable SIGNED BY: SHAY Vidales) February 01, 2024 12:52 PM documented in this encounterMedina Hospital09-06-2024 NoteHNO ID: [id number] Author: CAROLIN PANDA RT(R) Service: ? Author [...] PATIENT PRESENTS WITH AN IMPLANTABLE OR ATTACHED CHIEF HOSPITAL ADMINISTRATOR: No RADIOLOGY DEPARTMENT: Mammography PERIPHERAL IV DATA: Not applicable SIGNED BY: RT Sobeida(R) February 01, 2024 12:52 [facility]08-26-2024 Telephone encounter Note* Telephone Encounter - Liliam Wong RN - 01/21/2024 9:15 AM EDT Please file new Mamm with RJ order. Unable to link the order placed on 11/23/23. Liliam Wong RN [facility]08-26-2024 Miscellaneous Notes* Telephone Encounter - Liliam Wong RN - 01/21/2024 9:15 AM EDT Please file new Mamm with RJ order. Unable to link the order placed on 11/23/23. Liliam Wong RN * Telephone Encounter - Veronica Duff Mammo Tech - 01/21/2024 7:54 AM EDT Could we have a mammorgram order? Pt has appt with us 01/31, Thanks a million documented in this encounterMedina Hospital08-26-2024 Telephone encounter Note * Telephone Encounter - Veronica Duff Mammo Tech - 01/21/2024 7:54 AM EDT Could we have a mammorgram order? Pt has appt with us 01/31, Thanks a million [facility]2024 NoteHNO ID: [id number] Author: ROBYN WARNER APRN.PICK AND SHOVEL WORKER Service: ? Author Type: Nurse Practitioner Type: [...] lbs WEIGHT GRAPH: Diet/Nutrition overview: Awake - 5-6730 B - 0630-7 - 30 gm protein shake or granola or fruit with coffee with with flavoring syrup and sweetened creamer. S - 10-1030 pretzels or apple or veg or HB eggs L - 1200 if work - Salad or 1/2 sandwich or soup or pizza/home - protein shake and fruit or veg or yogurt and granola S - none D - 3046-3252 protein and veg and small carb - potato/pasta/corn/rice No dessert S - rare - popcorn or ice cream Fluids: water Bedtime - 3205-6562 Quality of diet: 24hr recall suggests healthy diet. Characterization of diet:Structured and cravings. Earth Science Technician of impaired eating habits:Prior to tirzepatide - [...] Onset Hypertension Mother Hypertension Father Heart Father [place] Cancer Sister melanoma Heart Maternal Grandmother COPD [...] has done the be (more content not included)...[facility]2024 History of Present illness Narrative* Robyn Warner APRN.[facility] - 12/25/2023 12:21 PM EDT Images [...] and granola S - none D - 4474-1178 protein and veg and small carb - potato/pasta/corn/rice No dessert S - rare - popcorn or ice cream Fluids: water Bedtime - 1822-6338 Quality of diet: 24hr recall suggests healthy diet. Characterization of diet:Structured and cravings. Earth Science Technician of impaired eating habits:Prior to tirzepatide - [...] Onset Hypertension Mother Hypertension Father Heart Father [place] Cancer Sister melanoma Heart Maternal Grandmother COPD [...] mg daily 3. Stress incontinence - ICD9: [id number], ICD10: N39.3 - benefits of weight loss [...] CMP, Lipids, TSH and HgbA1c faxed to [facility] -- We discussed several strategies to track [...] resistancetraining and cardiovascular exercise is the best fpc plan. An overall goal of 150-200 minutesper [...] which included preparing to see the patient, [id number] patient care, completing clinical documentation, obtaining and/or reviewing separately obtained history, performing a medically appropriate examination, counseling and educating the pat ient/family/caregiver, and ordering medications, tests, or procedures. documented in this encounterMedina Hospital2024 Instructions* Patient Instructions* Robyn Warner APRN.PICK AND SHOVEL WORKER - 12/25/2023 12:21 PM EDT Images from [...] slots. [facility] as you will not be scheduled appropriately and will need to be rescheduled. We appreciate that you have entrusted us with your health and know that we are committed to this process with you. Sincerely, Evelin Rm MD, SAMUEL GEE & Robyn Warner CNP Advanced Education from the [employer]esity [employer] Association Obesity Obesity is a disease that affects nearly one-third of the adult [place] population (approximately 60 million). The number of overweight and obese Americans has continued to increase since 1960, a trend that is not slowing down. Today, 64.5 percent of adult Americans (about 127 million) are categorized as being overweight or obese. Each year, obesity causes at least 300,000 excess deaths in the [place] and healthcare costs of [place] adults with obesity amount to approximately $100 [...] the gallbladder, breast, uterus, cervix, or ovaries https://my.[facility].org/health/diseases/48113-rvvkdn-jpkxywsitn-yuppvok-q ducation - Eat primarily whole foods. Limit [...] and granola S - none D - 5887-0222 protein and veg and small carb - potato/pasta/corn/rice No dessert S - rare - popcorn or ice cream - if you eat, add protein Protein - no carbs Egg 1 large - 6g Egg white 1 large 3.6g 3 oz is approximately the size of a deck of cards and equals 21 g protein so 4 oz is 28 gm protein Beef, Chicken, [place], Pork, Eli 1 oz 7g Fish, Tuna [...] protein & 2 carb Protein AND carbs Beef/[place] Jerky 1 oz dried 10-15g protein - [...] oz - 8g protein & 12g carb Liberian yogurt Full Fat Liberian Yogurt 1 cup - 20.4g protein & 9.1g carb 2% Liberian Yogurt 1 cup - 22.7g protein & 9.1g carb 0% (fat-free) Liberian Yogurt - 1 cup 24g protein & 9.3g carb Aldi Protein Liberian yogurt single svg - 15g protein & 7g carb Chobani Zero Sugar single svg: - 11g protein & 5g carb Dannon Light + Fit 1 single svg - 12g protein & 9g carb Oikos Pro single svg - 20g protein & 8g carb Oikos Triple Zero Liberian Nonfat Yogurt 1 single svg - 15g protein & 7g carb :ratio, KETO Friendly Dairy Snack 1 single svg - 15g protein & 2g carb :ratio Protein 1 single svg - 25g protein & 8g carb Two Good Lowfat Liberian Yogurt, [place], Lower Sugar - 12g protein & 2g [...] carb Feta 4g protein & 1.2g carb Malagasy Cheese 7.6g protein & 1.5g carb Patel s Low Fat Cottage Cheese 1/2cup 12g protein & 4g carb Legumes Lentils cup 9g protein & 20g carb Mcdonald beans cup 7g protein & 20g carb Kidney, Black, [place], Cannellini beans cup 8g protein & 20g carb Soybeans 1/2 c 14g complete protein & 8.5g carb [place] milk, unsweetened 8 oz 1g protein & 2g carb Soy milk 8 oz 3.5g protein & 1.6g carb Tofu 1/2 cup 10g protein & 2.3g carb Peanut butter, natural 2 Tbsp 7-8g protein & 4g net carbs, 190 calories PB2 powder 2 Tbsp 6g protein & 5g carb Nuts and Seeds per oz Almonds - 5.9g protein & 6.1g carb Sapphire Nuts - 4.0g protein & 3.4g carb [...] Seeds - 6.9g protein & 5g carb [place] Seeds - 5.8g protein & 5.6g carb [...] Broccoli Brussel sprouts Cabbage Carrots Cauliflower Celery [place] Eggplant Green beans Lettuce Peppers Snap peas [...] High Protein Snack Ideas 1. Jerky 2. [place] mix without dried fruit 3. [place] roll-ups 4. Liberian yogurt 5. Veggies and yogurt dip 6. Tuna 7. Hard-boiled eggs 8. Peanut butter with celery 9. Cheese slices/ Cheese Stick 10. Handful of almonds, peanuts or walnuts 11. Cottage Cheese 12. Beef sticks 13. Protein bars 14. Canned [place] 15. Pumpkin seeds 16. Nut butter 17. [...] understood. Topiramate affects body mass index, fasting jbybcuh-bs-rxarwiz ratio, and serum leptin and cortisol levels. [...] at or call local emergency services at 295. What other information should I know? Keep all appointments with your doctor and the laboratory. Do not let anyone else take your medication. Topiramate use needs to be monitored closely. Prescriptions may be refilled only a limited number of times. Keep a written list of all of your prescription and nonprescription (cjhb-ols-vsniojc) medicines, in addition to vitamins, minerals, or [...] for a missed one. Sources Pubmed Health: http://www.ncbi.nlm.nih.gov/pubmedhealth/VYB1492029/ Drugs.com http://www.drugs.com/pro/topiramate.html METFORMIN Dosing -- Begin Metformin [...] (nih.gov) Is metformin a wonder drug? - [facility] Common side effects of this medication include [...] FOR YOUR WEIGHT LOSS PLAN Per updated [place] state rules, initially, a one month supply [...] aware of the following statements per the [facility] pharmacy board rules. 1. Timely refills are [...] at or call local emergency services at 955. What other information should I know? Keep all appointments with your doctor and the laboratory. Do not let anyone else take your medication. Phentermine is a controlled substance. It is FDA approved for up to 3 months. Prescriptions may be refilled only a limited number of times. Keep a written list of all of your prescription and nonprescription (zgqc-jhb-xgejnrj) medicines, in addition to vitamins, minerals, or [...] make up for a missed one. Sources [facility] Consumer Medication Info: http://www.ncbi.nlm.nih.gov/pubmedhealth/DYM4122011/ AMA patient handouts: http://www.amaassn.org/ama1/pub/upload/mm/433/phrxsurgery.pdf Drugs.com: http://www.drugs.com/pro/phentermine.html I [...] water to avoid this. documented in this encounterMedina Hospital06-28-2024 Instructions* Patient Instructions* Robyn Warner APRN.[facility] - 11/23/2023 7:29 AM EDT How [...] agents from your environment. 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 Added automatically from request for surgery [id number] Last Assessment & Plan: fib Gestational diabetes PVC (premature ventricular contraction) PAST SURGICAL HISTORY Procedure Laterality Date ESSURE EXT HYSTERECTOMY,W/PARTIAL VAGINECTO 2016 Ovaries bilaterally intact EXTRACTION, ERUPTED TOOTH OR EXPOSED ROOT (ELEVATION AND/OR FORCEPS REMOVAL) wisdom teeth IMPLANTS breast FAMILY HISTORY Problem Relation Age of Onset Hypertension Mother Hypertension Father Heart Father [place] Cancer Sister melanoma Heart Maternal Grandmother COPD [...] external genitalia normal, normal Bartholin's glands, urethra, [place]owi's glands, no vulvar lesions, physiologic discharge present, [...] exams reviewed. 2. Stress incontinence - ICD9: [id number], ICD10: N39.3 - Discussed Kegel exercises and given written instruction. 3. History of obesity - ICD9: V12.29, ICD10: Z86.39 - Class 1 obesity with BMI 33.4 - 56 lb weight loss with Mounjaro prescribed by PCP, paying [id number]. Questions about maintenance medications that are less expensive 4) Contraception: hysterectomy. . 5) STD screening: Declined STD check. 6) Follow up one year or sooner as needed Robyn Warner APRN.ANMOL documented in this encounterMedina Hospital06-19-2024 Telephone encounter Note * Telephone Encounter - Carolyn Dumas APRN.CNP - 11/14/2023 9:34 AM EDT Refill sent. Recommend appointment if itching persists. Carolyn Dumas APRN.CNP [facility]06-19-2024 Miscellaneous Notes* Telephone Encounter - Carolyn Dumas APRN.CNP - 11/14/2023 9:34 AM EDT Refill sent. Recommend appointment if itching persists. Carolyn Dumas APRN.CNP documented in this encounterMedina Hospital05-07-2024 Instructions* Patient Instructions* Robyn Warner APRN.CNP - [...] health-related concerns, consult your physician or other health-senior resident care director. Being sexually active contributes to physical and [...] Diana Davey, PhD, and Eulogio Smith, PhD ([employer], 2009) Two sex therapists give guidance on evaluating your sexual history, exploring your body through touch, overcoming fear of orgasm, exploring ways to trigger orgasm, and more Reclaiming Desire: 4 Valinda to Finding Your Lost Libido Jovanny Vivar MD, and Cookie Marie, PhD ([employer], 2004) Practical advice for the woman who has lost her sex drive and wants to find it again. When Sex Isn t Good: Stories & Solutions of Women With Sexual Dysfunction April Nava EdD, and Debra Vivar (Yobani Vivar MD, center medical specialist) (iUniverse, 2007) A profile of a variety of women s sexual health issues written so that readers can learn from the experiences of others Below are other useful resources. The first few list reputable websites that sell lubricants, dilators, and videos: www.[employer]co[employer] Medical www.Pigeonly www.[employer].OncoSec Medical www.Axentis SoftwareprOrteq.OncoSec Medical www.M-KOPA www.Epuls.OncoSec Medical www.aasect.org [employer] Association of Sexuality Educators, Counselors, and Therapists Nonprofit professional association of sex educators, sex counselors, and sex therapists. You can search its website for a list of therapists in your area www.Pivotology.OncoSec Medical Also lists certified sexual therapists http://isswsh.org International Society for the Study of Women s Sexual Health Professional association website featuring an extensive directory of books on female sexual health, including many for lay readers. Also provides a searchable directory of sex therapists by geographic area. Www.VeruTEK TechnologiestitGPal.org The [facility] HospitalWebsite of this pioneering sexuality and research center at [facility] features collections of podcasts ( Subblime and Conversations About Sex Research ), some of which address sex and menopause. And remember that your brain is your most powerful sexual organ. With the right attitude about yoursexuality and some responsible choices about your health, your body can give you pleasure for yearsand years. Take care of it and enjoy! Elvi perez documented in this encounter[facility]ina [facility]05-[facility] History of Present illness Narrative* Robyn Warner [...] PCP ordered hormone levels - 09/26/2023 labs [facility] FSH, LH, estradiol - not postmenopausal. Slightly decreased testosterone: sex-binding hormone normal. 01/2023 normal TSH. Vit D and CBC. OB History T0 L2 SAB0 IAB0 Ectopic0 Multiple0 Live Births0 Precipitation Equipment Tender History LMP: 02/25/2017, Hysterectomy Age at Menarche: Age at First : Age at Menopause: Precipitation Equipment Tender History Comments: Sexual Activity: Yes; Male; hysterectomy Contraception: Surgical PAST MEDICAL HISTORY Diagnosis Date Gestational diabetes PVC (premature ventricular contraction) PAST SURGICAL HISTORY Procedure Laterality Date ESSURE EXT HYSTERECTOMY,W/PARTIAL VAGINECTO 2016 Ovaries bilaterally intact EXTRACTION, ERUPTED TOOTH OR EXPOSED ROOT (ELEVATION AND/OR FORCEPS REMOVAL) wisdom teeth IMPLANTS breast FAMILY HISTORY Problem Relation Age of Onset Hypertension Mother Hypertension Father Heart Father [place] Cancer Sister melanoma Heart Maternal Grandmother COPD [...] CBC. - Discussed sleep hygiene. Robyn Warner APRN.PICK AND SHOVEL WORKER I spent a total of 25 minutes on the date of the service which included preparing to see the patient, [id number] patient care, completing clinical documentation, obtaining and/or reviewing separately obtained history, performing a medically appropriate examination, counseling and educating the pat ient/family/caregiver, independently interpreting results (not separately reported), and communicating results to the patient/family/caregiver. documented in this encounterMedina Hospital08-15-2023 Miscellaneous Notes* Telephone Encounter - Meenu Plascencia LPN - 01/09/2023 7:33 AM EDT Order signed and faxed to [facility]. Meenu Plascencia LPN * Telephone Encounter - Liliam Wong RN - 01/08/2023 10:07 AM EDT [facility] radiology order on AG's desk to sign. documented in this encounterMedina Hospital12-07-2022 History of Present illness Narrative* Robyn Warner APRN.ANMOL - 05/03/2022 7:22 AM EST Vending Machine Filler offered: Patient declines. Do Olson is a 41 year old female who presents for intermittent burning and itching mostly at vaginal opening for about 5 weeks. Symptoms on and off for at least a year - she self-treated for yeast. Has a bottle of Diflucan from previous community resource officer that she uses. States had hysterectomy for [...] external genitalia normal, normal Bartholin's glands, urethra, Monowi's glands, no vulvar lesions, small amount white [...] Level: 4 - Moderate documented in this encounterMedina Hospital12-01-2022 Miscellaneous Notes* Telephone Encounter - Desi Chavez [...] problems. Meenu Plascencia LPN documented in this encounterMedina Hospital11-22-2022 Instructions* Patient Instructions* Robyn Warner APRN.ANMOL - [...] avoid scratching at night. documented in this encounterMedina Hospital11-22-2022 History of Present illness Narrative* Robyn Warner APRN.ANMOL - 04/18/2022 3:26 PM EST Do Olson [...] L2 SAB0 IAB0 Ectopic0 Multiple0 Live Births0 Precipitation Equipment Tender History LMP: 02/25/2017, Having periods Age at Menarche: Age at First : Age at Menopause: Precipitation Equipment Tender History Comments: Sexual Activity: Yes; Male; hysterectomy Contraception: Surgical PAST MEDICAL HISTORY Diagnosis Date Gestational diabetes PAST SURGICAL HISTORY Procedure Laterality Date ESSURE EXT HYSTERECTOMY,W/PARTIAL VAGINECTO 2016 Ovaries bilaterally intact EXTRACTION, ERUPTED TOOTH OR EXPOSED ROOT (ELEVATION AND/OR FORCEPS REMOVAL) wisdom teeth IMPLANTS breast FAMILY HISTORY Problem Relation Age of Onset Hypertension Mother Hypertension Father Heart Father [place] Cancer Sister melanoma Heart Maternal Grandmother COPD [...] external genitalia normal, normal Bartholin's glands, urethra, Monowi's glands, no vulvar lesions, small amount white [...] results. Follow- up as needed. Robyn Warner APRN.PICK AND SHOVEL WORKER Medical Decision Making: Problems: Low: Acute, uncomplicated illness or injury Data: Unique test(s) ordered: 2 Medical Decision Making Level: 3 - Low documented in this encounterMedina Hospital05-28-2021 History of Present illness Narrative* Shahla Castañeda MD - 10/22/2020 8:30 AM EDT POSTOPERATIVE VISIT 10/22/2020 Do Olson 1980 DOS (operation): 10/05/2020 FACILITY: [facility] PROCEDURE: Right breast open excisional biopsy BRIEF ONCOLOGIC/BREAST HISTORY: She underwent baseline screening mammogram on 08/13/2020 at the [facility] which was given a BIRADS 0 for an asymmetry in the upper right breast, posterior depth. She underwent diagnostic bilateral mammogram and targeted right breast ultrasound on 08/19/2020 at [facility] radiology which was given a BIRADS III for her mammographic asymmetry which was located atthe 2 o'clock position. There was no ultrasound correlate identified. She underwent further evaluation with bilateral breast MRI at [place] 08/24/2020 which identified a 2 x 1.1 x 1.2 cm mass at the2 o'clock position, 7 cm from the nipple and was given a BI-RADS 4A. Second look ultrasound at our [facility] revealed a 1.8 x 0.8 x 1.4 cm oval circumscribed mass at the 2:00 zone B/C position. Ultrasound-guided core needle biopsy was performed 08/27/2020. Biopsy pathology demonstrated a fibroepithelial lesion. She was treated with right breast open excisional biopsy 10/05/2020 at [facility].Surgical pathology demonstrated a fibroadenoma. At her request, [...] ultrasound- guided localization,;Surgeon: Shahla Castañeda MD; Location: [facility] Main OR; Service: General Surgery COSMETIC SURGERY HYSTERECTOMY 04/2017 [place] ENLARGE BREAST US BREAST BIOPSY RIGHT Right [...] questions. Shahla Castañeda MD Breast Surgical Oncology [facility] Office Office CC: CARE TEAM Patient Care Team: Ana Maria Baker MD as PCP - General (Internal Medicine) Robyn Bergeron RN as Patient Navigator documented in this [id number] Miscellaneous Notes* Assessment & Plan Note - [...] No acute complaints today documented in this [id number] History of Present illness Narrative* Ana Maria [...] Patient wasthen referred to breast clinic in [place] where Dr. Castañeda performed biopsy on 08/27/2020. [...] BIOPSY Right 08/27/2020 COSMETIC SURGERY HYSTERECTOMY 04/2017 [place] ENLARGE BREAST US BREAST BIOPSY RIGHT Right [...] Ana Maria Baker MD documented in this [id number] History of Present illness Narrative* Shahla Castañeda MD - 09/15/2020 8:00 AM EDT Date of Service: 09/15/20 Patient Name: Do Olson MR #: [id number] : 1980 Physicians: Ana Maria Baker MD [...] baseline screening mammogram on 08/13/2020 at the [facility] which was given a BIRADS 0 for an asymmetry in the upper right breast, posterior depth. She underwent diagnostic bilateral mammogram and targeted right breast ultrasound on 08/19/2020 at [facility] radiology which was given a BIRADS III for her mammographic asymmetry which was located atthe 2 o'clock position. There was no ultrasound correlate identified. She underwent further evaluation with bilateral breast MRI at [place] 08/24/2020 which identified a 2 x 1.1 [...] demonstrated a fibroepithelial lesion. BREAST CANCER RISK FACTORS/ACID BLOWER Hx: Oral Control: Yes, in past Hormone [...] Procedure Laterality Date COSMETIC SURGERY HYSTERECTOMY 04/2017 [place] ENLARGE BREAST US BREAST BIOPSY RIGHT Right [...] further surgery or procedures. 6. We discussed [facility]'s preoperative COVID-19 testing policy. She understands [...] minutes on this encounter today which includes bygp-by-zdhg time with the patient, time reviewing the chart, and time spent documenting the encounter. It is always a privilege to take care of your patients. Please do not hesitate to call me with any questions. Shahla Castañeda MD Breast Surgical Oncology [facility] Office Office CC: Patient Care Team: Ana Maria Baker MD as PCP - General (Internal Medicine) Robyn Bergeron RN as Patient Navigator documented in this [id number] History of Present illness Narrative* Cayla Hernandez, BUSINESS SYSTEMS CONSULTANT - 08/10/2020 7:00 AM EDT [facility] OUTPATIENT REH[facility] DAILY TREATMENT NOTE Today's Date [...] OTHER Notes visit 3: 7:10-7:40 Therapeutic Exercise (13608) Parameters ER doorway stretch 3x20 Intervention cane [...] Intervention biceps curls GTT x10 Manual Therapy (77860) Intervention radial head mobs x5 mins Parameters [...] pain control Cayla Hernandez PTA STATE LICENSE, [id number] documented in this [id number] History of Past illness Narrative* Problem Noted Date Resolved Date Pain in right shoulder 06/10/2015 9 Overview: Been having it for the past 3 months. When she lifts her shoulder above 90 is starts to hurt her. She is active in the gym. At least 3 days a week does the elliptical or treadmill, libyan twist etc. Did not lift anything and not injury. But is not very sure about the that. Last Assessment & Plan: Been having it for the past 3 months. When she lifts her shoulder above 90 is starts to hurt her. She is active in the gym. At least 3 days a week does the elliptical or treadmill, libyan twist etc. Did not lift anything and not injury. But is not very sure about the that. documented as of this encounter (statuses as of 04/18/2022) [facility] of Past illness Narrative* Problem Noted Date Resolved Date Pain in right shoulder 06/10/2015 9 Overview: Been having it for the past 3 months. When she lifts her shoulder above 90 is starts to hurt her. She is active in the gym. At least 3 days a week does the elliptical or treadmill, libyan twist etc. Did not lift anything and not injury. But is not very sure about the that. Last Assessment & Plan: Been having it for the past 3 months. When she lifts her shoulder above 90 is starts to hurt her. She is active in the gym. At least 3 days a week does the elliptical or treadmill, libyan twist etc. Did not lift anything and not injury. But is not very sure about the that. documented as of this encounter (statuses as of 04/27/2022) [facility] History of Past illness Narrative* Problem Noted Date Resolved Date Pain in right shoulder 06/10/2015 9 Overview: Been having it for the past 3 months. When she lifts her shoulder above 90 is starts to hurt her. She is active in the gym. At least 3 days a week does the elliptical or treadmill, libyan twist etc. Did not lift anything and not injury. But is not very sure about the that. Last Assessment & Plan: Been having it for the past 3 months. When she lifts her shoulder above 90 is starts to hurt her. She is active in the gym. At least 3 days a week does the elliptical or treadmill, libyan twist etc. Did not lift anything and not injury. But is not very sure about the that. documented as of this encounter (statuses as of 05/03/2022) [facility] History of Past illness Narrative* Problem Noted Date Diagnosed Date Resolved Date Pain in right shoulder 06/10/201509/18 Overview: Been having it for the past 3 months. When she lifts her shoulder above 90 is starts to hurt her. She is active in the gym. At least 3 days a week does the elliptical or treadmill, libyan twist etc. Did not lift anything and not injury. But is not very sure about the that. Last Assessment & Plan: Been having it for the past 3 months. When she lifts her shoulder above 90 is starts to hurt her. She is active in the gym. At least 3 days a week does the elliptical or treadmill, libyan twist etc. Did not lift anything and not injury. But is not very sure about the that. documented as of this encounter (statuses as of 01/09/2023) [facility]* Diagnosis Neoplasm of uncertain behavior of [...] of genital organs [facility] Occupational exposure to COVID-19 virus- Primary [facility] Diagnosis Onset Date Resolution Status Left knee pain acute Back pain acute Segmental and somatic dysfunction of lumbar region acute Segmental and somatic dysfunction of pelvic region acute Segmental and somatic dysfunction of thoracic region acute [facility] Work Phone: Evaluation note* Diagnosis Onset Date Resolution Status Back pain acute Segmental and somatic dysfunction of lumbar region acute Segmental and somatic dysfunction of pelvic region acute Segmental and somatic dysfunction of thoracic region acute Left knee pain acute Osteoarthritis of left knee noneactive Gastroenteritis acute Anxiety acute Preventative health care acu te [facility] Work Phone: evaluation note* Diagnosis Onset Date Resolution Status Left knee pain acute Osteoarthritis of left knee noneactive Gastroenteritis acute Anxiety acute Preventative health care acu te Palpitations noneactive Left knee pain acute Osteoarthritis of left knee noneactive [facility] Work Phone: Evaluation note* Diagnosis Onset Date Resolution Status Gastroenteritis acute Anxiety acute Preventative health care acu te Palpitations noneactive Left knee pain acute Osteoarthritis of left knee noneactive [facility] Work Phone: Evaluation note* Diagnosis Vaginal discharge- Primary Leukorrhea, not specified as infective Vagina itching Pruritus of genital organs documented in this encounter [facility] note* Diagnosis Vulvovaginal itching- Primary Pruritus of genital organs documented in this encounter [facility] note* Diagnosis Onset Date Resolution Status Obesity (BMI 30.0-34.9) acut e Anxiety chronic [facility] Work Phone: Evaluation noteNo assessment information available [facility] Work Phone: evaluation note* Diagnosis Onset Date Resolution Status Left knee pain acute [facility] Work Phone: evaluation note* Diagnosis Onset Date Resolution Status Left knee pain acute Accident in home acute Puncture wound of foot, left acute Former smoker chronic [facility] Work Phone: Evaluation note* Diagnosis Vaginal dryness- Primary Other specified symptom associated with female genital organs Low libido Decreased libido Malaise and fatigue Other malaise and fatigue documented in this encounter [facility] note* Diagnosis Vulvovaginal itching Pruritus of genital organs documented in this encounter [facility] note* Diagnosis Encounter for gynecological examination (general) (routine) without abnormal findings- Primary Stress incontinence Female stress incontinence Encounter for screening mammogram for breast cancer Heterogeneously dense tissue of both breasts on mammography History of obesity Personal history of other specified diseases documented in this encounter [facility] note* Diagnosis Osteoarthritis of left knee, unspecified [...] obesity in adulthood documented in this encounter [facility] note* Diagnosis Encounter for screening mammogram for malignant neoplasm of breast- Primary Other screening mammogram documented in this encounter [facility] note* Diagnosis Encounter for screening mammogram for malignant neoplasm of breast Other screening mammogram documented in this encounter [facility] note* Diagnosis Osteoarthritis of left knee, unspecified osteoarthritis type- Primary Anxiety Anxiety state, unspecified Stress incontinence Female stress incontinence History of gestational diabetes Personal history of gestational diabetes Binge-eating disorder, in full remission, mild History of obesity Personal history of other specified diseases documented in this encounter [facility] note* Diagnosis Osteoarthritis of left knee, unspecified osteoarthritis type- Primary Anxiety Anxiety state, unspecified Stress incontinence Female stress incontinence History of gestational diabetes Personal history of gestational diabetes Binge-eating disorder, in full remission, mild History of obesity Personal history of other specified diseases documented in this encounter [facility] note* Diagnosis Vulvovaginal itching Pruritus of genital organs documented in this encounter [facility] note* Diagnosis Osteoarthritis of left knee, unspecified osteoarthritis type- Primary Anxiety Anxiety state, unspecified Stress incontinence Female stress incontinence History of gestational diabetes Personal history of gestational diabetes Binge-eating disorder, in full remission, mild History of obesity Personal history of other specified diseases documented in this encounter [facility] note* Diagnosis Osteoarthritis of left knee, unspecified osteoarthritis type- Primary Anxiety Anxiety state, unspecified Stress incontinence Female stress incontinence History of gestational diabetes Personal history of gestational diabetes Binge-eating disorder, in full remission, mild History of obesity Personal history of other specified diseases documented in this encounter [facility] note* Diagnosis Osteoarthritis of left knee, unspecified osteoarthritis type- Primary Anxiety Anxiety state, unspecified History of gestational diabetes Personal history of gestational diabetes Binge-eating disorder, in full remission, mild Encounter for long-term (current) use of medications Encounter for long-term (current) use of other medications History of obesity Personal history of other specified diseases documented in this encounter [facility] for referral (narrative)* Diagnostic Procedure Only (Routine) [...] MAMMOGRAPHY BI 2-VIEW BREAST INC Robyn Snell APRN.PICK AND SHOVEL WORKER [address] [place] [address] [facility] [address] [place] [phone] Referral ID Status Reason Start Date Expiration Date Visits Requested Visits Authorized [id number] Pending Review Auto-Generat ed Referral 11/23/2023 12/22/2024 1 [facility] Diagnostic Procedure Only (Routine) - Authorized Specialty Diagnoses / Procedures Referred By aJ scott Referred To Contact [facility] Diagnoses Encounter for screening mammogram for malignant neoplasm of breast Procedures TAMIKO SCREENING W RJ SCREENING DIGITAL BREAST TOMOSYNTHESIS BI SCREENING MAMMOGRAPHY BI 2-VIEW BREAST INC Robyn Snell APRN.PICK AND SHOVEL WORKER [address] [place] [address] [facility] [address] [place] [phone] Referral ID Status Reason Start Date Expiration Date Visits Requested Visits Authorized [id number] Authorized Auto-Generat ed Referral 01/21/2024 02/19/2025 1 1 [facility]No reason for referral information availableWUniversity [facility] Work Phone: Reason for visit Narrative* Diagnostic Procedure Only (Routine) - Closed Specialty Diagnoses / Procedures Referred By Ja scott Referred To Contact [facility] Diagnoses Encounter for screening mammogram for malignant neoplasm of breast Procedures TAMIKO SCREENING W RJ SCREENING DIGITAL BREAST TOMOSYNTHESIS BI SCREENING MAMMOGRAPHY BI 2-VIEW BREAST INC Robyn Snell APRN.PICK AND SHOVEL WORKER [address] [place] [address] [facility] [address] [place] [address] Referral ID Status Reason Start Date Expiration Date V isits Requested Visits Authorized [id number] Closed Auto-Generate d Referral 01/21/2024 02/19/2025 1 1 [facility] Instructions * Patient Instructions - Cathy Salgado [...] you are older than 45 and are -Filipino or have a father or brother who got prostatecancer when he was younger than 65. When should you call for help? Watch closely for changes in your health, and be sure to contact your doctor if you have any problems or symptoms that concern you. Where can you learn more? Log into your personal health record on [email or web address] and enter P072 in the Education box to learn more about Well Visit, Ages 18 to 50: Care Instructions. Current as of: October 10, 2016 Content Version: 11.6 5924-4110 [employer]. Care instructions adapted under license by your healthcare professional. If you have questions about a medical condition or this instruction, always ask your healthcare professional. [employer] disclaims any warranty or liability for your [...] Tdap is especially important for health director of career services and anyone having close contact with a [...] for Disease Control and Prevention (CDC): Call (9-646-DXW-INFO) or Visit CDC's website at www.cdc.gov/vaccines Vaccine Information Statement (Interim) Tdap Vaccine (07/21/14) 42 U.S[place]C. 300aa-26 Department of Health and Human Services Centers for Disease Control and Prevention Many Vaccine Information Statements are available in [place]men and other languages. See www.immunize.org/vis. Muchas hojas de informaci n sobre vacunas est n disponibles en espa ol y en otros idiomas. Visite www.immunize.org/vis. Care instructions adapted under license by your healthcare professional. If you have questions about a medical condition or this instruction, always ask your healthcare professional. [employer] disclaims any warranty or liability for your [...] Most normal results will be available through [employer] however if abnormal, you will be notified. [...] look into their status. Customer Service/Billing Questions: [phone] [employer] Assistance: [phone] or [phone] Financial Assistance: [phone] or [phone] Body Mass Index: Care Instructions Your Care [...] Log into your personal health record on [email or web address] and enter S176 in the Education box to learn more about Body Mass Index: Care Instructions. Current as of: May 07, 2019 Content Version: 12.6 [employer]. Care instructions adapted under license by your healthcare professional. If you have questions about a medical condition or this instruction, always ask your healthcare professional. [employer] disclaims any warranty or liability for your [...] about seeing a registered dietitian or an consumer education specialist. It can be a big challenge [...] healthy changes in your diet. ? An consumer education specialist or personalized living assistant can help you develop a safe and [...] Log into your personal health record on [email or web address] and enter U357 in the Education box to learn more about Starting a Weight Loss Plan: Care Instructions. Current as of: May 07, 2019 Content Version: 12.6 [employer]. Care instructions adapted under license by your healthcare professional. If you have questions about a medical condition or this instruction, always ask your healthcare professional. [employer] disclaims any warranty or liability for your use of this information. documented in this encounter* Patient Instructions* Shahla Castañeda MD - 08/26/2020 9:15 AM EDT It was a pleasure to see you today. We have scheduled you for a right breast biopsy. I will call you with your biopsy result. At [facility], we believe in information transparency. If [...] FoundDocuments on File Type Date Recorded Patient Shirt Folder Expl anation Advance Directives and Living Will Documents on File Type Date Recorded Patient Shirt Folder Expl anation Advance Directives and Living Will Documents on File Type Date Recorded Patient Shirt Folder Expl anation Advance Directives and Livin g Will 07/20/2020 12:15 PM Documents on File Type Date Recorded Patient Shirt Folder Expl anation Advance Directives and Livin g Will 07/20/2020 12:15 PM Documents on File Type Date Recorded Patient Shirt Folder Expl anation Advance Directives and Livin g Will 08/24/2020 11:24 AM Documents on File Type Date Recorded Patient Shirt Folder Expl anation Advance Directives and Livin g Will 08/24/2020 11:24 AM Documents on File Type Date Recorded Patient Shirt Folder Expl anation Advance Directives and Livin g Will 08/27/2020 11:24 AM Documents on File Type Date Recorded Patient Shirt Folder Expl anation Advance Directives and Livin g Will 08/27/2020 11:24 AM Documents on File Type Date Recorded Patient Shirt Folder Expl anation Advance Directives and Livin g Will 10/05/2020 11:24 AM Advance Directive Response Recorded Date/ Time Living Will No May 07 017 9:21am Power of Health Advocate No May 07, 2017 9:21am Advance Directive Response Recorded Date/ Time Living Will No February 11, 2022 3:19pm Power of Health Advocate No January 3:19pm Advance Directive Response Recorded Date/ Time Living Will No March 18 11:18am Power of Health Advocate No March 18, 2023 11:18am Advance Directive Response Recorded Date/ Time Living Will No March 21 10:03am Power of Health Advocate No March 21, 2023 10:03am Advance Directive Response Recorded Date/ Time Living Will No May 20 024 11:34am Do you have a Healthcare Power of Health Advocate? 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 Chato Britton PT State License, [id number] documented in this encounter* Ana Maria Baker [...] 08/26/20 Patient Name: Do Olson MR #: [id number] : 1980 Physicians: Ana Maria Baker MD [...] baseline screening mammogram on 08/13/2020 at the [facility] which was given a BIRADS 0 for an asymmetry in the upper right breast, posterior depth. She underwent diagnostic bilateral mammogram and targeted right breast ultrasound on 08/19/2020 at [facility] radiology which was given a BIRADS III for her mammographic asymmetry which was located atthe 2 o'clock position. There was no ultrasound correlate identified. She underwent further evaluation with bilateral breast MRI at [place] 08/24/2020 which identified a 2 x 1.1 [...] personal history of cancer. BREAST CANCER RISK FACTORS/ACID BLOWER Hx: Oral Control: Yes, in past Hormone [...] Procedure Laterality Date COSMETIC SURGERY HYSTERECTOMY 04/2017 [place] ENLARGE BREAST WISDOM TOOTH EXTRACTION FMH: Family [...] questions. Shahla Castañeda MD Breast Surgical Oncology [facility] Office Office CC: Patient Care Team: Ana Maria Baker MD as PCP - General (Internal Medicine) Ana Maria Baker MD as PCP - [facility] Provider - [facility] documented in this encounter* Keily Ken [...] in good condition. Viktoriya Ken RN, BSN, [facility] Nurse Navigator [address] [facility], [address] [phone] documented in this encounter Reason for Referral Status Reason Specialty Diagnoses / Procedures Referred By Contact Referred To Contact Authorized Specialty Services Required/Patie nt's Best Interest Rehabilitation Diagnoses Lateral epicondylitis, unspecified laterality Ana Maria Baker MD [address] [facility] [address] [facility] [place] [address] [place] [address] Status Reason Specialty Diagnoses / Procedures Referred By Contact Referred To Contact Authorized Patient Preference Diagnoses Encounter for screening for malignant neoplasm of breast, unspecified screening modality Procedures Mammography Screening Bilateral Ana Maria Baker MD [address] [place] [address] [facility] [address] [place] [address] Phone: [phone] Status Reason Specialty Diagnoses / Procedures Referred By Contact Referred To Contact Authorized Radiology Diagnoses Follow-up examination of abnormal mammogram Procedures Mammography Diagnostic Bilateral Ana Maria Baker MD [address] [place] [address] Status Reason Specialty Diagnoses / Procedures Referred By Contact Referred To Contact Authorized Radiology Diagnoses Follow-up examination of abnormal mammogram Procedures MR Breast Right With Contrast Ana Maria Baker MD [address] [place] [address] [place] [phone] Status Reason Specialty Diagnoses / Procedures Referred By Contact Referred To Contact New Request Radiology Diagnoses Follow-up examination of abnormal mammogram Procedures MR Breast Bilateral With And Without Contrast Ana Maria Baker MD [address] [place] [address] Status Reason Specialty Diagnoses / Procedures Referred By Contact Referred To Contact Authorized Radiology Diagnoses Stress at home Procedures US Breast Biopsy Right Ana Maria Baker MD [address] [place] [address] Status Reason Specialty Diagnoses / Procedures Referred By Contact Referred To Contact Authorized Specialty Services Required/Patie nt's Best Interest Breast Surgery Diagnoses Follow-up examination of abnormal mammogram Ana Maria Baker MD [address] [place] [address] Shahla Castañeda MD [address] [place] [address] Status Reason Specialty Diagnoses / Procedures Referred By Contact Referred To Contact Closed Patient Preference Radiology Diagnoses Follow-up examination of abnormal mammogram Procedures MR Breast Bilateral With And Without Contrast Ana Maria Baker MD [address] [place] [address] Status Reason Specialty Diagnoses / Procedures Re ferred By Contact Referred To Contact New Request Radiology Diagnoses Mass of upper inner quadrant of right breast Procedures Mammography Stereotactic Breast Biopsy Right Shahla Castañeda MD [address] [place] [address] Status Reason Specialty Diagnoses / Procedures Referred By Contact Referred To Contact Pending Review Radiology Diagnoses Mass of upper inner quadrant of right breast Procedures US Breast Biopsy Right Shahla Castañeda MD [address] [place] [address] Status Reason Specialty Diagnoses / Procedures Referred By Contact Referred To Contact Pending Review Radiology Diagnoses Mass of upper inner quadrant of right breast Procedures US Breast Right Limited Shahla Castañeda MD [address] [place] [address] Status Reason Specialty Diagnoses / Procedures Re ferred By Contact Referred To Contact Canceled Radiology Diagnoses Mass of upper inner quadrant of right breast Procedures Mammography Stereotactic Breast Biopsy Right Shahla Castañeda MD [address] [place] [address] Status Reason Specialty Diagnoses / Procedures Referred By Contact Referred To Contact Closed Radiology Diagnoses Stress at home Procedures US Breast Biopsy Right Ana Maria Baker MD [address] [place] [address] Status Reason Specialty Diagnoses / Procedures Referred By Contact Referred To Contact Pending Review Radiology Diagnoses Stress at home Procedures Mammography Follow-up Post Clip Placement Ana Maria Baker MD [address] [place] [address] Discharge Instructions * Instructions* Radha Nair, TECHNOLOGIST [...] section and content) DATE CREATED AUTHOR 06/30/2018 [facility] DATE CREATED AUTHOR AUTHOR'S ORGANIZ ATION 07/22/2020 [facility] DATE CREATED AUTHOR AUTHOR'S ORGANIZ ATION 08/22/2020 [facility] DATE CREATED AUTHOR AUTHOR'S ORGANIZ ATION 10/19/2020 [facility] DATE CREATED AUTHOR AUTHOR'S ORGANIZ ATION 12/09/2020 [facility] DATE CREATED AUTHOR AUTHOR'S ORGANIZ ATION 01/10/2021 [facility] DATE CREATED AUTHOR AUTHOR'S ORGANIZ ATION 02/23/2021 [facility] [place] DATE CREATED AUTHOR AUTHOR'S ORGANIZ ATION 12/20/2024 [facility] DATE CREATED AUTHOR AUTHOR'S ORGANIZ ATION 12/25/2024 [facility] Reason for Visit (unrecogniz ed section and content) Reason Comments Pain L ELBOW Anxiety Weight Loss Reason Comments Physical Therapy Status Reason Specialty Diagnoses / Procedures Referred By Contact Referred To Contact Authorized Specialty Services Required/Rafaela ent's Best Interest Rehabilitation Diagnoses Lateral epicondylitis, unspecified laterality Ana Maria Baker MD [address] [address] [facility] [place] [address] [address] [place] [address] Reason Onset Date Comments Medication Refill 07/22/2020 Status Reason Specialty Diagnoses / Procedures Referred By Contact Referred To Contact Closed Patient Preference Radiology Diagnoses Follow-up examination of abnormal mammogram Procedures MR Breast Bilateral With And Without Contrast Ana Maria Baker MD [address] [place] [address] Reason Comments Initial Visit (Intake) right breast mass CAT4 Status Reason Specialty Diagnoses / Procedures Referred By Contact Referred To Contact Closed Specialty Services Required/Patien t's Best Interest Breast Surgery Diagnoses Follow-up examination of abnormal mammogram Ana Maria Baker MD [address] [place] [address] Shahla Castañeda MD [address] [place] [address] [address] [place] [address] Status Reason Specialty Diagnoses / Procedures Re ferred By Contact Referred To Contact Canceled Radiology Diagnoses Mass of upper inner quadrant of right breast Procedures Mammography Stereotactic Breast Biopsy Right Shahla Castañeda MD [address] [place] [address] [address] [place] [address] Status Reason Specialty Diagnoses / Procedures Referred By Contact Referred To Contact Closed Radiology Diagnoses Stress at home Procedures US Breast Biopsy Right Ana Maria Baker MD [address] [place] [address] Status Reason Specialty Diagnoses / Procedures Referred By Contact Referred To Contact Pending Review Radiology Diagnoses Mass of upper inner quadrant of right breast Procedures US Breast Right Limited Shahla Castañeda MD [address] [facility] [address] [place] [address] Status Reason Specialty Diagnoses / Procedures Referred By Contact Referred To Contact Pending Review Radiology Diagnoses Stress at home Procedures Mammography Follow-up Post Clip Placement Ana Maria Baker MD [address] [place] [address] Reason Comments Annual Exam Status Reason Specialty Diagnoses / Procedures Referred By Contact Referred To Contact Authorized Specialty Services Required/Rafaela ent's Best Interest Rehabilitation Diagnoses Lateral epicondylitis, unspecified laterality Ana Maria Baker MD [address] [address] [facility] [place] [address] [place], [place] [phone] Reason Comments Vaginal Problem Discharge Reason Comments Patient Question Reason Comments Vaginal Problem Reason Comments Well Woman Reason Onset Date Comments Weight Management 12/25/2023 Reason Comments Orders Reason Comments Weight Management Reason Comments Follow Up Weight Management Reason Onset Date Comments Refill Request 04/15/2024 Care Teams (unrecognized sec tion and content) Stereotype Molder Relationship Specialty Start Date End Date Ana Maria Baker MD [address] [place] [address] PCP - General Internal Medicine 05/06/20 Ana Maria Baker MD [facility] [place] [address] PCP - MARY KAY Attributed Provider - [facility] 06/27/20 Robyn Bergeron RN Patient Navigator 08/27/20 Sherry Bagley PA-C [address] [address] Physician Operations Representative Physician Operations Representative 11/25/20 Stereotype Molder Relationship Specialty Start Date End Date Ana Maria Baker MD [address] [place] [address] PCP - General Internal Medicine 05/06/20 Ana Maria Baker MD [address] [place] [id number] PCP - MARY KAY Attributed Provider - [facility] 06/27/20 Robyn Bergeron RN Patient Navigator 08/27/20 Sherry Bagley PA-C [address] [address] Physician Operations Representative Physician Operations Representative 11/25/20 Stereotype Molder Relationship Specialty Start Date End Date Ana Maria Baker MD [address] [address] PCP - General Internal Medicine 05/06/20 Ana Maria Baker MD [address] [address] PCP - MARY KAY [facility] Provider - [facility] 06/27/20 Robyn Bergeron, RN Patient Navigator 08/27/20 Sherry Bagley PA-C [address] [address] Physician Operations Representative Physician Operations Representative 11/25/20 Stereotype Molder Relationship Specialty Start Date End Date Ana Maria Baker MD [address] [place] [id number] PCP - General Internal Medicine 05/06/20 Robyn Bergeron, RN Patient Navigator 08/27/20 Sherry Bagley PA-C [address] [address] Physician Operations Representative Physician Operations Representative 11/25/20 Stereotype Molder Relationship Specialty Start Date End Date Ana Maria Baker MD [address] [place] [phone] Referring Internal Medicine 08/11/20 Stereotype Molder Relationship Specialty Start Date End Date Ana Maria Baker MD [address] [place] [id number] Referring Internal Medicine 08/11/20 Stereotype Molder Relationship Specialty Start Date End Date Ana Maria Baker MD [address] [place] [phone] Referring Internal Medicine 08/11/20 Stereotype Molder Relationship Specialty Start Date End Date Ana Maria Baker MD [address] [place] [address] Referring Internal Medicine 08/11/20 Team Status: Active Member Role Status Dates No Primary Care Physician Family Provider Active Daria GARRIDO MD Primary Care Provider Active Team Status: Inactive Member Role Status Dates Daria GARRIDO MD Primary Care Provider, Referr ing Provider Active Kartik Padgett BAG SORTER, BAG SORTER-C Attending Provider Active Team Status: Inactive Member Role Status Dates Daria GARRIDO MD Primary Care Provider Active Robyn Warner BAG SORTER, BAG SORTER-C Attending Provider Active Team Status: Active Member Role Status Dates No Primary Care Physician Family Provider Active Kartik Padgett VSC, BAG SORTER-C Primary Care Provider Active Team Status: Inactive Member Role Status Dates DALY Martinez Attending Provider, Referring Provi wali Active Kartik Padgett VSC, BAG SORTER-C Primary Care Provider Active Team Status: Inactive Member Role Status Dates Robyn Warner NP, BAG SORTER-C Attending Provider Active Dr. Daria Martines MD Primary Care Provider Active Team Status: Inactive Member Role Status Dates Kartik Padgett VSC, BAG SORTER-C Primary Care Provider, Referring Provider Active Lucero KAUFFMAN PA Attending Provider Active Team Status: Inactive Member Role Status Dates Kartik Padgett VSC, BAG SORTER-C Primary Care Provider Active Dr. Liliam Brian MD Emergency Provider Active Team Status: Active Member Role Status Dates No Primary Care Physician Family Provider Active Kartik Padgett BAG SORTER, BAG SORTER-C Primary Care Provider Active Team Status: Inactive Member Role Status Dates Kartik Padgett VSC, BAG SORTER-C Primary Care Provider, Referring Provider Active Dr. Brenton Gifford MD Attending Provider Active Team Status: Inactive Member Role Status Dates Kartik Padgett VSC, BAG SORTER-C Primary Care Provider Active Dr. Liliam Brian MD Attending Provider, Emergency Provider Active Team Status: Inactive Member Role Status Dates Dr. Brenton Gifford MD Attending Provider, Referring P rovider Active Kartik Padgett BAG SORTER, BAG SORTER-C Primary Care Provider Active Stereotype Molder Relationship Specialty Start Date End Date Kratik Padgett CNP [address] [place] [address] PCP - General Family Medicine 10/02/23 Ana Maria Baker [place] [address] Referring Internal Medicine 08/11/20 Team Status: Inactive Member Role Status Dates Jesus Manuel Burris , BAG SORTER-C Attending Provider, Referring Provider Active Kartik Padgett [facility], BAG SORTER-C Primary Care Provider Active Stereotype Molder Relationship Specialty Start Date End Date Kartik Padgett CNP [address] [place] [address] PCP - General Family Medicine 10/02/23 Ana Maria Baker [place] [address] Referring Internal Medicine 08/11/20 Stereotype Molder Relationship Specialty Start Date End Date Kartik Padgett CNP [address] [place] [address] PCP - General Family Medicine 10/02/23 Ana [place] [address] Referring Internal Medicine 08/11/20 Stereotype Molder Relationship Specialty Start Date End Date Kartik Padgett CNP [address] [place] [address] PCP - General Family Medicine 10/02/23 Ana [place] [address] Referring Internal Medicine 08/11/20 Stereotype Molder Relationship Specialty Start Date End Date Kartik Padgett CNP [address] [place] [address] PCP - General Family Medicine 10/02/23 Ana [place] [address] Referring Internal Medicine 08/11/20 Stereotype Molder Relationship Specialty Start Date End Date Kartik Padgett CNP [address] [place] [address] PCP - General Family Medicine 10/02/23 Ana [place] [address] Referring Internal Medicine 08/11/20 Stereotype Molder Relationship Specialty Start Date End Date Kartik Padgett CNP [address] [place] [address] PCP - General Family Medicine 10/02/23 Ana Maria Baker [place] [address] Referring Internal Medicine 08/11/20 Stereotype Molder Relationship Specialty Start Date End Date Kartik Padgett CNP [address] [place] [address] PCP - General Family Medicine 10/02/23 Ana [place] [address] Referring Internal Medicine 08/11/20 Stereotype Molder Relationship Specialty Start Date End Date Kartik Padgett CNP [address] [place] [address] PCP - General Family Medicine 10/02/23 Ana Maria Baker MD [address] [place] [address] Referring Internal Medicine 08/11/20 Stereotype Molder Relationship Specialty Start Date End Date Kartik Padgett CNP [address] [place] [address] PCP - General Family Medicine 10/02/23 Ana Maria Baker MD [address] [place] [address] Referring Internal Medicine 08/11/20 Stereotype Molder Relationship Specialty Start Date End Date Kartik Padgett CNP [address] [place] [address] PCP - General Family Medicine 10/02/23 Ana Maria Baker MD [address] [place] [address] Referring Internal Medicine 08/11/20 Stereotype Molder Relationship Specialty Start Date End Date Kartik Padgett CNP [address] [place] [address] PCP - General Family Medicine 10/02/23 Ana Maria Baker MD [address] [place] [address] Referring Internal Medicine 08/11/20 Stereotype Molder Relationship Specialty Start Date End Date Kartik Padgett CNP [address] [place] [address] PCP - General Family Medicine 10/02/23 Ana Maria Baker MD [address] [place] [address] Referring Internal Medicine 08/11/20 Team Status: Active Member Role Status Dates Kartik Padgett VSC, BAG SORTER-C Primary Care Provider Active Team Status: Inactive Member Role Status Dates Kartik JAMESC, BAG SORTER-C Primary Care Provider Active Start: June 10, 2024 End: June 10, 2024 Dr. Eulogio Mello DO Attending Provider Active Start: June 10, 2024 End: June 10, 2024 Dr. Eulogio Mello DO Referring Provider Active Start: June 10, 2024 End: June 10, 2024 Team Status: Active Member Role Status Dates Kartik RIDLEY, BAG SORTER-C Primary Care Provider Active Start: June 10, 2024 Dr. Eulogio Mello DO Attending Provider Active Start: June 10, 2024 Dr. Eulogio Mello DO Referring Provider Active Start: June 10, 2024 Dr. Eulogio Mello DO Other Provider Active St art: June 10, 2024 Team Status: Inactive Member Role Status Dates Kartik RIDLEY, BAG SORTER-C Primary Care Provider Active Start: August 04, 2024 End: August 04, 2024 Kartik RIDLEY, BAG SORTER-C Referring Provider Active S tart: August 04, 2024 End: August 04, 2024 KYRA Ortiz Attending Provider Active Start: August 04, 2024 End: August 04, 2024 Team Status: Inactive Member Role Status Dates Kartik RIDLEY, BAG SORTER-C Primary Care Provider Active Start: August 04, 2024 End: August 04, 2024 Dr. Dg Flores MD Attending Provider Active S tart: August 04, 2024 End: August 04, 2024 Team Status: Inactive Member Role Status Dates Kartik RIDLEY, BAG SORTER-C Primary Care Provider Active Start: August 07, 2024 End: August 07, 2024 KYRA Ortiz Attending Provider Active Start: August 07, 2024 End: August 07, 2024 KYRA Ortiz Referring Provider Active Start: August 07, 2024 End: August 07, 2024 Team Status: Inactive Member Role Status Dates Kartik RIDLEY, BAG SORTER-C Primary Care Provider Active Start: August 07, 2024 End: August 07, 2024 Kartik RIDLEY BAG SORTER-C Referring Provider Active S tart: August 07, 2024 End: August 07, 2024 KYRA Ortiz Attending Provider Active Start: August 07, 2024 End: August 07, 2024 Stereotype Molder Relationship Specialty Start Date End Date Leroy Kartik ANMOL [address] [place] [address] PCP - General Family Medicine 10/02/23 Ana Maria Baker MD Referring Internal Medicine 08/11/20 Team Status: Active Member Role/Relationship Status Dates Kartik RIDLEY, BAG SORTER-C Primary Care Provider Active Team Status: Inactive Member Role/Relationship Status Dates Kartik RIDLEY, BAG SORTER-C Primary Care Provider Active Start: August 04, 2024 End: August 04, 2024 Kartik RIDLEY BAG SORTER-C Referring Provider Active S tart: August 04, 2024 End: August 04, 2024 KYRA Ortiz Attending Provider Active Start: August 04, 2024 End: August 04, 2024 Team Status: Inactive Member Role/Relationship Status Dates Kartik IRDLEY BAG SORTER-C Primary Care Provider Active Start: August 04, 2024 End: August 04, 2024 Dr. Dg Flores MD Attending Provider Active S tart: August 04, 2024 End: August 04, 2024 Team Status: Inactive Member Role/Relationship Status Dates Kartik RIDLEY BAG SORTER-C Primary Care Provider Active Start: August 07, 2024 End: August 07, 2024 KYRA Ortiz Attending Provider Active Start: August 07, 2024 End: August 07, 2024 KYRA Ortiz Referring Provider Active Start: August 07, 2024 End: August 07, 2024 Team Status: Inactive Member Role/Relationship Status Dates Kartik RIDLEY BAG SORTER-C Primary Care Provider Active Start: August 07, 2024 End: August 07, 2024 Kartik RIDLEY BAG SORTER-C Referring Provider Active S tart: August 07, 2024 End: August 07, 2024 KYRA Ortiz Attending Provider Active Start: August 07, 2024 End: August 07, 2024 Team Status: Inactive Member Role/Relationship Status Dates Kartik Padgett KHAI, BAG SORTER-C Primary Care Provider Active Start: September 26, 2024 End: September 26, 2024 Kartik Padgett KHAI, BAG SORTER-C Referring Provider Active S tart: September 26, 2024 End: September 26, 2024 Dr. Eulogio Mello DO Attending Provider Active Start: September 26, 2024 End: September 26, 2024 Team Status: Inactive Member Role/Relationship Status Dates Kartik Padgett KHAI, BAG SORTER-C Primary Care Provider Active Start: October 17, 2024 End: October 17, 2024 Dr. Daryl Peralta MD Attending Provider Active Start: October 17, 2024 End: October 17, 2024 Dr. Daryl Peralta MD Referring Provider Active Start: October 17, 2024 End: October 17, 2024 Stereotype Molder Relationship Specialty Start Date End Date Kartik Padgett CNP [address] [place] [address] PCP - General Family Medicine 10/02/23 Ana Maria Baker MD Referring Internal Medicine 08/11/20 Stereotype Molder Relationship Specialty Start Date End Date Kartik Padgett CNP [address] [place] [address] PCP - General Family Medicine 10/02/23 Ana Maria Baker MD Referring Internal Medicine 08/11/20 Source Comments (unrecognize d section and content) In the event this informatio n is protected by the Federal Confidentiality of Alcohol and Drug Abuse Patient Records regulations: The Federal rules restrict any use of the information to criminally investigate or prosecute any alcohol or drug abuse patient.[facility] the event this information is protected by the Federal Confidentiality of Alcohol and Drug Abuse Patient Records regulations: The Federal rules restrict any use of the information to criminally investigate or prosecute any alcohol or drug abuse patient.[facility] the event this information is protected by the Federal Confidentiality of Alcohol and Drug Abuse Patient Records regulations: The Federal rules restrict any use of the information to criminally investigate or prosecute any alcohol or drug abuse patient.[facility] the event this information is protected by the Federal Confidentiality of Alcohol and Drug Abuse Patient Records regulations: The Federal rules restrict any use of the information to criminally investigate or prosecute any alcohol or drug abuse patient.[facility] the event this information is protected by the Federal Confidentiality of Alcohol and Drug Abuse Patient Records regulations: The Federal rules restrict any use of the information to criminally investigate or prosecute any alcohol or drug abuse patient.[facility] the event this information is protected by the Federal Confidentiality of Alcohol and Drug Abuse Patient Records regulations: The Federal rules restrict any use of the information to criminally investigate or prosecute any alcohol or drug abuse patient.[facility] the event this information is protected by the Federal Confidentiality of Alcohol and Drug Abuse Patient Records regulations: The Federal rules restrict any use of the information to criminally investigate or prosecute any alcohol or drug abuse patient.[facility] the event this information is protected by the Federal Confidentiality of Alcohol and Drug Abuse Patient Records regulations: The Federal rules restrict any use of the information to criminally investigate or prosecute any alcohol or drug abuse patient.[facility] the event this information is protected by the Federal Confidentiality of Alcohol and Drug Abuse Patient Records regulations: The Federal rules restrict any use of the information to criminally investigate or prosecute any alcohol or drug abuse patient.[facility] the event this information is protected by the Federal Confidentiality of Alcohol and Drug Abuse Patient Records regulations: The Federal rules restrict any use of the information to criminally investigate or prosecute any alcohol or drug abuse patient.[facility] the event this information is protected by the Federal Confidentiality of Alcohol and Drug Abuse Patient Records regulations: The Federal rules restrict any use of the information to criminally investigate or prosecute any alcohol or drug abuse patient.[facility] the event this information is protected by the Federal Confidentiality of Alcohol and Drug Abuse Patient Records regulations: The Federal rules restrict any use of the information to criminally investigate or prosecute any alcohol or drug abuse patient.[facility] the event this information is protected by the Federal Confidentiality of Alcohol and Drug Abuse Patient Records regulations: The Federal rules restrict any use of the information to criminally investigate or prosecute any alcohol or drug abuse patient.[facility] the event this information is protected by the Federal Confidentiality of Alcohol and Drug Abuse Patient Records regulations: The Federal rules restrict any use of the information to criminally investigate or prosecute any alcohol or drug abuse patient.[facility] the event this information is protected by the Federal Confidentiality of Alcohol and Drug Abuse Patient Records regulations: The Federal rules restrict any use of the information to criminally investigate or prosecute any alcohol or drug abuse patient.[facility] the event this information is protected by the Federal Confidentiality of Alcohol and Drug Abuse Patient Records regulations: The Federal rules restrict any use of the information to criminally investigate or prosecute any alcohol or drug abuse patient.[facility] the event this information is protected by the Federal Confidentiality of Alcohol and Drug Abuse Patient Records regulations: The Federal rules restrict any use of the information to criminally investigate or prosecute any alcohol or drug abuse patient.[facility] the event this information is protected by the Federal Confidentiality of Alcohol and Drug Abuse Patient Records regulations: The Federal rules restrict any use of the information to criminally investigate or prosecute any alcohol or drug abuse patient.[facility] HospitalIn the event this information is protected by the Federal Confidentiality of Alcohol and Drug Abuse Patient Records regulations: The Federal rules restrict any use of the information to criminally investigate or prosecute any alcohol or drug abuse patient.[facility] the event this information is protected by the Federal Confidentiality of Alcohol and Drug Abuse Patient Records regulations: The Federal rules restrict any use of the information to criminally investigate or prosecute any alcohol or drug abuse patient.[facility] HospitalIn the event this information is protected by the Federal Confidentiality of Alcohol and Drug Abuse Patient Records regulations: The Federal rules restrict any use of the information to criminally investigate or prosecute any alcohol or drug abuse patient.[facility] FOR RECORDS PERTAINING TO PATIENTS WHO ARE [...] BE BASED ON THE PRIMARY CLINICAL RECORDS. [facility] [employer] provides no warranty or guarantee of the accuracy or completeness of information in this document.
[2024-12-30 08:17] LABS: AST(SGOT) 21 U/L (<=31); Alanine Aminotransfer ALT/SGPT 16 U/L (<=34); Albumin, Serum 4.1 g/dL (3.5-5.0); Alkaline Phosphatase 67 U/L (35-104); Anion Gap 11 (5-15); BUN 13 mg/dL (4-19); BUN/Creat Ratio 17.1 RATIO (10-20); Calcium,Total 8.9 mg/dL (7.6-11.0); Carbon Dioxide 24.8 mmol/L (21.0-32.0); Chloride 106 mmol/L (98-108); Globulin 2.2 g/dL (2.2-4.2); Glucose 97 mg/dL (70-99); Potassium 4.0 mmol/L (3.3-5.1)
== END | disposition home or self-care (01) ==
PROVIDERS: PCP Nurse Practitioner Family; Referring Provider Nurse Practitioner Family; Visit Provider Nurse Practitioner Family
DX: Z79.899 Other long term (current) drug therapy (principal)
CPT/HCPCS: 36415; 80053

== ENCOUNTER → 2025-02-24 | Outpatient (CLI) | payer OTHER, SELFPAY ==
--- OUTSIDE RECORDS SUMMARY | 2024-12-19 06:56 | XMS RPT_ITS ---
Author Name Auto Generated Organization [facility] Care Team Providers Care [facility] Name Role Phone ROBYN MURRELL Attending Unavailable PADGETT, KARTIK Primary Care Unavailable ROBYN MURRELL Attending Unavailable PADGETT, KARTIK Primary Care Unavailable ROBYN MURRELL Attending Unavailable PADGETT, KARTIK Primary Care Unavailable ROBYN MURRELL Attending Unavailable PADGETT, KARTIK Primary Care Unavailable PROBLEMS DATE TYPE CONDITION / CODE ATTENDING STATUS [facility] 12/26/2023 Active Binge-eating dis order, in full remission, mild / F50.814(ICD-10) ROBYN MURRELL Active [facility] 12/26/2023 Active History of gesta tional diabetes / Z86.32(ICD-10) ROBYN MURRELL Active [facility] 12/25/2023 Active Osteoarthritis o f left knee, unspecified osteoarthritis type / M17.12(ICD-10) ROBYN MURRELL Active [facility] 11/23/2023 Active History of obesi ty / Z86.39(ICD-10) ROBYN MURRELL Active [facility] 11/23/2023 Active Stress incontine nce / N39.3(ICD-10) ROBYN MURRELL Active [facility] 11/23/2023 Active Anxiety / F41.9(ICD-10) ROBYN MURRELL Ac tive [facility] 12/19/2024 Active Encounter for lo ng-term (current) use of medications / Z79.899(ICD-10) ROBYN MURRELL Active [facility] PROCEDURES No Procedure Records Found RESULTS CNPN Observed: 01/14/2025 12:00 AM Status: COMPLETED Source: [facility] Telephone (OBGYWM) TOMMYDO Elias Adalberto ([id number]) 1980 F Date Time Provider Department 01/14/25 ROBYN MURRELL During your visit today, we recorded the following information about you: Linwood Alvarez RN 01/14/2025 11:51 AM Signed Lab results from [facility] collected on 12/30/24 on [employer] desk for review. Linwood Alvarez RN Allergies As of Date: 01/14/2025 Noted Allergy Reaction AMOXACILLIN (AMOXICILLIN) 04/09/2024 2 - Rash Date Reviewed: 12/19/2024 Reviewed by: Robyn Murrell APRN.ORDER TAKERS SUPERVISOR - Fully Assessed Reason for Visit: Outside Labs Results [[id number]] Prescriptions as of 01/14/2025 - Phentermine HCl 37.5 mg tablet Take 1 tablet by mouth daily before breakfast for 90 days. Patient should start on January 04, 2025. - MOUNJARO 15 mg/0.5 mL pen injector Inject 15 mg subcutaneously one time a week. - OTC PRODUCT Multivitamin - topiramate (TOPAMAX) 25 mg tablet Take 1 tablet by mouth two times a day. - COLLAGEN MISC - metFORMIN ER (GLUCOPHAGE XR) 500 mg 24 hr tablet Take 1 tablet by mouth two times a day. Patient should start on August 11, 2024. - clotrimazole-betamethasone (LOTRISONE) cream Apply 1 application to affected area two times a day. - FLUoxetine (PROZAC) 20 mg capsule Take 20 mg by mouth once daily. - traZODone (DESYREL) 50 mg tablet Take 100 mg by mouth daily at bedtime. 100 mg daily Problem List As Of Date 01/14/2025 Noted Resolved Pain in right shoulder [M25.511] 06/10/2015 09/18/2018 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 [D24.1] 09/15/2020 Anxiety [F41.9] 11/23/2023 Stress incontinence [N39.3] 11/23/2023 History of obesity [Z86.39] 11/23/2023 Osteoarthritis of left knee [M17.12] 12/25/2023 History of gestational diabetes [Z86.32] 12/26/2023 Binge-eating disorder, in full remission, mild *12/26/2023 Encounter Status:Closed by LINWOOD ALVAREZ on 01/14/25 WENDYOV Observed: 12/19/2024 7:00 AM Status: COMPLETED Source: [facility] Office Visit ([facility]) DO OLSON ([id number]) 1980 F Date Time Provider Department 12/19/24 7:00 AM ROBYN MURRELL During your visit today, we recorded the following information about you: Pulse Blood pressure Weight 92/minute 108/76 73.5 kg Robyn Murrell APRN.ORDER TAKERS SUPERVISOR 12/19/2024 7:45 AM Addendum -- Metformin can interfere with the absorption of B12 in your food, please add a B12 1,000-2,400 mcg supplement every day - Kipuntamera (tirzepatide): increase dose to 7.5 mg today, then hold all doses until your carpal tunnel surgery on December 30. - Phentermine 37.5 mg: continue each morning on an empty stomach; stop phentermine a few days before your December 30 surgery - Metformin ER 500 mg: continue two tablets (1 g) each morning with breakfast. - Topiramate 25 mg: continue as needed in the morning for hunger; if binge-eating increases, let me know to consider adjusting to 50 mg twice daily. - Vitamin B12: metformin can reduce B12 absorption over time. Confirm the B12 amount in your multivitamin; you will likely need a total of 1,000-2,400 mcg daily. - Labs: schedule a fasting comprehensive metabolic panel (CMP) at your convenience--fast 8-12 hours (water only) before the draw. - Eating pattern: eat distinct meals or snacks every 3-4 hours rather than grazing. Aim for: - Avoid continual sipping of caloric beverages - Monitor your symptoms: let me know if binge eating, appetite, or sleep worsens. - Follow-up visit by April 04 to reassess weight management and renew phentermine. - Whole food balanced protein, controlled carbohydrate nutrition plan - 30 g of protein 3 times a day and up to 30 g of carbs at lunch and dinner only. 1st meal of the day- 30g protein with limit of 2 gm carbohydrates. Premier Protein or generic 30 gm protein 1 gm sugar 2. 2-3 eggs and some unbreaded meat and/or cheese. 3. 2-3 eggs and 1/2 of protein shake or one of the yogurts below: :ratio, KETO Friendly Dairy Snack 1 single svg - 15g protein AND 2g carb Two Good Lowfat [place] Yogurt, Lower Sugar - 12g protein AND 2g carb No fruit, vegetables, bread, grain, other brands of yogurt, Smoothies, etc. Lunch and dinner - 30 gm protein is the goal with less than 30 gm carbohydrates All snacks and meals - all protein or more protein than carbs Protein - no carbs Egg 1 large - 6g Egg white 1 large 3.6g 3 oz is approximately the size of a deck of cards and equals 21 g protein so 4 oz is 28 gm protein Beef, Chicken, [place], Pork, Eli 1 oz 7g Fish, Tuna Fish 1 oz 7g (Starkist tuna packet 2.6 oz 17 gm protein) Seafood (Crabmeat, Shrimp, Lobster) 1 oz 6g Protein shakes (read labels) Premier Protein or generic [employer] Equate, Me[employer] High Performance- 30g protein AND 1g carb Premier Protein powder or generic- 30 g protein, 1g carb Fairlife 30 gram protein - 30g protein AND 3g carb BOOST Glucose Control Max 30g Protein Nutritional Drink - 30g protein AND 1g carb Nurri 30g protein 2g carb Slimfast High Protein - 20g protein AND 1g carb Ensure Max Protein Nutrition Shake 30g protein AND 2g carb OWYN plant based 100 % vegan no dairy, soy, wheat/gluten 32g protein 0 net carb (not a meal replacement) Premier Protein plant protein powder - 25g protein, 0 sugar/2g carb Vanilla and chocolate (not a meal replacement) Protein AND carbs Beef/[place] Jerky 1 oz dried 10-15g protein - check carb count, can be high if sugar added Slim Devante - 6 gm protein and 4 net carb Great Value original turkey sausage sticks - 7 gm protein and 2 gm carb Ugo (at [facility]) Original smoked sausage sticks - 8 gm protein and 0 carb Imitation Crab Meat 1 oz - 2g protein AND 4g carb Milk, skim 2% or 1% 8 oz - 8g protein AND 12g carb Fairlife 2% milk 8 oz -13g protein AND 6g carb [place] yogurt Full Fat [place] Yogurt 1 cup - 20.4g protein AND 9.1g carb 2% [place] Yogurt 1 cup - 22.7g protein AND 9.1g carb 0% (fat-free) [place] Yogurt - 1 cup 24g protein AND 9.3g carb Aldi Protein [place] yogurt single svg - 13/g15g protein AND 7g carb Chobani Zero Sugar single svg: - 12g protein AND 5g carb Dannon [place] Light + Fit 1 single svg - 12g protein AND 9g carb Oikos Pro single svg - 20g protein AND 8g carb Oikos Triple Zero [place] Nonfat Yogurt 1 single svg - 15g protein AND 7g carb :ratio, KETO Friendly Dairy Snack 1 single svg - 15g protein AND 2g carb :ratio Protein 1 single svg - 25g protein AND 8g carb Two Good Lowfat [place] Yogurt, [place], Lower Sugar - 12g protein AND 2g carb Yoplait Protein 1 single svg 15g protein AND 5g carb Dairy Free - [place] unsweetened [place] almond/soy 15g protein AND 3g carb Dairy Free - True Goodness by [facility] coconut-based yogurt alternative 1 g protein 1 g net carb 180 phil Drinkable yogurts: Chobani drinkable 15g, 20g and 30g protein AND 18 carb (too many carbs for breakfast) Chobani Zero Sugar 10g protein 6g carbs 50 calories Oikos Pro drinkable yogurt 1 single svg - 23g protein AND 8g carb :ratio Protein 26g protein 9g carb Cheese each oz Brie 5.9g protein AND 0.1g carb Cheddar 7g protein AND 0.4g carb [place] 6.7g protein AND 0.7g carb Cream Cheese 1.7g protein AND 1.2g carb [employer]ms whipped [place] cream cheese (WM) 2 T 3g protein 2g carb Feta 4g protein AND 1.2g carb Mozzarella 6.3g protein AND 0.6g carb Parmesan 10g protein AND 0.9g carb Kitt[place] 7.6g protein AND 1.5g carb Cottage Cheese 1/2 c Break[place] 2% 13g protein 7g carb Nandini 2% 13g protein 5 g carb Good Culture 2% 14g protein 3g carb Lactaid 13g protein 5g carb Patel?s Low Fat 12g protein AND 4g carb Legumes Lentils ? cup 9g protein AND 20g carb [place] beans ? cup 7g protein AND 20g carb Kidney, Black, [employer], Cannellini beans ? cup 8g protein AND 20g carb Chickpeas 1/2 c 6g protein AND 15g carb Soybeans 1/2 c 14g complete protein AND 8.5g carb [place] milk, unsweetened 8 oz 1g protein AND 2g carb Soy milk 8 oz 3.5g protein AND 1.6g carb Tofu 1/2 cup 10g protein AND 2.3g carb Peanut butter, natural 2 Tbsp 7-8g protein AND 4g net carbs, 190 calories PB2 powder 2 Tbsp 6g protein AND 5g carb Nuts and Seeds per oz Almonds - 5.9g protein AND 6.1g carb Somers Nuts - 4.0g protein AND 3.4g carb Cashews - 5.1g protein AND 9.2g carb Hazelnuts - 4.2g protein AND 4.7g carb Hemp seeds/hearts 3 T/30 gms - 9.5 gm complete protein and 2.5 gm carb Peanuts - 7g protein AND 4.6g carb Pecans - 2.6g protein AND 3.9g carb Pistachios - 5.8g protein AND 7.8g carb Pumpkin Seeds - 6.9g protein AND 5g carb [place] Seeds - 5.8g protein AND 5.6g carb Walnuts - 4.3g protein AND 3.8g carb Edamame Beans (soybean) snack 1 pack 11 gm complete protein 2 carb 5 (FIVE) gram carb vegetable options 1 cup raw OR ? cup cooked: Asparagus Hernandez sprouts Beets Broccoli Brussel sprouts Cabbage Carrots Cauliflower Celery Perry Eggplant Green beans Lettuce Peppers Snap peas Spaghetti squash Spinach Tomato Turnips Zucchini 15 gram carb vegetable options ? cup cooked corn or hominy ? corn on the cob, large (5 oz) ? cup cooked green peas 4.3 gm complete protein ? cup cooked clinton beans 1 small potato or sweet potato ? cup cooked potato, plain ? cup cooked sweet potato, plain 1 cup winter squash (pumpkin, acorn, butternut) 1 cup marinara or pasta sauce - check label ? cup tomato juice ? cup tomato puree Beans, Seeds, Nuts ? cup cooked beans (kidney, hernandez, red, green, etc.) ? cup cooked lentils ? cup baked beans 4 tablespoons nut butter <15 gram carb fruit options Berries have the lowest sugar content 1/2 medium apple - 12.5 carbs 1/2 medium avocado - 6.5 gm carbs 1/2 medium banana - 15 carbs 1/2 cup blueberries - 11 carbs - may actually help you lose weight 1/2 cup fresh cherries -11 carbs 1 medium Amena -9 carbs 1/2 cup fresh cranberries - 6.5 carbs 1 [place] date - 15-18 carbs 1/2 c grapes - 15 carbs 1/2 medium grapefruit - 10.5 carbs 1/2 cup diced honeydew melon - 8 carbs 1 medium kiwi without skin - 11 carbs 1/2 cup sliced saw -14 carbs 1 medium nectarine - 15 carbs 1 medium orange -15.5 carbs 1 medium peach -14.5 carbs 1/2 cup fresh pineapple -11 carbs 1 medium plum -7.5 carbs 1 prune - 6 carbs 1/4 c raisins - 31.25 carbs 1/2 cup raspberries -7.5 carbs 1/2 c strawberries - 12.7 carbs 1 medium tangerine -12 carbs 1/2 cup diced watermelon - 6 carbs Grains Brown rice 1/2 c 5.5g protein 24 carb White long-grain rice 1/2 c 2g protein 22.5 carb Quinoa 1/2 c 4 gm complete protein 25 carb Oatmeal, old fashioned 1/2 c 5g protein 27g carb High Protein Snack Ideas 1. Jerky 2. [place] mix without dried fruit 3. [place] roll-ups 4. [place] yogurt 5. Veggies and yogurt dip 6. Tuna 7. Hard-boiled eggs 8. Peanut butter with celery 9. Cheese slices/ Cheese Stick 10. Handful of almonds, peanuts or walnuts 11. Cottage Cheese 12. Beef sticks 13. Protein bars 14. Canned [place] 15. Pumpkin seeds 16. Nut butter 17. Protein shake or protein bar 18. Avocado and chicken salad 19. Egg muffins 20. Leftover protein or lunch meat 21. 1/2 c blended cottage cheese or [place] yogurt with dry ranch/Mrs. Dash/herb seasoning mix to make protein dip- add raw veg 22. 1/2 c blended cottage cheese with 1 Tbsp sugar-free dry cheesecake pudding mix 12g protein 10 carb 23. Pudding - 1 30 gm protein shake with 1/2 pkg sugar-free pudding 4 svgs - 7.8 gm protein, 5 carb each svg 24. SF Sunkist or Root Beer with 1-2 Tablespoons heavy whipping cream 25. Mini frozen dessert bites - layer protein yogurt, skinny syrup and crushed nuts and freeze 26. Edamame Beans (soybean) snack 1 pack (O Beans) 11 gm complete protein 2 carb Why Is Protein So Important for Weight loss? consuming more protein not only reduces body weight but enhances body composition by decreasing fat mass while preserving fat-free mass During weight loss phase protein consumption (with normal kidney function) should be 1-1.6g protein per Kilogram of body weight (1kg=2.2lbs) On average Women need to Aim for a minimum 90g protein per day Consuming higher protein can also prevent weight regain after weight loss Protein consumption increases hormones responsible for satiety (feeling full)- these include Gut hormones like Glucagon-like peptide-1 (GLP-1), Cholecystokinin (CCK), Peptide Tyrosine-Tyrosine (PYY) and decreasing the Gut hormone responsible for causing hunger Ghrelin Protein has an increased thermogenesis effect of food- which means it take more calories to break down protein when consumed compared to carbohydrates or fats Protein also prevents a losing lean mass during weight loss (lose more fat and preserve fat free mass) which helps to increase resting energy expenditure (resting metabolic rate) Every pound of muscle gasca ~ 6 kcal per pound/day vs fat gasca ~ 2kcal per pound/day Carbohydrates - Why do You Crave Them? Eating too many refined carbohyrdates (sugar beverages, pastries, bread, pizza) which raises your blood glucose levels and therefore releasing insulin which in turn causes increase in hunger Carbohydrates suppress Ghrelin quickly but does not maintain the suppression for very long therefore hunger returns more quickly Consuming carbohydrates leads to a release of Dopamine ?feel good hormone? in our brain So how do you Curb these cravings? Eating Whole Foods with more fiber - High fiber carbs are absorbed and digested slowly so it does not impact blood sugar levels as much and will help in making you feel jensen for longer; fiber also is healthy for your gut bacteria and can help with constipation. Remember- carbohydrates are not the enemy but know what a proper serving size is, choose nutritious carbohydrates and space them out between meals. Always- eat your protein first followed by your non starchy vegetables followed by your carbohydrates- it will help your body with your glucose and insulin regulation Processed Foods vs Whole Foods- Impact on Weight: People who eat Ultra Processed food tend to consume about 500 calories more per day Ultra Processed foods are considered ?Calorie Dense? so when a person feels full they have typically already over eaten and consumed more calories Whole Foods (unprocessed foods) tend to be more more filling and more Nutrient Dense Unprocessed foods can be more expensive and not realistic for everyone however when you have the choice to consume unprocessed vs Ultra processed foods always pick unprocessed. Why can't people stop eating Ultra Processed foods? They are economical and optimized for taste by [employer] - they are designed to make you want to keep eating them- they feed common cravings and bypass the mechanisms that tell your brain you are full Benefits of eating Whole Foods and cutting out Ultra Processed Foods Increased concentration and focus (decreased brain fog), improved mood, better sleep, Decrease in fatigue, improvement in gut health, decreased inflammation, Likely WEIGHT LOSS Robyn Murrell, ERJI.ORDER TAKERS SUPERVISOR 12/19/2024 9:16 AM Signed Some documentation from previous visit of 09/25/2024 was copied and pasted, documentation has been reviewed and edited as necessary for today's visit. Patient Summary: Do is a 44 year old Female who presents for follow-up evaluation of obesity/weight management to treat and prevent related co-morbidities. In our previous visits we have discussed lifestyle intervention including a nutrition recommendations and physical activity optimization. Her last office visit was 3 months ago. Assessment/plan from last visit: - Restarted Mounjaro on 11/18, planning to increase to 7.5 mg today. Prescribed by PCP. - Metformin 500 mg tablet 1 gm at breakfast and MVI with B12 -Topiramate 25 mg tablet am as needed - Phentermine 37.5 mg tablet am - BED- mild and in remission Interval History PT specifies the following items as new or significant updates since the last appointment: - carpal tunnel surgery left 12/30/2024 - Reports that mild binge eating has not reoccurred, but acknowledges poor eating habits due to stress. - Attributes recent weight gain to stress and lack of exercise, but believes Mounjaro has helped manage weight. Weight loss since last vist: 0 lbs for a total loss of 48 lbs Date: Weight: BMI: Medications: 12/19/2024 162 lb 25.37 Restarted Mounjaro 11/18/24, prescribed by PCP 09/25/2024 162 lb 25.37 07/03/2024 158 lb 24.75 04/09/2024 156 lb 24.43 02/13/2024 163 lb 25.53 12/26/2023 160 lb 25.18 Metformin, Topiramate, Phentermine 04/06/2021 210 lb 31.61 Tirzepatide escalation to 15 mg LD 11/2023 WC: 32.5 in 5% weight loss = 153 lbs, 10% weight loss = 145 lbs Anti-obesity medications: meformin Benefit:increased fullness Adverse effects: occasional diarrhea Anti-obesity medications: Phentermine. Benefit:decreased appetite Adverse effects: none Anti-obesity medications: Topiramate. Benefit:decreased food thoughts Adverse effects: possible hair loss Weight promoting medications: None Previous Diet (initial appointment): Awake - 5-0530 B - 629-7 - 30 gm protein shake or granola or fruit with coffee with with flavoring syrup and sweetened creamer. S - 10-1030 pretzels or apple or veg or HB eggs L - 1200 if work - Salad or 1/2 sandwich or soup or pizza/home - protein shake and fruit or veg or yogurt and granola S - none D - [id number] protein and veg and small carb - potato/pasta/corn/rice No dessert S - rare - popcorn or ice cream Fluids: water Bedtime - [id number] Eating Disorder binge eating Dietary changes: - coffee with sweetened flavored cream, starting around 6:30 AM and sometimes sipping until 1:00 PM. - Breakfast: 30g protein shake around 7:00 AM, occasionally a wake-up wrap from [employer] less than once a week, and sometimes eggs. - Morning Snack: Eggs, jerky, or grapes a couple of times a week. - Lunch: Small portion of whatever is catered into the office, sometimes adding a protein shake. - Afternoon Snack: None - Dinner: Meat and a vegetable around 6:00 PM, sometimes adding rice or potato, and occasionally just a protein shake. - Drinks: Water and coffee with sweetened flavored cream, starting around 6:30 AM and sometimes sipping until 1:00 PM. Current Barriers: stress eating, grazing/irregular meal patterns, inadequate sleep duration, and reduced physical activity Exercise: Exercise - Physical activity: Engages in barn chores and house cleaning but no intentional routine exercise due to leg pain. - Leg pain: Right leg has a painful pinching sensation, had a hamstring reattached, and was told by a doctor that it's just the way it is. Sleep Issues - Reports poor sleep, getting 4-6 hours per night, not feeling rested. - Attributes sleep issues to stress and numbness and tingling in her wrist. - Taking trazodone every night. Stress - Reports high stress levels due to her 's job change and subsequent legal issues. - is being sued by his previous employer to keep him out of the industry for a year, causing significant stress. - Mentions that her is receiving assistance from his new company and that their personal injury attorney said they have a strong case. - Has missed work to support her during this time. - Reports that her has been very stressed, stating, My and I have been together since 1997 and I've never seen him like this before. - Coping with stress by managing weight and engaging in physical activities like barn chores and house cleaning. CrCl cannot be calculated (No successful lab value found.). PAST MEDICAL HISTORY Diagnosis Date Anxiety 11/23/2023 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 09/15/2020 Gestational diabetes (HCC) PVC (premature ventricular contraction) Current Outpatient Medications Medication Sig Dispense Refill MOUNJARO 15 mg/0.5 mL pen injector Inject 15 mg subcutaneously one time a week. OTC PRODUCT Multivitamin topiramate (TOPAMAX) 25 mg tablet Take 1 tablet by mouth two times a day. 180 tablet 1 COLLAGEN MISC metFORMIN ER (GLUCOPHAGE XR) 500 mg 24 hr tablet Take 1 tablet by mouth two times a day. Patient should start on August 11, 2024. 180 tablet 3 clotrimazole-betamethasone (LOTRISONE) cream Apply 1 application to affected area two times a day. 15 g 0 FLUoxetine (PROZAC) 20 mg capsule Take 20 mg by mouth once daily. (Patient taking differently: Take 40 mg by mouth once daily.) traZODone (DESYREL) 50 mg tablet Take 100 mg by mouth daily at bedtime. 100 mg daily [START ON 01/04/2025] Phentermine HCl 37.5 mg tablet Take 1 tablet by mouth daily before breakfast for 90 days. Patient should start on January 04, 2025. 90 tablet 0 No current facility-administered medications for this visit. 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 PE GENERAL: Pleasant; no acute distress PULMONARY: normal inspiratory effort NEURO: alert and oriented x3 Results: recent labs reviewed with the patient. Outside labs: 12/27/2023 [facility] CBC WNL; CMP WNL; Hgba1c 5.0; Total Chol 159: HDL 75: LDL 74: TG 50:; TSH 0.52 01/2023 - CBC, lipids, CBC WNL 09/26/2023 Hgba1c 5.0 Anti-Obesity Medications >Phentermine: No uncontrolled HTN, No CVD Hx or hx of seizure disorder. No MAOI inhibitor use. No drug abuse hx. Crcl > 15. >Topiramate/zonisamide: No seizure, kidney stone or glaucoma hx. No hx of migraines, or hx of poor sleep. Hysterectomy >Qsymia: see above >Contrave: No uncontrolled HTN or hx of seizure disorder. No MAOI inhibitor use. No opiate use. >Saxenda/Wegovy/Ozempic: Cost. Ins coverage? >Metformin: eGFR > 30. No contraindications or medication interactions. Assessment/Plan: Do Olson is a 44 year old yo with Class I obesity who presented today for follow up for supervised weight loss to treat and prevent related co-morbidities. 1. Osteoarthritis of left knee, unspecified osteoarthritis type (M17.12) - benefits of weight loss 2. Anxiety (F41.9) - Anxiety related to 's legal situation and upcoming surgery. - Discussed coping mechanisms and impact on sleep and eating habits. 3. History of gestational diabetes (Z86.32) - Mounjaro and Metformin 4. Binge-eating disorder, in full remission, mild (F50.814) - Mild binge eating currently in remission; no recent episodes reported. - Continue topiramate 25 mg in the morning as needed for appetite suppression. - Educated on typical dosing for binge eating (50 mg BID) and advised to notify if binge eating increases. 5. Encounter for long-term (current) use of medications (Z79.899) - Order CMP; instructed to complete fasting (8-12 hours) while well-hydrated. 6. History of obesity (Z86.39) - Weight increased from 156 lbs to 162 lbs; BMI currently 25.18. - Restarted Mounjaro (tirzepatide) on 11/18; last dose of 5 mg taken, planning to increase to 7.5 mg. Prescribed by PCP - Advised to hold Mounjaro until after surgery per pre-op instructions - On metformin ER 1 g daily at breakfast; continue as prescribed. - Advised to supplement with 1,000-2,400 mcg B12 daily due to risk of B12 deficiency with long-term metformin use. - Advised to stop phentermine a few days prior to surgery due to stimulant effects on heart rate and anesthesia risk. .- Reviewed dietary habits; advised to avoid grazing and maintain 3-4 hour intervals between meals/snacks. - Discussed impact of sipping caloric beverages (coffee with sweetened cream) on metabolism and weight loss. - TOPIRAMATE 25 MG TABLET currently taking as needed - PHENTERMINE 37.5 MG TABLET Patient has met the weight loss requirement of 5% TBW in initial 3 months using phentermine without any adverse side effects. Pt has responded well and would like to continue use for weight management. 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 The patient is currently enrolled in a diet and exercise program The patient has no known history of contraindications The patient is free from drug or ETHO abuse The patient is not or and is aware not to become while using this medication OARS was reviewed. PDMP website checked and validated. All prescriptions have been APPROPRIATELY filled. No suspicious activity was identified. - METFORMIN ER 500 MG TABLET twice daily -- Continue - Whole food balanced protein low-carb nutrition. Getting more protein - Given protein/whole food vegetable and fruit/high protein snack lists. - Given information on protein, carbs and processed vs whole foods,. -- Encouraged the patient to improve her physical activity. An overall goal of 150-200 minutes per week of exercise has been effective in weight loss and maintenance. We reviewed that during management she is to report any concerning side effects of any pharmacotherapy she is placed on. She understands that she will need routine follow up in the office. Prior to any virtual visits in the future she will need to check her Blood pressure, weight, and pulse. Prescription instructions reviewed with patient as applicable. Potential red flag symptoms discussed with the patient. Reviewed appropriate action plan to take if red flag symptoms occur. Patient agreeable to treatment plan. Follow up in 3 months Robyn Murrell CNP Advanced Education from the [employer] Medical Decision Making: Problems: Moderate: 1+ chronic illnesses with change and 2+ stable chronic illnesses Data: Unique test(s) ordered: 1 Risk: Moderate: Drug management and Moderate risk from testing/treatment Medical Decision Making Level: 4 - Moderate Allergies As of Date: 12/19/2024 Noted Allergy Reaction AMOXACILLIN (AMOXICILLIN) 04/09/2024 2 - Rash Date Reviewed: 12/19/2024 Reviewed by: Robyn Murrell APRN.ORDER TAKERS SUPERVISOR - Fully Assessed Reason for Visit: Weight Management [3933] Primary Visit Diagnosis:Osteoarthritis of left knee, unspecified osteoarthritis type [M17.12] Other Visit Diagnoses:Anxiety [F41.9] History of gestational diabetes [Z86.32] Binge-eating disorder, in full remission, mild [F50.814] Encounter for long-term (current) use of medications [Z79.899] History of obesity [Z86.39] Order(s):[START ON 01/04/2025] Phentermine HCl 37.5 mg tabletTake 1 tablet by mouth daily before breakfast for 90 days. Patient should start on January 04, 2025.Disp: 90 tabletRfl: 0 COMPREHENSIVE METABOLIC PANEL [SQCMP] Order #: [id number] FUTURE Prescriptions as of 12/19/2024 - Phentermine HCl 37.5 mg tablet Take 1 tablet by mouth daily before breakfast for 90 days. Patient should start on January 04, 2025. - MOUNJARO 15 mg/0.5 mL pen injector Inject 15 mg subcutaneously one time a week. - OTC PRODUCT Multivitamin - topiramate (TOPAMAX) 25 mg tablet Take 1 tablet by mouth two times a day. - COLLAGEN MISC - metFORMIN ER (GLUCOPHAGE XR) 500 mg 24 hr tablet Take 1 tablet by mouth two times a day. Patient should start on August 11, 2024. - clotrimazole-betamethasone (LOTRISONE) cream Apply 1 application to affected area two times a day. - FLUoxetine (PROZAC) 20 mg capsule Take 20 mg by mouth once daily. - traZODone (DESYREL) 50 mg tablet Take 100 mg by mouth daily at bedtime. 100 mg daily Problem List As Of Date 12/19/2024 Noted Resolved Pain in right shoulder [M25.511] 06/10/2015 09/18/2018 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 [D24.1] 09/15/2020 Anxiety [F41.9] 11/23/2023 Stress incontinence [N39.3] 11/23/2023 History of obesity [Z86.39] 11/23/2023 Osteoarthritis of left knee [M17.12] 12/25/2023 History of gestational diabetes [Z86.32] 12/26/2023 Binge-eating disorder, in full remission, mild *12/26/2023 Other instructions from your clinician: -- Metformin can interfere with the absorption of B12 in your food, please add a B12 1,000-2,400 mcg supplement every day - Mounjaro (tirzepatide): increase dose to 7.5 mg today, then hold all doses until your carpal tunnel surgery on December 30. - Phentermine 37.5 mg: continue each morning on an empty stomach; stop phentermine a few days before your December 30 surgery - Metformin ER 500 mg: continue two tablets (1 g) each morning with breakfast. - Topiramate 25 mg: continue as needed in the morning for hunger; if binge-eating increases, let me know to consider adjusting to 50 mg twice daily. - Vitamin B12: metformin can reduce B12 absorption over time. Confirm the B12 amount in your multivitamin; you will likely need a total of 1,000-2,400 mcg daily. - Labs: schedule a fasting comprehensive metabolic panel (CMP) at your convenience--fast 8-12 hours (water only) before the draw. - Eating pattern: eat distinct meals or snacks every 3-4 hours rather than grazing. Aim for: - Avoid continual sipping of caloric beverages - Monitor your symptoms: let me know if binge eating, appetite, or sleep worsens. - Follow-up visit by April 04 to reassess weight management and renew phentermine. - Whole food balanced protein, controlled carbohydrate nutrition plan - 30 g of protein 3 times a day and up to 30 g of carbs at lunch and dinner only. 1st meal of the day- 30g protein with limit of 2 gm carbohydrates. Premier Protein or generic 30 gm protein 1 gm sugar 2. 2-3 eggs and some unbreaded meat and/or cheese. 3. 2-3 eggs and 1/2 of protein shake or one of the yogurts below: :ratio, KETO Friendly Dairy Snack 1 single svg - 15g protein AND 2g carb Two Good Lowfat [place] Yogurt, Lower Sugar - 12g protein AND 2g carb No fruit, vegetables, bread, grain, other brands of yogurt, Smoothies, etc. Lunch and dinner - 30 gm protein is the goal with less than 30 gm carbohydrates All snacks and meals - all protein or more protein than carbs Protein - no carbs Egg 1 large - 6g Egg white 1 large 3.6g 3 oz is approximately the size of a deck of cards and equals 21 g protein so 4 oz is 28 gm protein Beef, Chicken, [place], Pork, Eli 1 oz 7g Fish, Tuna Fish 1 oz 7g (Starkist tuna packet 2.6 oz 17 gm protein) Seafood (Crabmeat, Shrimp, Lobster) 1 oz 6g Protein shakes (read labels) Premier Protein or generic [employer] Equate, [employer] High Performance- 30g protein AND 1g carb Premier Protein powder or generic- 30 g protein, 1g carb Fairlife 30 gram protein - 30g protein AND 3g carb BOOST Glucose Control Max 30g Protein Nutritional Drink - 30g protein AND 1g carb Nurri 30g protein 2g carb Slimfast High Protein - 20g protein AND 1g carb Ensure Max Protein Nutrition Shake 30g protein AND 2g carb OWYN plant based 100 % vegan no dairy, soy, wheat/gluten 32g protein 0 net carb (not a meal replacement) Premier Protein plant protein powder - 25g protein, 0 sugar/2g carb Vanilla and chocolate (not a meal replacement) Protein AND carbs Beef/[place] Jerky 1 oz dried 10-15g protein - check carb count, can be high if sugar added Slim Devante - 6 gm protein and 4 net carb Great Value original turkey sausage sticks - 7 gm protein and 2 gm carb Ugo (at [employer]) Original smoked sausage sticks - 8 gm protein and 0 carb Imitation Crab Meat 1 oz - 2g protein AND 4g carb Milk, skim 2% or 1% 8 oz - 8g protein AND 12g carb Fairlife 2% milk 8 oz -13g protein AND 6g carb [place] yogurt Full Fat [place] Yogurt 1 cup - 20.4g protein AND 9.1g carb 2% [place] Yogurt 1 cup - 22.7g protein AND 9.1g carb 0% (fat-free) [place] Yogurt - 1 cup 24g protein AND 9.3g carb Aldi Protein [place] yogurt single svg - 13/g15g protein AND 7g carb Chobani Zero Sugar single svg: - 12g protein AND 5g carb Dannon [place] Light + Fit 1 single svg - 12g protein AND 9g carb Oikos Pro single svg - 20g protein AND 8g carb Oikos Triple Zero [place] Nonfat Yogurt 1 single svg - 15g protein AND 7g carb :ratio, KETO Friendly Dairy Snack 1 single svg - 15g protein AND 2g carb :ratio Protein 1 single svg - 25g protein AND 8g carb Two Good Lowfat [place] Yogurt, [place], Lower Sugar - 12g protein AND 2g carb Yoplait Protein 1 single svg 15g protein AND 5g carb Dairy Free - [place] unsweetened [place] almond/soy 15g protein AND 3g carb Dairy Free - True Goodness by [employer] coconut-based yogurt alternative 1 g protein 1 g net carb 180 phil Drinkable yogurts: Chobani drinkable 15g, 20g and 30g protein AND 18 carb (too many carbs for breakfast) Chobani Zero Sugar 10g protein 6g carbs 50 calories Oikos Pro drinkable yogurt 1 single svg - 23g protein AND 8g carb :ratio Protein 26g protein 9g carb Cheese each oz Brie 5.9g protein AND 0.1g carb Cheddar 7g protein AND 0.4g carb [place] 6.7g protein AND 0.7g carb Cream Cheese 1.7g protein AND 1.2g carb [employer] whipped [place] cream cheese (WM) 2 T 3g protein 2g carb Feta 4g protein AND 1.2g carb Mozzarella 6.3g protein AND 0.6g carb Parmesan 10g protein AND 0.9g carb [place] 7.6g protein AND 1.5g carb Cottage Cheese 1/2 c [place] 2% 13g protein 7g carb Nandini 2% 13g protein 5 g carb Good Culture 2% 14g protein 3g carb Lactaid 13g protein 5g carb Patel?s Low Fat 12g protein AND 4g carb Legumes Lentils ? cup 9g protein AND 20g carb [place] beans ? cup 7g protein AND 20g carb Kidney, Black, [employer], Cannellini beans ? cup 8g protein AND 20g carb Chickpeas 1/2 c 6g protein AND 15g carb Soybeans 1/2 c 14g complete protein AND 8.5g carb [place] milk, unsweetened 8 oz 1g protein AND 2g carb Soy milk 8 oz 3.5g protein AND 1.6g carb Tofu 1/2 cup 10g protein AND 2.3g carb Peanut butter, natural 2 Tbsp 7-8g protein AND 4g net carbs, 190 calories PB2 powder 2 Tbsp 6g protein AND 5g carb Nuts and Seeds per oz Almonds - 5.9g protein AND 6.1g carb [place] Nuts - 4.0g protein AND 3.4g carb Cashews - 5.1g protein AND 9.2g carb Hazelnuts - 4.2g protein AND 4.7g carb Hemp seeds/hearts 3 T/30 gms - 9.5 gm complete protein and 2.5 gm carb Peanuts - 7g protein AND 4.6g carb Pecans - 2.6g protein AND 3.9g carb Pistachios - 5.8g protein AND 7.8g carb Pumpkin Seeds - 6.9g protein AND 5g carb [place] Seeds - 5.8g protein AND 5.6g carb Walnuts - 4.3g protein AND 3.8g carb Edamame Beans (soybean) snack 1 pack 11 gm complete protein 2 carb 5 (FIVE) gram carb vegetable options 1 cup raw OR ? cup cooked: Asparagus Hernandez sprouts Beets Broccoli Brussel sprouts Cabbage Carrots Cauliflower Celery [place] Eggplant Green beans Lettuce Peppers Snap peas Spaghetti squash Spinach Tomato Turnips Zucchini 15 gram carb vegetable options ? cup cooked corn or hominy ? corn on the cob, large (5 oz) ? cup cooked green peas 4.3 gm complete protein ? cup cooked [place] beans 1 small potato or sweet potato ? cup cooked potato, plain ? cup cooked sweet potato, plain 1 cup winter squash (pumpkin, acorn, butternut) 1 cup marinara or pasta sauce - check label ? cup tomato juice ? cup tomato puree Beans, Seeds, Nuts ? cup cooked beans (kidney, hernandez, red, green, etc.) ? cup cooked lentils ? cup baked beans 4 tablespoons nut butter <15 gram carb fruit options Berries have the lowest sugar content 1/2 medium apple - 12.5 carbs 1/2 medium avocado - 6.5 gm carbs 1/2 medium banana - 15 carbs 1/2 cup blueberries - 11 carbs - may actually help you lose weight 1/2 cup fresh cherries -11 carbs 1 medium Amena -9 carbs 1/2 cup fresh cranberries - 6.5 carbs 1 [place] date - 15-18 carbs 1/2 c grapes - 15 carbs 1/2 medium grapefruit - 10.5 carbs 1/2 cup diced honeydew melon - 8 carbs 1 medium kiwi without skin - 11 carbs 1/2 cup sliced saw -14 carbs 1 medium nectarine - 15 carbs 1 medium orange -15.5 carbs 1 medium peach -14.5 carbs 1/2 cup fresh pineapple -11 carbs 1 medium plum -7.5 carbs 1 prune - 6 carbs 1/4 c raisins - 31.25 carbs 1/2 cup raspberries -7.5 carbs 1/2 c strawberries - 12.7 carbs 1 medium tangerine -12 carbs 1/2 cup diced watermelon - 6 carbs Grains Brown rice 1/2 c 5.5g protein 24 carb White long-grain rice 1/2 c 2g protein 22.5 carb Quinoa 1/2 c 4 gm complete protein 25 carb Oatmeal, old fashioned 1/2 c 5g protein 27g carb High Protein Snack Ideas 1. Jerky 2. [place] mix without dried fruit 3. [place] roll-ups 4. [place] yogurt 5. Veggies and yogurt dip 6. Tuna 7. Hard-boiled eggs 8. Peanut butter with celery 9. Cheese slices/ Cheese Stick 10. Handful of almonds, peanuts or walnuts 11. Cottage Cheese 12. Beef sticks 13. Protein bars 14. Canned [place] 15. Pumpkin seeds 16. Nut butter 17. Protein shake or protein bar 18. Avocado and chicken salad 19. Egg muffins 20. Leftover protein or lunch meat 21. 1/2 c blended cottage cheese or [place] yogurt with dry ranch/Mrs. Dash/herb seasoning mix to make protein dip- add raw veg 22. 1/2 c blended cottage cheese with 1 Tbsp sugar-free dry cheesecake pudding mix 12g protein 10 carb 23. Pudding - 1 30 gm protein shake with 1/2 pkg sugar-free pudding 4 svgs - 7.8 gm protein, 5 carb each svg 24. SF Sunkist or Root Beer with 1-2 Tablespoons heavy whipping cream 25. Mini frozen dessert bites - layer protein yogurt, skinny syrup and crushed nuts and freeze 26. Edamame Beans (soybean) snack 1 pack (O Beans) 11 gm complete protein 2 carb Why Is Protein So Important for Weight loss? consuming more protein not only reduces body weight but enhances body composition by decreasing fat mass while preserving fat-free mass During weight loss phase protein consumption (with normal kidney function) should be 1-1.6g protein per Kilogram of body weight (1kg=2.2lbs) On average Women need to Aim for a minimum 90g protein per day Consuming higher protein can also prevent weight regain after weight loss Protein consumption increases hormones responsible for satiety (feeling full)- these include Gut hormones like Glucagon-like peptide-1 (GLP-1), Cholecystokinin (CCK), Peptide Tyrosine-Tyrosine (PYY) and decreasing the Gut hormone responsible for causing hunger Ghrelin Protein has an increased thermogenesis effect of food- which means it take more calories to break down protein when consumed compared to carbohydrates or fats Protein also prevents a losing lean mass during weight loss (lose more fat and preserve fat free mass) which helps to increase resting energy expenditure (resting metabolic rate) Every pound of muscle gasca ~ 6 kcal per pound/day vs fat gasca ~ 2kcal per pound/day Carbohydrates - Why do You Crave Them? Eating too many refined carbohyrdates (sugar beverages, pastries, bread, pizza) which raises your blood glucose levels and therefore releasing insulin which in turn causes increase in hunger Carbohydrates suppress Ghrelin quickly but does not maintain the suppression for very long therefore hunger returns more quickly Consuming carbohydrates leads to a release of Dopamine ?feel good hormone? in our brain So how do you Curb these cravings? Eating Whole Foods with more fiber - High fiber carbs are absorbed and digested slowly so it does not impact blood sugar levels as much and will help in making you feel jensen for longer; fiber also is healthy for your gut bacteria and can help with constipation. Remember- carbohydrates are not the enemy but know what a proper serving size is, choose nutritious carbohydrates and space them out between meals. Always- eat your protein first followed by your non starchy vegetables followed by your carbohydrates- it will help your body with your glucose and insulin regulation Processed Foods vs Whole Foods- Impact on Weight: People who eat Ultra Processed food tend to consume about 500 calories more per day Ultra Processed foods are considered ?Calorie Dense? so when a person feels full they have typically already over eaten and consumed more calories Whole Foods (unprocessed foods) tend to be more more filling and more Nutrient Dense Unprocessed foods can be more expensive and not realistic for everyone however when you have the choice to consume unprocessed vs Ultra processed foods always pick unprocessed. Why can't people stop eating Ultra Processed foods? They are economical and optimized for taste by [employer] - they are designed to make you want to keep eating them- they feed common cravings and bypass the mechanisms that tell your brain you are full Benefits of eating Whole Foods and cutting out Ultra Processed Foods Increased concentration and focus (decreased brain fog), improved mood, better sleep, Decrease in fatigue, improvement in gut health, decreased inflammation, Likely WEIGHT LOSS Prescriptions ordered this encounter Disp Refills Start End PHENTERMINE 37.5 MG TABLET 90 t* 0 01/04/2025 04/04/2025 Cmt: >5% TBW loss in initial 3 months of phentermine use qualifying for long-term off label treatment of obesity Route: PO Sig: Take 1 tablet by mouth daily before breakfast for 90 days. Patient should start on January 04, 2025. Medications Discontinued During This Encounter Prescriptions - Phentermine HCl 37.5 mg tablet (Discontinued) Take 1 tablet by mouth daily before breakfast for 90 days. Patient should start on October 06, 2024. Disposition: Return in about 3 months (around 04/01/2025) for wt mgt F/up. Follow-up and Disposition History for Encounter Date Provider Department Center 12/19/2024 [id number] MURRELL Encounter Status:Closed by ROBYN MURRELL on 12/19/24 PROGRESS Observed: 12/19/2024 7:00 AM Status: COMPLETED Source: [facility] HNO ID: [id number] Author: ROBYN MURRELL APRN.ORDER TAKERS SUPERVISOR Service: ? Author Type: Nurse Practitioner Type: Progress Notes Filed: 12/19/2024 09:16 Note Text: Some documentation from previous visit of 09/25/2024 was copied and pasted, documentation has been reviewed and edited as necessary for today's visit. Patient Summary: Do is a 44 year old Female who presents for follow-up evaluation of obesity/weight management to treat and prevent related co-morbidities. In our previous visits we have discussed lifestyle intervention including a nutrition recommendations and physical activity optimization. Her last office visit was 3 months ago. Assessment/plan from last visit: - Restarted Mounjaro on 11/18, planning to increase to 7.5 mg today. Prescribed by PCP. - Metformin 500 mg tablet 1 gm at breakfast and MVI with B12 -Topiramate 25 mg tablet am as needed - Phentermine 37.5 mg tablet am - BED- mild and in remission Interval History PT specifies the following items as new or significant updates since the last appointment: - carpal tunnel surgery left 12/30/2024 - Reports that mild binge eating has not reoccurred, but acknowledges poor eating habits due to stress. - Attributes recent weight gain to stress and lack of exercise, but believes Mounjaro has helped manage weight. Weight loss since last vist: 0 lbs for a total loss of 48 lbs Date: Weight: BMI: Medications: 12/19/2024 162 lb 25.37 Restarted Mounjaro 11/18/24, prescribed by PCP 09/25/2024 162 lb 25.37 07/03/2024 158 lb 24.75 04/09/2024 156 lb 24.43 02/13/2024 163 lb 25.53 12/26/2023 160 lb 25.18 Metformin, Topiramate, Phentermine 04/06/2021 210 lb 31.61 Tirzepatide escalation to 15 mg LD 11/2023 WC: 32.5 in 5% weight loss = 153 lbs, 10% weight loss = 145 lbs Anti-obesity medications: meformin Benefit:increased fullness Adverse effects: occasional diarrhea Anti-obesity medications: Phentermine. Benefit:decreased appetite Adverse effects: none Anti-obesity medications: Topiramate. Benefit:decreased food thoughts Adverse effects: possible hair loss Weight promoting medications: None Previous Diet (initial appointment): Awake - B - 0630-7 - 30 gm protein shake or granola or fruit with coffee with with flavoring syrup and sweetened creamer. S - 10-1030 pretzels or apple or veg or HB eggs L - 1200 if work - Salad or 1/2 sandwich or soup or pizza/home - protein shake and fruit or veg or yogurt and granola S - none D - [id number] protein and veg and small carb - potato/pasta/corn/rice No dessert S - rare - popcorn or ice cream Fluids: water Bedtime - [id number] Eating Disorder binge eating Dietary changes: - coffee with sweetened flavored cream, starting around 6:30 AM and sometimes sipping until 1:00 PM. - Breakfast: 30g protein shake around 7:00 AM, occasionally a wake-up wrap from [employer] less than once a week, and sometimes eggs. - Morning Snack: Eggs, jerky, or grapes a couple of times a week. - Lunch: Small portion of whatever is catered into the office, sometimes adding a protein shake. - Afternoon Snack: None - Dinner: Meat and a vegetable around 6:00 PM, sometimes adding rice or potato, and occasionally just a protein shake. - Drinks: Water and coffee with sweetened flavored cream, starting around 6:30 AM and sometimes sipping until 1:00 PM. Current Barriers: stress eating, grazing/irregular meal patterns, inadequate sleep duration, and reduced physical activity Exercise: Exercise - Physical activity: Engages in barn chores and house cleaning but no intentional routine exercise due to leg pain. - Leg pain: Right leg has a painful pinching sensation, had a hamstring reattached, and was told by a doctor that it's just the way it is. Sleep Issues - Reports poor sleep, getting 4-6 hours per night, not feeling rested. - Attributes sleep issues to stress and numbness and tingling in her wrist. - Taking trazodone every night. Stress - Reports high stress levels due to her 's job change and subsequent legal issues. - is being sued by his previous employer to keep him out of the industry for a year, causing significant stress. - Mentions that her is receiving assistance from his new company and that their personal injury attorney said they have a strong case. - Has missed work to support her during this time. - Reports that her has been very stressed, stating, My and I have been together since 1997 and I've never seen him like this before. - Coping with stress by managing weight and engaging in physical activities like barn chores and house cleaning. CrCl cannot be calculated (No successful lab value found.). PAST MEDICAL HISTORY Diagnosis Date Anxiety 11/23/2023 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 09/15/2020 Gestational diabetes (HCC) PVC (premature ventricular contraction) Current Outpatient Medications Medication Sig Dispense Refill MOUNJARO 15 mg/0.5 mL pen injector Inject 15 mg subcutaneously one time a week. OTC PRODUCT Multivitamin topiramate (TOPAMAX) 25 mg tablet Take 1 tablet by mouth two times a day. 180 tablet 1 COLLAGEN MISC metFORMIN ER (GLUCOPHAGE XR) 500 mg 24 hr tablet Take 1 tablet by mouth two times a day. Patient should start on August 11, 2024. 180 tablet 3 clotrimazole-betamethasone (LOTRISONE) cream Apply 1 application to affected area two times a day. 15 g 0 FLUoxetine (PROZAC) 20 mg capsule Take 20 mg by mouth once daily. (Patient taking differently: Take 40 mg by mouth once daily.) traZODone (DESYREL) 50 mg tablet Take 100 mg by mouth daily at bedtime. 100 mg daily [START ON 01/04/2025] Phentermine HCl 37.5 mg tablet Take 1 tablet by mouth daily before breakfast for 90 days. Patient should start on January 04, 2025. 90 tablet 0 No current facility-administered medications for this visit. 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 PE GENERAL: Pleasant; no acute distress PULMONARY: normal inspiratory effort NEURO: alert and oriented x3 Results: recent labs reviewed with the patient. Outside labs: 12/27/2023 [facility] CBC WNL; CMP WNL; Hgba1c 5.0; Total Chol 159: HDL 75: LDL 74: TG 50:; TSH 0.52 01/2023 - CBC, lipids, CBC WNL 09/26/2023 Hgba1c 5.0 Anti-Obesity Medications >Phentermine: No uncontrolled HTN, No CVD Hx or hx of seizure disorder. No MAOI inhibitor use. No drug abuse hx. Crcl > 15. >Topiramate/zonisamide: No seizure, kidney stone or glaucoma hx. No hx of migraines, or hx of poor sleep. Hysterectomy >Qsymia: see above >Contrave: No uncontrolled HTN or hx of seizure disorder. No MAOI inhibitor use. No opiate use. >Saxenda/Wegovy/Ozempic: Cost. Ins coverage? >Metformin: eGFR > 30. No contraindications or medication interactions. Assessment/Plan: Do Olson is a 44 year old yo with Class I obesity who presented today for follow up for supervised weight loss to treat and prevent related co-morbidities. 1. Osteoarthritis of left knee, unspecified osteoarthritis type (M17.12) - benefits of weight loss 2. Anxiety (F41.9) - Anxiety related to 's legal situation and upcoming surgery. - Discussed coping mechanisms and impact on sleep and eating habits. 3. History of gestational diabetes (Z86.32) - Mounjaro and Metformin 4. Binge-eating disorder, in full remission, mild (F50.814) - Mild binge eating currently in remission; no recent episodes reported. - Continue topiramate 25 mg in the morning as needed for appetite suppression. - Educated on typical dosing for binge eating (50 mg BID) and advised to notify if binge eating increases. 5. Encounter for long-term (current) use of medications (Z79.899) - Order CMP; instructed to complete fasting (8-12 hours) while well-hydrated. 6. History of obesity (Z86.39) - Weight increased from 156 lbs to 162 lbs; BMI currently 25.18. - Restarted Mounjaro (tirzepatide) on 11/18; last dose of 5 mg taken, planning to increase to 7.5 mg. Prescribed by PCP - Advised to hold Mounjaro until after surgery per pre-op instructions - On metformin ER 1 g daily at breakfast; continue as prescribed. - Advised to supplement with 1,000-2,400 mcg B12 daily due to risk of B12 deficiency with long-term metformin use. - Advised to stop phentermine a few days prior to surgery due to stimulant effects on heart rate and anesthesia risk. .- Reviewed dietary habits; advised to avoid grazing and maintain 3-4 hour intervals between meals/snacks. - Discussed impact of sipping caloric beverages (coffee with sweetened cream) on metabolism and weight loss. - TOPIRAMATE 25 MG TABLET currently taking as needed - PHENTERMINE 37.5 MG TABLET Patient has met the weight loss requirement of 5% TBW in initial 3 months using phentermine without any adverse side effects. Pt has responded well and would like to continue use for weight management. She understands that continued use is off label for long-term management of weight control. The patient is currently enrolled in a diet and exercise program The patient has no known history of contraindications The patient is free from drug or ETHO abuse The patient is not or and is aware not to become while using this medication OARS was reviewed. PDMP website checked and validated. All prescriptions have been APPROPRIATELY filled. No suspicious activity was identified. - METFORMIN ER 500 MG TABLET twice daily -- Continue - Whole food balanced protein low-carb nutrition. Getting more protein - Given protein/whole food vegetable and fruit/high protein snack lists. - Given information on protein, carbs and processed vs whole foods,. -- Encouraged the patient to improve her physical activity. An overall goal of 150-200 minutes per week of exercise has been effective in weight loss and maintenance. We reviewed that during management she is to report any concerning side effects of any pharmacotherapy she is placed on. She understands that she will need routine follow up in the office. Prior to any virtual visits in the future she will need to check her Blood pressure, weight, and pulse. Prescription instructions reviewed with patient as applicable. Potential red flag symptoms discussed with the patient. Reviewed appropriate action plan to take if red flag symptoms occur. Patient agreeable to treatment plan. Follow up in 3 months Robyn Murrell CNP Advanced Education from the [employer] Medical Decision Making: Problems: Moderate: 1+ chronic illnesses with change and 2+ stable chronic illnesses Data: Unique test(s) ordered: 1 Risk: Moderate: Drug management and Moderate risk from testing/treatment Medical Decision Making Level: 4 - Moderate CNOV Observed: 09/25/2024 3:30 PM Status: COMPLETED Source: [facility] Office Visit ([facility]) DO OLSON ([id number]) 1980 F Date Time Provider Department 09/25/24 3:30 PM ROBYN MURRELL During your visit today, we recorded the following information about you: Pulse Blood pressure Weight 65/minute 116/76 73.5 kg Robyn Murrell APRN.CNP 09/25/2024 4:47 PM Signed Some documentation from previous visit of 07/03/2024 was copied and pasted, documentation has been reviewed and edited as necessary for today's visit. Patient Summary: Do is a 44 year old Female who presents for follow-up evaluation of obesity/weight management to treat and prevent related co-morbidities. In our previous visits we have discussed lifestyle intervention including a nutrition recommendations and physical activity optimization. Her last office visit was 3 months ago. Assessment/plan from last visit: - Metformin 500 mg tablet 1 gm at breakfast B12 - will start taking -Topiramate 25 mg tablet am - Phentermine 37.5 mg tablet am - BED- mild and in remission Interval History PT specifies the following items as new or significant updates since the last appointment: - carpal tunnel surgery right hand in May 2024 -difficult recovery. Gained weight with emotional and stress eating while recovering at home. Left carpal tunnel surgery postponed until next winter - has a lot of pain which limits activity, upcoming injection. Weight loss since last vist: +4 lbs for a total loss of 48 lbs Date: Weight: BMI: Medications: 09/25/2024 162 lb 25.37 07/03/2024 158 lb 24.75 04/09/2024 156 lb 24.43 02/13/2024 163 lb 25.53 12/26/2023 160 lb 25.18 Metformin, Topiramate, Phentermine 04/06/2021 210 lb 31.61 Tirzepatide escalation to 15 mg LD 11/2023 WC: 32.5 in 5% weight loss = 153 lbs, 10% weight loss = 145 lbs Anti-obesity medications: meformin Benefit:increased fullness Adverse effects: occasional diarrhea Anti-obesity medications: Phentermine. Benefit:decreased appetite Adverse effects: none Anti-obesity medications: Topiramate. Benefit:decreased food thoughts Adverse effects: possible hair loss Weight promoting medications: None Previous Diet (initial appointment): - 629- - 30 gm protein shake or granola or fruit with coffee with with flavoring syrup and sweetened creamer. S - 10-1030 pretzels or apple or veg or HB eggs L - 1200 if work - Salad or 1/2 sandwich or soup or pizza/home - protein shake and fruit or veg or yogurt and granola S - none D - [id number] protein and veg and small carb - potato/pasta/corn/rice No dessert S - rare - popcorn or ice cream Fluids: water Bedtime - [id number] Eating Disorder binge eating Dietary changes: B - 8-9 am Usually 30 gm protein shake S - none or HB egg or jerky L - 1200 small portion of whatever is catered in her office for lunch - chicken breast/lasagne/salad and sometimes adds protein shake or protein shake and an egg S - none D - 1800 meat and veg. Sometimes rice or potato. Or protein shake. S - none Fluids - protein shakes, water, coffee Current Barriers: emotional eating, stress eating - after surgery while recovery from surgery at home, eating high-calorie foods, and reduced physical activity Exercise: decreased due to carpal tunnel surgery - unable to do [employer] Regular exercise: very limited - barn chores but no routine exercise Strength/resistance exercise:yes Barriers to regular exercise? no Work-related activity: depends on the day, mostly sedentary unless she is helping on the floor. 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 Gym Membership: yes Activity Tracker: yes average steps per day 3,000-10,000 Stress: stable - work, personal Sleep: decreased to 6 hours due to carpal tunnel pain, prn Trazadone CrCl cannot be calculated (No successful lab value found.). 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 Patient should start on July 08, 2024. 90 tablet 0 metFORMIN ER (GLUCOPHAGE XR) 500 mg 24 hr tablet Take 1 tablet by mouth two times a day. Patient should start on August 11, 2024. 180 tablet 3 clotrimazole-betamethasone (LOTRISONE) cream Apply 1 application to affected area two times a day. 15 g 0 topiramate (TOPAMAX) 25 mg tablet Take 1 tablet by mouth two times a day. 180 tablet 1 FLUoxetine (PROZAC) 20 mg capsule Take 20 mg by mouth once daily. traZODone (DESYREL) 50 mg tablet Take 100 mg by mouth daily at bedtime. 100 mg daily No current facility-administered medications for this visit. 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 Physical Exam Constitutional: She appears healthy. No distress. Results: recent labs reviewed with the patient. Outside labs: 12/27/2023 [facility] CBC WNL; CMP WNL; Hgba1c 5.0; Total Chol 159: HDL 75: LDL 74: TG 50:; TSH 0.52 01/2023 - CBC, lipids, CBC WNL 09/26/2023 Hgba1c 5.0 Anti-Obesity Medications >Phentermine: No uncontrolled HTN, No CVD Hx or hx of seizure disorder. No MAOI inhibitor use. No drug abuse hx. Crcl > 15. >Topiramate/zonisamide: No seizure, kidney stone or glaucoma hx. No hx of migraines, or hx of poor sleep. Hysterectomy >Qsymia: see above >Contrave: No uncontrolled HTN or hx of seizure disorder. No MAOI inhibitor use. No opiate use. >Saxenda/Wegovy/Ozempic: Cost. Ins coverage? >Metformin: eGFR > 30. No contraindications or medication interactions. Assessment/Plan: Do Olson is a 44 year old yo with Class I obesity who presented today for follow up for supervised weight loss to treat and prevent related co-morbidities. 1. Osteoarthritis of left knee, unspecified osteoarthritis type - ICD9: 715.96, ICD10: M17.12 (primary diagnosis) - Whole food balanced protein low-carb nutrition - TOPIRAMATE 25 MG TABLET once daily - PHENTERMINE 37.5 MG TABLET - METFORMIN ER 500 MG TABLET 2. Anxiety - ICD9: 300.00, ICD10: F41.9 - treated with fluoxetine 20 mg daily 3. Stress incontinence - ICD9: [id number], ICD10: N39.3 - Whole food balanced protein low-carb nutrition - TOPIRAMATE 25 MG TABLET - PHENTERMINE 37.5 MG TABLET - METFORMIN ER 500 MG TABLET 4. History of gestational diabetes - ICD9: V12.21, ICD10: Z86.32 - METFORMIN ER 500 MG TABLET 5. Binge-eating disorder, in full remission, mild - ICD9: 307.1, ICD10: F50.81 - TOPIRAMATE 25 MG TABLET 6. History of obesity - ICD9: V12.29, ICD10: Z86.39 History of Class 1 obesity with BMI 31.61, weight 210 lb, currently overweight - TOPIRAMATE 25 MG TABLET usually takes once daily - PHENTERMINE 37.5 MG TABLET Patient has met the weight loss requirement of 5% TBW in initial 3 months using phentermine without any adverse side effects. Pt has responded well and would like to continue use for weight management. She understands that continued use is off label for long-term management of weight control. The patient is currently enrolled in a diet and exercise program The patient has no known history of contraindications The patient is free from drug or ETHO abuse The patient is not or and is aware not to become while using this medication OARS was reviewed. PDMP website checked and validated. All prescriptions have been APPROPRIATELY filled. No suspicious activity was identified. - METFORMIN ER 500 MG TABLET twice daily -- Continue - Whole food balanced protein low-carb nutrition. Getting more protein - Given protein/whole food vegetable and fruit/high protein snack lists. - Given information on protein, carbs and processed vs whole foods,. -- Encouraged the patient to improve her physical activity. An overall goal of 150-200 minutes per week of exercise has been effective in weight loss and maintenance. We reviewed that during management she is to report any concerning side effects of any pharmacotherapy she is placed on. She understands that she will need routine follow up in the office. Prior to any virtual visits in the future she will need to check her Blood pressure, weight, and pulse. Prescription instructions reviewed with patient as applicable. Potential red flag symptoms discussed with the patient. Reviewed appropriate action plan to take if red flag symptoms occur. Patient agreeable to treatment plan. Follow up in 3 months Robyn Murrell CNP Advanced Education from the Obesity [employer] Association Medical Decision Making: Problems: Moderate: 1+ chronic illnesses with change Risk: Moderate: Drug management and Moderate risk from testing/treatment Medical Decision Making Level: 4 - Moderate Robyn Murrell, [employer]AN[employer]OL 09/25/2024 3:47 PM Signed - Whole food balanced protein, controlled carbohydrate nutrition plan - 30 g of protein 3 times a day and up to 30 g of carbs at lunch and dinner only. Breakfast - 30 gm protein with limit of 2 gm carbohydrates. Options include: Premier Protein or generic 30 gm protein 1 gm sugar or 5 eggs or 2-3 eggs and some unbreaded meat and/or cheese. No fruit, vegetables, bread, grain, yogurt, Smoothies, etc. Lunch and dinner - 30 gm protein is the goal with less than 30 gm carbohydrates Snacks - all protein or more protein than carbs Protein - no carbs Egg 1 large - 6g Egg white 1 large 3.6g 3 oz is approximately the size of a deck of cards and equals 21 g protein so 4 oz is 28 gm protein Beef, Chicken, [place], Pork, Eli 1 oz 7g Fish, Tuna Fish 1 oz 7g (Starkist tuna packet 2.6 oz 17 gm protein) Seafood (Crabmeat, Shrimp, Lobster) 1 oz 6g Protein shakes (read labels) Premier Protein or generic [employer] Equate, [employer] High Performance- 30g protein AND 1g carb - meal replacement Premier Protein powder or generic- 30 g protein, 1g carb Fairlife 30 gram protein - 30g protein AND 3g carb BOOST Glucose Control Max 30g Protein Nutritional Drink - 30g protein AND 1 carb - meal replacement Slimfast High Protein - 20g protein AND 1g carb Ensure Max Protein Nutrition Shake 30g protein AND 2 carb OWYN plant based 100 % vegan no dairy, soy, wheat/gluten 32g protein 0 net carb (not a meal replacement) Premier Protein plant protein powder - 25g protein, 0 sugar/2g carb Vanilla and chocolate (not a meal replacement) Protein AND carbs Beef/[place] Jerky 1 oz dried 10-15g protein - check carb count, can be high if sugar added Slim Devante - 6 gm protein and 4 net carb Great Value original turkey sausage sticks - 7 gm protein and 2 gm carb Ugo (at [employer]) Original smoked sausage sticks - 8 gm protein and 0 carb Imitation Crab Meat 1 oz - 2g protein AND 4g carb Milk, skim 2% or 1% 8 oz - 8g protein AND 12g carb Fairlife 2% milk 8 oz -13g protein AND 6g car [place] yogurt Full Fat [place] Yogurt 1 cup - 20.4g protein AND 9.1g carb 2% [place] Yogurt 1 cup - 22.7g protein AND 9.1g carb 0% (fat-free) [place] Yogurt - 1 cup 24g protein AND 9.3g carb Aldi Protein [place] yogurt single svg - 13/g15g protein AND 7g carb Chobani Zero Sugar single svg: - 12g protein AND 5g carb Dannon [place] Light + Fit 1 single svg - 12g protein AND 9g carb Oikos Pro single svg - 20g protein AND 8g carb Oikos Triple Zero [place] Nonfat Yogurt 1 single svg - 15g protein AND 7g carb :ratio, KETO Friendly Dairy Snack 1 single svg - 15g protein AND 2g carb :ratio Protein 1 single svg - 25g protein AND 8g carb Two Good Lowfat [place] Yogurt, [place], Lower Sugar - 12g protein AND 2g carb Yoplait Protein 1 single svg 15g protein AND 5g carb Dairy Free - [place] unsweetened [place] almond/soy 15g protein AND 3g carb Dairy Free - True Goodness by Nella coconut-based yogurt alternative 1 g protein 1 g net carb 180 phil Drinkable yogurts: Chobani drinkable 15g, 20g and 30g protein AND 18 carb (too many carbs for breakfast) Chobani Zero Sugar 10g protein 6g carbs 50 calories Oikos Pro drinkable yogurt 1 single svg - 23g protein AND 8g carb :ratio Protein 26g protein 9g carb Cheese each oz Brie 5.9g protein AND 0.1g carb Cheddar 7g protein AND 0.4g carb [place] 6.7g protein AND 0.7g carb Cream Cheese 1.7g protein AND 1.2g carb Serviceful Farms whipped [place] cream cheese (WM) 2 T 3g protein 2g carb Feta 4g protein AND 1.2g carb Mozzarella 6.3g protein AND 0.6g carb Parmesan 10g protein AND 0.9g carb [place] 7.6g protein AND 1.5g carb Cottage Cheese 1/2 c [place] 2% 13g protein 7g carb Nandini 2% 13g protein 5 g carb Good Culture 2% 14g protein 3g carb Patel?s Low Fat 12g protein AND 4g carb Legumes Lentils ? cup 9g protein AND 20g carb [place] beans ? cup 7g protein AND 20g carb Kidney, Black, [employer], Cannellini beans ? cup 8g protein AND 20g carb Chickpeas 1/2 c 6g protein AND 15g carb Soybeans 1/2 c 14g complete protein AND 8.5g carb [place] milk, unsweetened 8 oz 1g protein AND 2g carb Soy milk 8 oz 3.5g protein AND 1.6g carb Tofu 1/2 cup 10g protein AND 2.3g carb Peanut butter, natural 2 Tbsp 7-8g protein AND 4g net carbs, 190 calories PB2 powder 2 Tbsp 6g protein AND 5g carb Nuts and Seeds per oz Almonds - 5.9g protein AND 6.1g carb [place] Nuts - 4.0g protein AND 3.4g carb Cashews - 5.1g protein AND 9.2g carb Hazelnuts - 4.2g protein AND 4.7g carb Hemp seeds/hearts 3 T/30 gms - 9.5 gm complete protein and 2.5 gm carb Peanuts - 7g protein AND 4.6g carb Pecans - 2.6g protein AND 3.9g carb Pistachios - 5.8g protein AND 7.8g carb Pumpkin Seeds - 6.9g protein AND 5g carb [place] Seeds - 5.8g protein AND 5.6g carb Walnuts - 4.3g protein AND 3.8g carb Edamame Beans (soybean) snack 1 pack 11 gm complete protein 2 carb 5 (FIVE) gram carb vegetable options 1 cup raw OR ? cup cooked: Asparagus Hernandez sprouts Beets Broccoli Brussel sprouts Cabbage Carrots Cauliflower Celery [place] Eggplant Green beans Lettuce Peppers Snap peas Spaghetti squash Spinach Tomato Turnips Zucchini 15 gram carb vegetable options ? cup cooked corn or hominy ? corn on the cob, large (5 oz) ? cup cooked green peas 4.3 gm complete protein ? cup cooked [place]inton beans 1 small potato or sweet potato ? cup cooked potato, plain ? cup cooked sweet potato, plain 1 cup winter squash (pumpkin, acorn, butternut) 1 cup marinara or pasta sauce - check label ? cup tomato juice ? cup tomato puree Beans, Seeds, Nuts ? cup cooked beans (kidney, hernandez, red, green, etc.) ? cup cooked lentils ? cup baked beans 4 tablespoons nut butter <15 gram carb fruit options Berries have the lowest sugar content 1/2 medium apple - 12.5 carbs 1/2 medium avocado - 6.5 gm carbs 1/2 medium banana - 15 carbs 1/2 cup blueberries - 11 carbs - may actually help you lose weight 1/2 cup fresh cherries -11 carbs 1 medium Amena -9 carbs 1/2 cup fresh cranberries - 6.5 carbs 1/2 c grapes - 15 carbs 1/2 medium grapefruit - 10.5 carbs 1/2 cup diced honeydew melon - 8 carbs 1 medium kiwi without skin - 11 carbs 1/2 cup sliced saw -14 carbs 1 medium nectarine - 15 carbs 1 medium orange -15.5 carbs 1 medium peach -14.5 carbs 1/2 cup fresh pineapple -11 carbs 1 medium plum -7.5 carbs 1 prune - 6 carbs 1/4 c raisins - 31.25 carbs 1/2 cup raspberries -7.5 carbs 1/2 c strawberries - 12.7 carbs 1 medium tangerine -12 carbs 1/2 cup diced watermelon - 6 carbs Grains Brown rice 1/2 c 5.5g protein 24 carb White long-grain rice 1/2 c 2g protein 22.5 carb Quinoa 1/2 c 4 gm complete protein 25 carb Oatmeal, old fashioned 1/2 c 5g protein 27g carb High Protein Snack Ideas 1. Jerky 2. [place] mix without dried fruit 3. [place] roll-ups 4. [place] yogurt 5. Veggies and yogurt dip 6. Tuna 7. Hard-boiled eggs 8. Peanut butter with celery 9. Cheese slices/ Cheese Stick 10. Handful of almonds, peanuts or walnuts 11. Cottage Cheese 12. Beef sticks 13. Protein bars 14. Canned [place] 15. Pumpkin seeds 16. Nut butter 17. Protein shake or protein bar 18. Avocado and chicken salad 19. Egg muffins 20. Leftover protein or lunch meat 21. 1/2 c blended cottage cheese or [place] yogurt with dry ranch/Mrs. Dash/herb seasoning mix to make protein dip- add raw veg 22. 1/2 c blended cottage cheese with 1 Tbsp sugar-free dry cheesecake pudding mix 12g protein 10 carb 23. Pudding - 1 30 gm protein shake with 1/2 pkg sugar-free pudding 4 svgs - 7.8 gm protein, 5 carb each svg 24. SF Sunkist or Root Beer with 1-2 Tablespoons heavy whipping cream 25. Mini frozen dessert bites - layer protein yogurt, skinny syrup and crushed nuts and freeze 26. Edamame Beans (soybean) snack 1 pack (O Beans) 11 gm complete protein 2 carb Why Is Protein So Important for Weight loss? consuming more protein not only reduces body weight but enhances body composition by decreasing fat mass while preserving fat-free mass During weight loss phase protein consumption (with normal kidney function) should be 1-1.6g protein per Kilogram of body weight (1kg=2.2lbs) On average Women need to Aim for a minimum 90g protein per day Consuming higher protein can also prevent weight regain after weight loss Protein consumption increases hormones responsible for satiety (feeling full)- these include Gut hormones like Glucagon-like peptide-1 (GLP-1), Cholecystokinin (CCK), Peptide Tyrosine-Tyrosine (PYY) and decreasing the Gut hormone responsible for causing hunger Ghrelin Protein has an increased thermogenesis effect of food- which means it take more calories to break down protein when consumed compared to carbohydrates or fats Protein also prevents a losing lean mass during weight loss (lose more fat and preserve fat free mass) which helps to increase resting energy expenditure (resting metabolic rate) Every pound of muscle gasca ~ 6 kcal per pound/day vs fat gasca ~ 2kcal per pound/day Carbohydrates - Why do You Crave Them? Eating too many refined carbohyrdates (sugar beverages, pastries, bread, pizza) which raises your blood glucose levels and therefore releasing insulin which in turn causes increase in hunger Carbohydrates suppress Ghrelin quickly but does not maintain the suppression for very long therefore hunger returns more quickly Consuming carbohydrates leads to a release of Dopamine ?feel good hormone? in our brain So how do you Curb these cravings? Eating Whole Foods with more fiber - High fiber carbs are absorbed and digested slowly so it does not impact blood sugar levels as much and will help in making you feel jensen for longer; fiber also is healthy for your gut bacteria and can help with constipation. Remember- carbohydrates are not the enemy but know what a proper serving size is, choose nutritious carbohydrates and space them out between meals. Always- eat your protein first followed by your non starchy vegetables followed by your carbohydrates- it will help your body with your glucose and insulin regulation Processed Foods vs Whole Foods- Impact on Weight: People who eat Ultra Processed food tend to consume about 500 calories more per day Ultra Processed foods are considered ?Calorie Dense? so when a person feels full they have typically already over eaten and consumed more calories Whole Foods (unprocessed foods) tend to be more more filling and more Nutrient Dense Unprocessed foods can be more expensive and not realistic for everyone however when you have the choice to consume unprocessed vs Ultra processed foods always pick unprocessed. Why can't people stop eating Ultra Processed foods? They are economical and optimized for taste by [employer] - they are designed to make you want to keep eating them- they feed common cravings and bypass the mechanisms that tell your brain you are full Benefits of eating Whole Foods and cutting out Ultra Processed Foods Increased concentration and focus (decreased brain fog), improved mood, better sleep, Decrease in fatigue, improvement in gut health, decreased inflammation, Likely WEIGHT LOSS Allergies As of Date: 09/25/2024 Noted Allergy Reaction AMOXACILLIN (AMOXICILLIN) 04/09/2024 2 - Rash Date Reviewed: 09/25/2024 Reviewed by: Robyn Murrell APRN.[employer] SUPERVISOR - Fully Assessed Reason for Visit: Weight Management [3933] Primary Visit Diagnosis:Osteoarthritis of left knee, unspecified osteoarthritis type [M17.12] Other Visit Diagnoses:Anxiety [F41.9] Stress incontinence [N39.3] History of gestational diabetes [Z86.32] Binge-eating disorder, in full remission, mild [F50.814] History of obesity [Z86.39] Order(s):topiramate (TOPAMAX) 25 mg tabletTake 1 tablet by mouth two times a day.Disp: 180 tabletRfl: 1 [START ON 10/06/2024] Phentermine HCl 37.5 mg tabletTake 1 tablet by mouth daily before breakfast for 90 days. Patient should start on October 06, 2024.Disp: 90 tabletRfl: 0 Prescriptions as of 09/25/2024 - topiramate (TOPAMAX) 25 mg tablet Take 1 tablet by mouth two times a day. - Phentermine HCl 37.5 mg tablet Take 1 tablet by mouth daily before breakfast for 90 days. Patient should start on October 06, 2024. - COLLAGEN MISC - metFORMIN ER (GLUCOPHAGE XR) 500 mg 24 hr tablet Take 1 tablet by mouth two times a day. Patient should start on August 11, 2024. - clotrimazole-betamethasone (LOTRISONE) cream Apply 1 application to affected area two times a day. - FLUoxetine (PROZAC) 20 mg capsule Take 20 mg by mouth once daily. - traZODone (DESYREL) 50 mg tablet Take 100 mg by mouth daily at bedtime. 100 mg daily Problem List As Of Date 09/25/2024 Noted Resolved Pain in right shoulder [M25.511] 06/10/2015 09/18/2018 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 [D24.1] 09/15/2020 Anxiety [F41.9] 11/23/2023 Stress incontinence [N39.3] 11/23/2023 History of obesity [Z86.39] 11/23/2023 Osteoarthritis of left knee [M17.12] 12/25/2023 History of gestational diabetes [Z86.32] 12/26/2023 Binge-eating disorder, in full remission, mild *12/26/2023 Other instructions from your clinician: - Whole food balanced protein, controlled carbohydrate nutrition plan - 30 g of protein 3 times a day and up to 30 g of carbs at lunch and dinner only. Breakfast - 30 gm protein with limit of 2 gm carbohydrates. Options include: Premier Protein or generic 30 gm protein 1 gm sugar or 5 eggs or 2-3 eggs and some unbreaded meat and/or cheese. No fruit, vegetables, bread, grain, yogurt, Smoothies, etc. Lunch and dinner - 30 gm protein is the goal with less than 30 gm carbohydrates Snacks - all protein or more protein than carbs Protein - no carbs Egg 1 large - 6g Egg white 1 large 3.6g 3 oz is approximately the size of a deck of cards and equals 21 g protein so 4 oz is 28 gm protein Beef, Chicken, [place], Pork, Eli 1 oz 7g Fish, Tuna Fish 1 oz 7g (Starkist tuna packet 2.6 oz 17 gm protein) Seafood (Crabmeat, Shrimp, Lobster) 1 oz 6g Protein shakes (read labels) Premier Protein or generic [employer] Equate, Me[employer] High Performance- 30g protein AND 1g carb - meal replacement Premier Protein powder or generic- 30 g protein, 1g carb Fairlife 30 gram protein - 30g protein AND 3g carb BOOST Glucose Control Max 30g Protein Nutritional Drink - 30g protein AND 1 carb - meal replacement Slimfast High Protein - 20g protein AND 1g carb Ensure Max Protein Nutrition Shake 30g protein AND 2 carb OWYN plant based 100 % vegan no dairy, soy, wheat/gluten 32g protein 0 net carb (not a meal replacement) Premier Protein plant protein powder - 25g protein, 0 sugar/2g carb Vanilla and chocolate (not a meal replacement) Protein AND carbs Beef/[place] Jerky 1 oz dried 10-15g protein - check carb count, can be high if sugar added Slim Devante - 6 gm protein and 4 net carb Great Value original turkey sausage sticks - 7 gm protein and 2 gm carb Monica AND Hung (at [facility]) Original smoked sausage sticks - 8 gm protein and 0 carb Imitation Crab Meat 1 oz - 2g protein AND 4g carb Milk, skim 2% or 1% 8 oz - 8g protein AND 12g carb Fairlife 2% milk 8 oz -13g protein AND 6g car [place] yogurt Full Fat [place] Yogurt 1 cup - 20.4g protein AND 9.1g carb 2% [place] Yogurt 1 cup - 22.7g protein AND 9.1g carb 0% (fat-free) [place] Yogurt - 1 cup 24g protein AND 9.3g carb Aldi Protein [place] yogurt single svg - 13/g15g protein AND 7g carb Chobani Zero Sugar single svg: - 12g protein AND 5g carb Dannon [place] Light + Fit 1 single svg - 12g protein AND 9g carb Oikos Pro single svg - 20g protein AND 8g carb Oikos Triple Zero [place] Nonfat Yogurt 1 single svg - 15g protein AND 7g carb :ratio, KETO Friendly Dairy Snack 1 single svg - 15g protein AND 2g carb :ratio Protein 1 single svg - 25g protein AND 8g carb Two Good Lowfat [place] Yogurt, [place], Lower Sugar - 12g protein AND 2g carb Yoplait Protein 1 single svg 15g protein AND 5g carb Dairy Free - [place] unsweetened [place] almond/soy 15g protein AND 3g carb Dairy Free - True Goodness by [facility] coconut-based yogurt alternative 1 g protein 1 g net carb 180 phil Drinkable yogurts: Chobani drinkable 15g, 20g and 30g protein AND 18 carb (too many carbs for breakfast) Chobani Zero Sugar 10g protein 6g carbs 50 calories Oikos Pro drinkable yogurt 1 single svg - 23g protein AND 8g carb :ratio Protein 26g protein 9g carb Cheese each oz Brie 5.9g protein AND 0.1g carb Cheddar 7g protein AND 0.4g carb [place] 6.7g protein AND 0.7g carb Cream Cheese 1.7g protein AND 1.2g carb [employer] whipped [place] cream cheese (WM) 2 T 3g protein 2g carb Feta 4g protein AND 1.2g carb Mozzarella 6.3g protein AND 0.6g carb Parmesan 10g protein AND 0.9g carb Kitt[place] 7.6g protein AND 1.5g carb Cottage Cheese 1/2 c [place] 2% 13g protein 7g carb Nandini 2% 13g protein 5 g carb Good Culture 2% 14g protein 3g carb Patel?s Low Fat 12g protein AND 4g carb Legumes Lentils ? cup 9g protein AND 20g carb [place] beans ? cup 7g protein AND 20g carb Kidney, Black, [employer], Cannellini beans ? cup 8g protein AND 20g carb Chickpeas 1/2 c 6g protein AND 15g carb Soybeans 1/2 c 14g complete protein AND 8.5g carb [place] milk, unsweetened 8 oz 1g protein AND 2g carb Soy milk 8 oz 3.5g protein AND 1.6g carb Tofu 1/2 cup 10g protein AND 2.3g carb Peanut butter, natural 2 Tbsp 7-8g protein AND 4g net carbs, 190 calories PB2 powder 2 Tbsp 6g protein AND 5g carb Nuts and Seeds per oz Almonds - 5.9g protein AND 6.1g carb [place] Nuts - 4.0g protein AND 3.4g carb Cashews - 5.1g protein AND 9.2g carb Hazelnuts - 4.2g protein AND 4.7g carb Hemp seeds/hearts 3 T/30 gms - 9.5 gm complete protein and 2.5 gm carb Peanuts - 7g protein AND 4.6g carb Pecans - 2.6g protein AND 3.9g carb Pistachios - 5.8g protein AND 7.8g carb Pumpkin Seeds - 6.9g protein AND 5g carb [place] Seeds - 5.8g protein AND 5.6g carb Walnuts - 4.3g protein AND 3.8g carb Edamame Beans (soybean) snack 1 pack 11 gm complete protein 2 carb 5 (FIVE) gram carb vegetable options 1 cup raw OR ? cup cooked: Asparagus Hernandez sprouts Beets Broccoli Brussel sprouts Cabbage Carrots Cauliflower Celery [place] Eggplant Green beans Lettuce Peppers Snap peas Spaghetti squash Spinach Tomato Turnips Zucchini 15 gram carb vegetable options ? cup cooked corn or hominy ? corn on the cob, large (5 oz) ? cup cooked green peas 4.3 gm complete protein ? cup cooked [place]inton beans 1 small potato or sweet potato ? cup cooked potato, plain ? cup cooked sweet potato, plain 1 cup winter squash (pumpkin, acorn, butternut) 1 cup marinara or pasta sauce - check label ? cup tomato juice ? cup tomato puree Beans, Seeds, Nuts ? cup cooked beans (kidney, hernandez, red, green, etc.) ? cup cooked lentils ? cup baked beans 4 tablespoons nut butter <15 gram carb fruit options Berries have the lowest sugar content 1/2 medium apple - 12.5 carbs 1/2 medium avocado - 6.5 gm carbs 1/2 medium banana - 15 carbs 1/2 cup blueberries - 11 carbs - may actually help you lose weight 1/2 cup fresh cherries -11 carbs 1 medium Amena -9 carbs 1/2 cup fresh cranberries - 6.5 carbs 1/2 c grapes - 15 carbs 1/2 medium grapefruit - 10.5 carbs 1/2 cup diced honeydew melon - 8 carbs 1 medium kiwi without skin - 11 carbs 1/2 cup sliced saw -14 carbs 1 medium nectarine - 15 carbs 1 medium orange -15.5 carbs 1 medium peach -14.5 carbs 1/2 cup fresh pineapple -11 carbs 1 medium plum -7.5 carbs 1 prune - 6 carbs 1/4 c raisins - 31.25 carbs 1/2 cup raspberries -7.5 carbs 1/2 c strawberries - 12.7 carbs 1 medium tangerine -12 carbs 1/2 cup diced watermelon - 6 carbs Grains Brown rice 1/2 c 5.5g protein 24 carb White long-grain rice 1/2 c 2g protein 22.5 carb Quinoa 1/2 c 4 gm complete protein 25 carb Oatmeal, old fashioned 1/2 c 5g protein 27g carb High Protein Snack Ideas 1. Jerky 2. [place] mix without dried fruit 3. [place] roll-ups 4. [place] yogurt 5. Veggies and yogurt dip 6. Tuna 7. Hard-boiled eggs 8. Peanut butter with celery 9. Cheese slices/ Cheese Stick 10. Handful of almonds, peanuts or walnuts 11. Cottage Cheese 12. Beef sticks 13. Protein bars 14. Canned [place] 15. Pumpkin seeds 16. Nut butter 17. Protein shake or protein bar 18. Avocado and chicken salad 19. Egg muffins 20. Leftover protein or lunch meat 21. 1/2 c blended cottage cheese or [place] yogurt with dry ranch/Mrs. Dash/herb seasoning mix to make protein dip- add raw veg 22. 1/2 c blended cottage cheese with 1 Tbsp sugar-free dry cheesecake pudding mix 12g protein 10 carb 23. Pudding - 1 30 gm protein shake with 1/2 pkg sugar-free pudding 4 svgs - 7.8 gm protein, 5 carb each svg 24. SF Sunkist or Root Beer with 1-2 Tablespoons heavy whipping cream 25. Mini frozen dessert bites - layer protein yogurt, skinny syrup and crushed nuts and freeze 26. Edamame Beans (soybean) snack 1 pack (O Beans) 11 gm complete protein 2 carb Why Is Protein So Important for Weight loss? consuming more protein not only reduces body weight but enhances body composition by decreasing fat mass while preserving fat-free mass During weight loss phase protein consumption (with normal kidney function) should be 1-1.6g protein per Kilogram of body weight (1kg=2.2lbs) On average Women need to Aim for a minimum 90g protein per day Consuming higher protein can also prevent weight regain after weight loss Protein consumption increases hormones responsible for satiety (feeling full)- these include Gut hormones like Glucagon-like peptide-1 (GLP-1), Cholecystokinin (CCK), Peptide Tyrosine-Tyrosine (PYY) and decreasing the Gut hormone responsible for causing hunger Ghrelin Protein has an increased thermogenesis effect of food- which means it take more calories to break down protein when consumed compared to carbohydrates or fats Protein also prevents a losing lean mass during weight loss (lose more fat and preserve fat free mass) which helps to increase resting energy expenditure (resting metabolic rate) Every pound of muscle gasca ~ 6 kcal per pound/day vs fat gasca ~ 2kcal per pound/day Carbohydrates - Why do You Crave Them? Eating too many refined carbohyrdates (sugar beverages, pastries, bread, pizza) which raises your blood glucose levels and therefore releasing insulin which in turn causes increase in hunger Carbohydrates suppress Ghrelin quickly but does not maintain the suppression for very long therefore hunger returns more quickly Consuming carbohydrates leads to a release of Dopamine ?feel good hormone? in our brain So how do you Curb these cravings? Eating Whole Foods with more fiber - High fiber carbs are absorbed and digested slowly so it does not impact blood sugar levels as much and will help in making you feel jensen for longer; fiber also is healthy for your gut bacteria and can help with constipation. Remember- carbohydrates are not the enemy but know what a proper serving size is, choose nutritious carbohydrates and space them out between meals. Always- eat your protein first followed by your non starchy vegetables followed by your carbohydrates- it will help your body with your glucose and insulin regulation Processed Foods vs Whole Foods- Impact on Weight: People who eat Ultra Processed food tend to consume about 500 calories more per day Ultra Processed foods are considered ?Calorie Dense? so when a person feels full they have typically already over eaten and consumed more calories Whole Foods (unprocessed foods) tend to be more more filling and more Nutrient Dense Unprocessed foods can be more expensive and not realistic for everyone however when you have the choice to consume unprocessed vs Ultra processed foods always pick unprocessed. Why can't people stop eating Ultra Processed foods? They are economical and optimized for taste by [employer] - they are designed to make you want to keep eating them- they feed common cravings and bypass the mechanisms that tell your brain you are full Benefits of eating Whole Foods and cutting out Ultra Processed Foods Increased concentration and focus (decreased brain fog), improved mood, better sleep, Decrease in fatigue, improvement in gut health, decreased inflammation, Likely WEIGHT LOSS Prescriptions ordered this encounter Disp Refills Start End TOPIRAMATE 25 MG TABLET 180 * 1 09/25/2024 03/24/2025 Route: ORAL Sig: Take 1 tablet by mouth two times a day. PHENTERMINE 37.5 MG TABLET 90 t* 0 10/06/2024 01/04/2025 Cmt: >5% TBW loss in initial 3 months of phentermine use qualifying for long-term off label treatment of obesity Route: ORAL Sig: Take 1 tablet by mouth daily before breakfast for 90 days. Patient should start on October 06, 2024. Medications Discontinued During This Encounter Prescriptions - topiramate (TOPAMAX) 25 mg tablet (Discontinued) Take 1 tablet by mouth two times a day. - Phentermine HCl 37.5 mg tablet (Discontinued) Take 1 tablet by mouth daily before breakfast for 90 days. Patient should start on July 08, 2024. - OTC PRODUCT (Discontinued) DIM Disposition: Return in about 3 months (around 12/26/2024) for wt mgt F/up. Follow-up and Disposition History for Encounter Date Provider Department Center 09/25/2024 [id number] MURRELL [facility] Encounter Status:Closed by ROBNY MURRELL on 09/25/24 PROGRESS Observed: 09/25/2024 3:30 PM Status: COMPLETED Source: [facility] ID: [id number] Author: ROBYN MURRELL APRN.[facility] Service: ? Author Type: Nurse Practitioner Type: Progress Notes Filed: 09/25/2024 16:47 Note Text: Some documentation from previous visit of 07/03/2024 was copied and pasted, documentation has been reviewed and edited as necessary for today's visit. Patient Summary: Do is a 44 year old Female who presents for follow-up evaluation of obesity/weight management to treat and prevent related co-morbidities. In our previous visits we have discussed lifestyle intervention including a nutrition recommendations and physical activity optimization. Her last office visit was 3 months ago. Assessment/plan from last visit: - Metformin 500 mg tablet 1 gm at breakfast B12 - will start taking -Topiramate 25 mg tablet am - Phentermine 37.5 mg tablet am - BED- mild and in remission Interval History PT specifies the following items as new or significant updates since the last appointment: - carpal tunnel surgery right hand in May 2024 -difficult recovery. Gained weight with emotional and stress eating while recovering at home. Left carpal tunnel surgery postponed until next winter - has a lot of pain which limits activity, upcoming injection. Weight loss since last vist: +4 lbs for a total loss of 48 lbs Date: Weight: BMI: Medications: 09/25/2024 162 lb 25.37 07/03/2024 158 lb 24.75 04/09/2024 156 lb 24.43 02/13/2024 163 lb 25.53 12/26/2023 160 lb 25.18 Metformin, Topiramate, Phentermine 04/06/2021 210 lb 31.61 Tirzepatide escalation to 15 mg LD 11/2023 WC: 32.5 in 5% weight loss = 153 lbs, 10% weight loss = 145 lbs Anti-obesity medications: meformin Benefit:increased fullness Adverse effects: occasional diarrhea Anti-obesity medications: Phentermine. Benefit:decreased appetite Adverse effects: none Anti-obesity medications: Topiramate. Benefit:decreased food thoughts Adverse effects: possible hair loss Weight promoting medications: None Previous Diet (initial appointment): Awake - B - 629-7 - 30 gm protein shake or granola or fruit with coffee with with flavoring syrup and sweetened creamer. S - 10-0 pretzels or apple or veg or HB eggs L - 1200 if work - Salad or 1/2 sandwich or soup or pizza/home - protein shake and fruit or veg or yogurt and granola S - none D - 4426-8993 protein and veg and small carb - potato/pasta/corn/rice No dessert S - rare - popcorn or ice cream Fluids: water Bedtime - 3512-3189 Eating Disorder binge eating Dietary changes: B - 8-9 am Usually 30 gm protein shake S - none or HB egg or jerky L - 1200 small portion of whatever is catered in her office for lunch - chicken breast/lasagne/salad and sometimes adds protein shake or protein shake and an egg S - none D - 1800 meat and veg. Sometimes rice or potato. Or protein shake. S - none Fluids - protein shakes, water, coffee Current Barriers: emotional eating, stress eating - after surgery while recovery from surgery at home, eating high-calorie foods, and reduced physical activity Exercise: decreased due to carpal tunnel surgery - unable to do [employer] Regular exercise: very limited - barn chores but no routine exercise Strength/resistance exercise:yes Barriers to regular exercise? no Work-related activity: depends on the day, mostly sedentary unless she is helping on the floor. 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 Gym Membership: yes Activity Tracker: yes average steps per day 3,000-10,000 Stress: stable - work, personal Sleep: decreased to 6 hours due to carpal tunnel pain, prn Trazadone CrCl cannot be calculated (No successful lab value found.). 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 Patient should start on July 08, 2024. 90 tablet 0 metFORMIN ER (GLUCOPHAGE XR) 500 mg 24 hr tablet Take 1 tablet by mouth two times a day. Patient should start on August 11, 2024. 180 tablet 3 clotrimazole-betamethasone (LOTRISONE) cream Apply 1 application to affected area two times a day. 15 g 0 topiramate (TOPAMAX) 25 mg tablet Take 1 tablet by mouth two times a day. 180 tablet 1 FLUoxetine (PROZAC) 20 mg capsule Take 20 mg by mouth once daily. traZODone (DESYREL) 50 mg tablet Take 100 mg by mouth daily at bedtime. 100 mg daily No current facility-administered medications for this visit. 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 Physical Exam Constitutional: She appears healthy. No distress. Results: recent labs reviewed with the patient. Outside labs: 12/27/2023 [facility] CBC WNL; CMP WNL; Hgba1c 5.0; Total Chol 159: HDL 75: LDL 74: TG 50:; TSH 0.52 01/2023 - CBC, lipids, CBC WNL 09/26/2023 Hgba1c 5.0 Anti-Obesity Medications >Phentermine: No uncontrolled HTN, No CVD Hx or hx of seizure disorder. No MAOI inhibitor use. No drug abuse hx. Crcl > 15. >Topiramate/zonisamide: No seizure, kidney stone or glaucoma hx. No hx of migraines, or hx of poor sleep. Hysterectomy >Qsymia: see above >Contrave: No uncontrolled HTN or hx of seizure disorder. No MAOI inhibitor use. No opiate use. >Saxenda/Wegovy/Ozempic: Cost. Ins coverage? >Metformin: eGFR > 30. No contraindications or medication interactions. Assessment/Plan: Do Olson is a 44 year old yo with Class I obesity who presented today for follow up for supervised weight loss to treat and prevent related co-morbidities. 1. Osteoarthritis of left knee, unspecified osteoarthritis type - ICD9: 715.96, ICD10: M17.12 (primary diagnosis) - Whole food balanced protein low-carb nutrition - TOPIRAMATE 25 MG TABLET once daily - PHENTERMINE 37.5 MG TABLET - METFORMIN ER 500 MG TABLET 2. Anxiety - ICD9: 300.00, ICD10: F41.9 - treated with fluoxetine 20 mg daily 3. Stress incontinence - ICD9: [id number], ICD10: N39.3 - Whole food balanced protein low-carb nutrition - TOPIRAMATE 25 MG TABLET - PHENTERMINE 37.5 MG TABLET - METFORMIN ER 500 MG TABLET 4. History of gestational diabetes - ICD9: V12.21, ICD10: Z86.32 - METFORMIN ER 500 MG TABLET 5. Binge-eating disorder, in full remission, mild - ICD9: 307.1, ICD10: F50.81 - TOPIRAMATE 25 MG TABLET 6. History of obesity - ICD9: V12.29, ICD10: Z86.39 History of Class 1 obesity with BMI 31.61, weight 210 lb, currently overweight - TOPIRAMATE 25 MG TABLET usually takes once daily - PHENTERMINE 37.5 MG TABLET Patient has met the weight loss requirement of 5% TBW in initial 3 months using phentermine without any adverse side effects. Pt has responded well and would like to continue use for weight management. She understands that continued use is off label for long-term management of weight control. The patient is currently enrolled in a diet and exercise program The patient has no known history of contraindications The patient is free from drug or ETHO abuse The patient is not or and is aware not to become while using this medication OARS was reviewed. PDMP website checked and validated. All prescriptions have been APPROPRIATELY filled. No suspicious activity was identified. - METFORMIN ER 500 MG TABLET twice daily -- Continue - Whole food balanced protein low-carb nutrition. Getting more protein - Given protein/whole food vegetable and fruit/high protein snack lists. - Given information on protein, carbs and processed vs whole foods,. -- Encouraged the patient to improve her physical activity. An overall goal of 150-200 minutes per week of exercise has been effective in weight loss and maintenance. We reviewed that during management she is to report any concerning side effects of any pharmacotherapy she is placed on. She understands that she will need routine follow up in the office. Prior to any virtual visits in the future she will need to check her Blood pressure, weight, and pulse. Prescription instructions reviewed with patient as applicable. Potential red flag symptoms discussed with the patient. Reviewed appropriate action plan to take if red flag symptoms occur. Patient agreeable to treatment plan. Follow up in 3 months Robyn Murrell CNP Advanced Education from the [employer] Medical Decision Making: Problems: Moderate: 1+ chronic illnesses with change Risk: Moderate: Drug management and Moderate risk from testing/treatment Medical Decision Making Level: 4 - Moderate PROGRESS Observed: 07/03/2024 2:30 PM Status: COMPLETED Source: [facility] ID: [id number] Author: ROBYN MURRELL APRN.[facility] Service: ? Author Type: Nurse Practitioner Type: Progress Notes Filed: 07/03/2024 20:40 Note Text: Some documentation from previous visit of 04/09/2024 was copied and pasted, documentation has been reviewed and edited as necessary for today's visit. Patient Summary: Do is a 43 year old Female who presents for follow-up evaluation of obesity/weight management to treat and prevent related co-morbidities. In our previous visits we have discussed lifestyle intervention including a nutrition recommendations and physical activity optimization. Her last office visit was 2 months ago. Assessment/plan from last visit: - Metformin 500 mg tablet twice a day with meals -Topiramate 25 mg tablet am and sometimes before dinner - Phentermine 37.5 mg tablet am - BED- mild and in remission Interval History PT specifies the following items as new or significant updates since the last appointment: - carpal tunnel surgery right hand last month. Left next few month. has hip labrum surgery next week Weight loss since last vist: +2 lbs for a total loss of 52 lbs Date: Weight: BMI: Medications: 07/03/2024 158 lb 24.75 04/09/2024 156 lb 24.43 02/13/2024 163 lb 25.53 12/26/2023 160 lb 25.18 Metformin, Topiramate, Phentermine 04/06/2021 210 lb 31.61 Tirzepatide escalation to 15 mg LD 11/2023 WC: 32.5 in 5% weight loss = 153 lbs, 10% weight loss = 145 lbs Anti-obesity medications: meformin Benefit:increased fullness Adverse effects: occasional diarrhea Anti-obesity medications: Phentermine. Benefit:decreased appetite Adverse effects: none Anti-obesity medications: Topiramate. Benefit:decreased food thoughts Adverse effects: possible hair loss Weight promoting medications: None Previous Diet (initial appointment): - B - 629-7 - 30 gm protein shake or granola or fruit with coffee with with flavoring syrup and sweetened creamer. S - 10-1030 pretzels or apple or veg or HB eggs L - 1200 if work - Salad or 1/2 sandwich or soup or pizza/home - protein shake and fruit or veg or yogurt and granola S - none D - 7959-0820 protein and veg and small carb - potato/pasta/corn/rice No dessert S - rare - popcorn or ice cream Fluids: water Bedtime - 8847-6225 Eating Disorder binge eating Dietary changes: B - 8-9 am Sometimes 30 gm protein shake but sometimes only has coffee with flavored creamer and sometimes HB egg S - none or HB egg L - 1200 small portion of whatever is catered in her office for lunch - chicken breast/lasagne/salad and sometimes adds protein shake S - none D - 1800 meat and veg. Sometimes rice or potato S - none Fluids - protein shakes, water, coffee Current Barriers: reduced physical activity Exercise: decreased due to carpal tunnel surgery - unable to do CrossFit Regular exercise: yes - barn chores but no routine exercise Strength/resistance exercise:yes Barriers to regular exercise? no Work-related activity: depends on the day, mostly sedentary unless she is helping on the floor. 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 15 g 0 topiramate (TOPAMAX) 25 mg tablet Take 1 tablet by mouth two times a day. 180 tablet 1 Phentermine HCl 37.5 mg tablet Take 1 tablet by mouth daily before breakfast for 90 days. 90 tablet 0 cyanocobalamin 1,000 mcg/mL inject 1000mg INTRAMUSCULARLY ONCE monthly metFORMIN ER (GLUCOPHAGE XR) 500 mg 24 hr tablet Take 1 tablet by mouth two times a day. 180 tablet 1 citrull/argin/pine xt/vishnu hip (RISTELA ORAL) Take by mouth once daily. FLUoxetine (PROZAC) 20 mg capsule Take 20 mg by mouth once daily. Lactobacillus acidophilus (PROBIOTIC ORAL) Take by mouth. Vaginal health traZODone (DESYREL) 50 mg tablet Take 50 mg by mouth daily at bedtime. No current facility-administered medications for this visit. 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 Resting HR 86 Physical Exam Constitutional: She appears healthy. No distress. Results: recent labs reviewed with the patient. Outside labs: 12/27/2023 WC CBC WNL; CMP WNL; Hgba1c 5.0; Total Chol 159: HDL 75: LDL 74: TG 50:; TSH 0.52 01/2023 - CBC, lipids, CBC WNL 09/26/2023 Hgba1c 5.0 Anti-Obesity Medications >Phentermine: No uncontrolled HTN, No CVD Hx or hx of seizure disorder. No MAOI inhibitor use. No drug abuse hx. Crcl > 15. >Topiramate/zonisamide: No seizure, kidney stone or glaucoma hx. No hx of migraines, or hx of poor sleep. Hysterectomy >Qsymia: see above >Contrave: No uncontrolled HTN or hx of seizure disorder. No MAOI inhibitor use. No opiate use. >Saxenda/Wegovy/Ozempic: Cost. Ins coverage? >Metformin: eGFR > 30. No contraindications or medication interactions. Assessment/Plan: Do Olson is a 43 year old yo with Class I obesity who presented today for follow up for supervised weight loss to treat and prevent related co-morbidities. 1. Osteoarthritis of left knee, unspecified osteoarthritis type - ICD9: 715.96, ICD10: M17.12 (primary diagnosis) - Whole food balanced protein low-carb nutrition - TOPIRAMATE 25 MG TABLET once daily - PHENTERMINE 37.5 MG TABLET - METFORMIN ER 500 MG TABLET 2. Anxiety - ICD9: 300.00, ICD10: F41.9 - treated with fluoxetine 20 mg daily 3. Stress incontinence - ICD9: [id number], ICD10: N39.3 - Whole food balanced protein low-carb nutrition - TOPIRAMATE 25 MG TABLET - PHENTERMINE 37.5 MG TABLET - METFORMIN ER 500 MG TABLET 4. History of gestational diabetes - ICD9: V12.21, ICD10: Z86.32 - METFORMIN ER 500 MG TABLET 5. Binge-eating disorder, in full remission, mild - ICD9: 307.1, ICD10: F50.81 - TOPIRAMATE 25 MG TABLET 6. History of obesity - ICD9: V12.29, ICD10: Z86.39 History of Class 1 obesity with BMI 31.61, weight 210 lb, currently overweight - TOPIRAMATE 25 MG TABLET usually takes once daily - PHENTERMINE 37.5 MG TABLET The patient is currently enrolled in a diet and exercise program The patient has no known history of contraindications The patient is free from drug or ETHO abuse The patient is not or and is aware not to become while using this medication OARS was reviewed. PDMP website checked and validated. All prescriptions have been APPROPRIATELY filled. No suspicious activity was identified. - METFORMIN ER 500 MG TABLET twice daily -- Continue - Whole food balanced protein low-carb nutrition. Inadequate daily protein intake. Reinforced need for protein and benefits. Specific nutrition suggestions given. - 30 grams of protein for your first meal of the day. Given protein/whole food vegetable and fruit/high protein snack lists. -- Encouraged the patient to improve her physical activity. An overall goal of 150-200 minutes per week of exercise has been effective in weight loss and maintenance. We reviewed that during management she is to report any concerning side effects of any pharmacotherapy she is placed on. She understands that she will need routine follow up in the office. Prior to any virtual visits in the future she will need to check her Blood pressure, weight, and pulse. Prescription instructions reviewed with patient as applicable. Potential red flag symptoms discussed with the patient. Reviewed appropriate action plan to take if red flag symptoms occur. Patient agreeable to treatment plan. Follow up in 3 and 6 months Robyn Murrell CNP Advanced Education from the [employer] Medical Decision Making: Problems: Moderate: 1+ chronic illnesses with change Risk: Moderate: Drug management and Moderate risk from testing/treatment Medical Decision Making Level: 4 - Moderate CNOV Observed: 07/03/2024 2:30 PM Status: COMPLETED Source: [facility] Office Visit ([facility]GY[facility]) DO OLSON ([id number]) 1980 F Date Time Provider Department 07/03/24 2:30 PM ROBYN MURRELL During your visit today, we recorded the following information about you: Pulse Blood pressure Weight 95/minute 113/77 71.7 kg Robyn Murrell APRN.CNP 07/03/2024 8:40 PM Signed Some documentation from previous visit of 04/09/2024 was copied and pasted, documentation has been reviewed and edited as necessary for today's visit. Patient Summary: Do is a 43 year old Female who presents for follow-up evaluation of obesity/weight management to treat and prevent related co-morbidities. In our previous visits we have discussed lifestyle intervention including a nutrition recommendations and physical activity optimization. Her last office visit was 2 months ago. Assessment/plan from last visit: - Metformin 500 mg tablet twice a day with meals -Topiramate 25 mg tablet am and sometimes before dinner - Phentermine 37.5 mg tablet am - BED- mild and in remission Interval History PT specifies the following items as new or significant updates since the last appointment: - carpal tunnel surgery right hand last month. Left next few month. has hip labrum surgery next week Weight loss since last vist: +2 lbs for a total loss of 52 lbs Date: Weight: BMI: Medications: 07/03/2024 158 lb 24.75 04/09/2024 156 lb 24.43 02/13/2024 163 lb 25.53 12/26/2023 160 lb 25.18 Metformin, Topiramate, Phentermine 04/06/2021 210 lb 31.61 Tirzepatide escalation to 15 mg LD 11/2023 WC: 32.5 in 5% weight loss = 153 lbs, 10% weight loss = 145 lbs Anti-obesity medications: meformin Benefit:increased fullness Adverse effects: occasional diarrhea Anti-obesity medications: Phentermine. Benefit:decreased appetite Adverse effects: none Anti-obesity medications: Topiramate. Benefit:decreased food thoughts Adverse effects: possible hair loss Weight promoting medications: None Previous Diet (initial appointment): Awake - 5-30 B - 0630-7 - 30 gm protein shake or granola or fruit with coffee with with flavoring syrup and sweetened creamer. S - 10-1030 pretzels or apple or veg or HB eggs L - 1200 if work - Salad or 1/2 sandwich or soup or pizza/home - protein shake and fruit or veg or yogurt and granola S - none D - [id number] protein and veg and small carb - potato/pasta/corn/rice No dessert S - rare - popcorn or ice cream Fluids: water Bedtime - [id number] Eating Disorder binge eating Dietary changes: B - 8-9 am Sometimes 30 gm protein shake but sometimes only has coffee with flavored creamer and sometimes HB egg S - none or HB egg L - 1200 small portion of whatever is catered in her office for lunch - chicken breast/lasagne/salad and sometimes adds protein shake S - none D - 1800 meat and veg. Sometimes rice or potato S - none Fluids - protein shakes, water, coffee Current Barriers: reduced physical activity Exercise: decreased due to carpal tunnel surgery - unable to do CrossFit Regular exercise: yes - barn chores but no routine exercise Strength/resistance exercise:yes Barriers to regular exercise? no Work-related activity: depends on the day, mostly sedentary unless she is helping on the floor. 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 15 g 0 topiramate (TOPAMAX) 25 mg tablet Take 1 tablet by mouth two times a day. 180 tablet 1 Phentermine HCl 37.5 mg tablet Take 1 tablet by mouth daily before breakfast for 90 days. 90 tablet 0 cyanocobalamin 1,000 mcg/mL inject 1000mg INTRAMUSCULARLY ONCE monthly metFORMIN ER (GLUCOPHAGE XR) 500 mg 24 hr tablet Take 1 tablet by mouth two times a day. 180 tablet 1 citrull/argin/pine xt/vishnu hip (RISTELA ORAL) Take by mouth once daily. FLUoxetine (PROZAC) 20 mg capsule Take 20 mg by mouth once daily. Lactobacillus acidophilus (PROBIOTIC ORAL) Take by mouth. Vaginal health traZODone (DESYREL) 50 mg tablet Take 50 mg by mouth daily at bedtime. No current facility-administered medications for this visit. 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 Resting HR 86 Physical Exam Constitutional: She appears healthy. No distress. Results: recent labs reviewed with the patient. Outside labs: 12/27/2023 [facility] CBC WNL; CMP WNL; Hgba1c 5.0; Total Chol 159: HDL 75: LDL 74: TG 50:; TSH 0.52 01/2023 - CBC, lipids, CBC WNL 09/26/2023 Hgba1c 5.0 Anti-Obesity Medications >Phentermine: No uncontrolled HTN, No CVD Hx or hx of seizure disorder. No MAOI inhibitor use. No drug abuse hx. Crcl > 15. >Topiramate/zonisamide: No seizure, kidney stone or glaucoma hx. No hx of migraines, or hx of poor sleep. Hysterectomy >Qsymia: see above >Contrave: No uncontrolled HTN or hx of seizure disorder. No MAOI inhibitor use. No opiate use. >Saxenda/Wegovy/Ozempic: Cost. Ins coverage? >Metformin: eGFR > 30. No contraindications or medication interactions. Assessment/Plan: Do Olson is a 43 year old yo with Class I obesity who presented today for follow up for supervised weight loss to treat and prevent related co-morbidities. 1. Osteoarthritis of left knee, unspecified osteoarthritis type - ICD9: 715.96, ICD10: M17.12 (primary diagnosis) - Whole food balanced protein low-carb nutrition - TOPIRAMATE 25 MG TABLET once daily - PHENTERMINE 37.5 MG TABLET - METFORMIN ER 500 MG TABLET 2. Anxiety - ICD9: 300.00, ICD10: F41.9 - treated with fluoxetine 20 mg daily 3. Stress incontinence - ICD9: [id number], ICD10: N39.3 - Whole food balanced protein low-carb nutrition - TOPIRAMATE 25 MG TABLET - PHENTERMINE 37.5 MG TABLET - METFORMIN ER 500 MG TABLET 4. History of gestational diabetes - ICD9: V12.21, ICD10: Z86.32 - METFORMIN ER 500 MG TABLET 5. Binge-eating disorder, in full remission, mild - ICD9: 307.1, ICD10: F50.81 - TOPIRAMATE 25 MG TABLET 6. History of obesity - ICD9: V12.29, ICD10: Z86.39 History of Class 1 obesity with BMI 31.61, weight 210 lb, currently overweight - TOPIRAMATE 25 MG TABLET usually takes once daily - PHENTERMINE 37.5 MG TABLET The patient is currently enrolled in a diet and exercise program The patient has no known history of contraindications The patient is free from drug or ETHO abuse The patient is not or and is aware not to become while using this medication OARS was reviewed. PDMP website checked and validated. All prescriptions have been APPROPRIATELY filled. No suspicious activity was identified. - METFORMIN ER 500 MG TABLET twice daily -- Continue - Whole food balanced protein low-carb nutrition. Inadequate daily protein intake. Reinforced need for protein and benefits. Specific nutrition suggestions given. - 30 grams of protein for your first meal of the day. Given protein/whole food vegetable and fruit/high protein snack lists. -- Encouraged the patient to improve her physical activity. An overall goal of 150-200 minutes per week of exercise has been effective in weight loss and maintenance. We reviewed that during management she is to report any concerning side effects of any pharmacotherapy she is placed on. She understands that she will need routine follow up in the office. Prior to any virtual visits in the future she will need to check her Blood pressure, weight, and pulse. Prescription instructions reviewed with patient as applicable. Potential red flag symptoms discussed with the patient. Reviewed appropriate action plan to take if red flag symptoms occur. Patient agreeable to treatment plan. Follow up in 3 and 6 months Robyn Murrell CNP Advanced Education from the Obesity [employer] Association Medical Decision Making: Problems: Moderate: 1+ chronic illnesses with change Risk: Moderate: Drug management and Moderate risk from testing/treatment Medical Decision Making Level: 4 - Moderate Robyn Murrell APRN.CNP 07/03/2024 3:11 PM Signed The Role of Exercise in Weight Management No one can deny the psychological and physical benefits of exercise. Regular physical exercise aids in stress reduction, blood sugar control, cholesterol reduction, and improved sleep. It?s also beneficial for weight control. both aerobic and strength training is beneficial for weight control. The ACSM ([employer] [employer]) advises 200-300 minutes of moderate-intensity exercise to lose weight and sustain the loss. Aerobic exercise (walking, jogging, swimming, cycling) uses glucose (from glycogen) and triglycerides (from fat in storage) for energy. Strength or resistance training helps build muscle, which is more metabolic at rest than fat tissue. Both are beneficial to weight management. According to the 2018 Physical Activity Guidelines for Americans, Americans are advised to do a minimum of 30 minutes of physical activity most days of the week. This equates to 150 minutes of moderate activity or 75 minutes of vigorous exercise per week for general health. This should include both aerobic and strength training exercises. However, without calorie restriction, this isn?t enough for weight loss or weight maintenance in most people. Currently, 53 % of Americans over 18 do adequate aerobic exercise while only 23% get both aerobic and muscle-strengthening activity. Most [place] adults are still too sedentary. A sedentary lifestyle is associated with cardiovascular disease, type 2 diabetes, and certain types of cancer including endometrial, colon, and lung cancer. Which types of exercise aid in weight control? How much should I do? In addition to caloric restriction, both aerobic and strength training is beneficial for weight control. The ACSM ([employer] [employer]) advises 200-300 minutes of moderate-intensity exercise to lose weight and sustain the loss.Moderate-intensity exercises include brisk walking, jogging, using a rowing machine, or doing a 50-60 minute dance class. To lead shop operator the level of intensity you should aim for, think of it this way: a person should be able to carry a conversation but not be able to sing. HIIT (high-intensity interval training) is one method of exercise that may be beneficial to those who are trying to lose weight and are short on time. One way to do HIIT involves doing high-intensity exercise (such as sprinting) for 60 seconds followed by 60 seconds of low-intensity exercise (walking) or rest. Exercises are repeated 8 times with rest for a few minutes, then repeated until 30 minutes of exercise is completed. A meta-analysis of 39 studies with 671 participants showed that HIIT reduced total, abdominal, and visceral fat mass in both men and women aged 38.8 +/- 14.4. Running was more effective than cycling in lowering total and visceral fat mass while low-intensity exercise (like walking) also resulted in abdominal and visceral fat loss. The latter took more time. HIIT training is typically done a few days a week. Individuals are advised to choose less intense exercises in between HIIT training days. More muscle matters! One of the biggest reasons (no pun intended) that adults gain weight over time is due to muscle loss. A comparison study of various methods of exercise was performed with older subjects with obesity. Subjects got randomly assigned to a weight control program along with one of four programs: aerobic training, resistance training, combined aerobic and resistance training, or a control group (no treatment). The initial outcome was the change in Physical Performance Test Scores from the start to 6 months after the study began, while secondary outcomes included changes in body composition, bone mineral density, and physical function. There were 141 total subjects that finished the study. Physical Performance Test score was higher in the combination group than in the aerobic and resistance groups. Bodyweight decreased in all exercise groups (9%) but not in the control group. Lean mass and bone density were maintained the most in the combination and resistance groups. Strength also increased in the resistance training and combination training groups. As muscle is more metabolic than fat, maintaining muscle mass is important to long-term weight control. It?s important for individuals who have been sedentary to check with their doctors before embarking on a new exercise program. While HIIT training may be appropriate for younger individuals and/or those without comorbidities like cardiovascular disease, it?s important to find an exercise that?s enjoyable. Physical activities could include: Multiple bouts of moderately paced walking a few times per day. Use of an elliptical or rowing machine or a water aerobics class A walking video to use at home Playing tennis or pickleball Trying a regular or stationary bike or a spin class Joining a kickboxing or Katia class at a gym or rec center Resistance training may include: Use of stretch bands Multiple reps of small hand weights Use of nautilus machines A pilates class (in person or at home) Allergies As of Date: 07/03/2024 Noted Allergy Reaction AMOXACILLIN (AMOXICILLIN) 04/09/2024 2 - Rash Date Reviewed: 07/03/2024 Reviewed by: Robyn Murrell APRN.ORDER TAKERS SUPERVISOR - Fully Assessed Reason for Visit: Weight Management [3933] Primary Visit Diagnosis:Osteoarthritis of left knee, unspecified osteoarthritis type [M17.12] Other Visit Diagnoses:Anxiety [F41.9] Stress incontinence [N39.3] History of gestational diabetes [Z86.32] Binge-eating disorder, in full remission, mild [F50.814] History of obesity [Z86.39] Order(s):[START ON 07/08/2024] Phentermine HCl 37.5 mg tabletTake 1 tablet by mouth daily before breakfast for 90 days. Patient should start on July 08, 2024.Disp: 90 tabletRfl: 0 [START ON 08/11/2024] metFORMIN ER (GLUCOPHAGE XR) 500 mg 24 hr tabletTake 1 tablet by mouth two times a day. Patient should start on August 11, 2024.Disp: 180 tabletRfl: 3 Prescriptions as of 07/03/2024 - OTC PRODUCT DIM - COLLAGEN MISC - Phentermine HCl 37.5 mg tablet Take 1 tablet by mouth daily before breakfast for 90 days. Patient should start on July 08, 2024. - metFORMIN ER (GLUCOPHAGE XR) 500 mg 24 hr tablet Take 1 tablet by mouth two times a day. Patient should start on August 11, 2024. - clotrimazole-betamethasone (LOTRISONE) cream Apply 1 application to affected area two times a day. - topiramate (TOPAMAX) 25 mg tablet Take 1 tablet by mouth two times a day. - FLUoxetine (PROZAC) 20 mg capsule Take 20 mg by mouth once daily. - traZODone (DESYREL) 50 mg tablet Take 100 mg by mouth daily at bedtime. 100 mg daily Problem List As Of Date 07/03/2024 Noted Resolved Pain in right shoulder [M25.511] 06/10/2015 09/18/2018 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 [D24.1] 09/15/2020 Anxiety [F41.9] 11/23/2023 Stress incontinence [N39.3] 11/23/2023 History of obesity [Z86.39] 11/23/2023 Osteoarthritis of left knee [M17.12] 12/25/2023 History of gestational diabetes [Z86.32] 12/26/2023 Binge-eating disorder, in full remission, mild *12/26/2023 Other instructions from your clinician: The Role of Exercise in Weight Management No one can deny the psychological and physical benefits of exercise. Regular physical exercise aids in stress reduction, blood sugar control, cholesterol reduction, and improved sleep. It?s also beneficial for weight control. both aerobic and strength training is beneficial for weight control. The ACSM ([employer] [employer]) advises 200-300 minutes of moderate-intensity exercise to lose weight and sustain the loss. Aerobic exercise (walking, jogging, swimming, cycling) uses glucose (from glycogen) and triglycerides (from fat in storage) for energy. Strength or resistance training helps build muscle, which is more metabolic at rest than fat tissue. Both are beneficial to weight management. According to the 2018 Physical Activity Guidelines for Americans, Americans are advised to do a minimum of 30 minutes of physical activity most days of the week. This equates to 150 minutes of moderate activity or 75 minutes of vigorous exercise per week for general health. This should include both aerobic and strength training exercises. However, without calorie restriction, this isn?t enough for weight loss or weight maintenance in most people. Currently, 53 % of Americans over 18 do adequate aerobic exercise while only 23% get both aerobic and muscle-strengthening activity. Most [place] adults are still too sedentary. A sedentary lifestyle is associated with cardiovascular disease, type 2 diabetes, and certain types of cancer including endometrial, colon, and lung cancer. Which types of exercise aid in weight control? How much should I do? In addition to caloric restriction, both aerobic and strength training is beneficial for weight control. The ACSM ([employer]) advises 200-300 minutes of moderate-intensity exercise to lose weight and sustain the loss.Moderate-intensity exercises include brisk walking, jogging, using a rowing machine, or doing a 50-60 minute dance class. To lead shop operator the level of intensity you should aim for, think of it this way: a person should be able to carry a conversation but not be able to sing. HIIT (high-intensity interval training) is one method of exercise that may be beneficial to those who are trying to lose weight and are short on time. One way to do HIIT involves doing high-intensity exercise (such as sprinting) for 60 seconds followed by 60 seconds of low-intensity exercise (walking) or rest. Exercises are repeated 8 times with rest for a few minutes, then repeated until 30 minutes of exercise is completed. A meta-analysis of 39 studies with 671 participants showed that HIIT reduced total, abdominal, and visceral fat mass in both men and women aged 38.8 +/- 14.4. Running was more effective than cycling in lowering total and visceral fat mass while low-intensity exercise (like walking) also resulted in abdominal and visceral fat loss. The latter took more time. HIIT training is typically done a few days a week. Individuals are advised to choose less intense exercises in between HIIT training days. More muscle matters! One of the biggest reasons (no pun intended) that adults gain weight over time is due to muscle loss. A comparison study of various methods of exercise was performed with older subjects with obesity. Subjects got randomly assigned to a weight control program along with one of four programs: aerobic training, resistance training, combined aerobic and resistance training, or a control group (no treatment). The initial outcome was the change in Physical Performance Test Scores from the start to 6 months after the study began, while secondary outcomes included changes in body composition, bone mineral density, and physical function. There were 141 total subjects that finished the study. Physical Performance Test score was higher in the combination group than in the aerobic and resistance groups. Bodyweight decreased in all exercise groups (9%) but not in the control group. Lean mass and bone density were maintained the most in the combination and resistance groups. Strength also increased in the resistance training and combination training groups. As muscle is more metabolic than fat, maintaining muscle mass is important to long-term weight control. It?s important for individuals who have been sedentary to check with their doctors before embarking on a new exercise program. While HIIT training may be appropriate for younger individuals and/or those without comorbidities like cardiovascular disease, it?s important to find an exercise that?s enjoyable. Physical activities could include: Multiple bouts of moderately paced walking a few times per day. Use of an elliptical or rowing machine or a water aerobics class A walking video to use at home Playing tennis or pickleball Trying a regular or stationary bike or a spin class Joining a kickboxing or Katia class at a gym or rec center Resistance training may include: Use of stretch bands Multiple reps of small hand weights Use of nautTidyClubus machines A pilates class (in person or at home) Prescriptions ordered this encounter Disp Refills Start End PHENTERMINE 37.5 MG TABLET 90 t* 0 07/08/2024 10/06/2024 Cmt: .wtphen Route: ORAL Sig: Take 1 tablet by mouth daily before breakfast for 90 days. Patient should start on July 08, 2024. METFORMIN ER 500 MG TABLET,EXTENDED * 180 * 3 08/11/2024 08/11/2025 Route: ORAL Sig: Take 1 tablet by mouth two times a day. Patient should start on August 11, 2024. Medications Discontinued During This Encounter Prescriptions - metFORMIN ER (GLUCOPHAGE XR) 500 mg 24 hr tablet (Discontinued) Take 1 tablet by mouth two times a day. - Phentermine HCl 37.5 mg tablet (Discontinued) Take 1 tablet by mouth daily before breakfast for 90 days. - cyanocobalamin 1,000 mcg/mL (Discontinued) Reported on 07/03/2024 - citrull/argin/pine xt/vishnu hip (RISTELA ORAL) (Discontinued) Reported on 07/03/2024 - Lactobacillus acidophilus (PROBIOTIC ORAL) (Discontinued) Reported on 07/03/2024 Encounter Status:Closed by ROBYN MURRELL on 07/03/24 CNOV Observed: 04/09/2024 11:30 AM Status: COMPLETED Source: [facility] Office Visit (SHAINAGYWM) DO OLSON ([id number]) 1980 F Date Time Provider Department 04/09/24 11:30 AM ROBYN MURRELL During your visit today, we recorded the following information about you: Pulse Blood pressure Weight 85/minute 122/76 70.8 kg Robyn Murrell APRN.CNP 04/09/2024 7:51 PM Signed Some documentation from previous visit of 02/13/2024 was copied and pasted, documentation has been reviewed and edited as necessary for today's visit. Patient Summary: Do is a 43 year old Female who presents for follow-up evaluation of obesity/weight management to treat and prevent related co-morbidities. In our previous visits we have discussed lifestyle intervention including a nutrition recommendations and physical activity optimization. Her last office visit was 8 weeks ago. Assessment/plan from last visit: - Metformin 500 mg tablet twice a day with meals -Topiramate 25 mg tablet am and sometimes before dinner - Phentermine 37.5 mg tablet am - BED- mild and in remission Interval History PT specifies the following items as new or significant updates since the last appointment: - carpal tunnel pain - scheduled for surgery after has hip labrum surgery Weight loss since last vist: 7 lbs for a total loss of 54 lbs Date: Weight: BMI: Medications: 04/09/2024 156 lb 24.43 02/13/2024 163 lb 25.53 12/26/2023 160 lb 25.18 Metformin, Topiramate, Phentermine 04/06/2021 210 lb 31.61 Tirzepatide escalation to 15 mg LD 11/2023 WC: 32.5 in 5% weight loss = 153 lbs, 10% weight loss = 145 lbs Anti-obesity medications: meformin Benefit:increased fullness Adverse effects: diarrhea Anti-obesity medications: Phentermine. Benefit:decreased appetite Adverse effects: none Anti-obesity medications: Topiramate. Benefit:decreased food thoughts Adverse effects: none Weight promoting medications: None Previous Diet (initial appointment): B - 629-7 - 30 gm protein shake or granola or fruit with coffee with with flavoring syrup and sweetened creamer. S - 10-0 pretzels or apple or veg or HB eggs L - 1200 if work - Salad or 1/2 sandwich or soup or pizza/home - protein shake and fruit or veg or yogurt and granola S - none D - [id number] protein and veg and small carb - potato/pasta/corn/rice No dessert S - rare - popcorn or ice cream Fluids: water Bedtime - [id number] Eating Disorder binge eating Dietary changes: B - 8-9 am Sometimes 30 gm protein shake but sometimes only has coffee with flavored creamer S - none L - 1200 small portion of whatever is catered in her office for lunch - chicken breast/lasagne/salad S - none D - 1800 meat and veg. Sometimes rice or potato S - none Fluids - protein shakes, water, coffee Current Barriers: inadequate sleep duration, busy schedule is making it difficult to make nutrition a priority Exercise: decreased due to illness but usually [employer] 3-4/week Regular exercise: yes Strength/resistance exercise:yes Barriers to regular exercise? no Work-related activity: depends on the day, mostly sedentary unless she is helping on the floor. 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 180 tablet 1 Phentermine HCl 37.5 mg tablet Take 1 tablet by mouth daily before breakfast for 60 days. 60 tablet 0 topiramate (TOPAMAX) 25 mg tablet Take 1 tablet by mouth two times a day. 180 tablet 0 citrull/argin/pine xt/vishnu hip (RISTELA ORAL) Take by mouth once daily. clotrimazole-betamethasone (LOTRISONE) cream Apply 1 application to affected area two times a day. 15 g 0 FLUoxetine (PROZAC) 20 mg capsule Take 20 mg by mouth once daily. Lactobacillus acidophilus (PROBIOTIC ORAL) Take by mouth. Vaginal health traZODone (DESYREL) 50 mg tablet Take 50 mg by mouth daily at bedtime. No current facility-administered medications for this visit. 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 Physical Exam Constitutional: She appears healthy. No distress. Results: recent labs reviewed with the patient. Outside labs: 12/27/2023 [facility] CBC WNL; CMP WNL; Hgba1c 5.0; Total Chol 159: HDL 75: LDL 74: TG 50:; TSH 0.52 01/2023 - CBC, lipids, CBC WNL 09/26/2023 Hgba1c 5.0 Anti-Obesity Medications >Phentermine: No uncontrolled HTN, No CVD Hx or hx of seizure disorder. No MAOI inhibitor use. No drug abuse hx. Crcl > 15. >Topiramate/zonisamide: No seizure, kidney stone or glaucoma hx. No hx of migraines, or hx of poor sleep. Hysterectomy >Qsymia: see above >Contrave: No uncontrolled HTN or hx of seizure disorder. No MAOI inhibitor use. No opiate use. >Saxenda/Wegovy/Ozempic: Cost. Ins coverage? >Metformin: eGFR > 30. No contraindications or medication interactions. Assessment/Plan: Do Olson is a 43 year old yo with Class I obesity who presented today for follow up for supervised weight loss to treat and prevent related co-morbidities. 1. Osteoarthritis of left knee, unspecified osteoarthritis type - ICD9: 715.96, ICD10: M17.12 (primary diagnosis) - Whole food balanced protein low-carb nutrition - TOPIRAMATE 25 MG TABLET - PHENTERMINE 37.5 MG TABLET - METFORMIN ER 500 MG TABLET 2. Anxiety - ICD9: 300.00, ICD10: F41.9 - treated with fluoxetine 20 mg daily 3. Stress incontinence - ICD9: [id number], ICD10: N39.3 - Whole food balanced protein low-carb nutrition - TOPIRAMATE 25 MG TABLET - PHENTERMINE 37.5 MG TABLET - METFORMIN ER 500 MG TABLET 4. History of gestational diabetes - ICD9: V12.21, ICD10: Z86.32 - METFORMIN ER 500 MG TABLET 5. Binge-eating disorder, in full remission, mild - ICD9: 307.1, ICD10: F50.81 - TOPIRAMATE 25 MG TABLET 6. History of obesity - ICD9: V12.29, ICD10: Z86.39 History of Class 1 obesity with BMI 31.61, weight 210 lb, currently overweight - TOPIRAMATE 25 MG TABLET twice a day - PHENTERMINE 37.5 MG TABLET The patient is currently enrolled in a diet and exercise program The patient has no known history of contraindications The patient is free from drug or ETHO abuse The patient is not or and is aware not to become while using this medication OARS was reviewed. PDMP website checked and validated. All prescriptions have been APPROPRIATELY filled. No suspicious activity was identified. - METFORMIN ER 500 MG TABLET -- Continue - Whole food balanced protein low-carb nutrition. Inadequate daily protein intake. Reinforced need for protein and benefits. Specific nutrition suggestions given. - 30 grams of protein for your first meal of the day. Given protein/whole food vegetable and fruit/high protein snack lists. -- Encouraged the patient to improve her physical activity. An overall goal of 150-200 minutes per week of exercise has been effective in weight loss and maintenance. We reviewed that during management she is to report any concerning side effects of any pharmacotherapy she is placed on. She understands that she will need routine follow up in the office. Prior to any virtual visits in the future she will need to check her Blood pressure, weight, and pulse. Prescription instructions reviewed with patient as applicable. Potential red flag symptoms discussed with the patient. Reviewed appropriate action plan to take if red flag symptoms occur. Patient agreeable to treatment plan. Follow up in 3 and 6 months Robyn Murrell CNP Advanced Education from the [employer] Medical Decision Making: Problems: Moderate: 1+ chronic illnesses with change and 2+ stable chronic illnesses Risk: Moderate: Drug management and Moderate risk from testing/treatment Medical Decision Making Level: 4 - Moderate Robyn Murrell, SUPERINTENDENT GENERATING PLANT.ANMOL 04/09/2024 12:28 PM Addendum Try Premier Protein Cafe Latte - Whole food balanced protein, controlled carbohydrate nutrition plan - 30 g of protein 3 times a day and up to 30 g of carbs at lunch and dinner only. Breakfast - 30 gm protein with limit of 2 gm carbohydrates. Options include: Premier Protein or generic 30 gm protein 1 gm sugar or 5 eggs or 2-3 eggs and some unbreaded meat and/or cheese. No fruit, vegetables, bread, grain, yogurt, Smoothies, etc. Lunch and dinner - 30 gm protein is the goal with less than 30 gm carbohydrates Snacks - all protein or more protein than carbs Protein - no carbs Egg 1 large - 6g Egg white 1 large 3.6g 3 oz is approximately the size of a deck of cards and equals 21 g protein so 4 oz is 28 gm protein Beef, Chicken, [place], Pork, Eli 1 oz 7g Fish, Tuna Fish 1 oz 7g (Starkist tuna packet 2.6 oz 17 gm protein) Seafood (Crabmeat, Shrimp, Lobster) 1 oz 6g Protein shakes (read labels) Premier Protein or generic [employer] Equate, [employer] High Performance- 30g protein AND 1g carb - meal replacement Premier Protein powder or generic- 30 gm protein, 1g carb Premier Protein plant protein powder - 25 gm protein, 0 sugar/2 carb Vanilla and chocolate (not a meal replacement) Fairlife 30 gram protein - 30g protein AND 3g carb BOOST Glucose Control Max 30g Protein Nutritional Drink - 30g protein AND 1 carb - meal replacement Slimfast High Protein - 20g protein AND 1g carb Ensure Max Protein Nutrition Shake 30g protein AND 2 carb Protein AND carbs Beef/[place] Jerky 1 oz dried 10-15g protein - check carb count, can be high if sugar added Slim Devante - 6 gm protein and 4 net carb Great Value original turkey sausage sticks - 7 gm protein and 2 gm carb Ugo (at [employer]) Original smoked sausage sticks - 8 gm protein and 0 carb Imitation Crab Meat 1 oz - 2g protein AND 4g carb Milk, skim 2% or 1% 8 oz - 8g protein AND 12g carb [place] yogurt Full Fat [place] Yogurt 1 cup - 20.4g protein AND 9.1g carb 2% [place] Yogurt 1 cup - 22.7g protein AND 9.1g carb 0% (fat-free) [place] Yogurt - 1 cup 24g protein AND 9.3g carb Aldi Protein [place] yogurt single svg - 15g protein AND 7g carb Chobani Zero Sugar single svg: - 12g protein AND 5g carb Dannon [place] Light + Fit 1 single svg - 12g protein AND 9g carb Oikos Pro single svg - 20g protein AND 8g carb Oikos Triple Zero [place] Nonfat Yogurt 1 single svg - 15g protein AND 7g carb :ratio, KETO Friendly Dairy Snack 1 single svg - 15g protein AND 2g carb :ratio Protein 1 single svg - 25g protein AND 8g carb Two Good Lowfat [place] Yogurt, [place], Lower Sugar - 12g protein AND 2g carb Yoplait Protein 1 single svg 15gm protein AND 5gm carb Dairy Free - [place] unsweetened [place] almond/soy 15 gm protein AND 3 gm carb Dairy Free - True Goodness by [employer] coconut-based yogurt alternative 1 gm protein 1 gm net carb 180 phil Cheese each oz Brie 5.9g protein AND 0.1g carb Cheddar 7g protein AND 0.4g carb [place] 6.7g protein AND 0.7g carb Cream Cheese 1.7g protein AND 1.2g carb Feta 4g protein AND 1.2g carb Mozzarella 6.3g protein AND 0.6g carb Parmesan 10g protein AND 0.9g carb [place] 7.6g protein AND 1.5g carb Cottage Cheese 1/2 c [place] 2% 13g protein 7g carb Nandini 2% 13g protein 5 g carb Good Culture 2% 14g protein 3g carb Patel?s Low Fat 12g protein AND 4g carb Legumes Lentils ? cup 9g protein AND 20g carb [place] beans ? cup 7g protein AND 20g carb Kidney, Black, [employer], Cannellini beans ? cup 8g protein AND 20g carb Soybeans 1/2 c 14g complete protein AND 8.5g carb [place] milk, unsweetened 8 oz 1g protein AND 2g carb Soy milk 8 oz 3.5g protein AND 1.6g carb Tofu 1/2 cup 10g protein AND 2.3g carb Peanut butter, natural 2 Tbsp 7-8g protein AND 4g net carbs, 190 calories PB2 powder 2 Tbsp 6g protein AND 5g carb Nuts and Seeds per oz Almonds - 5.9g protein AND 6.1g carb [place] Nuts - 4.0g protein AND 3.4g carb Cashews - 5.1g protein AND 9.2g carb Hazelnuts - 4.2g protein AND 4.7g carb Hemp seeds/hearts 3 T/30 gms - 9.5 gm complete protein and 2.5 gm carb Peanuts - 7g protein AND 4.6g carb Pecans - 2.6g protein AND 3.9g carb Pistachios - 5.8g protein AND 7.8g carb Pumpkin Seeds - 6.9g protein AND 5g carb [place] Seeds - 5.8g protein AND 5.6g carb Walnuts - 4.3g protein AND 3.8g carb Edamame Beans (soybean) snack 1 pack 11 gm complete protein 2 carb 5 (FIVE) gram carb vegetable options 1 cup raw OR ? cup cooked: Asparagus Hernandez sprouts Beets Broccoli Brussel sprouts Cabbage Carrots Cauliflower Celery [place] Eggplant Green beans Lettuce Peppers Snap peas Spaghetti squash Spinach Tomato Turnips Zucchini 15 gram carb vegetable options ? cup cooked corn or hominy ? corn on the cob, large (5 oz) ? cup cooked green peas 4.3 gm complete protein ? cup cooked [place]inton beans 1 small potato or sweet potato ? cup cooked potato, plain ? cup cooked sweet potato, plain 1 cup winter squash (pumpkin, acorn, butternut) 1 cup marinara or pasta sauce - check label ? cup tomato juice ? cup tomato puree Beans, Seeds, Nuts ? cup cooked beans (kidney, hernandez, red, green, etc.) ? cup cooked lentils ? cup baked beans 4 tablespoons nut butter <15 gram carb fruit options Berries have the lowest sugar content 1/2 medium apple - 12.5 carbs 1/2 medium avocado - 6.5 gm carbs 1/2 medium banana - 15 carbs 1/2 cup blueberries - 11 carbs - may actually help you lose weight 1/2 cup fresh cherries -11 carbs 1 medium [place] -9 carbs 1/2 cup fresh cranberries - 6.5 carbs 1/2 c grapes - 15 carbs 1/2 medium grapefruit - 10.5 carbs 1/2 cup diced honeydew melon - 8 carbs 1 medium kiwi without skin - 11 carbs 1/2 cup sliced saw -14 carbs 1 medium nectarine - 15 carbs 1 medium orange -15.5 carbs 1 medium peach -14.5 carbs 1/2 cup fresh pineapple -11 carbs 1 medium plum -7.5 carbs 1 prune - 6 carbs 1/4 c raisins - 31.25 carbs 1/2 cup raspberries -7.5 carbs 1/2 c strawberries - 12.7 carbs 1 medium tangerine -12 carbs 1/2 cup diced watermelon - 6 carbs Grains Brown rice 1/2 c 5.5g protein 24 carb White long-grain rice 1/2 c 2g protein 22.5 carb Quinoa 1/2 c 4 gm complete protein 25 carb Oatmeal, old fashioned 1/2 c 5g protein 27g carb High Protein Snack Ideas 1. Jerky 2. [place] mix without dried fruit 3. [place] roll-ups 4. [place] yogurt 5. Veggies and yogurt dip 6. Tuna 7. Hard-boiled eggs 8. Peanut butter with celery 9. Cheese slices/ Cheese Stick 10. Handful of almonds, peanuts or walnuts 11. Cottage Cheese 12. Beef sticks 13. Protein bars 14. Canned [place] 15. Pumpkin seeds 16. Nut butter 17. Protein shakes 18. Avocado and chicken salad 19. Egg muffins 20. Leftover protein or lunch meat 21. 1/2 c blended cottage cheese or [place] yogurt with dry ranch/Mrs. Dash/herb seasoning mix to make protein dip 22. 1/2 c blended cottage cheese with 1 Tbsp sugar-free dry cheesecake pudding mix 12g protein 10 carb 23. Pudding - 1 30 gm protein shake with 1/2 pkg sugar-free pudding 4 svgs - 7.8 gm protein, 5 carb each svg 24. SF Sunkist or Root Beer with 1-2 Tablespoons heavy whipping cream 25. Mini frozen dessert bites - layer protein yogurt, skinny syrup and crushed nuts and freeze ID protein bars Fausto protein bar 28 gm protein Allergies As of Date: 04/09/2024 Noted Allergy Reaction AMOXACILLIN (AMOXICILLIN) 04/09/2024 2 - Rash Date Reviewed: 04/09/2024 Reviewed by: Robyn Murrell APRN.ORDER TAKERS SUPERVISOR - Fully Assessed Reason for Visit: Follow Up [171] Weight Management [3933] Primary Visit Diagnosis:Osteoarthritis of left knee, unspecified osteoarthritis type [M17.12] Other Visit Diagnoses:Anxiety [F41.9] Stress incontinence [N39.3] History of gestational diabetes [Z86.32] Binge-eating disorder, in full remission, mild [F50.814] History of obesity [Z86.39] Order(s):topiramate (TOPAMAX) 25 mg tabletTake 1 tablet by mouth two times a day.Disp: 180 tabletRfl: 1 Phentermine HCl 37.5 mg tabletTake 1 tablet by mouth daily before breakfast for 90 days.Disp: 90 tabletRfl: 0 Prescriptions as of 04/09/2024 - topiramate (TOPAMAX) 25 mg tablet Take 1 tablet by mouth two times a day. - Phentermine HCl 37.5 mg tablet Take 1 tablet by mouth daily before breakfast for 90 days. - cyanocobalamin 1,000 mcg/mL inject 1000mg INTRAMUSCULARLY ONCE monthly - metFORMIN ER (GLUCOPHAGE XR) 500 mg 24 hr tablet Take 1 tablet by mouth two times a day. - citrull/argin/pine xt/vishnu hip (RISTELA ORAL) Take by mouth once daily. - clotrimazole-betamethasone (LOTRISONE) cream Apply 1 application to affected area two times a day. - FLUoxetine (PROZAC) 20 mg capsule Take 20 mg by mouth once daily. - Lactobacillus acidophilus (PROBIOTIC ORAL) Take by mouth. Vaginal health - traZODone (DESYREL) 50 mg tablet Take 50 mg by mouth daily at bedtime. Problem List As Of Date 04/09/2024 Noted Resolved Pain in right shoulder [M25.511] 06/10/2015 09/18/2018 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 [D24.1] 09/15/2020 Anxiety [F41.9] 11/23/2023 Stress incontinence [N39.3] 11/23/2023 History of obesity [Z86.39] 11/23/2023 Osteoarthritis of left knee [M17.12] 12/25/2023 History of gestational diabetes [Z86.32] 12/26/2023 Binge-eating disorder, in full remission, mild *12/26/2023 Other instructions from your clinician: Try Premier Protein Cafe Latte - Whole food balanced protein, controlled carbohydrate nutrition plan - 30 g of protein 3 times a day and up to 30 g of carbs at lunch and dinner only. Breakfast - 30 gm protein with limit of 2 gm carbohydrates. Options include: Premier Protein or generic 30 gm protein 1 gm sugar or 5 eggs or 2-3 eggs and some unbreaded meat and/or cheese. No fruit, vegetables, bread, grain, yogurt, Smoothies, etc. Lunch and dinner - 30 gm protein is the goal with less than 30 gm carbohydrates Snacks - all protein or more protein than carbs Protein - no carbs Egg 1 large - 6g Egg white 1 large 3.6g 3 oz is approximately the size of a deck of cards and equals 21 g protein so 4 oz is 28 gm protein Beef, Chicken, [place], Pork, Eli 1 oz 7g Fish, Tuna Fish 1 oz 7g (Starkist tuna packet 2.6 oz 17 gm protein) Seafood (Crabmeat, Shrimp, Lobster) 1 oz 6g Protein shakes (read labels) Premier Protein or generic [employer] Equate, [facility] High Performance- 30g protein AND 1g carb - meal replacement Premier Protein powder or generic- 30 gm protein, 1g carb Premier Protein plant protein powder - 25 gm protein, 0 sugar/2 carb Vanilla and chocolate (not a meal replacement) Fairlife 30 gram protein - 30g protein AND 3g carb BOOST Glucose Control Max 30g Protein Nutritional Drink - 30g protein AND 1 carb - meal replacement Slimfast High Protein - 20g protein AND 1g carb Ensure Max Protein Nutrition Shake 30g protein AND 2 carb Protein AND carbs Beef/[place] Jerky 1 oz dried 10-15g protein - check carb count, can be high if sugar added Slim Devante - 6 gm protein and 4 net carb Great Value original turkey sausage sticks - 7 gm protein and 2 gm carb Ugo (at [employer]) Original smoked sausage sticks - 8 gm protein and 0 carb Imitation Crab Meat 1 oz - 2g protein AND 4g carb Milk, skim 2% or 1% 8 oz - 8g protein AND 12g carb [place] yogurt Full Fat [place] Yogurt 1 cup - 20.4g protein AND 9.1g carb 2% [place] Yogurt 1 cup - 22.7g protein AND 9.1g carb 0% (fat-free) [place] Yogurt - 1 cup 24g protein AND 9.3g carb Aldi Protein [place] yogurt single svg - 15g protein AND 7g carb Chobani Zero Sugar single svg: - 12g protein AND 5g carb Dannon [place] Light + Fit 1 single svg - 12g protein AND 9g carb Oikos Pro single svg - 20g protein AND 8g carb Oikos Triple Zero [place] Nonfat Yogurt 1 single svg - 15g protein AND 7g carb :ratio, KETO Friendly Dairy Snack 1 single svg - 15g protein AND 2g carb :ratio Protein 1 single svg - 25g protein AND 8g carb Two Good Lowfat [place] Yogurt, [place], Lower Sugar - 12g protein AND 2g carb Yoplait Protein 1 single svg 15gm protein AND 5gm carb Dairy Free - [place] unsweetened [place] almond/soy 15 gm protein AND 3 gm carb Dairy Free - True Goodness by [employer] coconut-based yogurt alternative 1 gm protein 1 gm net carb 180 phil Cheese each oz Brie 5.9g protein AND 0.1g carb Cheddar 7g protein AND 0.4g carb [place] 6.7g protein AND 0.7g carb Cream Cheese 1.7g protein AND 1.2g carb Feta 4g protein AND 1.2g carb Mozzarella 6.3g protein AND 0.6g carb Parmesan 10g protein AND 0.9g carb [place] 7.6g protein AND 1.5g carb Cottage Cheese 1/2 c Breakstone 2% 13g protein 7g carb Nandini 2% 13g protein 5 g carb Good Culture 2% 14g protein 3g carb Patel?s Low Fat 12g protein AND 4g carb Legumes Lentils ? cup 9g protein AND 20g carb [place] beans ? cup 7g protein AND 20g carb Kidney, Black, [employer], Cannellini beans ? cup 8g protein AND 20g carb Soybeans 1/2 c 14g complete protein AND 8.5g carb [place] milk, unsweetened 8 oz 1g protein AND 2g carb Soy milk 8 oz 3.5g protein AND 1.6g carb Tofu 1/2 cup 10g protein AND 2.3g carb Peanut butter, natural 2 Tbsp 7-8g protein AND 4g net carbs, 190 calories PB2 powder 2 Tbsp 6g protein AND 5g carb Nuts and Seeds per oz Almonds - 5.9g protein AND 6.1g carb [place] Nuts - 4.0g protein AND 3.4g carb Cashews - 5.1g protein AND 9.2g carb Hazelnuts - 4.2g protein AND 4.7g carb Hemp seeds/hearts 3 T/30 gms - 9.5 gm complete protein and 2.5 gm carb Peanuts - 7g protein AND 4.6g carb Pecans - 2.6g protein AND 3.9g carb Pistachios - 5.8g protein AND 7.8g carb Pumpkin Seeds - 6.9g protein AND 5g carb [place] Seeds - 5.8g protein AND 5.6g carb Walnuts - 4.3g protein AND 3.8g carb Edamame Beans (soybean) snack 1 pack 11 gm complete protein 2 carb 5 (FIVE) gram carb vegetable options 1 cup raw OR ? cup cooked: Asparagus Hernandez sprouts Beets Broccoli Brussel sprouts Cabbage Carrots Cauliflower Celery [place] Eggplant Green beans Lettuce Peppers Snap peas Spaghetti squash Spinach Tomato Turnips Zucchini 15 gram carb vegetable options ? cup cooked corn or hominy ? corn on the cob, large (5 oz) ? cup cooked green peas 4.3 gm complete protein ? cup cooked [place]inton beans 1 small potato or sweet potato ? cup cooked potato, plain ? cup cooked sweet potato, plain 1 cup winter squash (pumpkin, acorn, butternut) 1 cup marinara or pasta sauce - check label ? cup tomato juice ? cup tomato puree Beans, Seeds, Nuts ? cup cooked beans (kidney, hernandez, red, green, etc.) ? cup cooked lentils ? cup baked beans 4 tablespoons nut butter <15 gram carb fruit options Berries have the lowest sugar content 1/2 medium apple - 12.5 carbs 1/2 medium avocado - 6.5 gm carbs 1/2 medium banana - 15 carbs 1/2 cup blueberries - 11 carbs - may actually help you lose weight 1/2 cup fresh cherries -11 carbs 1 medium Amena -9 carbs 1/2 cup fresh cranberries - 6.5 carbs 1/2 c grapes - 15 carbs 1/2 medium grapefruit - 10.5 carbs 1/2 cup diced honeydew melon - 8 carbs 1 medium kiwi without skin - 11 carbs 1/2 cup sliced saw -14 carbs 1 medium nectarine - 15 carbs 1 medium orange -15.5 carbs 1 medium peach -14.5 carbs 1/2 cup fresh pineapple -11 carbs 1 medium plum -7.5 carbs 1 prune - 6 carbs 1/4 c raisins - 31.25 carbs 1/2 cup raspberries -7.5 carbs 1/2 c strawberries - 12.7 carbs 1 medium tangerine -12 carbs 1/2 cup diced watermelon - 6 carbs Grains Brown rice 1/2 c 5.5g protein 24 carb White long-grain rice 1/2 c 2g protein 22.5 carb Quinoa 1/2 c 4 gm complete protein 25 carb Oatmeal, old fashioned 1/2 c 5g protein 27g carb High Protein Snack Ideas 1. Jerky 2. [place] mix without dried fruit 3. [place] roll-ups 4. [place] yogurt 5. Veggies and yogurt dip 6. Tuna 7. Hard-boiled eggs 8. Peanut butter with celery 9. Cheese slices/ Cheese Stick 10. Handful of almonds, peanuts or walnuts 11. Cottage Cheese 12. Beef sticks 13. Protein bars 14. Canned [place] 15. Pumpkin seeds 16. Nut butter 17. Protein shakes 18. Avocado and chicken salad 19. Egg muffins 20. Leftover protein or lunch meat 21. 1/2 c blended cottage cheese or [place] yogurt with dry ranch/Mrs. Dash/herb seasoning mix to make protein dip 22. 1/2 c blended cottage cheese with 1 Tbsp sugar-free dry cheesecake pudding mix 12g protein 10 carb 23. Pudding - 1 30 gm protein shake with 1/2 pkg sugar-free pudding 4 svgs - 7.8 gm protein, 5 carb each svg 24. SF Sunkist or Root Beer with 1-2 Tablespoons heavy whipping cream 25. Mini frozen dessert bites - layer protein yogurt, skinny syrup and crushed nuts and freeze ID protein bars Fausto protein bar 28 gm protein Prescriptions ordered this encounter Disp Refills Start End TOPIRAMATE 25 MG TABLET 180 * 1 04/09/2024 10/06/2024 Route: ORAL Sig: Take 1 tablet by mouth two times a day. PHENTERMINE 37.5 MG TABLET 90 t* 0 04/09/2024 07/08/2024 Route: ORAL Sig: Take 1 tablet by mouth daily before breakfast for 90 days. Medications Discontinued During This Encounter Prescriptions - ZEPBOUND 15 mg/0.5 mL pen injector (Discontinued) Reported on 04/09/2024 - topiramate (TOPAMAX) 25 mg tablet (Discontinued) Take 1 tablet by mouth two times a day. - Phentermine HCl 37.5 mg tablet (Discontinued) Take 1 tablet by mouth daily before breakfast for 60 days. Disposition: Return in about 3 months (around 07/03/2024) for wt mgt F/up 2:30 per AG and 12 weeks later. Follow-up and Disposition History for Encounter Date Provider Department Center 04/09/2024 [id number]-ONROXIAROBYN MURRELL [facility] Encounter Status:Closed by ROBYN MURRELL on 04/09/24 PROGRESS Observed: 04/09/2024 11:30 AM Status: COMPLETED Source: [facility] ID: [id number] Author: ROBYN MURRELL APRN.[facility] Service: ? Author Type: Nurse Practitioner Type: Progress Notes Filed: 04/09/2024 19:51 Note Text: Some documentation from previous visit of 02/13/2024 was copied and pasted, documentation has been reviewed and edited as necessary for today's visit. Patient Summary: Do is a 43 year old Female who presents for follow-up evaluation of obesity/weight management to treat and prevent related co-morbidities. In our previous visits we have discussed lifestyle intervention including a nutrition recommendations and physical activity optimization. Her last office visit was 8 weeks ago. Assessment/plan from last visit: - Metformin 500 mg tablet twice a day with meals -Topiramate 25 mg tablet am and sometimes before dinner - Phentermine 37.5 mg tablet am - BED- mild and in remission Interval History PT specifies the following items as new or significant updates since the last appointment: - carpal tunnel pain - scheduled for surgery after has hip labrum surgery Weight loss since last vist: 7 lbs for a total loss of 54 lbs Date: Weight: BMI: Medications: 04/09/2024 156 lb 24.43 02/13/2024 163 lb 25.53 12/26/2023 160 lb 25.18 Metformin, Topiramate, Phentermine 04/06/2021 210 lb 31.61 Tirzepatide escalation to 15 mg LD 11/2023 WC: 32.5 in 5% weight loss = 153 lbs, 10% weight loss = 145 lbs Anti-obesity medications: meformin Benefit:increased fullness Adverse effects: diarrhea Anti-obesity medications: Phentermine. Benefit:decreased appetite Adverse effects: none Anti-obesity medications: Topiramate. Benefit:decreased food thoughts Adverse effects: none Weight promoting medications: None Previous Diet (initial appointment): Awake - B - 629-7 - 30 gm protein shake or granola or fruit with coffee with with flavoring syrup and sweetened creamer. S - 10-1030 pretzels or apple or veg or HB eggs L - 1200 if work - Salad or 1/2 sandwich or soup or pizza/home - protein shake and fruit or veg or yogurt and granola S - none D - 4884-8479 protein and veg and small carb - potato/pasta/corn/rice No dessert S - rare - popcorn or ice cream Fluids: water Bedtime - [id number] Eating Disorder binge eating Dietary changes: B - 8-9 am Sometimes 30 gm protein shake but sometimes only has coffee with flavored creamer S - none L - 1200 small portion of whatever is catered in her office for lunch - chicken breast/lasagne/salad S - none D - 1800 meat and veg. Sometimes rice or potato S - none Fluids - protein shakes, water, coffee Current Barriers: inadequate sleep duration, busy schedule is making it difficult to make nutrition a priority Exercise: decreased due to illness but usually [employer] 3-4/week Regular exercise: yes Strength/resistance exercise:yes Barriers to regular exercise? no Work-related activity: depends on the day, mostly sedentary unless she is helping on the floor. 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 180 tablet 1 Phentermine HCl 37.5 mg tablet Take 1 tablet by mouth daily before breakfast for 60 days. 60 tablet 0 topiramate (TOPAMAX) 25 mg tablet Take 1 tablet by mouth two times a day. 180 tablet 0 citrull/argin/pine xt/vishnu hip (RISTELA ORAL) Take by mouth once daily. clotrimazole-betamethasone (LOTRISONE) cream Apply 1 application to affected area two times a day. 15 g 0 FLUoxetine (PROZAC) 20 mg capsule Take 20 mg by mouth once daily. Lactobacillus acidophilus (PROBIOTIC ORAL) Take by mouth. Vaginal health traZODone (DESYREL) 50 mg tablet Take 50 mg by mouth daily at bedtime. No current facility-administered medications for this visit. 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 Physical Exam Constitutional: She appears healthy. No distress. Results: recent labs reviewed with the patient. Outside labs: 12/27/2023 [facility] CBC WNL; CMP WNL; Hgba1c 5.0; Total Chol 159: HDL 75: LDL 74: TG 50:; TSH 0.52 01/2023 - CBC, lipids, CBC WNL 09/26/2023 Hgba1c 5.0 Anti-Obesity Medications >Phentermine: No uncontrolled HTN, No CVD Hx or hx of seizure disorder. No MAOI inhibitor use. No drug abuse hx. Crcl > 15. >Topiramate/zonisamide: No seizure, kidney stone or glaucoma hx. No hx of migraines, or hx of poor sleep. Hysterectomy >Qsymia: see above >Contrave: No uncontrolled HTN or hx of seizure disorder. No MAOI inhibitor use. No opiate use. >Saxenda/Wegovy/Ozempic: Cost. Ins coverage? >Metformin: eGFR > 30. No contraindications or medication interactions. Assessment/Plan: Do Olson is a 43 year old yo with Class I obesity who presented today for follow up for supervised weight loss to treat and prevent related co-morbidities. 1. Osteoarthritis of left knee, unspecified osteoarthritis type - ICD9: 715.96, ICD10: M17.12 (primary diagnosis) - Whole food balanced protein low-carb nutrition - TOPIRAMATE 25 MG TABLET - PHENTERMINE 37.5 MG TABLET - METFORMIN ER 500 MG TABLET 2. Anxiety - ICD9: 300.00, ICD10: F41.9 - treated with fluoxetine 20 mg daily 3. Stress incontinence - ICD9: [id number], ICD10: N39.3 - Whole food balanced protein low-carb nutrition - TOPIRAMATE 25 MG TABLET - PHENTERMINE 37.5 MG TABLET - METFORMIN ER 500 MG TABLET 4. History of gestational diabetes - ICD9: V12.21, ICD10: Z86.32 - METFORMIN ER 500 MG TABLET 5. Binge-eating disorder, in full remission, mild - ICD9: 307.1, ICD10: F50.81 - TOPIRAMATE 25 MG TABLET 6. History of obesity - ICD9: V12.29, ICD10: Z86.39 History of Class 1 obesity with BMI 31.61, weight 210 lb, currently overweight - TOPIRAMATE 25 MG TABLET twice a day - PHENTERMINE 37.5 MG TABLET The patient is currently enrolled in a diet and exercise program The patient has no known history of contraindications The patient is free from drug or ETHO abuse The patient is not or and is aware not to become while using this medication OARS was reviewed. PDMP website checked and validated. All prescriptions have been APPROPRIATELY filled. No suspicious activity was identified. - METFORMIN ER 500 MG TABLET -- Continue - Whole food balanced protein low-carb nutrition. Inadequate daily protein intake. Reinforced need for protein and benefits. Specific nutrition suggestions given. - 30 grams of protein for your first meal of the day. Given protein/whole food vegetable and fruit/high protein snack lists. -- Encouraged the patient to improve her physical activity. An overall goal of 150-200 minutes per week of exercise has been effective in weight loss and maintenance. We reviewed that during management she is to report any concerning side effects of any pharmacotherapy she is placed on. She understands that she will need routine follow up in the office. Prior to any virtual visits in the future she will need to check her Blood pressure, weight, and pulse. Prescription instructions reviewed with patient as applicable. Potential red flag symptoms discussed with the patient. Reviewed appropriate action plan to take if red flag symptoms occur. Patient agreeable to treatment plan. Follow up in 3 and 6 months Robyn Murrell CNP Advanced Education from the [employer] Medical Decision Making: Problems: Moderate: 1+ chronic illnesses with change and 2+ stable chronic illnesses Risk: Moderate: Drug management and Moderate risk from testing/treatment Medical Decision Making Level: 4 - Moderate ALLERGIES DATE TYPE / CODE NAME / CODE REACTION SEVERITY SOURCE 04/09/2024 DRUG INGREDI/[id number] 3(SNOMED CT) AMOXICILLIN RASH [facility] Drug Class/161900209( SNOMED CT) NO KNOWN ALLERGIES [facility] ENCOUNTERS ADMIT/DISCHARGE ACCOUNT NUMBER ADMITTING ENCOUNTER CLASS LOC ATION SOURCE 12/19/2024/ 5 [id number] Ambulatory [facility] HospitalBuild ing:OB [facility] 09/25/2024/ 5 [id number] Ambulatory [facility] HospitalBuild ing:SHAINA [facility] 07/03/2024/ 5 [id number] Ambulatory [facility] HospitalBuild ing:SHAINA [facility] 04/09/2024/ 4 [id number] Ambulatory [facility] HospitalBuild ing:SHAINA [facility] PAYERS ENCOUNTER GUARANTOR PAYER SUBSCRIBER SOURCE 12/19/2024 Primary Insuranc e:ELVIS LIMAPolicy Number: [id number] Date:[id number] Name:Karsten WHITINGNDOB: [id number] [place] [address] [facility] 09/25/2024 Primary Insuranc e:ELVIS LIMAPolicy Number: [id number] Date:[id number] Name:Karsten WHITINGNDOB: [id number] [place] [address] [facility] 07/03/2024 Primary Insuranc e:ELVIS LIMAPolicy Number: [id number] Date:[id number] Name:Karsten WHITINGNDOB: [id number] [place] [address] [facility] 04/09/2024 Primary Insuranc e:ELVIS LIMAPolicy Number: [id number] Date:[id number] Name:Karsten WHITINGNDOB: [id number] [place] [address] [facility]
--- NOTE | 2025-02-24 11:28 | BI_ITS ---
EXAM: SCRN MAMM (CAD)W/RJ BILAT DATE: 02/24/2025 CLINICAL HISTORY: F, Age 44 y/o , SCREENING Routine screening, implants TECHNIQUE: Procedure Code: [id number] Modality: MG Procedure: SCRN MAMM (CAD)W/RJ BILAT COMPARISON: Prior exam(s) dated 02/01/2024 FINDINGS: TISSUE DENSITY: There are scattered areas of fibroglandular density. Bilateral Breast Mammographic Findings: No significant masses, calcifications or other abnormalities are identified. Implants are intact and free of complication BI/SCRN MAMM (CAD)W/RJ BILAT IMPRESSION: Stable screening mammogram, no suspicious findings OVERALL FINAL ASSESSMENT BI-RADS 2: BENIGN RECOMMENDATION: Routine annual follow-up in 1 Year Additional Recommendation none A letter with findings and recommendations will be mailed to the patient. Reading Location: [id number]
== END | disposition home or self-care (01) ==
LOC: OPBI 11:36
PROVIDERS: PCP Nurse Practitioner Family; Referring Provider Nurse Practitioner Family; Visit Provider Nurse Practitioner Family
DX: Z12.31 Encounter for screening mammogram for malignant neoplasm of breast (principal)
CPT/HCPCS: 77063; 77067

== ENCOUNTER 2025-03-12 06:05 | Emergency (ER) | payer OTHER, SELFPAY ==
[2025-03-12 06:06] VITALS: BP 114/83; PULSE 87; RESP 16; TEMP 36.6; O2SAT 98; BMI 24.5
--- NOTE | 2025-03-12 06:16 | CT_ITS ---
PROCEDURE: SPINE CERVICAL WITHOUT CONTRAS 03/12/2025 REASON FOR EXAM: FALL FROM HORSE TECHNIQUE: Procedure Code: CTSPC Modality: CT Procedure: SPINE CERVICAL WITHOUT CONTRAS Coronal and Sagittal reconstruction series were provided. One or more dose reduction techniques were used (e.g., Automated exposure control, adjustment of the mA and/or kV according to patient size, use of iterative reconstruction technique. RADIATION DOSE SUMMARY: CTDI Vol 16.68 mGy DLP :323.70 mGycm COMPARISON: none FINDINGS: Straightened cervical curve denoting myospasm. No vertebral fractures or acute dislocation. The vertebral bodies show no structural collapse or posterior neural elements fractures. No facet dislocation. Multilevel degenerative facet arthropathy. Level by Level analysis: C1-C2: Intact atlanto-axial articulations with degenerative changes C2-C3: No central canal or neuroforaminal stenosis. C3-C4: No central canal or neuroforaminal stenosis. C4-C5: No central canal or neuroforaminal stenosis. C5-C6: diffuse disc bulge/osteophyte complex lesion with uncovertebral arthropathy indenting the theca and encroaching upon the related neural exit foramina. C6-C7: No central canal or neuroforaminal stenosis. No paraspinal masses. CT/Spine Cervical without Contras IMPRESSION: Straightened cervical lordosis denoting myospasm. No vertebral fractures or acute dislocation. C5-C6: diffuse disc bulge/osteophyte complex lesion with uncovertebral arthropa thy encroaching upon the related neural exit foramina. Reading [facility]
--- NOTE | 2025-03-12 06:16 | CT_ITS ---
PROCEDURE: BRAIN/HEAD WITHOUT CONTRAST 03/12/2025 REASON FOR EXAM: HEADACHE FELL FROM HORSE TECHNIQUE: Procedure Code: CTBR Modality: CT Procedure: BRAIN/HEAD WITHOUT CONTRAST Coronal and Sagittal reconstruction series were provided. One or more dose reduction techniques were used (e.g., Automated exposure control, adjustment of the mA and/or kV according to patient size, use of iterative reconstruction technique. RADIATION DOSE SUMMARY: CTDI Vol 44.99 mGy DLP :846.73 mGycm COMPARISON: none FINDINGS: The visualized brain parenchyma shows normal appearance. No focal parenchymal abnormalities are demonstrated. Leavitt-white matter differentiation is maintained. Normal CT appearance of the posterior fossa structures. No intracerebral or extra-axial hemorrhage. No midline shifts or deformity. Normal size and configuration of the cerebral ventricles. No definite calvarial fractures. The osseous structures in the skull base are unremarkable. Paranasal sinuses show minimal left maxillary sinusitis CT/Brain/Head without Contrast IMPRESSION: No intracerebral or extra-axial hemorrhage. No acute cerebrovascular insult. If clinical symptoms persist, further evaluati on with MRI may be considered as clinically warranted. Unremarkable non-enhanced CT study for the brain. Reading Location[facility]
--- NOTE | 2025-03-12 06:17 | EDS_ITS ---
HPI History of Present Illness Chief Complaint: Headache Narrative Narrative: Patient is a 44-year-old female with a past medical history of anxiety who presents to the emergency department with a chief complaint of headache and neck pain. States that on of this past week she was thrown from her horse falling backwards. She states that she does not believe that she hit her head she states that she does not believe that she lost consciousness. States that she has had a headache since then however noted that the past few days this has been progressively worsening prompting her to come here for further evaluation management. States that Tylenol and ibuprofen is not touching her headache. States that she has been very nauseous lately. Denies any vomiting PFSH PFS Medical History Former smoker Wears glasses Accident in home Puncture wound of foot, left Obesity (BMI 30.0-34.9) Anxiety Home Medications ?Medication ?Instructions ?Recorded ?Last Taken ?Type fexofenadine 180 mg tablet 180 mg PO DAILY PRN allergi c 07/20/22 Unknown History (Melinda Allergy) symptoms collagen SUPPELEMENT 1 dose PO DAILY 05/20/2411/19 History trazodone 50 mg tablet 50 mg PO QHS PRN sleep 05/2006/02/24 History tirzepatide 7.5 mg/0.5 mL 7.5 mg subcut QWEEK 12/16/24 12/17/24 History subcutaneous pen injector (Mounjaro) cyclobenzaprine 10 mg tablet 10 mg PO TID PRN muscle s pasm #20 03/12/25 Unknown Rx tabs fluoxetine 20 mg capsule 40 mg PO DAILY 03/12/25 Unkn own History Allergy/AdvReac Type Severity Reaction Status Date / Time amoxicillin Allergy Rash Verified 03/12/25 06:06 Family History Other Cervical cancer Heart disease Melanoma Mental disorder Myocardial infarction Ovarian cancer Surgical History History of carpal tunnel surgery of right wrist Hx of surgical procedure History of breast augmentation History of wisdom tooth extraction History of hysterectomy H/O lumpectomy Social History Smoking Status: Former smoker alcohol intake: current alcohol intake frequency: holidays/special occasions only substance use type: does not use ROS ROS ED ROS Narrative Constitutional: Denies any fevers or chills complains of headache as noted above denies lightheadedness or dizziness Eyes: Denies double vision blurry vision Cardiovascular: Denies chest pain Abdomen: Complains of nausea as noted above states that she is having normal bowel movements : Denies urinary symptoms states that she is urinating normally for self Neurological: Denies any numbness, weakness, tingling Musculoskeletal: Complains of neck pain as noted above Skin: Denies any rashes or lesions EXAM Physical Exam Narrative Exam Narrative: General: Patient was lying in bed rest comfortably did not appear to be acute distress Head: Atraumatic, normocephalic Eyes: PERRL bilaterally, EOMI bilateral, no conjunctival injection noted Neck: Soft, supple, trachea midline Cardiovascular: Patient has regular rate and rhythm Respiratory: Clear to auscultation bilaterally Musculoskeletal: Patient has no midline tenderness to palpation in the cervical spine, no tenderness palpation midline of the thoracolumbar spine she does have tenderness palpation of the quadratus lumborum region Extremities: +5/5 strength noted in the bilateral lower extremities, radial pulses +2/4 in the bilateral extremities Neurological: Patient following commands knew that she was at [facility] the year is 2024 sensation grossly intact Skin: Warm, dry, intact no rashes or lesions noted Const Vital Signs: 03/12/25 06:06 Temperature 98 F Temperature Source Oral Pulse Rate 87 Respiratory Rate 16 Blood Pressure 114/83 H Blood Pressure Mean 93 Pulse Ox 98 Oxygen Delivery Method Room Air MDM MDM MDM Narrative Medical decision making narrative: Patient is a 44-year-old female who presented to the emergency department the chief complaint of headache. On the differential diagnose includes but limited to intracranial hemorrhage, chronic subdural, cervical spine fracture, musc uloskeletal strain, tension headache. Once workup is obtained and reviewed she will be reevaluated. Patient be given IV fluids, gram of Tylenol, 25 mg of Benadryl intravenously and Reglan [address] head brain without contrast showed no acute intracerebral or extra- axial hemorrhage. No CVA unremarkable CT head. Patient CT cervical spine reviewed showed straightening of the cervical lordosis denoting mild spasm. No fracture or dislocation. She has a C5-C6 disc bulge/osteophyte complex lesion with arthropathy encroaching upon the related neural exit foramina. Patient does not have any neurosymptoms associated with this. Reevaluation patient she states that she is feeling better she states that it took the edge off she states that when she came here her headache was a 9 out of 10 and now is a 3 out of 10. She will be given Toradol and Norflex and be reevaluated. On reevaluation patient at 7:34 AM she is feeling better and like to go home at this point time. Patient was given a hard copy of her CT results and is advised to follow-up with Dr. Pappas in the outpatient setting. She is vies return with worsening symptoms or any concerns. She is agreeable to plan all question concerns answered she was discharged home in stable condition. Radiography Diagnostic Testing: Clinical Impression(s) from Imaging Studies Brain CT 03/12/25 06:16 IMPRESSION: No intracerebral or extra-axial hemorrhage. No acute cerebrovascular insult. If clinical symptoms persist, further evaluation with MRI may be considered as clinically warranted. Unremarkable non-enhanced CT study for the brain. Reading Location: [place] [id number] 03/12/25 06:16 IMPRESSION: Straightened cervical lordosis denoting myospasm. No vertebral fractures or acute dislocation. C5-C6: diffuse disc bulge/osteophyte complex lesion with uncovertebral arthropathy encroaching upon the related neural exit foramina. Reading Location: [place] [id number] Discharge Plan Triage Chief Complaint: Headache ED Provider: Danny Pate Dx/Rx/DC Orders Clinical Impression: Headache, Musculoskeletal strain, Cervical disc herniation Prescriptions: New cyclobenzaprine 10 mg tablet 10 mg PO TID PRN (Reason: muscle spasm) Qty: 20 0RF No Action fexofenadine [Melinda Allergy] 180 mg tablet 180 mg PO DAILY PRN (Reason: allergic symptoms) collagen SUPPELEMENT 1 dose PO DAILY trazodone 50 mg tablet 50 mg PO QHS PRN (Reason: sleep) Mounjaro 7.5 mg/0.5 mL pen injector 7.5 mg subcut QWEEK Patient Comments: TAKES ON FRIDAYS LAST DOSE 12/19/24 FOR WEIGHT LOSS fluoxetine 20 mg capsule 40 mg PO DAILY Rx Instructions: TAKE 1 CAPSULE BY MOUTH DAILY Primary Care Provider: Yonathan Harper Referrals: Yonathan Harper, FIRE INVESTIGATOR-C [Primary Care Provider, [facility]] Activity Restrictions/Additional Instructions: Rotate Tylenol and ibuprofen [id number] when you do this you can take something every 3 hours for pain max dose Tylenol 24 hours 4000 mg max dose ibuprofen in 24 hours 3200 mg. Follow-up with the spine surgeon you are referred to. Showed them the hard copy of your CT result. Use muscle laxer as prescribed do not operate anything under the influence of this as it will make you sleepy and drowsy Print Language: Botswanan Disposition Disposition: Home, Self Care
[2025-03-12] MEDS: DiphenhydrAMINE 50 MG/ML Syringe 25 MG IV (06:30)
[2025-03-12] MEDS: 0.9% Normal Saline (1000mL) 1,000 ML 999 ML IV (06:30)
--- OUTSIDE RECORDS SUMMARY | 2025-03-12 06:39 | XMS RPT_ITS | CCD ---
Author Organization [facility] Care Team Providers Care Sound Engineer Name Role Phone Anselmo Rossi Unavailable Spring, Cathy Shields Admitting Unavailable Spring, Cathy Shields Attending Unavailable Spring, Cathy M Primary Care Unavailable ACSO Consulting Unavailable Olivia, Ana Maria Primary Care Provider Olivia, Ana Maria Unavailable OLIVIAANA MARIA Referring Unavailable OLIVIAANA MARIA Attending Unavailable OLIVIA, ANA MARIA Primary Care Unavailable Olivia, Ana Maria Primary Care Provider Olivia, Ana Maria Unavailable Olivia, Ana Maria Primary Care Provider Olivia, Ana Maria Unavailable Oostra, Shahla Unavailable Robyn Bergeron Unavailable Unavailable Olivia , Ana Maria Primary Care Provider [phone] Olivia MD, Ana Maria Unavailable Oostriva LAU, Shahla Unavailable Robyn Bergeron RN Unavailable Unavailable SYSTEM, PROVIDER NOT IN Attending Unavaila ble SYSTEM, PROVIDER NOT IN Referring Unavaila ble OLIVIAANAM ARIA Primary Care Unavailable OOSTRASHAHLA Admitting Unavailable OLIVIA, [...] Unavailable OLIVIA, ANA MARIA Primary Care Unavailable OOSTRASHAHLA Attending Unavailable OOSTRA, SHAHLA RESTREPO Admitting Unavailable OLIVIA, ANA MARIA Primary Care Unavailable OOSTRA, SHAHLA RESTREPO Referring Unavailable SYSTEM, PROVIDER NOT IN Attending Unavaila ble SYSTEM, PROVIDER NOT IN Referring Unavaila ble OLIVIA, ANA MARIA Primary Care Unavailable JASONANSELMO JACKSON GRACIELA Primary Care Unavailable VIRA TSE Admitting Unavailable OLIVIA, ANA MARIA Primary Care Unavailable ROBYN RAI Admitting Unavailable ROBYN RAI Referring Unavailable Olivia MD, Ana Maria Primary Care Provider [phone] Olivia LAU, An Amaria Unavailable Sherry Bagley PA-C Unavailable DESI PRESCOTT [...] OLIVIA, ANA MARIA Primary Care Unavailable Olivia Ana Maria LAU Primary Care Provider Olivia LAU, Ana Maria [...] ilable MD Daria Martines Referring Provider Unavaila DALY Steele Attending Provider Unavailab le Care Physician, No Primary Primary Care Provider Unavailable Care Physician, No Primary Referring Provider Un available DALY Santiago Attending Provider Ana Maria Baker MD Unavailable Olivia MD, Ana Maria Unavailable MD Daria Cummings Primary Care Provider U navailable MD Daria Cummings Referring Provider Unav ailable Leroy COTTON STOMPER, COTTON STOMPER-C Kartik Attending Provider Leroy VSC, COTTON STOMPER-C Kartik Primary Care Provider Leroy JAMESC, COTTON STOMPER-C Kartik Referring Provider DALY Santiago Attending Provider Dr. Brenton Gifford Attending Provider Padgett PRINTER ASSISTANT, Kartik Primary Care Provider Padgett COTTON STOMPER-C, Kartik Primary Care Provider Funmilayo AGUIRRE, Dr. Krishnan Attending Provider Funmilayo AGUIRRE, Dr. Krishnan Referring Provider Funmilayo AGUIRRE, Dr. Krishnan Other Provider Padgett COTTON STOMPER-C, Kartik Referring Provider Liu COTTON STOMPER-C, Brooke Attending Provider Mark LAU, Dr. Conte Attending Provider Liu COTTON STOMPER-C, Brooke Referring Provider Olivia LAU, Ana Maria Unavailable Unavailable Padgett COTTON STOMPER-C, Kartik Primary Care Provider Funmilayo AGUIRRE, Dr. Krishnan Attending Provider Kathryn LAU, Dr. Daryl Geiger Attending Provider [phone] Kathryn LAU, Dr. Daryl Geiger Referring Provider [phone] Olivia LAU, Ana Maria Unavailable Padgett COTTON STOMPER-C, Kartik Primary Care Provider Padgett COTTON STOMPER-C, Kartik Referring Provider Warner COTTON STOMPER-C, Robyn Attending Provider Warner COTTON STOMPER-C, Robyn Referring Provider Funmilayo AGUIRRE, Dr. Krishnan Referring Provider Funmilayo AGUIRRE, Dr. Krishnan Other Provider WARNER, ROBYN Referring Unavailable PADGETT, KARTIK Primary Care Unavailable PADGETT, KARTIK Primary Care Unavailable WARNER, ROBYN Attending Unavailable WARNER, ROBYN Attending Unavailable PADGETT, KARTIK Primary Care Unavailable WARNER, ROBYN Attending Unavailable PADGETT, KARTIK Primary Care Unavailable WARNER, ROBYN Attending Unavailable PADGETT, KARTIK Primary Care Unavailable WARNER, ROBYN Attending Unavailable PADGETT, KARTIK Primary Care Unavailable Padgett COTTON STOMPER-C, Kartik Primary Care Physician Nyasia COTTON STOMPER-C, Robyn Attending Physician [phone] Dr. Eulogio Mello DO Attending Physician [phone] Dr. Eulogio Mello DO Nurse Practitioner Padgett, Kartik Referring Unavailable Padgett, Kartik Primary Care Unavailable Borruso, Eulogio Attending Unavailable Padgett, Kartik Referring Unavailable Liu, Brooke Attending Unavailable Padgett, Kartik Primary Care Unavailable DossiChasidy Attending Unavailable Padgett, Kartik Primary Care Unavailable Padgett, Kartik Referring Unavailable Ahmad, Jessica Attending Unavailable Padgett, Kartik Primary Care Unavailable Borruso, Eulogio Consulting Unavailable Borruso, Eulogio Referring Unavailable Mark, Dg Attending Unavailable Padgett, Kartik Primary Care Unavailable Padgett, Kartik Primary Care Unavailable Padgett, Kartik Referring Unavailable Liu, Brooke Attending Unavailable Padgett, Kartik Referring Unavailable Padgett, Kartik Primary Care Unavailable Borruso, Eulogio Attending Unavailable Padgett, Kartik Referring Unavailable Borruso, Eulogio Attending Unavailable Padgett, Kartik Primary Care Unavailable Laskovderrell Daryl R Referring Unavailable Laskovderrell Daryl R Attending Unavailable Padgett, Kartik Primary Care Unavailable Padgett, Kartik Primary Care Unavailable Borruso, Eulogio Attending Unavailable Borruso, Eulogio Consulting Unavailable Borruso, Eulogio Referring Unavailable Padgett, Kartik Primary Care Unavailable Borruso, Eulogio Referring Unavailable Borruso, Eulogio Attending Unavailable Padgett, Kartik Primary Care Unavailable Liu, Brooke Referring Unavailable Liu, Brooke Attending Unavailable Warner COTTON STOMPER, Robyn Referring Unavailable Warner COTTON STOMPER, Robyn Attending Unavailable Padgett, Kartik Primary Care Unavailable Warner COTTON STOMPER, Robyn Referring Unavailable Warner COTTON STOMPER, Robyn Attending Unavailable Padgett, Kartik Primary Care Unavailable Padgett, Kartik Primary Care Unavailable Borruso, Eulogio Referring Unavailable Borruso, Eulogio Attending Unavailable Padgett, Kartik Primary Care Unavailable Borruso, Eulogio Referring Unavailable Borruso, Eulogio Attending Unavailable Padgett, Kartik Primary Care Unavailable Borruso, Eulogio Consulting Unavailable Borruso, Eulogio Referring Unavailable Borruso, Eulogio Attending Unavailable Padgett, Kartik Referring Unavailable Padgett, Kartik Primary Care Unavailable Borruso, Eulogio Attending Unavailable Padgett, Kartik Referring Unavailable Daniele Matthews Attending Unavailable Padgett, Kartik Primary Care Unavailable Allergies Allergy Classification Reported Allergen(s) Allergy Type Date of Onset Reaction(s) Facility (16 sources) Amoxicillin; Translations: [AMOXICILLIN] Drug Allergy 04-09-2024 Rash [facility] (1 source) Amoxicillin Drug Allergy 12-30-[address] [facility] Repository Medications Current Medications Medication Drug Class(es) [...] conjunction with the immunization order to satisfy [place] Board of Pharmacy Positive ID requirements for immunization orders. 1 mL 0 01/11/2018 01/11/2018 Active acetaminophen 325 mg / HYDROcodone bitartrate 5 mg oral tablet (3 sources) Opioid Agonist Start: 12-30-2024 take 1 tablet by mouth every four hours as needed for pain ALPRAZolam 0.25 mg oral tablet (17 sources) Benzodiazepine Start: 08-24-2020 End: 09-21-2020 ALPRAZolam (XANAX) 0.25 MG tablet Indications: Stress at home Take 1 (one) tablet (0.25 mg total) by mouth 3 (three) times a day as needed for anxiety (Days supply per fill: 3) . 42 tablet 0 08/26/2020 09/21/2020 Discontinued betamethasone 0.5 mg/ml / clotrimazole 10 mg/ml [...] Take by mouth as nee ded. Collagen (7 sources) COLLAGEN MISC Ac tive collagen SUPPELEMENT (5 sources) Start: 05-20-2024 Start: 05-20-2024 collagen SUPPE LEMENT Active 1 NMA PO DAILY May 20, 2024 1:00am escitalopram 10 mg oral tablet (3 sources) Serotonin Reuptake Inhibitor Start: 02-08-2021 End: 02-08-2022 take 1 tablet by mouth once daily escitalopram oxalate (LEXAPRO) 10 MG tablet Take 1 (one) tablet (10 mg total) by mouth daily . 30 tablet 02/08/2021 02/08/2022 Active fexofenadine hydrochloride 180 mg oral tablet (20 sources) Histamine-1 Receptor Antagonist Start: 08-04-2021 End: 07-20-2022 take 1 tablet by mouth once daily as needed fluconazole 150 mg oral tablet (20 sources) Azole Antifungal Start: 04-15-2024 End: 04-15-2024 take 1 tablet by mouth once fluconazole [...] discussed in office today Start: 11-08-2023 End: 03-07-2024 Fluconazole 150 mg tablet Discontinued 150 mg PO Every 3 Days 2 0 0 November 08, 2023 12:00am March 07, [...] on above: Take 1 tablet by tamra th one time only for 1 dose. FLUoxetine 20 mg oral capsule (20 sources) Serotonin Reuptake Inhibitor Start: 01-30-2023 take 1 capsule by mouth once daily Start: 01-11-2023 End: 01-30-2023 take 1 tablet [...] . 60 capsule 11 12/14/2020 12/14/2021 Active 24 hr metFORMIN hydrochloride 500 mg extended release oral tablet (20 sources) Biguanide Start: 05-20-2024 Start: 02-13-2024 End: 08-11-2025 take 1 tablet [...] Discontinued MOUNJARO 15 mg/0.5 mL pen injector (4 sources) Start: 12-12-2024 inject 15 mg by subcutaneous injection every week MOUNJARO 15 mg/0.5 mL pen injector Inject 15 mg subcutaneously one time a week. 12/12/2024 Active Multivitamin With Minerals (Hair,Skin And Nails) tablet (14 sources) Start: 08-04-2021 take 1 tablet by [...] 20 tablet 0 10/05/2020 Active OTC PRODUCT (6 sources) OTC PRODUCT Multivitamin Active End: 09-25-2024 OTC PRODUCT DIM 09/25/2024 D iscontinued OTC PRODUCT DIM Active phentermine hydrochloride 37.5 mg oral tablet (20 sources) Sympathomimetic Amine Anorectic Start: 02-13-2024 End: 04-04-2025 take 1 tablet by mouth once daily Start: 12-26-2023 End: 02-09-2024 take 1 tablet [...] . 30 capsule 2 05/06/2020 08/04/2020 Active Pnv Cmb#95-Ferrous Fumarate-Fa () 28 mg iron- 800 mcg tablet (2 sources) Start: 12-16-2024 Pnv Cmb#95-Erich larisa Fumarate-Fa () 28 mg iron- 800 mcg tablet Active 1 {tbl} PO DAILY December 16, 2024 12:00am Pnv No.95-Ferrous Fumarate-Fa () 28 mg iron- 800 mcg tablet (1 source) Start: 12-16-2024 predniSONE 10 mg oral tablet (7 sources) [...] po every day x 3 days Tirzepatide (2 sources) Start: 12-16-2024 Start: 08-29-2022 End: 10-17-2022 Tirzepatide (Mounjaro) 7.5 m g/0.5 mL pen injector Discontinued 7.5 mg SC EVERY WEEK 2 2 August 29, 2022 1:59pm October 17, 2022 3:32pm Tirzepatide (Mounjaro) 7.5 mg/0.5 mL pen injector (11 sources) Start: 12-16-2024 Tirzepatide (M ounjaro) 7.5 mg/0.5 mL pen injector Active 7.5 mg SC EVERY WEEK December 16, 2024 12:00am Start: 08-29-2022 End: 10-17-2022 Tirzepatide (Mounjaro) 7.5 [...] injector Discontinued 7.5 MG SC EVERY WEEK August 29, 2022 1:59pm October 17, 2022 3:32pm topiramate 25 mg oral tablet (20 sources) Start: 12-26-2023 End: 03-24-2025 take 1 [...] Discontinued traZODone hydrochloride 50 mg oral tablet (20 sources) Serotonin Reuptake Inhibitor Start: 05-20-2024 take 1 tablet by mouth at bedtime Start: 09-11-2023 take 2 tablets by mo [...] / oxyCODONE hydrochloride 5 mg oral tablet (18 sources) Opioid Agonist Start: 03-19-2023 End: 03-26-2023 [...] Fracture of phalanx of left great toe amoxicillin 500 mg oral tablet (5 sources) Penicillin-class Antibacterial Start: 04-01-2024 End: 12-16-2024 take 1 tablet by mouth three times daily Amoxicillin 500 mg tablet Discontinued 500 mg PO THREE TIMES A DAY 30 0 April 01, 2024 1:00am December 16, 2024 9:22am benzonatate 200 mg oral capsule (6 sources) Non-narcotic Antitussive Start: 06-04-2023 End: 11-08-2023 take 1 capsule by mouth three times daily as needed for cough Benzonatate 200 mg capsule Discontinued 200 mg PO THREE TIMES A DAY as needed for cough 14 0 June 04, 2023 1:00am November 08, 2023 12:49pm biotin 1 mg oral capsule (10 sources) Start: 07-20-2022 End: 03-07-2024 take 1 [...] take 1 tablet by mouth twice daily naltrexone-buprop ion (Contrave) 8-90 mg TbER Take 1 (one) tablet by mouth 2 (two) times a day . 60 tablet 0 12/01/2020 12/01/2020 Discontinued (Error) cefdinir 300 mg oral capsule (7 sources) Cephalosporin Antibacterial Start: 03-23-2023 End: 03-07-2024 take 1 capsule by mouth twice daily Cefdinir 300 mg capsule Discontinued 300 mg PO TWICE A DAY 42 21 1 March 23, 2023 12:00am March 07, 2024 9:04am cephalexin 500 mg oral capsule (12 sources) Cephalosporin Antibacterial Start: 02-11-2022 End: 07-20-2022 [...] Take by mouth once daily. 0 Active cyclobenzaprine hydrochloride 10 mg oral tablet (5 sources) Muscle Relaxant Start: 08-07-2024 End: 12-16-2024 take 1 tablet by mouth three times daily as needed for pain Cyclobenzaprine 10 mg tablet Discontinued 10 mg PO THREE TIMES A DAY as needed for muscle spasm 30 0 August 07, 2024 12:00am December 16, 2024 9:26am May take up to 3 times daily as needed for muscle pain, muscle spasms. Do not combine with pain medications. Do not drive, operate machinery or safety sensitive work within 8 hours of dosing. diclofenac sodium 20 mg/ml topical solution (10 sources) Nonsteroidal Anti-inflammatory Drug Start: 07-21-2022 End: 10-20-2022 Diclofenac Sodium (Pennsaid) 20 mg/gram /actuation(2 %) solution in metered-dose pump Discontinued 2 NMA TOPICAL TWICE A DAY July 21, 2022 1:00am October 20, 2022 [...] knee docusate sodium 100 mg oral capsule (14 sources) Start: 05-14-2017 End: 09-28-2021 take 1 capsule by mouth twice daily as needed for constipation Docusate Sodium 100 MG capsule Discontinued 100 mg PO TWICE DAILY NEEDED as needed for Constipation 60 1 May 14, 2017 1:00am September 28, 2021 12:50pm doxycycline monohydrate 100 mg oral capsule (8 sources) Tetracycline-class Drug Start: 03-18-2023 End: 03-26-2023 take 1 capsule by mouth twice daily Doxycycline Monohydrate 100 mg capsule Discontinued 100 mg PO TWICE A DAY 14 0 March 18, 2023 12:00am March 26, 2023 10:12am gadoterate meglumine (DOTAREM) injection 17 mL (1 source) Start: 08-24-2020 End: 08-24-2020 gadoterate meglumine (DOTAREM) injection 17 mL ketorolac tromethamine 10 mg oral tablet (5 sources) Nonsteroidal Anti-inflammatory Drug, Cyclooxygenase Inhibitor Start: 08-04-2024 End: 12-16-2024 take 1 tablet by mouth every eight hours Ketorolac 10 mg tablet Discontinued 10 mg PO Q8H 15 0 August 04, 2024 12:00am December 16, 2024 9:26am maximum total duration of 5 days from all oral, intranasal, or parenteral formulations Do not take any other NSAIDS while on this medication Lacto No.10-Ievwxa-Jmj- Larch (Women's Probiotic) 25B cell-25B cell-50 mg capsule (13 sources) Start: 11-29-2021 End: 05-20-2024 Lacto No.14-Ravnpr-Gzn- Larch (Women's Probiotic) 25B cell-25B cell-50 mg capsule Discontinued NMA PO November 29, 2021 12:00am May 20, 2024 11:29am Start: 11-29-2021 Lacto No.76-Bi tzev-Kfi-Ixrqq (Women's Probiotic) 25B cell-25B cell-50 mg capsule [...] is okay. methylPREDNISolone 4 mg oral tablet (6 sources) Corticosteroid Start: 06-04-2023 End: 03-07-2024 take 1 tablet by mouth once Methylprednisolone (Medrol (Brennan)) 4 mg tablets,dose pack Discontinued 0 PO per package directions 21 0 June 04, 2023 1:00am March 07, 2024 9:03am PO PER PKG DIR nitrofurantoin, macrocrystals 25 mg / nitrofurantoin, monohydrate 75 mg oral capsule (5 sources) Nitrofuran Antibacterial Start: 11-08-2023 End: 11-15-2023 take 1 capsule by mouth every twelve hours at mealtime Nitrofurantoin Monohyd/M-Cryst 100 mg capsule Discontinued 1 NMA PO Q12H 14 7 0 November 08, 2023 12:00am November 14, 2023 12:00am November 15, 2023 12:06am administer with a meal/food; swallow whole; do not open, crush, dissolve , or chew oxyCODONE hydrochloride 5 mg oral tablet (19 sources) Opioid Agonist Start: 06-10-2024 End: 08-07-2024 [...] SEMAGLUTIDE WITH b12 20 unit s auto-injector (5 sources) Start: 10-17-2022 End: 02-23-2023 SEMAGLUTIDE WITH b12 20 unit s auto-injector Discontinued SC .WEEKLY October 17, 2022 12:00am February 23, 2023 1:07pm Tirzepatide (1 source) Start: 07-20-2022 End: 08-29-2022 Tirzepatide (Mounjaro) 5 mg/ 0.5 mL pen injector Discontinued 5 mg SC EVERY WEEK 2 2 July 20, 2022 1:00am August 29, 2022 1:59pm Tirzepatide (1 source) Start: 02-23-2023 End: 03-07-2024 Tirzepatide (Mounjaro) 10 mg/0.5 mL pen injector Discontinued 5 mg SC February 23, 2023 12:00am March 07, 2024 9:04am Tirzepatide (Mounjaro) 10 mg /0.5 mL pen injector (7 sources) Start: 02-23-2023 End: 03-07-2024 Tirzepatide (Mounjaro) [...] (Mounjaro) 5 mg/ 0.5 mL pen injector (9 sources) Start: 07-20-2022 End: 08-29-2022 Tirzepatide (Mounjaro) [...] 2022 1:00am August 29, 2022 1:59pm Tirzepatide (Weight Loss) (5 sources) Start: 06-10-2024 End: 12-16-2024 Tirzepatide (Weight Loss) (Z epbound) 15 mg/0.5 mL pen injector Discontinued 15 mg SC EVERY WEEK June 10, 2024 1:00am December 16, 2024 9:24am Start: 06-10-2024 Tirzepatide (W eight Loss) (Zepbound) 15 mg/0.5 mL pen injector Active 15 mg SC EVERY WEEK June 10, 2024 1:00am traMADol hydrochloride 50 mg oral tablet (5 sources) Opioid Agonist Start: 08-07-2024 End: 09-26-2024 [...] Vitamin B Complex (B Complex-Vitamin B12) tablet (10 sources) Start: 07-20-2022 End: 10-17-2022 Vitamin B [...] [Palpitations] Episodic E Codes: Place of occurrence (8 sources) Accident while engaged in household activity; Translations: [Unspecified place in unspecified non-institutional (private) residence as the place of occurrence of the external cause] 03-20-2023 Episodic Fracture of lower limb (11 sources) Fracture of great toe ; Translations: [...] disorder] Onset: 12-26-2023 12-26-2023 Chronic Noninfectious gastroenteritis (16 sources) Gastroenteritis; Translations: [Noninfective gastroenteritis and colitis, unspecified] Episodic Nonmalignant breast conditions (1 source) Heterogeneously dense breast composition; Translations: [Heterogeneously dense tissue of both breasts on mammography] 11-23-2023 Episodic Nonmalignant breast conditions (3 sources) Lump in upper inner quadrant of right breast; Translations: [Mass of upper inner quadrant of right breast] Open wounds of extremities (9 sources) Puncture wound of left foot; Translations: [...] current use of drug therapy; Translations: [Other mcc (current) drug therapy] 12-19-2024 Episodic Other aftercare (2 sources) Other termite exterminator (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) drug therapy; Translations: [Encounter for long-term [...] [Pruritus vulvae] Episodic Other nervous system disorders (4 sources) Carpal tunnel syndrome; Translations: [Carpal tunnel syndrome, bilateral upper limbs] 03-07-2024 Chronic Other nervous system disorders (7 sources) Carpal tunnel syndrome of left wrist; Translations: [Carpal tunnel syndrome, left upper limb] 09-26-2024 Chronic Other nervous system disorders (1 source) Bilateral carpal tunnel syndrome; Translations: [Carpal tunnel syndrome, bilateral upper limbs] 03-07-2024 Chronic Other nervous system disorders (1 source) Carpal tunnel syndrome, left upper limb; Translations: [Carpal tunnel syndrome, left upper limb] Onset: 01-06-2025 Chronic Other nervous system disorders (2 sources) Carpal tunnel syndrome, bilateral upper limbs; Translations: [Carpal tunnel syndrome, bilateral upper limbs] Onset: 04-07-2024 Chronic Other nervous system disorders (5 sources) Acute postoperative pain; Translations: [Other acute postprocedural pain] 06-10-2024 Episodic Other non-traumatic joint disorders (20 sources) Pain in left knee; Translations: [Left knee pain] Episodic Other nutritional; endocrine; and metabolic disorders (20 sources) Body mass index 30+ - obesity; Translations: [Obesity, unspecified] Onset: 05-06-2020 05-06-2020 Chronic Other nutritional; endocrine; and metabolic disorders (10 sources) Obese class I; Translations: [Obesity, unspecified] 07-21-2022 Chronic Other nutritional; endocrine; and metabolic disorders (1 source) Obesity, unspecified; Translations: [Obesity, unspecified] 10-17-2022 Chronic Other nutritional; endocrine; and metabolic disorders (1 source) History of adult obesity; Translations: [Personal history of other endocrine, nutritional and metabolic disease] 12-25-2023 Episodic Other screening for suspected conditions (not mental disorders or infectious disease) (20 sources) Mammography abnormal; Translations: [Magnetic resonance imaging of breast abnormal] Onset: 02-01-2024 11-23-2023 Episodic Other upper respiratory infections (10 sources) Pharyngitis; Translations: [Acute pharyngitis, unspecified] 12-12-2023 Episodic Residual codes; unclassified (1 source) Reduced libido; Translations: [Decreased libido] 10-02-2023 Episodic Screening and history of mental health and substance abuse codes (8 sources) Ex-smoker; Translations: [Personal history of nicotine dependence] 03-20-2023 Episodic Spondylosis; intervertebral disc disorders; other back problems (16 sources) Backache; Translations: [Dorsalgia, unspecified] Episodic Sprains and strains (16 sources) Hamstring injury; Translations: [Strain of muscle, fascia and tendon of the posterior muscle group at thigh level, right thigh, initial encounter] 08-07-2024 Episodic Substance-related disorders (2 sources) Nicotine dependence; Translations: [Cigarette nicotine dependence without complication] Chronic Superficial injury; contusion (11 sources) Abrasion, left great toe, initial encounter; [...] 09-15-2020 Episodic Other and unspecified benign neoplasm (10 sources) Benign neoplasm of right breast; Translations: [...] 06-10-2015 01-11-2018 Episodic Other non-traumatic joint disorders (19 sources) Pain in right shoulder; Translations: [Pain [...] Translations: [History of obesity] Onset: 11-23-2023 Episodic Unclassified (1 source) Requires vaccination Unclassified (1 source) Chronic right shoulder pain Results Test Name Value Interpretation Reference Range Facility Breast imaging reportOrdered By: Junito Lora on 02-25-2025 Study report [facility] Imaging Services [address] [place] [address] SCRN MAMM (CAD)W/RJ BILAT MR#: [id number] Acct: [id number] Name: DO OLSON Rep #: [id number] : 1980 F 44 From: Christen Lora MD PCP: KYRA Riddle Status: REG CLI Study:SCRN MAMM (CAD)W/RJ BILAT Date of Exa m: 02/24/25 Exam# [id number] Ordering Dr: Robyn Warner NP COTTON STOMPER-C EXAM: SCRN MAMM (CAD)W/RJ BILAT DATE: 02/24/2025 CLINICAL HISTORY: F, Age 44 y/o , SCREENING Routine screening, implants TECHNIQUE: Procedure Code: BISMWCADBTOM Modality: MG Procedure: SCRN MAMM (CAD)W/RJ BILAT COMPARISON: Prior exam(s) dated 02/01/2024 FINDINGS: TISSUE DENSITY: There are scattered areas of fibroglandular density. Bilateral Breast Mammographic Findings: No significant masses, calcifications or other abnormalities are identified. Implants are intact and free of complication BI/SCRN MAMM (CAD)W/RJ BILAT IMPRESSION: Stable screening mammogram, no suspicious findings OVERALL FINAL ASSESSMENT BI-RADS 2: BENIGN RECOMMENDATION: Routine annual follow-up in 1 Year Additional Recommendation none A letter with findings and recommendations will be mailed to the patient. Reading Location: [id number] CC: KYRA Warner; KYRA Padgett ~ Pharmacy Messenger: Signed [facility] SCRN MAMM (CAD)W/RJ BILATo n 02-24-2025 SCRN MAMM (CAD)W/RJ BILAT [facility] Imaging Services [address] [place], [place] [id number] SCRN MAMM (CAD)W/RJ BILAT MR#: [id number] Acct: [id number] Name: DO OLSON Rep #: [id number] : 1980 F 44 From: Junito Lora MD PCP: KYRA Riddle Status: REG CLI Study: SCRN MAMM (CAD)W/RJ BILAT Date of Exam: 01/28 Exam# [id number] Ordering Dr: Robyn Warner NP COTTON STOMPER-C EXAM: SCRN MAMM (CAD)W/RJ BILAT DATE: 02/24/2025 CLINICAL HISTORY: F, Age 44 y/o , SCREENING Routine screening, implants TECHNIQUE: Procedure Code: BISMWCADBTOM Modality: MG Procedure: SCRN MAMM (CAD)W/RJ BILAT COMPARISON: Prior exam(s) dated 02/01/2024 FINDINGS: TISSUE DENSITY: There are scattered areas of fibroglandular density. Bilateral Breast Mammographic Findings: No significant masses, calcifications or other abnormalities are identified. Implants are intact and free of complication BI/SCRN MAMM (CAD)W/RJ BILAT IMPRESSION: Stable screening mammogram, no suspicious findings OVERALL FINAL ASSESSMENT BI-RADS 2: BENIGN RECOMMENDATION: Routine annual follow-up in 1 Year Additional Recommendation none A letter with findings and recommendations will be mailed to the patient. Reading Location: [id number] CC: KYRA Warner; KYRA Padgett Pharmacy Messenger: Signed [facility] 01-14-2025 GARCÍA Telephone (GROVER) DO OLSON ([id number]) 1980 F Date Time Provider Department 01/14/25 ROBYN WARNER During your visit today, we recorded the following information about you: Linwood Wiseman, INDY 01/14/2025 11:51 AM Signed Lab results from [facility] collected on 12/30/24 on AG desk for review. Linwood Wiseman RN Allergies As of Date: 01/14/2025 Noted Allergy Reaction AMOXACILLIN (AMOXICILLIN) 04/09/2024 2 - Rash Date Reviewed: 12/19/2024 Reviewed by: Robyn Warner APRN.PRINTER ASSISTANT - Fully Assessed Reason for Visit: Outside [...] should start on August 11, 2024. - clotrimazole-betamethas one (LOTRISONE) cream Apply 1 [...] remission, mild *12/26/2023 Encounter Status:Closed by LINWOOD WISEMAN on 01/14/25 [facility] Anion gap in Serum or Plasma Ordered By: Robyn Warner on 12-30-2024 Anion gap [Moles/Vol] 11 mmol/L 5-15 [facility] BUN/creatinine ratioOrdered By: Robyn Warner on 12-30-2024 Urea nitrogen/Creatinine [Mass ratio] 17.1 mg/mg 10-[address] [facility] Bilirubin, totalOrdered By: Robyn Warner on 12-30-2024 Bilirubin [Mass/Vol] 0.28 mg/dL 0.00-1.30 [facility] Carbon dioxide, total [Moles /volume] in Central venous bloodOrdered By: Robyn Warner on 12-30-2024 CO2 [Moles/Vol] 24.8 mmol/L 21.0-32.[address] [facility] Chloride assayOrdered By: Regine Warner on 12-30-2024 Chloride [Moles/Vol] 106 mmol/L 98-108 [facility] Comprehensive Metabolic Prof ilon 12-30-2024 Albumin [Mass/Vol] 4.1 g/dL Normal 3.5-5.0 [facility] Comment on above: Performed By: #### L 500.4050 ####[facility] [address] [place], [address] Albumin/Globulin [Mass ratio] 1.9 {ratio} Normal 0.9-2.[address] [facility] Comment on above: Performed By: #### L 500.4050 ####[facility] [address] [place], [address] ALK PHOS 67 U/L Normal 35-[address] [facility] Comment on above: Performed By: #### L 500.4050 ####[facility] [address] [place], [address] ALT [Catalytic activity/Vol] 16 U/L Normal <=[address] [facility] Comment on above: Performed By: #### L 500.4050 ####[facility] [address] [place], [address] AST [Catalytic activity/Vol] 21 U/L Normal <=[address] [facility] Comment on above: Performed By: #### L 500.4050 ####[facility] [address] [place], [address] Bilirubin [Mass/Vol] 0.28 mg/dL Normal 0.00-1.30 [facility] Comment on above: Performed By: #### L 500.4050 ####[facility] [address] [place], [address] BUN/CRE 17.1 RATIO Normal 10-[address] [facility] Comment on above: Performed By: #### L 500.4050 ####[facility] [address] [place], [address] Calcium [Mass/Vol] 8.9 mg/dL Normal 7.6-11.0 [facility] Comment on above: Performed By: #### L 500.4050 ####[facility] [address] [place], [address] Chloride [Moles/Vol] 106 mmol/L Normal 98-108 [facility] Comment on above: Performed By: #### L 500.4050 ####[facility] [address] [place], [address] CO2 [Moles/Vol] 24.8 mmol/L Normal 21.0-32.[address] [facility] Comment on above: Performed By: #### L 500.4050 ####[facility] [address] [place], [address] Creatinine [Mass/Vol] 0.74 mg/dL Normal 0.70-1.20 [facility] Comment on above: Performed By: #### L 500.4050 ####[facility] [address] [place], [address] GAP 11 Normal 5-[address] [facility] Comment on above: Performed By: #### L 500.4050 ####[facility] [address] [place], [address] GFR/1.73 sq M.predicted among non-blacks MDRD (S/P/Bld) [Vol rate/Area] 103 mL/min/{1.73_m2} Normal >[address] [facility] Comment on above: Result Comment: mL/m in/1.73m2 CKD-EPI Creatinine Equation (2020) Performed By: #### L 500.4050 ####[facility] [address] [place], [address] Globulin (S) [Mass/Vol] 2.2 g/dL Normal 2.2-4.[address] [facility] Comment on above: Performed By: #### L 500.4050 ####[facility] [address] [place], [address] Glucose [Mass/Vol] 97 mg/dL Normal 70-99 [facility] Comment on above: Performed By: #### L 500.4050 ####[facility] [address] [place], [address] Potassium [Moles/Vol] 4.0 mmol/L Normal 3.3-5.1 [facility] Comment on above: Performed By: #### L 500.4050 ####[facility] [address] [place], [address] Sodium [Moles/Vol] 141 mmol/L Normal 133-145 [facility] Comment on above: Performed By: #### L 500.4050 ####[facility] [address] [place], [address] T PROT 6.3 g/dL Normal 5.9-8.[address] [facility] Comment on above: Performed By: #### L 500.4050 ####[facility] [address] [place], [address] Urea nitrogen [Mass/Vol] 13 mg/dL Normal 4-[address] [facility] Comment on above: Performed By: #### L 500.4050 ####[facility] [address] [place], [address] Discharge Instructionon Discharge Instruction [facility] Medical Records Department [address] [place] [address] Instructions for Home/Discharge Instructions 12/30/24 0801 MR#: [id number] Acct: [id number] Name: DO OLSON Rep #: [id number] : 1980 44 From: Eulogio Mello DO PCP: Kartik Padgett NP-C Status[place] [facility] [place]charge Instructions Diet Discharge Diet: No restrictions [...] Plan Admission Primary Reason for Your Visit: Left carpal tunnel release Attending Provider: Eulogio Mello Primary Care Provider: Kartik Padgett [facility] Instructions Print Language: Zambian Discharge Orders/Prescriptions Prescriptions: New hydrocodone-acetaminoph en 5-325 mg tablet 1 - 2 tab PO Q4H PRN (Reason: pain) 3 Days Qty: 7 0RF Continued fexofenadine [Melinda Allergy] 180 mg tablet 180 mg PO DAILY PRN (Reason: allergic symptoms) phentermine 37.5 mg tablet 37.5 mg PO DAILY metformin 500 mg tablet extended release 24 hr 1,000 mg PO DAILY Patient Comments: FOR WEIGHT LOSS collagen SUPPELEMENT 1 dose PO DAILY trazodone 50 mg tablet 50 mg PO QHS PNV cmb#95-ferrous fumarate-FA [] 28 mg iron- 800 mcg tablet 1 tab PO DAILY Mounjaro 7.5 mg/0.5 mL pen injector 7.5 mg subcut QWEEK Patient Comments: TAKES ON FRIDAYS LAST DOSE 12/19/24 FOR WEIGHT LOSS fluoxetine 20 mg capsule See Rx Instructions .ROUTE .COMPLEX Qty: 30 0RF Dose Instruction: TAKE 1 CAPSULE BY MOUTH DAILY Rx Instructions: TAKE 1 CAPSULE BY MOUTH DAILY Referrals / Follow Up: Kartik Padgett VSC, COTTON STOMPER-C [Primary Care Provider] - Disposition Disposition (needs filled in before D/C Order can be placed): Home, Self Care 12/30/24 1030 Eulogio Mello DO CC: [facility] STOMPER-C Kartik Padgett Signed Normal [facility] Glomerular filtration rate ( GFR) estimation/1.73 sq m using serum, plasma, or whole bOrdered By: Robyn Warner on 12-30-2024 GFR/1.73 sq M.predicted among non-blacks MDRD (S/P/Bld) [Vol rate/Area] 103 mL/min/{1.73_m2} >[address] [facility] Comment on above: mL/min/1.73m2 CKD-EP I Creatinine Equation (2020) Laboratory - Chemistry and C hemistry - challengeOrdered By: Robyn Warner on 12-30-2024 AST [Catalytic activity/Vol] 21 U/L <[address] [facility] MR/POSTOP.ANEon 12-30-2024 MR/POSTOP[facility] Medical Records Department [address] [place] [address] Anesthesia Postop Eval I 12/30/24 0800 MR#: [id number] Acct: [id number] Name: DO OLSON Rep #: [id number] : 1980 44 From: Cristina Cline CRNA PCP: ALLEY RiddleC Status:REG SDC Y Race: C Location: [place] [address] Anesthesia: Postop Eval I Current Vital Signs Temperature: 97.2 F Pulse Rate: 75 Blood Pressure: 113/76 Respiratory Rate: 16 Pulse Ox: 96 Oxygen Delivery Method: Room Air Assessment Airway patent: Yes Spontaneous unlabored respirations: Yes Mental status: Awake and Calm nausea: No Vomiting: No Anesthesia Complication: No Fluid Hydration Crystalloid volume administer (ml): 500 Total IV fluid infused: 500 Progress Note Anesthesia document: Postop Eval 1 completed: Yes 12/30/24801 Date Cristina Cline FORGING 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 Samiigner Signature: Date CC: Signed Normal [facility] MR/JUEIZVXN6xz 12-30-2024 [facility] Medical Records Department [address] [place] [address] Anesthesia Postop Eval II 12/30/242017 MR#: [id number] Acct: [id number] Name: DO OLSON Rep #: [id number] : 1980 44 From: Neil Worthington MD PCP: ALLEY RiddleC Status:[facility] Y Race: C [place] [facility]esthesia Postop Eval I Sum Postop Eval Completion status Anesthesia document: Postop Eval 1 completed: Yes Anesthesia Postop Eval I Summary Anesthesia Postop Eval I Summary: Anesthesia Postop Eval I: Assessment Summary Airway patent Yes 12/30/24 08:02 FORGING 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.RALF Spontaneous unlabored Yes 12/30/24 08:02 FORGING 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HILTON respirations Mental status Awake,Calm 12/30/24 08:02 FORGING 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.RALF nausea No 12/30/24 08:02 FORGING 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.RALF Vomiting No 12/30/24 08:02 FORGING 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HILTON Anesthesia Postop Eval I: Fluid Summary Crystalloid volume administer 500 12/30/24 08:02 FORGING 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.RALF (ml) Colloids volume administered ( ml) Blood Product volume administered (ml) Total IV fluid infused 500 12/30/24 08:02 FORGING 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.RALF Anesthesia Postop Eval I: Summary Notes Anesthesia Complication No 12/30/24 08:02 FORGING 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.RALF Anesthesia Complication Comment: Post-operative progress note Anesthesia: Postop Eval II Evaluation Mental status: Awake and Calm Pain Level: 1 nausea: No Vomiting: No Complications Anesthesia Complication: No 12/30/242017 Date Neil Majano Signature: Date CC: Signed Normal [facility] Operative Reporton 5 Operative Report [facility] Medical Records Department [address] [facility] [place] [address] Operative Report 12/30/24 0759 MR#: [id number] Acct: [id number] Name: DO OLSON Rep #: [id number] : 1980 44 From: Eulogio Mello DO PCP: KYRA Riddle Status:[facility] Location: [place] [address] Operative Report (Standard) Operative Information Date of Procedure: 12/30/24 Pre-Operative Diagnosis: Left carpal tunnel syndrome Post-Operative Diagnosis: Same Surgery/Procedure Performed: Left open carpal tunnel release furnace process supervisor: Yes Clinical Statistical Programmer: Sukhdeep Addison Tasks completed by recreation assistant: Opening closing and Retracting Type of Anesthesia: Local and MAC RN Documented Start/Stop Times: Operation Date: 12/30/24 07:30 Case Time Into Pre-Op 12/30/24 06:02 Out of Pre-Op 12/30/24 07:21 Anesthesia Start 12/30/24 07:25 Into Room 12/30/24 07:25 Procedure Start 12/30/24 07:38 Procedure End 12/30/24 07:54 Anesthesia End 12/30/24 07:55 Out of Room 12/30/24 07:55 Procedure Start Time: 07:38 Procedure Stop Time: 07:54 Select all DRAINS/GRAFTS/IMPLANTS that apply: None Estimated Blood Loss: 0 Specimen collected: No Description of surgery: Preoperative diagnosis; left carpal tunnel syndrome Postoperative diagnosis; same Procedure: Left open carpal tunnel release Anesthesia: Local with MAC Tourniquet time; 10 minutes 250 mm Hg Complications: None Indication for procedure; This is a 44-year-old female with long-standing symptoms consistent with carpal tunnel syndrome the patient did have electrodiagnostic evidence of this and has failed conservative treatment. Risks benefits and alternatives were reviewed [...] and extremity were being contemplated. 0.5 percent lidocaine with epinephrine was injected into the incisional [...] no intraoperative complications patient tolerated the procedure well and was transferred to the PACU. All counts were correct. Surgical Findings: Hypertrophy of transverse carpal ligament Complications Complications: No 12/30/24 0801 Cosigner Signature (if applicable): CC: KYRA Padgett; Dr. Eulogio Mello DO Signed Normal [facility] Potassium measurement (mass/ volume)Ordered By: Robyn Warner on 12-30-2024 Potassium (Unsp spec) [Mass/Vol] 4.0 mmol/L 3.3-5.[address] [facility] Serum creatinine measurement (mass/volume)Ordered By: Robyn Warner on 12-30-2024 Creatinine [Mass/Vol] 0.74 mg/dL 0.70-1.20 [facility] Serum globulin measurementOr dered By: Robyn Warner on 12-30-2024 Globulin (S) [Mass/Vol] 2.2 g/dL 2.2-4.[address] [facility] Serum glucose measurement (m ass/volume)Ordered By: Robyn Warner on 12-30-2024 Glucose [Mass/Vol] 97 mg/dL 70-99 [facility] Serum or plasma alanine ramos otransferase (ALT) measurementOrdered By: Robyn Warner on 12-30-2024 ALT [Catalytic activity/Vol] 16 U/L <[address] [facility] Serum or plasma albumin tyrell urement (mass/volume)Ordered By: Robyn Warner on 12-30-2024 Albumin [Mass/Vol] 4.1 g/dL 3.5-5.0 [facility] Serum or plasma albumin/glob ulin mass ratioOrdered By: Robyn Warner on 12-30-2024 Albumin/Globulin [Mass ratio] 1.9 {ratio} 0.9-2.[address] [facility] Serum or plasma alkaline valentino sphatase measurementOrdered By: Robyn Warner on 12-30-2024 ALP [Catalytic activity/Vol] 67 U/L 35-[address] [facility] Serum or plasma calcium tyrell urement (mass/volume)Ordered By: Robyn Warner on 12-30-2024 Calcium [Mass/Vol] 8.9 mg/dL 7.6-11.0 [facility] Serum or plasma urea nitroge n measurement (mass/volume)Ordered By: Robyn Warner on 12-30-2024 Urea nitrogen [Mass/Vol] 13 mg/dL 4-[address] [facility] Sodium levelOrdered By: Robyn Warner on 12-30-2024 Sodium [Moles/Vol] 141 mmol/L 133-145 [facility] Total proteinOrdered By: Robyn Warner on 12-30-2024 Protein [Mass/Vol] 6.3 g/dL 5[facility]9-8.4 [facility] (GROVER ) DO OLSON ([id number]) 1980 F Date Time Provider Department 12/19/24 7:00 AM ROBYN WARNER During your visit today, we recorded the following information about you: Pulse Blood pressure Weight 92/minute 108/76 73.5 kg Robyn Warner APRN.[facility] 12/19/2024 7:45 AM Addendum -- Metformin can interfere with the absorption of B12 in your food, please add a B12 1,000-2,400 mcg supplement every day - [place] (tirzepatide): increase dose to 7.5 mg today, [...] protein AND 2g carb Two Good Lowfat [place] Yogurt, Lower Sugar - 12g protein AND [...] oz is 28 gm protein Beef, Chicken, [place], Pork, Eli 1 oz 7g Fish, Tuna [...] a meal replacement) ___ Protein AND carbs Beef/[place] Jerky 1 oz dried 10-15g protein - check carb count, can be high if sugar added Slim Devante - 6 gm protein and 4 net carb Great Value original turkey sausage sticks - 7 gm protein and 2 gm carb Ugo (at [facility]) Original smoked sausage sticks - 8 gm protein and 0 carb Imitation Crab Meat 1 oz - 2g protein AND 4g carb Milk, skim 2% or 1% 8 oz - 8g protein AND 12g carb Fairlife 2% milk 8 oz -13g protein AND 6g carb Guatemalan yogurt Full Fat Guatemalan Yogurt 1 cup - 20.4g protein AND 9.1g carb 2% [place] Yogurt 1 cup - 22.7g protein AND 9.1g carb 0% (fat-free) [place]alan Yogurt - 1 cup 24g protein AND 9.3g carb Aldi Protein Guatemalan yogurt single svg - 13/g15g protein AND 7g carb Chobani Zero Sugar single svg: - 12g protein AND 5g carb Dannon Guatemalan Light + Fit 1 single svg - 12g protein AND 9g carb Oikos Pro single svg - 20g protein AND 8g carb Oikos Triple Zero Guatemalan Nonfat Yogurt 1 single svg - 15g protein AND 7g carb :ratio, KETO Friendly Dairy Snack 1 single svg - 15g protein AND 2g carb :ratio Protein 1 single svg - 25g protein AND 8g carb Two Good Lowfat Guatemalan Yogurt, [place], Lower Sugar - 12g protein AND 2g carb Yoplait Protein 1 single svg 15g protein AND 5g carb Dairy Free - [place] unsweetened Guatemalan almond/soy 15g protein AND 3g carb Dairy Free - True Goodness by [facility] coconut-based yogurt alternative 1 g protein 1 g net carb 180 phil Drinkable yogurts: Chobani drinkable 15g, 20g and 30g protein AND 18 carb (too (more content not included)... Normal [facility] Orthopedic Visit Reporton Orthopedic Visit Report [facility] [address] [place] [address] OFFICE VISIT Date of Service: 09/26/24 MR#: [id number] Acct: [id number] Name: DO OLSON Rep #: [id number] : 1980 Provider: Dr. Eulogio peralta, DO Age/Sex: 44/F Location: [facility] Status: Signed Intake Vital Signs 09/22/24 11:14 [...] the decisions made by me, Dr. Eulogio Mello DO 09/26/24 0743. Part of today???s visit [...] Performing Provider: Eulogio Mello DO Performing Location: [facility] Administered by: Eulogio Mello DO on 09/26/24 09:09 Dose Route Admin Location Dispensed Lot Number Expiration Date NDC Man ufacturer 20 mg intra-articular left wrist carpal tunnel 0.5 mL [id number] 12/26/25 0009 [facility]0280[facility] Info 06/10/2024: Right open carpal tunnel release left carpal tunnel injection 03/12/2024 EMG bilateral upper extremity: 1. Electrodiagnostic findings suggestive of bilateral median mononeuropathy. This is consistent with a mild to mod (more content not included)... Normal [facility] CNOVon 09-25-2024 CNOV Office Visit (OBGYWM ) DO OLSON ([id number]) 1980 F Date Time Provider Department 09/25/24 3:30 PM ROBYN WARNER During your visit today, we recorded the following information about you: Pulse Blood pressure Weight 65/minute 116/76 73.5 kg Robyn Warner APRN.PRINTER ASSISTANT 09/25/2024 4:47 PM Signed Some documentation from [...] and granola S - none D - [id number] protein and veg and small carb - potato/pasta/corn/rice No dessert S - rare - popcorn or ice cream Fluids: water Bedtime - [id number] Eating Disorder binge eating Dietary changes: B [...] - E (more content not included)... Normal [facility] Inital Evaluation (1) - PTon 08-29-2024 Inital Evaluation (1) - PT [facility] Physical Therapy [facility] [address] [place] [address]. [address] [place] [address] / REHABILITATION SERVICES INITIAL EVALUATION MR#: [id number] Acct: [id number] Name: TOMMY,DO DEW Rep #: [id number] : 1980 44 From: Harrison Smith PT, ATC Referring Dr.: Dr. Daryl Peralta MD Status: REG RCR Insurance: [employer] SELF PAY INSURANCE Patient's Visit Information Visit Information Visit Information: DO OLSON is a 44 year old F referred to Physical Therapy by Dr. Daryl Peralta MD with a diagnosis of R proximal hamstring rupture 07/16/24. Date of Evaluation: 08/29/24 Physical Therapist: Harrison Smith, PT, ATC Visit Plan Frequency: 1-2x /Week [...] to be FAXED BACK to us at [phone] for Medicare purposes. For Medicare only, by signing this I certify the plan of care. Please let me know if there are questions or concerns regarding this plan of care. Physician Signature: Date: 08/29/24 1353 CC: KYRA Padgett; Dr. Daryl Peralta MD [facility] Signed Normal [facility] Lower Ext/No Jt/w/oon 2024 Lower Ext/No Jt/w/o [facility] Imaging Services [address] [place], [place] [address] Lower Ext/No Jt/w/o MR#: [id number] Acct: [id number] Name: DO OLSON Rep #: [id number] : 1980 F 44 From: Fausto Glover PCP: KYRA Riddle Status: REG CLI Study: Lower Ext/No Jt/w/o Date of Exam: 08/07/24 Exam# [id number] Ordering Dr: Brooke Liu PROCEDURE: LOWER EXT/NO [...] moderate amount of associated hematoma. Reading Location: [address] CC: COTTON STOMPERCorey Padgett; KYRA Liu Pharmacy Messenger: Signed Normal [facility] Magnetic resonance imaging r eportOrdered By: Fausto Garcia on 08-07-2024 Study report [facility] Imaging Services [address] [place] [address] Lower Ext/No Jt/w/o MR#: [id number] Acct: [id number] Name: DO OLSON Rep #: [id number] : 1980 F 44 From: Leodan Garcia MD PCP: KYRA Riddle Status: REG CLI Study:Lower Ext/No Jt/w/o Date of Exam: 08/07/24 Exam# [id number] Ordering Dr: Sophie Liu PROCEDURE: LOWER EXT/NO [...] moderate amount of associated hematoma. Reading Location: [address] CC: KYRA Padgett; KYRA Liu ~ Pharmacy Messenger: Signed [facility] Orthopedic Visit Reporton Orthopedic Visit Report [facility] [address] [place] [address] OFFICE VISIT Date of Service: 08/07/24 MR#: [id number] Acct: [id number] Name: DO OLSON Rep #: [id number] : 1980 Provider: KYRA perdomo Age/Sex: 44/F Location: [facility] Status: Signed Intake Vital Signs 06/10/24 06:13 08/07/24 15:20 Height 5 ft 7 in 5 ft 7 in Intake Visit Reasons: RIGHT LEG Chief Complaint: ST, TRUJILLO, cough, congestion Allergies amoxicillin Allergy (Verified 06/10/24 06:11) Rash [facility] Medical History Wears glasses Smoker Accident in [...] doing this. Coding Level of Care Code Attention Susi Diagnoses Tear of right hamstring S76.311A Right [...] Crutches provi (more content not included)... Normal [facility] Femur Min 2 Viewson 08-05-19 25 Femur Min 2 Views [facility] Imaging Services [address] [place] [address] Femur Min 2 Views MR#: [id number] Acct: [id number] Name: DO OLSON Rep #: [id number] : 1980 F 44 From: Nnamdi Pagan MD PCP: KYRA Riddle Status: DEP AMB Study: Femur Min 2 Views Date of Exam: 08/04/24 Exam# [id number] Ordering Dr: Brooke Liu PROCEDURE: FEMUR MIN 2 VIEWS REASON FOR EXAM: Injury, pain TECHNIQUE: 2 view(s) of right femur, 4 total images COMPARISON: None. FINDINGS: RIGHT FEMUR: No fracture. No periosteal reaction identified. No osseous lesion seen. RAD/Femur Min 2 Views IMPRESSION: Study appears within limits. Reading Location: [id number] CC: KYRA Padgett; KYRA Liu Pharmacy Messenger: Signed Normal [facility] Orthopedic Visit Reporton Orthopedic Visit Report [facility] [address] [place] [address] OFFICE VISIT Date of Service: 08/04/24 MR#: [id number] Acct: [id number] Name: DO OLSON Rep #: [id number] : 1980 Provider: KYRA perdomo Age/Sex: 44/F Location: [facility]LINDA Status: Signed Intake Vital Signs 06/10/24 06:13 Height 5 ft 7 in Intake Visit Reasons: right hamstring Allergies amoxicillin Allergy (Verified 06/10/24 06:11) Rash [facility] Medical History Wears glasses Smoker Accident in [...] the decisions made by me, KYRA Ortiz 08/04/24 9060. Part of today???s visit was documented by [...] follow-up h (more content not included)... Normal [facility] Pelvis 1 or 2 Viewson 2024 Pelvis 1 or 2 Views [facility] Imaging Services [address] [place], [place] [id number] Pelvis 1 or 2 Views MR#: [id number] Acct: [id number] Name: DO OLSON Rep #: [id number] : 1980 F 44 From: Nnamdi Pagan MD PCP: KYRA Riddle Status: DEP AMB Study: Pelvis 1 or 2 Views Date of Exam: 08/04/24 Exam# [id number] Ordering Dr: Brooke Liu PROCEDURE: PELVIS 1 OR 2 VIEWS REASON FOR EXAM: Pain, injury TECHNIQUE: 1 view(s) of the pelvis. COMPARISON: None FINDINGS: No fracture or dislocation. Symmetric appearing SI joints and pubic symphysis appear within limits. No osseous lesion identified. RAD/Pelvis 1 or 2 Views IMPRESSION: No fracture or dislocation. Reading Location: [id number] CC: KYRA Padgett; KYRA Liu [facility] Messenger: Signed [facility] CNOVon 07-03-2024 CNOV Office Visit (OBGYWM ) DO OLSON ([id number]) 1980 F Date Time Provider Department 07/03/24 2:30 PM ROBYN WARNER During your visit today, we recorded the following information about you: Pulse Blood pressure Weight 95/minute 113/77 71.7 kg Robyn Warner APRN.CNP 07/03/2024 8:40 PM Signed Some documentation [...] and granola S - none D - 3606-9752 protein and veg and small carb - potato/pasta/corn/rice No dessert S - rare - popcorn or ice cream Fluids: water Bedtime - 2255-6044 Eating Disorder binge eating Dietary changes: B [...] Holter monitor normal 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 [facility] Discharge Instructionon 05-28 Discharge Instruction [facility] Medical Records Department [address] [place] [address] Instructions for Home/Discharge Instructions 06/10/24 0756 MR#: [id number] Acct: [id number] Name: DO OLSON Rep #: [id number] : 1980 43 From: Eulogio Mello DO PCP: Kartik Padgett NP-C Status[place] [facility] [place] Instructions Diet Discharge Diet: No restrictions [...] Eulogio Mello Primary Care Provider: Kartik Padgett [facility] Instructions Print Language: Zambian Discharge Orders/Prescriptions Prescriptions: New oxycodone 5 mg [...] DAILY Referrals / Follow Up: Kartik Padgett, CASTRO-C [Primary Care Provider] - Disposition Disposition (needs filled in before D/C Order can be placed): Home, Self Care 06/10/24 0757 [facility] CC: KYRA Padgett Signed [facility] MR/POSTOP.[facility] 06-10-2024 [address]OP.[facility] Medical Records Department [address] [place] [address] Anesthesia Postop Eval I 06/10/24 0803 MR#: [id number] Acct: [id number] Name: DO OLSON Rep #: [id number] : 1980 43 From: Nnamdi Gann CRNA PCP: KYRA Riddle Status:REG SDC Y Race: C Location: [place] [address] Anesthesia: Postop Eval I Current Vital Signs [...] Anesthesia document: Postop Eval 1 completed: Yes 06/10/24 0804 Date Nnamdi Gann CRNA Cosigner Signature: Date CC: Signed Normal [facility] MR/KPCIOYYA2qu 06-10-2024 MR/POSTOPAN2 [facility] Medical Records Department [address] [place] [address] Anesthesia Postop Eval II 06/10/24857 MR#: [id number] Acct: [id number] Name: DO OLSON Rep #: [id number] : 1980 43 From: Victor Manuel Rosas MD PCP: ALLEY RiddleC Status:[facility] Y Race: C [place] [facility] [place]esthesia Postop Eval I Sum Postop Eval Completion status Anesthesia document: Postop Eval 1 completed: Yes Anesthesia Postop Eval I Summary Anesthesia Postop Eval I Summary: Anesthesia Postop Eval I: Assessment Summary Airway patent Yes 06/10/24 08:04 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.RWOO Spontaneous unlabored Yes 06/10/24 08:04 FORGING 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.RWOO respirations Mental status Awake,Calm 06/10/24 08:04 FORGING 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.RWOO nausea No 06/10/24 08:04 FORGING 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.RWOO Vomiting No 06/10/24 08:04 FORGING 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.RWOO Anesthesia Postop Eval I: Fluid Summary Crystalloid volume administer 10 06/10/24 08:04 FORGING 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.RWOO (ml) Colloids volume administered ( ml) Blood Product volume administered (ml) Total IV fluid infused 10 06/10/24 08:04 FORGING 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.RWOO Anesthesia Postop Eval I: Summary Notes Anesthesia Complication No 06/10/24 08:04 FORGING 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.RWOO Anesthesia Complication Comment: Post-operative progress note Anesthesia: Postop Eval II Evaluation Mental status: Awake and Calm Pain Level: 0 nausea: No Vomiting: No Complications Anesthesia Complication: No 06/10/24857 Date Victor Manuel Rosas MD Cosigner Signature: Date CC: Signed Normal [facility] Operative Reporton 5 Operative Report [facility] Medical Records Department [address] [place] [address] Operative Report 06/10/24 0754 MR#: [id number] Acct: [id number] Name: DO OLSON Rep #: [id number] : 1980 43 From: Eulogio Funmilayo AGUIRRE PCP: ALLEY RiddleC Status:[facility] Location: [place] [address] Operative Report (Standard) Operative Information Date of Procedure: 06/10/24 Pre-Operative Diagnosis: Bilateral carpal tunnel syndrome Post-Operative Diagnosis: Same Surgery/Procedure Performed: Right open carpal tunnel release 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 Eulogio Mello DO Signed Normal 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: Anesthesia History - quality engineer Hx Hospitalization No 05/20/24 10:34 Any Problems [...] take am of surgery PONV PONV - quality engineer: PONV - quality engineer Female No 05/20/24 10:34 HX of Motion Sickness No 05/20/24 10:34 HX of N/V After Surgery No 05/20/24 10:34 Non-Smoker No 05/20/24 10:34 Duration of Surgery greater No 05/20/24 10:34 than 60 minutes Number of Risk Factors PONV Score Height Weight Height Weight: Anesthesia: Height Weight Height 5 ft 7 in 12/12/23 06:35 Respiratory Assessment Respiratory Assessment - quality engineer: Respiratory Tract Infection Hx - quality engineer Hx Respiratory Tract Infection No 05/20/24 10:34 STOP Sleep Apnea STOP Sleep Apnea - quality engineer: STOP Sleep Apnea - quality engineer Hx Hypertension No 05/20/24 10:34 Hx Sleep [...] Tobacco Use History Tobacco Use History - quality engineer: Tobacco Use History - quality engineer Tobacco Use Smoking Status Current every day smoker 05/20/24 10:34 Hx Tobacco Use Yes 05/20/24 10:34 Years Smoking Packs Smoked per Day Smoking Cessation Date was Yes - quit smoking within 15 05/20/24 10:34 within the last 15 years years Hx Smoking Cessation Date 05/28/19 05/20/24 10:34 Hx Smoking Cessation Counseling Hematologic Medial History Hematologic Hx - quality engineer: 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 Specify any problems Hx of Preganancy in last 3 No 05/20/24 10:34 Months Nurse Filling Out Transfusion MGSAMEERA 05/20/24 10:34 Questions: Date: 05/20/24 05/20/24 10:34 Time: 10:37 05/20/24 10:34 Patient unable to answer at this time (ie. confused, unrespo /Reproduction History /Reproductive History - quality engineer: /Reproductive Hx- quality engineer Hx Now No 05/20/24 10:34 Gestational Age (in weeks): EDC: Hx Hx Para Hx Section SAB No 05/20/24 10:34 PFSH Medical History (Updated 05/20/24 @ 10:42 by [...] / Time (more content not included)... Normal [facility] CNOVon 04-09-2024 [facility] Office Visit (OBGYWM ) DO OLSON ([id number]) 1980 F Date Time Provider Department 04/09/24 11:30 AM ROBYN WARNER During your visit today, we recorded the following information about you: Pulse Blood pressure Weight 85/minute 122/76 70.8 kg Robyn Warner APRN.PRINTER ASSISTANT 04/09/2024 7:51 PM Signed Some documentation from [...] and granola S - none D - 7879-0080 protein and veg and small carb - potato/pasta/corn/rice No dessert S - rare - popcorn or ice cream Fluids: water Bedtime - 5722-9123 Eating Disorder binge eating Dietary changes: B [...] 24.43 kg (more content not included)... [facility] Urgent Care Visit Reporton 1 06-01-2023 Urgent Care Visit Report [facility] [address], [address] [place], [place] [address] OFFICE VISIT Date of Service: 04/01/24 MR#: [id number] Acct: [id number] Name: DO OLSON Rep #: [id number] : 1980 Provider: DALY Wetzel Age/Sex: 43/F Location: [facility] Status: Signed Intake Vital Signs 12/12/23 06:35 04/01/24 06:11 Height 5 ft 7 in BP 126/64 H Blood Pressure Location Lt brachial Position Sitting Respiration 15 Pulse 87 Pulse Source NIBP Temp 98.7 F Temp Source Oral Pulse Oximetry (%) 97 Oxygen Delivery Method room air Intake Visit Reasons: ST/TRUJILLO/CONGESTION Chief Complaint: ST, TRUJILLO, cough, congestion Dog Barber Required: No Is patient in pain?: Yes [...] habitus Orientation: alert, awake and oriented x3 [facility] Head: normal to inspection Ears: hearing grossly [...] sooner shou (more content not included)... Normal [facility] Orthopedic Visit Reporton Orthopedic Visit Report [facility] [address] [place] [address] OFFICE VISIT Date of Service: 03/14/24 MR#: [id number] Acct: [id number] Name: DO OLSON Rep #: [id number] : 1980 Provider: Dr. Eulogio peralta DO Age/Sex: 43/F Location: [facility] Status: Signed Intake Vital Signs 12/12/23 06:35 Height 5 ft 7 in Intake Visit Reasons: BL HANDS Accompanied by: Self Is patient in pain?: No Allergies No Known Allergies Allergy (Verified 03/14/24 09:19) Medications ???Medication ???Instructions ???Recorded ???Confirmed ???Type Lactobacillus 25 billion cap PO 11/29/21 03/14/24 History cell-Bifido 25 billion wolq-TKO-uhqnm capsule (Women's Probiotic) fexofenadine 180 mg tablet [...] decisions made by me, Dr. Eulogio Mello, 03/14/24 0809. Part of today???s visit was [...] relieve a (more content not included)... Normal [facility] NCS and/or EMG Patienton NCS and/or EMG Patient [facility] Pulmonary Services/Neurology [address] [place] [address] MR#: [id number] Acct: [id number] Name: DO OLSON Rep #: [id number] : 1980 43 From: Jessica Sorenson MD [...] Multi Select Codes Neurology Neurology Interp Codes: 51320-54 Musc test done w/n test comp (interp) (2) and 38576-14 Nrv cndj test 13/> studies (interp) 03/12/24 1505 Date Jessica Sorenson MD CC: COTTON STOMPER-C Kartik Padgett; Dr. Jessica Sorenson MD; Dr. Eulogio Mello DO Date Dictated: 03/12/24 1502 Date Transcribed: 03/12/241501 Pharmacy Messenger: BEVERLY Signed Normal [facility] Orthopedic Visit Reporton Orthopedic Visit Report [facility] [facility] [address] [place] [address] OFFICE VISIT Date of Service: 03/07/24 MR#: [id number] Acct: [id number] Name: DO OLSON Rep #: [id number] : 1980 Provider: Dr. Eulogio peralta DO Age/Sex: 43/F Location: [facility] Status: Signed Intake Vital Signs 12/12/23 06:35 [...] PO 11/29/21 03/07/24 History cell-Bifido 25 billion pdqt-BON-atvsi capsule (Women's Probiotic) fexofenadine 180 mg tablet [...] made by me, Dr. Eulogio Mello, DO 03/07/24 0844. Part of today???s visit was [...] and wrist (more content not included)... Normal [facility] CNOVon 02-13-2024 CNOV Office Visit (OBGYWM ) DO OLSON ([id number]) 1980 F Date Time Provider Department 02/13/24 7:30 AM ROBYN WARNER OBERIC During your visit today, we recorded the following information about you: Pulse Blood pressure Weight 92/minute 110/71 73.9 kg Robyn Warner APRN.PRINTER ASSISTANT 02/13/2024 7:50 PM Signed Some documentation from [...] and granola S - none D - 0551-3041 protein and veg and small carb - potato/pasta/corn/rice No dessert S - rare - popcorn or ice cream Fluids: water Bedtime - 3398-4721 Eating Disorder binge eating Dietary changes: B [...] reviewed with the patient. Outside labs: 12/27/2023 [facility] CBC WNL (more content not included)... [facility] CNCOon 02-05-2024 CNCO HNO ID: [id number] Author: COORDINATOR, MAMMOGRAPHY, ? Service: ? Author Type: Physician Type: Letter Filed: 02/05/2024 06:25 Note Text: February 06, 2024 PID: [id number] Do Olson [address] [place] [address] Dear Ms. Olson, We are pleased to [...] report will be kept on file at [facility] as part of your permanent medical record and are available for your continuing care. Thank you for allowing us to help in meeting your health care needs. Sincerely, Dr. Valdovinos Interpreting Radiologist [facility] (Normal over 40) Normal [facility] SCREENING W TOMOon 01-31 [facility] SCREENING W RJ * * *Final Report* * * DATE OF EXAM: Feb 01 2024 1:20PM ANGEL 0582 - [facility] SCREENING W RJ / PROCEDURE REASON: Encounter for screening mammogram for malignant neoplasm of breast * * * * Physician Interpretation * * * * RESULT: #[id number] - [facility] SCREENING W RJ BILATERAL DIGITAL SCREENING [...] to exam dated: 08/13/2020 mammogram - [facility]. The breasts are heterogeneously dense, which may obscure small masses. Bilateral breast implants are stable. No significant masses, calcifications, or other findings are seen in either breast. There has been no significant interval change. IMPRESSION: NEGATIVE There is no mammographic evidence of malignancy. A 1 year screening mammogram is recommended. Arin Valdovinos M.D., jr/jacinda:02/05/2024 06:25:39 Filler Shredder Machine(s): Carolin Panda [facility] letter sent: Normal over 40 Mammogram BI-RADS: [...] Health, Family Medicine, and Medical/Surgical Oncology, the [facility] has carefully reviewed the data and [...] their providers when to stop screening mammograms. Pharmacy Messenger: Jacinda Transcribe Date/Time: Feb 01 2024 12:55P Dictated by: ARIN VALDOVINOS MD This examination was interpreted and the report reviewed and electronically signed by: ARIN VALDOVINOS MD on Feb 05 2024 6:25AM EST [id number] Normal [facility] Margi 01-21-2024 GARCÍA Telephone (RDXWS) DO OLSON ([id number]) 1980 F Date Time Provider Department 01/21/24 ROBYN WARNER RDXWS During your visit today, we recorded the following information about you: Veronica Duff, Mammo Tech 01/21/2024 7:55 AM Signed Could we have a mammorgram order? Pt has appt with us 01/31, Thanks a million Liliam Wong RN 01/21/2024 9:18 AM Signed Please file new Mamm with RJ order. Unable to link the order placed on 11/23/23. Liliam Wong RN Allergies As of Date: 01/21/2024 (No Known Allergies) Date Reviewed: 12/26/2023 Reviewed by: Robyn Warner APRN.PRINTER ASSISTANT - Fully Assessed Reason for Visit: Orders [681] Primary Visit Diagnosis:Encounter for screening mammogram for malignant neoplasm of breast [Z12.31] Order(s):[facility] SCREENING W RJ [[id number]] Order #: [id number] FUTURE Prescriptions as of 01/21/2024 - topiramate [...] Status:Closed by LILIAM WONG on 01/21/24 [facility] Basophil percentageOrdered B y: Jesus Manuel Burris on 09-26-2023 Testosterone [Mass/Vol] 3 ng/dL 4-[address] [facility] Free testosterone percentage Ordered By: Jesus Manuel Burris on 09-26-2023 Testosterone Free/Testosterone.tota l [Mass fraction] 1.53 % 0.50-2.[address] [facility] No Panel InformationOrdered By: Jesus Manuel Burris on 09-26-2023 Estradiol (E2) Level 72.9 pg/mL [facility] Comment on above: NORMAL REFERENCE RAN [...] ESTRADIOL CONCENTRATION. Follicle Stimulating Hormone 4.8 mIU/mL [facility] Comment on above: NORMAL REFERENCE RAN GES FEMALE FOLLICULAR 2.3 - 12.6 mIU/mL MID-CYCLE PEAK 5.2 - 17.5 mIU/mL LUTEAL 1.7 - 12.9 mIU/mL POST-MENOPAUSAL ON MHT 5.9 - 72.8 mIU/mL NOT ON MHT 12.7 - 132.2 mlU/mL MALE 0.7 - 10.8 mIU/mL Luteinizing Hormone 4.0 mIU/mL [facility] Comment on above: NORMAL REFERENCE RAN GES FEMALE FOLLICULAR 1.9 - 26.2 mIU/mL MID-CYCLE PEAK 22.8 - 76.1 mIU/mL LUTEAL 0.6 - 16.6 mIU/mL POST-MENOPAUSAL ON MHT 1.1 - 52.4 mIU/mL NOT ON MHT 8.6 - 61.8 mIU/mL MALE 1.2 - 10.6 mIU/mL Serum or plasma progesterone measurement (mass/volume)Ordered By: Jesus Manuel Burris on 09-26-2023 Progesterone [Mass/Vol] 8.61 ng/mL See Comment [facility] Comment on above: Progesterone Referen ce Table: [...] hormone binding globulin [Moles/Vol] 93.1 nmol/L 24.6-122.[address] [facility] Comment on above: Performed at: - [address] [id number] Director: Jordan Duncan PhD, Phone: [phone] at: - [facility] [address] [id number] Director: Daisha Fatima MD, Phone: [phone] Serum or plasma testosterone free measurement (mass/volume)Ordered By: Jesus Manuel Burris on 09-26-2023 Testosterone Free [Mass/Vol] 0.05 ng/dL 0.10-0.[address] [facility] Whole blood hemoglobin A1c/t otal hemoglobin ratio (mass fraction)Ordered By: Jesus Manuel Burris on 09-26-2023 HbA1c (Bld) [Mass fraction] 5.0 % 3.8-5.[address] [facility] Comment on above: Normal < 5.7 % Predi abetic 5.7 - 6.4 % Diabetic >or= 6.5 % Please note range changes. Anaerobic cultureOrdered By: Brenton Gifford on 03-19-2023 Bacteria identified Anaer cx Nom (Unsp spec) No growth in [address] [facility] Bacteria identified Cx Nom ( Wound)Ordered By: Brenton Gifford on 03-19-2023 Wound Culture Streptococcus parasanguinis [facility] Gram stain for investigation of transfusion reactionOrdered By: Brenton Gifford on 03-19-2023 Microscopic observation Gram stain Nom (Unsp spec) [facility] Absolute lymphocyte countOrd ered By: Kartik Padgett on 02-12-2023 Lymphocytes Auto (Unsp spec) [#/Vol] 1.93 10*3/uL 0.83-4.[address] [facility] Basophil percentageOrdered B y: Kartik Padgett on 02-12-2023 Basophils/100 WBC (Bld) 0.9 % 0-[address] [facility] Bilirubin [Mass/Vol] 0.40 mg/dL 0.20-1.00 [facility] Comment on above: For patients on eltr ombopag therapy, use of Dimension [place] TBIL is not recommended. Chloride [Moles/Vol] 109 mmol/L 98-107 [facility] Cholesterol [Mass/Vol] 191 mg/dL <200 [facility] Comment on above: <200 mg/dL Desirable 200-240 mg/dL Borderline >240 mg/dL High Risk Eosinophils/100 WBC (Bld) 2.4 % 0-[address] [facility] Glucose [Mass/Vol] 83 mg/dL 74-106 [facility] Neutrophils (Bld) [#/Vol] 3.2 10*3/uL 2.0-7.[address] [facility] Neutrophils/100 WBC (Bld) 55.0 % 47-[address] [facility] Potassium [Moles/Vol] 3.7 mmol/L 3.5-5.1 [facility] Protein [Mass/Vol] 7.4 g/dL 6.4-8.2 [facility] Sodium [Moles/Vol] 140 mmol/L 136-145 [facility] Triglyceride [Mass/Vol] 62 mg/dL <[address] [facility] Comment on above: The drugs N-Acetylcy steine and Metamizole may falsely depress this assay.Serum Triglycerides Reference Interval Normal <150 mg/dL Borderline high 150 - 199 mg/dL High 200 - 499 mg/dL Very High > or = 500 mg/dL WBC (Bld) [#/Vol] 5.8 10*3/uL 4.4-11.0 [facility] Blood erythrocytes count (nu mber/volume)Ordered By: Kartik Padgett on 02-12-2023 RBC (Bld) [#/Vol] 4.44 10*6/uL 4.2-5.4 [facility] Blood hemoglobin measurement (mass/volume)Ordered By: Kartik Padgett on 02-12-2023 Hemoglobin (Bld) [Mass/Vol] 13.2 g/dL 12.0-15.[address] [facility] Blood lymphocytes/100 leukoc ytesOrdered By: Kartik Padgett on 02-12-2023 Lymphocytes/100 WBC (Bld) 33.5 % 19-[address] [facility] Blood monocytes/100 leukocyt esOrdered By: Kartik Padgett on 02-12-2023 Monocytes/100 WBC (Bld) 8.0 % 0-[address] [facility] Blood platelet mean volumeOr dered By: Kartik Padgett on 02-12-2023 Platelet mean volume (Bld) [Entitic vol] 9.1 fL 6.2-12.[address] [facility] Determination of erythrocyte mean corpuscular volume (MCV)Ordered By: Kartik Padgett on 02-12-2023 MCV (RBC) [Entitic vol] 89.9 fL 81-[address] [facility] Hematocrit Auto (Bld) [Volum e fraction]Ordered By: Kartik Padgett on 02-12-2023 Hematocrit (Bld) [Volume fraction] 39.9 % 37-[address] [facility] Laboratory - Chemistry and C hemistry - challengeOrdered By: Kartik Padgett on 02-12-2023 ALP [Catalytic activity/Vol] 69 U/L 45-[address] [facility] ALT [Catalytic activity/Vol] 19 U/L 13-[address] [facility] CO2 [Moles/Vol] 30.0 mmol/L 21.0-32.[address] [facility] Cobalamin (Vitamin B12) [Mass/Vol] 662 pg/mL 211-[address] [facility] Globulin (S) [Mass/Vol] 3.3 g/dL 2.2-4.[address] [facility] Urea nitrogen/Creatinine [Mass ratio] 18.9 mg/mg 10-[address] [facility] Laboratory - Hematology and Cell countsOrdered By: Kartik Padgett on 02-12-2023 Erythrocyte distribution width (RBC) [Entitic vol] 39.4 fL 35.1-43.[address] [facility] Erythrocyte distribution width (RBC) [Ratio] 12.0 % 11.6-14.[address] [facility] Immature granulocytes/100 WBC (Bld) 0.200 % 0.0-0.[address] [facility] Comment on above: IG% - Immature Granu locytes (promyelocytes, myelocytes and metamyelocytes) > 1% indicates that a LEFT SHIFT is Present. MCH (RBC) [Entitic mass] 29.7 pg 27.0-32.[address] [facility] Nucleated RBC/100 WBC (Bld) [Ratio] 0 % 0-[address] [facility] MCHC Auto (RBC) [Mass/Vol]Or dered By: Kartik Padgett on 02-12-2023 MCHC (RBC) [Mass/Vol] 33.1 g/dL 32-36 [facility] No Panel InformationOrdered By: Kartik Padgett on 02-12-2023 Estimated GFR (MDRD) Amer 102 mL/min >[address] [facility] Comment on above: GFR Calc Estimated GFR (MDRD) Non-Af Amer 84 mL/min >[address] [facility] Comment on above: Non- GFR Calc Thyroid Stimulating Hormone (TSH) 0.88 uIU/mL 0.358-3.[address] [facility] Vitamin D 25-Hydroxy 37.1 ng/mL [facility] Comment on above: Vitamin D 25(OH) Sta tus Range Deficiency <20 ng/mL (50nmol/L) Insufficiency 20 - 30 ng/mL (50 - 75 nmol/L) Sufficiency 30 - 100 ng/mL (75 - 250 nmol/L) Toxicity >100 ng/mL (>250 nmol/L) Platelets bldOrdered By: Riana Padgett on 02-12-2023 Platelets (Bld) [#/Vol] 317 10*3/uL 150-[address] [facility] Serum or plasma albumin tyrell urement (mass/volume)Ordered By: Kartik Padgett on 02-12-2023 Albumin [Mass/Vol] 4.1 g/dL 3.2-5.0 [facility] Serum or plasma albumin/glob ulin mass ratioOrdered By: Kartik Padgett on 02-12-2023 Albumin/Globulin [Mass ratio] 1.2 {ratio} 0.9-2.[address] [facility] Serum or plasma calcium tyrell urement (mass/volume)Ordered By: Kartik Padgett on 02-12-2023 Calcium [Mass/Vol] 8.8 mg/dL 8.5-10.1 [facility] Serum or plasma cholesterol in HDL measurement (mass/volume)Ordered By: Kartik Padgett on 02-12-2023 Cholesterol in HDL [Mass/Vol] 64 mg/dL >[address] [facility] Comment on above: The drugs N-Acetylcy steine and Metamizole may falsely depress this assay. Reference Range HDL <40 mg/dL Low HDL Cholesterol HDL >or= 60 mg/dL High HDL Cholesterol Serum or plasma cholesterol in VLDL measurement (mass/volume)Ordered By: Kartik Padgett on 02-12-2023 Cholesterol in VLDL [Mass/Vol] 12 mg/dL 5-[address] [facility] Serum or plasma creatinine m easurement (mass/volume)Ordered By: Kartik Padgett on 02-12-2023 Creatinine [Mass/Vol] 0.79 mg/dL 0.55-1.02 [facility] Comment on above: The validity of the calculated GFR & GFRAA in patients over 70 years has not been determined. Clinical correlation is essential. Serum or plasma low density lipoprotein (LDL) cholesterol measurement (mass/volume)Ordered By: Kartik Padgett on 02-12-2023 Cholesterol in LDL [Mass/Vol] 115 mg/dL 0-[address] [facility] Serum or plasma urea nitroge n measurement (mass/volume)Ordered By: Kartik Padgett on 02-12-2023 Urea nitrogen [Mass/Vol] 15 mg/dL 7-[address] [facility] Thin prep Papanicolaou smear with manual screeningOrdered By: Kartik Padgett on 02-12-2023 Thin prep Papanicolaou smear with manual screening 11 U/L 15-[address] [facility] Thin prep Papanicolaou smear with manual screening 1 5-[address] [facility] Absolute lymphocyte counton 11-29-2021 Lymphocytes Auto (Unsp spec) [#/Vol] 1.85 10*3/uL 0.83-4.[address] [facility] Work Phone: Basophil percentageon 2021 Basophils/100 WBC (Bld) 1.1 % 0-[address] [facility] Work Phone: [phone] Bilirubin [Mass/Vol] 0.50 mg/dL 0.20-1.00 [facility] Work Phone: Comment on above: For patients on eltr ombopag therapy, use of Dimension [place] TBIL is not recommended. Chloride [Moles/Vol] 107 mmol/L 98-107 [facility] Work Phone: Cholesterol [Mass/Vol] 181 mg/dL <200 [facility] Work Phone: Comment on above: <200 mg/dL Desirable 200-240 mg/dL Borderline >240 mg/dL High Risk Eosinophils/100 WBC (Bld) 2.5 % 0-[address] [facility] Work Phone: Glucose [Mass/Vol] 97 mg/dL 74-106 [facility] Work Phone: Neutrophils (Bld) [#/Vol] 3.2 10*3/uL 2.0-7.[address] [facility] Work Phone: [phone] Neutrophils/100 WBC (Bld) 56.0 % 47-[address] [facility] Work Phone: Potassium [Moles/Vol] 4.2 mmol/L 3.5-5.1 [facility] Work Phone: [phone] Protein [Mass/Vol] 7.0 g/dL 6.4-8.2 [facility] Work Phone: Sodium [Moles/Vol] 139 mmol/L 136-145 [facility] Work Phone: Triglyceride [Mass/Vol] 79 mg/dL <[address] [facility] Work Phone: Comment on above: The drugs N-Acetylcy steine and Metamizole may falsely depress this assay.Serum Triglycerides Reference Interval Normal <150 mg/dL Borderline high 150 - 199 mg/dL High 200 - 499 mg/dL Very High > or = 500 mg/dL WBC (Bld) [#/Vol] 5.7 10*3/uL 4.4-11.0 [facility] Work Phone: Blood erythrocytes count (nu mber/volume)on 11-29-2021 RBC (Bld) [#/Vol] 4.57 10*6/uL 4.2-5.4 [facility] Work Phone: Blood hemoglobin measurement (mass/volume)on 11-29-2021 Hemoglobin (Bld) [Mass/Vol] 13.4 g/dL 12.0-15.[address] [facility] Work Phone: Blood lymphocytes/100 leukoc yteson 11-29-2021 Lymphocytes/100 WBC (Bld) 32.6 % 19-[address] [facility] Work Phone: Blood monocytes/100 leukocyt eson 11-29-2021 Monocytes/100 WBC (Bld) 7.4 % 0-[address] [facility] Work Phone: Blood platelet mean volumeon 11-29-2021 Platelet mean volume (Bld) [Entitic vol] 10.3 fL 6.2-12.[address] [facility] Work Phone: Determination of erythrocyte mean corpuscular volume (MCV)on 11-29-2021 MCV (RBC) [Entitic vol] 91.5 fL 81-[address] [facility] Work Phone: Hematocrit Auto (Bld) [Volum e fraction]on 11-29-2021 Hematocrit (Bld) [Volume fraction] 41.8 % 37-[address] [facility] Work Phone: Laboratory - Chemistry and C hemistry - challengeon 11-29-2021 ALP [Catalytic activity/Vol] 66 U/L 45-[address] [facility] Work Phone: ALT [Catalytic activity/Vol] 26 U/L 13-[address] [facility] Work Phone: CO2 [Moles/Vol] 28.0 mmol/L 21.0-32.[address] [facility] Work Phone: Globulin (S) [Mass/Vol] 3.2 g/dL 2.2-4.[address] [facility] Work Phone: Urea nitrogen/Creatinine [Mass ratio] 14.8 mg/mg 10-[address] [facility] Work Phone: Laboratory - Hematology and Cell countson 11-29-2021 Erythrocyte distribution width (RBC) [Entitic vol] 42.3 fL 35.1-43.[address] [facility] Work Phone: Erythrocyte distribution width (RBC) [Ratio] 12.8 % 11.6-14.[address] [facility] Work Phone: Immature granulocytes/100 WBC (Bld) 0.400 % 0.0-0.[address] [facility] Work Phone: Comment on above: IG% - Immature Granu locytes (promyelocytes, myelocytes and metamyelocytes) > 1% indicates that a LEFT SHIFT is Present. MCH (RBC) [Entitic mass] 29.3 pg 27.0-32.[address] [facility] Work Phone: Nucleated RBC/100 WBC (Bld) [Ratio] 0 % 0-[address] [facility] Work Phone: MCHC Auto (RBC) [Mass/Vol]on 11-29-2021 MCHC (RBC) [Mass/Vol] 32.1 g/dL 32-36 [facility]: No Panel Informationon 11-29 Estimated GFR (MDRD) Amer 100 mL/min >[address] [facility] Work Phone: Comment on above: GFR Calc Estimated GFR (MDRD) Non-Af Amer 83 mL/min >[address] [facility] Work Phone: Comment on above: Non- GFR Calc Platelets bldon 11-29-2021 Platelets (Bld) [#/Vol] 275 10*3/uL 150-[address] [facility] Work Phone: Serum or plasma albumin tyrell urement (mass/volume)on 11-29-2021 Albumin [Mass/Vol] 3.8 g/dL 3.2-5.0 [facility] Work Phone: Serum or plasma albumin/glob ulin mass ratioon 11-29-2021 Albumin/Globulin [Mass ratio] 1.2 {ratio} 0.9-2.[address] [facility] Work Phone: Serum or plasma calcium tyrell urement (mass/volume)on 11-29-2021 Calcium [Mass/Vol] 8.8 mg/dL 8.5-10.1 [facility] Work Phone: Serum or plasma cholesterol in HDL measurement (mass/volume)on 11-29-2021 Cholesterol in HDL [Mass/Vol] 71 mg/dL >[address] [facility] Work Phone: Comment on above: The drugs N-Acetylcy steine and Metamizole may falsely depress this assay. Reference Range HDL <40 mg/dL Low HDL Cholesterol HDL >or= 60 mg/dL High HDL Cholesterol Serum or plasma cholesterol in VLDL measurement (mass/volume)on 11-29-2021 Cholesterol in VLDL [Mass/Vol] 16 mg/dL 5-[address] [facility] Work Phone: Serum or plasma creatinine m easurement (mass/volume)on 11-29-2021 Creatinine [Mass/Vol] 0.81 mg/dL 0.55-1.02 [facility] Work Phone: Comment on above: The validity of the calculated GFR & GFRAA in patients over 70 years has not been determined. Clinical correlation is essential. Serum or plasma low density lipoprotein (LDL) cholesterol measurement (mass/volume)on 11-29-2021 Cholesterol in LDL [Mass/Vol] 94 mg/dL 0-[address] [facility] Work Phone: Serum or plasma urea nitroge n measurement (mass/volume)on 11-29-2021 Urea nitrogen [Mass/Vol] 12 mg/dL 7-[address] [facility] Work Phone: Thin prep Papanicolaou smear with manual screeningon 11-29-2021 Thin prep Papanicolaou smear with manual screening 16 U/L 15-[address] [facility] Work Phone: Thin prep Papanicolaou smear with manual screening 4 5-[address] [facility] Work Phone: Whole blood hemoglobin A1c/t otal hemoglobin ratio (mass fraction)on 11-29-2021 HbA1c (Bld) [Mass fraction] 5.4 % 3.8-5.[address] [facility] Work Phone: Comment on above: Normal < 5.7 % Predi abetic 5.7 - 6.4 % Diabetic >or= 6.5 % Please note range changes. RUBEOon 02-23-2021 Rubeola IgG Ab Negative Normal [facility] ([place]) Comment on above: Result Comment: INTE RPRETATION OF RUBEOLA (MEASLES) IGG BY EIA: Negative Nonreactive (Negative) for anti-Rubeola IgG. Presumed non-immune to measles virus. Positive Reactive (Positive) for anti-Rubeola IgG. Presumed immune to measles virus. Equivocal Repeat testing if still indicated. Performed By: #### H BSAB, RUBIS, VARIS, RUBEO #### [facility] [address] [place] [id number] VARISon 02-22-[address] Positive Normal [facility] ([place]) Comment on above: Result Comment: This immune [...] #### H BSAB, RUBIS, VARIS, RUBEO #### [place] [id number] [place] [address] RUBISon 02-19-[address] Positive Normal Positive [facility] ([place]) Comment on above: Result Comment: This immune status assay detects IgM and/or IgG antibody to Rubella. Interpret results in conjunction with clinical history. POS: Antibody detected; exposure at undetermined recent or distant time. If clinically indicated, order Rubella IGM to rule out recent infection. NEG: No antibody detected. Performed By: #### H DWAYNE FLOYD VARIS, RUBEO #### [address] [address] HBSABon 02-18-2021 Hep B Surf Ab 12.4 mIU/mL Normal >=10.0 [facility] ([place]) Comment on above: Result Comment: 0 to [...] #### H DWAYNE FLOYD VARIS, RUBEO #### [address] [address] SARS-COV-2 ANTIBODY, IGGon 0 01-06-2021 SARS-CoV-2 (COVID-19) IgG IA.rapid Ql (S/P/Bld) Negative Normal Negative [facility] Comment on above: Result Comment: No S ARS-CoV-2 IgG antibodies detected. In infected individuals negative results may occur before IgG seroconversion, or in immunosuppressed patients. Negative results should not be used to exclude active or recent COVID-19. This test was performed under the FDA's Emergency Use Authorization (EUA). Testing was performed using the [employer] CLIA methodology. Fact sheets for this EUA can be found at the following links: For Healthcare Providers: https://www.fda.gov/media/478147/download For Patients: https://www.fda.gov/media/585840/download Performed By: #### 3 2002 #### [facility] [place] [address] Eddi Griffin M.D. [id number] MM BREAST SPECIMENon 021 MM BREAST SPECIMEN [...] BIRADS: Code ZW - Awaiting further pathology. [facility] Workstation ID: [id number] Dictated by: TENA GAN on SunOctober 05, 2020 2:04:26 PM EDT Transcribed by: ANSELMO KIM on SunOctober 05, 2020 2:10:23 PM EDT Finalized by: TENA GAN on SunOctober 05, 2020 2:28:33 PM EDT Normal [facility] COVID-19, MOLECULARon 2020 SARS-CoV-2 (COVID-19) RNA GIOVANNY+probe Ql (Unsp spec) Not detected Normal Not Detected [facility] Comment on above: Order Comment: : [...] at the following links: For Healthcare Providers: https://www.fda.gov/media/815211/download For Patients: https://www.fda.gov/media/401990/download Performed By: #### L [id number] #### [facility] [address] [place] [address] Eddi Griffin M.D. [id number] MM FOLLOW UP POST CLIP PLACE [place] 08-27-2020 MM FOLLOW UP POST CLIP PLACEMENT [...] SunAug 27, 2020 2:10:22 PM EDT Normal [facility] Otheron 08-27-2020 1. Status post right breast biopsy with pathology pending. Workstation ID: [id number] [facility] EXAMINATION: US REUBEN ST RIGHT LIMITED; MM [...] to obscuration by implant. No immediate complication. [facility] Interface, Rad In Fu ji Speechq - [...] biopsy with pathology pending. Workstation ID: [id number] [facility] US BREAST BIOPSY RIGHTon US BREAST BIOPSY [...] on SunAug 27, 2020 2:10:22 PM EDT [facility] Comment on above: Order Comment: Injur [...] SunAug 27, 2020 2:10:22 PM EDT Normal [place] COMPARISON IMPORTon 08-25 This order has been auto-finalized and does not contain a result. [facility] US COMPARISON IMPORTon 08-25 This order has been auto-finalized and does not contain a result. [facility] MR BREAST BILATERAL WITH AND WITHOUT CONTRASTon [...] KNOWN BIOPSY PROVEN MALIGNANCY. Workstation ID: [id number] [facility] EXAMINATION: MR BREAST BILATERAL WITH AND WITHOUT [...] Dotarem intravenously administered in a single dosage. [employer] CAD utilized in the interpretation of this [...] along the internal mammary lymph node chains. [facility], Rad In Fu ji Speechq - 08/24/2020 [...] Dotarem intravenously administered in a single dosage. [employer] CAD utilized in the interpretation of this [...] KNOWN BIOPSY PROVEN MALIGNANCY. Workstation ID: [id number] [facility] MR BREAST BILATERAL WITH AND WITHOUT CONTRAST [...] Dotarem intravenously administered in a single dosage. [employer] CAD utilized in the interpretation of this [...] SunAug 24, 2020 2:00:29 PM EDT Abnormal [facility] Comment on above: Order Comment: Injur y/Trauma or Illness?:Illness/Other How long have you had these symptoms (acute/chronic)?:Acute Reason for exam?:Abnormal Mammo @ [facility] x 1 week ago / was a routine scheduled exam not having any problems Type of Exam?:Initial Additional signs and symptoms?:na DIGITAL DIAG MAMM BILAT WITH TOMOon 08-19-2020 DIGITAL DIAG MAMM BILAT WITH RJ Patient Name: DO OLSON STUDY: Digital diagnostic mammogram bilateral with rj; 08/19/2020 9:05 am; 08/19/2020 8:55 am ACCESSION NUMBER(S): [id number]; [id number] ORDERING CLINICIAN: ANA MARIA BAKER INDICATION: Abnormal [...] Follow-up. Electronically signed by: ALEX VARGAS MD [facility] BREAST ULTRASOUNDon 08-19-2020 LIMITED BREAST ULTRASOUND Patient Name: DO OLSON STUDY: Digital diagnostic mammogram bilateral with rj; 08/19/2020 9:05 am; 08/19/2020 8:55 am ACCESSION NUMBER(S): [id number]; [id number] ORDERING CLINICIAN: ANA MARIA BAKER INDICATION: Abnormal [...] Follow-up. Electronically signed by: ALEX VARGAS MD [facility] XR SHOULDER LEFT 2+ VIEWS (S [...] SunJul 20, 2020 6:48:[address] [facility] Comment on above: Order Comment: Injur y/Trauma or Illness?:Illness/Other How long have you had these symptoms (acute/chronic)?:Acute Reason for exam?:no injury, left shoulder pain and difficulty abducting left arm. limited range of motion History of cancer?:u Surgeries, chemotherapy, or radiation?:u Type of Exam?:Initial Additional signs and symptoms?:no COVID-19, MOLECULARon 2020 SARS-CoV-2 (COVID-19) RNA GIOVANNY+probe Ql (Unsp spec) Not detected Normal Not Detected [facility] Comment on above: Order Comment: : [...] at the following links: For Healthcare Providers: https://www.fda.gov/media/876940/download For Patients: https://www.fda.gov/media/539930/download Performed By: #### L [id number] #### [facility] [address] [place] [address] Eddi Griffin M.D. [id number] COVID-19, MOLECULARon 2019 SARS-CoV-2 (COVID-19) RNA GIOVANNY+probe Ql (Unsp spec) Not detected Normal Not Detected [facility] Comment on above: Result Comment: This [...] at the following links: For Healthcare Providers: https://www.fda.gov/media/171242/download For Patients: https://www.fda.gov/media/218514/download Performed By: #### L [id number] #### [facility] [address] [place] [address] Eddi Griffin M.D. [id number] Free T4on 10-05-2017 T4 free mass conc 0.93 ng/dL Normal 0.58-1.64 [facility] Comment on above: Performed By: #### 2 [id number] #### [facility] [address] [place] [address] TSHon 10-05-2017 Thyrotropin Qn 1.80 mIU/m Normal 0.30-5.60 [facility] Comment on above: Performed By: #### 2 [id number] #### [facility] [address] [place] [address] Vital Signs Date Time Vital Sign Value Performing Clinician Facility 12-30-2024 08:10-0400 Body temperature 97.3 [degF] Kartik Padgett [employer] Work Phone: [facility] 12-30-2024 08:10-0400 Diastolic blood pressure 78 mm[Hg] Kartik Padgett [employer] Work Phone: [facility] 12-30-2024 08:10-0400 Heart rate 91 /min Kartik Padgett [employer] Work Phone: [facility] 12-30-2024 08:10-0400 Respiratory rate 16 /min Kartik Padgett [employer] Work Phone: [facility] 12-30-2024 08:10-0400 SaO2% (BldA) [Mass fraction] 95 % Kartik Padgett [employer] Work Phone: [facility] 12-30-2024 08:10-0400 Systolic blood pressure 118 mm[Hg] Kartik Padgett [employer] Work Phone: [facility] 12-30-2024 06:27-0400 Body height 170.18 cm Kartik Padgett [employer] Work Phone: [facility] 12-30-2024 06:27-0400 Body mass index (BMI) [Ratio] 27.1 kg/m2 Kartik Padgett [employer] Work Phone: [facility] 12-30-2024 06:27-0400 Body weight 78.5 kg Katrik Padgett [employer] Work Phone: [facility] 12-19-2024 07:03-0400 Body mass index (BMI) [Ratio] 25.37 kg/m2 Robyn Warner APRN.PRINTER ASSISTANT Work Phone: [facility] 12-19-2024 07:03-0400 Body weight 73.48 kg Robyn Warner APRN.PRINTER ASSISTANT Work Phone: [facility] 12-19-2024 07:03-0400 Diastolic blood pressure 76 mm[Hg] Robyn Warner APRN.PRINTER ASSISTANT Work Phone: [facility] 12-19-2024 07:03-0400 Heart rate 92 /min Robyn Warner APRN.PRINTER ASSISTANT Work Phone: [facility] 12-19-2024 07:03-0400 SaO2% (BldA) [Mass fraction] 98 % Robyn Warner APRN.PRINTER ASSISTANT Work Phone: [facility] 12-19-2024 07:03-0400 Systolic blood pressure 108 mm[Hg] Robyn Warner APRN.PRINTER ASSISTANT Work Phone: [facility] 09-25-2024 15:24-0400 Body mass index (BMI) [Ratio] 25.37 kg/m2 Robyn Warner APRN.PRINTER ASSISTANT Work Phone: [facility] 09-25-2024 15:24-0400 Body weight 73.48 kg Robyn Warner APRN.PRINTER ASSISTANT Work Phone: [facility] 09-25-2024 15:24-0400 Diastolic blood pressure 76 mm[Hg] Robyn Warner APRN.PRINTER ASSISTANT Work Phone: [facility] 09-25-2024 15:24-0400 Heart rate 65 /min Robyn Warner APRN.PRINTER ASSISTANT Work Phone: [facility] 09-25-2024 15:24-0400 SaO2% (BldA) [Mass fraction] 100 % Robyn Warner APRN.PRINTER ASSISTANT Work Phone: [facility] 09-25-2024 15:24-0400 Systolic blood pressure 116 mm[Hg] Robyn Warner APRN.PRINTER ASSISTANT Work Phone: [facility] 08-07-2024 15:20-0400 Body height 170.18 cm Kartik Padgett NP-C Work Phone: [facility] 07-03-2024 14:37-0500 Body mass index (BMI) [Ratio] 24.75 kg/m2 Robyn Warner APRN.PRINTER ASSISTANT Work Phone: [facility] 07-03-2024 14:37-0500 Body weight 71.67 kg Robyn Warner APRN.PRINTER ASSISTANT Work Phone: [facility] 07-03-2024 14:37-0500 Diastolic blood pressure 77 mm[Hg] Robyn Warner APRN.PRINTER ASSISTANT Work Phone: [facility] 07-03-2024 14:37-0500 Heart rate 95 /min Robyn Warner APRN.PRINTER ASSISTANT Work Phone: [facility] 07-03-2024 14:37-0500 SaO2% (BldA) [Mass fraction] 100 % Robyn Warner APRN.PRINTER ASSISTANT Work Phone: [facility] 07-03-2024 14:37-0500 Systolic blood pressure 113 mm[Hg] Robyn Warner APRN.PRINTER ASSISTANT Work Phone: [facility] 06-10-2024 08:15-0500 Body temperature 97.2 [degF] Kartik Padgett NP-C Work Phone: [phone](096)[phone] [place] [address] 06-10-2024 08:15-0500 Diastolic blood pressure 50 mm[Hg] Kartik Hdezder [employer] Work Phone: 7(082)873-247088 [place] [address] 06-10-2024 08:15-0500 Heart rate 73 /min Kartik Padgett [employer] Work Phone: 7(558)[phone] [place] [address] 06-10-2024 08:15-0500 Respiratory rate 16 /min Kartik Hdezder [employer] Work Phone: 3(728)[phone] [place] [address] 06-10-2024 08:15-0500 SaO2% (BldA) [Mass fraction] 100 % Kartik Padgett [employer] Work Phone: 4(801)880-776588 [place] [address] 06-10-2024 08:15-0500 Systolic blood pressure 101 mm[Hg] Kartik Padgett [employer] Work Phone: 0(374)522-984088 [place] [address] 06-10-2024 06:13-0500 Body mass index (BMI) [Ratio] 25 kg/m2 Kartik Hdezder [employer] Work Phone: 4(396)[phone] [place] [address] 06-10-2024 06:13-0500 Body weight 72.3 kg Kartik Padgett [employer] Work Phone: 9([phone])873-370088 [place] [address] 04-09-2024 11:47-0500 Body mass index (BMI) [Ratio] 24.43 kg/m2 Robyn Warner APRN.PRINTER ASSISTANT Work Phone: [facility] 04-09-2024 11:47-0500 Body weight 70.76 kg Robyn Warner APRN.PRINTER ASSISTANT Work Phone: [facility] 04-09-2024 11:47-0500 Diastolic blood pressure 76 mm[Hg] Robyn Warner APRN.PRINTER ASSISTANT Work Phone: [facility] 04-09-2024 11:47-0500 Heart rate 85 /min Robyn Warner APRN.PRINTER ASSISTANT Work Phone: [facility] 04-09-2024 11:47-0500 SaO2% (BldA) [Mass fraction] 97 % Robyn Warner APRN.PRINTER ASSISTANT Work Phone: [facility] 04-09-2024 11:47-0500 Systolic blood pressure 122 mm[Hg] Robyn Warner APRN.PRINTER ASSISTANT Work Phone: [facility] 02-13-2024 07:16-0400 Body mass index (BMI) [Ratio] 25.53 kg/m2 Robyn Warner APRN.PRINTER ASSISTANT Work Phone: [facility] 02-13-2024 07:16-0400 Body weight 73.94 kg Robyn Warner APRN.PRINTER ASSISTANT Work Phone: [facility] 02-13-2024 07:16-0400 Diastolic blood pressure 71 mm[Hg] Robyn Warner APRN.PRINTER ASSISTANT Work Phone: [facility] 02-13-2024 07:16-0400 Heart rate 92 /min Robyn Warner APRN.PRINTER ASSISTANT Work Phone: [facility] 02-13-2024 07:16-0400 Systolic blood pressure 110 mm[Hg] Robyn Warner APRN.PRINTER ASSISTANT Work Phone: [facility] 12-26-2023 06:58-0400 Body height 170.2 cm Robyn Warner APRN.PRINTER ASSISTANT Work Phone: [facility] 12-26-2023 06:58-0400 Body mass index (BMI) [Ratio] 25.18 kg/m2 Robyn Warner APRN.PRINTER ASSISTANT Work Phone: [facility] 12-26-2023 06:58-0400 Body weight 72.94 kg Robyn Warner APRN.PRINTER ASSISTANT Work Phone: [facility] 12-26-2023 06:58-0400 Diastolic blood pressure 62 mm[Hg] Robyn Warner APRN.PRINTER ASSISTANT Work Phone: [facility] 12-26-2023 06:58-0400 Heart rate 73 /min Robyn Warner APRN.PRINTER ASSISTANT Work Phone: [facility] 12-26-2023 06:58-0400 SaO2% (BldA) [Mass fraction] 99 % Robyn Warner BRIM STIFFENER.PRINTER ASSISTANT Work Phone: [facility] 12-26-2023 06:58-0400 Systolic blood pressure 110 mm[Hg] Robyn Warner APRN.PRINTER ASSISTANT Work Phone: [facility] 11-23-2023 07:02-0400 Body height 170.2 cm Robyn Warner APRN.PRINTER ASSISTANT Work Phone: [facility] 11-23-2023 07:02-0400 Body mass index (BMI) [Ratio] 25.22 kg/m2 Robyn Warner BRIM STIFFENER.PRINTER ASSISTANT Work Phone: [facility] 11-23-2023 07:02-0400 Body weight 73.03 kg Robyn Warner BRIM STIFFENER.PRINTER ASSISTANT Work Phone: [facility] 11-23-2023 07:02-0400 Diastolic blood pressure 62 mm[Hg] Robyn Willoughbyhrie BRIM STIFFENER.PRINTER ASSISTANT Work Phone: [facility] 11-23-2023 07:02-0400 Systolic blood pressure 112 mm[Hg] Robyn Warner BRIM STIFFENER.PRINTER ASSISTANT Work Phone: [facility] 10-02-2023 11:33-0400 Body mass index (BMI) [Ratio] 25.94 kg/m2 Robyn Willoughbyhrie BRIM STIFFENER.PRINTER ASSISTANT Work Phone: [facility] 10-02-2023 11:33-0400 Body weight 75.12 kg Robyn Warner BRIM STIFFENER.PRINTER ASSISTANT Work Phone: [facility] 10-02-2023 11:33-0400 Diastolic blood pressure 64 mm[Hg] Robyn Willoughbyhrie BRIM STIFFENER.PRINTER ASSISTANT Work Phone: [facility] 10-02-2023 11:33-0400 Systolic blood pressure 100 mm[Hg] Robyn Willoughbyhrie [employer]IM STIFFENER.PRINTER ASSISTANT Work Phone: [facility] 03-19-2023 11:53-0400 Body mass index (BMI) [Ratio] 28 kg/m2 KYRA Padgett [facility] Work Phone: [facility] 03-19-2023 11:53-0400 Body temperature 97.2 [degF] [employer] Kartik Padgett [facility] Work Phone: 3([phone] [place] [address] 03-19-2023 11:53-0400 Body weight 81.3 kg [employer] Kartik Padgett [facility] Work Phone: 1(030)[phone] [place] [address] 03-19-2023 11:53-0400 Diastolic blood pressure 79 mm[Hg] [employer] Kartik Padgett [facility] Work Phone: 1(368)616-149088 [place] [address] 03-19-2023 11:53-0400 Heart rate 81 /min [employer] Kartik Padgett [facility] Work Phone: [phone] [place] [address] 03-19-2023 11:53-0400 Respiratory rate 16 /min [employer] [employer] Kartik Padgett VSC Work Phone: 3([phone] [place] [address] 03-19-2023 11:53-0400 SaO2% (BldA) [Mass fraction] 98 % [employer] [employer] Kartik Padgett VSC Work Phone: 1(578)[phone] [place] [address] 03-19-2023 11:53-0400 Systolic blood pressure 119 mm[Hg] [facility] Kartik Padgett VSC Work Phone: 8(535)497-268888 [place] [address] 03-18-2023 10:56-0400 Body height 170.18 cm [facility] Kartik Padgett [facility] Work Phone: 3([phone])[phone] [place] [address] 03-18-2023 10:56-0400 Body mass index (BMI) [Ratio] 27.3 kg/m2 [facility] Kartik Padgett VSC Work Phone: 2(501)876-664988 [place] [address] 03-18-2023 10:56-0400 Body temperature 97 [degF] [facility] [employer] Kartik Padgett [facility]SC Work Phone: 3(003)[phone] [place] [address] 03-18-2023 10:56-0400 Body weight 79.37 kg [employer] [employer] Kartik Padgett [facility] Work Phone: 8([phone])405-493888 [place] [address] 03-18-2023 10:56-0400 Diastolic blood pressure 89 mm[Hg] [facility] [employer] Kartik Padgett VSC Work Phone: 4(027)394-299988 [place] [address] 03-18-2023 10:56-0400 Heart rate 94 /min [employer] Kartik Padgett VS Work Phone: [facility] 03-18-2023 10:56-0400 Respiratory rate 16 /min [employer] Kartik Padgett [facility] Work Phone: [facility] 03-18-2023 10:56-0400 SaO2% (BldA) [Mass fraction] 99 % [employer] Kartik Padgett [facility] Work Phone: [facility] 03-18-2023 10:56-0400 Systolic blood pressure 131 mm[Hg] [facility] [employer] Kartik Padgett [facility] Work Phone: [facility] 10-17-2022 15:33-0400 Body height [facility].18 cm [facility] 10-17-2022 15:33-0400 Body mass index (BMI) [Ratio] 29 kg/m2 [facility] 10-17-2022 15:33-0400 Body temperature 98.1 [degF] [facility] 10-17-2022 15:33-0400 Body weight 83.[address] [facility] 10-17-2022 15:33-0400 Diastolic blood pressure 70 mm[Hg] [facility] 10-17-2022 15:33-0400 Heart rate 90 /min [facility] 10-17-2022 15:33-0400 Respiratory rate 16 /min gloria Martines [facility] 10-17-2022 15:33-0400 SaO2% (BldA) [Mass fraction] 96 % gloria [facility] 10-17-2022 15:33-0400 Systolic blood pressure 90 mm[Hg] [facility] 05-03-2022 07:24-0500 Body weight 92.08 kg Robyn Warner APRN.CNP Work Phone: [facility] 05-03-2022 07:24-0500 Diastolic blood pressure 72 mm[Hg] Robyn Warner APRN.PRINTER ASSISTANT Work Phone: [facility] 05-03-2022 07:24-0500 Systolic blood pressure 118 mm[Hg] Robyn Warner APRN.PRINTER ASSISTANT Work Phone: [facility] 04-18-2022 15:36-0500 Body height 170.2 cm Robyn Warner APRN.PRINTER ASSISTANT Work Phone: [facility] 04-18-2022 15:36-0500 Body weight 91.54 kg Robyn Warner APRN.PRINTER ASSISTANT Work Phone: [facility] 04-18-2022 15:36-0500 Diastolic blood pressure 70 mm[Hg] Robyn Warner APRN.PRINTER ASSISTANT Work Phone: [facility] 04-18-2022 15:36-0500 Systolic blood pressure 128 mm[Hg] Robyn Warner APRN.PRINTER ASSISTANT Work Phone: [facility] 02-11-2022 17:11-0400 Diastolic blood pressure 73 mm[Hg] No Primary Care Physician [facility] Work Phone: 02-11-2022 17:11-0400 Heart rate 74 /min No Primary Care Physician [facility] Work Phone: 02-11-2022 17:11-0400 Respiratory rate 17 /min No Primary Care Physician [facility] Work Phone: 02-11-2022 17:11-0400 SaO2% (BldA) [Mass fraction] 99 % No Primary Care Physician [facility] Work Phone: 02-11-2022 17:11-0400 Systolic blood pressure 98 mm[Hg] No Primary Care Physician [facility] Work Phone: 02-11-2022 15:12-0400 Body height 170.18 cm No Primary Care Physician [facility] Work Phone: 02-11-2022 15:12-0400 Body mass index (BMI) [Ratio] 29.7 kg/m2 No Primary Care Physician [facility] Work Phone: 02-11-2022 15:12-0400 Body temperature 97.3 [degF] No Primary Care Physician [facility] Work Phone: 02-11-2022 15:12-0400 Body weight 86.18 kg No Primary Care Physician [facility] Work Phone: 12-23-2021 08:07-0400 Body height 170.18 cm No Primary Care Physician [facility] Work Phone: 12-23-2021 08:07-0400 Body mass index (BMI) [Ratio] 30.2 kg/m2 No Primary Care Physician [facility] Work Phone: 12-23-2021 08:07-0400 Body weight 87.54 kg No Primary Care Physician [facility] Work Phone: 12-09-2021 09:29-0400 Body mass index (BMI) [Ratio] 30.2 kg/m2 No Primary Care Physician [facility] Work Phone: 12-09-2021 09:29-0400 Body temperature 96.3 [degF] No Primary Care Physician [facility] Work Phone: 12-09-2021 09:29-0400 Body weight 87.54 kg No Primary Care Physician [facility] Work Phone: 12-09-2021 09:29-0400 Diastolic blood pressure 60 mm[Hg] No Primary Care Physician [facility] Work Phone: 12-09-2021 09:29-0400 Heart rate 103 /min No Primary Care Physician [facility] Work Phone: 12-09-2021 09:29-0400 Respiratory rate 18 /min No Primary Care Physician [facility] Work Phone: 12-09-2021 09:29-0400 SaO2% (BldA) [Mass fraction] 99 % No Primary Care Physician [facility] Work Phone: 12-09-2021 09:29-0400 Systolic blood pressure 114 mm[Hg] No Primary Care Physician [facility] Work Phone: 11-29-2021 08:14-0400 Body height 170.18 cm No Primary Care Physician [facility] Work Phone: 11-29-2021 08:14-0400 Body mass index (BMI) [Ratio] 30.5 kg/m2 No Primary Care Physician [facility] Work Phone: 11-29-2021 08:14-0400 Body temperature 97.6 [degF] No Primary Care Physician [facility] Work Phone: 11-29-2021 08:14-0400 Body weight 88.45 kg No Primary Care Physician [facility] Work Phone: 11-29-2021 08:14-0400 Diastolic blood pressure 78 mm[Hg] No Primary Care Physician [facility] Work Phone: 11-29-2021 08:14-0400 Heart rate 83 /min No Primary Care Physician [facility] Work Phone: 11-29-2021 08:14-0400 Respiratory rate 14 /min No Primary Care Physician [facility] Work Phone: 11-29-2021 08:14-0400 SaO2% (BldA) [Mass fraction] 98 % No Primary Care Physician [facility] Work Phone: 11-29-2021 08:14-0400 Systolic blood pressure 130 mm[Hg] No Primary Care Physician [facility] Work Phone: 11-23-2021 14:46-0400 Body temperature 98 [degF] No Primary Care Physician [facility] Work Phone: 11-23-2021 14:46-0400 Diastolic blood pressure 80 mm[Hg] No Primary Care Physician [facility] Work Phone: 11-23-2021 14:46-0400 Heart rate 102 /min No Primary Care Physician [facility] Work Phone: 11-23-2021 14:46-0400 Respiratory rate 14 /min No Primary Care Physician [facility] Work Phone: 11-23-2021 14:46-0400 SaO2% (BldA) [Mass fraction] 98 % No Primary Care Physician [facility] Work Phone: 11-23-2021 14:46-0400 Systolic blood pressure 136 mm[Hg] No Primary Care Physician [facility] Work Phone: 08-04-2021 14:35-0500 Body mass index (BMI) [Ratio] 31.3 kg/m2 No Primary Care Physician [facility] Work Phone: 08-04-2021 14:35-0500 Body weight 90.71 kg No Primary Care Physician [facility] Work Phone: 08-04-2021 14:35-0500 Diastolic blood pressure 80 mm[Hg] No Primary Care Physician [facility] Work Phone: 08-04-2021 14:35-0500 Systolic blood pressure 108 mm[Hg] No Primary Care Physician [facility] Work Phone: 08-04-2021 13:35-0500 Body height 170.18 cm No Primary Care Physician [facility] Work Phone: 08-04-2021 13:35-0500 Body mass index (BMI) [Ratio] 31.3 kg/m2 No Primary Care Physician [facility] Work Phone: 08-04-2021 13:35-0500 Body weight 90.71 kg No Primary Care Physician [facility] Work Phone: 08-04-2021 13:35-0500 Diastolic blood pressure 80 mm[Hg] No Primary Care Physician [facility] Work Phone: 08-04-2021 13:35-0500 Systolic blood pressure 108 mm[Hg] No Primary Care Physician [facility] Work Phone: 07-28-2021 08:26-0500 Body mass index (BMI) [Ratio] 31.3 kg/m2 No Primary Care Physician [facility] Work Phone: 07-28-2021 08:26-0500 Body weight 90.71 kg No Primary Care Physician [facility] Work Phone: 09-21-2020 07:32-0400 Body height 170.2 cm Ana Maria Baker MD Work Phone: [facility] 09-21-2020 07:32-0400 Body mass index (BMI) [Ratio] 29.44 kg/m2 Ana Maria Baker MD Work Phone: [facility] 09-21-2020 07:32-0400 Body temperature 97.81 [degF] Ana Maria Baker MD Work Phone: [facility] 09-21-2020 07:32-0400 Body weight 85.28 kg Ana Maria Baker MD Work Phone: [facility] 09-21-2020 07:32-0400 Diastolic blood pressure 76 mm[Hg] Ana Maria Baker MD Work Phone: [facility] 09-21-2020 07:32-0400 Heart rate 65 /min Ana Maria Baker MD Work Phone: [facility] 09-21-2020 07:32-0400 Respiratory rate 16 /min Ana Maria Baker MD Work Phone: [facility] 09-21-2020 07:32-0400 SaO2% (BldA) [Mass fraction] 97 % Ana Maria Baker MD Work Phone: [facility] 09-21-2020 07:32-0400 Systolic blood pressure 130 mm[Hg] Ana Maria Baker MD Work Phone: [facility] 08-26-2020 09:07-0400 BMI (Body Mass Index) 29.6 kg/m2 Shahla Castañeda [facility] 08-26-2020 09:07-0400 Body weight 85.73 kg Shahla Camejoa [facility] 08-26-2020 09:07-0400 Height 170.2 cm Shahla Castañeda [facility] 05-06-2020 12:26-0500 BMI (Body Mass Index) 31.61 kg/m2 Ana Maria Olivia [facility] 05-06-2020 12:26-0500 Body Temperature 98.29 [degF] Ana Maria Olivia [facility] 05-06-2020 12:26-0500 Body weight 91.54 kg Ana Maria Olivia [facility] 05-06-2020 12:26-0500 BP Diastolic 84 mm[Hg] Ana Maria Olivia [facility] 05-06-2020 12:26-0500 BP Systolic 120 mm[Hg] Ana Maria Olivia [facility] 05-06-2020 12:26-0500 Height 170.2 cm Ana Maria Olivia [facility] 05-06-2020 12:26-0500 Pulse (Heart Rate) 95 /min Ana Maria Rojasr [facility] 05-06-2020 12:26-0500 Pulse Oximetry 98 % Ana Maria Rojasr [facility] 05-06-2020 12:26-0500 Respiratory Rate 16 /min Ana Maria Rojasr [facility] 01-11-2018 09:06-0400 BMI (Body Mass Index) 27.88 kg/m2 [facility] 01-11-2018 09:06-0400 Body Temperature 98.01 [degF] [facility] 01-11-2018 09:06-0400 BP Diastolic 70 mm[Hg] [facility] 01-11-2018 09:06-0400 BP Systolic 104 mm[Hg] [facility] 01-11-2018 09:06-0400 Height 170.2 cm [facility] 01-11-2018 09:06-0400 Pulse (Heart Rate) 91 /min [facility] 01-11-2018 09:06-0400 Pulse Oximetry 98 % [facility] 01-11-2018 09:06-0400 Respiratory Rate 16 /min [facility] 01-11-2018 09:06-0400 Weight 80.74 kg [facility] Encounters Encounter Date Encounter Type Care Provider Facility Start: 02-24-2025 End: 02-24-2025 ambulatory Kartik RAE Work Phone: -Outpatient Breast Imaging Start: 02-24-2025 End: 02-24-2025 Patient encounter procedure Robyn RAE -Outpatient Breast Imaging Work Phone: Start: 02-24-2025 End: 02-24-2025 ambulatory Robyn Warner NP Facility:[facility] Start: 01-28-2025 End: 01-28-2025 ambulatory Robyn Warner APRN.CNP Work Phone: OB/Gynecology Comment on above: Mammogram Start: 01-14-2025 End: 01-14-2025 Telephone encounter Robyn Warner APRN.CNP Work Phone: OB/Gynecology Comment on above: Outside Labs Results Start: 12-30-2024 ambulatory Kartik Padgett Facility:[facility] Start: 12-30-2024 Non-patient / Non-visit Dr. Eulogio stevens DO -[facility] Start: 12-30-2024 End: 12-30-2024 Patient encounter procedure Robyn Warner [facility] -Laboratory Work Phone: Start: 12-30-2024 End: 12-30-2024 ambulatory Kartik Padgett [facility] Work Phone: -Laboratory Start: 12-30-2024 End: 12-30-2024 ambulatory Robyn Warner NP Facility:[facility] Start: 12-23-2024 End: 12-23-2024 Get Medical [...] Start: 12-19-2024 End: 12-19-2024 ambulatory KARTIK PADGETT Facility:[facility] Start: 12-11-2024 End: 12-11-2024 ambulatory [facility] Provider OB/Gynecology Comment on above: 12/19 Start: 12-11-2024 End: 12-11-2024 E-mail encounter from caregiver [facility] Provider OB/Gynecology Start: 10-17-2024 End: 10-17-2024 ambulatory Kartik Padgett [employer] [employer] Work Phone: -Physical Therapy Start: 10-17-2024 End: 10-17-[address] Daryl Geiger MD -Physical Therapy Work Phone: Start: 10-07-2024 ambulatory Chasidy Norton Facility:[facility] Start: 09-26-2024 End: 09-26-[address] Eulogio Mello DO -[facility] Work Phone: Start: 09-26-2024 End: 09-26-2024 ambulatory Kartik Padgett Facility:[facility] Start: 09-25-2024 End: 09-25-2024 Patient encounter procedure Robyn Warner APRN.PRINTER ASSISTANT Work Phone: OB/Gynecology Comment on above: Osteoarthritis of le ft knee, unspecified osteoarthritis type (Primary Dx); Anxiety; Stress incontinence; History of gestational diabetes; Binge-eating disorder, in full remission, mild; History of obesity Start: 09-25-2024 End: 09-25-2024 ambulatory ROBYN WARNER Facility:[facility] Start: 08-07-2024 End: 08-07-2024 Patient encounter procedure Brooke RAE -[facility] Work Phone: Start: 08-07-2024 End: 08-07-2024 ambulatory Kartik Padgett Facility:[facility] Start: 08-07-2024 End: 08-07-2024 ambulatory Kartik Padgett [facility] Work Phone: [facility] Work Phone: Start: 08-07-2024 End: 08-07-2024 Patient encounter procedure Brooke RAE -[facility] Work Phone: Start: 08-07-2024 End: 08-07-2024 ambulatory Kartik Padgett Facility:[facility] Start: 08-04-2024 End: 08-04-2024 Patient encounter procedure Brooke RAE -[facility] Work Phone: Start: 08-04-2024 End: 08-04-2024 ambulatory Kartik Padgett Facility:[facility] Start: 07-03-2024 End: 07-03-2024 Patient encounter procedure Robyn Warner APRN.PRINTER ASSISTANT Work Phone: OB/Gynecology Comment on above: Osteoarthritis of le ft knee, unspecified osteoarthritis type (Primary Dx); Anxiety; Stress incontinence; History of gestational diabetes; Binge-eating disorder, in full remission, mild; History of obesity Start: 07-03-2024 End: 07-03-2024 ambulatory ROBYN WARNER Facility:[facility] Start: 06-23-2024 ambulatory Kartik Padgett Facility:[facility] Start: 06-10-2024 ambulatory Kartik Hdezder Facility:[facility] Start: 06-10-2024 Non-patient / Non-visit Dr. Eulogio stevens DO [facility] Start: 06-10-2024 End: 06-10-2024 Admission to same day surgery center Dr. Eulogio Mello DO [facility] Start: 06-10-2024 End: 06-10-2024 [facility] Kartik Padgett Facility:[facility] Start: 04-15-2024 End: 04-15-2024 Refill Carolyn Dumas APRN.PRINTER ASSISTANT Work Phone: OB/Gynecology Comment on above: Refill Request Diflucan Start: 04-09-2024 End: 04-09-2024 ambulatory ROBYN WARNER Facility:[facility] Start: 04-09-2024 End: 04-09-2024 Patient encounter procedure Robyn Warner APRN.PRINTER ASSISTANT Work Phone: OB/Gynecology Comment on above: Osteoarthritis of le ft knee, unspecified osteoarthritis type (Primary Dx); Anxiety; Stress incontinence; History of gestational diabetes; Binge-eating disorder, in full remission, mild; History of obesity Start: 04-01-2024 End: 04-01-2024 ambulatory Kartik Padgett Facility:[facility] Start: 03-14-2024 End: 03-14-2024 ambulatory Kartik Padgett Facility:[facility] Start: 03-12-2024 ambulatory Jessica Gabeord Facility:[facility] Start: 03-12-2024 End: 03-12-2024 ambulatory [facility] Facility:[facility] Start: 03-07-2024 End: 03-07-2024 ambulatory Kartik Leroy Facility:[facility] Start: 02-13-2024 End: 02-13-2024 ambulatory ROBYN WARNER Facility:[facility] Start: 02-13-2024 End: 02-13-2024 Patient encounter procedure Robyn Warner APRN.CNP Work Phone: OB/Gynecology Comment on above: Osteoarthritis of le ft knee, unspecified osteoarthritis type (Primary Dx); Anxiety; Stress incontinence; History of gestational diabetes; Binge-eating disorder, in full remission, mild; History of obesity Start: 02-05-2024 End: 02-06-2024 Documentation procedure Mammography Coordinator [facility] Department Start: 02-05-2024 End: 02-06-2024 Letter encounter Mammography Coordinator [facility] Start: 02-01-2024 End: 02-01-2024 ambulatory ROBYN WARNER Facility:[facility] Start: 02-01-2024 End: 02-01-2024 Subsequent [facility] visit [facility] Comment on above: Encounter for screen ing mammogram for malignant neoplasm of breast [Z12.31] Start: 01-21-2024 End: 01-21-2024 Telephone encounter Robyn Warner APRN.CNP Work Phone: Mammogram Comment on above: Orders Start: 12-26-2023 End: 12-26-2023 Patient encounter procedure Robyn Warner APRN.CNP Work [...] in adulthood Start: 11-30-2023 ambulatory Robyn CHE RN.ANMOL Work Phone: OB/Gynecology Comment on above: medications Start: 11-30-2023 E-mail encounter fro m caregiver Robyn Warner APRN.CNP Work Phone: OB/Gynecology Start: 11-23-2023 End: 11-23-2023 Patient encounter procedure Robyn Warner APRN.PRINTER ASSISTANT Work Phone: OB/Gynecology Comment on above: Encounter for gyneco logical examination (general) (routine) without abnormal findings (Primary Dx); Stress incontinence; Encounter for screening mammogram for breast cancer; Heterogeneously dense tissue of both breasts on mammography; History of obesity Start: 11-23-2023 End: 11-23-2023 Patient encounter status Robyn Warner APRN.PRINTER ASSISTANT Work Phone: [facility] Start: 11-14-2023 Get Medical Advice Robyn carreno APRN.PRINTER ASSISTANT Work Phone: OB/Gynecology Comment on above: Refill Start: 10-02-2023 End: 10-02-2023 Patient encounter procedure Robyn Warner APRN.PRINTER ASSISTANT Work Phone: OB/Gynecology Comment on above: Vaginal dryness (Bria mariajose Dx); Low libido; Malaise and fatigue Start: 09-26-2023 End: 09-26-[address] [facility] Work Phone: Start: 09-26-2023 End: 09-26-[address] [facility]-Laboratory, OP Pavilion Start: 03-19-2023 End: 03-19-2023 ambulatory [facility] Kartik Padgett VS Work Phone: [facility] Work Phone: Start: 03-19-2023 End: 03-19-2023 Patient encounter procedure [facility] Kartik Padgett VS Work Phone: [facility]-Laboratory, Specimen Work Phone: Start: 03-19-2023 End: 03-19-2023 Patient encounter procedure [facility] Kartik Padgett VS Work Phone: [facility] Work Phone: Start: 03-18-2023 End: 03-18-2023 Emergency department patient visit [facility] Kartik Padgett VS Work Phone: [facility]-Emergency Department Work Phone: Start: 02-23-2023 End: 02-23-2023 Patient encounter procedure KYRA Padgett [facility] Work Phone: [facility] Work Phone: Start: 02-12-2023 End: 02-12-[address] [facility] Work Phone: Start: 02-12-2023 End: 02-12-[address] [facility]-MRI - [facility] Work Phone: Start: 01-26-2023 End: 01-26-2023 ambulatory MD Daria GARRIDO [facility] Work Phone: Start: 01-26-2023 End: 01-26-2023 Patient encounter procedure gloria GARRIDO [facility]-Outpatient Breast Imaging Work Phone: Start: 01-07-2023 ambulatory Robyn CHE RN.PRINTER ASSISTANT Work Phone: OB/Gynecology Comment on above: Mammogram Start: 10-17-2022 End: 10-17-2022 Patient encounter procedure MD Daria GARRIDO [facility] Work Phone: Start: 05-03-2022 End: 05-03-2022 Patient encounter procedure Robyn Warner APRN.PRINTER ASSISTANT Work Phone: OB/Gynecology Comment on above: Vulvovaginal itching (Primary Dx) Start: 04-27-2022 Telephone encounter Robyn augustin APRN.PRINTER ASSISTANT Work Phone: OB/Gynecology Comment on above: Patient Question Start: 04-18-2022 End: 04-18-2022 Patient encounter procedure oRbyn Warner APRN.PRINTER ASSISTANT Work Phone: OB/Gynecology Comment on above: Vaginal discharge (P rimary Dx); Vagina itching Start: 02-11-2022 End: 02-11-2022 Emergency department patient visit No Primary Care Physician [facility]-Emergency Department Start: 01-16-2022 End: 01-16-2022 ambulatory No Primary Care Physician [facility] Work Phone: Start: 01-16-2022 End: 01-16-2022 Patient encounter procedure No Primary Care Physician [facility]-Pulmonary Services/Neurology Start: 12-23-2021 End: 12-23-2021 Patient encounter procedure No Primary Care Physician [facility] Start: 12-09-2021 End: 12-09-2021 Patient encounter procedure No Primary Care Physician [facility] Start: 11-29-2021 Patient encounter status No Pr imary Care Physician [facility] Start: 11-29-2021 End: 11-29-2021 Encounter for general adult medical examination without abnormal findings No Primary Care Physician [facility] Start: 11-29-2021 End: 11-29-2021 Patient encounter procedure No Primary Care Physician [facility] Start: 11-23-2021 End: 11-23-2021 Patient encounter procedure No Primary Care Physician [facility] Start: 09-28-2021 End: 09-28-2021 Patient encounter procedure No Primary Care Physician [facility] Start: 08-17-2021 End: 08-17-2021 Patient encounter procedure No Primary Care Physician [facility]-Outpatient Breast Imaging Start: 08-04-2021 End: 08-04-2021 Patient encounter procedure No Primary Care Physician [facility] Start: 07-28-2021 End: 07-28-2021 Patient encounter procedure No Primary Care Physician [facility] Start: 06-30-2021 Orders Only Ana Maria Baker MD Work Phone: [facility] Primary Care Physicians Start: 05-09-2021 Registered Recurring No Primar y Care Physician [facility] Health - Other Staff Start: 02-17-2021 Orders Only Ana Maria Baker MD Work Phone: [facility] Primary Care Physicians Start: 02-16-2021 Orders Only Ana Maria Baker MD Work Phone: [facility] Primary Care Physicians Start: 01-28-2021 Chart abstracting Ana Maria Glover Work Phone: [facility] Start: 01-06-2021 End: 01-10-2021 Orders Only Cathy Salgado PRINTER ASSISTANT Work Phone: [facility] Primary Care Physicians Comment on above: Vaginal itching (Bria mariajose Dx) Occupational exposur e to COVID-19 virus (Primary Dx) Start: 12-14-2020 End: 12-14-2020 Orders Only Cathy Salgado PRINTER ASSISTANT Work Phone: [facility] Comment on above: Situational anxiety (Primary Dx) Start: 12-08-2020 ambulatory YOBANI HIDALGO [facility] Ambulatory Start: 12-01-2020 End: 12-01-2020 Orders Only Ana Maria Baker MD Work Phone: [facility] Start: 11-25-2020 End: 11-25-2020 ambulatory SHERRY BAGLEY [facility] Start: 11-22-2020 End: 11-22-2020 Orders Only Ana Maria Baker MD Work Phone: [facility] Start: 10-22-2020 End: 10-22-2020 ambulatory SHAHLA CASTAÑEDA [facility] Start: 10-22-2020 End: 10-22-2020 Postop follow up visit related to original px Shahla Castañeda MD Work Phone: [facility] Comment on above: 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) Start: 10-05-2020 End: 10-05-2020 ambulatory [facility] Start: 10-01-2020 End: 10-01-2020 ambulatory [facility] Start: 09-27-2020 End: 09-27-2020 Orders Only Ana Maria Baker MD Work Phone: [facility] Start: 09-21-2020 End: 09-25-2020 ambulatory ANA MARIA BAKER [facility] Start: 09-21-2020 End: 09-21-2020 ambulatory ANA MARIASARA BAKER [facility] Start: 09-21-2020 End: 09-21-2020 Office outpatient visit 15 minutes Ana Maria Baker MD Work Phone: [facility] Comment on above: 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); Physical exam Start: 09-21-2020 End: 09-21-2020 Physical examination Ana Maria Baker MD Work Phone: [facility] Start: 09-20-2020 End: 09-20-2020 Admission to same day surgery center Shahla Castañeda MD Work Phone: [facility] Start: 09-15-2020 End: 09-15-2020 [facility] Start: 09-15-2020 End: 09-15-2020 Office outpatient visit 25 minutes Shahla Castañeda MD Work Phone: [facility] Comment on above: 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) Start: 09-09-2020 [facility] Start: 08-27-2020 End: 08-28-2020 ambulatory ANA MARIA BAKER [facility] Start: 08-27-2020 End: 08-27-2020 Coordination of care plan Keily Ken Patient Navigator Start: 08-27-2020 End: 08-27-2020 Subsequent hospital visit by physician Shahla Castañeda Work Phone: [facility] Comment on above: Canceled (Provider/C ancelled) Arrived Start: 08-26-2020 End: 08-26-2020 Orders Only Ana Maria Baker Work Phone: [facility] Comment on above: Stress at home Start: 08-26-2020 End: 08-26-2020 Office outpatient new 45 minutes Ana Maria Baker Work Phone: [facility] Comment on above: Mass of upper inner quadrant of right breast (Primary Dx); Abnormal mammogram of right breast; Abnormal MRI, breast; Follow-up examination of abnormal mammogram Start: 08-25-2020 End: 08-26-2020 ambulatory PROVIDER NOT IN SYSTEM [facility] Start: 08-25-2020 End: 08-25-2020 Subsequent hospital visit by physician Provider Not In System [facility] Radiology External Films Comment on above: Arrived Start: 08-24-2020 End: 08-25-2020 Orders Only Ana Maria Olivia Work Phone: [facility] Comment on above: Stress at home (Prim alivia Dx) Follow-up examinatio n of abnormal mammogram (Primary Dx) Arrived Start: 08-20-2020 ambulatory ANA MARIA OLIVIA [facility] Ambulatory Start: 08-19-2020 End: 08-19-2020 Orders Only Ana Maria Olivia Work Phone: [facility] Comment on above: Follow-up examinatio n of abnormal mammogram (Primary Dx) Start: 08-17-2020 End: 08-17-2020 Orders Only Ana Maria Olivia Work Phone: [facility] Comment on above: Follow-up examinatio n of abnormal mammogram (Primary Dx) Start: 08-10-2020 End: 08-14-2020 Orders Only Ana Maria Olivia Work Phone: [facility] Comment on above: Encounter for screen ing for malignant neoplasm of breast, unspecified screening modality (Primary Dx) Lateral epicondyliti s, unspecified laterality (Primary Dx); Acute pain of left shoulder Start: 08-09-2020 End: 08-09-2020 Orders Only Ana Maria Olivia Work Phone: [facility] Comment on above: Encounter for screen ing for malignant neoplasm of breast, unspecified screening modality (Primary Dx) Start: 07-28-2020 End: 08-01-2020 ambulatory ANA MARIA OLIVIA [facility] Start: 07-22-2020 End: 07-22-2020 Patient encounter procedure Ana Maria Olivia Work Phone: [facility] Comment on above: Left shoulder pain, unspecified chronicity; Lateral epicondylitis, unspecified laterality Cigarette nicotine d ependence without complication Start: 07-22-2020 End: 07-26-2020 ambulatory [facility] Start: 07-20-2020 End: 07-21-2020 Patient encounter procedure ANA MARIA [facility] Start: 07-16-2020 End: 07-16-2020 Orders Only Cathy Salgado Work Phone: [facility] Comment on above: Cigarette nicotine d ependence without complication (Primary Dx) Start: 07-12-2020 End: 07-12-2020 Orders Only Ana Maria Olivia Work Phone: [facility] Comment on above: Lateral epicondyliti s, unspecified laterality (Primary Dx) Start: 07-07-2020 End: 07-07-2020 Orders Only Ana Maria Olivia Work Phone: [facility] Comment on above: Obesity (BMI 30-39.9 ) (Primary Dx) Start: 06-07-2020 End: 06-07-2020 Orders Only Ana Maria Olivia Work Phone: [facility] Comment on above: Obesity (BMI 30-39.9 ) Start: 06-01-2020 End: 06-01-2020 [facility] Start: 05-07-2020 End: 05-11-2020 ambulatory [facility] Start: 05-06-2020 End: 05-10-2020 ambulatory [facility] Start: 05-06-2020 End: 05-06-2020 ambulatory [facility] Start: 05-06-2020 End: 05-06-2020 Office outpatient new 30 minutes Ana Maria Olivia Work Phone: [facility] Comment on above: Lateral epicondyliti s, unspecified laterality (Primary Dx); Obesity (BMI 30-39.9) Start: 04-29-2020 End: 04-29-2020 ambulatory [facility] Start: 01-11-2018 Patient encounter status Shahla Castañeda MD Work Phone: [facility] Start: 01-11-2018 End: 01-11-2018 Office outpatient new 30 minutes Cathy CorneliusMala Nicole Work Phone: [facility] Start: 10-05-2017 End: 10-06-2017 Patient encounter procedure Cathy Salgado Facility:[facility] Procedures Date Procedure Procedure Detail Performing Clinician Start: 02-24-2025 Screening mammography Cornelius Padgett [facility] Work Phone: Start: 08-07-2024 MRI of lower extremity Kartik Padgett [employer] [employer] Work Phone: Start: 08-04-2024 Plain radiography of pelvis Kartik Padgett [employer] [employer] Work Phone: Start: 08-04-2024 Plain X-ray of femur Marco Antonio Padgett [employer] [employer] Work Phone: Start: 03-19-2023 Anaerobic microbial culture [facility] Kartik Padgett [facility] Work Phone: Start: 03-19-2023 Investigation of tra nsfusion reaction [facility] Kartik Padgett [facility] Work Phone: Start: 03-19-2023 Microbial culture, routine [facility] Kartik Padgett VS Work Phone: Start: 03-18-2023 X-ray of both feet [facility] Kartik Padgett [facility] Work Phone: Start: 02-12-2023 MRI of joint of lowe r extremity Start: 01-26-2023 Screening mammography M Adalberto Davidsonadrienchalo Rorashmi OLS Start: 02-11-2022 X-ray of both feet No P rimary Care Physician Start: 08-17-2021 Bilateral mammography N o Primary Care Physician Start: 08-17-2021 Ultrasonography of breast No Primary Care Physician Start: 07-28-2021 Radiologic examinati on of knee No Primary Care Physician Start: 08-27-2020 MM FOLLOW UP POST CL IP PLACEMENT Ana Maria Baker Work Phone: Start: 08-27-2020 Ultrasonography guid ed [...] Maria Olivia Start: 08-13-2020 Mammography Robyn augustin APRN.CNP Work Phone: Start: 05-06-2020 Adult depression scr eening assessment Ana Maria Olivia Plan of Treatment Date Care Activity Detail Author Start: 02-12-2032 Urine microalbumin profile DTaP,Tdap,Td Vaccine (8 - Td or Tdap) [facility] Start: 01-12-2028 Tetanus vaccination [facility] Start: 01-12-2028 Urine microalbumin profile DTAP,TDAP,TD (7 - Td or Tdap) [facility] Start: 04-03-2025 End: 04-03-2025 Patient encounter procedure 04/03/2025 7:30 AM EST Office Visit OB/Gynecology [address] [place] [address] Robyn Warner APRN.PRINTER ASSISTANT [address] [place] [address] weight management follow up OB/Gynecology Comment on above: weight management fo llow up Start: 03-20-2025 End: 03-20-2025 Patient encounter procedure 03/20/2025 7:00 AM EDT Office Visit OB/Gynecology [address] [place] [address] Robyn Warner APRN.PRINTER ASSISTANT [address] [place] [address] 3 month follow up OB/Gynecology Comment on above: 3 month follow up Start: 02-06-2025 End: 02-06-2025 Patient encounter procedure 02/06/2025 10:10 AM EDT Appointment Mammogram [address] [place] [address] Mammogram Start: 01-31-2025 Screening for malign ant neoplasm of breast Mammogram Screening [facility] Start: 01-26-2025 Influenza vaccination Influenza Vacc ine (#1) [facility] Start: 12-30-2024 Application of ice collar, cap or bag [facility] Start: 12-30-2024 Catheterization of vein [facility] Start: 12-30-2024 Elevation of affecte d extremity [facility] Start: 12-30-2024 Following clinical pathway protocol [facility] Start: 12-30-2024 Patient discharge [facility] Start: 12-30-[address] [facility] Start: 12-30-2024 Taking patient vital signs [facility] Start: 12-30-2024 Vital signs measurements [facility] Start: 12-30-2024 [facility] Start: 12-30-2024 Medication education [facility] Start: 12-19-2024 End: 03-20-2025 Comprehensive metabolic 2000 panel - Serum or Plasma COMPREHENSIVE METABOLIC PANEL Lab Routine Encounter for long-term (current) use of medications Expected: 12/19/2024, Expires: 03/20/2025 [facility] Work Phone: Comment on above: Expected: 12/19/2024 , Expires: 03/20/2025 Start: 12-19-2024 End: 12-19-2024 Patient encounter procedure 12/19/2024 7:00 AM EDT Office Visit OB/Gynecology [address] [place] [address] Robyn Warner APRN.PRINTER ASSISTANT [address] [place] [address] weight management follow up OB/Gynecology Comment on above: weight management fo [facility] Start: 11-21-2024 End: 11-21-2024 Patient encounter procedure 11/21/2024 7:30 AM EDT Office Visit OB/Gynecology [address] [place] [address] Robyn Warner, BRIM STIFFENER.PRINTER ASSISTANT [address] [place] [address] ANNUAL OB/Gynecology Comment on above: ANNUAL Start: 09-25-2024 End: 09-25-2024 Patient encounter procedure 09/25/2024 3:30 PM EDT Office Visit OB/Gynecology [address] [place] [address] Robyn Warner, BRIM STIFFENER.PRINTER ASSISTANT [address] [place] [address] wt mgmt f/up OB/Gynecology Comment on above: wt mgmt f/up Start: 07-03-2024 End: 07-03-2024 Patient encounter procedure 07/03/2024 2:30 PM EST Office Visit OB/Gynecology [address] [place] [address] Robyn Warner, BRIM STIFFENER.PRINTER ASSISTANT [address] [place] [address] wt mgmt f/up ok per AG OB/Gynecology Comment on above: wt mgmt f/up ok per AG Start: 06-10-2024 Anes nerve muscle td n fascia&bursa forearm wrist ANESTH LOWER ARM SURGERY [facility] Start: 06-10-2024 Injection therapeuti c carpal tunnel THER INJECTION CARP TUNNEL [facility] Start: 06-10-2024 Neuroplasty &/transp os median nrv carpal tunne CARPAL TUNNEL SURGERY [facility] Start: 06-10-2024 Application of ice collar, cap or bag [facility] Start: 06-10-2024 Catheterization of vein [facility] Start: 06-10-2024 Elevation of affecte d extremity [facility] Start: 06-10-2024 Following clinical pathway protocol [facility] Start: 06-10-2024 Patient discharge [facility] Start: 06-10-[address] [facility] Start: 06-10-2024 Taking patient vital signs [facility] Start: 06-10-2024 Vital signs measurements [facility] Start: 06-10-2024 [facility] Start: 06-10-2024 Medication education [facility] Start: 04-09-2024 End: 04-09-2024 Patient encounter procedure 04/09/2024 11:30 AM EST Office Visit OB/Gynecology [address] [place] [address] Robyn Warner APRN.PRINTER ASSISTANT [address] [place] [address] wt mgmt f/u OB/Gynecology Comment on above: wt mgmt f/u Start: 02-13-2024 End: 02-13-2024 Patient encounter procedure 02/13/2024 7:30 AM EDT Office Visit OB/Gynecology [address] [place] [address] Robyn Warner APRN.PRINTER ASSISTANT [address] [place] [address] wt mgt F/up OB/Gynecology Comment on above: wt mgt F/up Start: 02-01-2024 End: 02-01-2024 Patient encounter procedure 02/01/2024 8:10 AM EDT Appointment Mammogram [address] [place] [address] TAMIKO SCREENING W RJ Encounter for gynecological [...] Vaccine ( season) Covid-19 Vaccine ( season) [facility] Start: 01-27-2024 Covid-19 Vaccine ( season) Covid-19 Vaccine ( season) [facility] Start: 01-27-2024 Influenza vaccination Influenza Vacc ine (#1) [facility] Start: 01-27-2024 Screening for malign ant neoplasm of breast Mammogram Screening [facility] Start: 11-23-2023 End: 11-23-2023 Patient encounter procedure 11/23/2023 7:00 AM EDT Office Visit OB/Gynecology [address] [place], [place] [id number] Robyn Warner APRN.PRINTER ASSISTANT [address] [place] [address] Annual exam/breast exam OB/Gynecology Comment on above: Annual exam/breast e xam Start: 05-28-2023 Behavioral Health Screening Behavioral Health Screening [facility] Start: 03-18-2023 End: 03-18-[address] [facility] Start: 01-26-2023 Covid-19 Vaccine ( season) Covid-19 Vaccine ( season) [facility] Start: 01-26-2023 Influenza vaccination INFLUENZA (#1) [facility] Start: 05-28-2022 DEPRESSION ASSESSMENT DEPRESSION ASS ESSMENT [facility] Start: 01-26-2022 Influenza vaccination INFLUENZA (#1) [facility] Start: 01-03-2022 HPV TESTING HPV TESTING [facility] Start: 01-03-2022 PAP TESTING PAP TESTING [facility] Start: 01-03-2022 Screening for malign ant neoplasm of cervix [facility] Start: 08-19-2021 Screening for malign ant neoplasm of breast Mammogram [facility] Start: 08-19-2021 Screening mammography [facility] Start: 08-13-2021 Mammography MAMMOGRAM [facility] Start: 05-28-2021 DEPRESSION ASSESSMENT DEPRESSION ASS ESSMENT [facility] Start: 05-06-2021 Adolescent depressio n screening assessment Depression Screening (PHQ9) [facility] Start: 05-06-2021 Depression screening using PHQ-9 (Patient Health Questionnaire 9) score [facility] Start: 04-22-2021 End: 04-22-2021 Patient encounter procedure 04/22/2021 Office Visit Breast Surgery Shahla Castañeda MD [address] [facility] [address] [place] [address] [phone] [facility] Start: 01-26-2021 Influenza vaccination [facility] Start: 11-25-2020 End: 11-25-2020 Patient encounter procedure 11/25/2020 Office Visit Breast Surgery Sherry Bagley PA-C [address] [facility] [address] [place] [address] [phone] [facility] Start: 10-22-2020 End: 10-22-2020 Follow-up encounter 10/22/2020 Follow-Up Breast Surgery Shahla Castañeda MD [address] [facility] [address] [place] [address] [phone] [facility] Start: 10-05-2020 End: 10-05-2020 Admission to same day surgery center 10/05/2020 Surgery Shahla Castañeda MD [address] [facility] [address] [place] [address] [phone] Right breast open excisional biopsy with intraoperative ultrasound-guided localization [facility] Comment on above: Right breast open ex cisional biopsy with intraoperative ultrasound-guided localization Start: 10-05-2020 Subsequent hospital visit by physician 10/05/2020 Hospital Encounter Shahla Castañeda MD [address] [address] [place] [address] [phone] [facility] Start: 09-21-2020 End: 09-21-2020 Patient encounter procedure 09/21/2020 Office Visit Primary Care Ana Maria Baker MD [address] [address] [phone] [facility] Start: 08-27-2020 End: 08-26-2021 US Breast Right Limited US Breast Right Limited Imaging Routine Mass of upper inner quadrant of right breast Expected: 08/27/2020, Expires: 08/26/2021 [facility] Comment on above: Expected: 08/27/2020 , Expires: 08/26/2021 Start: 08-27-2020 End: 08-27-2020 Office Visit [facility] Start: 08-26-2020 End: 08-26-2021 Ultrasonography guided biopsy of right breast US Breast Biopsy Right Imaging Routine Mass of upper inner quadrant of right breast Expected: 08/26/2020, Expires: 08/26/2021 [facility] Comment on above: Expected: 08/26/2020 , Expires: 08/26/2021 Start: 08-26-2020 End: 08-26-2020 Appointment [facility] Breast [facility] Start: 08-24-2020 End: 08-24-2021 Ultrasonography guided biopsy of right breast US Breast Biopsy Right Imaging Routine Stress at home Expected: 08/24/2020, Expires: 08/24/2021 [facility] Comment on above: Expected: 08/24/2020 , Expires: 08/24/2021 Start: 08-20-2020 End: 08-20-2021 MRI of breast MR Breast Bilateral With And Without Contrast Imaging Routine Follow-up examination of abnormal mammogram Expected: 08/20/2020, Expires: 08/20/2021 [facility] Comment on above: Expected: 08/20/2020 , Expires: 08/20/2021 Start: 08-19-2020 End: 08-19-2021 MR Breast Right With Contrast MR Breast Right With Contrast Imaging Routine Follow-up examination of abnormal mammogram Expected: 08/19/2020, Expires: 08/19/2021 [facility] Comment on above: Expected: 08/19/2020 , Expires: 08/19/2021 Start: 08-19-2020 End: 08-19-2020 Treatment [facility] Start: 08-17-2020 End: 10-17-2021 MG Breast - bilateral diagnostic Mammography Diagnostic Bilateral Imaging Routine Follow-up examination of abnormal mammogram Expected: 08/17/2020, Expires: 10/17/2021 [facility] Comment on above: Expected: 08/17/2020 , Expires: 10/17/2021 Start: 08-12-2020 End: 08-12-2020 Treatment [facility] Start: 08-10-2020 End: 10-10-2021 MG Breast - bilateral screening Mammography Screening Bilateral Imaging Routine Encounter for screening for malignant neoplasm of breast, unspecified screening modality Expected: 08/10/2020, Expires: 10/10/2021 [facility] Comment on above: Expected: 08/10/2020 , Expires: 10/10/2021 Start: 08-10-2020 End: 08-10-2020 Treatment [facility] Start: 08-09-2020 End: 08-09-2020 Office Visit [facility] Start: 08-09-2020 End: 10-09-2021 MG Breast - bilateral screening Mammography Screening Bilateral Imaging Routine Encounter for screening for malignant neoplasm of breast, unspecified screening modality Expected: 08/09/2020, Expires: 10/09/2021 [facility] Comment on above: Expected: 08/09/2020 , Expires: 10/09/2021 Start: 08-05-2020 End: 08-05-2020 Treatment 08/05/2020 Treatment Rehabilitation Ana Maria Baker MD [address] [place] [phone] Marlon Mills PTA [facility] Start: 07-29-2020 End: 07-29-2020 Treatment 07/29/2020 Treatment Rehabilitation Ana Maria Baker MD [address] [place] [address] [phone] Marlon Mills PTA [facility] Start: 07-22-2020 End: 07-22-2020 Evaluation 07/22/2020 Evaluation Rehabilitation Ana Maria Baker MD [address] [place] [address] [phone] Chato Britton, PT [facility] Start: 01-27-2020 Influenza vaccination Sequenti al Influenza Vaccine (#1) [facility] Start: 01-27-2020 Influenza vaccinatio n given Sequential Influenza Vaccine (#1) [facility] Start: 01-04-2020 Screening for malign ant neoplasm of cervix Cervical Cancer Screening [facility] Start: 01-26-2018 Influenza vaccination SEQUENTI AL INFLUENZA VACCINE (#1) [facility] Start: 03-27-2008 Hepatitis B Vaccine (3 of 3 - 19+ 3-dose series) Hepatitis B Vaccine (3 of 3 - 19+ 3-dose series) [facility] Start: 01-30-2008 HEPATITIS B (3 of 3 - 19+ 3-dose series) HEPATITIS B (3 of 3 - 19+ 3-dose series) [facility] Start: 01-20-2008 HEPATITIS B (3 of 3 - 19+ 3-dose series) HEPATITIS B (3 of 3 - 19+ 3-dose series) [facility] Start: 07-31-2007 HPV Vaccine (1 - 3-d ose SCDM series) HPV Vaccine (1 - 3-dose SCDM series) [facility] Start: 1998 Depression Screening Depression Scre ening [facility] Start: 1998 Hepatitis C antibody , confirmatory test Hepatitis C Screening [facility] Start: 1998 Hepatitis C screening Hepatitis C [facility] Start: 1998 HEPATITIS C SCREENING HEPATITIS C [facility] Start: 1998 HIV SCREENING HIV SCREENING [facility] Start: 1998 HIV screening HIV Screening [facility] Start: 1996 COVID-19 Vaccine (1 of 2) COVI D-19 Vaccine (1 of 2) [facility] Start: 1996 COVID-19 Vaccine (1) COVID-19 Vaccin e (1) [facility] Start: 07-31-1995 HIV screening HIV Screening [facility] Start: 1992 COVID-19 Vaccine (1) COVID-19 Vaccin e (1) [facility] Start: 1986 Pneumococcal Vaccine : Ped or At-Risk (1 of 4 - PCV13) Pneumococcal Vaccine: Ped or At-Risk (1 of 4 - PCV13) [facility] [facility] Start: 07-31-1983 History and physical examination, annual for health maintenance Wellness Visit [facility] Start: 01-30-1981 COVID-19 VACCINE (#1) COVID-19 VACCI NE (#1) [facility] Start: 1980 Screening mammography Mammogram [facility] BACTERIAL VAGINOSIS AMPLIFICATION BACTERIAL VAGINOSIS AMPLIFICATION Lab Routine Vaginal discharge Vagina itching 04/18/2022 4:03 PM EST [facility] Work Phone: End: 05-06-2021 Body mass index (BMI) [Ratio] Vitamin D, Total, 25-OH Lab Routine Obesity (BMI 30-39.9) 1 Occurrences starting 05/06/2020 until 05/06/2021 [facility] Comment on above: 1 Occurrences starti ng 05/06/2020 until 05/06/2021 EILEEN / TRICHOMONA S AMPLIFICATION EILEEN / TRICHOMONAS AMPLIFICATION Microbiology Routine Vaginal discharge Vagina itching 04/18/2022 4:03 PM EST [facility] Work Phone: End: 05-06-2021 Complete blood count with white cell differential, manual CBC and Differential Lab Routine Obesity (BMI 30-39.9) 1 Occurrences starting 05/06/2020 until 05/06/2021 [facility] Comment on above: 1 Occurrences starti ng 05/06/2020 until 05/06/2021 End: 05-06-2021 Comprehensive metabolic 2000 panel Comprehensive Metabolic Panel Lab Routine Obesity (BMI 30-39.9) 1 Occurrences starting 05/06/2020 until 05/06/2021 [facility] Comment on above: 1 Occurrences starti ng 05/06/2020 until 05/06/2021 End: 09-21-2021 Comprehensive metabolic 2000 panel - Serum or Plasma Comprehensive Metabolic Panel Lab Routine 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 Physical exam 1 Occurrences starting 09/21/2020 until 09/21/2021 [facility] Comment on above: 1 Occurrences starti ng 09/21/2020 until 09/21/2021 Comprehensive metabo lic 2000 panel - Serum or Plasma Comprehensive Metabolic Panel Lab Routine 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 Physical exam 09/21/2020 9:20 AM EDT [facility] End: 12-22-2024 DBT Breast - bilateral screening TAMIKO SCREENING [facility] Routine Encounter for gynecological examination (general) (routine) without abnormal findings Encounter for screening mammogram for breast cancer Heterogeneously dense tissue of both breasts on mammography 1 Occurrences starting 11/23/2023 until 12/22/2024 [facility] Work Phone: Comment on above: 1 Occurrences starti ng 11/23/2023 until 12/22/2024 End: 02-19-2025 DBT Breast - bilateral screening TAMIKO SCREENING [facility] Routine Encounter for screening mammogram for malignant neoplasm of breast 1 Occurrences starting 01/21/2024 until 02/19/2025 [facility] Work Phone: Comment on above: 1 Occurrences starti ng 01/21/2024 until 02/19/2025 DBT Breast - bilater al screening TAMIKO SCREENING [facility] Routine Encounter for screening mammogram for malignant neoplasm of breast 02/01/2024 1:20 PM EDT [facility] Work Phone: End: 02-27-2026 DBT Breast - bilateral screening TAMIKO SCREENING [facility] Routine Encounter for screening mammogram for malignant neoplasm of breast 1 Occurrences starting 01/28/2025 until 02/27/2026 [facility] Work Phone: Comment on above: 1 Occurrences starti ng 01/28/2025 until 02/27/2026 Drugs of abuse urine screening test Drugs of Abuse Screen, Urine Lab Routine Obesity (BMI 30-39.9) 05/06/2020 2:03 PM [facility] Fungus identified in Unspecified specimen by Culture FUNGAL SCREEN Microbiology Routine Vulvovaginal itching Ordered: 05/03/2022 [facility] Work Phone: Comment on above: Ordered: 05/03/2022 End: 05-06-2021 HbA1c (Bld) [Mass fraction] Hemoglobin A1c Lab Routine Obesity (BMI 30-39.9) 1 Occurrences starting 05/06/2020 until 05/06/2021 [facility] Comment on above: 1 Occurrences starti ng 05/06/2020 until 05/06/2021 End: 05-06-2021 Lipid 1996 panel Lipid Panel Lab Routine Obesity (BMI 30-39.9) 1 Occurrences starting 05/06/2020 until 05/06/2021 [facility] Comment on above: 1 Occurrences starti ng 05/06/2020 until 05/06/2021 End: 10-26-2021 Mammography Stereotactic Breast Biopsy Right Mammography Stereotactic Breast Biopsy Right Imaging Routine Mass of upper inner quadrant of right breast 1 Occurrences starting 08/26/2020 until 10/26/2021 [facility] Comment on above: 1 Occurrences starti ng 08/26/2020 until 10/26/2021 End: 08-27-2020 Mammography Stereotactic Breast Biopsy Right Mammography Stereotactic Breast Biopsy Right Imaging Routine Mass of upper inner quadrant of right breast Once for 1 Occurrences starting 08/27/2020 until 08/27/2020 [facility] Comment on above: Once for 1 Occurrenc es starting 08/27/2020 until 08/27/2020 Patient Education [facility] Work Phone: Patient referral [facility] Work Phone: Procedure on tissue specimen [facility] Comment on above: Release Upon Orderin g for 1 Occurrences starting 08/27/2020, 1 completed End: 01-06-2022 SARS-CoV-2 (COVID-19) IgG Ab [Presence] in Serum or Plasma by Immunoassay SARS-CoV-2 Antibody, IgG Lab Routine Occupational exposure to COVID-19 virus 1 Occurrences starting 01/06/2021 until 01/06/2022 [facility] Comment on above: 1 Occurrences starti ng 01/06/2021 until 01/06/2022 SARS-CoV-2 (COVID-19 ) IgG Ab [Presence] in Serum or Plasma by Immunoassay SARS-CoV-2 Antibody, IgG Lab Routine Occupational exposure to COVID-19 virus 01/06/2021 3:06 PM EDT [facility] End: 05-06-2021 TSH Qn TSH with Reflex Free T4 Lab Routine Obesity (BMI 30-39.9) 1 Occurrences starting 05/06/2020 until 05/06/2021 [facility] Comment on above: 1 Occurrences starti ng 05/06/2020 until 05/06/2021 Immunizations Immunization Date Immunization Notes Care Provider Gricelda davis 04-10-2024 influenza, seasonal, injectable, preservative free Kartik Padgett [employer] Work Phone: [facility] 04-10-2024 influenza virus vaccine, unspecified formulation Ccf Provider [facility] 03-15-2023 influenza, injectabl e, quadrivalent, preservative free [employer] Kartik Padgett VSC Work Phone: [facility] 03-15-2023 influenza virus vaccine, unspecified formulation Robyn Warner APRN.[facility] Work Phone: [facility] 02-11-2022 tetanus toxoid, reduced diphtheria toxoid, and acellular pertussis vaccine, adsorbed No Primary Care Physician [facility] 05-16-2021 influenza, injectabl e, quadrivalent, preservative free [facility] 05-16-2021 influenza, seasonal, injectable No Primary Care Physician [facility] 09-18-2018 hepatitis A vaccine, adult dosage [facility] 01-11-2018 tetanus toxoid, reduced diphtheria toxoid, and acellular pertussis vaccine, adsorbed; Translations: [TDAP] [facility] 12-12-2017 hepatitis A vaccine, adult dosage [facility] 12-12-2017 hepatitis A vaccine, unspecified formulation [facility] 01-31-2008 hepatitis B vaccine, pediatric or pediatric/adolescent dosage [facility] 08-30-2007 hepatitis B vaccine, adult dosage [facility] 08-30-2007 hepatitis B vaccine, unspecified formulation Robyn Warner APRN.[facility] Work Phone: [facility] 07-29-2007 tuberculin skin test ; purified protein derivative solution, intradermal Robyn Colinie BRIM STIFFENER.PRINTER ASSISTANT Work Phone: [facility] 07-24-2007 tuberculin skin test ; purified protein derivative solution, intradermal Robyn Willoughbyhrie BRIM STIFFENER.[facility] Work Phone: [facility] 07-22-2007 hepatitis B vaccine, adult dosage [facility] 07-22-2007 tetanus toxoid, reduced diphtheria toxoid, and acellular pertussis vaccine, adsorbed [facility] 05-28-1993 diphtheria and tetan us toxoids, adsorbed for pediatric use [facility] 01-17-1993 measles, mumps and rubella virus vaccine [facility] 02-19-1987 trivalent poliovirus vaccine, live, oral [facility] 02-09-1986 diphtheria, tetanus toxoids and pertussis vaccine [facility] 02-09-1986 measles, mumps and rubella virus vaccine [facility] 02-09-1986 trivalent poliovirus vaccine, live, oral [facility] 02-09-1986 tuberculin skin test ; purified protein derivative solution, intradermal Robyn Warner APRN.PRINTER ASSISTANT Work Phone: [facility] 01-21-1981 diphtheria, tetanus toxoids and pertussis vaccine [facility] 01-21-1981 trivalent poliovirus vaccine, live, oral [facility] 1980 diphtheria, tetanus toxoids and pertussis vaccine [facility] 1980 trivalent poliovirus vaccine, live, oral [facility] Payers Date Payer Category Payer Self-pay [id number] 2023 Unknown [id number] 2021 Private Health Insurance [id number] .[id number]. [id number] 2020 Unknown [id number] 1.2.840.420733.1.13.385.2. 7.3.743486.315 2020 Unknown [id number] 2014 Unknown 2014 Unknown [id number] 1980 Unknown [id number] 2.16.840.1.839412.3.579.2. 717 1980 Unknown [id number] 2.16840.1.489635.3.579.2. 902 1980 Unknown [id number] 2.16.840.1.971086.3.579.2. 900 1980 Unknown [id number] 2.16.840.1.501642.3.579.2. 900 1980 Unknown [id number] 2.16.840.1.062220.3.579.2. 900 1980 Unknown [id number] 2.16840.1.129854.3.579.2. 1980 Unknown [id number] 2.16.840.1.812791.3.579.2. 1980 Unknown [id number] 2.16.840.1.360347.3.579.2. 1980 Unknown [id number] 2.16.840.1.528737.3.579.2. 1980 Unknown [id number] 2.16840.1.201532.3.579.2. 1980 Unknown [id number] 2.16840.1.813526.3.579.2. 1980 Unknown [id number] 2.16840.1.131932.3.579.2 1980 Unknown [id number] 2.16840.1.408066.3.579.2 1980 Unknown [id number] 2.16840.1.343980.3.579.2 1980 Unknown [id number] 2.16840.1.891005.3.579.2 1980 Unknown [id number] 2.16840.1.568451.3.579.2 1980 Unknown [id number] 2.16840.1.970723.3.579.2 1980 Unknown [id number] 2.16840.1.815510.3.579.2 1980 Unknown [id number] 2.16840.1.970322.3.579.2 1980 Unknown [id number] 2.16840.1.421814.3.579.2 1980 Unknown [id number] 2.16840.1.806527.3.579.2 1980 Unknown [id number] 2.16840.1.102765.3.579.2 90 1980 Unknown [id number] 2.16840.1.615075.3.579.2. 1980 Unknown [id number] 2.16840.1.717902.3.579.2. 1980 Unknown [id number] 2.16840.1.333443.3.579.2. 1980 Unknown [id number] 2.840.1.307989.3.579.2. 1980 Unknown [id number] 2.0.1.467743.3.579.2. 1980 Unknown [id number] 2.0.1.901200.3.579.2. 1980 Unknown [id number] 2.0.1.877790.3.579.2 1980 Unknown [id number] 2.840.1.610318.3.579.2. 1980 Unknown [id number] 2.0.1.590431.3.579.2. 1980 Unknown [id number] 2.840.1.543529.3.579.2. 903 Private Health Insurance [id number] Unknown [id number] Unknown [facility] [id number] Unknown S&S COLLECT SE LF PAY [id number] Unknown [facility] PACKAGE PLAN [id number] Unknown [id number] 2840.1.009380.3.579.2. 462 Unknown [id number] 2.16.840.1.236757.3.579.2. 462 Unknown [id number] 2.16.840.1.103607.3.579.2. 462 Unknown [id number] 2.16.840.1.458955.3.579.2. 462 Unknown [id number] 2.16.840.1.755729.3.579.2. 462 Unknown [id number] 2.16840.1.739887.3.579.2. 462 Unknown [id number] 2.16.840.1.525271.3.579.2. 462 Unknown [id number] 2.840.1.460019.3.579.2. 462 Unknown [id number] 2.16840.1.283588.3.579.2. 462 Unknown [id number] 2.840.1.002291.3.579.2. 462 Unknown [id number] 2.840.1.854526.3.579.2. 462 Unknown [id number] 2.840.1.717624.3.579.2. 462 Unknown [id number] 2.840.1.661151.3.579.2. 462 Unknown [id number] 2.16840.1.867302.3.579.2. 462 Unknown [id number] 2.840.1.188867.3.579.2. 462 Unknown [id number] 2.840.1.479380.3.579.2. 462 Unknown [id number] 2.840.1.191435.3.579.2. 462 Unknown [id number] 2.840.1.483700.3.579.2. 462 Unknown [id number] 2.840.1.852443.3.579.2. 462 Social History Date Type Detail Facility Start: 01-11-2018 End: 07-28-2020 Tobacco smoking status NHIS Current some day smoker [facility] Start: 05-28-1999 End: 07-26-2020 History of tobacco use Cigarette Smoker [facility] Start: 01-11-2018 End: 11-23-2023 Cigarettes smoked current (pack per day) - Reported [facility] Start: 1980 Sex Assigned At Not on file [facility] Start: 05-06-2020 End: 04-18-2022 Tobacco use and exposure Never used [facility] Start: 05-06-2020 End: 12-19-2024 Alcohol intake Current drinker of alcohol (finding) [facility] Start: 05-06-2020 End: 09-21-2020 History SDOH Social Connections Get Together 2 [facility] Start: 05-06-2020 End: 09-21-2020 History SDOH Financial 5 [facility] Start: 05-06-2020 End: 09-21-2020 History SDOH Food Worry 1 [facility] Start: 05-06-2020 Tobacco Comment SOCIAL ONLY WH EN HAVING DRINKS [facility] Start: 05-06-2020 Alcohol Comment [facility]IAL [facility] Start: 04-08-2022 End: 04-18-2022 Exposure to SARS-CoV-2 (event) Not sure [facility] Start: 05-06-2020 Tobacco Comment SOCIAL ONLY WH EN HAVING DRINKS [facility] Start: 09-21-2020 End: 12-16-2024 Tobacco smoking status NHIS Former smoker [facility] Start: 05-28-1999 End: 07-26-2020 History of tobacco use Current smoker [facility] Start: 10-22-2020 End: 11-25-2020 Alcohol intake Ex-drinker (finding) [facility] Start: 08-04-2021 End: 09-26-2024 Tobacco smoking status NHIS Unknown if ever smoked [facility] Start: 1980 Sex Assigned At Female W [facility] Start: 04-18-2022 Tobacco Comment social smoker now, estimates 1 pack lasts her two weeks [facility] Start: 05-03-2022 End: 11-23-2023 Tobacco use panel [facility] Start: 04-28-2012 Adult Depression Screening Assessment 0 [facility] Start: 08-07-2024 Tobacco smoking stat us NHIS Smokes tobacco daily (finding) [facility] Start: 08-16-2024 Sex Female (finding) [facility] NEGATED: Highlighted row Not [facility] Goals Date Patient Goal Desired Activity /State Functional Status Date Assessment Result Facility 01-02-2015 Are you deaf, or do you have serious difficulty hearing No 01/02/2015 8:48 AM EDT Debra Ruff LPN No [facility] 01-02-2015 Are you blind, or do you have serious difficulty seeing, even when wearing glasses No 01/02/2015 8:48 AM EDT Debra Ruff LPN No [facility] 01-02-2015 Do you have serious difficulty walking or climbing stairs No 01/02/2015 8:48 AM EDT Debra Ruff LPN No [facility] 01-02-2015 Do you have difficul ty dressing or bathing No 01/02/2015 8:48 AM EDT Debra Ruff LPN No [facility] 01-02-2015 Because of a physica l, mental, or emotional condition, do you have difficulty doing errands alone such as visiting a physician's office or shopping No 01/02/2015 8:48 AM EDT Debra Ruff LPN No [facility] Mental Status Date Assessment Result Facility 06-10-2024 Cognitive function Voice/Name;To [facility] Work Phone: 01-02-2015 Because of a physica l, mental, or emotional condition, do you have serious difficulty concentrating, remembering, or making decisions No 01/02/2015 8:48 AM EDT Debra Ruff LPN No [facility] Clinical Notes 06-10-2015 to 01-14-2025 Telephone Encounter - Linwood Wiseman RN - 01/14/2025 11:44 AM EDTTelephone Encounter - Linwood Wiseman RN - 01/14/2025 11:44 AM Robyn Cabrera APRN.[facility]MOL - 12/19/2024 7:00 AM EDTPatient Instructions Note Date & Type Note Facility 01-14-2025 Telephone encounter Note Lab results from [facility] collected on 12/30/24 on AG desk for review. Linwood Wiseman RN [facility] 01-14-2025 Miscellaneous Notes Lab results from [facility] collected on 12/30/24 on AG desk for review. Linwood Wiseman RN documented in this encounter [facility] 12-30-2024 Note [facility] Medical Records Department [address] [place] [address] History Physical Exam 12/30/24 0704 MR#: [id number] Acct: [id number] Name: DO OLSON Rep #: [id number] : 1980 44 From: Eulogio Mello DO PCP: KYRA Riddle Status:[facility] Location: [place] [address] History and Physical Date of Admission: 12/30/24 [facility] [address] [place] [address] [address] [place] [address] OFFICE VISIT Date of Service: 09/26/24 MR#: [id number] Acct: [id number] Name: DO OLSON Rep #: [id number] : 1980 Provider: Dr. Eulogio Mello DO Age/Sex: 44/F Location: [facility].LINDA Status: Signed Intake Vital Signs 09/22/2510:14 Height 5 ft 7 in Intake Visit Reasons: LEFT WRIST Allergies amoxicillin Allergy (Verified 09/26/24 08:52) Rash Medications ???Medication ???Instructions ???Recorded ???Confirmed ???Type fexofenadine 180 mg tablet 180 mg PO DAILY PRN allergic 07/20/22 09/26/24 His tory (Melinda Allergy) symptoms fluoxetine 20 mg capsule See Rx Instructions .Route 01/30/23 09/26/24 Rx .COMPLEX #30 CAPSULES amoxicillin 500 mg tablet 500 mg PO TID #30 tabs 04/01/24 09/26/24 Rx collagen SUPPELEMENT 1 dose PO DAILY 05/20/24 09/26/24 History metformin 500 mg tablet,extended 500 mg PO BID 05/20/24 09/26/24 History release 24 hr phentermine 37.5 mg tablet 37.5 mg PO DAILY 05/20/24 09/26/24 History trazodone 50 mg tablet 50 mg PO QHS 05/20/24 09/26/24 History tirzepatide (weight loss) 15 15 mg subcut QWEEK 06/10/24 09/26/24 History mg/0.5 mL subcutaneous pen injector (Zepbound) ketorolac 10 mg tablet 10 mg PO Q8H #15 tabs 08/04/24 09/26/24 Rx cyclobenzaprine 10 mg tablet 10 mg PO TID PRN muscle spasm #30 08/07/24 5 Rx tabs PFSH Medical History Former smoker [...] can appreciate in her fingers or hand Head: Normocephalic Atraumatic Chest: symmetrical rise, non-labored breathing, no audible wheeze Abdomen: no guarding, non-rigid Office Procedures Ortho Injections Injections Yes Carpal [...] worsens or if they have any concerns. (more content not included)... [facility] 12-19-2024 History of Presen t illness Narrative Some documentation from previous visit [...] and granola S - none D - 6183-1757 protein and veg and small carb - potato/pasta/corn/rice No dessert S - rare - popcorn or ice cream Fluids: water Bedtime - 6740-1404 Eating Disorder binge eating Dietary changes: - [...] from his new company and that their senior auditor said they have a strong case. 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 Outside labs: 12/27/2023 [facility] CBC WNL; CMP WNL; Hgba1c 5.0; Total [...] that continued use is off label for mcc management of weight control. The patient is [...] 4 - Moderate documented in this encounter [facility] 12-19-2024 Note HNO ID: [id number] Author: ROBYN WARNER APRN.CNP Service: ? Author [...] and granola S - none D - 9845-4135 protein and veg and small carb - potato/pasta/corn/rice No dessert S - rare - popcorn or ice cream Fluids: water Bedtime - 8240-2731 Eating Disorder binge eating Dietary changes: - [...] from his new company and that their senior auditor said they have a strong case. - [...] Current Outpatient Medications (more content not included)... [facility] 12-17-2024 Instructions Robyn Warner APRN.PRINTER ASSISTANT - 12/17/2024 8:10 PM EDT -- Metformin [...] protein & 2g carb Two Good Lowfat Guatem[place] Yogurt, Lower Sugar - 12g protein & [...] oz is 28 gm protein Beef, Chicken, [place], Pork, Eli 1 oz 7g Fish, Tuna [...] (not a meal replacement) Protein AND carbs Beef/[place] Jerky 1 oz dried 10-15g protein - [...] 8 oz -13g protein & 6g carb Guatemalan yogurt Full Fat Guatemalan Yogurt 1 cup - 20.4g protein & 9.1g carb 2% [place]alan Yogurt 1 cup - 22.7g protein & 9.1g carb 0% (fat-free) Guatemalan Yogurt - 1 cup 24g protein & 9.3g carb Aldi Protein Guatemalan yogurt single svg - 13/g15g protein & 7g carb Chobani Zero Sugar single svg: - 12g protein & 5g carb Dannon Guatemalan Light + Fit 1 single svg - 12g protein & 9g carb Oikos Pro single svg - 20g protein & 8g carb Oikos Triple Zero Guatemalan Nonfat Yogurt 1 single svg - 15g protein & 7g carb :ratio, KETO Friendly Dairy Snack 1 single svg - 15g protein & 2g carb :ratio Protein 1 single svg - 25g protein & 8g carb Two Good Lowfat Guatemalan Yogurt, [place], Lower Sugar - 12g protein & 2g carb Yoplait Protein 1 single svg 15g protein & 5g carb Dairy Free - [place] unsweetened Guatemalan almond/soy 15g protein & 3g carb Dairy [...] Cream Cheese 1.7g protein & 1.2g carb [employer] whipped Guatemalan cream cheese (WM) 2 T 3g protein 2g carb Feta 4g protein & 1.2g carb Mozzarella 6.3g protein & 0.6g carb Parmesan 10g protein & 0.9g carb Nauruan 7.6g protein & 1.5g carb Cottage Cheese 1/2 c Breakstone 2% 13g protein 7g carb Nandini 2% 13g protein 5 g carb Good Culture 2% 14g protein 3g carb Lactaid 13g protein 5g carb Patel s Low Fat 12g protein & 4g carb Legumes Lentils cup 9g protein & 20g carb Mcdonald beans cup 7g protein & 20g carb Kidney, Black, [place], Cannellini beans cup 8g protein & 20g carb Chickpeas 1/2 c 6g protein & 15g carb Soybeans 1/2 c 14g complete protein & 8.5g carb [place] milk, unsweetened 8 oz 1g protein & 2g carb Soy milk 8 oz 3.5g protein & 1.6g carb Tofu 1/2 cup 10g protein & 2.3g carb Peanut butter, natural 2 Tbsp 7-8g protein & 4g net carbs, 190 calories PB2 powder 2 Tbsp 6g protein & 5g carb Nuts and Seeds per oz Almonds - 5.9g protein & 6.1g carb [place] Nuts - 4.0g protein & 3.4g carb [...] Seeds - 6.9g protein & 5g carb Taliaferro Seeds - 5.8g protein & 5.6g carb Walnuts - 4.3g protein & 3.8g carb Edamame Beans (soybean) snack 1 pack 11 gm complete protein 2 carb 5 (FIVE) gram carb vegetable options 1 cup raw OR cup cooked: Asparagus Hernandez sprouts Beets Broccoli Brussel sprouts Cabbage Carrots Cauliflower Celery [place] Eggplant Green beans Lettuce Peppers Snap peas [...] High Protein Snack Ideas 1. Jerky 2. [place] mix without dried fruit 3. [place] roll-ups 4. Guatemalan yogurt 5. Veggies and yogurt dip 6. Tuna 7. Hard-boiled eggs 8. Peanut butter with celery 9. Cheese slices/ Cheese Stick 10. Handful of almonds, peanuts or walnuts 11. Cottage Cheese 12. Beef sticks 13. Protein bars 14. Canned [place] 15. Pumpkin seeds 16. Nut butter 17. Protein shake or protein bar 18. Avocado and chicken salad 19. Egg muffins 20. Leftover protein or lunch meat 21. 1/2 c blended cottage cheese or Guatemalan yogurt with dry ranch/Mrs. Dash/herb seasoning mix [...] are economical and optimized for taste by GreenSand - they are designed to make you [...] Likely WEIGHT LOSS documented in this encounter [facility] 12-01-2024 Discharge summary Note Date/Time December 01, 2024 2:35p m [facility] [address] [place] [address]. [address] [place] [address] / REHABILITATION SERVICES DISCHARGE SUMMARY MR#: [id number] Acct: [id number] Name: DO OLSON Rep #: [id number] : 1980 44 From: Harrison Smith PT, ATC Referring DrMala: Dr. Daryl Peralta MD Statu s: REG RCR Insurance: [employer] SELF PAY INSURANCE Patient Information Patient Information: [...] KYRA Padgett; Dr. Daryl Peralta MD ~ [facility] Signed [facility] Work Phone: 1(862) 385-507007-07-[address] [facility] Physical Therapy [address] [place] [address] / REHABILITATION SERVICES DISCHARGE SUMMARY MR#: [id number] Acct: [id number] Name: DO OLSON Rep #: [id number] : 1980 44 From: Harrison Smith PT, ATC Referring DrMala: Dr. Daryl Peralta MD Statu s: REG RCR Insurance: [employer] SELF PAY INSURANCE Patient Information Patient Information: [...] KYRA Padgett; Dr. Daryl Peralta MD ~ [facility] Signed [facility]05-02-2025 Evaluation note* Diagnosis Onset Date Resolution Status Admit Date Left carpal tunnel syndrome acute September 26, 2024 8:47am [facility] Work Phone: 1(199) 992-932905-01-2025 Instructions* Patient Instructions* Robyn Warner APRN.PRINTER ASSISTANT - 09/25/2024 3:47 PM EDT - Whole [...] oz is 28 gm protein Beef, Chicken, [place] Anthony, Pork, Eli 1 oz 7g Fish, Tuna [...] (not a meal replacement) Protein AND carbs Beef/Saint Anthony Jerky 1 oz dried 10-15g protein - [...] 8 oz -13g protein & 6g car Guatemalan yogurt Full Fat Guatemalan Yogurt 1 cup - 20.4g protein & 9.1g carb 2% Guatemalan Yogurt 1 cup - 22.7g protein & 9.1g carb 0% (fat-free) Guatemalan Yogurt - 1 cup 24g protein & 9.3g carb Aldi Protein Guatemalan yogurt single svg - 13/g15g protein & 7g carb Chobani Zero Sugar single svg: - 12g protein & 5g carb Dannon Guatemalan Light + Fit 1 single svg - 12g protein & 9g carb Oikos Pro single svg - 20g protein & 8g carb Oikos Triple Zero Guatemalan Nonfat Yogurt 1 single svg - 15g protein & 7g carb :ratio, KETO Friendly Dairy Snack 1 single svg - 15g protein & 2g carb :ratio Protein 1 single svg - 25g protein & 8g carb Two Good Lowfat Guatemalan Yogurt, [place], Lower Sugar - 12g protein & 2g carb Yoplait Protein 1 single svg 15g protein & 5g carb Dairy Free - [place] unsweetened Guatemalan almond/soy 15g protein & 3g carb Dairy [...] Cream Cheese 1.7g protein & 1.2g carb Staff [employer] whipped Guatemalan cream cheese (WM) 2 T 3g protein 2g carb Feta 4g protein & 1.2g carb Mozzarella 6.3g protein & 0.6g carb Parmesan 10g protein & 0.9g carb Nauruan 7.6g protein & 1.5g carb Cottage Cheese 1/2 c Breakstone 2% 13g protein 7g carb Nandini 2% 13g protein 5 g carb Good Culture 2% 14g protein 3g carb Patel s Low Fat 12g protein & 4g carb Legumes Lentils cup 9g protein & 20g carb Mcdonald beans cup 7g protein & 20g carb Kidney, Black, [place], Cannellini beans cup 8g protein & 20g carb Chickpeas 1/2 c 6g protein & 15g carb Soybeans 1/2 c 14g complete protein & 8.5g carb [place] milk, unsweetened 8 oz 1g protein & 2g carb Soy milk 8 oz 3.5g protein & 1.6g carb Tofu 1/2 cup 10g protein & 2.3g carb Peanut butter, natural 2 Tbsp 7-8g protein & 4g net carbs, 190 calories PB2 powder 2 Tbsp 6g protein & 5g carb Nuts and Seeds per oz Almonds - 5.9g protein & 6.1g carb [place] Nuts - 4.0g protein & 3.4g carb [...] Seeds - 6.9g protein & 5g carb Taliaferro Seeds - 5.8g protein & 5.6g carb Walnuts - 4.3g protein & 3.8g carb Edamame Beans (soybean) snack 1 pack 11 gm complete protein 2 carb 5 (FIVE) gram carb vegetable options 1 cup raw OR cup cooked: Asparagus Hernandez sprouts Beets Broccoli Brussel sprouts Cabbage Carrots Cauliflower Celery Marston Eggplant Green beans Lettuce Peppers Snap peas [...] High Protein Snack Ideas 1. Jerky 2. [place] mix without dried fruit 3. Saint Anthony roll-ups 4. Guatemalan yogurt 5. Veggies and yogurt dip 6. Tuna 7. Hard-boiled eggs 8. Peanut butter with celery 9. Cheese slices/ Cheese Stick 10. Handful of almonds, peanuts or walnuts 11. Cottage Cheese 12. Beef sticks 13. Protein bars 14. Canned [place] 15. Pumpkin seeds 16. Nut butter 17. Protein shake or protein bar 18. Avocado and chicken salad 19. Egg muffins 20. Leftover protein or lunch meat 21. 1/2 c blended cottage cheese or Guatemalan yogurt with dry ranch/Mrs. Dash/herb seasoning mix [...] are economical and optimized for taste by GreenSand - they are designed to make you [...] inflammation, Likely WEIGHT LOSS documented [facility] encounter[facility] History of Present illness Narrative* Robyn Warner APRN.ANMOL - 09/25/2024 3:30 PM EDT Some documentation [...] Diet (initial appointment): Awake - B - 629- - 30 gm protein shake or granola or fruit with coffee with with flavoring syrup and sweetened creamer. S - 10-0 pretzels or apple or veg or HB eggs L - 1200 if work - Salad or 1/2 sandwich or soup or pizza/home - protein shake and fruit or veg or yogurt and granola S - none D - 5598-3557 protein and veg and small carb - potato/pasta/corn/rice No dessert S - rare - popcorn or ice cream Fluids: water Bedtime - 6452-7077 Eating Disorder binge eating Dietary changes: B [...] reviewed with the patient. Outside labs: 12/27/2023 [facility] CBC WNL; CMP WNL; Hgba1c 5.0; Total [...] mg daily 3. 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 The patient is [...] Level: 4 - Moderate documented in this encounterAv[facility]05-01-2025 NoteHNO ID: [id number] Author: ROBYN WARNER APRN.CNP Service: ? Author [...] and granola S - none D - 7029-0524 protein and veg and small carb - potato/pasta/corn/rice No dessert S - rare - popcorn or ice cream Fluids: water Bedtime - 6448-2086 Eating Disorder binge eating Dietary changes: B [...] kg/m? Physical Exam Constitu (more content not included)...[facility] Evaluation note* Diagnosis Onset Date Resolution Status Admit Date Right hamstring injury acute [facility] 2024 1:43pm Right hamstring injury acute [facility] 2024 3:21pm Tear of right hamstring acute M arch 2024 3:21pm [facility] Work Phone: 1(531) 316-102203-10-2025 Evaluation note* Diagnosis Onset Date Resolution Status Admit Date Right hamstring injury acute [facility] 2024 1:43pm Right hamstring injury acute [facility] 2024 3:21pm Tear of right hamstring acute M arch 2024 3:21pm Left carpal tunnel syndrome acute September 26, 2024 8:47am [facility] Work Phone: 1(889) 506-253902-06-2025 Instructions* Patient Instructions* Robyn Warner APRN.PRINTER ASSISTANT - 07/03/2024 3:11 PM EST The Role of Exercise in Weight Management No one can deny the psychological and physical benefits of exercise. Regular physical exercise aidsin stress reduction, blood sugar control, cholesterol reduction, and improved sleep. It s also beneficial for weight control. both aerobic and strength training is beneficial for weight control. The ACSM ([employer] [employer]) advises 200-300 minutes [...] is beneficial for weight control. The ACSM ([employer]) advises 200-300 minutes of moderate-intensity exercise to lose weight and sustain the loss.Moderate-intensity exercises include brisk walking, jogging, using a rowing machine, or doing a 50-60 minute dance class. To chief gauger the level of intensity you should aim [...] person or at home) documented in this encounterAv[facility]02-06-2025 History of Present illness Narrative* Robyn Warner APRN.CNP - 07/03/2024 2:30 PM EST Some documentation [...] promoting medications: None Previous Diet (initial appointment): 629-11 - 30 gm protein shake or granola or fruit with coffee with with flavoring syrup and sweetened creamer. 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 No distress. Results: recent labs reviewed with the patient. Outside labs: 12/27/2023 [facility] CBC WNL; CMP WNL; Hgba1c 5.0; Total [...] mg daily 3. Stress incontinence - ICD9: [id number], ICD10: N39.3 - Whole food balanced protein [...] Level: 4 - Moderate documented in this encounterAv[facility]02-06-2025 NoteHNO ID: [id number] Author: ROBYN WARNER APRN.CNP Service: ? Author [...] and granola S - none D - 6429-1823 protein and veg and small carb - potato/pasta/corn/rice No dessert S - rare - popcorn or ice cream Fluids: water Bedtime - 2810-7225 Eating Disorder binge eating Dietary changes: B [...] reviewed with the patient. Outside labs: 12/27/2023 [facility] CBC WNL; CMP WNL; Hgba1c 5.0; Total Cho (more content not included)...[facility]01-14-2025 [facility] Medical Records Department [address] [place] [address] History Physical Exam 06/10/24 0717 MR#: [id number] Acct: [id number] Name: DO OLOSN KYA Rep #: [id number] : 1980 43 From: Eulogio Mello DO PCP: KYRA Riddle Status:[place] [facility] [place] Location: [place] [address] History and Physical Date of Admission: 06/10/24 [facility] [facility] [address] [place] [address] OFFICE VISIT Date of Service: 03/14/24 MR#: [id number] Acct: [id number] Name: DO OLSON Rep #: [id number] : 1980 Provider: Dr. Eulogio Mello DO Age/Sex: 43/F Location: [facility] Status: Signed Intake Vital Signs 12/11/2405:35 Height 5 ft 7 in Intake Visit Reasons: BL HANDS Accompanied by: Self Is patient in pain?: No Allergies No Known Allergies Allergy (Verified 03/14/24 09:19) Medications ???Medication ???Instructions ???Recorded ???Confirmed ???Type Lactobacillus 25 billion cap PO 11/29/21 03/14/24 History cell-Bifido 25 billion vyxx-IFU-crqgc capsule (Women's Probiotic) fexofenadine 180 mg tablet [...] service provided and the decisions made by , Dr. Eulogio Mello, DO 03/14/24 0809. Part [...] Bilateral carpal tunnel syndrome (more content not included)...[facility]11-19-2024 Telephone encounter Note* Telephone Encounter - Liliam Wong RN - 04/15/2024 11:33 AM EST Requested Prescriptions Pending Prescriptions Disp Refills fluconazole (DIFLUCAN) 150 mg tablet 1 tablet 1 Sig: Take 1 tablet by mouth one time only for 1 dose. Recent Office Visits - This Specialty 04/09/2024 Osteoarthritis of left knee, unspecified osteoarthritis type OB/Gynecology Warner, Robyn, BRIM STIFFENER.PRINTER ASSISTANT 02/13/2024 Osteoarthritis of left knee, unspecified osteoarthritis type OB/Gynecology Warner, Robyn, BRIM STIFFENER.PRINTER ASSISTANT 12/26/2023 Osteoarthritis of left knee, unspecified osteoarthritis type OB/Gynecology Warner, Robyn, BRIM STIFFENER.ANMOL Wong RN [facility]11-19-2024 Miscellaneous Notes* Telephone Encounter - Liliam Wong RN - 04/15/2024 11:33 AM EST Requested Prescriptions Pending Prescriptions Disp Refills fluconazole (DIFLUCAN) 150 mg tablet 1 tablet 1 Sig: Take 1 tablet by mouth one time only for 1 dose. Recent Office Visits - This Specialty 04/09/2024 Osteoarthritis of left knee, unspecified osteoarthritis type OB/Gynecology Warner, Robyn, BRIM STIFFENER.PRINTER ASSISTANT 02/13/2024 Osteoarthritis of left knee, unspecified osteoarthritis type OB/Gynecology Warner, Robyn, BRIM STIFFENER.PRINTER ASSISTANT 12/26/2023 Osteoarthritis of left knee, unspecified osteoarthritis type OB/Gynecology Warner, Robyn, BRIM STIFFENER.ANMOL Wong RN documented in this encounterAv[facility]11-[facility]24 Telephone encounter Note * Telephone Encounter - Linwood Wiseman RN - 04/15/2024 8:10 AM EST Last OV 04/09/2024. Requested Prescriptions Pending Prescriptions Disp Refills clotrimazole-betamethasone (LOTRISONE) cream 15 g 0 Sig: Apply 1 application to affected area two times a day. Linwood Wiseman RN [facility]11-19-2024 Miscellaneous Notes* Telephone Encounter - Linwood Wiseman RN - 04/15/2024 8:10 AM EST Last OV 04/09/2024. Requested Prescriptions Pending Prescriptions Disp Refills clotrimazole-betamethasone (LOTRISONE) cream 15 g 0 Sig: Apply 1 application to affected area two times a day. Linwood Wiseman RN documented in this encounterAv[facility]11-13-2024 Instructions* Patient Instructions* Robyn Warner APRN.PRINTER ASSISTANT - 04/09/2024 12:18 PM EST Try Premier [...] oz is 28 gm protein Beef, Chicken, [place], Pork, Eli 1 oz 7g Fish, Tuna [...] protein & 2 carb Protein AND carbs Beef/[place] Anthony Jerky 1 oz dried 10-15g protein - [...] oz - 8g protein & 12g carb Guatemalan yogurt Full Fat Guatemalan Yogurt 1 cup - 20.4g protein & 9.1g carb 2% Guatemalan Yogurt 1 cup - 22.7g protein & 9.1g carb 0% (fat-free) Guatemalan Yogurt - 1 cup 24g protein & 9.3g carb Aldi Protein Guatemalan yogurt single svg - 15g protein & 7g carb Chobani Zero Sugar single svg: - 12g protein & 5g carb Dannon Guatemalan Light + Fit 1 single svg - 12g protein & 9g carb Oikos Pro single svg - 20g protein & 8g carb Oikos Triple Zero Guatemalan Nonfat Yogurt 1 single svg - 15g protein & 7g carb :ratio, KETO Friendly Dairy Snack 1 single svg - 15g protein & 2g carb :ratio Protein 1 single svg - 25g protein & 8g carb Two Good Lowfat Guatemalan Yogurt, [place], Lower Sugar - 12g protein & 2g carb Yoplait Protein 1 single svg 15gm protein & 5gm carb Dairy Free - [place] unsweetened Guatemalan almond/soy 15 gm protein & 3 gm carb Dairy Free - True Goodness by Meibernarda coconut-based yogurt alternative 1 gm protein 1 gm net carb 180 phil Cheese each oz Brie 5.9g protein & 0.1g carb Cheddar 7g protein & 0.4g carb Delonte 6.7g protein & 0.7g carb Cream Cheese 1.7g protein & 1.2g carb Feta 4g protein & 1.2g carb Mozzarella 6.3g protein & 0.6g carb Parmesan 10g protein & 0.9g carb Nauruan 7.6g protein & 1.5g carb Cottage Cheese 1/2 c Breakstone 2% 13g protein 7g carb Nandini 2% 13g protein 5 g carb Good Culture 2% 14g protein 3g carb Patel s Low Fat 12g protein & 4g carb Legumes Lentils cup 9g protein & 20g carb Mcdonald beans cup 7g protein & 20g carb Kidney, Black, [place], Cannellini beans cup 8g protein & 20g carb Soybeans 1/2 c 14g complete protein & 8.5g carb [place] milk, unsweetened 8 oz 1g protein & 2g carb Soy milk 8 oz 3.5g protein & 1.6g carb Tofu 1/2 cup 10g protein & 2.3g carb Peanut butter, natural 2 Tbsp 7-8g protein & 4g net carbs, 190 calories PB2 powder 2 Tbsp 6g protein & 5g carb Nuts and Seeds per oz Almonds - 5.9g protein & 6.1g carb [place] Nuts - 4.0g protein & 3.4g carb [...] Seeds - 6.9g protein & 5g carb Taliaferro Seeds - 5.8g protein & 5.6g carb Walnuts - 4.3g protein & 3.8g carb Edamame Beans (soybean) snack 1 pack 11 gm complete protein 2 carb 5 (FIVE) gram carb vegetable options 1 cup raw OR cup cooked: Asparagus Hernandez sprouts Beets Broccoli Brussel sprouts Cabbage Carrots Cauliflower Celery Marston Eggplant Green beans Lettuce Peppers Snap peas [...] High Protein Snack Ideas 1. Jerky 2. [place] mix without dried fruit 3. [place] Anthony roll-ups 4. Guatemalan yogurt 5. Veggies and yogurt dip 6. Tuna 7. Hard-boiled eggs 8. Peanut butter with celery 9. Cheese slices/ Cheese Stick 10. Handful of almonds, peanuts or walnuts 11. Cottage Cheese 12. Beef sticks 13. Protein bars 14. Canned [place] 15. Pumpkin seeds 16. Nut butter 17. Protein shakes 18. Avocado and chicken salad 19. Egg muffins 20. Leftover protein or lunch meat 21. 1/2 c blended cottage cheese or Guatemalan yogurt with dry ranch/Mrs. 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 No distress. Results: recent labs reviewed with the patient. Outside labs: 12/27/2023 [facility] CBC WNL; CMP WNL; Hgba1c 5.0; Total [...] mg daily 3. Stress incontinence - ICD9: [id number], ICD10: N39.3 - Whole food balanced protein [...] Level: 4 - Moderate documented in this encounterAvita [facility]11-13-2024 NoteHNO ID: [id number] Author: ROBYN WARNER APRN.ANMOL Service: ? Author Type: Nurse Practitioner [...] and granola S - none D - 5855-0221 protein and veg and small carb - potato/pasta/corn/rice No dessert S - rare - popcorn or ice cream Fluids: water Bedtime - 7117-9538 Eating Disorder binge eating Dietary changes: B [...] 50:; TSH 0.52 9 (more content not included)...[facility]09-18-[facility] Instructions* Patient Instructions* Robyn Warner APRN.[facility] - 02/13/2024 8:11 AM EDT - [...] oz is 28 gm protein Beef, Chicken, [place], Pork, Eli 1 oz 7g Fish, Tuna [...] protein & 2 carb Protein AND carbs Beef/[place] Anthony Jerky 1 oz dried 10-15g protein - check carb count, can be high if sugar added Slim Devante - 6 gm protein and 4 net carb Great Value original turkey sausage sticks - 7 gm protein and 2 gm carb Monica [employer] Hung (at [facility]) Original smoked sausage sticks - 8 gm protein and 0 carb Imitation Crab Meat 1 oz - 2g protein & 4g carb Milk, skim 2% or 1% 8 oz - 8g protein & 12g carb Guatemalan yogurt Full Fat Guatemalan Yogurt 1 cup - 20.4g protein & 9.1g carb 2% Guatemalan Yogurt 1 cup - 22.7g protein & 9.1g carb 0% (fat-free) Guatemalan Yogurt - 1 cup 24g protein & 9.3g carb Aldi Protein Guatemalan yogurt single svg - 15g protein & 7g carb Chobani Zero Sugar single svg: - 11g protein & 5g carb Dannon Light + Fit 1 single svg - 12g protein & 9g carb Oikos Pro single svg - 20g protein & 8g carb Oikos Triple Zero Guatemalan Nonfat Yogurt 1 single svg - 15g protein & 7g carb :ratio, KETO Friendly Dairy Snack 1 single svg - 15g protein & 2g carb :ratio Protein 1 single svg - 25g protein & 8g carb Two Good Lowfat Guatemalan Yogurt, [place], Lower Sugar - 12g protein & 2g carb Yoplait Protein 1 single svg 15gm protein & 5gm carb Dairy Free - [place] 15 gm protein & 4 gm carb Cheese each oz Brie 5.9g protein & 0.1g carb Cheddar Cheese 7g protein & 0.4g carb Mozzarella Cheese 6.3g protein & 0.6g carb Delonte Cheese 6.7g protein & 0.7g carb Parmesan Cheese 10g protein & 0.9g carb Cream Cheese 1.7g protein & 1.2g carb Feta 4g protein & 1.2g carb Nauruan Cheese 7.6g protein & 1.5g carb Patel s Low Fat Cottage Cheese 1/2cup 12g protein & 4g carb Legumes Lentils cup 9g protein & 20g carb Mcdonald beans cup 7g protein & 20g carb Kidney, Black, [place], Cannellini beans cup 8g protein & 20g carb Soybeans 1/2 c 14g complete protein & 8.5g carb [place] milk, unsweetened 8 oz 1g protein & 2g carb Soy milk 8 oz 3.5g protein & 1.6g carb Tofu 1/2 cup 10g protein & 2.3g carb Peanut butter, natural 2 Tbsp 7-8g protein & 4g net carbs, 190 calories PB2 powder 2 Tbsp 6g protein & 5g carb Nuts and Seeds per oz Almonds - 5.9g protein & 6.1g carb [place] Nuts - 4.0g protein & 3.4g carb [...] Seeds - 6.9g protein & 5g carb Taliaferro Seeds - 5.8g protein & 5.6g carb [...] Broccoli Brussel sprouts Cabbage Carrots Cauliflower Celery Marston Eggplant Green beans Lettuce Peppers Snap peas [...] High Protein Snack Ideas 1. Jerky 2. [place] mix without dried fruit 3. [place] Anthony roll-ups 4. Guatemalan yogurt 5. Veggies and yogurt dip 6. Tuna 7. Hard-boiled eggs 8. Peanut butter with celery 9. Cheese slices/ Cheese Stick 10. Handful of almonds, peanuts or walnuts 11. Cottage Cheese 12. Beef sticks 13. Protein bars 14. Canned [place] 15. Pumpkin seeds 16. Nut butter 17. [...] crushed nuts and freeze documented in this encounterAvita [facility]09-18-[facility]24 History of Present illness Narrative* Robyn [...] None Previous Diet (initial appointment): Awake - 530 B - 0630-7 - 30 gm protein shake or granola or fruit with coffee with with flavoring syrup and sweetened creamer. 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 No distress. Results: recent labs reviewed with the patient. Outside labs: 12/27/2023 [facility] CBC WNL; CMP WNL; Hgba1c 5.0; Total [...] mg daily 3. Stress incontinence - ICD9: [id number], ICD10: N39.3 - benefits of weight loss [...] treatment plan. Follow up in 8 weeks Robny Warner CNP Advanced Education from the Obesity [employer] Association Medical Decision Making: Problems: Moderate: 2+ stable chronic illnesses and 1+ chronic illnesses with change Risk: Moderate: Drug management and Moderate risk from testing/treatment Medical Decision Making Level: 4 - Moderate documented in this encounterAvita [facility]09-18-2024 NoteHNO ID: [id number] Author: ROBYN WARNER APRN.CNP Service: ? 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 Physical Exam Constitutional: She appears healthy. No distress. Results: recent labs reviewed with the patient. Outside labs: 12/27/2023 [facility] CBC WNL; CMP WNL; Hgba1c 5.0; Total Chol 159: HDL 75: LDL 74: TG 50:; TSH 0.52; 01/2023 - CBC, lipids, CBC WNL 09/26/2023 Hgba1c 5.0 Anti-Obesity Medications >Phentermine: No uncontrolled HTN, No CVD Hx or hx of seizure disorder. No MAO (more content notincluded)...[facility]09-10-[facility] Note* Letter - Coordinator, Mammography - 02/05/2024 6:25 AM EDT February 06, 2024 PID: [id number] Do Olson [address] [place] [address] Dear Ms. Olson, We are pleased to [...] report will be kept on [facility] at [facility] as part of your permanent medical record and are available for your continuing care. Thank you for allowing us to help in meeting your health care needs. Sincerely, Dr. Valdovinos Interpreting Radiologist [facility] (Normal over 40) [facility]09-10-2024 Miscellaneous Notes* Letter - Coordinator, Mammography - 02/05/2024 6:25 AM EDT February 06, 2024 PID: [id number] Do Olson [address] [place] [address] Dear Ms. Olson, We are pleased to [...] report will be kept on file at [facility] as part of your permanent medical record and are available for your continuing care. Thank you for allowing us to help in meeting your health care needs. Sincerely, Dr. Valdovinos Interpreting Radiologist [facility] (Normal over 40) documented in this encounterAvita Health [facility]09-06-[facility]24 History of Present illness Narrative* Carolin Panda, RT(R) - 02/01/2024 1:10 PM EDT Radiology [...] PATIENT PRESENTS WITH AN IMPLANTABLE OR ATTACHED GASKET MAKER: No RADIOLOGY DEPARTMENT: Mammography PERIPHERAL IV DATA: Not applicable SIGNED BY: RT Sobeida(R) February 01, 2024 12:52 PM documented in this encounterAvita Health System [facility]09-06-2024 NoteHNO ID: [id number] Author: CAROLIN PANDA RT(Fely) Service: ? Author Type: Technologist Type: Progress [...] PATIENT PRESENTS WITH AN IMPLANTABLE OR ATTACHED GASKET MAKER: No RADIOLOGY DEPARTMENT: Mammography PERIPHERAL IV DATA: Not applicable SIGNED BY: RT Sobeida(R) February 01, 2024 12:52 [facility]08-26-2024 Telephone encounter Note* Telephone Encounter - Liliam Wong RN - 01/21/2024 9:15 AM EDT Please file new Mamm with RJ order. Unable to link the order placed on 11/23/23. Liliam Wong RN [facility]08-26-2024 Miscellaneous Notes* Telephone Encounter - Liliam Wong RN - 01/21/2024 9:15 AM EDT Please file new Mamm with RJ order. Unable to link the order placed on 11/23/23. Liliam Wong RN * Telephone Encounter - Veronica Duff Mammo Tech - 01/21/2024 7:54 AM EDT Could we have a mammorgram order? Pt has appt with us 01/31, Thanks a million documented in this encounterAvita Health System [facility]08-26-2024 Telephone encounter Note * Telephone Encounter - Veronica Duff Mammo Tech - 01/21/2024 7:54 AM EDT Could we have a mammorgram order? Pt has appt with us 01/31, Thanks a million [facility]20[facility] History of Present illness Narrative* Robyn Warner APRN.PRINTER ASSISTANT - 12/25/2023 12:21 PM EDT Images from [...] lbs WEIGHT GRAPH: Diet/Nutrition overview: Awake - 50530 B - 0630-7 - 30 gm protein shake or granola or fruit with coffee with with flavoring syrup and sweetened creamer. S - 10-1030 pretzels or apple or veg or HB eggs L - 1200 if work - Salad or 1/2 sandwich or soup or pizza/home - protein shake and fruit or veg or yogurt and granola S - none D - 3545-1781 protein and veg and small carb - potato/pasta/corn/rice No dessert S - rare - popcorn or ice cream Fluids: water Bedtime - 9485-9726 Quality of diet: 24hr recall suggests healthy diet. Characterization of diet:Structured and cravings. Splicing Machine Operator of impaired eating habits:Prior to tirzepatide - [...] Onset Hypertension Mother Hypertension Father Heart Father [place] Cancer Sister melanoma Heart Maternal Grandmother COPD [...] mg daily 3. Stress incontinence - ICD9: [id number], ICD10: N39.3 - benefits of weight loss [...] CMP, Lipids, TSH and HgbA1c faxed to [facility] -- We discussed several strategies to track [...] resistancetraining and cardiovascular exercise is the best termite exterminator plan. An overall goal of 150-200 minutesper [...] which included preparing to see the patient, exvu-ij-apdg patient care, completing clinical documentation, obtaining and/or reviewing separately obtained history, performing a medically appropriate examination, counseling and educating the pat ient/family/caregiver, and ordering medications, tests, or procedures. documented in this encounterAvita Health System Bucyrus Hospital2024 Instructions* Patient Instructions* Robyn Warner APRN.CNP - 12/25/2023 12:21 PM EDT Images from [...] slots. This should not be done [facility] as you will not be scheduled appropriately and will need to be rescheduled. We appreciate that you have entrusted us with your health and know that we are committed to this process with you. Sincerely, Evelin Rm MD, MARLEN, SAMUEL & Robyn Warner CNP Advanced Education from the Obesity Medicine Association Obesity Obesity is a disease that affects nearly one-third of the adult [place] population (approximately 60 million). The number of overweight and obese Americans has continued to increase since 1960, a trend that is not slowing down. Today, 64.5 percent of adult Americans (about 127 million) are categorized as being overweight or obese. Each year, obesity causes at least 300,000 excess deaths in the [place] and healthcare costs of [place] adults with obesity amount to approximately $100 [...] the gallbladder, breast, uterus, cervix, or ovaries https://my.[facility]/health/diseases/11471-tehguv-vsgugobeqj-oscbzws-c ducation - Eat primarily whole foods. Limit [...] and granola S - none D - 6496-2238 protein and veg and small carb - potato/pasta/corn/rice No dessert S - rare - popcorn or ice cream - if you eat, add protein Protein - no carbs Egg 1 large - 6g Egg white 1 large 3.6g 3 oz is approximately the size of a deck of cards and equals 21 g protein so 4 oz is 28 gm protein Beef, Chicken, [place], Pork, Eli 1 oz 7g Fish, Tuna [...] protein & 2 carb Protein AND carbs Beef/[place] Jerky 1 oz dried 10-15g protein - [...] oz - 8g protein & 12g carb Guatemalan yogurt Full Fat [place] Yogurt 1 cup - 20.4g protein & 9.1g carb 2% Guatem[place] Yogurt 1 cup - 22.7g protein & 9.1g carb 0% (fat-free) Guatemalan Yogurt - 1 cup 24g protein & 9.3g carb Aldi Protein Guatem[place] yogurt single svg - 15g protein & 7g carb Chobani Zero Sugar single svg: - 11g protein & 5g carb Dannon Light + Fit 1 single svg - 12g protein & 9g carb Oikos Pro single svg - 20g protein & 8g carb Oikos Triple Zero Guatemalan Nonfat Yogurt 1 single svg - 15g protein & 7g carb :ratio, KETO Friendly Dairy Snack 1 single svg - 15g protein & 2g carb :ratio Protein 1 single svg - 25g protein & 8g carb Two Good Lowfat [place] Yogurt, [place], Lower Sugar - 12g protein & 2g [...] carb Feta 4g protein & 1.2g carb Nauruan Cheese 7.6g protein & 1.5g carb Patel s Low Fat Cottage Cheese 1/2cup 12g protein & 4g carb Legumes Lentils cup 9g protein & 20g carb Mcdonald beans cup 7g protein & 20g carb Kidney, Black, [place], Cannellini beans cup 8g protein & 20g carb Soybeans 1/2 c 14g complete protein & 8.5g carb [place] milk, unsweetened 8 oz 1g protein & 2g carb Soy milk 8 oz 3.5g protein & 1.6g carb Tofu 1/2 cup 10g protein & 2.3g carb Peanut butter, natural 2 Tbsp 7-8g protein & 4g net carbs, 190 calories PB2 powder 2 Tbsp 6g protein & 5g carb Nuts and Seeds per oz Almonds - 5.9g protein & 6.1g carb [place] Nuts - 4.0g protein & 3.4g carb [...] Seeds - 6.9g protein & 5g carb Taliaferro Seeds - 5.8g protein & 5.6g carb [...] Broccoli Brussel sprouts Cabbage Carrots Cauliflower Celery [place]ston Eggplant Green beans Lettuce Peppers Snap peas [...] High Protein Snack Ideas 1. Jerky 2. [place] mix without dried fruit 3. [place] roll-ups 4. Guatemalan yogurt 5. Veggies and yogurt dip 6. Tuna 7. Hard-boiled eggs 8. Peanut butter with celery 9. Cheese slices/ Cheese Stick 10. Handful of almonds, peanuts or walnuts 11. Cottage Cheese 12. Beef sticks 13. Protein bars 14. Canned [place] 15. Pumpkin seeds 16. Nut butter 17. [...] understood. Topiramate affects body mass index, fasting eziqfrh-sl-eqieyyc ratio, and serum leptin and cortisol levels. [...] at or call local emergency services at 511. What other information should I know? Keep all appointments with your doctor and the laboratory. Do not let anyone else take your medication. Topiramate use needs to be monitored closely. Prescriptions may be refilled only a limited number of times. Keep a written list of all of your prescription and nonprescription (lfms-wus-lsncltq) medicines, in addition to vitamins, minerals, or [...] for a missed one. Sources Pubmed Health: http://www.ncbi.nlm.nih.gov/pubmedhealth/BXA1592889/ Drugs.com http://www.drugs.com/pro/topiramate.html METFORMIN Dosing -- Begin Metformin [...] (nih.gov) Is metformin a wonder drug? - [facility] Common side effects of this medication [...] FOR YOUR WEIGHT LOSS PLAN Per updated [place] state rules, initially, a one month supply [...] aware of the following statements per the [facility] pharmacy board rules. 1. Timely [...] Phentermine was approved by the FDA in 1958 for short term weight loss. It works [...] at or call local emergency services at 657. What other information should I know? Keep all appointments with your doctor and the laboratory. Do not let anyone else take your medication. Phentermine is a controlled substance. It is FDA approved for up to 3 months. Prescriptions may be refilled only a limited number of times. Keep a written list of all of your prescription and nonprescription (zanf-wqe-etdvaew) medicines, in addition to vitamins, minerals, or [...] up for a missed one. Sources [facility] Consumer Medication Info: http://www.ncbi.nlm.nih.gov/pubmedhealth/NZC0407608/ AMA patient handouts: http://www.amaassn.org/ama1/pub/upload/mm/433/phrxsurgery.pdf Drugs.com: http://www.drugs.com/pro/phentermine.html I [...] water to avoid this. documented in this encounterAvita Health System [facility]06-28-2024 Instructions* Patient Instructions* Robyn Warner APRN.CNP - 11/23/2023 7:29 AM EDT How To [...] agents from your environment. 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 Added automatically from request for surgery [id number] Last Assessment & Plan: fib Gestational diabetes PVC (premature ventricular contraction) PAST SURGICAL HISTORY Procedure Laterality Date ESSURE EXT HYSTERECTOMY,W/PARTIAL VAGINECTO 2016 Ovaries bilaterally intact EXTRACTION, ERUPTED TOOTH OR EXPOSED ROOT (ELEVATION AND/OR FORCEPS REMOVAL) wisdom teeth IMPLANTS breast FAMILY HISTORY Problem Relation Age of Onset Hypertension Mother Hypertension Father Heart Father NH Cancer Sister melanoma Heart Maternal Grandmother COPD [...] external genitalia normal, normal Bartholin's glands, urethra, [place]'s glands, no vulvar lesions, physiologic discharge present, [...] exams reviewed. 2. Stress incontinence - ICD9: [id number], ICD10: N39.3 - Discussed Kegel exercises and given written instruction. 3. History of obesity - ICD9: V12.29, ICD10: Z86.39 - Class 1 obesity with BMI 33.4 - 56 lb weight loss with Mounjaro prescribed by PCP, paying akk-zb-xhojcj. Questions about maintenance medications that are less expensive 4) Contraception: hysterectomy. . 5) STD screening: Declined STD check. 6) Follow up one year or sooner as needed Robyn Warner APRN.CNP documented in this encounterAvita Health System [facility]06-19-2024 Telephone encounter Note * Telephone Encounter - Carolyn Dumas APRN.CNP - 11/14/2023 9:34 AM EDT Refill sent. Recommend appointment if itching persists. Carolyn Dumas APRN.CNP [facility]06-19-2024 Miscellaneous Notes* Telephone Encounter - Carolyn Dumas APRN.CNP - 11/14/2023 9:34 AM EDT Refill sent. Recommend appointment if itching persists. Carolyn Dumas APRN.CNP documented in this encounterAvita Health System [facility]05-07-2024 Instructions* Patient Instructions* Robyn Warner APRN.PRINTER ASSISTANT - 10/02/2023 11:49 AM EDT Silicone based [...] health-related concerns, consult your physician or other health-home health care coordinator. Being sexually active contributes to physical and [...] Diana Davey, PhD, and Eulogio Smith, PhD (FlixChip, 2009) Two sex therapists give guidance on evaluating your sexual history, exploring your body through touch, overcoming fear of orgasm, exploring ways to trigger orgasm, and more Reclaiming Desire: 4 [place] to Finding Your Lost Libido Jovanny Vivar MD, and Cookie Marie, PhD (Renu, 2004) Practical advice for the woman who has lost her sex drive and wants to find it again. When Sex Isn t Good: Stories & Solutions of Women With Sexual Dysfunction April Nava EdD, and Debra Vivar (Yobani Vivar MD, medical affairs leader) (iUniverse, 2007) A profile of a variety of women s sexual health issues written so that readers can learn from the experiences of others Below are other useful resources. The first few list reputable websites that sell lubricants, dilators, and videos: www.TheOfficialBoard.TouchPal www.sinclairFeedMagnet.TouchPal www.pureromance.TouchPal www.soulsourceenterprises.TouchPal www.Coco Controllercleanlove.TouchPal www.tantra.com www.aasect.org [place] Association of Sexuality Educators, Counselors, and Therapists Nonprofit professional association of sex educators, sex counselors, and sex therapists. You can search its website for a list of therapists in your area www.SurveySnapology.TouchPal Also lists certified sexual therapists http://isswsh.org International Society for the Study of Women s Sexual Health Professional association website featuring an extensive directory of books on female sexual health, including many for lay readers. Also provides a searchable directory of sex therapists by geographic area. Www.kinseyinstitute.org The [place] InstituteWebsite of this pioneering sexuality and research center at [facility] features collections of podcasts ( Dot Confidential and Conversations About Sex Research ), some of which address sex and menopause. And remember that your brain is your most powerful sexual organ. With the right attitude about yoursexuality and some responsible choices about your health, your body can give you pleasure for yearsand years. Take care of it and enjoy! Elvi perez documented in this encounterAvita Health System [facility]05-07-2024 History of Present illness Narrative* Robyn Warner APRN.PRINTER ASSISTANT - 10/02/2023 11:31 AM EDT Do Olson [...] PCP ordered hormone levels - 09/26/2023 labs [facility] FSH, LH, estradiol - not postmenopausal. Slightly decreased testosterone: sex-binding hormone normal. 01/2023 normal TSH. Vit D and CBC. OB History T0 L2 SAB0 IAB0 Ectopic0 Multiple0 Live Births0 Male Impersonator History LMP: 02/25/2017, Hysterectomy Age at Menarche: Age at First : Age at Menopause: Male Impersonator History Comments: Sexual Activity: Yes; Male; hysterectomy Contraception: Surgical PAST MEDICAL HISTORY Diagnosis Date Gestational diabetes PVC (premature ventricular contraction) PAST SURGICAL HISTORY Procedure Laterality Date ESSURE EXT HYSTERECTOMY,W/PARTIAL VAGINECTO 2016 Ovaries bilaterally intact EXTRACTION, ERUPTED TOOTH OR EXPOSED ROOT (ELEVATION AND/OR FORCEPS REMOVAL) wisdom teeth IMPLANTS breast FAMILY HISTORY Problem Relation Age of Onset Hypertension Mother Hypertension Father Heart Father NH Cancer Sister melanoma Heart Maternal Grandmother COPD [...] CBC. - Discussed sleep hygiene. Robyn Warner APRN.PRINTER ASSISTANT I spent a total of 25 minutes on the date of the service which included preparing to see the patient, hcph-bs-zozi patient care, completing clinical documentation, obtaining and/or reviewing separately obtained history, performing a medically appropriate examination, counseling and educating the pat ient/family/caregiver, independently interpreting results (not separately reported), and communicating results to the patient/family/caregiver. documented in this encounterAvita Health System [facility]08-15-2023 Miscellaneous Notes* Telephone Encounter - Meenu Plascencia LPN - 01/09/2023 7:33 AM EDT Order signed and faxed to [facility]. Meenu Plascencia LPN * Telephone Encounter - Liliam Wong RN - 01/08/2023 10:07 AM EDT [facility] radiology order on AG's desk to sign. documented in this encounterAvita Health System Bucyrus Hospital12-07-2022 History of Present illness Narrative* Robyn Warner APRN.[facility] - 05/03/2022 7:[address] offered: Patient declines. Do Olson is a 41 year old female who presents for intermittent burning and itching mostly at vaginal opening for about 5 weeks. Symptoms on and off for at least a year - she self-treated for yeast. Has a bottle of Diflucan from previous certifier that she uses. States had hysterectomy for [...] external genitalia normal, normal Bartholin's glands, urethra, [place]'s glands, no vulvar lesions, small amount white [...] Level: 4 - Moderate documented in this encounterAvita Health System Bucyrus Hospital12-01-2022 Miscellaneous Notes* Telephone Encounter - Desi Chavez RN - 04/27/2022 11:43 AM EST Left message that rx was sent to pharmacy. Desi Chavez RN * Telephone Encounter - Robyn Warner APRN.CNP - 04/27/2022 11:09 AM EST Diflucan sent to pharmacy. If itching continues after 3 days, she will need to be evaluated in the office. BVC negative 04/18/2022. Robyn Warner APRN.CNP * Telephone Encounter - Meenu Plascencia LPN [...] problems. Meenu Plascencia LPN documented in this encounterAvita Health System Bu[facility] Hospital11-22-2022 Instructions* Patient Instructions* Robyn Warner APRN.CNP - 04/18/2022 3:47 PM EST Minimizing irritation [...] avoid scratching at night. documented in this encounterAvita Health System Bucyrus Hospital11-22-2022 History of Present illness Narrative* Robyn [...] Unprotected. History of HPV. History of hysterectomy 2017. Ovaries remain intact. Tide for laundry. Does use dryer sheets. Oil of Olay body wash. Vagisil feminine wash. Wears mostlyleggings. OB History T0 L2 SAB0 IAB0 Ectopic0 Multiple0 Live Births0 Male Impersonator History LMP: 02/25/2017, Having periods Age at Menarche: Age at First : Age at Menopause: Male Impersonator History Comments: Sexual Activity: Yes; Male; hysterectomy Contraception: Surgical PAST MEDICAL HISTORY Diagnosis Date Gestational diabetes PAST SURGICAL HISTORY Procedure Laterality Date ESSURE EXT HYSTERECTOMY,W/PARTIAL VAGINECTO 2016 Ovaries bilaterally intact EXTRACTION, ERUPTED TOOTH OR EXPOSED ROOT (ELEVATION AND/OR FORCEPS REMOVAL) wisdom teeth IMPLANTS breast FAMILY HISTORY Problem Relation Age of Onset Hypertension Mother Hypertension Father Heart Father NH Cancer Sister melanoma Heart Maternal Grandmother COPD [...] external genitalia normal, normal Bartholin's glands, urethra, [place]'s glands, no vulvar lesions, small amount white [...] results. Follow- up as needed. Robyn Warner APRN.CNP Medical Decision Making: Problems: Low: Acute, uncomplicated illness or injury Data: Unique test(s) ordered: 2 Medical Decision Making Level: 3 - Low documented in this encounterAvita Health System [facility]05-28-2021 History of Present illness Narrative* Shahla Castañeda MD - 10/22/2020 8:30 AM EDT POSTOPERATIVE VISIT 10/22/2020 Do Olson 1980 DOS (operation): 10/05/2020 FACILITY: [facility] PROCEDURE: Right breast open excisional biopsy BRIEF ONCOLOGIC/BREAST HISTORY: She underwent baseline screening mammogram on 08/13/2020 at [facility] which was given a BIRADS 0 for an asymmetry in the upper right breast, posterior depth. She underwent diagnostic bilateral mammogram and targeted right breast ultrasound on 08/19/2020 at [facility] radiology which was given a BIRADS III for her mammographic asymmetry which was located atthe 2 o'clock position. There was no ultrasound correlate identified. She underwent further evaluation with bilateral breast MRI at [facility] 08/24/2020 which identified a 2 x 1.1 x 1.2 cm mass at the2 o'clock position, 7 cm from the nipple and was given a BI-RADS 4A. Second look ultrasound at [facility] revealed a 1.8 x 0.8 x 1.4 cm oval circumscribed mass at the 2:00 zone B/C position. Ultrasound-guided core needle biopsy was performed 08/27/2020. Biopsy pathology demonstrated a fibroepithelial lesion. She was treated with right breast open excisional biopsy 10/05/2020 at [facility].Surgical pathology demonstrated a fibroadenoma. At her [...] ultrasound- guided localization,;Surgeon: Shahla Castañeda MD; Location: [facility] Main OR; Service: General Surgery COSMETIC SURGERY HYSTERECTOMY 04/2017 [place] ENLARGE BREAST US BREAST BIOPSY RIGHT Right [...] questions. Shahla Castañeda MD Breast Surgical Oncology [facility] Office Office CC: CARE TEAM Patient Care Team: Ana Maria Baker MD as PCP - General (Internal Medicine) Robyn Bergeron RN as Patient Navigator documented in this [id number] Miscellaneous Notes* Assessment & Plan Note - [...] No acute complaints today documented in this [id number] History of Present illness Narrative* Ana Maria [...] Patient wasthen referred to breast clinic in [place] where Dr. Castañeda performed biopsy on 08/27/2020. [...] BIOPSY Right 08/27/2020 COSMETIC SURGERY HYSTERECTOMY 04/2017 [place] ENLARGE BREAST US BREAST BIOPSY RIGHT Right [...] Ana Maria Baker MD documented in this [id number] History of Present illness Narrative* Shahla Castañeda MD - 09/15/2020 8:00 AM EDT Date of Service: 09/15/20 Patient Name: Do Olson MR #: [id number] : 1980 Physicians: Ana Maria Baker MD [...] baseline screening mammogram on 08/13/2020 at the [facility] which was given a BIRADS 0 for an asymmetry in the upper right breast, posterior depth. She underwent diagnostic bilateral mammogram and targeted right breast ultrasound on 08/19/2020 at [facility] which was given a BIRADS III for her mammographic asymmetry which was located atthe 2 o'clock position. There was no ultrasound correlate identified. She underwent further evaluation with bilateral breast MRI at [facility] 08/24/2020 which identified a 2 x 1.1 x 1.2 cm mass at the2 o'clock position, 7 cm from the nipple and was given a BI-RADS 4A. Second look ultrasound at [facility] revealed a 1.8 x 0.8 x 1.4 cm oval circumscribed mass at the 2:00 zone B/C position. Ultrasound-guided core needle biopsy was performed 08/27/2020. Biopsy pathology demonstrated a fibroepithelial lesion. BREAST CANCER RISK FACTORS/NIGHT TIME NANNY Hx: Oral Control: Yes, in past Hormone [...] Date Abnormal mammogram Breast pain Gestational diabetes 2011 Right shoulder pain 06/10/2015 PSH: Past Surgical History: Procedure Laterality Date COSMETIC SURGERY HYSTERECTOMY 04/2017 [place] ENLARGE BREAST US BREAST BIOPSY RIGHT Right [...] further surgery or procedures. 6. We discussed [facility]'s preoperative COVID-19 testing policy. She understands that [...] minutes on this encounter today which includes rytg-px-uonw time with the patient, time reviewing the chart, and time spent documenting the encounter. It is always a privilege to take care of your patients. Please do not hesitate to call me with any questions. Shahla Castañeda MD Breast Surgical Oncology [facility] Office Office CC: Patient Care Team: Ana Maria Baker MD as PCP - General (Internal Medicine) Robyn Bergeron RN as Patient Navigator documented in this [id number] History of Present illness Narrative* Cayla Hernandez PTA - 08/10/2020 7:00 AM EDT [facility] TREATMENT NOTE Today's Date [...] OTHER Notes visit 3: 7:10-7:40 Therapeutic Exercise (61372) Parameters ER doorway stretch 3x20 Intervention cane [...] Intervention biceps curls GTT x10 Manual Therapy (63713) Intervention radial head mobs x5 mins Parameters [...] pain control Cayla Hernandez PTA STATE LICENSE, [id number] documented in this [id number] History of Past illness Narrative* Problem Noted Date Resolved Date Pain in right shoulder 06/10/2015 9 Overview: Been having it for the past 3 months. When she lifts her shoulder above 90 is starts to hurt her. She is active in the gym. At least 3 days a week does the elliptical or treadmill, pu[place] twist etc. Did not lift anything and not injury. But is not very sure about the that. Last Assessment & Plan: Been having it for the past 3 months. When she lifts her shoulder above 90 is starts to hurt her. She is active in the gym. At least 3 days a week does the elliptical or treadmill, [place] twist etc. Did not lift anything and not injury. But is not very sure about the that. documented as of this encounter (statuses as of 04/18/2022) [facility]01-14-2016 History of Past illness Narrative* Problem Noted Date Resolved Date Pain in right shoulder 06/10/2015 9 Overview: Been having it for the past 3 months. When she lifts her shoulder above 90 is starts to hurt her. She is active in the gym. At least 3 days a week does the elliptical or treadmill, [place] twist etc. Did not lift anything and not injury. But is not very sure about the that. Last Assessment & Plan: Been having it for the past 3 months. When she lifts her shoulder above 90 is starts to hurt her. She is active in the gym. At least 3 days a week does the elliptical or treadmill, [place] twist etc. Did not lift anything and not injury. But is not very sure about the that. documented as of this encounter (statuses as of 04/27/2022) [facility]01-14[facility]2016 History of Past illness Narrative* Problem Noted Date Resolved Date Pain in right shoulder 06/10/2015 9 Overview: Been having it for the past 3 months. When she lifts her shoulder above 90 is starts to hurt her. She is active in the gym. At least 3 days a week does the elliptical or treadmill, [place] twist etc. Did not lift anything and not injury. But is not very sure about the that. Last Assessment & Plan: Been having it for the past 3 months. When she lifts her shoulder above 90 is starts to hurt her. She is active in the gym. At least 3 days a week does the elliptical or treadmill, pu[place] twist etc. Did not lift anything and not injury. But is not very sure about the that. documented as of this encounter (statuses as of 05/03/2022) [facility]01[facility] History of Past illness Narrative* Problem Noted Date Diagnosed Date Resolved Date Pain in right shoulder 06/10/201509/18 Overview: Been having it for the past 3 months. When she lifts her shoulder above 90 is starts to hurt her. She is active in the gym. At least 3 days a week does the elliptical or treadmill, pu[place] twist etc. Did not lift anything and not injury. But is not very sure about the that. Last Assessment & Plan: Been having it for the past 3 months. When she lifts her shoulder above 90 is starts to hurt her. She is active in the gym. At least 3 days a week does the elliptical or treadmill, pu[place] twist etc. Did not lift anything and not injury. But is not very sure about the that. documented as of this encounter (statuses as of 01/09/2023) [facility] Neoplasm of uncertain behavior [...] in female- Primary [facility] Diagnosis Situational anxiety- Primary documented in this encounter [facility]* Diagnosis Vaginal itching- Primary Pruritus of genital organs [facility] Diagnosis Occupational exposure to COVID-19 virus- Primary [facility] Diagnosis Onset Date Resolution Status Left knee pain acute Back pain acute Segmental and somatic dysfunction of lumbar region acute Segmental and somatic dysfunction of pelvic region acute Segmental and somatic dysfunction of thoracic region acute [facility] Work Phone: evaluation note* Diagnosis Onset Date Resolution Status Back pain acute Segmental and somatic dysfunction of lumbar region acute Segmental and somatic dysfunction of pelvic region acute Segmental and somatic dysfunction of thoracic region acute Left knee pain acute Osteoarthritis of left knee noneactive Gastroenteritis acute Anxiety acute Preventative health care acu te [facility] Work Phone: evaluation note* Diagnosis Onset Date Resolution Status Left knee pain acute Osteoarthritis of left knee noneactive Gastroenteritis acute Anxiety acute Preventative health care acu te Palpitations noneactive Left knee pain acute Osteoarthritis of left knee noneactive [facility] Work Phone: Evaluation note* Diagnosis Onset Date Resolution Status Gastroenteritis acute Anxiety acute Preventative health care acu te Palpitations noneactive Left knee pain acute Osteoarthritis of left knee noneactive [facility] Work Phone: Evaluation note* Diagnosis Vaginal discharge- Primary Leukorrhea, not specified as infective Vagina itching Pruritus of genital organs documented in this encounter [facility] note* Diagnosis Vulvovaginal itching- Primary Pruritus of genital organs documented in this encounter [facility] note* Diagnosis Onset Date Resolution Status Obesity (BMI 30.0-34.9) acut e Anxiety chronic [facility] Work Phone: Evaluation noteNo assessment information available [facility] Work Phone: evaluation note* Diagnosis Onset Date Resolution Status Left knee pain acute [facility] Work Phone: Evaluation note* Diagnosis Onset Date Resolution Status Left knee pain acute Accident in home acute Puncture wound of foot, left acute Former smoker chronic [facility] Work Phone: Evaluation note* Diagnosis Vaginal dryness- Primary Other specified symptom associated with female genital organs Low libido Decreased libido Malaise and fatigue Other malaise and fatigue [facility] Diagnosis Vulvovaginal itching Pruritus of genital organs [facility] Diagnosis Encounter for gynecological examination (general) (routine) without abnormal findings- Primary Stress incontinence Female stress incontinence Encounter for screening mammogram for breast cancer Heterogeneously dense tissue of both breasts on mammography History of obesity Personal history of other specified diseases [facility] Diagnosis Osteoarthritis of left knee, unspecified [...] obesity in adulthood [facility] Diagnosis Encounter for screening mammogram for malignant neoplasm of breast- Primary Other screening mammogram [facility] Diagnosis Encounter for screening mammogram for malignant neoplasm of breast Other screening mammogram [facility] Diagnosis Osteoarthritis of left knee, unspecified osteoarthritis type- Primary Anxiety Anxiety state, unspecified Stress incontinence Female stress incontinence History of gestational diabetes Personal history of gestational diabetes Binge-eating disorder, in full remission, mild History of obesity Personal history of other specified diseases [facility] Diagnosis Osteoarthritis of left knee, unspecified osteoarthritis type- Primary Anxiety Anxiety state, unspecified Stress incontinence Female stress incontinence History of gestational diabetes Personal history of gestational diabetes Binge-eating disorder, in full remission, mild History of obesity Personal history of other specified diseases [facility] Diagnosis Vulvovaginal itching Pruritus of genital organs [facility] Diagnosis Osteoarthritis of left knee, unspecified osteoarthritis type- Primary Anxiety Anxiety state, unspecified Stress incontinence Female stress incontinence History of gestational diabetes Personal history of gestational diabetes Binge-eating disorder, in full remission, mild History of obesity Personal history of other specified diseases [facility] Diagnosis Osteoarthritis of left knee, unspecified osteoarthritis type- Primary Anxiety Anxiety state, unspecified Stress incontinence Female stress incontinence History of gestational diabetes Personal history of gestational diabetes Binge-eating disorder, in full remission, mild History of obesity Personal history of other specified diseases documented in this encounter [facility] note* Diagnosis Osteoarthritis of left knee, unspecified osteoarthritis type- Primary Anxiety Anxiety state, unspecified History of gestational diabetes Personal history of gestational diabetes Binge-eating disorder, in full remission, mild Encounter for long-term (current) use of medications Encounter for long-term (current) use of other medications History of obesity Personal history of other specified diseases documented in this encounter [facility] note* Diagnosis Encounter for screening mammogram for malignant neoplasm of breast- Primary Other screening mammogram documented in this encounter [facility] for referral (narrative)* Diagnostic Procedure Only (Routine) [...] MAMMOGRAPHY BI [facility] Robyn Snell APRN.CNP [address] [place] [address] [facility] [address] [place] [address] Referral ID Status Reason Start Date Expiration Date Visits Requested Visits Authorized [id number] Pending Review Auto-Generat ed Referral 11/23/2023 12/22/2024 1 1 [facility] for referral (narrative)* Diagnostic Procedure Only (Routine) - Authorized Specialty Diagnoses / Procedures Referred By Ja scott Referred To Contact [facility] Diagnoses Encounter for screening mammogram for malignant neoplasm of breast Procedures TAMIKO SCREENING W RJ SCREENING DIGITAL BREAST TOMOSYNTHESIS BI SCREENING MAMMOGRAPHY BI [employer] Robyn Snell APRN.CNP [address] [place] [address] [facility] [address] [place] [address] Referral ID Status Reason Start Date Expiration Date Visits Requested Visits Authorized [id number] Authorized Auto-Generat ed Referral 01/21/2024 02/19/2025 1 1 [facility] ([facility]ative)No reason for referral information [facility]WSelect [facility]: Reason for visit Narrative* Diagnostic Procedure Only (Routine) - Closed Specialty Diagnoses / Procedures Referred By Contac t Referred To Contact [facility] Diagnoses Encounter for screening mammogram for malignant neoplasm of breast Procedures TAMIKO SCREENING W RJ SCREENING DIGITAL BREAST TOMOSYNTHESIS BI SCREENING MAMMOGRAPHY BI 2[employer] Robyn Snell APRN.PRINTER ASSISTANT [address] [place] [address] [facility] [address] [place] [address] Referral ID Status Reason Start Date Expiration Date V isits Requested Visits Authorized [id number] Closed Auto-Generate d Referral 01/21/2024 02/19/2025 1 1 [facility] Instructions * Patient Instructions - Cathy [...] you are older than 45 and are -Gambian or have a father or brother who got prostatecancer when he was younger than 65. When should you call for help? Watch closely for changes in your health, and be sure to contact your doctor if you have any problems or symptoms that concern you. Where can you learn more? Log into your personal health record on https://[employer] and enter P072 in the Education box to learn more about Well Visit, Ages 18 to 50: Care Instructions. Current as of: October 10, 2016 Content Version: 11.6 4439-9071 [employer], [employer]. Care instructions adapted under license by your healthcare professional. If you have questions about a medical condition or this instruction, always ask your healthcare professional. Healthwise, [facility] disclaims any warranty or liability for your [...] possible. Tdap is especially important for health care connector and anyone having close contact with a [...] yourself through the VAERS web site at www.vaers.[facility].gov, or by calling . VAERS does not [...] calling or visiting the VICP website at www.[facility].gov/vaccinecompensation. There is a time limit to file a claim for compensation. How can I learn more? Ask your doctor. He or she can give you the vaccine package insert or suggest other sources of information. Call your local or state health department. Contact the Centers for Disease Control and Prevention (CDC): Call (9-875-WOC-INFO) or Visit CDC's website at www.cdc.gov/vaccines Vaccine Information Statement (Interim) Tdap Vaccine (07/21/14) 42 U.S.C. 300aa-26 Department of Health and Human Services Centers for Disease Control and Prevention Many Vaccine Information Statements are available in [place] and other languages. See www.immunize.org/vis. Muchas hojas de informaci n sobre vacunas est n disponibles en espa ol y en otros idiomas. Visite www.immunize.org/vis. Care instructions adapted under license by your healthcare professional. If you have questions about a medical condition or this instruction, always ask your healthcare professional. [employer] disclaims any warranty or liability for your [...] Most normal results will be available through [facility] however if abnormal, you will be notified. [...] look into their status. Customer Service/Billing Questions: [phone] [facility] Assistance: [phone] or [phone] Financial Assistance: [phone] or [phone] Body Mass Index: Care Instructions Your Care [...] Log into your personal health record on https://[employer] and enter S195 in the Education box to learn more about Body Mass Index: Care Instructions. Current as of: May 07, 2019 Content Version: 12.6 [employer]. Care instructions adapted under license by your healthcare professional. If you have questions about a medical condition or this instruction, always ask your healthcare professional. [employer] disclaims any warranty or liability for your [...] about seeing a registered dietitian or an exhibit specialist. It can be a big challenge [...] healthy changes in your diet. ? An exhibit specialist or personal lines agent can help you develop a safe and [...] Log into your personal health record on https://[employer] and enter U357 in the Education box to learn more about Starting a Weight Loss Plan: Care Instructions. Current as of: May 07, 2019 Content Version: 12.6 [employer]. Care instructions adapted under license by your healthcare professional. If you have questions about a medical condition or this instruction, always ask your healthcare professional. [employer] disclaims any warranty or liability for your use of this information. documented in this encounter* Patient Instructions* Shahla Castañeda MD - 08/26/2020 9:15 AM EDT It was a pleasure to see you today. We have scheduled you for a right breast biopsy. I will call you with your biopsy result. At [facility], we believe in information transparency. If you have [employer], you will be able to seeyour test [...] FoundDocuments on File Type Date Recorded Patient Economic Manager Expl anation Advance Directives and Living Will Documents on File Type Date Recorded Patient Economic Manager Expl anation Advance Directives and Living Will Documents on File Type Date Recorded Patient Economic Manager Expl anation Advance Directives and Livin g Will 07/20/2020 12:15 PM Documents on File Type Date Recorded Patient Economic Manager Expl anation Advance Directives and Livin g Will 07/20/2020 12:15 PM Documents on File Type Date Recorded Patient Economic Manager Expl anation Advance Directives and Livin g Will 08/24/2020 11:24 AM Documents on File Type Date Recorded Patient Economic Manager Expl anation Advance Directives and Livin g Will 08/24/2020 11:24 AM Documents on File Type Date Recorded Patient Economic Manager Expl anation Advance Directives and Livin g Will 08/27/2020 11:24 AM Documents on File Type Date Recorded Patient Economic Manager Expl anation Advance Directives and Livin g Will 08/27/2020 11:24 AM Documents on File Type Date Recorded Patient Economic Manager Expl anation Advance Directives and Livin g Will 10/05/2020 11:24 AM Advance Directive Response Recorded Date/ Time Living Will No May 07 9:21am Power of Game Moderator No May 07, 2017 9:21am Advance Directive Response Recorded Date/ Time Living Will No February 11, 2022 3:19pm Power of Game Moderator No January 3:19pm Advance Directive Response Recorded Date/ Time Living Will No March 18 11:18am Power of Game Moderator No March 18, 2023 11:18am Advance Directive Response Recorded Date/ Time Living Will No March 21 10:03am Power of Game Moderator No March 21, 2023 10:03am Advance Directive Response Recorded Date/ Time Living Will No May 20 024 11:34am Do you have a Healthcare Power of Game Moderator? No May 20, 2024 11:34am Advance Directive Response Recorded Date/ Time Do you have a Healthcare Power of Game Moderator? 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 Chato Britton PT State License, [id number] documented in this encounter* Ana Maria Baker [...] 08/26/20 [facility] Name: Do Olson [facility]: [id number] 1980 Physicians: Ana Maria Baker MD [...] baseline screening mammogram on 08[facility] which was given a BIRADS 0 for an asymmetry in the upper right breast, posterior depth. She underwent diagnostic bilateral mammogram and targeted right breast ultrasound on 08/19/2020 at [facility] radiology which was given a BIRADS III for her mammographic asymmetry which was located atthe 2 o'clock position. There was no ultrasound correlate identified. She underwent further evaluation with bilateral breast MRI at [facility] 08/24/2020 which identified a 2 x 1.1 [...] personal history of cancer. BREAST CANCER RISK FACTORS/NIGHT TIME NANNY Hx: Oral Control: Yes, in past Hormone [...] Procedure Laterality Date COSMETIC SURGERY HYSTERECTOMY 04/2017 [place] ENLARGE BREAST WISDOM TOOTH EXTRACTION [facility]: Family [...] questions. Shahla Castañeda MD Breast Surgical Oncology [facility] Office Office CC: Patient Care Team: Ana Maria Baker MD as PCP - General (Internal Medicine) Ana Maria Baker MD as PCP - [facility] Provider - [facility] documented in this encounter* Keily Ken, INDY - 08/27/2020 1:52 PM EDT Breast Health Nurse Contact Met with patient prior to biopsy. Provided review of biopsy procedure. Pt. verbalized good understanding. Right ultrasound breast biopsy completed without complications. Bleeding stopped with manual pressure. Steri-strips & ice applied to biopsy site. Discharge instructions given verbally and in printed form. Pt. discharged to home in good condition. Viktoriya Ken RN, BSN, [facility] Nurse Navigator [address], [address] [phone]-phone [phone] documented in this encounter Reason for Referral Status Reason Specialty Diagnoses / Procedures Referred By Contact Referred To Contact Authorized Specialty Services Required/[facility] Diagnoses Lateral epicondylitis, unspecified laterality Ana Maria Baker MD [address] [place] [address] [facility] [address] [place] [address] Status Reason Specialty Diagnoses / Procedures Referred By Contact Referred To Contact Authorized Patient Preference Diagnoses Encounter for screening for malignant neoplasm of breast, unspecified screening modality Procedures Mammography Screening Bilateral Ana Maria Baker MD [facility] [place] [address] [address] Phone: [phone] Status Reason Specialty Diagnoses / Procedures Referred By Contact Referred To Contact Authorized Radiology Diagnoses Follow-up examination of abnormal mammogram Procedures Mammography Diagnostic Bilateral Ana Maria Baker MD [facility] [address] [address] Status Reason Specialty Diagnoses / Procedures Referred By Contact Referred To Contact Authorized Radiology Diagnoses Follow-up examination of abnormal mammogram Procedures MR Breast Right With Contrast Ana Maria Baker MD [id number] [facility] [address] [place] [address] Status Reason Specialty Diagnoses / Procedures Referred By Contact Referred To Contact New Request Radiology Diagnoses Follow-up examination of abnormal mammogram Procedures MR Breast Bilateral With And Without Contrast Ana Maria Baker MD [address] [place] [address] Status Reason Specialty Diagnoses / Procedures Referred By Contact Referred To Contact Authorized Radiology Diagnoses Stress at home Procedures US Breast Biopsy Right Ana Maria Baker MD [address] [place] [address] Status Reason Specialty Diagnoses / Procedures Referred By Contact Referred To Contact Authorized Specialty Services Required/[facility] Breast Surgery Diagnoses Follow-up examination of abnormal mammogram Ana Maria Baker MD [address] [place] [address] Shahla Castañeda MD [address] [place] [address] Status Reason Specialty Diagnoses / Procedures Referred By Contact Referred To Contact Closed Patient Preference Radiology Diagnoses Follow-up examination of abnormal mammogram Procedures MR Breast Bilateral With And Without Contrast Ana Maria Baker MD [facility] [place] [address] Status Reason Specialty Diagnoses / Procedures Re ferred By Contact Referred To Contact New Request Radiology Diagnoses Mass of upper inner quadrant of right breast Procedures Mammography Stereotactic Breast Biopsy Right Shahla Castañeda MD [address] [place] [address] Status Reason Specialty Diagnoses / Procedures Referred By Contact Referred To Contact Pending Review Radiology Diagnoses Mass of upper inner quadrant of right breast Procedures US Breast Biopsy Right Shahla Castañeda MD [address] [facility] [address] [place] [address] Status Reason Specialty Diagnoses / Procedures Referred By Contact Referred To Contact Pending Review Radiology Diagnoses Mass of upper inner quadrant of right breast Procedures US Breast Right Limited Shahla Castañeda MD [address] [facility] [address] [place] [address] Status Reason Specialty Diagnoses / Procedures Re ferred By Contact Referred To Contact Canceled Radiology Diagnoses Mass of upper inner quadrant of right breast Procedures Mammography Stereotactic Breast Biopsy Right Shahla Castañeda MD [address] [place] [address] Status Reason Specialty Diagnoses / Procedures Referred By Contact Referred To Contact Closed Radiology Diagnoses Stress at home Procedures US Breast Biopsy Right Ana Maria Baker MD [address] [id number] Status Reason Specialty Diagnoses / Procedures Referred By Contact Referred To Contact Pending Review Radiology Diagnoses Stress at home Procedures Mammography Follow-up Post Clip Placement Ana Maria Baker MD [address] [address] Discharge Instructions * Instructions* Radha Nair, TECHNOLOGIST [...] Left carpal tunnel syndrome September 26 8:47am Chief Complaint Admit Date LEFT WRIST September 26, 2024 8:47am RT HAMSTRING/PT HAS RX October 17, 2024 7: 30am Left open Carpal Tunnel Release December 302024 7:04am Reason for Visit Admit Date Left carpal tunnel syndrome September 26 8:47am Chief Complaint Admit Date Left open Carpal Tunnel Release December 302024 7:04am screening February 24, 2025 11:30am Additional Source Comments Assessment & Plan Note - Cathy Salgado PRINTER ASSISTANT - 01/11/2018 9:49 AM EDTAssessment & Plan Note - Cathy Salgado [facility] - 01/11/2018 9:48 AM EDT Miscellaneous Notes [...] section and content) DATE CREATED AUTHOR 06/30/[address] [facility] DATE CREATED AUTHOR AUTHOR'S DONALDIZ ATION 07/22/2020 [facility] DATE CREATED AUTHOR AUTHOR'S ORGANIZ ATION 08/22/2020 [facility] DATE CREATED AUTHOR AUTHOR'S ORGANIZ ATION 10/19/2020 [facility] DATE CREATED AUTHOR AUTHOR'S ORGANIZ ATION 12/09/2020 [facility] DATE CREATED AUTHOR AUTHOR'S ORGANIZ ATION 01/10/2021 [facility] DATE CREATED AUTHOR AUTHOR'S ORGANIZ ATION 02/23/2021 [facility] ([place] DATE CREATED AUTHOR AUTHOR'S ORGANIZ ATION 01/16/2025 [facility] DATE CREATED AUTHOR AUTHOR'S ORGANIZ ATION 03/04/2025 [facility] Reason for Visit (unrecogniz ed section and content) Reason Comments Pain L ELBOW Anxiety Weight Loss Reason Comments Physical Therapy Status Reason Specialty Diagnoses / Procedures Referred By Contact Referred To Contact Authorized Specialty Services Required/Rafaela ent's Best Interest Rehabilitation Diagnoses Lateral epicondylitis, unspecified laterality Ana Maria Baker MD [address] [place] [address] [phone] Reason Onset Date Comments Medication Refill 07/22/2020 Status Reason Specialty Diagnoses / Procedures Referred By Contact Referred To Contact Closed Patient Preference Radiology Diagnoses Follow-up examination of abnormal mammogram Procedures MR Breast Bilateral With And Without Contrast Ana Maria Baker MD [address] [place] [address] Reason Comments Initial Visit (Intake) right breast mass CAT4 Status Reason Specialty Diagnoses / Procedures Referred By Contact Referred To Contact Closed Specialty Services Required/Patien t's Best Interest Breast Surgery Diagnoses Follow-up examination of abnormal mammogram Ana Maria Baker MD [facility] [id number] Shahla Castañeda MD [address] [place] [address] Status Reason Specialty Diagnoses / Procedures Re ferred By Contact Referred To Contact Canceled Radiology Diagnoses Mass of upper inner quadrant of right breast Procedures Mammography Stereotactic Breast Biopsy Right Shahla Castañeda MD [address] [facility] [address] [place] [address] Status Reason Specialty Diagnoses / Procedures Referred By Contact Referred To Contact Closed Radiology Diagnoses Stress at home Procedures US Breast Biopsy Right Ana Maria Baker MD [facility] [place] [address] Status Reason Specialty Diagnoses / Procedures Referred By Contact Referred To Contact Pending Review Radiology Diagnoses Mass of upper inner quadrant of right breast Procedures US Breast Right Limited Shahla Castañeda MD [address] [facility] [address] [place] [address] Status Reason Specialty Diagnoses / Procedures Referred By Contact Referred To Contact Pending Review Radiology Diagnoses Stress at home Procedures Mammography Follow-up Post Clip Placement Ana Maria Baker MD [address] [place] [address] Reason Comments Annual Exam Status Reason Specialty Diagnoses / Procedures Referred By Contact Referred To Contact Authorized Specialty Services Required/Rafaela ent's Best Interest Rehabilitation Diagnoses Lateral epicondylitis, unspecified laterality Ana Maria Baker MD [address] [place] [address] [phone] Reason Comments Vaginal Problem Discharge Reason Comments Patient Question Reason Comments Vaginal Problem Reason Comments Well Woman Reason Onset Date Comments Weight Management 12/25/2023 Reason Comments Orders Reason Comments Weight Management Reason Comments Follow Up Weight Management Reason Onset Date Comments Refill Request 04/15/2024 Reason Comments Outside Labs Results Care Teams (unrecognized sec tion and content) Sound Engineer Relationship Specialty Start Date End Date Ana Maria Baker MD [facility] [place] [address] PCP - General Internal Medicine 05/06/20 Ana Maria Baker MD [address] [id number] PCP - MARY KAY Attributed Provider - [facility] 06/27/20 Robyn Bergeron, RN Patient Navigator 08/27/20 Sherry Bagley PA-C [address] [address] Physician Landing Worker Physician Landing Worker 11/25/20 Sound Engineer Relationship Specialty Start Date End Date Ana Maria Baker MD [address] [id number] PCP - General Internal Medicine 05/06/20 Ana Maria Baker MD [facility] [id number] PCP - MARY KAY Attributed Provider - [facility] 06/27/20 Robyn Bergeron RN Patient Navigator 08/27/20 Sherry Bagley PA-C [address] [address] Physician Landing Worker Physician Landing Worker 11/25/20 Sound Engineer Relationship Specialty Start Date End Date Ana Maria Baker MD [address] [id number] PCP - General Internal Medicine 05/06/20 Ana Maria Baker MD [facility] [id number] PCP - MARY KAY Attributed Provider - [facility] 06/27/20 Robyn Bergeron RN Patient Navigator 08/27/20 Sherry Bagley PA-C [address] [address] Physician Landing Worker Physician Landing Worker 11/25/20 Sound Engineer Relationship Specialty Start Date End Date Ana Maria Baker MD [address] [id number] PCP - General Internal Medicine 05/06/20 Robyn Bergeron, RN Patient Navigator 08/27/20 Sherry Bagley PA-C [address] [place] [address] Physician Landing Worker Physician Landing Worker 11/25/20 Sound Engineer Relationship Specialty Start Date End Date Ana Maria Baker MD [address] [place] [address] Referring Internal Medicine 08/11/20 Sound Engineer Relationship Specialty Start Date End Date Ana Maria Baker MD [address] [place] [address] Referring Internal Medicine 08/11/20 Sound Engineer Relationship Specialty Start Date [place] [address] Referring Internal Medicine 08/11/20 Sound Engineer Relationship Specialty Start Date End Date Ana Maria Baker MD [address] [place] [address] Referring Internal Medicine 08/11/20 Team Status: Active Member Role Status Dates No Primary Care Physician Family Provider Active Daria GARRIDO MD Primary Care Provider Active Team Status: Inactive Member Role Status Dates Daria GARRIDO MD Primary Care Provider, Referr ing Provider Active Kartik Padgett COTTON STOMPER, COTTON STOMPER-C Attending Provider Active Team Status: Inactive Member Role Status Dates Daria GARRIDO MD Primary Care Provider Active Robyn Warner NP, COTTON STOMPER-C Attending Provider Active Team Status: Active Member Role Status Dates No Primary Care Physician Family Provider Active Kartik Padgett VSC, COTTON STOMPER-C Primary Care Provider Active Team Status: Inactive Member Role Status Dates Lucero KAUFFMAN PA Attending Provider, Referring Provi wali Active Kartik Padgett VSC, COTTON STOMPER-C Primary Care Provider Active Team Status: Inactive Member Role Status Dates Robyn Warner NP, COTTON STOMPER-C Attending Provider Active Dr. Daria Martines MD Primary Care Provider Active Team Status: Inactive Member Role Status Dates Kartik Hdezder VSC, COTTON STOMPER-C Primary Care Provider, Referring Provider Active DALY Martinez Attending Provider Active Team Status: Inactive Member Role Status Dates Kartik Padgett VSC, COTTON STOMPER-C Primary Care Provider Active Dr. Liliam Brian MD Emergency Provider Active Team Status: Active Member Role Status Dates No Primary Care Physician Family Provider Active Kartik Hdezder COTTON STOMPER, COTTON STOMPER-C Primary Care Provider Active Team Status: Inactive Member Role Status Dates Kartik Padgett VSC, COTTON STOMPER-C Primary Care Provider, Referring Provider Active Dr. Brenton Gifford MD Attending Provider Active Team Status: Inactive Member Role Status Dates Kartik Padgett VSC, COTTON STOMPER-C Primary Care Provider Active Dr. Liliam Brian MD Attending Provider, Emergency Provider Active Team Status: Inactive Member Role Status Dates Dr. Brenton Gifford MD Attending Provider, Referring P rovider Active Kartik Hdezder COTTON STOMPER, COTTON STOMPER-C Primary Care Provider Active Sound Engineer Relationship Specialty Start Date End Date Kartik Padgett CNP [address] [id number] PCP - General Family Medicine 10/02/23 Ana Maria Baker MD [address] [place] [address] Referring Internal Medicine 08/11/20 Team Status: Inactive Member Role Status Dates Jesus Manuel Burris COTTON STOMPER-C Attending Provider, Referring Provider Active Kartik Padgett VSC, COTTON STOMPER-C Primary Care Provider Active Sound Engineer Relationship Specialty Start Date End Date Kartik Padgett CNP [address] [place] [address] PCP - General Family Medicine 10/02/23 Ana Maria Baker MD [address] [place] [address] Referring Internal Medicine 08/11/20 Sound Engineer Relationship Specialty Start Date End Date Kartik Padgett CNP [address] [place] [address] PCP - General Family Medicine 10/02/23 Ana Maria Baker MD [place] [address] Referring Internal Medicine 08/11/20 Sound Engineer Relationship Specialty Start Date End Date Kartik Padgett CNP [address] [place] [address] PCP - General Family Medicine 10/02/23 Ana Maria Baker MD [place] [address] Referring Internal Medicine 08/11/20 Sound Engineer Relationship Specialty Start Date End Date Kartik Padgett CNP [address] [place] [address] PCP - General Family Medicine 10/02/23 Ana Maria Baker MD [place] [address] Referring Internal Medicine 08/11/20 Sound Engineer Relationship Specialty Start Date End Date Kartik Padgett CNP [address] [place] [address] PCP - General Family Medicine 10/02/23 Ana Maria Baker MD [place] [address] Referring Internal Medicine 08/11/20 Sound Engineer Relationship Specialty Start Date End Date Kartik Padgett CNP [address] [place] [address] PCP - General Family Medicine 10/02/23 Ana Maria Baker MD [address] [place] [address] Referring Internal Medicine 08/11/20 Sound Engineer Relationship Specialty Start Date End Date Kartik Padgett CNP [address] [place] [address] PCP - General Family Medicine 10/02/23 Ana Maria Baker MD [address] [id number] Referring Internal Medicine 08/11/20 Sound Engineer Relationship Specialty Start Date End Date Kartik Padgett CNP [address] [place] [address] PCP - General Family Medicine 10/02/23 Ana Maria Baker MD [address] [place] [address] Referring Internal Medicine 08/11/20 Sound Engineer Relationship Specialty Start Date End Date Kartik Padgett CNP [address] [place] [address] PCP - General Family Medicine 10/02/23 Ana Maria Baker MD [address] [place] [address] Referring Internal Medicine 08/11/20 Sound Engineer Relationship Specialty Start Date End Date Kartik Padgett CNP [address] [place] [address] PCP - General Family Medicine 10/02/23 Ana Maria Baker MD [place] [address] Referring Internal Medicine 08/11/20 Sound Engineer Relationship Specialty Start Date End Date Kartik Padgett CNP [address] [place] [address] PCP - General Family Medicine 10/02/23 Ana Maria Baker MD [place] [address] Referring Internal Medicine 08/11/20 Sound Engineer Relationship Specialty Start Date End Date Kartik Padgett CNP [address] [place] [address] PCP - General Family Medicine 10/02/23 Ana Maria Baker MD [place] [address] Referring Internal Medicine 08/11/20 Team Status: Active Member Role Status Dates Kartik Padgett VSC, COTTON STOMPER-C Primary Care Provider Active Team Status: Inactive Member Role Status Dates Kartik Padgett VSC, COTTON STOMPER-C Primary Care Provider Active Start: June 10, 2024 End: June 10, 2024 Dr. Eulogio Mello DO Attending Provider Active Start: June 10, 2024 End: June 10, 2024 Dr. Eulogio Mello DO Referring Provider Active Start: June 10, 2024 End: June 10, 2024 Team Status: Active Member Role Status Dates Kartik Padgett VSC, COTTON STOMPER-C Primary Care Provider Active Start: June 10, 2024 Dr. Eulogio Mello DO Attending Provider Active Start: June 10, 2024 Dr. Eulogio Mello DO Referring Provider Active Start: June 10, 2024 Dr. Eulogio Mello DO Other Provider Active St art: June 10, 2024 Team Status: Inactive Member Role Status Dates Kartik RIDLEY, COTTON STOMPER-C Primary Care Provider Active Start: August 04, 2024 End: August 04, 2024 Kartik RIDLEY, COTTON STOMPER-C Referring Provider Active S tart: August 04, 2024 End: August 04, 2024 Brooke Liu NP-C Attending Provider Active Start: August 04, 2024 End: August 04, 2024 Team Status: Inactive Member Role Status Dates Kartik RIDLEY, COTTON STOMPER-C Primary Care Provider Active Start: August 04, 2024 End: August 04, 2024 Dr. Dg Flores MD Attending Provider Active S tart: August 04, 2024 End: August 04, 2024 Team Status: Inactive Member Role Status Dates Kartik RIDLEY, COTTON STOMPER-C Primary Care Provider Active Start: August 07, 2024 End: August 07, 2024 Brooke Liu NP-C Attending Provider Active Start: August 07, 2024 End: August 07, 2024 Brooke Liu NP-Alex Referring Provider Active Start: August 07, 2024 End: August 07, 2024 Team Status: Inactive Member Role Status Dates Kartik RIDLEY, COTTON STOMPER-C Primary Care Provider Active Start: August 07, 2024 End: August 07, 2024 Kartik RIDLEY, COTTON STOMPER-C Referring Provider Active S tart: August 07, 2024 End: August 07, 2024 Brooke Liu NP-C Attending Provider Active Start: August 07, 2024 End: August 07, 2024 Sound Engineer Relationship Specialty Start Date End Date Kartik Padgett CNP [address] [place] [address] PCP - General Family Medicine 10/02/23 Ana Maria Baker MD Referring Internal Medicine 08/11/20 Team Status: Active Member Role/Relationship Status Dates Kartik RIDLEY, COTTON STOMPER-C Primary Care Provider Active Team Status: Inactive Member Role/Relationship Status Dates Kartik Padgett VSC, COTTON STOMPER-C Primary Care Provider Active Start: August 04, 2024 End: August 04, 2024 Kartik Hdezder ERIKAC, COTTON STOMPER-C Referring Provider Active S tart: August 04, 2024 End: August 04, 2024 Brooke Liu COTTON STOMPER-C Attending Provider Active Start: August 04, 2024 End: August 04, 2024 Team Status: Inactive Member Role/Relationship Status Dates Kartik Padgett VSC, COTTON STOMPER-C Primary Care Provider Active Start: August 04, 2024 End: August 04, 2024 Dr. Dg Flores MD Attending Provider Active S tart: August 04, 2024 End: August 04, 2024 Team Status: Inactive Member Role/Relationship Status Dates Kartik Padgett VSC, COTTON STOMPER-C Primary Care Provider Active Start: August 07, 2024 End: August 07, 2024 Brooke Liu COTTON STOMPER-C Attending Provider Active Start: August 07, 2024 End: August 07, 2024 Brooke Liu COTTON STOMPER-C Referring Provider Active Start: August 07, 2024 End: August 07, 2024 Team Status: Inactive Member Role/Relationship Status Dates Kartik Padgett VSC, COTTON STOMPER-C Primary Care Provider Active Start: August 07, 2024 End: August 07, 2024 Kartik JAMESC, COTTON STOMPER-C Referring Provider Active S tart: August 07, 2024 End: August 07, 2024 Brooke Liu COTTON STOMPER-C Attending Provider Active Start: August 07, 2024 End: August 07, 2024 Team Status: Inactive Member Role/Relationship Status Dates Kartik Padgett VSC, COTTON STOMPER-C Primary Care Provider Active Start: September 26, 2024 End: September 26, 2024 Kartik JAMESC, COTTON STOMPER-C Referring Provider Active S tart: September 26, 2024 End: September 26, 2024 Dr. Eulogio Mello DO Attending Provider Active Start: September 26, 2024 End: September 26, 2024 Team Status: Inactive Member Role/Relationship Status Dates Kartik Padgett VSC, COTTON STOMPER-C Primary Care Provider Active Start: October 17, 2024 End: October 17, 2024 Dr. Daryl Peralta MD Attending Provider Active Start: October 17, 2024 End: October 17, 2024 Dr. Daryl Peralta MD Referring Provider Active Start: October 17, 2024 End: October 17, 2024 Sound Engineer Relationship Specialty Start Date End Date Kartik Padgett CNP [address] [place] [address] PCP - General Family Medicine 10/02/23 Ana Maria Baker MD Referring Internal Medicine 08/11/20 Sound Engineer Relationship Specialty Start Date End Date Kartik Padgett CNP [address] [place] [address] PCP - General Family Medicine 10/02/23 Ana Maria Baker MD Referring Internal Medicine 08/11/20 Team Status: Inactive Member Role/Relationship Status Dates Kartik Leroy VSC, COTTON STOMPER-C Primary Care Provider Active Start: September 26, 2024 End: September 26, 2024 Kartik HdzeHunterC, COTTON STOMPER-C Referring Provider Active S tart: September 26, 2024 End: September 26, 2024 Dr. Eulogio Mello DO Attending Provider Active Start: September 26, 2024 End: September 26, 2024 Team Status: Inactive Member Role/Relationship Status Dates Kartik Hdezder VSC, COTTON STOMPER-C Primary Care Provider Active Start: October 17, 2024 End: October 17, 2024 Dr. Daryl Peralta MD Attending Provider Active Start: October 17, 2024 End: October 17, 2024 Dr. Daryl Peratla MD Referring Provider Active Start: October 17, 2024 End: October 17, 2024 Team Status: Active Member Role/Relationship Status Dates Kartik Padgett VSC, COTTON STOMPER-C Primary Care Provider Active Start: December 30, 2024 Robyn Warner NP, COTTON STOMPER-C Attending Provider Active S tart: December 30, 2024 Robyn Warner NP, COTTON STOMPER-C Referring Provider Active S tart: December 30, 2024 Team Status: Active Member Role/Relationship Status Dates Kartik RIDLEY, COTTON STOMPER-C Primary Care Provider Active Start: December 30, 2024 Dr. Eulogio Mello DO Attending Provider Active Start: December 30, 2024 Dr. Eulogio Mello DO Referring Provider Active Start: December 30, 2024 Dr. Eulogio Mello DO Other Provider Active St art: December 30, 2024 Team Status: Inactive Member Role/Relationship Status Dates Kartik RIDLEY, COTTON STOMPER-C Primary Care Provider Active Start: December 30, 2024 End: December 30, 2024 Robyn Warner NP, COTTON STOMPER-C Attending Provider Active S tart: December 30, 2024 End: December 30, 2024 oRbyn Warner NP, COTTON STOMPER-C Referring Provider Active S tart: December 30, 2024 End: December 30, 2024 Sound Engineer Relationship Specialty Start Date End Date Kartik Padgett CNP [address] [place] [address] PCP - General Family Medicine 10/02/23 Ana Maria Baker MD Referring Internal Medicine 08/11/20 Sound Engineer Relationship Specialty Start Date End Date Padgett, Kartik ANMOL [address] [place] [address] PCP - General Family Medicine 10/02/23 Ana Maria Baker MD Referring Internal Medicine 08/11/20 Team Status: Active Member Role/Relationship Status Dates Kartik RIDLEY COTTON STOMPER-C Primary care physician Active Team Status: Inactive Member Role/Relationship Status Dates Kartik RIDLEY, COTTON STOMPER-C Primary care physician Active Start: December 30, 2024 End: December 30, 2024 Robyn Warner NP, COTTON STOMPER-C Attending physician Active Start: December 30, 2024 End: December 30, 2024 Robyn Warner NP, COTTON STOMPER-C Referring Provider Active S tart: December 30, 2024 End: December 30, 2024 Team Status: Active Member Role/Relationship Status Dates Kartik RIDLEY COTTON STOMPER-C Primary care physician Active Start: December 30, 2024 Dr. Eulogio Mello DO Attending physician Active Start: December 30, 2024 Dr. Eulogio Mello DO Referring Provider Active Start: December 30, 2024 Dr. Eulogio Mello DO Nurse Practitioner Active Start: December 30, 2024 Team Status: Inactive Member Role/Relationship Status Dates Kartik Leroy RIDLEY COTTON STOMPER-C Primary care physician Active Start: February 24, 2025 End: February 24, 2025 Robyn Warner NP, NP-C Attending physician Active Start: February 24, 2025 End: February 24, 2025 Robyn Warner NP COTTON STOMPER-C Referring Provider Active S tart: February 24, 2025 End: February 24, 2025 Source Comments (unrecognize d section and content) In the event this informatio n is protected by the Federal Confidentiality of Alcohol and Drug Abuse Patient Records regulations: The Federal rules restrict any use of the information to criminally investigate or prosecute any alcohol or drug abuse patient.[facility] the event this information is protected by the Federal Confidentiality of Alcohol and Drug Abuse Patient Records regulations: The Federal rules restrict any use of the information to criminally investigate or prosecute any alcohol or drug abuse patient.[facility] the event this information is protected by the Federal Confidentiality of Alcohol and Drug Abuse Patient Records regulations: The Federal rules restrict any use of the information to criminally investigate or prosecute any alcohol or drug abuse patient.[facility] Hospital[facility] the event this information is protected by the Federal Confidentiality of Alcohol and Drug Abuse Patient Records regulations: The Federal rules restrict any use of the information to criminally investigate or prosecute any alcohol or drug abuse patient.[facility] Hospital[facility] the event this information is protected by the Federal Confidentiality of Alcohol and Drug Abuse Patient Records regulations: The Federal rules restrict any use of the information to criminally investigate or prosecute any alcohol or drug abuse patient.[facility] Hospital[facility] the event this information is protected by the Federal Confidentiality of Alcohol and Drug Abuse Patient Records regulations: The Federal rules restrict any use of the information to criminally investigate or prosecute any alcohol or drug abuse patient.[facility] HospitalIn the event this information is protected by the Federal Confidentiality of Alcohol and Drug Abuse Patient Records regulations: The Federal rules restrict any use of the information to criminally investigate or prosecute any alcohol or drug abuse patient.[facility] HospitalIn the event this information is protected by the Federal Confidentiality of Alcohol and Drug Abuse Patient Records regulations: The Federal rules restrict any use of the information to criminally investigate or prosecute any alcohol or drug abuse patient.[facility] HospitalIn the event this information is protected by the Federal Confidentiality of Alcohol and Drug Abuse Patient Records regulations: The Federal rules restrict any use of the information to criminally investigate or prosecute any alcohol or drug abuse patient.[facility] HospitalIn the event this information is protected by the Federal Confidentiality of Alcohol and Drug Abuse Patient Records regulations: The Federal rules restrict any use of the information to criminally investigate or prosecute any alcohol or drug abuse patient.[facility] HospitalIn the event this information is protected by the Federal Confidentiality of Alcohol and Drug Abuse Patient Records regulations: The Federal rules restrict any use of the information to criminally investigate or prosecute any alcohol or drug abuse patient.[facility] HospitalIn the event this information is protected by the Federal Confidentiality of Alcohol and Drug Abuse Patient Records regulations: The Federal rules restrict any use of the information to criminally investigate or prosecute any alcohol or drug abuse patient.[facility] HospitalIn the event this information is protected by the Federal Confidentiality of Alcohol and Drug Abuse Patient Records regulations: The Federal rules restrict any use of the information to criminally investigate or prosecute any alcohol or drug abuse patient.[facility] HospitalIn the event this information is protected by the Federal Confidentiality of Alcohol and Drug Abuse Patient Records regulations: The Federal rules restrict any use of the information to criminally investigate or prosecute any alcohol or drug abuse patient.[facility] HospitalIn the event this information is protected by the Federal Confidentiality of Alcohol and Drug Abuse Patient Records regulations: The Federal rules restrict any use of the information to criminally investigate or prosecute any alcohol or drug abuse patient.[facility] HospitalIn the event this information is protected by the Federal Confidentiality of Alcohol and Drug Abuse Patient Records regulations: The Federal rules restrict any use of the information to criminally investigate or prosecute any alcohol or drug abuse patient.[facility] HospitalIn the event this information is protected by the Federal Confidentiality of Alcohol and Drug Abuse Patient Records regulations: The Federal rules restrict any use of the information to criminally investigate or prosecute any alcohol or drug abuse patient.[facility] HospitalIn the event this information is protected by the Federal Confidentiality of Alcohol and Drug Abuse Patient Records regulations: The Federal rules restrict any use of the information to criminally investigate or prosecute any alcohol or drug abuse patient.[facility] HospitalIn the event this information is protected by the Federal Confidentiality of Alcohol and Drug Abuse Patient Records regulations: The Federal rules restrict any use of the information to criminally investigate or prosecute any alcohol or drug abuse patient.[facility] HospitalIn the event this information is protected by the Federal Confidentiality of Alcohol and Drug Abuse Patient Records regulations: The Federal rules restrict any use of the information to criminally investigate or prosecute any alcohol or drug abuse patient.[facility] HospitalIn the event this information is protected by the Federal Confidentiality of Alcohol and Drug Abuse Patient Records regulations: The Federal rules restrict any use of the information to criminally investigate or prosecute any alcohol or drug abuse patient.[facility] HospitalIn the event this information is protected by the Federal Confidentiality of Alcohol and Drug Abuse Patient Records regulations: The Federal rules restrict any use of the information to criminally investigate or prosecute any alcohol or drug abuse patient.[facility] HospitalIn the event this information is protected by the Federal Confidentiality of Alcohol and Drug Abuse Patient Records regulations: The Federal rules restrict any use of the information to criminally investigate or prosecute any alcohol or drug abuse patient.[facility] FOR RECORDS PERTAINING TO PATIENTS WHO [...] BE BASED ON THE PRIMARY CLINICAL RECORDS. [facility] [employer] [facility]. provides no warranty or guarantee of the accuracy or completeness of information in this document.
[2025-03-12] MEDS: Ketorolac 30 MG/ML Syringe IV (07:19)
[2025-03-12] MEDS: Orphenadrine 60 MG/2 ML Ampul 30 MG IV (07:20)
[2025-03-12 07:46] VITALS: BP 111/70; PULSE 70; RESP 14; TEMP 37.1; O2SAT 100
== END 2025-03-12 07:52 | disposition home or self-care (01) ==
PROVIDERS: Emergency Provider Emergency Medicine; PCP Nurse Practitioner Family; Visit Provider Emergency Medicine
DX: S16.1XXA Strain of muscle, fascia and tendon at neck level, initial encounter (principal); Z90.710 Acquired absence of both cervix and uterus; M50.20 Other cervical disc displacement, unspecified cervical region; R51.9 Headache, unspecified; Z87.891 Personal history of nicotine dependence; M48.32 Traumatic spondylopathy, cervical region; V80.010A Animal-rider injured by fall from or being thrown from horse in noncollision accident, initial encounter
CPT/HCPCS: 70450; 72125; 96361; 96374; 96375; 99283

== ENCOUNTER → 2025-03-18 | Outpatient (CLI) | payer OTHER, SELFPAY ==
--- NOTE | 2025-03-18 06:56 | MRI_ITS ---
PROCEDURE: SPINE LUMBAR (ROUTINE) 03/18/2025 REASON FOR EXAM: RIGHT BUTTOCK PAIN, LOW BACK PAIN TECHNIQUE: Procedure Code: MRISPL Modality: MR Procedure: SPINE LUMBAR (ROUTINE) COMPARISON: None. FINDINGS: Vertebrae: Intact. Alignment: No evidence of spondylolysis or spondylolisthesis. Conus Medullaris: Normal appearance, terminating at the upper L1 level. L1-2: Unremarkable L2-3: A slight disc bulge is seen. No spinal canal stenosis or neural foraminal narrowing is seen. L3-4: Mild posterior facet hypertrophy is noted. No significant spinal canal stenosis or neural foraminal narrowing is seen. L4-5: Mild posterior facet and ligamentum flavum hypertrophy is noted. A mild central disc protrusion is seen. Very mild spinal canal narrowing is noted. No significant neural foraminal narrowing is seen. L5-S1: Hkol-sc-ceciwsaq posterior facet hypertrophy is seen. No significant spinal canal stenosis or neural foraminal narrowing is seen. Sacrum: No significant abnormality noted in visualized areas. MRI/Spine Lumbar (Routine) IMPRESSION: Overall mild multilevel lumbar degenerative disc disease is noted. Reading Location: [id number]
--- OUTSIDE RECORDS SUMMARY | 2025-03-18 07:29 | XMS RPT_ITS | CCD ---
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 Name Role Phone Anselmo Rossi Unavailable Spring, Cathy Shields Admitting Unavailable Spring, Cathy Shields Attending Unavailable Spring, Cathy Shielsd Primary Care Unavailable ACSO Consulting Unavailable OliviaAna Maria Primary Care Provider [phone] Olivia, Ana Maria Unavailable OLIVIAANA MARIA Geiger Referring Unavailable OLIVIAANA MARIA Attending Unavailable OLIVIA, ANA MARIA Primary Care Unavailable Olivia, Ana Maria Primary Care Provider Olivia, Ana Maria Unavailable Olivia, Ana Maria Primary Care Provider [phone] Olivia, Ana Maria Unavailable Oostrgolden Shahla Unavailable Robyn Bergeron Unavailable Unavailable OliviaAna Maria geiger MD Primary Care Provider [phone] Olivia LAU, Ana Maria Unavailable Shahla Castañeda MD Unavailable Elyssa PUTNAM, Robyn Unavailable Unavailable SYSTEM, PROVIDER NOT IN Attending Unavaila ble SYSTEM, PROVIDER NOT IN Referring Unavaila ble ANA MARIA BAKER Primary Care Unavailable OOSTRASHAHLA Admitting Unavailable OLIVIA, ANA MARIA Primary Care Unavailable OOSTRASHAHLA Attending Unavailable OOSTRA, SHAHLA RESTREPO Referring Unavailable [...] RAI Admitting Unavailable ROBYN RAI Referring Unavailable OliviaAna Maria geiger MD Primary Care Provider Olivia LAU, Ana Maria Unavailable Christophe CARRILLO, Sherry Murcia Unavailable DESI PRESCOTT Attending Unavailable OLIVIA, ANA [...] Provider Un available DALY Santiago Attending Provider [phone] DALY Matthews Attending Provider Dr. Daria Martines [...] Attending Provider Ana Maria Baker MD Unavailable OliviaAna Maria geiger MD Unavailable MD Daria Cummings Primary Care Provider U navailable MD Daria Cummings Referring Provider Unav ailable Leroy FARMHAND, FARMHAND-C Kartik Attending Provider Padgett VSC, FARMHAND-C Kartik Primary Care Provider Padgett VSC, FARMHAND-C Kartik Referring Provider DALY Santiago Attending Provider Dr. Brenton Gifford Attending Provider Padgett HEAD SHIPPER, Kartik Primary Care Provider Padgett FARMHAND-C, Kartik Primary Care Provider Funmilayo AGUIRRE, Dr. Krishnan Attending Provider Funmilayo AGUIRRE, Dr. Krishnan Referring Provider Funmilayo AGUIRRE, Dr. Krishnan Other Provider Padgett FARMHAND-C, Kartik Referring Provider Liu FARMHAND-C, Brooke Attending Provider Mark LAU, Dr. Conte Attending Provider Liu FARMHAND-C, Brooke Referring Provider Olivia LAU, Ana Maria Unavailable Unavailable Padgett FARMHAND-C, Kartik Primary Care Provider Funmilayo AGUIRRE, Dr. Krishnan Attending Provider Kathryn LAU, Dr. Daryl Geiger Attending Provider Kathryn LAU, Dr. Daryl Geiger Referring Provider [phone] Olivia LAU, Ana Maria Unavailable Padgett FARMHAND-C, Kartik Primary Care Provider Padgett FARMHAND-C, Kartik Referring Provider Warner FARMHAND-C, Robyn Attending Provider Warner FARMHAND-C, Robyn Referring Provider Dr. Eulogio Mello DO Referring Provider Funmilayo AGUIRRE, Dr. Krishnan Other Provider WARNER, ROBYN Referring Unavailable PADGETT, KARTIK Primary Care Unavailable PADGETT, KARTIK Primary Care Unavailable WARNER, ROBYN Attending Unavailable WARNER, ROBYN Attending Unavailable PADGETT, KARTIK Primary Care Unavailable WARNER, ROBYN Attending Unavailable PADGETT, KARTIK Primary Care Unavailable WARNER, ROBYN Attending Unavailable PADGETT, KARTIK Primary Care Unavailable WARNER, ROBYN Attending Unavailable PADGETT, KARTIK Primary Care Unavailable Padgett FARMHAND-C, Kartik Primary Care Physician Warner FARMHAND-C, Robyn Attending Physician Dr. Eulogio Mello DO Attending Physician Dr. Eulogio Mello DO Nurse Practitioner Padgett VSC, Kartik Referring Unavailable Chasidy Norton Attending Unavailable Padgett VSC, Kartik Primary Care Unavailable Padgett VSC, Kartik Primary Care Unavailable Borruso, Eulogio Referring Unavailable Borruso, Eulogio Attending Unavailable Padgett VSC, Kartik Primary Care Unavailable Padgett VSC, Kartik Referring Unavailable Borruso, Eulogio Attending Unavailable Padgett VSC, Kartik Primary Care Unavailable Borruso, Eulogio Consulting Unavailable Borruso, Eulogio Referring Unavailable Borruso, Eulogio Attending Unavailable Padgett VSC, Kartik Primary Care Unavailable Borruso, Eulogio Referring Unavailable Borruso, Eulogio Attending Unavailable Elbaruso, Eulogio Consulting Unavailable Padgett VSC, Kartik Primary Care Unavailable Borruso, Eulogio Attending Unavailable Padgett VSC, Kartik Referring Unavailable Padgett VSC, Kartik Primary Care Unavailable Padgett VSC, Kartik Referring Unavailable Borruso, Eulogio Attending Unavailable Padgett VSC, Kartik Primary Care Unavailable Padgett VSC, Katrik Referring Unavailable Daniele Matthews Attending Unavailable Brooke Liu Attending Unavailable Padgett VSC, Kartik Primary Care Unavailable Padgett VSC, Kartik Referring Unavailable Padgett VSC, Kartik Primary Care Unavailable Dg Flores Attending Unavailable Brooke Liu Attending Unavailable Padgett VSC, Kartik Primary Care Unavailable Padgett VSC, Kartik Referring Unavailable Warner FARMHAND, Robyn Referring Unavailable Warner FARMHAND, Robyn Attending Unavailable Padgett VSC, Kartik Primary Care Unavailable Warner FARMHAND, Robyn Referring Unavailable Warner FARMHAND, Robyn Attending Unavailable Padgett VSC, Kartik Primary Care Unavailable Noe, Brooke Referring Unavailable Noe Brooke Attending Unavailable Padgett VSC, Kartik Primary Care Unavailable Padgett VSC, Kartik Primary Care Unavailable Daryl Peralta Referring Unavailable Daryl Peralta Attending Unavailable Padgett VSC, Kartik Primary Care Unavailable Danny Pate Attending Unavailable Padgett VSC, Kartik Primary Care Unavailable Borruso, Eulogio Referring Unavailable Borruso, Eulogio Attending Unavailable Allergies Allergy Classification Reported Allergen(s) Allergy Type Date of Onset Reaction(s) Facility (16 sources) Amoxicillin; Translations: [AMOXICILLIN] Drug Allergy 04-09-2024 Rash [facility] (1 source) Amoxicillin Drug Allergy 03-12-2025 [facility] Repository Medications Current Medications Medication Drug [...] conjunction with the immunization order to satisfy [place] Board of Pharmacy Positive ID requirements for [...] Start: 09-11-2023 take 2 tablets by mo [facility] once daily at bedtime, then take 2 tablets by mouth once daily traZODone (DESYREL) 50 mg tablet Take 100 mg by mouth daily at bedtime. 100 mg daily 09/11/2023 Active Start: 09-11-2023 take 1 tablet by tamra once daily at bedtime traZODone (DESYREL) 50 [...] other NSAIDS while on this medication Lacto No.31-Lootxl-Sdu- Larch (Women's Probiotic) 25B cell-25B cell-50 mg capsule (13 sources) Start: 11-29-2021 End: 05-20-2024 Lacto No.94-Wshgwh-Iao- Larch (Women's Probiotic) 25B cell-25B cell-50 mg capsule Discontinued NMA PO November 29, 2021 12:00am May 20, 2024 11:29am Start: 11-29-2021 Lacto No.76-Bi ucku-Ljl-Telbr (Women's Probiotic) 25B cell-25B cell-50 mg capsule [...] current use of drug therapy; Translations: [Other group home (current) drug therapy] 12-19-2024 Episodic Other aftercare (2 sources) 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; Translations: [Encounter for long-term [...] Onset: 01-06-2025 Chronic Other nervous system disorders (1 source) Carpal tunnel syndrome, bilateral upper limbs; Translations: [Carpal tunnel syndrome, bilateral upper limbs] Onset: 09-26-2024 Chronic Other nervous system disorders (5 sources) [...] metabolic disease; Translations: [History of obesity] Onset: 06-28-2024 Episodic Unclassified (1 source) Requires vaccination Unclassified (1 source) Chronic right shoulder pain Results Test Name Value Interpretation Reference Range Facility Brain/Head without Contrasto n 03-12-2025 Brain/Head without Contrast [facility] Imaging Services [address] [place] [address] Brain/Head without Contrast MR#: [id number] Acct: [id number] Name: DO OLSON Rep #: [id number] : 1980 F 44 From: Melquiades lewis MD PCP: KYRA Riddle Status: REG ER Study: Brain/Head without Contrast Date of Exam: 02/25 11/19 Exam# [id number] Ordering Dr: Danny Pate DO PROCEDURE: BRAIN/HEAD WITHOUT CONTRAST 03/12/2025 REASON FOR EXAM: HEADACHE FELL FROM HORSE TECHNIQUE: Procedure Code: CTBR Modality: CT Procedure: BRAIN/HEAD WITHOUT CONTRAST Coronal and Sagittal reconstruction series were provided. One or more dose reduction techniques were used (e.g., Automated exposure control, adjustment of the mA and/or kV according to patient size, use of iterative reconstruction technique. RADIATION DOSE SUMMARY: CTDI Vol 44.99 mGy DLP :846.73 mGycm COMPARISON: none FINDINGS: The visualized brain parenchyma shows normal appearance. No focal parenchymal abnormalities are demonstrated. Leavitt-white matter differentiation is maintained. Normal CT appearance of the posterior fossa structures. No intracerebral or extra-axial hemorrhage. No midline shifts or deformity. Normal size and configuration of the cerebral ventricles. No definite calvarial fractures. The osseous structures in the skull base are unremarkable. Paranasal sinuses show minimal left maxillary sinusitis CT/Brain/Head without Contrast IMPRESSION: No intracerebral or extra-axial hemorrhage. No acute cerebrovascular insult. If clinical symptoms persist, further evaluation with MRI may be considered as clinically warranted. Unremarkable non-enhanced CT study for the brain. Reading Location: [place] [address] CC: FARMHANDUlisesC Kartik Padgett; Dr. Danny Pate DO Neurology Physician Assistant: Signed Normal [facility] Emergency Department Summary on 03-12-2025 Emergency Department Summary [facility] Medical Records Department [address] [place] [address] Emergency Department Summary 03/12/25 MR#: [id number] Acct: [id number] Name: DO OLSON Rep #: [id number] : 1980 44 From: Danny Pate DO PCP: KYRA Riddle Status:REG ER Location: ED HPI History of Present Illness Chief Complaint: Headache Narrative Narrative: Patient is a 44-year-old female with a past medical history of anxiety who presents to the emergency department with a chief complaint of headache and neck pain. States that on of this past week she was thrown from her horse falling backwards. She states that she does not believe that she hit her head she states that she does not believe that she lost consciousness. States that she has had a headache since then however noted that the past few days this has been progressively worsening prompting her to come here for further evaluation management. States that Tylenol and ibuprofen is not touching her headache. States that she has been very nauseous lately. Denies any vomiting PFSH PFSH Medical History Former smoker Wears glasses Accident in home Puncture wound of foot, left Obesity (BMI 30.0-34.9) Anxiety Home Medications ???Medication ???Instructions ???Recorded ???Last Taken ???Type fexofenadine 180 mg tablet 180 mg PO DAILY PRN allergic 07/20 Unknown History (Melinda Allergy) symptoms collagen SUPPELEMENT 1 dose PO DAILY 05/20/24 06/02/24 History trazodone 50 mg tablet 50 mg PO QHS PRN sleep 05/20/24 History tirzepatide 7.5 mg/0.5 mL 7.5 mg subcut QWEEK 12/16/2412/17 History subcutaneous pen injector (Mounjaro) cyclobenzaprine 10 mg tablet 10 mg PO TID PRN muscle spasm #20 03/12/25 Unknown Rx tabs fluoxetine 20 mg capsule 40 mg PO DAILY 03/12/25 Unknown Hi story Allergy/AdvReac Type Severity Reaction Status Date / Time amoxicillin Allergy Rash Verified 03/12/25 06:06 Family History Other Cervical cancer Heart disease Melanoma Mental disorder Myocardial infarction Ovarian cancer Surgical History History of carpal tunnel surgery of right wrist Hx of surgical procedure History of breast augmentation History of wisdom tooth extraction History of hysterectomy H/O lumpectomy Social History Smoking Status: Former smoker alcohol intake: current alcohol intake frequency: holidays/special occasions only substance use type: does not use ROS ROS ED ROS Narrative Constitutional: Denies any fevers or chills complains of headache as noted above denies lightheadedness or dizziness Eyes: Denies double vision blurry vision Cardiovascular: Denies chest pain Abdomen: Complains of nausea as noted above states that she is having normal bowel movements : Denies urinary symptoms states that she is urinating normally for self Neurological: Denies any numbness, weakness, tingling Musculoskeletal: Complains of neck pain as noted above Skin: Denies any rashes or lesions EXAM Physical Exam Narrative Exam Narrative: General: Patient was lying in bed rest comfortably did not appear to be acute distress Head: Atraumatic, normocephalic Eyes: PERRL bilaterally, EOMI bilateral, no conjunctival injection noted Neck: Soft, supple, trachea midline Cardiovascular: Patient has regular rate and rhythm Respiratory: Clear to auscultation bilaterally Musculoskeletal: Patient has no midline tenderness to palpation in the cervical spine, no tenderness palpation midline of the thoracolumbar spine she does have tenderness palpation of the quadratus lumborum region Extremities: +5/5 strength noted in the bilateral lower extremities, radial pulses +2/4 in the bilateral extremities Neurological: Patient following commands knew that she was at [facility] the year is 2024 sensation grossly intact Skin: Warm, dry, intact no rashes or lesions noted Const Vital Signs: 03/12/25 06:06 Temperature 98 F Temperature Source Oral Pulse Rate 87 Respiratory Rate 16 Blood Pressure 114/83 H Blood Pressure Mean 93 Pulse Ox 98 Oxygen Delivery Method Room Air MDM MDM MDM Narrative Medical decision making narrative: Patient is a 44-year-old female who presented to the emergency department the chief complaint of headache. On the differential diagnose includes but limited to intracranial hemorrhage, chronic subdural, cervical spine fracture, musculoskeletal strain, tension headache. Once workup is obtained and reviewed she will be reevaluated. Patient be given IV fluids, gram of Tylenol, 25 mg of Benadryl int (more content not included)... Normal [facility] Spine Cervical without Contr ason 03-12-2025 Spine Cervical without Contras [facility] Imaging Services [address] [place], [place] [address] Spine Cervical without Contras MR#: [id number] Acct: [id number] Name: DO OLSON Rep #: [id number] : 1980 F 44 From: Melquiades lewis MD PCP: KYRA Riddle Status: REG ER Study: Spine Cervical without Contras Date of Exam: Exam# [id number] Ordering Dr: Danny Pate DO PROCEDURE: SPINE CERVICAL WITHOUT CONTRAS 03/12/2025 REASON FOR EXAM: FALL FROM HORSE TECHNIQUE: Procedure Code: CTS Modality: CT Procedure: SPINE CERVICAL WITHOUT CONTRAS Coronal and Sagittal reconstruction series were provided. One or more dose reduction techniques were used (e.g., Automated exposure control, adjustment of the mA and/or kV according to patient size, use of iterative reconstruction technique. RADIATION DOSE SUMMARY: CTDI Vol 16.68 mGy DLP :323.70 mGycm COMPARISON: none FINDINGS: Straightened cervical curve denoting myospasm. No vertebral fractures or acute dislocation. The vertebral bodies show no structural collapse or posterior neural elements fractures. No facet dislocation. Multilevel degenerative facet arthropathy. Level by Level analysis: C1-C2: Intact atlanto-axial articulations with degenerative changes C2-C3: No central canal or neuroforaminal stenosis. C3-C4: No central canal or neuroforaminal stenosis. C4-C5: No central canal or neuroforaminal stenosis. C5-C6: diffuse disc bulge/osteophyte complex lesion with uncovertebral arthropathy indenting the theca and encroaching upon the related neural exit foramina. C6-C7: No central canal or neuroforaminal stenosis. No paraspinal masses. CT/Spine Cervical without Contras IMPRESSION: Straightened cervical lordosis denoting myospasm. No vertebral fractures or acute dislocation. C5-C6: diffuse disc bulge/osteophyte complex lesion with uncovertebral arthropathy encroaching upon the related neural exit foramina. Reading Location[facility] CC: KYRA Padgett; Dr. Danny Pate DO Neurology Physician Assistant: Signed [facility] Breast imaging reportOrdered By: Junito Lora on 02-25-2025 Study report [facility] Imaging Services [address] [place] [address] SCRN MAMM (CAD)W/RJ BILAT MR#: [id number] Acct: [id number] Name: DO OLSON Rep #: [id number] : 1980 F 44 From: Christen Lora MD PCP: KYRA Riddle Status: REG CLI Study:SCRN MAMM (CAD)W/RJ BILAT Date of Exa m: 02/24/25 Exam# [id number] Ordering Dr: Robyn Warner NP FARMHAND-C EXAM: SCRN MAMM (CAD)W/RJ BILAT DATE: 02/24/2025 [...] be mailed to the patient. Reading Location: [facility] CC: KYRA Warner; KYRA Padgett ~ Neurology Physician Assistant: Signed [facility] SCRN MAMM (CAD)W/RJ BILATo n 02-24-2025 SCRN MAMM (CAD)W/RJ BILAT [facility] Imaging Services [address] [place] [address] SCRN MAMM (CAD)W/RJ BILAT MR#: [id number] Acct: [id number] Name: DO OLSON Rep #: [id number] : 1980 F 44 From: Junito Lora MD PCP: KYRA Riddle Status: REG CLI Study: SCRN MAMM (CAD)W/RJ BILAT Date of Exam: 01/28 Exam# [id number] Ordering Dr: Robyn Warner NP FARMHAND-Alex EXAM: SCRN MAMM (CAD)W/RJ BILAT DATE: 02/24/2025 [...] be mailed to the patient. Reading Location: [id number] CC: KYRA Warner; KYRA Padgett Neurology Physician Assistant: Signed [facility] Margi 01-14-2025 CNPN Telephone (OBGYWM) DO OLSON ([id number]) 1980 F Date Time Provider Department 01/14/25 ROBYN WARNER During your visit today, we recorded the following information about you: Linwood Wiseman RN 01/14/2025 11:51 AM Signed Lab results from [facility] collected on 12/30/24 on AG desk for review. Linwood Wiseman RN Allergies As of Date: 01/14/2025 Noted Allergy Reaction AMOXACILLIN (AMOXICILLIN) 04/09/2024 2 - Rash Date Reviewed: 12/19/2024 Reviewed by: Robyn Warner APRN.HEAD SHIPPER - Fully Assessed Reason for Visit: Outside [...] Status:Closed by LINWOOD WISEMAN on 01/14/25 Normal [facility] Anion gap in Serum or Plasma Ordered By: Robyn Warner on 12-30-2024 Anion gap [Moles/Vol] 11 mmol/L 5-15 [facility] BUN/creatinine ratioOrdered By: Robyn Warner on 12-30-2024 Urea nitrogen/Creatinine [Mass ratio] 17.1 mg/mg 10-20 [facility] Bilirubin, totalOrdered By: Robyn Warner on 12-30-2024 Bilirubin [Mass/Vol] 0.28 mg/dL 0.00-1.30 [facility] Carbon dioxide, total [Moles /volume] in Central venous bloodOrdered By: Robyn Warner on 12-30-2024 CO2 [Moles/Vol] 24.8 mmol/L 21.0-32.0 [facility] Chloride assayOrdered By: Regine Warner on 12-30-2024 Chloride [Moles/Vol] 106 mmol/L 98-108 [facility] Comprehensive Metabolic Prof ilon 12-30-2024 Albumin [Mass/Vol] 4.1 g/dL Normal 3.5-5.0 [facility] Comment on above: Performed By: #### L 500.4050 ####[facility] [address] [place], [place], [id number] Albumin/Globulin [Mass ratio] 1.9 {ratio} Normal 0.9-2.4 [facility] Comment on above: Performed By: #### L 500.4050 ####[facility] [address] [place], [place], [id number] ALK PHOS 67 U/L Normal 35-104 [facility] Comment on above: Performed By: #### L 500.4050 ####[facility] [address] [place], [place], [address] ALT [Catalytic activity/Vol] 16 U/L Normal <=34 [facility] Comment on above: Performed By: #### L 500.4050 ####[facility] [address] [place], [address] AST [Catalytic activity/Vol] 21 U/L Normal <=31 [facility] Comment on above: Performed By: #### L 500.4050 ####[facility] [address] [place], [address] Bilirubin [Mass/Vol] 0.28 mg/dL Normal 0.00-1.30 [facility] Comment on above: Performed By: #### L 500.4050 ####[facility] [address] [place], [address] BUN/CRE 17.1 RATIO Normal 10-20 [facility] Comment on above: Performed By: #### L 500.4050 ####[facility] [address] [place], [address] Calcium [Mass/Vol] 8.9 mg/dL Normal 7.6-11.0 [facility] Comment on above: Performed By: #### L 500.4050 ####[facility] [address] [place], [address] Chloride [Moles/Vol] 106 mmol/L Normal 98-108 [facility] Comment on above: Performed By: #### L 500.4050 ####[facility] [address] [place], [address] CO2 [Moles/Vol] 24.8 mmol/L Normal 21.0-32.0 [facility] Comment on above: Performed By: #### L 500.4050 ####[facility] [address] [place], [address] Creatinine [Mass/Vol] 0.74 mg/dL Normal 0.70-1.20 [facility] Comment on above: Performed By: #### L 500.4050 ####[facility] [address] [place], [address] GAP 11 Normal 5-15 [facility] Comment on above: Performed By: #### L 500.4050 ####[facility] [address] [place], [address] GFR/1.73 sq M.predicted among non-blacks MDRD (S/P/Bld) [Vol rate/Area] 103 mL/min/{1.73_m2} Normal >60 [facility] Comment on above: Result Comment: mL/m in/1.73m2 CKD-EPI Creatinine Equation (2020) Performed By: #### L 500.4050 ####[facility] [address] [place], [address] Globulin (S) [Mass/Vol] 2.2 g/dL Normal 2.2-4.2 [facility] Comment on above: Performed By: #### L 500.4050 ####[facility] [address] [place], [address] Glucose [Mass/Vol] 97 mg/dL Normal 70-99 [facility] Comment on above: Performed By: #### L 500.4050 ####[facility] [address] [place], [address] Potassium [Moles/Vol] 4.0 mmol/L Normal 3.3-5.1 [facility] Comment on above: Performed By: #### L 500.4050 ####[facility] [address] [place], [address] Sodium [Moles/Vol] 141 mmol/L Normal 133-145 [facility] Comment on above: Performed By: #### L 500.4050 ####[facility] [address] [place], [address] T PROT 6.3 g/dL Normal 5.9-8.4 [facility] Comment on above: Performed By: #### L 500.4050 ####[facility] [address] [place], [address] Urea nitrogen [Mass/Vol] 13 mg/dL Normal 4-19 [facility] Comment on above: Performed By: #### L 500.4050 ####[facility] [address] [place], [address] Discharge Instructionon Discharge Instruction [facility] Medical Records Department [address] [place] [address] Instructions for Home/Discharge Instructions 12/30/24 0801 MR#: [id number] Acct: [id number] Name: DO OLSON Rep #: [id number] : 1980 44 From: Eulogio Mello DO PCP: Kartik Padgett NP-C Status:DEP [facility] Discharge Instructions Diet [...] Eulogio Mello Primary Care Provider: Kartik Padgett [facility] Instructions Print Language: Citizen Of [place] Discharge Orders/Prescriptions Prescriptions: New hydrocodone-acetaminoph en 5-325 [...] DAILY Referrals / Follow Up: Kartik Padgett, FARMHAND-C [Primary Care Provider] - Disposition Disposition (needs filled in before D/C Order can be placed): Home, Self Care 12/30/24 1030 Eulogio Mello DO CC: FARMHAND-C Kartik Padgett Signed Normal [facility] Glomerular filtration rate ( GFR) estimation/1.73 sq m using serum, plasma, or whole bOrdered By: Robyn Warner on 12-30-2024 GFR/1.73 sq M.predicted among non-blacks MDRD (S/P/Bld) [Vol rate/Area] 103 mL/min/{1.73_m2} >60 [facility] Comment on above: mL/min/1.73m2 CKD-EP I Creatinine Equation (2020) Laboratory - Chemistry and C hemistry - challengeOrdered By: Robyn Warner on 12-30-2024 AST [Catalytic activity/Vol] 21 U/L <32 [facility] MR/POSTOP.ANEon 12-30-2024 MR/[facility]OP[facility] Medical Records Department [address] [place] [address] Anesthesia Postop Eval I 12/30/24 0800 MR#: [id number] Acct: [id number] Name: DO OLSON Rep #: [id number] : 1980 44 From: Cristina Cline CRNA PCP: KYRA Riddle Status:REG SDC Y Race: C Location: [address] Anesthesia: Postop Eval I Current Vital Signs [...] 1 completed: Yes 12/30/24801 Date Cristina Cline LIME SLAKER Cosigner Signature: Date CC: Signed [facility] MR/HEKFRJRR4zo 12-30-2024 /[facility] Medical Records Department [address] [place] [address] Anesthesia Postop Eval II 12/30/242017 MR#: [id number] Acct: [id number] Name: DO OLSON Rep #: [id number] : 1980 44 From: Neil Worthington MD PCP: KYRA Riddle Status:[facility] Y Race: C Location: [facility] Anesthesia Postop Eval I Sum Postop Eval Completion status Anesthesia document: Postop Eval 1 completed: Yes Anesthesia Postop Eval I Summary Anesthesia Postop Eval I Summary: Anesthesia Postop Eval I: Assessment Summary Airway patent Yes 12/30/24 08:02 LIME SLAKER.SJPATRIZIA Spontaneous unlabored Yes 12/30/24 08:02 LIME SLAKER.SJPATRIZIA respirations Mental status Awake,Calm 12/30/24 08:02 LIME SLAKER.SJAN nausea No 12/30/24 08:02 LIME SLAKER.SJAN Vomiting No 12/30/24 08:02 LIME SLAKER.SJPATRIZIA Anesthesia Postop Eval I: Fluid Summary Crystalloid volume administer 500 12/30/24 08:02 LIME SLAKER.SJAN (ml) Colloids volume administered ( ml) Blood Product volume administered (ml) Total IV fluid infused 500 12/30/24 08:02 DEMETRA Anesthesia Postop Eval I: Summary Notes Anesthesia Complication No 12/30/24 08:02 DEMETRA Anesthesia Complication Comment: Post-operative progress note Anesthesia: Postop Eval II Evaluation Mental status: Awake and Calm Pain Level: 1 nausea: No Vomiting: No Complications Anesthesia Complication: No 12/30/242017 Date Neil Worthington MD Cosigner Signature: Date CC: Signed [facility] Operative Reporton 5 Operative Report [facility] Medical Records Department [address] [place] [address] Operative Report 12/30/24 0759 MR#: [id number] Acct: [id number] Name: DO OLSON Rep #: [id number] : 1980 44 From: Eulogio Mello DO PCP: KYRA Riddle Status:REG [facility] Location: [place] [address] Operative Report (Standard) Operative Information Date of Procedure: 12/30/24 Pre-Operative Diagnosis: Left carpal tunnel syndrome Post-Operative Diagnosis: Same Surgery/Procedure Performed: Left open carpal tunnel release wild life photographer: Yes Filling Carrier: Sukhdeep Addison Tasks completed by certified teacher assistant: Opening closing and Retracting Type of [...] transverse carpal ligament Complications Complications: No 12/30/24 08 Cosigner Signature (if applicable): CC: KYRA Padgett; Dr. Eulogio Mello DO Signed [facility] Potassium measurement (mass/ volume)Ordered By: Robyn Warner on 12-30-2024 Potassium (Unsp spec) [Mass/Vol] 4.0 mmol/L 3.3-5.1 [facility] Serum creatinine measurement (mass/volume)Ordered By: Robyn Warner on 12-30-2024 Creatinine [Mass/Vol] 0.74 mg/dL 0.70-1.20 [facility] Serum globulin measurementOr dered By: Robyn Warner on 12-30-2024 Globulin (S) [Mass/Vol] 2.2 g/dL 2.2-4.2 [facility] Serum glucose measurement (m ass/volume)Ordered By: Robyn Warner on 12-30-2024 Glucose [Mass/Vol] 97 mg/dL 70-99 [facility] Serum or plasma alanine ramos otransferase (ALT) measurementOrdered By: Robyn Warner on 12-30-2024 ALT [Catalytic activity/Vol] 16 U/L <35 [facility] Serum or plasma albumin tyrell urement (mass/volume)Ordered By: Robyn Warner on 12-30-2024 Albumin [Mass/Vol] 4.1 g/dL 3.5-5.0 [facility] Serum or plasma albumin/glob ulin mass ratioOrdered By: Robyn Warner on 12-30-2024 Albumin/Globulin [Mass ratio] 1.9 {ratio} 0.9-2.4 [facility] Serum or plasma alkaline valentino sphatase measurementOrdered By: Robyn Warner on 12-30-2024 ALP [Catalytic activity/Vol] 67 U/L 35-104 [facility] Serum or plasma calcium tyrell urement (mass/volume)Ordered By: Robyn Warner on 12-30-2024 Calcium [Mass/Vol] 8.9 mg/dL 7.6-11.0 [facility] Serum or plasma urea nitroge n measurement (mass/volume)Ordered By: Robyn Warner on 12-30-2024 Urea nitrogen [Mass/Vol] 13 mg/dL 4-19 [facility] Sodium levelOrdered By: Robyn Warner on 12-30-2024 Sodium [Moles/Vol] 141 mmol/L 133-145 [facility] Total proteinOrdered By: Robyn Warner on 12-30-2024 Protein [Mass/Vol] 6.3 g/dL 5.9-8.4 [facility] CNOVon 12-19-2024 CNOV Office Visit (OBGYWM ) DO OLSON ([id number]) 1980 F Date Time Provider Department 12/19/24 7:00 AM ROBYN WARNER During your visit today, we recorded the following information about you: Pulse Blood pressure Weight 92/minute 108/76 73.5 kg Robyn Warner APRN.HEAD SHIPPER 12/19/2024 7:45 AM Addendum -- Metformin can [...] protein AND 2g carb Two Good Lowfat Bahamian Yogurt, Lower Sugar - 12g protein AND [...] oz is 28 gm protein Beef, Chicken, [place], Pork, Eli 1 oz 7g Fish, Tuna [...] a meal replacement) ___ Protein AND carbs Beef/[place] Jerky 1 oz dried 10-15g protein - check carb count, can be high if sugar added Slim Devante - 6 gm protein and 4 net carb Great Value original turkey sausage sticks - 7 gm protein and 2 gm carb [facility] Original smoked sausage sticks - 8 gm protein and 0 carb Imitation Crab Meat 1 oz - 2g protein AND 4g carb Milk, skim 2% or 1% 8 oz - 8g protein AND 12g carb Fairlife 2% milk 8 oz -13g protein AND 6g carb Bahamian yogurt Full Fat Bahamian Yogurt 1 cup - 20.4g protein AND 9.1g carb 2% Bahamian Yogurt 1 cup - 22.7g protein AND 9.1g carb 0% (fat-free) Bahamian Yogurt - 1 cup 24g protein AND 9.3g carb Aldi Protein Bahamian yogurt single svg - 13/g15g protein AND 7g carb Chobani Zero Sugar single svg: - 12g protein AND 5g carb Dannon Bahamian Light + Fit 1 single svg - 12g protein AND 9g carb Oikos Pro single svg - 20g protein AND 8g carb Oikos Triple Zero Bahamian Nonfat Yogurt 1 single svg - 15g protein AND 7g carb :ratio, KETO Friendly Dairy Snack 1 single svg - 15g protein AND 2g carb :ratio Protein 1 single svg - 25g protein AND 8g carb Two Good Lowfat Bahamian Yogurt, [place], Lower Sugar - 12g protein AND 2g carb Yoplait Protein 1 single svg 15g protein AND 5g carb Dairy Free - [place] unsweetened Bahamian almond/soy 15g protein AND 3g carb Dairy Free - True Goodness by [facility] coconut-based yogurt alternative 1 g protein 1 g net carb 180 phil Drinkable yogurts: Chobani drinkable 15g, 20g and 30g protein AND 18 carb (too (more content not included)... Normal [facility] Orthopedic Visit Reporton Orthopedic Visit Report [facility] [address] [place] [address] OFFICE VISIT Date of Service: 09/26/24 MR#: [id number] Acct: [id number] Name: DO OLSON Rep #: [id number] : 1980 Provider: Dr. Eulogio Denny so, DO Age/Sex: 44/F Location: [facility] Status: Signed Intake Vital Signs 09/22/24 11:14 [...] Performing Provider: Eulogio Mello DO Performing Location: [facility] Administered by: Eulogio Mello DO on 09/26/24 09:09 Dose Route Admin Location Dispensed Lot Number Expiration Date NDC Man ufacturer 20 mg intra-articular left wrist carpal tunnel 0.5 mL [id number] 12/26/25 0009 -0280-03 [facility] Supplemental Info 06/10/2024: Right open carpal tunnel release left carpal tunnel injection 03/12/2024 EMG bilateral upper extremity: 1. Electrodiagnostic findings suggestive of bilateral median mononeuropathy. This is consistent with a mild to mod (more content not included)... Normal [facility] CNOVon 09-25-2024 CNOV Office Visit (OBGYWM ) DO OLSON ([id number]) 1980 F Date Time Provider Department 09/25/24 3:30 PM ROBYN WARNER During your visit today, we recorded the following information about you: Pulse Blood pressure Weight 65/minute 116/76 73.5 kg Robyn Warner APRN.HEAD SHIPPER 09/25/2024 4:47 PM Signed Some documentation from [...] medications: None Previous Diet (initial appointment): Awake B - 629-7 - 30 gm protein shake or granola or fruit with coffee with with flavoring syrup and sweetened creamer. S - 10-0 pretzels or apple or veg or HB eggs L - 1200 if work - Salad or 1/2 sandwich or soup or pizza/home - protein shake and fruit or veg or yogurt and granola S - none D - 5702-0185 protein and veg and small carb - potato/pasta/corn/rice No dessert S - rare - popcorn or ice cream Fluids: water Bedtime - 8182-0358 Eating Disorder binge eating Dietary changes: B [...] - E (more content not included)... Normal [facility] Inital Evaluation (1) - PTon 08-29-2024 Inital Evaluation (1) - PT [facility] Health[address] [place] [address] / REHABILITATION SERVICES INITIAL EVALUATION MR#: [id number] Acct: [id number] Name: DO OLSON Rep #: [id number] : 1980 44 From: Harrison Smith PT, ATC Referring Dr.: Dr. Daryl Peralta MD Status: REG RCR Insurance: [employer] SELF PAY INSURANCE Patient's Visit Information Visit [...] to be FAXED BACK to us at [phone] for Medicare purposes. For Medicare only, by signing this I certify the plan of care. Please let me know if there are questions or concerns regarding this plan of care. Physician Signature: Date: 08/29/24 1353 CC: KYRA Padgett; Dr. Daryl Peralta MD [facility] Signed Normal [facility] Lower Ext/No Jt/w/oon 2024 Lower Ext/No Jt/w/o [facility] Imaging Services [address] [place] [address] Lower Ext/No Jt/w/o MR#: [id number] Acct: [id number] Name: DO OLSON Rep #: [id number] : 1980 F 44 From: Fausto Glover PCP: KYRA Riddle Status: REG CLI Study: Lower Ext/No Jt/w/o Date of Exam: 08/07/24 Exam# [id number] Ordering Dr: Brooke Liu PROCEDURE: LOWER EXT/NO [...] moderate amount of associated hematoma. Reading Location: [address] CC: KYRA Padgett; KYRA Liu Neurology Physician Assistant: Signed [facility] Magnetic resonance imaging r eportOrdered By: Fausto Garcia on 08-07-2024 Study report [facility] Imaging Services [address] [place] [address] Lower Ext/No Jt/w/o MR#: [id number] Acct: [id number] Name: DO OLSON Rep #: [id number] : 1980 F 44 From: Leodan Garcia MD PCP: KYRA Riddle Status: REG CLI Study:Lower Ext/No Jt/w/o Date of Exam: 08/07/24 Exam# [id number] Ordering Dr: Sophie Liu PROCEDURE: LOWER EXT/NO [...] moderate amount of associated hematoma. Reading Location: [address] CC: KYRA Padgett; KYRA Liu ~ Neurology Physician Assistant: Signed [facility] Orthopedic Visit Reporton Orthopedic Visit Report [facility] [address] [place] [address] OFFICE VISIT Date of Service: 08/07/24 MR#: [id number] Acct: [id number] Name: DO OLSON Rep #: [id number] : 1980 Provider: KYRA perdomo Age/Sex: 44/F [facility] Status: Signed Intake Vital Signs 06/10/24 06:13 08/07/24 15:20 Height 5 ft 7 in 5 ft 7 in Intake Visit Reasons: RIGHT LEG Chief Complaint: ST, TRUJILLO, cough, congestion Allergies amoxicillin Allergy (Verified 06/10/24 06:11) Rash [facility] Medical History Wears glasses Smoker [...] and the decisions made by me, Brooke Liu, FARMHAND-C 08/07/24 1543. Part of today???s visit was [...] this. Coding Level of Care Code Attention Project Developer Diagnoses Tear of right hamstring S76.311A Right [...] Crutches provi (more content not included)... Normal [facility] Femur Min 2 Viewson 08-05-19 25 Femur Min 2 Views [facility] Imaging Services [address] [place], [place] [address] Femur Min 2 Views MR#: [id number] Acct: [id number] Name: DO OLSON Rep #: [id number] : 1980 F 44 From: Nnamdi Pagan MD PCP: KYRA Riddle Status: DEP AMB Study: Femur Min 2 Views Date of Exam: 08/04/24 Exam# [id number] Ordering Dr: Brooke Liu PROCEDURE: FEMUR MIN 2 VIEWS REASON FOR EXAM: Injury, pain TECHNIQUE: 2 view(s) of right femur, 4 total images COMPARISON: None. FINDINGS: RIGHT FEMUR: No fracture. No periosteal reaction identified. No osseous lesion seen. RAD/Femur Min 2 Views IMPRESSION: Study appears within limits. Reading Location: [facility] CC: KYRA Padgett; KYRA Liu Neurology Physician Assistant: Signed [facility] Orthopedic Visit Reporton Orthopedic Visit Report [facility] [address] [place] [address] [address] [place] [address] OFFICE VISIT Date of Service: 08/04/24 MR#: [id number] Acct: [id number] Name: DO OLSON Rep #: [id number] : 1980 Provider: KYRA perdomo Age/Sex: 44/F Location: [facility] Status: Signed Intake Vital Signs 06/10/24 06:13 Height 5 ft 7 in Intake Visit Reasons: right hamstring Allergies amoxicillin Allergy (Verified 06/10/24 06:11) Rash [facility] Medical History Wears glasses Smoker [...] provided and the decisions made by , Brooke Liu, KYRA 08/04/24 6980. Part of today???s visit was documented by [...] for follow-up h (more content not included)... [facility] Pelvis 1 or 2 Viewson 2024 Pelvis 1 or 2 Views [facility] Imaging Services [address] [place] [address]681 Pelvis 1 or 2 Views MR#: [id number] Acct: [id number] Name: DO OLSON Rep #: [id number] : 1980 F 44 From: Nnamdi Pagan MD PCP: KYRA Riddle Status: DEP AMB Study: Pelvis 1 or 2 Views Date of Exam: 08/04/24 Exam# [id number] Ordering Dr: Brooke Liu PROCEDURE: PELVIS 1 OR 2 VIEWS REASON FOR EXAM: Pain, injury TECHNIQUE: 1 view(s) of the pelvis. COMPARISON: None FINDINGS: No fracture or dislocation. Symmetric appearing SI joints and pubic symphysis appear within limits. No osseous lesion identified. RAD/Pelvis 1 or 2 Views IMPRESSION: No fracture or dislocation. Reading Location: [facility] CC: KYRA Padgett; KYRA Liu Neurology Physician Assistant: Signed [facility] CNOVon 07-03-2024 CNOV Office Visit (OBGYWM ) DO OLSON ([id number]) 1980 F Date Time Provider Department 07/03/24 2:30 PM ROBYN WARNER During your visit today, we recorded the following information about you: Pulse Blood pressure Weight 95/minute 113/77 71.7 kg Robyn Warner APRN.HEAD SHIPPER 07/03/2024 8:40 PM Signed Some documentation from [...] and granola S - none D - 0836-5746 protein and veg and small carb - potato/pasta/corn/rice No dessert S - rare - popcorn or ice cream Fluids: water Bedtime - 5903-9368 Eating Disorder binge eating Dietary changes: B [...] Holter monitor normal 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 Normal [facility] Discharge Instructionon 05-28 Discharge Instruction [facility] Medical Records Department [address] [place] [address] Instructions for Home/Discharge Instructions 06/10/24 0756 MR#: [id number] Acct: [id number] Name: DO OLSON Rep #: [id number] : 1980 43 From: Eulogio Mello DO PCP: KYRA Riddle Status:REG SDC Discharge Instructions Diet Discharge Diet: No restrictions [...] Eulogio Mello Primary Care Provider: Kartik Padgett Instructions Print Language: Citizen Of [place] Discharge Orders/Prescriptions Prescriptions: New oxycodone 5 mg [...] DAILY Referrals / Follow Up: Kartik Padgett, FARMHAND-C [Primary Care Provider] - Disposition Disposition (needs filled in before D/C Order can be placed): Home, Self Care 06/10/24 0757 Eulogio Mello DO CC: FARMHAND-C Kartik Padgett Signed [facility] MR/POSTOP.[facility] 06-10-2024 MR/POSTOP.[facility] Medical Records Department [address] [place] [address] Anesthesia Postop Eval I 06/10/24 0803 MR#: [id number] Acct: [id number] Name: DO OLSON Rep #: [id number] : 1980 43 From: Nnamdi Gann CRNA PCP: KYRA Riddle Status:REG SDC Y Race: C Location: [place] [address] Anesthesia: Postop Eval I Current Vital Signs [...] 1 completed: Yes 06/10/24803 Date Nnamdi Gann LIME SLAKER Cosigner Signature: Date CC: Signed [facility] MR/LISUTOCM1xt 06-10-2024 MR/POSTOPAN2 [facility] Medical Records Department [address] [place] [address] Anesthesia Postop Eval II 06/10/24857 MR#: [id number] Acct: [id number] Name: DO OLSON Rep #: [id number] : 1980 43 From: Victor Manuel Rosas MD PCP: KYRA Riddle Status:[facility] Y Race: C Location: [facility] Anesthesia Postop Eval I Sum Postop Eval Completion status Anesthesia document: Postop Eval 1 completed: Yes Anesthesia Postop Eval I Summary Anesthesia Postop Eval I Summary: Anesthesia Postop Eval I: Assessment Summary Airway patent Yes 06/10/24 08:04 LIME SLAKER.RWOO Spontaneous unlabored Yes 06/10/24 08:04 LIME SLAKER.RUPA respirations Mental status Awake,Calm 06/10/24 08:04 LIME SLAKER.RWOO nausea No 06/10/24 08:04 LIME SLAKER.RWOO Vomiting No 06/10/24 08:04 LIME SLAKER.RUPA Anesthesia Postop Eval I: Fluid Summary Crystalloid volume administer 10 06/10/24 08:04 LIME SLAKER.RWOO (ml) Colloids volume administered ( ml) Blood Product volume administered (ml) Total IV fluid infused 10 06/10/24 08:04 LIME SLAKER.RUPA Anesthesia Postop Eval I: Summary Notes Anesthesia Complication No 06/10/24 08:04 LIME SLAKER.RUPA Anesthesia Complication Comment: Post-operative progress note Anesthesia: Postop Eval II Evaluation Mental status: Awake and Calm Pain Level: 0 nausea: No Vomiting: No Complications Anesthesia Complication: No 01/14/25 0858 Date Victor Manuel Majano Signature: Date CC: Signed [facility] Operative Reporton 5 Operative Report [facility] Medical Records Department [address] [place] [address] Operative Report 06/10/24 0754 MR#: [id number] Acct: [id number] Name: DO OLSON Rep #: [id number] : 1980 43 From: Eulogio Mello DO PCP: KYRA Riddle Status:[facility] Location: [place] [address] Operative Report (Standard) Operative Information Date of Procedure: 06/10/24 Pre-Operative Diagnosis: Bilateral carpal tunnel syndrome Post-Operative Diagnosis: Same Surgery/Procedure Performed: Right open carpal tunnel release left carpal tunnel injection wild life photographer: Yes Filling Carrier: Sukhdeep Addison Tasks completed by certified teacher assistant: Opening closing Type of Anesthesia: Local [...] 06/10/24 0756 Cosigner Signature (if applicable): CC: FARMHANDCorey Padgett; Dr. Eulogio Mello, DO Signed Normal [facility] MR/PATMarc 05-20-2024 MR/PAT.SARAH [facility] Medical Records Department [address] [place] [address] PAT - Anesthesia 05/20/24 1447 MR#: [id number] Acct: [id number] Name: DO OLSON Rep #: [id number] : 1980 43 From: Victor Manuel Rosas MD PCP: KYRA Riddle Status:PRE SDC Y Race: C Location: [facility] Pre-Assessment Diagnosis/Proposed Procedure Planned Operative Procedure(s): RT open Carpal Tunnel Release, LT carpal tunnel injection Anesthesia History Anesthesia History - drama director: Anesthesia History - drama director Hx Hospitalization No 05/20/24 10:34 Any Problems [...] take am of surgery PONV PONV - drama director: PONV - drama director Female No 05/20/24 10:34 HX of Motion Sickness No 05/20/24 10:34 HX of N/V After Surgery No 05/20/24 10:34 Non-Smoker No 05/20/24 10:34 Duration of Surgery greater No 05/20/24 10:34 than 60 minutes Number of Risk Factors PONV Score Height Weight Height Weight: Anesthesia: Height Weight Height 5 ft 7 in 12/12/23 06:35 Respiratory Assessment Respiratory Assessment - drama director: Respiratory Tract Infection Hx - drama director Hx Respiratory Tract Infection No 05/20/24 10:34 STOP Sleep Apnea STOP Sleep Apnea - drama director: STOP Sleep Apnea - drama director Hx Hypertension No 05/20/24 10:34 Hx Sleep [...] Tobacco Use History Tobacco Use History - drama director: Tobacco Use History - drama director Tobacco Use Smoking Status Current every day smoker 05/20/24 10:34 Hx Tobacco Use Yes 05/20/24 10:34 Years Smoking Packs Smoked per Day Smoking Cessation Date was Yes - quit smoking within 15 05/20/24 10:34 within the last 15 years years Hx Smoking Cessation Date 05/28/19 05/20/24 10:34 Hx Smoking Cessation Counseling Hematologic Medial History Hematologic Hx - drama director: Hematologic Medical Hx - documentation consultant Hx of Blood Transfusion No 05/20/24 10:34 Hx of Transfusion in last 3 No 05/20/24 10:34 Months Date of Last Transfusion (if within last 3 months) Ever experience any problems No 05/20/24 10:34 with transfusion(s)? Specify any problems Hx of Preganancy in last 3 No 05/20/24 10:34 Months Nurse Filling Out Transfusion JAZMIN 05/20/24 10:34 Questions: Date: 05/20/24 05/20/24 10:34 Time: 10:37 05/20/24 10:34 Patient unable to answer at this time (ie. confused, unrespo /Reproduction History /Reproductive History - drama director: /Reproductive Hx- drama director Hx Now No 05/20/24 10:34 Gestational Age [...] Date / Time (more content not included)... [facility] Office Visit (OBGYWM ) WHITNEYDO ([id number]) 1980 F Date Time Provider Department 04/09/24 11:30 AM ROBYN WARNER During your visit today, we recorded the following information about you: Pulse Blood pressure Weight 85/minute 122/76 70.8 kg Robyn Warner APRN.HEAD SHIPPER 04/09/2024 7:51 PM Signed Some documentation from [...] and granola S - none D - 3495-6929 protein and veg and small carb - potato/pasta/corn/rice No dessert S - rare - popcorn or ice cream Fluids: water Bedtime - 8716-5166 Eating Disorder binge eating Dietary changes: B [...] 24.43 kg (more content not included)... Normal [facility] Urgent Care Visit Reporton 1 06-01-2023 Urgent Care Visit Report [facility] [address], [address] [place], [place] [address] OFFICE VISIT Date of Service: 04/01/24 MR#: [id number] Acct: [id number] Name: DO OLSON Rep #: [id number] : 1980 Provider: DALY Wetzel Age/Sex: 43/F Location: [facility] Status: Signed Intake Vital Signs 12/12/23 06:35 04/01/24 06:11 Height 5 ft 7 in BP 126/64 H Blood Pressure Location Lt brachial Position Sitting Respiration 15 Pulse 87 Pulse Source NIBP Temp 98.7 F Temp Source Oral Pulse Oximetry (%) 97 Oxygen Delivery Method room air Intake Visit Reasons: ST/TRUJILLO/CONGESTION Chief Complaint: ST, TRUJILLO, cough, congestion Melangeur Operator Required: No Is patient in pain?: Yes [...] sooner shou (more content not included)... Normal [facility] Orthopedic Visit Reporton Orthopedic Visit Report [facility] [place] [facility] [address] [place] [address] [address] [place] [address] OFFICE VISIT Date of Service: 03/14/24 MR#: [id number] Acct: [id number] Name: DO OLSON Rep #: [id number] : 1980 Provider: Dr. Eulogio peralta DO Age/Sex: 43/F Location: [facility] Status: Signed Intake Vital Signs 12/12/23 06:35 Height 5 ft 7 in Intake Visit Reasons: BL HANDS Accompanied by: Self Is patient in pain?: No Allergies No Known Allergies Allergy (Verified 03/14/24 09:19) Medications ???Medication ???Instructions ???Recorded ???Confirmed ???Type Lactobacillus 25 billion cap PO 11/29/21 03/14/24 History cell-Bifido 25 billion rpsh-XQX-jinrj capsule (Women's Probiotic) fexofenadine 180 mg tablet [...] made by me, Dr. Eulogio Mello DO 03/14/24 0809. Part of today???s visit [...] relieve a (more content not included)... 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 Physical Exam Constitutional: She appears healthy. No distress. Results: recent labs reviewed with the patient. Outside labs: 12/27/2023 [facility] CBC WNL (more content not included)... Normal [facility] CNCOon 02-05-2024 CNCO HNO ID: [id number] Author: COORDINATOR, MAMMOGRAPHY, ? Service: ? Author Type: Physician Type: Letter Filed: 02/05/2024 06:25 Note Text: February 06, 2024 PID: [id number] Do Olson [address] [place] [address] Dear Mala Whitney, We are pleased to inform you that [...] report will be kept on file at [facility] as part of your permanent medical record and are available for your continuing care. Thank you for allowing us to help in meeting your health care needs. Sincerely, Dr. Valdovinos Interpreting Radiologist [facility] (Normal over 40) Normal [facility] SCREENING W TOMOon 01-31 TAMIKO SCREENING W RJ * * *Final Report* * * DATE OF EXAM: Feb 01 2024 1:20PM [facility] 0582 - [facility] SCREENING W RJ / PROCEDURE REASON: Encounter for screening mammogram for malignant neoplasm of breast * * * * Physician Interpretation * * * * RESULT: #[id number] - [facility] SCREENING W RJ BILATERAL DIGITAL SCREENING [...] 08/13/2020 mammogram - [facility]. The breasts are heterogeneously dense, which may obscure small masses. Bilateral breast implants are stable. No significant masses, calcifications, or other findings are seen in either breast. There has been no significant interval change. IMPRESSION: NEGATIVE There is no mammographic evidence of malignancy. A 1 year screening mammogram is recommended. Arin Valdovinos M.D., jr/jacinda:02/05/2024 06:25:39 Chief Steward/Stewardess(s): [facility] letter sent: Normal over 40 Mammogram [...] Health, Family Medicine, and Medical/Surgical Oncology, the [facility] has carefully reviewed the data and [...] their providers when to stop screening mammograms. Neurology Physician Assistant: Jacinda Transcribe Date/Time: Feb 01 2024 12:55P Dictated by: ARIN VALDOVINOS MD This examination was interpreted and the report reviewed and electronically signed by: ARIN VALDOVINOS MD on Feb 05 2024 6:25AM EST [id number] Normal [facility] 01-21-2024 CNPN Telephone (RDXWS) DO OLSON ([id number]) 1980 F Date Time Provider Department 01/21/24 ROBYN WARNER RDXWS During your visit today, we recorded the following information about you: Veronica Duff, Mammo Tech 01/21/2024 7:55 AM Signed Could we have a mammorgram order? Pt has appt with us 01/31, Thanks a Liliam Hoffman RN 01/21/2024 9:18 AM Signed Please file new Mamm with RJ order. Unable to link the order placed on 11/23/23. Liliam Wong RN Allergies As of Date: 01/21/2024 (No Known Allergies) Date Reviewed: 12/26/2023 Reviewed by: Robyn Warner, REJI.HEAD SHIPPER - Fully Assessed Reason for Visit: Orders [681] Primary Visit Diagnosis:Encounter for screening mammogram for malignant neoplasm of breast [Z12.31] Order(s):TAMIKO SCREENING W RJ [[id number]] Order #: [id number] FUTURE Prescriptions as of 01/21/2024 - topiramate [...] Status:Closed by LILIAM WONG on 01/21/24 Normal [facility] Basophil percentageOrdered B y: Jesus Manuelflorecita Burris on 09-26-2023 Testosterone [Mass/Vol] 3 ng/dL 4-50 [facility] Free testosterone percentage Ordered By: Jesus Manuel Burris on 09-26-2023 Testosterone Free/Testosterone.tota l [Mass fraction] 1.53 % 0.50-2.80 [facility] No Panel InformationOrdered By: Jesus Manuel uBrris on 09-26-2023 Estradiol (E2) Level 72.9 pg/mL [facility] Comment on above: NORMAL REFERENCE RAN [facility] FEMALE FOLLICULAR 21.4 - 164.8 pg/mL MID-CYCLE [...] ESTRADIOL CONCENTRATION. Follicle Stimulating Hormone 4.8 mIU/mL [facility] Comment on above: NORMAL REFERENCE RAN GES FEMALE FOLLICULAR 2.3 - 12.6 mIU/mL MID-CYCLE PEAK 5.2 - 17.5 mIU/mL LUTEAL 1.7 - 12.9 mIU/mL POST-MENOPAUSAL ON MHT 5.9 - 72.8 mIU/mL NOT ON MHT 12.7 - 132.2 mlU/mL MALE 0.7 - 10.8 mIU/mL Luteinizing Hormone 4.0 mIU/mL [facility] Comment on above: NORMAL REFERENCE RAN GES FEMALE FOLLICULAR 1.9 - 26.2 mIU/mL MID-CYCLE PEAK 22.8 - 76.1 mIU/mL LUTEAL 0.6 - 16.6 mIU/mL POST-MENOPAUSAL ON MHT 1.1 - 52.4 mIU/mL NOT ON MHT 8.6 - 61.8 mIU/mL MALE 1.2 - 10.6 mIU/mL Serum or plasma progesterone measurement (mass/volume)Ordered By: Jesus Manuel Burris on 09-26-2023 Progesterone [Mass/Vol] 8.61 ng/mL See Comment [facility] Comment on above: Progesterone Referen ce [...] hormone binding globulin [Moles/Vol] 93.1 nmol/L 24.6-122.0 [facility] Comment on above: Performed at: [facility] [employer] [facility] [address] [id number] Director: Jordan Duncan PhD, Phone: [phone] at: [facility] Lab[address] [id number] Director: Daisha Fatima MD, Phone: [phone] Serum or plasma testosterone free measurement (mass/volume)Ordered By: Jesus Manuel Burris on 09-26-2023 Testosterone Free [Mass/Vol] 0.05 ng/dL 0.10-0.85 [facility] Whole blood hemoglobin A1c/t otal hemoglobin ratio (mass fraction)Ordered By: Jesus Manuel Burris on 09-26-2023 HbA1c (Bld) [Mass fraction] 5.0 % 3.8-5.6 [facility] Comment on above: Normal < 5.7 % Predi abetic 5.7 - 6.4 % Diabetic >or= 6.5 % Please note range changes. Anaerobic cultureOrdered By: Brenton Gifford on 03-19-2023 Bacteria identified Anaer cx Nom (Unsp spec) No growth in 5 days. [facility] Bacteria identified Cx Nom ( Wound)Ordered By: Brenton Gifford on 03-19-2023 Wound Culture Streptococcus parasanguinis [facility] Gram stain for investigation of transfusion reactionOrdered By: Brenton Gifford on 03-19-2023 Microscopic observation Gram stain Nom (Unsp spec) [facility] Absolute lymphocyte countOrd ered By: Kartik Padgett on 02-12-2023 Lymphocytes Auto (Unsp spec) [#/Vol] 1.93 10*3/uL 0.83-4.51 [facility] Basophil percentageOrdered B y: Kartik Padgett on 02-12-2023 Basophils/100 WBC (Bld) 0.9 % 0-1 [facility] Bilirubin [Mass/Vol] 0.40 mg/dL 0.20-1.00 [facility] Comment on above: For patients on eltr ombopag therapy, use of Dimension [place] TBIL is not recommended. Chloride [Moles/Vol] 109 mmol/L 98-107 [facility] Cholesterol [Mass/Vol] 191 mg/dL <200 [facility] Comment on above: <200 mg/dL Desirable 200-240 mg/dL Borderline >240 mg/dL High Risk Eosinophils/100 WBC (Bld) 2.4 % 0-5 [facility] Glucose [Mass/Vol] 83 mg/dL 74-106 [facility] Neutrophils (Bld) [#/Vol] 3.2 10*3/uL 2.0-7.7 [facility] Neutrophils/100 WBC (Bld) 55.0 % 47-70 [facility] Potassium [Moles/Vol] 3.7 mmol/L 3.5-5.1 [facility] Protein [Mass/Vol] 7.4 g/dL 6.4-8.2 [facility] Sodium [Moles/Vol] 140 mmol/L 136-145 [facility] Triglyceride [Mass/Vol] 62 mg/dL <199 [facility] Comment on above: The drugs N-Acetylcy steine and Metamizole may falsely depress this assay.Serum Triglycerides Reference Interval Normal <150 mg/dL Borderline high 150 - 199 mg/dL High 200 - 499 mg/dL Very High > or = 500 mg/dL WBC (Bld) [#/Vol] 5.8 10*3/uL 4.4-11.0 [facility] Blood erythrocytes count (nu mber/volume)Ordered By: Kartik Padgett on 02-12-2023 RBC (Bld) [#/Vol] 4.44 10*6/uL 4.2-5.4 [facility] Blood hemoglobin measurement (mass/volume)Ordered By: Kartik Padgett on 02-12-2023 Hemoglobin (Bld) [Mass/Vol] 13.2 g/dL 12.0-15.0 [facility] Blood lymphocytes/100 leukoc ytesOrdered By: Kartik Padgett on 02-12-2023 Lymphocytes/100 WBC (Bld) 33.5 % 19-41 [facility] Blood monocytes/100 leukocyt esOrdered By: Kartik Padgett on 02-12-2023 Monocytes/100 WBC (Bld) 8.0 % 0-10 [facility] Blood platelet mean volumeOr dered By: Kartik Padgett on 02-12-2023 Platelet mean volume (Bld) [Entitic vol] 9.1 fL 6.2-12.0 [facility] Determination of erythrocyte mean corpuscular volume (MCV)Ordered By: Kartik Padgett on 02-12-2023 MCV (RBC) [Entitic vol] 89.9 fL 81-99 [facility] Hematocrit Auto (Bld) [Volum e fraction]Ordered By: Kartik Padgett on 02-12-2023 Hematocrit (Bld) [Volume fraction] 39.9 % 37-47 [facility] Laboratory - Chemistry and C hemistry - challengeOrdered By: Kartik Padgett on 02-12-2023 ALP [Catalytic activity/Vol] 69 U/L 45-117 [facility] ALT [Catalytic activity/Vol] 19 U/L 13-56 [facility] CO2 [Moles/Vol] 30.0 mmol/L 21.0-32.0 [facility] Cobalamin (Vitamin B12) [Mass/Vol] 662 pg/mL 211-911 [facility] Globulin (S) [Mass/Vol] 3.3 g/dL 2.2-4.2 [facility] Urea nitrogen/Creatinine [Mass ratio] 18.9 mg/mg 10-20 [facility] Laboratory - Hematology and Cell countsOrdered By: Kartik Padgett on 02-12-2023 Erythrocyte distribution width (RBC) [Entitic vol] 39.4 fL 35.1-43.9 [facility] Erythrocyte distribution width (RBC) [Ratio] 12.0 % 11.6-14.6 [facility] Immature granulocytes/100 WBC (Bld) 0.200 % 0.0-0.9 [facility] Comment on above: IG% - Immature Granu locytes (promyelocytes, myelocytes and metamyelocytes) > 1% indicates that a LEFT SHIFT is Present. MCH (RBC) [Entitic mass] 29.7 pg 27.0-32.0 [facility] Nucleated RBC/100 WBC (Bld) [Ratio] 0 % 0-5 [facility] MCHC Auto (RBC) [Mass/Vol]Or dered By: Kartik Padgett on 02-12-2023 MCHC (RBC) [Mass/Vol] 33.1 g/dL 32-36 [facility] No Panel InformationOrdered By: Kartik Padgett on 02-12-2023 Estimated GFR (MDRD) Amer 102 mL/min >60 [facility] Comment on above: GFR Calc Estimated GFR (MDRD) Non-Af Amer 84 mL/min >60 [facility] Comment on above: Non- GFR Calc Thyroid Stimulating Hormone (TSH) 0.88 uIU/mL 0.358-3.74 [facility] Vitamin D 25-Hydroxy 37.1 ng/mL [facility] Comment on above: Vitamin D 25(OH) Sta tus Range Deficiency <20 ng/mL (50nmol/L) Insufficiency 20 - 30 ng/mL (50 - 75 nmol/L) Sufficiency 30 - 100 ng/mL (75 - 250 nmol/L) Toxicity >100 ng/mL (>250 nmol/L) Platelets bldOrdered By: Riana Padgett on 02-12-2023 Platelets (Bld) [#/Vol] 317 10*3/uL 150-450 [facility] Serum or plasma albumin tyrell urement (mass/volume)Ordered By: Kartik Padgett on 02-12-2023 Albumin [Mass/Vol] 4.1 g/dL 3.2-5.0 [facility] Serum or plasma albumin/glob ulin mass ratioOrdered By: Kartik Padgett on 02-12-2023 Albumin/Globulin [Mass ratio] 1.2 {ratio} 0.9-2.4 [facility] Serum or plasma calcium tyrell urement (mass/volume)Ordered By: Kartik Padgett on 02-12-2023 Calcium [Mass/Vol] 8.8 mg/dL 8.5-10.1 [facility] Serum or plasma cholesterol in HDL measurement (mass/volume)Ordered By: Kartik Padgett on 02-12-2023 Cholesterol in HDL [Mass/Vol] 64 mg/dL >40 [facility] Comment on above: The drugs N-Acetylcy steine and Metamizole may falsely depress this assay. Reference Range HDL <40 mg/dL Low HDL Cholesterol HDL >or= 60 mg/dL High HDL Cholesterol Serum or plasma cholesterol in VLDL measurement (mass/volume)Ordered By: Kartik Padgett on 02-12-2023 Cholesterol in VLDL [Mass/Vol] 12 mg/dL 5-40 [facility] Serum or plasma creatinine m easurement (mass/volume)Ordered By: Kartik Padgett on 02-12-2023 Creatinine [Mass/Vol] 0.79 mg/dL 0.55-1.02 [facility] Comment on above: The validity of the calculated GFR & GFRAA in patients over 70 years has not been determined. Clinical correlation is essential. Serum or plasma low density lipoprotein (LDL) cholesterol measurement (mass/volume)Ordered By: Kartik Padgett on 02-12-2023 Cholesterol in LDL [Mass/Vol] 115 mg/dL 0-130 [facility] Serum or plasma urea nitroge n measurement (mass/volume)Ordered By: Kartik Padgett on 02-12-2023 Urea nitrogen [Mass/Vol] 15 mg/dL 7-18 [facility] Thin prep Papanicolaou smear with manual screeningOrdered By: Kartik Padgett on 02-12-2023 Thin prep Papanicolaou smear with manual screening 11 U/L 15-37 [facility] Thin prep Papanicolaou smear with manual screening 1 5-15 [facility] Absolute lymphocyte counton 11-29-2021 Lymphocytes Auto (Unsp spec) [#/Vol] 1.85 10*3/uL 0.83-4.51 [facility] Work Phone: Basophil percentageon 2021 Basophils/100 WBC (Bld) 1.1 % 0-1 [facility] Work Phone: Bilirubin [Mass/Vol] 0.50 mg/dL 0.20-1.00 [facility] Work Phone: Comment on above: For patients on eltr ombopag therapy, use of Dimension [place] TBIL is not recommended. Chloride [Moles/Vol] 107 mmol/L 98-107 [facility] Work Phone: Cholesterol [Mass/Vol] 181 mg/dL <200 [facility] Work Phone: Comment on above: <200 mg/dL Desirable 200-240 mg/dL Borderline >240 mg/dL High Risk Eosinophils/100 WBC (Bld) 2.5 % 0-5 [facility] Work Phone: Glucose [Mass/Vol] 97 mg/dL 74-106 [facility] Work Phone: Neutrophils (Bld) [#/Vol] 3.2 10*3/uL 2.0-7.7 [facility] Work Phone: Neutrophils/100 WBC (Bld) 56.0 % 47-70 [facility] Work Phone: Potassium [Moles/Vol] 4.2 mmol/L 3.5-5.1 [facility] Work Phone: Protein [Mass/Vol] 7.0 g/dL 6.4-8.2 [facility] Work Phone: Sodium [Moles/Vol] 139 mmol/L 136-145 [facility] Work Phone: Triglyceride [Mass/Vol] 79 mg/dL <199 [facility] Work Phone: Comment on above: The drugs N-Acetylcy steine and Metamizole may falsely depress this assay.Serum Triglycerides Reference Interval Normal <150 mg/dL Borderline high 150 - 199 mg/dL High 200 - 499 mg/dL Very High > or = 500 mg/dL WBC (Bld) [#/Vol] 5.7 10*3/uL 4.4-11.0 [facility] Work Phone: Blood erythrocytes count (nu mber/volume)on 11-29-2021 RBC (Bld) [#/Vol] 4.57 10*6/uL 4.2-5.4 [facility] Work Phone: Blood hemoglobin measurement (mass/volume)on 11-29-2021 Hemoglobin (Bld) [Mass/Vol] 13.4 g/dL 12.0-15.0 [facility] Work Phone: Blood lymphocytes/100 leukoc yteson 11-29-2021 Lymphocytes/100 WBC (Bld) 32.6 % 19-41 [facility] Work Phone: Blood monocytes/100 leukocyt eson 11-29-2021 Monocytes/100 WBC (Bld) 7.4 % 0-10 [facility] Work Phone: Blood platelet mean volumeon 11-29-2021 Platelet mean volume (Bld) [Entitic vol] 10.3 fL 6.2-12.0 [facility] Work Phone: Determination of erythrocyte mean corpuscular volume (MCV)on 11-29-2021 MCV (RBC) [Entitic vol] 91.5 fL 81-99 [facility] Work Phone: Hematocrit Auto (Bld) [Volum e fraction]on 11-29-2021 Hematocrit (Bld) [Volume fraction] 41.8 % 37-47 [facility] Work Phone: Laboratory - Chemistry and C hemistry - challengeon 11-29-2021 ALP [Catalytic activity/Vol] 66 U/L 45-117 [facility] Work Phone: ALT [Catalytic activity/Vol] 26 U/L 13-56 [facility] Work Phone: CO2 [Moles/Vol] 28.0 mmol/L 21.0-32.0 [facility] Work Phone: Globulin (S) [Mass/Vol] 3.2 g/dL 2.2-4.2 [facility] Work Phone: Urea nitrogen/Creatinine [Mass ratio] 14.8 mg/mg 10-20 [facility] Work Phone: Laboratory - Hematology and Cell countson 11-29-2021 Erythrocyte distribution width (RBC) [Entitic vol] 42.3 fL 35.1-43.9 [facility] Work Phone: Erythrocyte distribution width (RBC) [Ratio] 12.8 % 11.6-14.6 [facility] Work Phone: Immature granulocytes/100 WBC (Bld) 0.400 % 0.0-0.9 [facility] Work Phone: Comment on above: IG% - Immature Granu locytes (promyelocytes, myelocytes and metamyelocytes) > 1% indicates that a LEFT SHIFT is Present. MCH (RBC) [Entitic mass] 29.3 pg 27.0-32.0 [facility] Work Phone: Nucleated RBC/100 WBC (Bld) [Ratio] 0 % 0-5 [facility] Work Phone: MCHC Auto (RBC) [Mass/Vol]on 11-29-2021 MCHC (RBC) [Mass/Vol] 32.1 g/dL 32-36 [facility] Work Phone: No Panel Informationon 11-29 Estimated GFR (MDRD) Amer 100 mL/min >60 [facility] Work Phone: Comment on above: GFR Calc Estimated GFR (MDRD) Non-Af Amer 83 mL/min >60 [facility] Work Phone: Comment on above: Non- GFR Calc Platelets bldon 11-29-2021 Platelets (Bld) [#/Vol] 275 10*3/uL 150-450 [facility] Work Phone: Serum or plasma albumin tyrell urement (mass/volume)on 11-29-2021 Albumin [Mass/Vol] 3.8 g/dL 3.2-5.0 [facility] Work Phone: Serum or plasma albumin/glob ulin mass ratioon 11-29-2021 Albumin/Globulin [Mass ratio] 1.2 {ratio} 0.9-2.4 [facility] Work Phone: Serum or plasma calcium tyrell urement (mass/volume)on 11-29-2021 Calcium [Mass/Vol] 8.8 mg/dL 8.5-10.1 [facility] Work Phone: Serum or plasma cholesterol in HDL measurement (mass/volume)on 11-29-2021 Cholesterol in HDL [Mass/Vol] 71 mg/dL >40 [facility] Work Phone: Comment on above: The drugs N-Acetylcy steine and Metamizole may falsely depress this assay. Reference Range HDL <40 mg/dL Low HDL Cholesterol HDL >or= 60 mg/dL High HDL Cholesterol Serum or plasma cholesterol in VLDL measurement (mass/volume)on 11-29-2021 Cholesterol in VLDL [Mass/Vol] 16 mg/dL 5-40 [facility] Work Phone: Serum or plasma creatinine m easurement (mass/volume)on 11-29-2021 Creatinine [Mass/Vol] 0.81 mg/dL 0.55-1.02 [facility] Work Phone: Comment on above: The validity of the calculated GFR & GFRAA in patients over 70 years has not been determined. Clinical correlation is essential. Serum or plasma low density lipoprotein (LDL) cholesterol measurement (mass/volume)on 11-29-2021 Cholesterol in LDL [Mass/Vol] 94 mg/dL 0-130 [facility] Work Phone: Serum or plasma urea nitroge n measurement (mass/volume)on 11-29-2021 Urea nitrogen [Mass/Vol] 12 mg/dL 7-18 [facility] Work Phone: Thin prep Papanicolaou smear with manual screeningon 11-29-2021 Thin prep Papanicolaou smear with manual screening 16 U/L 15-37 [facility] Work Phone: Thin prep Papanicolaou smear with manual screening 4 5-15 [facility] Work Phone: Whole blood hemoglobin A1c/t otal hemoglobin ratio (mass fraction)on 11-29-2021 HbA1c (Bld) [Mass fraction] 5.4 % 3.8-5.6 [facility] Work Phone: Comment on above: Normal < 5.7 % Predi abetic 5.7 - 6.4 % Diabetic >or= 6.5 % Please note range changes. RUBEOon 02-23-2021 Rubeola IgG Ab Negative Normal [facility] ([place]) Comment on above: Result Comment: INTE RPRETATION OF RUBEOLA (MEASLES) IGG BY EIA: Negative Nonreactive (Negative) for anti-Rubeola IgG. Presumed non-immune to measles virus. Positive Reactive (Positive) for anti-Rubeola IgG. Presumed immune to measles virus. Equivocal Repeat testing if still indicated. Performed By: #### H BSAB, RUBIS, VARIS, RUBEO #### [address] [address] VARISon 02-22-[address] Positive Normal [facility] ([place]) Comment on above: Result Comment: This immune [...] #### H BSAB, RUBIS, VARIS, RUBEO #### [address] [address] RUBISon 02-19-[address] Positive Normal Positive [facility] ([place]) Comment on above: Result Comment: This immune status assay detects IgM and/or IgG antibody to Rubella. Interpret results in conjunction with clinical history. POS: Antibody detected; exposure at undetermined recent or distant time. If clinically indicated, order Rubella IGM to rule out recent infection. NEG: No antibody detected. Performed By: #### H DWAYNE FLOYD VARIS, RUBEO #### [address] [address] HBSABon 02-18-2021 Hep B Surf Ab 12.4 mIU/mL Normal >=10.0 [facility] ([place]) Comment on above: Result Comment: 0 to [...] #### H DWAYNE FLOYD VARIS, RUBEO #### [address] [address] SARS-COV-2 ANTIBODY, IGGon 0 01-06-2021 SARS-CoV-2 (COVID-19) IgG IA.rapid Ql (S/P/Bld) Negative Normal Negative [facility] Comment on above: Result Comment: No S ARS-CoV-2 IgG antibodies detected. In infected individuals negative results may occur before IgG seroconversion, or in immunosuppressed patients. Negative results should not be used to exclude active or recent COVID-19. This test was performed under the FDA's Emergency Use Authorization (EUA). Testing was performed using the [employer] CLIA methodology. Fact sheets for this EUA can be found at the following links: For Healthcare Providers: https://www.fda.gov/media/581296/download For Patients: https://www.fda.gov/media/298064/download Performed By: #### 3 2001 #### [facility] [address] [place] [address] Eddi Griffin M.D. [id number] MM BREAST SPECIMENon 021 MM BREAST SPECIMEN [...] BIRADS: Code ZW - Awaiting further pathology. [employer] Workstation ID: [id number] Dictated by: TENA GAN on SunOctober 05, 2020 2:04:26 PM EDT Transcribed by: ANSELMO KIM on SunOctober 05, 2020 2:10:23 PM EDT Finalized by: TENA GAN on SunOctober 05, 2020 2:28:33 PM EDT Normal [facility] COVID-19, MOLECULARon 2020 SARS-CoV-2 (COVID-19) RNA GIOVANNY+probe Ql (Unsp spec) Not detected Normal Not Detected [facility] Comment on above: Order Comment: : [...] at the following links: For Healthcare Providers: https://www.fda.gov/media/645014/download For Patients: https://www.fda.gov/media/864388/download Performed By: #### L [id number] #### [facility] [address] [place] [address] Eddi Griffin M.D. [id number] MM FOLLOW UP POST CLIP PLACE [facility] 08-27-2020 MM FOLLOW UP POST CLIP PLACEMENT [...] SunAug 27, 2020 2:10:[address] [facility] 08-27-2020 1. Status post right breast biopsy with pathology pending. Workstation ID: [id number] [facility] EXAMINATION: US REUBEN ST RIGHT LIMITED; [...] to obscuration by implant. No immediate complication. [facility], Rad In Fu ji Speechq - 08/27/2020 [...] biopsy with pathology pending. Workstation ID: [id number] [facility] US BREAST BIOPSY RIGHTon US BREAST [...] SunAug 27, 2020 2:10:22 PM EDT Normal [facility] Comment on above: Order Comment: Injur [...] Addended: SunAug 30, 2020 1:20 PM by aCrolin Ramirez MD ADDENDUM: Histology from the biopsy [...] SunAug 27, 2020 2:10:22 PM EDT Normal [facility] COMPARISON IMPORTon 08-25 This order has been auto-finalized and does not contain a result. [facility] US COMPARISON IMPORTon 08-25 This order has been auto-finalized and does not contain a result. [facility] MR BREAST BILATERAL WITH AND WITHOUT [...] KNOWN BIOPSY PROVEN MALIGNANCY. Workstation ID: [id number] [facility] EXAMINATION: MR BREAST BILATERAL WITH AND [...] Dotarem intravenously administered in a single dosage. [employer] CAD utilized in the interpretation of this [...] along the internal mammary lymph node chains. [facility] Interface, Rad In Fu ji Speechq [...] Dotarem intravenously administered in a single dosage. [employer] CAD utilized in the interpretation of this [...] KNOWN BIOPSY PROVEN MALIGNANCY. Workstation ID: [id number] [facility] MR BREAST BILATERAL WITH AND WITHOUT [...] SunAug 24, 2020 2:00:29 PM EDT Abnormal [facility] Comment on above: Order Comment: Injur y/Trauma or Illness?:Illness/Other How long have you had these symptoms (acute/chronic)?:Acute Reason for exam?:Abnormal Mammo @ [facility] x 1 week ago / was a routine scheduled exam not having any problems Type of Exam?:Initial Additional signs and symptoms?:na DIGITAL DIAG MAMM BILAT WITH TOMOon 08-19-2020 DIGITAL DIAG MAMM BILAT WITH RJ Patient Name: DO OLSON STUDY: Digital diagnostic mammogram bilateral with rj; 08/19/2020 9:05 am; 08/19/2020 8:55 am ACCESSION NUMBER(S): [id number]; [id number] ORDERING CLINICIAN: ANA MARIA BAKER INDICATION: Abnormal [...] Follow-up. Electronically signed by: ALEX VARGAS MD [facility] BREAST ULTRASOUNDon 08-19-2020 LIMITED BREAST ULTRASOUND Patient Name: DO OLSON STUDY: Digital diagnostic mammogram bilateral with rj; 08/19/2020 9:05 am; 08/19/2020 8:55 am ACCESSION NUMBER(S): [id number]; [id number] ORDERING CLINICIAN: ANA MARIA BAKER INDICATION: Abnormal [...] Follow-up. Electronically signed by: ALEX VARGAS MD [facility] XR SHOULDER LEFT 2+ VIEWS [...] on SunJul 20, 2020 6:48:38 PM EST [facility] Comment on above: Order Comment: Injur y/Trauma or Illness?:Illness/Other How long have you had these symptoms (acute/chronic)?:Acute Reason for exam?:no injury, left shoulder pain and difficulty abducting left arm. limited range of motion History of cancer?:u Surgeries, chemotherapy, or radiation?:u Type of Exam?:Initial Additional signs and symptoms?:no COVID-19, MOLECULARon 2020 SARS-CoV-2 (COVID-19) RNA GIOVANNY+probe Ql (Unsp spec) Not detected Normal Not Detected [facility] Comment on above: Order Comment: : [...] at the following links: For Healthcare Providers: https://www.fda.gov/media/830376/download For Patients: https://www.fda.gov/media/684176/download Performed By: #### L [id number] #### [facility] [address] [place] [address] Eddi Griffin M.D. [id number] COVID-19, MOLECULARon 2019 SARS-CoV-2 (COVID-19) RNA GIOVANNY+probe Ql (Unsp spec) Not detected Normal Not Detected [facility] Comment on above: Result Comment: This [...] at the following links: For Healthcare Providers: https://www.fda.gov/media/923361/download For Patients: https://www.fda.gov/media/389848/download Performed By: #### L [id number] #### [facility] [address] Eddi Griffin M.D. [id number] Free T4on 10-05-2017 T4 free mass conc 0.93 ng/dL Normal 0.58-1.64 [facility] Comment on above: Performed By: #### [id number] #### [facility] [employer] [address] [place] [address] TSHon 10-05-2017 Thyrotropin Qn 1.80 mIU/m Normal 0.30-5.60 [facility] Comment on above: Performed By: #### [id number] #### [facility] [employer] [facility] [place] [address] Vital Signs Date Time Vital Sign Value Performing Clinician Facility 12-30-2024 08:10-0400 Body temperature 97.3 [degF] Kartik Hdezder [facility] Work Phone: 1(468)021-570699 [place] [address] 12-30-2024 08:10-0400 Diastolic blood pressure 78 mm[Hg] Kartik Padgett [facility] Work Phone: 5(717)290-011299 [place] [address] 12-30-2024 08:10-0400 Heart rate 91 /min Kartik Padgett [facility] Work Phone: 9(681)842-113499 [place] [address] 12-30-2024 08:10-0400 Respiratory rate 16 /min Kartik Padgett [facility] Work Phone: 1(368)802-332499 [place] [address] 12-30-2024 08:10-0400 SaO2% (BldA) [Mass fraction] 95 % Kartik Padgett [facility] Work Phone: 2(996)699-862199 [place] [address] 12-30-2024 08:10-0400 Systolic blood pressure 118 mm[Hg] Kartik Padgett [facility] Work Phone: 8(245)047-377699 [place] [address] 12-30-2024 06:27-0400 Body height 170.18 cm Kartik Padgett [facility] Work Phone: 6(567)821-925599 [place] [address] 12-30-2024 06:27-0400 Body mass index (BMI) [Ratio] 27.1 kg/m2 Kartik Padgett [facility] Work Phone: [facility] 12-30-2024 06:27-0400 Body weight 78.5 kg Kartik Padgett [facility] Work Phone: [facility] 12-19-2024 07:03-0400 Body mass index (BMI) [Ratio] 25.37 kg/m2 Robyn Warner APRN.[employer] Work Phone: [facility] 12-19-2024 07:03-0400 Body weight 73.48 kg Robyn Warner APRN.[employer] Work Phone: [facility] 12-19-2024 07:03-0400 Diastolic blood pressure 76 mm[Hg] Robyn Warner APRN.[employer] Work Phone: [facility] 12-19-2024 07:03-0400 Heart rate 92 /min Robyn Warner APRN.[employer] Work Phone: [facility] 12-19-2024 07:03-0400 SaO2% (BldA) [Mass fraction] 98 % Robyn Warner APRN.[employer] Work Phone: [facility] 12-19-2024 07:03-0400 Systolic blood pressure 108 mm[Hg] Robyn Warner APRN.[employer] Work Phone: [facility] 09-25-2024 15:24-0400 Body mass index (BMI) [Ratio] 25.37 kg/m2 Robyn Warner APRN.[employer] Work Phone: [facility] 09-25-2024 15:24-0400 Body weight 73.48 kg Robyn Warner APRN.[employer] Work Phone: [facility] 09-25-2024 15:24-0400 Diastolic blood pressure 76 mm[Hg] Robyn Warner APRN.[employer] Work Phone: [facility] 09-25-2024 15:24-0400 Heart rate 65 /min Robyn Warner APRN.[employer] Work Phone: [facility] 09-25-2024 15:24-0400 SaO2% (BldA) [Mass fraction] 100 % Robyn Warner APRN.[employer] Work Phone: [facility] 09-25-2024 15:24-0400 Systolic blood pressure 116 mm[Hg] Robyn Warner APRN.[employer] Work Phone: [facility] 08-07-2024 15:20-0400 Body height 170.18 cm Kartik Padgett [facility] Work Phone: [facility] 07-03-2024 14:37-0500 Body mass index (BMI) [Ratio] 24.75 kg/m2 Robyn Warner APRN.[employer] Work Phone: [facility] 07-03-2024 14:37-0500 Body weight 71.67 kg Robyn Warner APRN.[employer] Work Phone: [facility] 07-03-2024 14:37-0500 Diastolic blood pressure 77 mm[Hg] Robyn Warner APRN.[employer] Work Phone: [facility] 07-03-2024 14:37-0500 Heart rate 95 /min Robyn Warner APRN.[employer] Work Phone: [facility] 07-03-2024 14:37-0500 SaO2% (BldA) [Mass fraction] 100 % Robyn Warner APRN.[employer] Work Phone: [facility] 07-03-2024 14:37-0500 Systolic blood pressure 113 mm[Hg] Robyn Warnre APRN.[employer] Work Phone: [facility] 06-10-2024 08:15-0500 Body temperature 97.2 [degF] Kartik Padgett [facility] Work Phone: [facility] 06-10-2024 08:15-0500 Diastolic blood pressure 50 mm[Hg] Kartik Padgett [facility] Work Phone: [facility] 06-10-2024 08:15-0500 Heart rate 73 /min Kartik Padgett [facility] Work Phone: [facility] 06-10-2024 08:15-0500 Respiratory rate 16 /min Kartik Padgett [facility] Work Phone: [facility] 06-10-2024 08:15-0500 SaO2% (BldA) [Mass fraction] 100 % Kartik Padgett [facility] Work Phone: [facility] 06-10-2024 08:15-0500 Systolic blood pressure 101 mm[Hg] Kartik Padgett [facility] Work Phone: [facility] 06-10-2024 06:13-0500 Body mass index (BMI) [Ratio] 25 kg/m2 Kartik Padgett [facility] Work Phone: [facility] 06-10-2024 06:13-0500 Body weight 72.3 kg Kartik Padgett [facility] Work Phone: [facility] 04-09-2024 11:47-0500 Body mass index (BMI) [Ratio] 24.43 kg/m2 Robyn Warner APRN.[employer] Work Phone: [facility] 04-09-2024 11:47-0500 Body weight 70.76 kg Robyn Warner APRN.[employer] Work Phone: [facility] 04-09-2024 11:47-0500 Diastolic blood pressure 76 mm[Hg] Robyn Warner APRN.[employer] Work Phone: [facility] 04-09-2024 11:47-0500 Heart rate 85 /min Robyn Warner APRN.[employer] Work Phone: [facility] 04-09-2024 11:47-0500 SaO2% (BldA) [Mass fraction] 97 % Robyn Warner APRN.[employer] Work Phone: [facility] 04-09-2024 11:47-0500 Systolic blood pressure 122 mm[Hg] Robyn Warner APRN.[employer] Work Phone: [facility] 02-13-2024 07:16-0400 Body mass index (BMI) [Ratio] 25.53 kg/m2 Robyn Warner [employer]ILY [employer]IATOR.[employer] Work Phone: [facility] 02-13-2024 07:16-0400 Body weight 73.94 kg Robyn Warner APRN.[employer] Work Phone: [facility] 02-13-2024 07:16-0400 Diastolic blood pressure 71 mm[Hg] Robyn Warner APRN.[employer] Work Phone: [facility] 02-13-2024 07:16-0400 Heart rate 92 /min Robyn Warner APRN.[employer] Work Phone: [facility] 02-13-2024 07:16-0400 Systolic blood pressure 110 mm[Hg] Robyn Warner APRN.[employer] Work Phone: [facility] 12-26-2023 06:58-0400 Body height 170.2 cm Robyn Warner APRN.[employer] Work Phone: [facility] 12-26-2023 06:58-0400 Body mass index (BMI) [Ratio] 25.18 kg/m2 Robyn Warner APRN.[employer] Work Phone: [facility] 12-26-2023 06:58-0400 Body weight 72.94 kg Robyn Warner APRN.[employer] Work Phone: [facility] 12-26-2023 06:58-0400 Diastolic blood pressure 62 mm[Hg] Robyn Warner APRN.[employer] Work Phone: [facility] 12-26-2023 06:58-0400 Heart rate 73 /min Robyn Warner APRN.[employer] Work Phone: [facility] 12-26-2023 06:58-0400 SaO2% (BldA) [Mass fraction] 99 % Robyn Warner APRN.[employer] Work Phone: [facility] 12-26-2023 06:58-0400 Systolic blood pressure 110 mm[Hg] Robyn Warner APRN.[employer] Work Phone: [facility] 11-23-2023 07:02-0400 Body height 170.2 cm Robyn Warner APRN.[employer] Work Phone: [facility] 11-23-2023 07:02-0400 Body mass index (BMI) [Ratio] 25.22 kg/m2 Robyn Warner APRN.[employer] Work Phone: [facility] 11-23-2023 07:02-0400 Body weight 73.03 kg Robyn Warner APRN.[employer] Work Phone: [facility] 11-23-2023 07:02-0400 Diastolic blood pressure 62 mm[Hg] Robyn Warner APRN.[employer] Work Phone: [facility] 11-23-2023 07:02-0400 Systolic blood pressure 112 mm[Hg] Robyn Warner APRN.[employer] Work Phone: [facility] 10-02-2023 11:33-0400 Body mass index (BMI) [Ratio] 25.94 kg/m2 Robyn Warner APRN.[employer] Work Phone: [facility] 10-02-2023 11:33-0400 Body weight 75.12 kg Robyn Warner APRN.[employer] Work Phone: [facility] 10-02-2023 11:33-0400 Diastolic blood pressure 64 mm[Hg] Robyn Warner APRN.[employer] Work Phone: [facility] 10-02-2023 11:33-0400 Systolic blood pressure 100 mm[Hg] Robyn Warner APRN.[facility] Work Phone: [facility] 03-19-2023 11:53-0400 Body mass index (BMI) [Ratio] 28 kg/m2 [facility] Kartik Padgett [facility] Work Phone: [facility] 03-19-2023 11:53-0400 Body temperature 97.2 [degF] [facility] Kartik Padgett [facility] Work Phone: [facility] 03-19-2023 11:53-0400 Body weight 81.3 kg [facility] Kartik Padgett [facility] Work Phone: [facility] 03-19-2023 11:53-0400 Diastolic blood pressure 79 mm[Hg] [facility] Kartik Padgett [facility] Work Phone: 4(854)059-229799 [place] [address] 03-19-2023 11:53-0400 Heart rate 81 /min [facility] Kartik Padgett [facility] Work Phone: 3(318)138-744899 [place] [address] 03-19-2023 11:53-0400 Respiratory rate 16 /min [facility] Kartik Padgett [facility] Work Phone: 0(073)096-600899 [place] [address] 03-19-2023 11:53-0400 SaO2% (BldA) [Mass fraction] 98 % [facility] Kartik Padgett [facility] Work Phone: 6(021)542-244599 [place] [address] 03-19-2023 11:53-0400 Systolic blood pressure 119 mm[Hg] [facility] Kartik Padgett [facility] Work Phone: 4(524)675-544999 [place] [address] 03-18-2023 10:56-0400 Body height 170.18 cm [facility] Kartik Padgett [facility] Work Phone: 5(807)542-108499 [place] [address] 03-18-2023 10:56-0400 Body mass index (BMI) [Ratio] 27.3 kg/m2 [facility] Kartik Padgett [facility] Work Phone: 2(444)283-555899 [place] [address] 03-18-2023 10:56-0400 Body temperature 97 [degF] [facility] Kartik Padgett [facility] Work Phone: 8(842)158-957699 [place] [address] 03-18-2023 10:56-0400 Body weight 79.37 kg [facility] Kartik Padgett [facility] Work Phone: 8(927)263-682499 [place] [address] 03-18-2023 10:56-0400 Diastolic blood pressure 89 mm[Hg] [facility] Kartik Padgett [facility] Work Phone: 1(671)249-046299 [place] [address] 03-18-2023 10:56-0400 Heart rate 94 /min [facility] Kartik Padgett [facility] Work Phone: 4(101)757-574199 [place] [address] 03-18-2023 10:56-0400 Respiratory rate 16 /min [facility] Kartik Padgett [facility] Work Phone: 2(084)291-490299 [place] [address] 03-18-2023 10:56-0400 SaO2% (BldA) [Mass fraction] 99 % [facility] Kartik Padgett [facility] Work Phone: [facility] 03-18-2023 10:56-0400 Systolic blood pressure 131 mm[Hg] [facility] Kartik Padgett [facility] Work Phone: [facility] 10-17-2022 15:33-0400 Body height 170.18 cm gloria [facility] 10-17-2022 15:33-0400 Body mass index (BMI) [Ratio] 29 kg/m2 [facility] 10-17-2022 15:33-0400 Body temperature 98.1 [degF] [facility] 10-17-2022 15:33-0400 Body weight 83.91 kg [facility] 10-17-2022 15:33-0400 Diastolic blood pressure 70 mm[Hg] [facility] 10-17-2022 15:33-0400 Heart rate 90 /min [facility] 10-17-2022 15:33-0400 Respiratory rate 16 /min [facility] 10-17-2022 15:33-0400 SaO2% (BldA) [Mass fraction] 96 % [facility] 10-17-2022 15:33-0400 Systolic blood pressure 90 mm[Hg] [facility] 05-03-2022 07:24-0500 Body weight 92.08 kg Robyn Warner APRN.[employer] Work Phone: [facility] 05-03-2022 07:24-0500 Diastolic blood pressure 72 mm[Hg] Robyn Wanrer APRN.[employer] Work Phone: [facility] 05-03-2022 07:24-0500 Systolic blood pressure 118 mm[Hg] Robyn Warner APRN.[employer] Work Phone: [facility] 04-18-2022 15:36-0500 Body height 170.2 cm Robyn Warner APRN.[employer] Work Phone: [facility] 04-18-2022 15:36-0500 Body weight 91.54 kg Robyn Warner APRN.[employer] Work Phone: [facility] 04-18-2022 15:36-0500 Diastolic blood pressure 70 mm[Hg] Robyn aWrner APRN.[employer] Work Phone: [facility] 04-18-2022 15:36-0500 Systolic blood pressure 128 mm[Hg] Robyn Warner APRN.[employer] Work Phone: [facility] 02-11-2022 17:11-0400 Diastolic blood pressure 73 mm[Hg] No Primary Care Physician [facility] Work Phone: 02-11-2022 17:11-0400 Heart rate 74 /min No Primary Care Physician [facility] Work Phone: 02-11-2022 17:11-0400 Respiratory rate 17 /min No Primary Care Physician [facility] Work Phone: 02-11-2022 17:11-0400 SaO2% (BldA) [Mass fraction] 99 % No Primary Care Physician [facility] Work Phone: 02-11-2022 17:11-0400 Systolic blood pressure 98 mm[Hg] No Primary Care Physician [facility] Work Phone: 02-11-2022 15:12-0400 Body height 170.18 cm No Primary Care Physician [facility] Work Phone: 02-11-2022 15:12-0400 Body mass index (BMI) [Ratio] 29.7 kg/m2 No Primary Care Physician [facility] Work Phone: 02-11-2022 15:12-0400 Body temperature 97.3 [degF] No Primary Care Physician [facility] Work Phone: 02-11-2022 15:12-0400 Body weight 86.18 kg No Primary Care Physician [facility] Work Phone: 12-23-2021 08:07-0400 Body height 170.18 cm No Primary Care Physician [facility] Work Phone: 12-23-2021 08:07-0400 Body mass index (BMI) [Ratio] 30.2 kg/m2 No Primary Care Physician [facility] Work Phone: 12-23-2021 08:07-0400 Body weight 87.54 kg No Primary Care Physician [facility] Work Phone: 12-09-2021 09:29-0400 Body mass index (BMI) [Ratio] 30.2 kg/m2 No Primary Care Physician [facility] Work Phone: 12-09-2021 09:29-0400 Body temperature 96.3 [degF] No Primary Care Physician [facility] Work Phone: 12-09-2021 09:29-0400 Body weight 87.54 kg No Primary Care Physician [facility] Work Phone: 12-09-2021 09:29-0400 Diastolic blood pressure 60 mm[Hg] No Primary Care Physician [facility] Work Phone: 12-09-2021 09:29-0400 Heart rate 103 /min No Primary Care Physician [facility] Work Phone: 12-09-2021 09:29-0400 Respiratory rate 18 /min No Primary Care Physician [facility] Work Phone: 12-09-2021 09:29-0400 SaO2% (BldA) [Mass fraction] 99 % No Primary Care Physician [facility] Work Phone: 12-09-2021 09:29-0400 Systolic blood pressure 114 mm[Hg] No Primary Care Physician [facility] Work Phone: 11-29-2021 08:14-0400 Body height 170.18 cm No Primary Care Physician [facility] Work Phone: 11-29-2021 08:14-0400 Body mass index (BMI) [Ratio] 30.5 kg/m2 No Primary Care Physician [facility] Work Phone: 11-29-2021 08:14-0400 Body temperature 97.6 [degF] No Primary Care Physician [facility] Work Phone: 11-29-2021 08:14-0400 Body weight 88.45 kg No Primary Care Physician [facility] Work Phone: 11-29-2021 08:14-0400 Diastolic blood pressure 78 mm[Hg] No Primary Care Physician [facility] Work Phone: 11-29-2021 08:14-0400 Heart rate 83 /min No Primary Care Physician [facility] Work Phone: 11-29-2021 08:14-0400 Respiratory rate 14 /min No Primary Care Physician [facility] Work Phone: 11-29-2021 08:14-0400 SaO2% (BldA) [Mass fraction] 98 % No Primary Care Physician [facility] Work Phone: 11-29-2021 08:14-0400 Systolic blood pressure 130 mm[Hg] No Primary Care Physician [facility] Work Phone: 11-23-2021 14:46-0400 Body temperature 98 [degF] No Primary Care Physician [facility] Work Phone: 11-23-2021 14:46-0400 Diastolic blood pressure 80 mm[Hg] No Primary Care Physician [facility] Work Phone: 11-23-2021 14:46-0400 Heart rate 102 /min No Primary Care Physician [facility] Work Phone: 11-23-2021 14:46-0400 Respiratory rate 14 /min No Primary Care Physician [facility] Work Phone: 11-23-2021 14:46-0400 SaO2% (BldA) [Mass fraction] 98 % No Primary Care Physician [facility] Work Phone: 11-23-2021 14:46-0400 Systolic blood pressure 136 mm[Hg] No Primary Care Physician [facility] Work Phone: 08-04-2021 14:35-0500 Body mass index (BMI) [Ratio] 31.3 kg/m2 No Primary Care Physician [facility] Work Phone: 08-04-2021 14:35-0500 Body weight 90.71 kg No Primary Care Physician [facility] Work Phone: 08-04-2021 14:35-0500 Diastolic blood pressure 80 mm[Hg] No Primary Care Physician [facility] Work Phone: 08-04-2021 14:35-0500 Systolic blood pressure 108 mm[Hg] No Primary Care Physician [facility] Work Phone: 08-04-2021 13:35-0500 Body height 170.18 cm No Primary Care Physician [facility] Work Phone: 08-04-2021 13:35-0500 Body mass index (BMI) [Ratio] 31.3 kg/m2 No Primary Care Physician [facility] Work Phone: 08-04-2021 13:35-0500 Body weight 90.71 kg No Primary Care Physician [facility] Work Phone: 08-04-2021 13:35-0500 Diastolic blood pressure 80 mm[Hg] No Primary Care Physician [facility] Work Phone: 08-04-2021 13:35-0500 Systolic blood pressure 108 mm[Hg] No Primary Care Physician [facility] Work Phone: 07-28-2021 08:26-0500 Body mass index (BMI) [Ratio] 31.3 kg/m2 No Primary Care Physician [facility] Work Phone: 07-28-2021 08:26-0500 Body weight 90.71 kg No Primary Care Physician [facility] Work Phone: 09-21-2020 07:32-0400 Body height 170.2 cm Ana Maria Baker MD Work Phone: [facility] 09-21-2020 07:32-0400 Body mass index (BMI) [Ratio] 29.44 kg/m2 Ana Maria Baker MD Work Phone: [facility] 09-21-2020 07:32-0400 Body temperature 97.81 [degF] Ana Maria Baker MD Work Phone: [facility] 09-21-2020 07:32-0400 Body weight 85.28 kg Ana Maria Baker MD Work Phone: [facility] 09-21-2020 07:32-0400 Diastolic blood pressure 76 mm[Hg] Ana Maria Baker MD Work Phone: [facility] 09-21-2020 07:32-0400 Heart rate 65 /min Ana Maria Baker MD Work Phone: [facility] 09-21-2020 07:32-0400 Respiratory rate 16 /min Ana Maria Baker MD Work Phone: [facility] 09-21-2020 07:32-0400 SaO2% (BldA) [Mass fraction] 97 % Ana Maria Baker MD Work Phone: [facility] 09-21-2020 07:32-0400 Systolic blood pressure 130 mm[Hg] Ana Maria Baker MD Work Phone: [facility] 08-26-2020 09:07-0400 BMI (Body Mass Index) 29.6 kg/m2 Shahla Oostra [facility] 08-26-2020 09:07-0400 Body weight 85.73 kg Shahla Oostra [facility] 08-26-2020 09:07-0400 Height 170.2 cm Shahla Oostra [facility] 05-06-2020 12:26-0500 BMI (Body Mass Index) 31.61 kg/m2 Ana Maria aBker [facility] 05-06-2020 12:26-0500 Body Temperature 98.29 [degF] Ana Maria Baker [facility] 05-06-2020 12:26-0500 Body weight 91.54 kg Ana Maria Baker [facility] 05-06-2020 12:26-0500 BP Diastolic 84 mm[Hg] Ana Maria Rojasr [facility] 05-06-2020 12:26-0500 BP Systolic 120 mm[Hg] Ana Maria Olivia [facility] 05-06-2020 12:26-0500 Height 170.2 cm Ana Maria Olivia [facility] 05-06-2020 12:26-0500 Pulse (Heart Rate) 95 /min Ana Maria Rojasr [facility] 05-06-2020 12:26-0500 Pulse Oximetry 98 % Ana Maria Rojasr [facility] 05-06-2020 12:26-0500 Respiratory Rate 16 /min Ana Maria Rojasr [facility] 01-11-2018 09:06-0400 BMI (Body Mass Index) 27.88 kg/m2 [facility] 01-11-2018 09:06-0400 Body Temperature 98.01 [degF] [facility] 01-11-2018 09:06-0400 BP Diastolic 70 mm[Hg] [facility] 01-11-2018 09:06-0400 BP Systolic 104 mm[Hg] [facility] 01-11-2018 09:06-0400 Height 170.2 cm [facility] 01-11-2018 09:06-0400 Pulse (Heart Rate) 91 /min [facility] 01-11-2018 09:06-0400 Pulse Oximetry 98 % [facility] 01-11-2018 09:06-0400 Respiratory Rate 16 /min [facility] 01-11-2018 09:06-0400 Weight 80.74 kg [facility] Encounters Encounter Date Encounter Type Care Provider Facility Start: 03-12-2025 End: 03-12-2025 Emergency department patient visit Kartik RIDLEY Facility:[facility] Start: 02-24-2025 End: 02-24-2025 ambulatory Kartik Padgett [facility] Work Phone: -Outpatient [facility] Start: 02-24-2025 End: 02-24-2025 Patient encounter procedure Robyn Warner [facility] -[facility] Work Phone: Start: 02-24-2025 End: 02-24-2025 ambulatory Robyn Warner NP Facility:[facility] Start: 01-28-2025 End: 01-28-2025 ambulatory Robyn Warner APRN.[employer] Work Phone: OB/Gynecology Comment on above: Mammogram Start: 01-14-2025 End: 01-14-2025 Telephone encounter Robyn Warner APRN.[employer] Work Phone: OB/Gynecology Comment on above: Outside Labs Results Start: 12-30-2024 ambulatory Kartik Padgett [facility] Facility :[facility] Start: 12-30-2024 Non-patient / Non-visit Dr. Eulogio stevens DO -[facility] Start: 12-30-2024 End: 12-30-2024 Patient encounter procedure Robyn Warner NP-C -Laboratory Work Phone: Start: 12-30-2024 End: 12-30-2024 ambulatory Kartik Padgett [facility] Work Phone: -Laboratory Start: 12-30-2024 End: 12-30-2024 ambulatory Robyn Warner NP Facility:[facility] Start: 12-23-2024 End: 12-23-2024 Get Medical Advice Robyn Warner APRN.[employer] Work Phone: OB/Gynecology Comment on above: Lab order Start: 12-19-2024 End: 12-19-2024 Patient encounter procedure Robyn Warner APRN.HEAD SHIPPER Work Phone: OB/Gynecology Comment on above: Osteoarthritis of le ft knee, unspecified osteoarthritis type (Primary Dx); Anxiety; History of gestational diabetes; Binge-eating disorder, in full remission, mild; Encounter for long-term (current) use of medications; History of obesity Start: 12-19-2024 End: 12-19-2024 ambulatory KARTIK HDEZDER Facility:[facility] Start: 12-11-2024 End: 12-11-2024 ambulatory [facility] Provider OB/Gynecology Comment on above: 12/19 Start: 12-11-2024 End: 12-11-2024 E-mail encounter from caregiver [facility] Provider OB/Gynecology Start: 10-17-2024 End: 10-17-2024 ambulatory Kartik Padgett [employer] Work Phone: -Physical Therapy Start: 10-17-2024 End: 10-17-[address] Daryl Geiger MD -Physical Therapy Work Phone: Start: 10-07-2024 ambulatory Kartik Padgett [facility] Facility :[facility] Start: 09-26-2024 End: 09-26-[address] Eulogio Mello DO -[facility] Work Phone: Start: 09-26-2024 End: 09-26-2024 ambulatory Kartik Padgett [facility] Facility:[facility] Start: 09-25-2024 End: 09-25-2024 Patient encounter procedure Robyn Warner APRN.HEAD SHIPPER Work Phone: OB/Gynecology Comment on above: Osteoarthritis of le ft knee, unspecified osteoarthritis type (Primary Dx); Anxiety; Stress incontinence; History of gestational diabetes; Binge-eating disorder, in full remission, mild; History of obesity Start: 09-25-2024 End: 09-25-2024 ambulatory ROBYN WARNER Facility:[facility] Start: 08-07-2024 End: 08-07-2024 Patient encounter procedure Brooke HAGERC -[facility] Work Phone: Start: 08-07-2024 End: 08-07-2024 ambulatory Brooke Liu Facility:[facility] Start: 08-07-2024 End: 08-07-2024 ambulatory Kartik Padgett [employer] Work Phone: [facility] Work Phone: Start: 08-07-2024 End: 08-07-2024 Patient encounter procedure Brooke HAGERC -[facility] Work Phone: Start: 08-07-2024 End: 08-07-2024 ambulatory Brooke Liu Facility:[facility] Start: 08-04-2024 End: 08-04-2024 Patient encounter procedure Brooke RAE -[facility] Work Phone: Start: 08-04-2024 End: 08-04-2024 ambulatory Brooke Liu Facility:[facility] Start: 07-03-2024 End: 07-03-2024 Patient encounter procedure Robyn Warner FAMILY LAW MEDIATOR.HEAD SHIPPER Work Phone: OB/Gynecology Comment on above: Osteoarthritis of le ft knee, unspecified osteoarthritis type (Primary Dx); Anxiety; Stress incontinence; History of gestational diabetes; Binge-eating disorder, in full remission, mild; History of obesity Start: 07-03-2024 End: 07-03-2024 ambulatory ROBYN WARNER Facility:[facility] Start: 06-23-2024 ambulatory Kartik [facility] Facility :[facility] Start: 06-10-2024 ambulatory [facility] Facility :[facility] Start: 06-10-2024 Non-patient / Non-visit Dr. Eulogio stevens DO [facility] Start: 06-10-2024 End: 06-10-2024 Admission to same day surgery center Dr. Eulogio Mello DO -[facility] Start: 06-10-2024 End: 06-10-2024 ambulatory Kartik [facility] Facility:[facility] Start: 04-15-2024 End: 04-15-2024 Refill Carolyn Dumas APRN.HEAD SHIPPER Work Phone: OB/Gynecology Comment on above: Refill Request Diflucan Start: 04-09-2024 End: 04-09-2024 ambulatory ROBYN WARNER Facility:[facility] Start: 04-09-2024 End: 04-09-2024 Patient encounter procedure Robyn Warner APRN.HEAD SHIPPER Work Phone: OB/Gynecology Comment on above: Osteoarthritis of le ft knee, unspecified osteoarthritis type (Primary Dx); Anxiety; Stress incontinence; History of gestational diabetes; Binge-eating disorder, in full remission, mild; History of obesity Start: 04-01-2024 End: 04-01-2024 ambulatory Kartik [facility] Facility:[facility] Start: 03-14-2024 End: 03-14-2024 ambulatory [facility] Facility:[facility] Start: 02-13-2024 End: 02-13-2024 ambulatory ROBYN WARNER Facility:[facility] Start: 02-13-2024 End: 02-13-2024 Patient encounter procedure Robyn Warner APRN.HEAD SHIPPER Work Phone: OB/Gynecology Comment on above: Osteoarthritis of le ft knee, unspecified osteoarthritis type (Primary Dx); Anxiety; Stress incontinence; History of gestational diabetes; Binge-eating disorder, in full remission, mild; History of obesity Start: 02-05-2024 End: 02-06-2024 Documentation procedure Mammography Coordinator [facility] Department Start: 02-05-2024 End: 02-06-2024 Letter encounter Mammography Coordinator [facility] Start: 02-01-2024 End: 02-01-2024 ambulatory ROBYN WARNER Facility:[facility] Start: 02-01-2024 End: 02-01-2024 Subsequent hospital visit by physician Screen Mammo [facility] Mammogram Comment on above: Encounter for [...] in adulthood Start: 11-30-2023 ambulatory Robyn CHE RN.CNP Work Phone: OB/Gynecology Comment on above: medications Start: 11-30-2023 E-mail encounter fro m caregiver Robyn Warner APRN.CNP Work Phone: OB/Gynecology Start: 11-23-2023 End: 11-23-2023 Patient encounter procedure Robyn Warner APRN.CNP Work Phone: OB/Gynecology Comment on above: Encounter for gyneco logical examination (general) (routine) without abnormal findings (Primary Dx); Stress incontinence; Encounter for screening mammogram for breast cancer; Heterogeneously dense tissue of both breasts on mammography; History of obesity Start: 11-23-2023 End: 11-23-2023 Patient encounter status Robyn Warner APRN.CNP Work Phone: [facility] Start: 11-14-2023 Get Medical Advice Robyn carreno APRN.HEAD SHIPPER Work Phone: OB/Gynecology Comment on above: Refill Start: 10-02-2023 End: 10-02-2023 Patient encounter procedure Robyn Warner APRN.HEAD SHIPPER Work Phone: OB/Gynecology Comment on above: Vaginal dryness (Bria mariajose Dx); Low libido; Malaise and fatigue Start: 09-26-2023 End: 09-26-2023 ambulatory [facility] Work Phone: Start: 09-26-2023 End: 09-26-2023 Patient encounter procedure [facility]-Laboratory, OP Pavilion Start: 03-19-2023 End: 03-19-2023 ambulatory [facility] Kartik Padgett [facility] Work Phone: [facility] Work Phone: Start: 03-19-2023 End: 03-19-2023 Patient encounter procedure [employer] Kartik Padgett [facility]SC Work Phone: [facility]-Laboratory, Specimen Work Phone: Start: 03-19-2023 End: 03-19-2023 Patient encounter procedure [employer] Kartik Padgett [facility]SC Work Phone: [facility]astic [facility] Work Phone: Start: 03-18-2023 End: 03-18-2023 Emergency department patient visit [facility] Kartik Padgett [facility]SC Work Phone: [facility]-Emergency Department Work Phone: Start: 02-23-2023 End: 02-23-2023 Patient encounter procedure [employer] Kartik Padgett [facility]SC Work Phone: [facility] Work Phone: Start: 02-12-2023 End: 02-12-2023 ambulatory [facility] Work Phone: Start: 02-12-2023 End: 02-12-2023 Patient encounter procedure [facility]-MRI - [facility] Work Phone: Start: 01-26-2023 End: 01-26-2023 ambulatory MD Daria GARRIDO [facility] Work Phone: Start: 01-26-2023 End: 01-26-2023 Patient encounter procedure MD Daria GARRIDO [facility]-Outpatient Breast Imaging Work Phone: Start: 01-07-2023 ambulatory Robyn CHE RN.HEAD SHIPPER Work Phone: OB/Gynecology Comment on above: Mammogram Start: 10-17-2022 End: 10-17-2022 Patient encounter procedure MD Daria GARRIDO [facility] Internal Medicine Work Phone: Start: 05-03-2022 End: 05-03-2022 Patient encounter procedure Robyn Warner APRN.HEAD SHIPPER Work Phone: OB/Gynecology Comment on above: Vulvovaginal itching (Primary Dx) Start: 04-27-2022 Telephone encounter Robyn augustin APRN.HEAD SHIPPER Work Phone: OB/Gynecology Comment on above: Patient Question Start: 04-18-2022 End: 04-18-2022 Patient encounter procedure Robyn Warner APRN.HEAD SHIPPER Work Phone: OB/Gynecology Comment on above: Vaginal discharge (P rimary Dx); Vagina itching Start: 02-11-2022 End: 02-11-2022 Emergency department patient visit No Primary Care Physician [facility]-Emergency Department Start: 01-16-2022 End: 01-16-2022 ambulatory No Primary Care Physician [facility] Work Phone: Start: 01-16-2022 End: 01-16-2022 Patient encounter procedure No Primary Care Physician [facility]-Pulmonary Services/Neurology Start: 12-23-2021 End: 12-23-2021 Patient encounter procedure No Primary Care Physician [facility] Start: 12-09-2021 End: 12-09-2021 Patient encounter procedure No Primary Care Physician [facility] Start: 11-29-2021 Patient encounter status No Pr imary Care Physician [facility] Start: 11-29-2021 End: 11-29-2021 Encounter for general adult medical examination without abnormal findings No Primary Care Physician [facility] Start: 11-29-2021 End: 11-29-2021 Patient encounter procedure No Primary Care Physician [facility] Start: 11-23-2021 End: 11-23-2021 Patient encounter procedure No Primary Care Physician [facility] Start: 09-28-2021 End: 09-28-2021 Patient encounter procedure No Primary Care Physician [facility] Start: 08-17-2021 End: 08-17-2021 Patient encounter procedure No Primary Care Physician [facility]-Outpatient Breast Imaging Start: 08-04-2021 End: 08-04-2021 Patient encounter procedure No Primary Care Physician [facility] Start: 07-28-2021 End: 07-28-2021 Patient encounter procedure No Primary Care Physician [facility] Start: 06-30-2021 Orders Only Ana Maira Baker MD Work Phone: [facility] Start: 05-09-2021 Registered Recurring No Primar y Care Physician [facility] - Other Staff Start: 02-17-2021 Orders Only Ana Maria Baker MD Work Phone: [facility] Start: 02-16-2021 Orders Only Ana Maria Baker MD Work Phone: [facility] Start: 01-28-2021 Chart abstracting Ana Maria Glover Work Phone: [facility] Start: 01-06-2021 End: 01-10-2021 Orders Only Cathy Salgado CNP Work Phone: [facility] Comment on above: Vaginal itching (Bria mariajose Dx) Occupational exposur e to COVID-19 virus (Primary Dx) Start: 12-14-2020 End: 12-14-2020 Orders Only Cathy Salgado CNP Work Phone: [facility] Comment on above: Situational anxiety (Primary Dx) Start: 12-08-2020 ambulatory YOBANI HIDALGO [facility] Ambulatory Start: 12-01-2020 End: 12-01-2020 Orders Only Ana Maria Baker MD Work Phone: [facility] Start: 11-25-2020 End: 11-25-2020 ambulatory SHERRY BAGLEY [facility] Start: 11-22-2020 End: 11-22-2020 Orders Only Ana Maria Baker MD Work Phone: [facility] Start: 10-22-2020 End: 10-22-2020 ambulatory SHAHLA RESTREPO [facility] Start: 10-22-2020 End: 10-22-2020 Postop follow up visit related to original px Shahla Castañeda MD Work Phone: [facility] Comment on above: 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) Start: 10-05-2020 End: 10-05-2020 ambulatory [facility] Start: 10-01-2020 End: 10-01-2020 ambulatory [facility] Start: 09-27-2020 End: 09-27-2020 Orders Only Ana Maria Baker MD Work Phone: [facility] Start: 09-21-2020 End: 09-25-2020 ambulatory ANA MARIA BAKER [facility] Start: 09-21-2020 End: 09-21-2020 ambulatory ANA MARIA BAKER [facility] Start: 09-21-2020 End: 09-21-2020 Office outpatient visit 15 minutes Ana Maria Baker MD Work Phone: [facility] Comment on above: 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); Physical exam Start: 09-21-2020 End: 09-21-2020 Physical examination Ana Maria Baker MD Work Phone: [facility] Start: 09-20-2020 End: 09-20-2020 Admission to same day surgery center Shahla Castañeda MD Work Phone: [facility] Start: 09-15-2020 End: 09-15-2020 ambulatory [facility] Start: 09-15-2020 End: 09-15-2020 Office outpatient visit 25 minutes Shahla Castañeda MD Work Phone: [facility] Comment on above: 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) Start: 09-09-2020 ambulatory [facility] Ambulatory Start: 08-27-2020 End: 08-28-2020 ambulatory ANA MARIA BAKER [facility] Start: 08-27-2020 End: 08-27-2020 Coordination of care plan Keily Ken Patient Navigator Start: 08-27-2020 End: 08-27-2020 Subsequent hospital visit by physician Shahla Castañeda Work Phone: [facility] Comment on above: Canceled (Provider/C ancelled) Arrived Start: 08-26-2020 End: 08-26-2020 Orders Only Ana Maria Baker Work Phone: [facility] Comment on above: Stress at home Start: 08-26-2020 End: 08-26-2020 Office outpatient new 45 minutes Ana Maria Baker Work Phone: [facility] Comment on above: Mass of upper inner quadrant of right breast (Primary Dx); Abnormal mammogram of right breast; Abnormal MRI, breast; Follow-up examination of abnormal mammogram Start: 08-25-2020 End: 08-26-2020 ambulatory PROVIDER NOT IN [facility] Start: 08-25-2020 End: 08-25-2020 Subsequent hospital visit by physician Provider Not In [facility] [employer] Comment on above: Arrived Start: 08-24-2020 End: 08-25-2020 Orders Only Ana Maria Olivia Work Phone: [facility] Comment on above: Stress at home (Prim alivia Dx) Follow-up examinatio n of abnormal mammogram (Primary Dx) Arrived Start: 08-20-2020 ambulatory ANA MARIA BAKER [facility] Ambulatory Start: 08-19-2020 End: 08-19-2020 Orders Only Ana Maria Olivia Work Phone: [facility] Comment on above: Follow-up examinatio n of abnormal mammogram (Primary Dx) Start: 08-17-2020 End: 08-17-2020 Orders Only Ana Maria Olivia Work Phone: [facility] Comment on above: Follow-up examinatio n of abnormal mammogram (Primary Dx) Start: 08-10-2020 End: 08-14-2020 Orders Only Ana Maria Olivia Work Phone: [facility] Comment on above: Encounter for screen ing for malignant neoplasm of breast, unspecified screening modality (Primary Dx) Lateral epicondyliti s, unspecified laterality (Primary Dx); Acute pain of left shoulder Start: 08-09-2020 End: 08-09-2020 Orders Only Ana Maria Olivia Work Phone: [facility] Comment on above: Encounter for screen ing for malignant neoplasm of breast, unspecified screening modality (Primary Dx) Start: 07-28-2020 End: 08-01-2020 ambulatory [facility] Start: 07-22-2020 End: 07-22-2020 Patient encounter procedure Ana Maria Olivia Work Phone: [facility] Comment on above: Left shoulder pain, unspecified chronicity; Lateral epicondylitis, unspecified laterality Cigarette nicotine d ependence without complication Start: 07-22-2020 End: 07-26-2020 ambulatory [facility] Start: 07-20-2020 End: 07-21-2020 Patient encounter procedure [facility] Start: 07-16-2020 End: 07-16-2020 Orders Only Cathy Salgado Work Phone: [facility] Comment on above: Cigarette nicotine d ependence without complication (Primary Dx) Start: 07-12-2020 End: 07-12-2020 Orders Only Ana Maria Olivia Work Phone: [facility] Comment on above: Lateral epicondyliti s, unspecified laterality (Primary Dx) Start: 07-07-2020 End: 07-07-2020 Orders Only Ana Maria Olivia Work Phone: [facility] Comment on above: Obesity (BMI 30-39.9 ) (Primary Dx) Start: 06-07-2020 End: 06-07-2020 Orders Only Ana Maria Olivia Work Phone: [facility] Comment on above: Obesity (BMI 30-39.9 ) Start: 06-01-2020 End: 06-01-2020 ambulatory [facility] Start: 05-07-2020 End: 05-11-2020 [facility] Start: 05-06-2020 End: 05-10-2020 [facility] Start: 05-06-2020 End: 05-06-2020 ambulatory [facility] Start: 05-06-2020 End: 05-06-2020 Office outpatient new 30 minutes Ana Maria Olivia Work Phone: [facility] Comment on above: Lateral epicondyliti s, unspecified laterality (Primary Dx); Obesity (BMI 30-39.9) Start: 04-29-2020 End: 04-29-2020 ambulatory [facility] Start: 01-11-2018 Patient encounter status Shahla Castañeda MD Work Phone: [facility] Start: 01-11-2018 End: 01-11-2018 Office outpatient new 30 minutes Cathy Salgado Work Phone: [facility] Start: 10-05-2017 End: 10-06-2017 Patient encounter procedure Cathy Salgado Facility:[facility] Procedures Date Procedure Procedure Detail Performing Clinician Start: 02-24-2025 Screening mammography Cornelius Padgett [employer] Work Phone: Start: 08-07-2024 MRI of lower extremity Kartik Padgett [employer] Work Phone: Start: 08-04-2024 Plain radiography of pelvis Kartik Padgett [facility] Work Phone: Start: 08-04-2024 Plain X-ray of femur Marco Antonio Padgett [facility] Work Phone: Start: 03-19-2023 Anaerobic microbial culture [facility] Kartik Padgett [facility] Work Phone: Start: 03-19-2023 Investigation of tra nsfusion reaction [facility] Kartik Padgett [facility] Work Phone: Start: 03-19-2023 Microbial culture, routine [facility] Kartik Padgett [facility] Work Phone: Start: 03-18-2023 X-ray of both feet [facility] Kartik Padgett [facility] Work Phone: Start: 02-12-2023 MRI of joint of lowe r extremity Start: 01-26-2023 Screening mammography M Adalberto Martines [facility] Start: 02-11-2022 X-ray of both feet [...] Maria Olivia Start: 08-13-2020 Mammography Robyn augustin APRN.HEAD SHIPPER Work Phone: Start: 05-06-2020 Adult depression scr eening assessment Ana Maria Olivia Plan of Treatment Date Care Activity Detail Author Start: 02-12-2032 Urine microalbumin profile DTaP,Tdap,Td Vaccine (8 - Td or Tdap) [facility] Start: 01-12-2028 [facility] Start: 01-12-2028 Urine microalbumin profile DTAP,TDAP,TD (7 - Td or Tdap) [facility] Start: 04-03-2025 End: 04-03-2025 Patient encounter procedure 04/03/2025 7:30 AM EST Office Visit OB/Gynecology [address] [place] [address] Robyn Warner APRN.HEAD SHIPPER [address] [place] [address] weight management follow up OB/Gynecology Comment on above: weight management fo llow up Start: 03-20-2025 End: 03-20-2025 Patient encounter procedure 03/20/2025 7:00 AM EDT Office Visit OB/Gynecology [address] [place] [address] Robyn Warner APRN.HEAD SHIPPER [address] [place] [address] 3 month follow up OB/Gynecology Comment on above: 3 month follow up Start: 02-06-2025 End: 02-06-2025 Patient encounter procedure 02/06/2025 10:10 AM EDT Appointment Mammogram [address] [place] [address] Mammogram Start: 01-31-2025 Screening for malign ant neoplasm of breast Mammogram Screening [facility] Start: 01-26-2025 Influenza vaccination Influenza Vacc ine (#1) [facility] Start: 12-30-2024 Application of ice collar, cap or bag [facility] Start: 12-30-2024 Catheterization of vein [facility] Start: 12-30-2024 Elevation of affecte d extremity [facility] Start: 12-30-2024 Following clinical pathway protocol [facility] Start: 12-30-2024 Patient discharge [facility] Start: 12-30-2024 Procedure discontinued [facility] Start: 12-30-2024 Taking patient vital signs [facility] Start: 12-30-2024 Vital signs measurements [facility] Start: 12-30-2024 [facility] Start: 12-30-2024 Medication education [facility] Start: 12-19-2024 End: 03-20-2025 Comprehensive metabolic 2000 panel - Serum or Plasma COMPREHENSIVE METABOLIC PANEL Lab Routine Encounter for long-term (current) use of medications Expected: 12/19/2024, Expires: 03/20/2025 [facility] Work Phone: Comment on above: Expected: 12/19/2024 , Expires: 03/20/2025 Start: 12-19-2024 End: 12-19-2024 Patient encounter procedure 12/19/2024 7:00 AM EDT Office Visit OB/Gynecology [address] [place] [address] Robyn Warner APRN.HEAD SHIPPER [address] [place] [address] weight management follow up OB/Gynecology Comment on above: weight management fo llow Start: 11-21-2024 End: 11-21-2024 Patient encounter procedure 11/21/2024 7:30 AM EDT Office Visit OB/Gynecology [address] [place] [address] Robyn Warner APRN.HEAD SHIPPER [address] [place] [address] ANNUAL OB/Gynecology Comment on above: ANNUAL Start: 09-25-2024 End: 09-25-2024 Patient encounter procedure 09/25/2024 3:30 PM EDT Office Visit OB/Gynecology [address] [place] [address] Robyn Warner APRN.HEAD SHIPPER [address] [place] [address] wt mgmt f/up OB/Gynecology Comment on above: wt mgmt f/up Start: 07-03-2024 End: 07-03-2024 Patient encounter procedure 07/03/2024 2:30 PM EST Office Visit OB/Gynecology [address] [place] [address] Robyn Warner FAMILY LAW MEDIATOR.HEAD SHIPPER [address] [place] [address] wt mgmt f/up ok per AG OB/Gynecology Comment on above: wt mgmt f/up ok per AG Start: 06-10-2024 Anes nerve muscle td n fascia&bursa forearm wrist ANESTH LOWER ARM SURGERY [facility] Start: 06-10-2024 Injection therapeuti c carpal tunnel THER INJECTION CARP TUNNEL [facility] Start: 06-10-2024 Neuroplasty &/transp os median nrv carpal tunne CARPAL TUNNEL SURGERY [facility] Start: 06-10-2024 Application of ice collar, cap or bag [facility] Start: 06-10-2024 Catheterization of vein [facility] Start: 06-10-2024 Elevation of affecte d extremity [facility] Start: 06-10-2024 Following clinical pathway protocol [facility] Start: 06-10-2024 Patient discharge [facility] Start: 06-10-2024 Procedure discontinued [facility] Start: 06-10-2024 Taking patient vital signs [facility] Start: 06-10-2024 Vital signs measurements [facility] Start: 06-10-2024 [facility] Start: 06-10-2024 Medication education [facility] Start: 04-09-2024 End: 04-09-2024 Patient encounter procedure 04/09/2024 11:30 AM EST Office Visit OB/Gynecology [address] [place] [address] Warner, Robyn, FAMILY LAW MEDIATOR.HEAD SHIPPER [address] [place] [address] wt mgmt f/u OB/Gynecology Comment on above: wt mgmt f/u Start: 02-13-2024 End: 02-13-2024 Patient encounter procedure 02/13/2024 7:30 AM EDT Office Visit OB/Gynecology [address] [place] [address] Robyn Warner APRN.HEAD SHIPPER [address] [place] [address] wt mgt F/up OB/Gynecology Comment on above: wt mgt F/up Start: 02-01-2024 End: 02-01-2024 Patient encounter procedure 02/01/2024 8:10 AM EDT Appointment Mammogram [address] [place] [id number] TAMIKO SCREENING W RJ Encounter for gynecological [...] Vaccine ( season) Covid-19 Vaccine ( season) [facility] Start: 01-27-2024 Covid-19 Vaccine ( season) Covid-19 Vaccine ( season) [facility] Start: 01-27-2024 Influenza vaccination Influenza Vacc ine (#1) [facility] Start: 01-27-2024 Screening for malign ant neoplasm of breast Mammogram Screening [facility] Start: 11-23-2023 End: 11-23-2023 Patient encounter procedure 11/23/2023 7:00 AM EDT Office Visit OB/Gynecology [address] [place] [address] Robyn Warner APRN.HEAD SHIPPER [address] [place] [address] Annual exam/breast exam OB/Gynecology Comment on above: Annual exam/breast e xam Start: 05-28-2023 Behavioral Health Screening Behavioral Health Screening [facility] Start: 03-18-2023 End: 03-18-2023 [facility] Start: 01-26-2023 Covid-19 Vaccine ( season) Covid-19 Vaccine () [facility] Start: 01-26-2023 Influenza vaccination INFLUENZA (#1) [facility] Start: 05-28-2022 [facility] Start: 01-26-2022 Influenza vaccination INFLUENZA (#1) [facility] Start: 01-03-2022 HPV TESTING HPV TESTING [facility] Start: 01-03-2022 PAP TESTING PAP TESTING [facility] Start: 01-03-2022 Screening for malign ant neoplasm of cervix [facility] Start: 08-19-2021 Screening for malign ant neoplasm of breast Mammogram [facility] Start: 08-19-2021 Screening mammography Mammogram [facility] Start: 08-13-2021 Mammography MAMMOGRAM [facility] Start: 05-28-2021 DEPRESSION ASSESSMENT [facility] Start: 05-06-2021 Adolescent depressio n screening assessment Depression Screening (PHQ9) [facility] Start: 05-06-2021 Depression screening using PHQ-9 (Patient Health Questionnaire 9) score [facility] Start: 04-22-2021 End: 04-22-2021 Patient encounter procedure 04/22/2021 Office Visit Breast Surgery Shahla Castañeda MD [address] [place] [address] [phone] [facility] Start: 01-26-2021 Influenza vaccination [facility] Start: 11-25-2020 End: 11-25-2020 Patient encounter procedure 11/25/2020 Office Visit Breast Surgery Sherry Bagley PA-C [address] [address] [phone] [facility] Start: 10-22-2020 End: 10-22-2020 Follow-up encounter 10/22/2020 Follow-Up Breast Surgery Shahla Castañeda MD [address] [facility] [address] [place] [address] [phone] [facility] Start: 10-05-2020 End: 10-05-2020 Admission to same day surgery center 10/05/2020 Surgery Shahla Castañeda MD [address] [facility] [address] [place] [address] [phone] Right breast open excisional biopsy with intraoperative ultrasound-guided localization [facility] Comment on above: Right breast open ex cisional biopsy with intraoperative ultrasound-guided localization Start: 10-05-2020 Subsequent hospital visit by physician 10/05/2020 Hospital Encounter Shahla Castañeda MD [address] [facility] [address] [place] [address] [phone] [facility] Start: 09-21-2020 End: 09-21-2020 Patient encounter procedure 09/21/2020 Office Visit Primary Care Ana Maria Baker MD [address] [address] [phone] [facility] Start: 08-27-2020 End: 08-26-2021 US Breast Right Limited US Breast Right Limited Imaging Routine Mass of upper inner quadrant of right breast Expected: 08/27/2020, Expires: 08/26/2021 [facility] Comment on above: Expected: 08/27/2020 , Expires: 08/26/2021 Start: 08-27-2020 End: 08-27-2020 Office Visit [facility] Start: 08-26-2020 End: 08-26-2021 Ultrasonography guided biopsy of right breast US Breast Biopsy Right Imaging Routine Mass of upper inner quadrant of right breast Expected: 08/26/2020, Expires: 08/26/2021 [facility] Comment on above: Expected: 08/26/2020 , Expires: 08/26/2021 Start: 08-26-2020 End: 08-26-2020 [facility] Start: 08-24-2020 End: 08-24-2021 Ultrasonography guided biopsy of right breast US Breast Biopsy Right Imaging Routine Stress at home Expected: 08/24/2020, Expires: 08/24/2021 [facility] Comment on above: Expected: 08/24/2020 , Expires: 08/24/2021 Start: 08-20-2020 End: 08-20-2021 MRI of breast MR Breast Bilateral With And Without Contrast Imaging Routine Follow-up examination of abnormal mammogram Expected: 08/20/2020, Expires: 08/20/2021 [facility] Comment on above: Expected: 08/20/2020 , Expires: 08/20/2021 Start: 08-19-2020 End: 08-19-2021 MR Breast Right With Contrast MR Breast Right With Contrast Imaging Routine Follow-up examination of abnormal mammogram Expected: 08/19/2020, Expires: 08/19/2021 [facility] Comment on above: Expected: 08/19/2020 , Expires: 08/19/2021 Start: 08-19-2020 End: 08-19-2020 Treatment [facility] Start: 08-17-2020 End: 10-17-2021 MG Breast - bilateral diagnostic Mammography Diagnostic Bilateral Imaging Routine Follow-up examination of abnormal mammogram Expected: 08/17/2020, Expires: 10/17/2021 [facility] Comment on above: Expected: 08/17/2020 , Expires: 10/17/2021 Start: 08-12-2020 End: 08-12-2020 Treatment [facility] Start: 08-10-2020 End: 10-10-2021 MG Breast - bilateral screening Mammography Screening Bilateral Imaging Routine Encounter for screening for malignant neoplasm of breast, unspecified screening modality Expected: 08/10/2020, Expires: 10/10/2021 [facility] Comment on above: Expected: 08/10/2020 , Expires: 10/10/2021 Start: 08-10-2020 End: 08-10-2020 Treatment [facility] Start: 08-09-2020 End: 08-09-2020 Office Visit [facility] Start: 08-09-2020 End: 10-09-2021 MG Breast - bilateral screening Mammography Screening Bilateral Imaging Routine Encounter for screening for malignant neoplasm of breast, unspecified screening modality Expected: 08/09/2020, Expires: 10/09/2021 [facility] Comment on above: Expected: 08/09/2020 , Expires: 10/09/2021 Start: 08-05-2020 End: 08-05-2020 Treatment 08/05/2020 Treatment Rehabilitation Ana Maria Baker MD [address] [place] [address] [phone] Marlon Mills PTA [facility] Start: 07-29-2020 End: 07-29-2020 Treatment 07/29/2020 Treatment Rehabilitation Ana Maria Baker MD [address] [place] [address] [phone] Marlon Mills PTA [facility] Start: 07-22-2020 End: 07-22-2020 Evaluation 07/22/2020 Evaluation Rehabilitation Ana Maria Baker MD [address] [place] [address] [phone] Chato Britton, PT [facility] Start: 01-27-2020 Influenza vaccination Sequenti al Influenza Vaccine (#1) [facility] Start: 01-27-2020 Influenza vaccinatio n given Sequential Influenza Vaccine (#1) [facility] Start: 01-04-2020 Screening for malign ant neoplasm of cervix Cervical Cancer Screening [facility] Start: 01-26-2018 Influenza vaccination SEQUENTI AL INFLUENZA VACCINE (#1) [facility] Start: 03-27-2008 Hepatitis B Vaccine (3 of 3 - 19+ 3-dose series) Hepatitis B Vaccine (3 of 3 - 19+ 3-dose series) [facility] Start: 01-30-2008 HEPATITIS B (3 of 3 - 19+ 3-dose series) HEPATITIS B (3 of 3 - 19+ 3-dose series) [facility] Start: 01-20-2008 HEPATITIS B (3 of 3 - 19+ 3-dose series) HEPATITIS B (3 of 3 - 19+ 3-dose series) [facility] Start: 07-31-2007 HPV Vaccine (1 - 3-d ose SCDM series) HPV Vaccine (1 - 3-dose SCDM series) [facility] Start: 1998 [facility] Start: [facility] Hepatitis C antibody , confirmatory test Hepatitis C Screening [facility] Start: 1998 Hepatitis C screening Hepatitis C Sc [facility] Start: 1998 HEPATITIS C SCREENING HEPATITIS C [facility] Start: 1998 HIV SCREENING HIV SCREENING [facility] Start: 1998 HIV screening HIV Screening [facility] Start: 1996 COVID-19 Vaccine (1 of 2) COVI D-19 Vaccine (1 of 2) [facility] Start: 1996 COVID-19 Vaccine (1) COVID-19 Vaccin e (1) [facility] Start: 07-31-1995 HIV screening HIV Screening [facility] Start: 1992 COVID-19 Vaccine (1) COVID-19 Vaccin e (1) [facility] Start: 1986 Pneumococcal Vaccine : Ped or At-Risk (1 of 4 - PCV13) Pneumococcal Vaccine: Ped or At-Risk (1 of 4 - PCV13) [facility] Start: 07-31-1983 History and physical examination, annual for health maintenance Wellness Visit [facility] Start: 01-30-1981 COVID-19 VACCINE (#1) COVID-19 VACCI NE (#1) [facility] Start: 1980 Screening mammography Mammogram [facility] BACTERIAL VAGINOSIS AMPLIFICATION BACTERIAL VAGINOSIS AMPLIFICATION Lab Routine Vaginal discharge Vagina itching 04/18/2022 4:03 PM EST [facility] Work Phone: End: 05-06-2021 Body mass index (BMI) [Ratio] Vitamin D, Total, 25-OH Lab Routine Obesity (BMI 30-39.9) 1 Occurrences starting 05/06/2020 until 05/06/2021 [facility] Comment on above: 1 Occurrences starti ng 05/06/2020 until 05/06/2021 EILEEN / TRICHOMONA S AMPLIFICATION EILEEN / TRICHOMONAS AMPLIFICATION Microbiology Routine Vaginal discharge Vagina itching 04/18/2022 4:03 PM EST [facility] Work Phone: End: 05-06-2021 Complete blood count with white cell differential, manual CBC and Differential Lab Routine Obesity (BMI 30-39.9) 1 Occurrences starting 05/06/2020 until 05/06/2021 [facility] Comment on above: 1 Occurrences starti ng 05/06/2020 until 05/06/2021 End: 05-06-2021 Comprehensive metabolic 2000 panel Comprehensive Metabolic Panel Lab Routine Obesity (BMI 30-39.9) 1 Occurrences starting 05/06/2020 until 05/06/2021 [facility] Comment on above: 1 Occurrences starti ng 05/06/2020 until 05/06/2021 End: 09-21-2021 Comprehensive metabolic 2000 panel - Serum or Plasma Comprehensive Metabolic Panel Lab Routine 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 Physical exam 1 Occurrences starting 09/21/2020 until 09/21/2021 [facility] Comment on above: 1 Occurrences starti ng 09/21/2020 until 09/21/2021 Comprehensive metabo lic 2000 panel - Serum or Plasma Comprehensive Metabolic Panel Lab Routine 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 Physical exam 09/21/2020 9:20 AM EDT [facility] End: 12-22-2024 DBT Breast - bilateral screening TAMIKO SCREENING W [facility] Radiology Routine Encounter for gynecological examination (general) (routine) without abnormal findings Encounter for screening mammogram for breast cancer Heterogeneously dense tissue of both breasts on mammography 1 Occurrences starting 11/23/2023 until 12/22/2024 [facility] Work Phone: Comment on above: 1 Occurrences starti ng 11/23/2023 until 12/22/2024 End: 02-19-2025 DBT Breast - bilateral screening TAMIKO SCREENING W [facility]J Radiology Routine Encounter for screening mammogram for malignant neoplasm of breast 1 Occurrences starting 01/21/2024 until 02/19/2025 [facility] Work Phone: Comment on above: 1 Occurrences starti ng 01/21/2024 until 02/19/2025 DBT Breast - bilater al screening TAMIKO SCREENING W [facility] Radiology Routine Encounter for screening mammogram for malignant neoplasm of breast 02/01/2024 1:20 PM EDT [facility] Work Phone: End: 02-27-2026 DBT Breast - bilateral screening TAMIKO SCREENING W [facility] Radiology Routine Encounter for screening mammogram for malignant neoplasm of breast 1 Occurrences starting 01/28/2025 until 02/27/2026 [facility] Work Phone: Comment on above: 1 Occurrences starti ng 01/28/2025 until 02/27/2026 Drugs of abuse urine screening test Drugs of Abuse Screen, Urine Lab Routine Obesity (BMI 30-39.9) 05/06/2020 2:03 PM [facility] Fungus identified in Unspecified specimen by Culture FUNGAL SCREEN Microbiology Routine Vulvovaginal itching Ordered: 05/03/2022 [facility] Work Phone: Comment on above: Ordered: 05/03/2022 End: 05-06-2021 HbA1c (Bld) [Mass fraction] Hemoglobin A1c Lab Routine Obesity (BMI 30-39.9) 1 Occurrences starting 05/06/2020 until 05/06/2021 [facility] Comment on above: 1 Occurrences starti ng 05/06/2020 until 05/06/2021 End: 05-06-2021 Lipid 1996 panel Lipid Panel Lab Routine Obesity (BMI 30-39.9) 1 Occurrences starting 05/06/2020 until 05/06/2021 [facility] Comment on above: 1 Occurrences starti ng 05/06/2020 until 05/06/2021 End: 10-26-2021 Mammography Stereotactic Breast Biopsy Right Mammography Stereotactic Breast Biopsy Right Imaging Routine Mass of upper inner quadrant of right breast 1 Occurrences starting 08/26/2020 until 10/26/2021 [facility] Comment on above: 1 Occurrences starti ng 08/26/2020 until 10/26/2021 End: 08-27-2020 Mammography Stereotactic Breast Biopsy Right Mammography Stereotactic Breast Biopsy Right Imaging Routine Mass of upper inner quadrant of right breast Once for 1 Occurrences starting 08/27/2020 until 08/27/2020 [facility] Comment on above: Once for 1 Occurrenc es starting 08/27/2020 until 08/27/2020 Patient Education [facility] Work Phone: Patient referral [facility] Work Phone: Procedure on tissue specimen [facility] Comment on above: Release Upon Orderin g for 1 Occurrences starting 08/27/2020, 1 completed End: 01-06-2022 SARS-CoV-2 (COVID-19) IgG Ab [Presence] in Serum or Plasma by Immunoassay SARS-CoV-2 Antibody, IgG Lab Routine Occupational exposure to COVID-19 virus 1 Occurrences starting 01/06/2021 until 01/06/2022 [facility] Comment on above: 1 Occurrences starti ng 01/06/2021 until 01/06/2022 SARS-CoV-2 (COVID-19 ) IgG Ab [Presence] in Serum or Plasma by Immunoassay SARS-CoV-2 Antibody, IgG Lab Routine Occupational exposure to COVID-19 virus 01/06/2021 3:06 PM EDT [facility] End: 05-06-2021 TSH Qn TSH with Reflex Free T4 Lab Routine Obesity (BMI 30-39.9) 1 Occurrences starting 05/06/2020 until 05/06/2021 [facility] Comment on above: 1 Occurrences starti ng 05/06/2020 until 05/06/2021 Immunizations Immunization Date Immunization Notes Care Provider Gricelda raya 04-10-2024 influenza, seasonal, injectable, preservative free Kartik Padgett [employer] Work Phone: [facility] 04-10-2024 influenza virus vaccine, unspecified formulation Ccf Provider [facility] 03-15-2023 influenza, injectabl e, quadrivalent, preservative free [employer] Kartik Padgett VSC Work Phone: [facility] 03-15-2023 influenza virus vaccine, unspecified formulation Robyn Warner APRN.HEAD SHIPPER Work Phone: [facility] 02-11-2022 tetanus toxoid, reduced diphtheria toxoid, and acellular pertussis vaccine, adsorbed No Primary Care Physician [facility] 05-16-2021 influenza, injectabl e, quadrivalent, preservative free [facility] 05-16-2021 influenza, seasonal, injectable No Primary Care Physician [facility] 09-18-2018 hepatitis A vaccine, adult dosage Ana Maria [facility] 01-11-2018 tetanus toxoid, reduced diphtheria toxoid, and acellular pertussis vaccine, adsorbed; Translations: [TDAP] [facility] 12-12-2017 hepatitis A vaccine, adult dosage Ana Maria [facility] 12-12-2017 hepatitis A vaccine, unspecified formulation Ana Maria [facility] 01-31-2008 hepatitis B vaccine, pediatric or pediatric/adolescent dosage Ana Maria [facility] 08-30-2007 hepatitis B vaccine, adult dosage [facility] 08-30-2007 hepatitis B vaccine, unspecified formulation Robyn Warner APRN.HEAD SHIPPER Work Phone: [facility] 07-29-2007 tuberculin skin test ; purified protein derivative solution, intradermal Robyn Warner FAMILY LAW MEDIATOR.HEAD SHIPPER Work Phone: [facility] 07-24-2007 tuberculin skin test ; purified protein derivative solution, intradermal Robyn Warner FAMILY LAW MEDIATOR.HEAD SHIPPER Work Phone: [facility] 07-22-2007 hepatitis B vaccine, adult dosage [facility] 07-22-2007 tetanus toxoid, reduced diphtheria toxoid, and acellular pertussis vaccine, adsorbed [facility] 05-28-1993 diphtheria and tetan us toxoids, adsorbed for pediatric use [facility] 01-17-1993 measles, mumps and rubella virus vaccine [facility] 02-19-1987 trivalent poliovirus vaccine, live, oral [facility] 02-09-1986 diphtheria, tetanus toxoids and pertussis vaccine [facility] 02-09-1986 measles, mumps and rubella virus vaccine [facility] 02-09-1986 trivalent poliovirus vaccine, live, oral [facility] 02-09-1986 tuberculin skin test ; purified protein derivative solution, intradermal Robyn Warner FAMILY LAW MEDIATOR.HEAD SHIPPER Work Phone: [facility] 01-21-1981 diphtheria, tetanus toxoids and pertussis vaccine [facility] 01-21-1981 trivalent poliovirus vaccine, live, oral [facility] 1980 diphtheria, tetanus toxoids and pertussis vaccine [facility] 1980 trivalent poliovirus vaccine, live, oral [facility] Payers Date Payer Category Payer Self-pay [id number] 2023 Unknown [id number] 2021 Private Health Insurance [id number]. [id number] 2020 Unknown [id number] 1.2.840.895462.1.13.385.2. 7.3.005235.315 2020 Unknown [id number] 2014 Unknown 2014 Unknown [id number] 1980 Unknown [id number] 2.16.840.1.046578.3.579.2. 717 1980 Unknown [id number] 2.16.840.1.866136.3.579.2. 902 1980 Unknown [id number] 2.16.840.1.751662.3.579.2. 900 1980 Unknown [id number] 2.16.840.1.011524.3.579.2. 900 1980 Unknown [id number] 2.16.840.1.528593.3.579.2. 900 1980 Unknown [id number] 2.16.840.1.017438.3.579.2. 900 1980 Unknown [id number] 2.16.840.1.833839.3.579.2. 900 1980 Unknown [id number] 2.16.840.1.046275.3.579.2. 900 1980 Unknown [id number] 2.16.840.1.474509.3.579.2. 900 1980 Unknown [id number] 2.16.840.1.985090.3.579.2. 900 1980 Unknown [id number] 2.16.840.1.047935.3.579.2. 900 1980 Unknown [id number] 2.16.840.1.696800.3.579.2. 900 1980 Unknown [id number] 2.16.840.1.129565.3.579.2 1980 Unknown [id number] 2.16.840.1.871245.3.579.2 1980 Unknown [id number] 2.16840.1.977672.3.579.2 1980 Unknown [id number] 2.16840.1.305075.3.579.2 1980 Unknown [id number] 2.16840.1.938483.3.579.2 1980 Unknown [id number] 2.16840.1.605885.3.579.2 1980 Unknown [id number] 2.16840.1.135880.3.579.2 1980 Unknown [id number] 2.16.840.1.012722.3.579.2 1980 Unknown [id number] 2.16840.1.728828.3.579.2 1980 Unknown [id number] 2.16840.1.104780.3.579.2 1980 Unknown [id number] 2.16840.1.149632.3.579.2 1980 Unknown [id number] 2.16.840.1.146189.3.579.2 1980 Unknown [id number] 2.16840.1.977123.3.579.2 1980 Unknown [id number] 2.16.840.1.284760.3.579.2. 1980 Unknown [id number] 2.16.840.1.846063.3.579.2. 1980 Unknown [id number] 2.16.840.1.985709.3.579.2. 1980 Unknown [id number] 2.840.1.349592.3.579.2. 1980 Unknown [id number] 2.840.1.342870.3.579.2. 1980 Unknown [id number] 2.840.1.356596.3.579.2 1980 Unknown [id number] 2.840.1.261600.3.579.2 Private Health Insurance [id number] Unknown [id number] Unknown [facility] [id number] Unknown S&S COLLECT SE LF PAY [id number] Unknown [facility] 0 [id number] Unknown [id number] 2.840.1.761558.3.579.2. 462 Unknown [id number] 2.16840.1.929542.3.579.2. 462 Unknown [id number] 2.16840.1.399318.3.579.2. 462 Unknown [id number] 2.16840.1.159374.3.579.2. 462 Unknown [id number] 2.840.1.771419.3.579.2. 462 Unknown [id number] 2.16.840.1.402979.3.579.2. 462 Unknown [id number] 2.16.840.1.903771.3.579.2. 462 Unknown [id number] 2.16.840.1.834249.3.579.2. 462 Unknown [id number] 2.16.840.1.604180.3.579.2. 462 Unknown [id number] 2.16.840.1.923031.3.579.2. 462 Unknown [id number] 2.16.840.1.237344.3.579.2. 462 Unknown [id number] 2.16.840.1.208923.3.579.2. 462 Unknown [id number] 2.16.840.1.798620.3.579.2. 462 Unknown [id number] 2.16.840.1.629455.3.579.2. 462 Unknown [id number] 2.16.840.1.135588.3.579.2. 462 Unknown [id number] 2.16.840.1.911397.3.579.2. 462 Unknown [id number] 2.16.840.1.019327.3.579.2. 462 Social History Date Type Detail Facility Start: 01-11-2018 End: 07-28-2020 Tobacco smoking status GAIS Current some day smoker [facility] Start: 05-28-1999 End: 07-26-2020 History of tobacco use Cigarette Smoker [facility] Start: 01-11-2018 End: 11-23-2023 Cigarettes smoked current (pack per day) - Reported [facility] Start: 1980 Sex Assigned At Not on file O [facility] Start: 05-06-2020 End: 04-18-2022 Tobacco use and exposure Never used [facility] Start: 05-06-2020 End: 12-19-2024 Alcohol intake Current drinker of alcohol (finding) [facility] Start: 05-06-2020 End: 09-21-2020 History SDOH Social Connections Get Together 2 [facility] Start: 05-06-2020 End: 09-21-2020 History SDOH Financial 5 [facility] Start: 05-06-2020 End: 09-21-2020 History SDOH Food Worry 1 [facility] Start: 05-06-2020 Tobacco Comment SOCIAL ONLY WH EN HAVING DRINKS [facility] Start: 05-06-2020 Alcohol Comment SOCIAL [facility] Start: 04-08-2022 End: 04-18-2022 Exposure to SARS-CoV-2 (event) Not sure [facility] Start: 05-06-2020 Tobacco Comment SOCIAL ONLY WH EN HAVING DRINKS [facility] Start: 09-21-2020 End: 12-16-2024 Tobacco smoking status NHIS Former smoker [facility] Start: 05-28-1999 End: 07-26-2020 History of tobacco use Current smoker [facility] Start: 10-22-2020 End: 11-25-2020 Alcohol intake Ex-drinker (finding) [facility] Start: 08-04-2021 End: 09-26-2024 Tobacco smoking status NHIS Unknown if ever smoked [facility] Start: 1980 Sex Assigned At Female W [facility] Start: 04-18-2022 Tobacco Comment social smoker now, estimates 1 pack lasts her two weeks [facility] Start: 05-03-2022 End: 11-23-2023 Tobacco use panel [facility] Start: 04-28-2012 Adult Depression Screening Assessment 0 [facility] Start: 08-07-2024 Tobacco smoking stat us NHIS Smokes tobacco daily (finding) [facility] Start: 08-16-2024 Sex Female (finding) [facility] NEGATED: Highlighted row Not [facility] Goals Date Patient Goal Desired Activity /State Functional Status Date Assessment Result Facility 01-02-2015 Are you deaf, or do you have serious difficulty hearing No 01/02/2015 8:48 AM ACET Debra Ruff LPN No [facility] 01-02-2015 Are you blind, or do you have serious difficulty seeing, even when wearing glasses No 01/02/2015 8:48 AM Debra Ram LPN No [facility] 01-02-2015 Do you have serious difficulty walking or climbing stairs No 01/02/2015 8:48 AM EDT Debra Ruff LPN No [facility] 01-02-2015 Do you have difficul ty dressing or bathing No 01/02/2015 8:48 AM EDT Debra Ruff LPN No [facility] 01-02-2015 Because of a physica l, mental, or emotional condition, do you have difficulty doing errands alone such as visiting a physician's office or shopping No 01/02/2015 8:48 AM EDT Debra Ruff LPN No [facility] Mental Status Date Assessment Result Facility 06-10-2024 Cognitive function Voice/Name;To [facility] Work Phone: 01-02-2015 Because of a physica l, mental, or emotional condition, do you have serious difficulty concentrating, remembering, or making decisions No 01/02/2015 8:48 AM EDT Debra Ruff LPN No [facility] Clinical Notes 06-10-2015 to 01-14-2025 Telephone Encounter - Linwood Wiseman RN - 01/14/2025 11:44 AM EDTTelephone Encounter - Linwood Wiseman RN - 01/14/2025 11:44 AM Robyn Cabrera APRN.HEAD SHIPPER - 12/19/2024 7:00 AM EDTPatient Instructions Note Date & Type Note Facility 01-14-2025 Telephone encounter Note Lab results from [facility] collected on 12/30/24 on AG desk for review. Linwood Wiseman RN [facility] 01-14-2025 Miscellaneous Notes Lab results from [facility] collected on 12/30/24 on AG desk for review. Linwood Wiseman RN documented in this encounter [facility] 12-30-2024 Note [facility] Medical Records Department [address] [place] [address] History Physical Exam 12/30/24 0704 MR#: [id number] Acct: [id number] Name: DO OLSON Rep #: [id number] : 1980 44 From: Eulogio Mello DO PCP: KYRA Riddle Status:[facility] Location: [place] [address] History and Physical Date of Admission: 12/30/24 [facility] [address] [place] [address] [address] [place] [address] OFFICE VISIT Date of Service: 09/26/24 MR#: [id number] Acct: [id number] Name: DO OLSON Rep #: [id number] : 1980 Provider: Dr. Eulogio Mello DO Age/Sex: 44/F Location: [facility] Status: Signed Intake Vital Signs 09/22/2510:14 Height [...] have any concerns. (more content not included)... [facility] 12-19-2024 History of Presen t illness [...] and granola S - none D - 1276-7516 protein and veg and small carb - potato/pasta/corn/rice No dessert S - rare - popcorn or ice cream Fluids: water Bedtime - 6210-9071 Eating Disorder binge eating Dietary changes: - [...] and was told by a doctor that "it's just the way it is." Sleep Issues - Reports poor sleep, getting [...] from his new company and that their transactional attorney said they have a strong case. - Has missed work to support her during this time. 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 The patient is [...] 4 - Moderate documented in this encounter [facility] 12-19-2024 Note HNO ID: [id number] Author: ROBYN WARNER APRN.CNP Service: ? Author [...] and granola S - none D - 5223-2941 protein and veg and small carb - potato/pasta/corn/rice No dessert S - rare - popcorn or ice cream Fluids: water Bedtime - 6873-6792 Eating Disorder binge eating Dietary changes: - [...] and was told by a doctor that "it's just the way it is." Sleep Issues - Reports poor sleep, getting [...] from his new company and that their transactional attorney said they have a strong case. - Has missed work to support her during this time. - Reports that her has been very stressed, stating, "My and I have been together since 1997 and I've never seen him like this before." - Coping with stress by managing weight and engaging in physical activities like barn chores and house cleaning. CrCl cannot be calculated (No successful lab value found.). 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 [facility] 12-17-2024 Instructions Robyn Warner APRN.HEAD SHIPPER - 12/17/2024 8:10 PM EDT -- Metformin can interfere with the absorption of B12 in your food, please add a B12 1,000-2,400 mcg supplement every day - Mounjatinro (tirzepatide): increase dose to 7.5 mg today, [...] protein & 2g carb Two Good Lowfat Bahamian Yogurt, Lower Sugar - 12g protein & [...] oz is 28 gm protein Beef, Chicken, [place], Pork, Eli 1 oz 7g Fish, Tuna [...] (not a meal replacement) Protein AND carbs Beef/[place] Jerky 1 oz dried 10-15g protein - [...] 8 oz -13g protein & 6g carb Bahamian yogurt Full Fat Bahamian Yogurt 1 cup - 20.4g protein & 9.1g carb 2% Bahamian Yogurt 1 cup - 22.7g protein & 9.1g carb 0% (fat-free) Bahamian Yogurt - 1 cup 24g protein & 9.3g carb Aldi Protein Bahamian yogurt single svg - 13/g15g protein & 7g carb Chobani Zero Sugar single svg: - 12g protein & 5g carb Dannon Bahamian Light + Fit 1 single svg - 12g protein & 9g carb Oikos Pro single svg - 20g protein & 8g carb Oikos Triple Zero Bahamian Nonfat Yogurt 1 single svg - 15g protein & 7g carb :ratio, KETO Friendly Dairy Snack 1 single svg - 15g protein & 2g carb :ratio Protein 1 single svg - 25g protein & 8g carb Two Good Lowfat Bahamian Yogurt, [place], Lower Sugar - 12g protein & 2g carb Yoplait Protein 1 single svg 15g protein & 5g carb Dairy Free - [place] unsweetened Bahamian almond/soy 15g protein & 3g carb Dairy [...] Cream Cheese 1.7g protein & 1.2g carb BBE whipped Bahamian cream cheese (WM) 2 T 3g protein 2g carb Feta 4g protein & 1.2g carb Mozzarella 6.3g protein & 0.6g carb Parmesan 10g protein & 0.9g carb American 7.6g protein & 1.5g carb Cottage Cheese 1/2 c Breakstone 2% 13g protein 7g carb Nandini 2% 13g protein 5 g carb Good Culture 2% 14g protein 3g carb Lactaid 13g protein 5g carb Patel s Low Fat 12g protein & 4g carb Legumes Lentils cup 9g protein & 20g carb Mcdonald beans cup 7g protein & 20g carb Kidney, Black, Billings[place], Cannellini beans cup 8g protein & 20g carb Chickpeas 1/2 c 6g protein & 15g carb Soybeans 1/2 c 14g complete protein & 8.5g carb [place] milk, unsweetened 8 oz 1g protein & 2g carb Soy milk 8 oz 3.5g protein & 1.6g carb Tofu 1/2 cup 10g protein & 2.3g carb Peanut butter, natural 2 Tbsp 7-8g protein & 4g net carbs, 190 calories PB2 powder 2 Tbsp 6g protein & 5g carb Nuts and Seeds per oz Almonds - 5.9g protein & 6.1g carb [place] Nuts - 4.0g protein & 3.4g carb [...] Seeds - 6.9g protein & 5g carb Stevens Seeds - 5.8g protein & 5.6g carb Walnuts - 4.3g protein & 3.8g carb Edamame Beans (soybean) snack 1 pack 11 gm complete protein 2 carb 5 (FIVE) gram carb vegetable options 1 cup raw OR cup cooked: Asparagus Hernandez sprouts Beets Broccoli Brussel sprouts Cabbage Carrots Cauliflower Celery [place] Eggplant Green beans Lettuce Peppers Snap peas [...] High Protein Snack Ideas 1. Jerky 2. [place] mix without dried fruit 3. [place] roll-ups 4. Bahamian yogurt 5. Veggies and yogurt dip 6. Tuna 7. Hard-boiled eggs 8. Peanut butter with celery 9. Cheese slices/ Cheese Stick 10. Handful of almonds, peanuts or walnuts 11. Cottage Cheese 12. Beef sticks 13. Protein bars 14. Canned [place] 15. Pumpkin seeds 16. Nut butter 17. Protein shake or protein bar 18. Avocado and chicken salad 19. Egg muffins 20. Leftover protein or lunch meat 21. 1/2 c blended cottage cheese or Bahamian yogurt with dry ranch/Mrs. Dash/herb seasoning mix [...] are economical and optimized for taste by I[employer] - they are designed to make you [...] Likely WEIGHT LOSS documented in this encounter [facility] 12-01-2024 Discharge summary Note Date/Time December 01, 2024 2:35p [facility] Physical Therapy Health[address] [place] [address] / REHABILITATION SERVICES DISCHARGE SUMMARY MR#: [id number] Acct: [id number] Name: DO OLSON Rep #: [id number] : 1980 44 From: Harrison Smith PT, ATC Referring Dr.: Dr. Daryl Peralta MD Statu s: REG RCR Insurance: [employer] SELF PAY INSURANCE Patient Information Patient Information: [...] KYRA Padgett; Dr. Daryl Peralta MD ~ [facility] Signed [facility] Work Phone: 1(445) 672-893007-07-2025 Discharge summary [facility] Physical Therapy Health[address] [place] [id number] / REHABILITATION SERVICES DISCHARGE SUMMARY MR#: [id number] Acct: [id number] Name: DO OLSON Rep #: [id number] : 1980 44 From: Harrison Smith PT, ATC Referring Dr.: Dr. Daryl Peralta MD Statu s: REG RCR Insurance: [employer] SELF PAY INSURANCE Patient Information Patient Information: [...] KYRA Padgett; Dr. Daryl Peralta MD ~ [facility] Signed [facility]05-02-2025 Evaluation note* Diagnosis Onset Date Resolution Status Admit Date Left carpal tunnel syndrome acute September 26, 2024 8:47am [facility] Work Phone: 1(920) 911-171605-01-2025 Instructions* Patient Instructions* Robyn Warner APRN.HEAD SHIPPER - 09/25/2024 3:47 PM EDT - Whole [...] oz is 28 gm protein Beef, Chicken, [place], Pork, Eli 1 oz 7g Fish, Tuna [...] (not a meal replacement) Protein AND carbs Beef/[place] Jerky 1 oz dried 10-15g protein - [...] 8 oz -13g protein & 6g car Bahamian yogurt Full Fat Bahamian Yogurt 1 cup - 20.4g protein & 9.1g carb 2% Bahamian Yogurt 1 cup - 22.7g protein & 9.1g carb 0% (fat-free) Bahamian Yogurt - 1 cup 24g protein & 9.3g carb Aldi Protein Bahamian yogurt single svg - 13/g15g protein & 7g carb Chobani Zero Sugar single svg: - 12g protein & 5g carb Dannon Bahamian Light + Fit 1 single svg - 12g protein & 9g carb Oikos Pro single svg - 20g protein & 8g carb Oikos Triple Zero Bahamian Nonfat Yogurt 1 single svg - 15g protein & 7g carb :ratio, KETO Friendly Dairy Snack 1 single svg - 15g protein & 2g carb :ratio Protein 1 single svg - 25g protein & 8g carb Two Good Lowfat Bahamian Yogurt, [place], Lower Sugar - 12g protein & 2g carb Yoplait Protein 1 single svg 15g protein & 5g carb Dairy Free - [place] unsweetened Bahamian almond/soy 15g protein & 3g carb Dairy [...] Cream Cheese 1.7g protein & 1.2g carb BBE whipped Bahamian cream cheese (WM) 2 T 3g protein 2g carb Feta 4g protein & 1.2g carb Mozzarella 6.3g protein & 0.6g carb Parmesan 10g protein & 0.9g carb American 7.6g protein & 1.5g carb Cottage Cheese 1/2 c Breakstone 2% 13g protein 7g carb Nandini 2% 13g protein 5 g carb Good Culture 2% 14g protein 3g carb Patel s Low Fat 12g protein & 4g carb Legumes Lentils cup 9g protein & 20g carb Mcdonald beans cup 7g protein & 20g carb Kidney, Black, [place], Cannellini beans cup 8g protein & 20g carb Chickpeas 1/2 c 6g protein & 15g carb Soybeans 1/2 c 14g complete protein & 8.5g carb [place] milk, unsweetened 8 oz 1g protein & 2g carb Soy milk 8 oz 3.5g protein & 1.6g carb Tofu 1/2 cup 10g protein & 2.3g carb Peanut butter, natural 2 Tbsp 7-8g protein & 4g net carbs, 190 calories PB2 powder 2 Tbsp 6g protein & 5g carb Nuts and Seeds per oz Almonds - 5.9g protein & 6.1g carb Branchland Nuts - 4.0g protein & 3.4g carb [...] Seeds - 6.9g protein & 5g carb Stevens Seeds - 5.8g protein & 5.6g carb Walnuts - 4.3g protein & 3.8g carb Edamame Beans (soybean) snack 1 pack 11 gm complete protein 2 carb 5 (FIVE) gram carb vegetable options 1 cup raw OR cup cooked: Asparagus Hernandez sprouts Beets Broccoli Brussel sprouts Cabbage Carrots Cauliflower Celery [place] Eggplant Green beans Lettuce Peppers Snap peas [...] High Protein Snack Ideas 1. Jerky 2. [place] mix without dried fruit 3. [place] roll-ups 4. Bahamian yogurt 5. Veggies and yogurt dip 6. Tuna 7. Hard-boiled eggs 8. Peanut butter with celery 9. Cheese slices/ Cheese Stick 10. Handful of almonds, peanuts or walnuts 11. Cottage Cheese 12. Beef sticks 13. Protein bars 14. Canned [place] 15. Pumpkin seeds 16. Nut butter 17. Protein shake or protein bar 18. Avocado and chicken salad 19. Egg muffins 20. Leftover protein or lunch meat 21. 1/2 c blended cottage cheese or Bahamian yogurt with dry ranch/Mrs. Dash/herb seasoning mix [...] are economical and optimized for taste by food Healthify - they are designed to make you [...] inflammation, Likely WEIGHT LOSS [facility] History of Present illness Narrative* Robyn [...] promoting medications: None Previous Diet (initial appointment): 629- - 30 gm protein shake or granola or fruit with coffee with with flavoring syrup and sweetened creamer. 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 No distress. Results: recent labs reviewed with the patient. Outside labs: 12/27/2023 [facility] CBC WNL; CMP WNL; Hgba1c [...] mg daily 3. Stress incontinence - ICD9: LAP7429, ICD10: N39.3 - Whole food balanced protein [...] that continued use is off label for long lines operator management of weight control. The patient [...] Level: 4 - Moderate [facility]25 NoteHNO ID: [id number] Author: ROBYN WARNER APRN.CNP Service: ? Author [...] and granola S - none D - 6179-8496 protein and veg and small carb - potato/pasta/corn/rice No dessert S - rare - popcorn or ice cream Fluids: water Bedtime - 3387-5417 Eating Disorder binge eating Dietary changes: B [...] kg/m? Physical Exam Constitu (more content not included)...[facility]03-10-2025 Evaluation note* Diagnosis Onset Date Resolution Status Admit Date Right hamstring injury acute Ma [facility] 2024 1:43pm Right hamstring injury acute Ma [facility] 2024 3:21pm Tear of right hamstring acute M [facility] 2024 3:21pm [facility] Work Phone: 1(192) 639-113603-10-2025 Evaluation note* Diagnosis Onset Date Resolution Status Admit Date Right hamstring injury acute Ma [facility] 2024 1:43pm Right hamstring injury acute Ma [facility] 2024 3:21pm Tear of right hamstring acute M [facility] 2024 3:21pm Left carpal tunnel syndrome acute September 26, 2024 8:47am [facility] Work Phone: 1(271) 533-730102-06-2025 Instructions* Patient Instructions* Robyn Warner APRN.HEAD SHIPPER - 07/03/2024 3:11 PM EST The Role of Exercise in Weight Management No one can deny the psychological and physical benefits of exercise. Regular physical exercise aidsin stress reduction, blood sugar control, cholesterol reduction, and improved sleep. It s also beneficial for weight control. both aerobic and strength training is beneficial for weight control. The ACSM ([employer]) advises 200-300 minutes [...] is beneficial for weight control. The ACSM ([employer]) advises 200-300 minutes of moderate-intensity exercise to lose weight and sustain the loss.Moderate-intensity exercises include brisk walking, jogging, using a rowing machine, or doing a 50-60 minute dance class. 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 Stress incontinence - ICD9: [id number], ICD10: N39.3 - Whole food balanced protein [...] Level: 4 - Moderate documented in [facility] encounterH[facility]02-[facility]-2025 NoteHNO ID: [id number] Author: ROBYN WARNER APRN.CNP Service: ? Author Type: Nurse Practitioner Type: Progress Notes Filed: 07/03/2024 20:40 Note Text: Some documentation from previous visit of 04/09/2024 was copied and pasted, documentation has been reviewed and edited as necessary for today's visit. 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 Resting HR 86 Physical Exam Constitutional: She appears healthy. No distress. Results: recent labs reviewed with the patient. Outside labs: 12/27/2023 [facility] CBC WNL; CMP WNL; Hgba1c 5.0; Total Cho (more content not included)...[facility]01-14-2025 [facility] Medical Records Department [address] [place] [id number] History Physical Exam 06/10/24 0717 MR#: [id number] Acct: [id number] Name: DO OLSON Rep #: [id number] : 1980 43 From: Eulogio Mello DO PCP: KYRA Riddle Status:[facility] Location: [place] [address] History and Physical Date of Admission: 06/10/24 [facility] [address] [place] [address] [address] [place] [address] OFFICE VISIT Date of Service: 03/14/24 MR#: [id number] Acct: [id number] Name: DO OLSON Rep #: [id number] : 1980 Provider: Dr. Eulogio Mello DO Age/Sex: 43/F Location: [facility] Status: Signed Intake Vital Signs 12/11/2405:35 Height 5 ft 7 in Intake Visit Reasons: BL HANDS Accompanied by: Self Is patient in pain?: No Allergies No Known Allergies Allergy (Verified 03/14/24 09:19) Medications ???Medication ???Instructions ???Recorded ???Confirmed ???Type Lactobacillus 25 billion cap PO 11/29/21 03/14/24 History cell-Bifido 25 billion [id number] capsule (Women's Probiotic) fexofenadine 180 mg tablet [...] Bilateral carpal tunnel syndrome (more content not included)...[facility]11-19-2024 Telephone encounter Note* Telephone Encounter - Liliam Wong RN - 04/15/2024 11:33 AM EST Requested Prescriptions Pending Prescriptions Disp Refills fluconazole (DIFLUCAN) 150 mg tablet 1 tablet 1 Sig: Take 1 tablet by mouth one time only for 1 dose. Recent Office Visits - This Specialty 04/09/2024 Osteoarthritis of left knee, unspecified osteoarthritis type OB/Gynecology Warner, Robyn, FAMILY LAW MEDIATOR.HEAD SHIPPER 02/13/2024 Osteoarthritis of left knee, unspecified osteoarthritis type OB/Gynecology Warner, Robyn, FAMILY LAW MEDIATOR.HEAD SHIPPER 12/26/2023 Osteoarthritis of left knee, unspecified osteoarthritis type OB/Gynecology Warner, Robyn, FAMILY LAW MEDIATOR.HEAD SHIPPER Liliam Wong RN [facility]11-19-2024 Miscellaneous Notes* Telephone Encounter - Liliam Wong RN - 04/15/2024 11:33 AM EST Requested Prescriptions Pending Prescriptions Disp Refills fluconazole (DIFLUCAN) 150 mg tablet 1 tablet 1 Sig: Take 1 tablet by mouth one time only for 1 dose. Recent Office Visits - This Specialty 04/09/2024 Osteoarthritis of left knee, unspecified osteoarthritis type OB/Gynecology Warner, Robyn, FAMILY LAW MEDIATOR.HEAD SHIPPER 02/13/2024 Osteoarthritis of left knee, unspecified osteoarthritis type OB/Gynecology Warner, Robyn, FAMILY LAW MEDIATOR.HEAD SHIPPER 12/26/2023 Osteoarthritis of left knee, unspecified osteoarthritis type OB/Gynecology Warner, Robyn, FAMILY LAW MEDIATOR.HEAD SHIPPER Liliam Wong RN documented in this encounterH[facility]11-[facility]24 Telephone encounter Note * Telephone Encounter - Linwood Wiseman RN - 04/15/2024 8:10 AM EST Last OV 04/09/2024. Requested Prescriptions Pending Prescriptions Disp Refills clotrimazole-betamethasone (LOTRISONE) cream 15 g 0 Sig: Apply 1 application to affected area two times a day. Linwood Wiseman RN [facility]11-19-2024 Miscellaneous Notes* Telephone Encounter - Linwood Wiseman RN - 04/15/2024 8:10 AM EST Last OV 04/09/2024. Requested Prescriptions Pending Prescriptions Disp Refills clotrimazole-betamethasone (LOTRISONE) cream 15 g 0 Sig: Apply 1 application to affected area two times a day. Linwood Wiseman RN documented in this encounterHarrison [facility]11-13-2024 Instructions* Patient Instructions* Robyn Warner APRN.HEAD SHIPPER - 04/09/2024 12:18 PM EST Try Premier [...] oz is 28 gm protein Beef, Chicken, [place], Pork, Eli 1 oz 7g Fish, Tuna [...] protein & 2 carb Protein AND carbs Beef/[place] Jerky 1 oz dried 10-15g protein - check carb count, can be high if sugar added Slim Devante - 6 gm protein and 4 net carb Great Value original turkey sausage sticks - 7 gm protein and 2 gm carb [employer] [facility] Original smoked sausage sticks - 8 gm protein and 0 carb Imitation Crab Meat 1 oz - 2g protein & 4g carb Milk, skim 2% or 1% 8 oz - 8g protein & 12g carb Bahamian yogurt Full Fat Bahamian Yogurt 1 cup - 20.4g protein & 9.1g carb 2% Bahamian Yogurt 1 cup - 22.7g protein & 9.1g carb 0% (fat-free) Bahamian Yogurt - 1 cup 24g protein & 9.3g carb Aldi Protein Bahamian yogurt single svg - 15g protein & 7g carb Chobani Zero Sugar single svg: - 12g protein & 5g carb Dannon Bahamian Light + Fit 1 single svg - 12g protein & 9g carb Oikos Pro single svg - 20g protein & 8g carb Oikos Triple Zero Bahamian Nonfat Yogurt 1 single svg - 15g protein & 7g carb :ratio, KETO Friendly Dairy Snack 1 single svg - 15g protein & 2g carb :ratio Protein 1 single svg - 25g protein & 8g carb Two Good Lowfat Bahamian Yogurt, [place], Lower Sugar - 12g protein & 2g carb Yoplait Protein 1 single svg 15gm protein & 5gm carb Dairy Free - [place] unsweetened Bahamian almond/soy 15 gm protein & 3 gm carb Dairy Free - True Goodness by [facility] coconut-based yogurt alternative 1 gm protein 1 gm net carb 180 phil Cheese each oz Brie 5.9g protein & 0.1g carb Cheddar 7g protein & 0.4g carb Delonte 6.7g protein & 0.7g carb Cream Cheese 1.7g protein & 1.2g carb Feta 4g protein & 1.2g carb Mozzarella 6.3g protein & 0.6g carb Parmesan 10g protein & 0.9g carb American 7.6g protein & 1.5g carb Cottage Cheese 1/2 c Breakstone 2% 13g protein 7g carb Nandini 2% 13g protein 5 g carb Good Culture 2% 14g protein 3g carb Patel s Low Fat 12g protein & 4g carb Legumes Lentils cup 9g protein & 20g carb Mcdonald beans cup 7g protein & 20g carb Kidney, Black, [place], Cannellini beans cup 8g protein & 20g carb Soybeans 1/2 c 14g complete protein & 8.5g carb [place] milk, unsweetened 8 oz 1g protein & 2g carb Soy milk 8 oz 3.5g protein & 1.6g carb Tofu 1/2 cup 10g protein & 2.3g carb Peanut butter, natural 2 Tbsp 7-8g protein & 4g net carbs, 190 calories PB2 powder 2 Tbsp 6g protein & 5g carb Nuts and Seeds per oz Almonds - 5.9g protein & 6.1g carb [place] Nuts - 4.0g protein & 3.4g carb [...] Seeds - 6.9g protein & 5g carb Stevens Seeds - 5.8g protein & 5.6g carb Walnuts - 4.3g protein & 3.8g carb Edamame Beans (soybean) snack 1 pack 11 gm complete protein 2 carb 5 (FIVE) gram carb vegetable options 1 cup raw OR cup cooked: Asparagus Hernandez sprouts Beets Broccoli Brussel sprouts Cabbage Carrots Cauliflower Celery [place] Eggplant Green beans Lettuce Peppers Snap peas [...] High Protein Snack Ideas 1. Jerky 2. [place] mix without dried fruit 3. [place] roll-ups 4. Bahamian yogurt 5. Veggies and yogurt dip 6. Tuna 7. Hard-boiled eggs 8. Peanut butter with celery 9. Cheese slices/ Cheese Stick 10. Handful of almonds, peanuts or walnuts 11. Cottage Cheese 12. Beef sticks 13. Protein bars 14. Canned [place]el [place] 15. Pumpkin seeds 16. Nut butter 17. Protein shakes 18. Avocado and chicken salad 19. Egg muffins 20. Leftover protein or lunch meat 21. 1/2 c blended cottage cheese or Bahamian yogurt with dry ranch/Mrs. 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 No distress. Results: recent labs reviewed with the patient. Outside labs: 12/27/2023 [facility] CBC WNL; CMP WNL; Hgba1c [...] mg daily 3. Stress incontinence - ICD9: [id number], ICD10: N39.3 - Whole food balanced protein [...] Level: 4 - Moderate documented in this encounterHarrison [facility] Hospital11-13-2024 NoteHNO ID: [id number] Author: ROBYN WARNER APRN.ANMOL Service: ? 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 Physical Exam Constitutional: She appears healthy. No distress. Results: recent labs reviewed with the patient. Outside labs: 12/27/2023 [facility] CBC WNL; CMP WNL; Hgba1c 5.0; Total Chol 159: HDL 75: LDL 74: TG 50:; TSH 0.52 9 (more content not included)...[facility]09-18-2024 Instructions* Patient Instructions* Robyn Warner APRN.HEAD SHIPPER - 02/13/2024 8:11 AM EDT - Eat [...] oz is 28 gm protein Beef, Chicken, [place], Pork, Eli 1 oz 7g Fish, Tuna [...] protein & 2 carb Protein AND carbs Beef/[place] Jerky 1 oz dried 10-15g protein - check carb count, can be high if sugar added Slim Devante - 6 gm protein and 4 net carb Great Value original turkey sausage sticks - 7 gm protein and 2 gm carb Moncia & Hung (at [employer]) Original smoked sausage sticks - 8 gm protein and 0 carb Imitation Crab Meat 1 oz - 2g protein & 4g carb Milk, skim 2% or 1% 8 oz - 8g protein & 12g carb Bahamian yogurt Full Fat Bahamian Yogurt 1 cup - 20.4g protein & 9.1g carb 2% Bahamian Yogurt 1 cup - 22.7g protein & 9.1g carb 0% (fat-free) Bahamian Yogurt - 1 cup 24g protein & 9.3g carb Aldi Protein Bahamian yogurt single svg - 15g protein & 7g carb Chobani Zero Sugar single svg: - 11g protein & 5g carb Dannon Light + Fit 1 single svg - 12g protein & 9g carb Oikos Pro single svg - 20g protein & 8g carb Oikos Triple Zero Bahamian Nonfat Yogurt 1 single svg - 15g protein & 7g carb :ratio, KETO Friendly Dairy Snack 1 single svg - 15g protein & 2g carb :ratio Protein 1 single svg - 25g protein & 8g carb Two Good Lowfat Bahamian Yogurt, [place], Lower Sugar - 12g protein & 2g carb Yoplait Protein 1 single svg 15gm protein & 5gm carb Dairy Free - [place] 15 gm protein & 4 gm carb Cheese each oz Brie 5.9g protein & 0.1g carb Cheddar Cheese 7g protein & 0.4g carb Mozzarella Cheese 6.3g protein & 0.6g carb Delonte Cheese 6.7g protein & 0.7g carb Parmesan Cheese 10g protein & 0.9g carb Cream Cheese 1.7g protein & 1.2g carb Feta 4g protein & 1.2g carb American Cheese 7.6g protein & 1.5g carb Patel s Low Fat Cottage Cheese 1/2cup 12g protein & 4g carb Legumes Lentils cup 9g protein & 20g carb Mcdonald beans cup 7g protein & 20g carb Kidney, Black, Billingsley, Cannellini beans cup 8g protein & 20g carb Soybeans 1/2 c 14g complete protein & 8.5g carb [place] milk, unsweetened 8 oz 1g protein & 2g carb Soy milk 8 oz 3.5g protein & 1.6g carb Tofu 1/2 cup 10g protein & 2.3g carb Peanut butter, natural 2 Tbsp 7-8g protein & 4g net carbs, 190 calories PB2 powder 2 Tbsp 6g protein & 5g carb Nuts and Seeds per oz Almonds - 5.9g protein & 6.1g carb [place] Nuts - 4.0g protein & 3.4g carb [...] Seeds - 6.9g protein & 5g carb Stevens Seeds - 5.8g protein & 5.6g carb [...] Broccoli Brussel sprouts Cabbage Carrots Cauliflower Celery [place] Eggplant Green beans Lettuce Peppers Snap peas [...] High Protein Snack Ideas 1. Jerky 2. [place] mix without dried fruit 3. [place] roll-ups 4. Bahamian yogurt 5. Veggies and yogurt dip 6. Tuna 7. Hard-boiled eggs 8. Peanut butter with celery 9. Cheese slices/ Cheese Stick 10. Handful of almonds, peanuts or walnuts 11. Cottage Cheese 12. Beef sticks 13. Protein bars 14. Canned [place] 15. Pumpkin seeds 16. Nut butter 17. [...] crushed nuts and freeze documented in this encounterHarrison [facility] Hospital09-18-[facility]24 History of Present illness Narrative* Robyn [...] and granola S - none D - 1584-0519 protein and veg and small carb - potato/pasta/corn/rice No dessert S - rare - popcorn or ice cream Fluids: water Bedtime - 1915-6287 Eating Disorder binge eating Dietary changes: B [...] reviewed with the patient. Outside labs: 12/27/2023 [facility] CBC WNL; CMP WNL; Hgba1c [...] mg daily 3. Stress incontinence - ICD9: [id number], ICD10: N39.3 - benefits of weight loss [...] Level: 4 - Moderate documented in this encounterHarrison [facility] Hospital09-18-2024 NoteHNO ID: [id number] Author: ROBYN WARNER APRN.HEAD SHIPPER Service: ? Author Type: Nurse Practitioner Type: [...] and granola S - none D - 6348-7032 protein and veg and small carb - potato/pasta/corn/rice No dessert S - rare - popcorn or ice cream Fluids: water Bedtime - 7776-0695 Eating Disorder binge eating Dietary changes: B [...] reviewed with the patient. Outside labs: 12/27/2023 [facility] CBC WNL; CMP WNL; Hgba1c 5.0; Total Chol 159: HDL 75: LDL 74: TG 50:; TSH 0.52; 01/2023 - CBC, lipids, CBC WNL 09/26/2023 Hgba1c 5.0 Anti-Obesity Medications >Phentermine: No uncontrolled HTN, No CVD Hx or hx of seizure disorder. No MAO (more content notincluded)...[facility]09-10-2024 Note* Letter - Coordinator, Mammography - 02/05/2024 6:25 AM EDT February 06, 2024 PID: [id number] Do Olson [address] [place] [address] Dear Ms. Olson, We are pleased to [...] report will be [facility] as part of your permanent medical record and are available for your continuing care. Thank you for allowing us to help in meeting your health care needs. Sincerely, Dr. Valdovinos Interpreting Radiologist [facility] (Normal over 40) [facility]09-10-[facility] Miscellaneous Notes* Letter - Coordinator, Mammography - 02/05/2024 6:25 AM EDT February 06, 2024 PID: [id number] Do Olson [address] [place] [address] Dear Ms. Olson, We are pleased to [...] report will be [facility] at [facility] as part of your permanent medical record and are available for your continuing care. Thank you for allowing us to help in meeting your health care needs. Sincerely, Dr. Valdovinos Interpreting Radiologist [facility] (Normal over 40) documented in this encounterHarrison Community Hospital09-06-2024 History of Present illness Narrative* Carolin [...] PATIENT PRESENTS WITH AN IMPLANTABLE OR ATTACHED LAWN CARE PROFESSIONAL: No RADIOLOGY DEPARTMENT: Mammography PERIPHERAL IV DATA: Not applicable SIGNED BY: RT Sobeida(R) February 01, 2024 12:52 PM documented in this encounterHarrison [facility] Hospital09-06-2024 NoteHNO ID: [id number] Author: CAROLIN PANDA RT(R) Service: ? Author [...] PATIENT PRESENTS WITH AN IMPLANTABLE OR ATTACHED LAWN CARE PROFESSIONAL: No RADIOLOGY DEPARTMENT: Mammography PERIPHERAL IV DATA: Not applicable SIGNED BY: RT Sobeida(R) February 01, 2024 12:52 [facility] Telephone encounter Note* Telephone Encounter - Liliam Wong RN - 01/21/2024 9:15 AM EDT Please file new Mamm with RJ order. Unable to link the order placed on 11/23/23. Liliam Wong RN [facility]08-26-[facility] Miscellaneous Notes* Telephone Encounter - Liliam Wong RN - 01/21/2024 9:15 AM EDT Please file new Mamm with RJ order. Unable to link the order placed on 11/23/23. Liliam Wong RN * Telephone Encounter - OmegaVeronica scherer Michaelo Tech - 01/21/2024 7:54 AM EDT Could we have a mammorgram order? Pt has appt with us 01/31, Thanks a million documented in this encounterHarrison [facility] Hospital08-26-2024 Telephone encounter Note * Telephone Encounter - OmegaVeronica goldstein Mammo Tech - 01/21/2024 7:54 AM EDT Could we have a mammorgram order? Pt has appt with us 01/31, Thanks a million [facility]20[facility] History of Present illness Narrative* Robyn Warner APRN.HEAD SHIPPER - 12/25/2023 12:21 PM EDT Images from [...] lbs WEIGHT GRAPH: Diet/Nutrition overview: Awake - B - 629- - 30 [...] and granola S - none D - 7973-2483 protein and veg and small carb - potato/pasta/corn/rice No dessert S - rare - popcorn or ice cream Fluids: water Bedtime - 2961-7178 Quality of diet: 24hr recall suggests healthy diet. Characterization of diet:Structured and cravings. Station Helper of impaired eating habits:Prior to tirzepatide - [...] Onset Hypertension Mother Hypertension Father Heart Father [place] Cancer Sister melanoma Heart Maternal Grandmother COPD [...] 110/62 Pulse 73 Ht 170.2 cm (5' 7") Wt 72.9 kg (160 lb 12.8 oz) [...] mg daily 3. Stress incontinence - ICD9: [id number], ICD10: N39.3 - benefits of weight loss [...] CMP, Lipids, TSH and HgbA1c faxed to [facility] -- We discussed several strategies [...] resistancetraining and cardiovascular exercise is the best long lines operator plan. An overall goal of 150-200 minutesper [...] which included preparing to see the patient, huyu-os-bwkn patient care, completing clinical documentation, obtaining and/or reviewing separately obtained history, performing a medically appropriate examination, counseling and educating the pat ient/family/caregiver, and ordering medications, tests, or procedures. documented in [place] encounterLisa [place] [id number] Instructions* Patient Instructions* Robyn Warner APRN.HEAD SHIPPER - 12/25/2023 12:21 PM EDT Images from [...] slots. [facility] as you will not be scheduled appropriately and will need to be rescheduled. We appreciate that you have entrusted us with your health and know that we are committed to this process with you. Sincerely, Evelin Rm MD, SAMUEL GEE & Robyn Warner CNP Advanced Education from the Obesity Medicine Association Obesity Obesity is a disease that affects nearly one-third of the adult [place] population (approximately 60 million). The number of overweight and obese Americans has continued to increase since 1960, a trend that is not slowing down. Today, 64.5 percent of adult Americans (about 127 million) are categorized as being overweight or obese. Each year, obesity causes at least 300,000 excess deaths in the [place] and healthcare costs of [place] adults with obesity amount to approximately $100 [...] the gallbladder, breast, uterus, cervix, or ovaries https://my.[facility].org/health/diseases/96958-sptrwk-zennglidud-pzdcpvt-n ducation - Eat primarily whole foods. Limit [...] and granola S - none D - 7587-3889 protein and veg and small carb - potato/pasta/corn/rice No dessert S - rare - popcorn or ice cream - if you eat, add protein Protein - no carbs Egg 1 large - 6g Egg white 1 large 3.6g 3 oz is approximately the size of a deck of cards and equals 21 g protein so 4 oz is 28 gm protein Beef, Chicken, [place], Pork, Eli 1 oz 7g Fish, Tuna Fish 1 oz 7g (Starkist tuna packet 2.6 oz 17 gm protein) Seafood (Crabmeat, Shrimp, Lobster) 1 oz 6g Protein shakes (read labels) Premier Protein or generic [employer] Equate, Lisajer High Performance- 30g protein & 1g carb [...] protein & 2 carb Protein AND carbs Beef/[place] Jerky 1 oz dried 10-15g protein - [...] oz - 8g protein & 12g carb Bahamian yogurt Full Fat Bahamian Yogurt 1 cup - 20.4g protein & 9.1g carb 2% Bahamian Yogurt 1 cup - 22.7g protein & 9.1g carb 0% (fat-free) Bahamian Yogurt - 1 cup 24g protein & 9.3g carb Aldi Protein Bahamian yogurt single svg - 15g protein & 7g carb Chobani Zero Sugar single svg: - 11g protein & 5g carb Dannon Light + Fit 1 single svg - 12g protein & 9g carb Oikos Pro single svg - 20g protein & 8g carb Oikos Triple Zero Bahamian Nonfat Yogurt 1 single svg - 15g protein & 7g carb :ratio, KETO Friendly Dairy Snack 1 single svg - 15g protein & 2g carb :ratio Protein 1 single svg - 25g protein & 8g carb Two Good Lowfat Bahamian Yogurt, [place], Lower Sugar - 12g protein & 2g [...] carb Feta 4g protein & 1.2g carb American Cheese 7.6g protein & 1.5g carb Patel s Low Fat Cottage Cheese 1/2cup 12g protein & 4g carb Legumes Lentils cup 9g protein & 20g carb Mcdonald beans cup 7g protein & 20g carb Kidney, Black, [place], Cannellini beans cup 8g protein & 20g carb Soybeans 1/2 c 14g complete protein & 8.5g carb [place] milk, unsweetened 8 oz 1g protein & 2g carb Soy milk 8 oz 3.5g protein & 1.6g carb Tofu 1/2 cup 10g protein & 2.3g carb Peanut butter, natural 2 Tbsp 7-8g protein & 4g net carbs, 190 calories PB2 powder 2 Tbsp 6g protein & 5g carb Nuts and Seeds per oz Almonds - 5.9g protein & 6.1g carb [place] Nuts - 4.0g protein & 3.4g carb [...] Seeds - 6.9g protein & 5g carb Stevens Seeds - 5.8g protein & 5.6g carb [...] Broccoli Brussel sprouts Cabbage Carrots Cauliflower Celery [place] Eggplant Green beans Lettuce Peppers Snap peas [...] High Protein Snack Ideas 1. Jerky 2. [place] mix without dried fruit 3. [place] roll-ups 4. Bahamian yogurt 5. Veggies and yogurt dip 6. Tuna 7. Hard-boiled eggs 8. Peanut butter with celery 9. Cheese slices/ Cheese Stick 10. Handful of almonds, peanuts or walnuts 11. Cottage Cheese 12. Beef sticks 13. Protein bars 14. Canned [place] 15. Pumpkin seeds 16. Nut butter 17. [...] understood. Topiramate affects body mass index, fasting iwwhvok-ti-etxzgkn ratio, and serum leptin and cortisol levels. [...] at or call local emergency services at 715. What other information should I know? Keep all appointments with your doctor and the laboratory. Do not let anyone else take your medication. Topiramate use needs to be monitored closely. Prescriptions may be refilled only a limited number of times. Keep a written list of all of your prescription and nonprescription (hbcs-qeq-tedeplh) medicines, in addition to vitamins, minerals, or [...] for a missed one. Sources Pubmed Health: http://www.ncbi.nlm.nih.gov/pubmedhealth/JRX7706149/ Drugs.com http://www.drugs.com/pro/topiramate.html METFORMIN Dosing -- Begin Metformin [...] (nih.gov) Is metformin a wonder drug? - [facility] Common side effects of this medication [...] FOR YOUR WEIGHT LOSS PLAN Per updated [place] state rules, initially, a one month supply [...] aware of the following statements per the [facility] pharmacy board rules. 1. Timely [...] at or call local emergency services at 008. What other information should I know? Keep all appointments with your doctor and the laboratory. Do not let anyone else take your medication. Phentermine is a controlled substance. It is FDA approved for up to 3 months. Prescriptions may be refilled only a limited number of times. Keep a written list of all of your prescription and nonprescription (lbhj-djx-pxrutkz) medicines, in addition to vitamins, minerals, or [...] make up for a missed one. Sources [facility] Consumer Medication Info: http://www.ncbi.nlm.nih.gov/pubmedhealth/ETM8984901/ AMA patient handouts: http://www.amaassn.org/ama1/pub/upload/mm/433/phrxsurgery.pdf Drugs.com: http://www.drugs.com/pro/phentermine.html I [...] water to avoid this. documented in this encounterHarrison [facility] Hospital06-28-2024 Instructions* Patient Instructions* Robyn Warner APRN.HEAD SHIPPER - 11/23/2023 7:29 AM EDT How To [...] agents from your environment. 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 Added automatically from request for surgery [id number] Last Assessment & Plan: fib Gestational diabetes PVC (premature ventricular contraction) PAST SURGICAL HISTORY Procedure Laterality Date ESSURE EXT HYSTERECTOMY,W/PARTIAL VAGINECTO 2016 Ovaries bilaterally intact EXTRACTION, ERUPTED TOOTH OR EXPOSED ROOT (ELEVATION AND/OR FORCEPS REMOVAL) wisdom teeth IMPLANTS breast FAMILY HISTORY Problem Relation Age of Onset Hypertension Mother Hypertension Father Heart Father [place] Cancer Sister melanoma Heart Maternal Grandmother COPD [...] medication updated:Yes EXAM: BP 112/62 Ht 5' 7" (1.70m) Wt 161 lb (73.0kg) LMP 02/25/2017 [...] external genitalia normal, normal Bartholin's glands, urethra, [place]'s glands, no vulvar lesions, physiologic discharge present, [...] exams reviewed. 2. Stress incontinence - ICD9: [id number], ICD10: N39.3 - Discussed Kegel exercises and given written instruction. 3. History of obesity - ICD9: V12.29, ICD10: Z86.39 - Class 1 obesity with BMI 33.4 - 56 lb weight loss with Mounjaro prescribed by PCP, paying frp-qw-obtfwe. Questions about maintenance medications that are less expensive 4) Contraception: hysterectomy. . 5) STD screening: Declined STD check. 6) Follow up one year or sooner as needed Robyn Warner APRN.CNP documented in this encounterHarrison [facility] Hospital06-19-2024 Telephone encounter Note * Telephone Encounter - Carolyn Dumas APRN.CNP - 11/14/2023 9:34 AM EDT Refill sent. Recommend appointment if itching persists. Carolyn Dumas APRN.CNP [facility]06-19-2024 Miscellaneous Notes* Telephone Encounter - Carolyn Dumas APRN.CNP - 11/14/2023 9:34 AM EDT Refill sent. Recommend appointment if itching persists. Carolyn Dumas APRN.CNP documented in this encounterHarrison Community Hospital05-07-2024 Instructions* Patient Instructions* Robyn Warner APRN.CNP [...] health-related concerns, consult your physician or other health-personal care worker. Being sexually active contributes to physical and [...] Diana Davey, PhD, and Eulogio Smith, PhD ([employer], 2009) Two sex therapists give guidance on evaluating your sexual history, exploring your body through touch, overcoming fear of orgasm, exploring ways to trigger orgasm, and more Reclaiming Desire: [address] [place] to Finding Your Lost Libido Jovanny Vivar MD, and Cookie Marie, PhD (Renu, 2004) Practical advice for the woman who has lost her sex drive and wants to find it again. When Sex Isn t Good: Stories & Solutions of Women With Sexual Dysfunction April Nava EdD, and Debra Vivar (Yobani Vivar MD, biomedical field service engineer) (iUniverse, 2007) A profile of a variety of women s sexual health issues written so that readers can learn from the experiences of others Below are other useful resources. The first few list reputable websites that sell lubricants, dilators, and videos: www.Metafor Software.AudioPixels www.Admittedly.AudioPixels www.Advanced Materials Technology International.AudioPixels www.MobileWebsites.AudioPixels www.Prover Technology www.tantra.AudioPixels www.aasect.org [place] Association of Sexuality Educators, Counselors, and Therapists Nonprofit professional association of sex educators, sex counselors, and sex therapists. You can search its website for a list of therapists in your area www.Crowdparkology.AudioPixels Also lists certified sexual therapists http://isswsh.org International Society for the Study of Women s Sexual Health Professional association website featuring an extensive directory of books on female sexual health, including many for lay readers. Also provides a searchable directory of sex therapists by geographic area. Www.etouches.org [facility]borWebsite of this pioneering sexuality and research center at [facility] features collections of podcasts ( Zen99 and Conversations About Sex Research ), some of which address sex and menopause. And remember that your brain is your most powerful sexual organ. With the right attitude about yoursexuality and some responsible choices about your health, your body can give you pleasure for yearsand years. Take care of it and enjoy! Elvi perez documented in this encounterHarrison Community Hospital05-07-2024 History of Present illness Narrative* Robyn [...] PCP ordered hormone levels - 09/26/2023 labs [facility] FSH, LH, estradiol - not postmenopausal. Slightly decreased testosterone: sex-binding hormone normal. 01/2023 normal TSH. Vit D and CBC. OB History T0 L2 SAB0 IAB0 Ectopic0 Multiple0 Live Births0 Help Desk Rep History LMP: 02/25/2017, Hysterectomy Age at Menarche: Age at First : Age at Menopause: Help Desk Rep History Comments: Sexual Activity: Yes; Male; hysterectomy Contraception: Surgical PAST MEDICAL HISTORY Diagnosis Date Gestational diabetes PVC (premature ventricular contraction) PAST SURGICAL HISTORY Procedure Laterality Date ESSURE EXT HYSTERECTOMY,W/PARTIAL VAGINECTO 2016 Ovaries bilaterally intact EXTRACTION, ERUPTED TOOTH OR EXPOSED ROOT (ELEVATION AND/OR FORCEPS REMOVAL) wisdom teeth IMPLANTS breast FAMILY HISTORY Problem Relation Age of Onset Hypertension Mother Hypertension Father Heart Father [place] Cancer Sister melanoma Heart Maternal Grandmother COPD [...] CBC. - Discussed sleep hygiene. Robyn Warner APRN.HEAD SHIPPER I spent a total of 25 minutes on the date of the service which included preparing to see the patient, yltr-xb-ltyh patient care, completing clinical documentation, obtaining and/or reviewing separately obtained history, performing a medically appropriate examination, counseling and educating the pat ient/family/caregiver, independently interpreting results (not separately reported), and communicating results to the patient/family/caregiver. documented in this encounterHarrison Community Hospital08-15-2023 Miscellaneous Notes* Telephone Encounter - Meenu Plascencia LPN - 01/09/2023 7:33 AM EDT Order signed and faxed to [facility]. Meenu Plascencia LPN * Telephone Encounter - Liliam Wong RN - 01/08/2023 10:07 AM EDT [facility] radiology order on AG's desk to sign. documented in this encounterHarrison Community Hospital12-07-2022 History of Present illness Narrative* Robyn Warner APRN.ANMOL - 05/03/2022 7:22 AM EST Title 1 Tutor offered: Patient declines. Do Olson is a 41 year old female who presents for intermittent burning and itching mostly at vaginal opening for about 5 weeks. Symptoms on and off for at least a year - she self-treated for yeast. Has a bottle of Diflucan from previous historical interpreter that she uses. States had hysterectomy for [...] external genitalia normal, normal Bartholin's glands, urethra, [place]'s glands, no vulvar lesions, small amount white [...] Level: 4 - Moderate [facility] Miscellaneous Notes* Telephone Encounter - Desi [...] problems. Meenu Plascencia LPN [facility] Instructions* Patient Instructions* Robyn Warner APRN.ANMOL [...] avoid scratching at night. documented [facility] History of Present illness Narrative* Robyn [...] L2 SAB0 IAB0 Ectopic0 Multiple0 Live Births0 Help Desk Rep History LMP: 02/25/2017, Having periods Age at Menarche: Age at First : Age at Menopause: Help Desk Rep History Comments: Sexual Activity: Yes; Male; hysterectomy Contraception: Surgical PAST MEDICAL HISTORY Diagnosis Date Gestational diabetes PAST SURGICAL HISTORY Procedure Laterality Date ESSURE EXT HYSTERECTOMY,W/PARTIAL VAGINECTO 2016 Ovaries bilaterally intact EXTRACTION, ERUPTED TOOTH OR EXPOSED ROOT (ELEVATION AND/OR FORCEPS REMOVAL) wisdom teeth IMPLANTS breast FAMILY HISTORY Problem Relation Age of Onset Hypertension Mother Hypertension Father Heart Father [place] Cancer Sister melanoma Heart Maternal Grandmother COPD [...] medication updated:Yes EXAM: BP 128/70 Ht 5' 7" (1.70m) Wt 201 lb 12.8 oz (91.5kg) LMP 02/25/2017 BMI 31.60 kg/(m^2). GENERAL: pleasant, female in no apparent distress CHEST: Normal inspiratory effort ABDOMEN: soft, non-tender, and no masses PELVIC: external genitalia normal, normal Bartholin's glands, urethra, [place]'s glands, no vulvar lesions, small amount white [...] of results. Follow- up as needed. Robyn Wraner APRN.HEAD SHIPPER Medical Decision Making: Problems: Low: Acute, uncomplicated illness or injury Data: Unique test(s) ordered: 2 Medical Decision Making Level: 3 - Low documented in [facility]05[facility] History of Present illness Narrative* Shahla Castañeda MD - 10/22/2020 8:30 AM EDT POSTOPERATIVE VISIT 10/22/2020 Do Olson 1980 DOS (operation): 10/05/2020 FACILITY: [facility] PROCEDURE: Right breast open excisional biopsy BRIEF ONCOLOGIC/BREAST HISTORY: She underwent baseline screening mammogram on 08/13/2020 at the [facility] which was given a BIRADS 0 for an asymmetry in the upper right breast, posterior depth. She underwent diagnostic bilateral mammogram and targeted right breast ultrasound on 08/19/2020 at [facility] radiology which was given a BIRADS III for her mammographic asymmetry which was located atthe 2 o'clock position. There was no ultrasound correlate identified. She underwent further evaluation with bilateral breast MRI at [place] 08/24/2020 which identified a 2 x 1.1 x 1.2 cm mass at the2 o'clock position, 7 cm from the nipple and was given a BI-RADS 4A. Second look ultrasound at our [facility] revealed a 1.8 x 0.8 x 1.4 cm oval circumscribed mass at the 2:00 zone B/C position. Ultrasound-guided core needle biopsy was performed 08/27/2020. Biopsy pathology demonstrated a fibroepithelial lesion. She was treated with right breast open excisional biopsy 10/05/2020 at [facility].Surgical pathology demonstrated a fibroadenoma. At her request, a right areolar skin tag was also removed which was benign. HISTORY: Past Medical History: Diagnosis Date Abnormal mammogram Anxiety Breast pain Gestational diabetes 2011 Right shoulder pain 06/10/2015 Past Surgical History: Procedure Laterality Date BREAST BIOPSY Right 08/27/2020 BREAST MASS EXCISION Right 10/05/2020 Procedure: Right breast open excisional biopsy with intraoperative ultrasound- guided localization,;Surgeon: Shahla Castañeda MD; [facility]; Service: General Surgery COSMETIC SURGERY HYSTERECTOMY 04/2017 MD ENLARGE BREAST US BREAST BIOPSY RIGHT Right [...] questions. Shahla Castañeda MD Breast Surgical Oncology [facility] Office Office CC: CARE TEAM Patient Care Team: Ana Maria Baker MD as PCP - General (Internal Medicine) Robyn Bergeron RN as Patient Navigator documented in this [id number] Miscellaneous Notes* Assessment & Plan Note - [...] No acute complaints today documented in this [id number] History of Present illness Narrative* Ana Maria [...] Patient wasthen referred to breast clinic in [place] where Dr. Castañeda performed biopsy on 08/27/2020. [...] BIOPSY Right 08/27/2020 COSMETIC SURGERY HYSTERECTOMY 04/2017 MD ENLARGE BREAST US BREAST BIOPSY RIGHT Right [...] Weight: 85.3 kg (188 lb) Height: 5' 7" Estimated body mass index is 29.44 kg/m as calculated from the following: Height as of this encounter: 5' 7". Weight as of this encounter: 85.3 kg [...] Ana Maria Baker MD documented in this [id number] History of Present illness Narrative* Shhala Castañeda MD - 09/15/2020 8:00 AM EDT Date of Service: 09/15/20 Patient Name: Do Olson MR #: [id number] : 1980 Physicians: Ana Maria Baker MD [...] baseline screening mammogram on 08/13/2020 at the [facility] which was given a BIRADS 0 for an asymmetry in the upper right breast, posterior depth. She underwent diagnostic bilateral mammogram and targeted right breast ultrasound on 08/19/2020 at [facility] radiology which was given a BIRADS III for her mammographic asymmetry which was located atthe 2 o'clock position. There was no ultrasound correlate identified. She underwent further evaluation with bilateral breast MRI at [place] 08/24/2020 which identified a 2 x 1.1 x 1.2 cm mass at the2 o'clock position, 7 cm from the nipple and was given a BI-RADS 4A. Second look ultrasound at our [facility] revealed a 1.8 x 0.8 x 1.4 cm oval circumscribed mass at the 2:00 zone B/C position. Ultrasound-guided core needle biopsy was performed 08/27/2020. Biopsy pathology demonstrated a fibroepithelial lesion. 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 We discussed how "fibroepithelial lesion" is an umbrella term for a heterogeneous [...] further surgery or procedures. 6. We discussed [facility]'s preoperative COVID-19 testing policy. She understands [...] minutes on this encounter today which includes [id number] time with the patient, time reviewing the chart, and time spent documenting the encounter. It is always a privilege to take care of your patients. Please do not hesitate to call me with any questions. Shahla Castañeda MD Breast Surgical Oncology [facility] Office Office CC: Patient Care Team: Ana Maria Baker MD as PCP - General (Internal Medicine) Robyn Bergeron RN as Patient Navigator documented in this [id number] History of Present illness Narrative* Cayla Hernandez, WATCH BAND ASSEMBLER - 08/10/2020 7:00 AM EDT [facility] OUTPATIENT REH[facility]ILITATION DAILY TREATMENT NOTE [...] OTHER Notes visit 3: 7:10-7:40 Therapeutic Exercise (44195) Parameters ER doorway stretch 3x20" Intervention cane assisted ER in scaption and abd 10x10" Parameters rows/ext GTT 2x10 Intervention prone rows, ext and horz abd 2# x10 each Parameters side lying ER 2# x10 Intervention serratus punches 2# x10 Parameters finger/wrist flex and ext stretches 3x20" Intervention resisted pronation/supination 2# dumbbell x10 Parameters resisted ulnar/radial deviation and wrist flexion GTT x10 Intervention biceps curls GTT x10 Manual Therapy (69442) Intervention radial head mobs x5 mins Parameters humeroradial traction in 70 deg. flexion and in 20 deg. flexion 3x20" PT Treatment Times Therex Total Time 30 [...] pain control Cayla Hernandez PTA STATE LICENSE, [id number] documented in this [id number] History of Past illness Narrative* Problem Noted Date Resolved Date Pain in right shoulder 06/10/2015 9 Overview: Been having it for the past 3 months. When she lifts her shoulder above 90 is starts to hurt her. She is active in the gym. At least 3 days a week does the elliptical or treadmill, citizen of [place]. Did not lift anything and not injury. But is not very sure about the that. Last Assessment & Plan: Been having it for the past 3 months. When she lifts her shoulder above 90 is starts to hurt her. She is active in the gym. At least 3 days a week does the elliptical or treadmill, citizen of [place] etc. Did not lift anything and not injury. But is not very sure about the that. documented as of this encounter (statuses as of 04/18/2022) [facility] of Past illness Narrative* Problem Noted Date Resolved Date Pain in right shoulder 06/10/2015 9 Overview: Been having it for the past 3 months. When she lifts her shoulder above 90 is starts to hurt her. She is active in the gym. At least 3 days a week does the elliptical or treadmill, citizen of [place]. Did not lift anything and not injury. But is not very sure about the that. Last Assessment & Plan: Been having it for the past 3 months. When she lifts her shoulder above 90 is starts to hurt her. She is active in the gym. At least 3 days a week does the elliptical or treadmill, citizen [place] etc. Did not lift anything and not injury. But is not very sure about the that. documented as of this encounter (statuses as of 04/27/2022) [facility] of Past illness Narrative* Problem Noted Date Resolved Date Pain in right shoulder 06/10/2015 9 Overview: Been having it for the past 3 months. When she lifts her shoulder above 90 is starts to hurt her. She is active in the gym. At least 3 days a week does the elliptical or treadmill, citizen [place] etc. Did not lift anything and not injury. But is not very sure about the that. Last Assessment & Plan: Been having it for the past 3 months. When she lifts her shoulder above 90 is starts to hurt her. She is active in the gym. At least 3 days a week does the elliptical or treadmill, citizen [place] etc. Did not lift anything and not injury. But is not very sure about the that. documented as of this encounter (statuses as of 05/03/2022) [facility] History of Past illness Narrative* Problem Noted Date Diagnosed Date Resolved Date Pain in right shoulder 06/10/201509/18 Overview: Been having it for the past 3 months. When she lifts her shoulder above 90 is starts to hurt her. She is active in the gym. At least 3 days a week does the elliptical or treadmill, citizen of [place] etc. Did not lift anything and not injury. But is not very sure about the that. Last Assessment & Plan: Been having it for the past 3 months. When she lifts her shoulder above 90 is starts to hurt her. She is active in the gym. At least 3 days a week does the elliptical or treadmill, citizen of [place] etc. Did not lift anything and not injury. But is not very sure about the that. documented as of this encounter (statuses as of 01/09/2023) [facility] Diagnosis Neoplasm of uncertain behavior [...] of genital [facility] Occupational [facility] to COVID-19 virus- Primary [facility] Diagnosis Onset Date Resolution Status Left knee pain acute Back pain acute Segmental and somatic dysfunction of lumbar region acute Segmental and somatic dysfunction of pelvic region acute Segmental and somatic dysfunction of thoracic region acute [facility] Work Phone: Evaluation note* Diagnosis Onset Date Resolution Status Back pain acute Segmental and somatic dysfunction of lumbar region acute Segmental and somatic dysfunction of pelvic region acute Segmental and somatic dysfunction of thoracic region acute Left knee pain acute Osteoarthritis of left knee noneactive Gastroenteritis acute Anxiety acute Preventative health care acu te [facility] Work Phone: Evaluation note* Diagnosis Onset Date Resolution Status Left knee pain acute Osteoarthritis of left knee noneactive Gastroenteritis acute Anxiety acute Preventative health care acu te Palpitations noneactive Left knee pain acute Osteoarthritis of left knee noneactive [facility] Work Phone: Evaluation note* Diagnosis Onset Date Resolution Status Gastroenteritis acute Anxiety acute Preventative health care acu te Palpitations noneactive Left knee pain acute Osteoarthritis of left knee noneactive [facility] Work Phone: Evaluation note* Diagnosis Vaginal discharge- Primary Leukorrhea, not specified as infective Vagina itching Pruritus of genital organs documented in this encounter [facility] note* Diagnosis Vulvovaginal itching- Primary Pruritus of genital organs [facility] Diagnosis Onset Date Resolution Status Obesity (BMI 30.0-34.9) acut e Anxiety chronic [facility] Work Phone: evaluation noteNo assessment information available [facility] Work Phone: evaluation note* Diagnosis Onset Date Resolution Status Left knee pain acute [facility] Work Phone: Evaluation note* Diagnosis Onset Date Resolution Status Left knee pain acute Accident in home acute Puncture wound of foot, left acute Former smoker chronic [facility] Work Phone: Evaluation note* Diagnosis Vaginal dryness- Primary Other specified symptom associated with female genital organs Low libido Decreased libido Malaise and fatigue Other malaise and fatigue documented in this encounter [facility] note* Diagnosis Vulvovaginal itching Pruritus of genital organs documented in this encounter [facility] note* Diagnosis Encounter for gynecological examination (general) (routine) without abnormal findings- Primary Stress incontinence Female stress incontinence Encounter for screening mammogram for breast cancer Heterogeneously dense tissue of both breasts on mammography History of obesity Personal history of other specified diseases documented in this encounter [facility] note* Diagnosis Osteoarthritis of left knee, unspecified [...] obesity in adulthood documented in this encounter [facility] note* Diagnosis Encounter for screening mammogram for malignant neoplasm of breast- Primary Other screening mammogram [facility] Diagnosis Encounter for screening mammogram for malignant neoplasm of breast Other screening mammogram [facility]* Diagnosis Osteoarthritis of left knee, unspecified osteoarthritis type- Primary Anxiety Anxiety state, unspecified Stress incontinence Female stress incontinence History of gestational diabetes Personal history of gestational diabetes Binge-eating disorder, in full remission, mild History of obesity Personal history of other specified diseases [facility]* Diagnosis Osteoarthritis of left knee, unspecified osteoarthritis type- Primary Anxiety Anxiety state, unspecified Stress incontinence Female stress incontinence History of gestational diabetes Personal history of gestational diabetes Binge-eating disorder, in full remission, mild History of obesity Personal history of other specified diseases [facility]* Diagnosis Vulvovaginal itching Pruritus of genital organs [facility] Diagnosis Osteoarthritis of left knee, unspecified osteoarthritis type- Primary Anxiety Anxiety state, unspecified Stress incontinence Female stress incontinence History of gestational diabetes Personal history of gestational diabetes Binge-eating disorder, in full remission, mild History of obesity Personal history of other specified diseases [facility]* Diagnosis Osteoarthritis of left knee, unspecified osteoarthritis type- Primary Anxiety Anxiety state, unspecified Stress incontinence Female stress incontinence History of gestational diabetes Personal history of gestational diabetes Binge-eating disorder, in full remission, mild History of obesity Personal history of other specified diseases [facility]* Diagnosis Osteoarthritis of left knee, unspecified osteoarthritis type- Primary Anxiety Anxiety state, unspecified History of gestational diabetes Personal history of gestational diabetes Binge-eating disorder, in full remission, mild Encounter for long-term (current) use of medications Encounter for long-term (current) use of other medications History of obesity Personal history of other specified diseases [facility] Diagnosis Encounter for screening mammogram for malignant neoplasm of breast- Primary Other screening mammogram documented in this encounter [facility] for referral (narrative)* Diagnostic Procedure Only [...] BREAST INC Robyn Snell APRN.CNP [address] [place] [address] [facility] [address] [place] [address] Referral ID Status Reason Start Date Expiration Date Visits Requested Visits Authorized [id number] Pending Review Auto-Generat ed Referral 11/23/2023 12/22/2024 1 1 [facility] for referral (narrative)* Diagnostic Procedure Only (Routine) - Authorized Specialty Diagnoses / Procedures Referred By Ja scott Referred To Contact [facility] Diagnoses Encounter for screening mammogram for malignant neoplasm of breast Procedures TAMIKO SCREENING W RJ SCREENING DIGITAL BREAST TOMOSYNTHESIS BI SCREENING MAMMOGRAPHY BI 2-VIEW BREAST INC Robyn Snell APRN.HEAD SHIPPER [address] [place] [address] [facility] [address] [place] [address] Referral ID Status Reason Start Date Expiration Date Visits Requested Visits Authorized [id number] Authorized Auto-Generat ed Referral 01/21/2024 02/19/2025 1 1 T [facility] for referral (narrative)No reason for referral information availableWBlanch[facility]: Reason for visit Narrative* Diagnostic Procedure Only (Routine) - Closed Specialty Diagnoses / Procedures Referred By Ja scott Referred To Contact [facility] Diagnoses Encounter for screening mammogram for malignant neoplasm of breast Procedures TAMIKO SCREENING W RJ SCREENING DIGITAL BREAST TOMOSYNTHESIS BI SCREENING MAMMOGRAPHY BI 2-VIEW BREAST INC Robyn Snell, REJI.HEAD SHIPPER [address] [place] [address] [facility] [address] [place] [address] Referral ID Status Reason Start Date Expiration Date V isits Requested Visits Authorized [id number] Closed Auto-Generate d Referral 01/21/2024 02/19/2025 1 1 [facility] Instructions * Patient Instructions - Cathy [...] you are older than 45 and are -[place] or have a father or brother who got prostatecancer when he was younger than 65. When should you call for help? Watch closely for changes in your health, and be sure to contact your doctor if you have any problems or symptoms that concern you. Where can you learn more? Log into your personal health record on [email or web address] and enter P072 in the "Education" box to learn more about "Well Visit, Ages 18 to 50: Care Instructions." Current as of: October 10, 2016 Content Version: 11.6 5566-7824 [employer]. Care instructions adapted under license by your healthcare professional. If you have questions about a medical condition or this instruction, always ask your healthcare professional. [employer] disclaims any warranty or liability for your [...] possible. Tdap is especially important for health customer care agent and anyone having close contact with a [...] in 5) Mild fever of at least 100.4°F (up to about 1 in 25 adolescents [...] or 1 in 12 adults) Fever over 102°F (about 1 in 100 adolescents or 1 [...] for Disease Control and Prevention (CDC): Call (7-461-GHJ-INFO) or Visit CDC's website at www.cdc.gov/vaccines Vaccine Information Statement (Interim) Tdap Vaccine (07/21/14) 42 U.S.C. 300aa-26 Department of Health and Human Services Centers for Disease Control and Prevention Many Vaccine Information Statements are available in [place] and other languages. See www.immunize.org/vis. Muchas hojas de informaci n sobre vacunas est n disponibles en espa ol y en otros idiomas. Visite www.immunize.org/vis. Care instructions adapted under license by your healthcare professional. If you have questions about a medical condition or this instruction, always ask your healthcare professional. [employer] disclaims any warranty or liability for your [...] Most normal results will be available through [employer] however if abnormal, you will be notified. [...] look into their status. Customer Service/Billing Questions: [phone] [employer] Assistance: [phone] or [phone] Financial Assistance: [phone] or [phone] Body Mass Index: Care Instructions Your Care [...] Log into your personal health record on [email or web address] and enter S176 in the "Education" box to learn more about "Body Mass Index: Care Instructions." Current as of: May 07, 2019 Content Version: 12.6 [employer]. Care instructions adapted under license by your healthcare professional. If you have questions about a medical condition or this instruction, always ask your healthcare professional. [employer] disclaims any warranty or liability for your [...] about seeing a registered dietitian or an loan documentation specialist. It can be a big challenge [...] healthy changes in your diet. ? An loan documentation specialist or personal driver can help you develop a safe and [...] Log into your personal health record on [email or web address] and enter U357 in the "Education" box to learn more about "Starting a Weight Loss Plan: Care Instructions." Current as of: May 07, 2019 Content Version: 12.6 [employer]. Care instructions adapted under license by your healthcare professional. If you have questions about a medical condition or this instruction, always ask your healthcare professional. [employer] disclaims any warranty or liability for your use of this information. documented in this encounter* Patient Instructions* Shahla Castañeda MD - 08/26/2020 9:15 AM EDT It was a pleasure to see you today. We have scheduled you for a right breast biopsy. I will call you with your biopsy result. At [facility], we believe in information transparency. If [...] FoundDocuments on File Type Date Recorded Patient Operating Room Rn Expl anation Advance Directives and Living Will Documents on File Type Date Recorded Patient Operating Room Rn Expl anation Advance Directives and Living Will Documents on File Type Date Recorded Patient Operating Room Rn Expl anation Advance Directives and Livin g Will 07/20/2020 12:15 PM Documents on File Type Date Recorded Patient Operating Room Rn Expl anation Advance Directives and Livin g Will 07/20/2020 12:15 PM Documents on File Type Date Recorded Patient Operating Room Rn Expl anation Advance Directives and Livin g Will 08/24/2020 11:24 AM Documents on File Type Date Recorded Patient Operating Room Rn Expl anation Advance Directives and Livin g Will 08/24/2020 11:24 AM Documents on File Type Date Recorded Patient Operating Room Rn Expl anation Advance Directives and Livin g Will 08/27/2020 11:24 AM Documents on File Type Date Recorded Patient Operating Room Rn Expl anation Advance Directives and Livin g Will 08/27/2020 11:24 AM Documents on File Type Date Recorded Patient Operating Room Rn Expl anation Advance Directives and Livin g Will 10/05/2020 11:24 AM Advance Directive Response Recorded Date/ Time Living Will No May 07 9:21am Power of Metal Model Builder No May 07, 2017 9:21am Advance Directive Response Recorded Date/ Time Living Will No February 11, 2022 3:19pm Power of Metal Model Builder No January 3:19pm Advance Directive Response Recorded Date/ Time Living Will No March 18 11:18am Power of Metal Model Builder No March 18, 2023 11:18am Advance Directive Response Recorded Date/ Time Living Will No March 21 10:03am Power of Metal Model Builder No March 21, 2023 10:03am Advance Directive Response Recorded Date/ Time Living Will No May 20 11:34am Do you have a Healthcare Power of Metal Model Builder? No May 20, 2024 11:34am Advance Directive Response Recorded Date/ Time Do you have a Healthcare Power of Metal Model Builder? 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 Chato Britton PT State License, [id number] documented in this encounter* Ana Maria Baker [...] 08/26/20 Patient Name: Do Olson MR #: [id number] : 1980 Physicians: Ana Maria Baker MD [...] baseline screening mammogram on 08/13/2020 at the [facility] which was given a BIRADS 0 for an asymmetry in the upper right breast, posterior depth. She underwent diagnostic bilateral mammogram and targeted right breast ultrasound on 08/19/2020 at [facility] radiology which was given a BIRADS III for her mammographic asymmetry which was located atthe 2 o'clock position. There was no ultrasound correlate identified. She underwent further evaluation with bilateral breast MRI at [place] 08/24/2020 which identified a 2 x 1.1 [...] personal history of cancer. 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 Shahla Castañeda MD Breast Surgical Oncology [facility] Office Office CC: Patient Care Team: Ana Maria Baker MD as PCP - General (Internal Medicine) Ana Maria Baker MD as PCP - [facility] Provider - [facility] documented in this encounter* Keily Ken RN [...] in good condition. Viktoriya Ken RN, BSN, [facility] Nurse Navigator [address] [facility], [address] [phone] [phone] documented in this encounter Reason for Referral Status Reason Specialty Diagnoses / Procedures Referred By Contact Referred To Contact Authorized Specialty Services Required/Patie nt's Best Interest Rehabilitation Diagnoses Lateral epicondylitis, unspecified laterality Ana Maria Baker MD [address] [place] [address], [place] [address] [facility] [address] [place] [address] Status Reason Specialty Diagnoses / Procedures Referred By Contact Referred To Contact Authorized Patient Preference Diagnoses Encounter for screening for malignant neoplasm of breast, unspecified screening modality Procedures Mammography Screening Bilateral Ana Maria Baker MD [address] [place] [address] [address] Phone: [phone] Status Reason Specialty Diagnoses / Procedures Referred By Contact Referred To Contact Authorized Radiology Diagnoses Follow-up examination of abnormal mammogram Procedures Mammography Diagnostic Bilateral Ana Maria Baker MD [address] [place] [address] Status Reason Specialty Diagnoses / Procedures Referred By Contact Referred To Contact Authorized Radiology Diagnoses Follow-up examination of abnormal mammogram Procedures MR Breast Right With Contrast Ana Maria Baker MD [address] [place] [address] Diagn[facility] [address] [facility] [place] [address] Status Reason Specialty Diagnoses / Procedures Referred By Contact Referred To Contact New Request Radiology Diagnoses Follow-up examination of abnormal mammogram Procedures MR Breast Bilateral With And Without Contrast Ana Maria Baker MD [address] [place] [address] Status Reason Specialty Diagnoses / Procedures Referred By Contact Referred To Contact Authorized Radiology Diagnoses Stress at home Procedures US Breast Biopsy Right Ana Maria Baker MD [address] [place] [address] Status Reason Specialty Diagnoses / Procedures Referred By Contact Referred To Contact Authorized Specialty Services Required/Patie nt's Best Interest Breast Surgery Diagnoses Follow-up examination of abnormal mammogram Ana Maria Baker MD [address] [place] [address] Shahla Castañeda MD [address] [place] [address] Status Reason Specialty Diagnoses / Procedures Referred By Contact Referred To Contact Closed Patient Preference Radiology Diagnoses Follow-up examination of abnormal mammogram Procedures MR Breast Bilateral With And Without Contrast Ana Maria Baker MD [address] [place] [address] Status Reason Specialty Diagnoses / Procedures Re ferred By Contact Referred To Contact New Request Radiology Diagnoses Mass of upper inner quadrant of right breast Procedures Mammography Stereotactic Breast Biopsy Right Shahla Castañeda MD [address] [place] [address] Status Reason Specialty Diagnoses / Procedures Referred By Contact Referred To Contact Pending Review Radiology Diagnoses Mass of upper inner quadrant of right breast Procedures US Breast Biopsy Right Shahla Castañeda MD [address] [place] [address] Status Reason Specialty Diagnoses / Procedures Referred By Contact Referred To Contact Pending Review Radiology Diagnoses Mass of upper inner quadrant of right breast Procedures US Breast Right Limited Shahla Castañeda MD [address] [place] [address] Status Reason Specialty Diagnoses / Procedures Re ferred By Contact Referred To Contact Canceled Radiology Diagnoses Mass of upper inner quadrant of right breast Procedures Mammography Stereotactic Breast Biopsy Right Shahla Castañeda MD [address] [place] [address] Status Reason Specialty Diagnoses / Procedures Referred By Contact Referred To Contact Closed Radiology Diagnoses Stress at home Procedures US Breast Biopsy Right Ana Maria Baker MD [address] [place] [address] Status Reason Specialty Diagnoses / Procedures Referred By Contact Referred To Contact Pending Review Radiology Diagnoses Stress at home Procedures Mammography Follow-up Post Clip Placement Ana Maria Baker MD [address] [place] [id number] Discharge Instructions * Instructions* Radha Nair, TECHNOLOGIST [...] Source Comments Assessment & Plan Note - [facility], [facility] - 01/11/2018 9:49 AM EDTAssessment & Plan Note - [facility], [facility] - 01/11/2018 9:48 AM EDT Miscellaneous Notes [...] section and content) DATE CREATED AUTHOR 06/30/2018 [facility] DATE CREATED AUTHOR AUTHOR'S ORGANIZ ATION 07/22/2020 [facility] DATE CREATED AUTHOR AUTHOR'S ORGANIZ ATION 08/22/2020 [facility] DATE CREATED AUTHOR AUTHOR'S ORGANIZ ATION 10/19/2020 [facility] DATE CREATED AUTHOR AUTHOR'S ORGANIZ ATION 12/09/2020 [facility] DATE CREATED AUTHOR AUTHOR'S ORGANIZ ATION 01/10/2021 [facility] DATE CREATED AUTHOR AUTHOR'S ORGANIZ ATION 02/23/2021 [facility] DATE CREATED AUTHOR AUTHOR'S ORGANIZ ATION 01/16/2025 [facility] DATE CREATED AUTHOR AUTHOR'S ORGANIZ ATION 03/13/2025 [facility] Reason for Visit (unrecogniz ed section and content) Reason Comments Pain L ELBOW Anxiety Weight Loss Reason Comments Physical Therapy Status Reason Specialty Diagnoses / Procedures Referred By Contact Referred To Contact Authorized Specialty Services Required/Rafaela ent's Best Interest Rehabilitation Diagnoses Lateral epicondylitis, unspecified laterality Ana Maria Baker MD [address] [place] [address] [address] Reason Onset Date Comments Medication Refill 07/22/2020 Status Reason Specialty Diagnoses / Procedures Referred By Contact Referred To Contact Closed Patient Preference Radiology Diagnoses Follow-up examination of abnormal mammogram Procedures MR Breast Bilateral With And Without Contrast Ana Maria Baker MD [address] [place] [address] Reason Comments Initial Visit (Intake) right breast mass CAT4 Status Reason Specialty Diagnoses / Procedures Referred By Contact Referred To Contact Closed Specialty Services Required/Patien t's Best Interest Breast Surgery Diagnoses Follow-up examination of abnormal mammogram Ana Maria Baker MD [facility] [place] [address] Shahla Castañeda MD [address] [facility] [address] [place] [address] Status Reason Specialty Diagnoses / Procedures Re ferred By Contact Referred To Contact Canceled Radiology Diagnoses Mass of upper inner quadrant of right breast Procedures Mammography Stereotactic Breast Biopsy Right Shahla Castañead MD [address] [facility] [address] [place] [address] Status Reason Specialty Diagnoses / Procedures Referred By Contact Referred To Contact Closed Radiology Diagnoses Stress at home Procedures US Breast Biopsy Right Ana Maria Baker MD [address] [place] [phone] Status Reason Specialty Diagnoses / Procedures Referred By Contact Referred To Contact Pending Review Radiology Diagnoses Mass of upper inner quadrant of right breast Procedures US Breast Right Limited Shahla Castañeda MD [address] [facility] [address] [place] [address] Status Reason Specialty Diagnoses / Procedures Referred By Contact Referred To Contact Pending Review Radiology Diagnoses Stress at home Procedures Mammography Follow-up Post Clip Placement Ana Maria Baker MD [address] [place] [address] Reason Comments Annual Exam Status Reason Specialty Diagnoses / Procedures Referred By Contact Referred To Contact Authorized Specialty Services Required/Rafaela ent's Best Interest Rehabilitation Diagnoses Lateral epicondylitis, unspecified laterality Ana Maria Baker MD [address] [place] [address] [facility] [address] [place], [place] [phone] Reason Comments Vaginal Problem Discharge Reason Comments Patient Question Reason Comments Vaginal Problem Reason Comments Well Woman Reason Onset Date Comments Weight Management 12/25/2023 Reason Comments Orders Reason Comments Weight Management Reason Comments Follow Up Weight Management Reason Onset Date Comments Refill Request 04/15/2024 Reason Comments Outside Labs Results Care Teams (unrecognized sec tion and content) 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 Start Date End Date Ana Maria Baker MD [address] [place] [address] PCP - General Internal Medicine 05/06/20 Ana Maria Baker MD [address] [place] [address] PCP - MARY KAY Attributed Provider - [facility] 06/27/20 Robyn Bergeron, RN Patient Navigator 08/27/20 Sherry Bagley PA-C [address] [facility] [address] [place] [address] Physician Slitter And Cutter Operator Physician Slitter And Cutter Operator 11/25/20 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 Specialty Start Date End Date Ana Maria Baker MD [address] [place] [id number] PCP - General Internal Medicine 05/06/20 Ana Maria Baker MD [address] [place] [id number] PCP - MARY KAY Attributed Provider - [facility] 06/27/20 Robyn Bergeron, RN Patient Navigator 08/27/20 Sherry Bagley PA-C [address] [address] Physician Slitter And Cutter Operator Physician Slitter And Cutter Operator 11/25/20 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 Specialty Start Date End Date Ana Maria Baker MD [address] [place] [id number] PCP - General Internal Medicine 05/06/20 Ana Maria Baker MD [facility] [place] [address] PCP - MARY KAY Attributed Provider - [facility] 06/27/20 Robyn Bergeron, RN Patient Navigator 08/27/20 Sherry Bagley PA-C [address] [address] Physician Slitter And Cutter Operator Physician Slitter And Cutter Operator 11/25/20 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 Specialty Start Date End Date Ana Maria Baker MD [address] [address] PCP - General Internal Medicine 05/06/20 Robyn Bergeron, RN Patient Navigator 08/27/20 Sherry Bagley PA-C [address] [address] Physician Slitter And Cutter Operator Physician Slitter And Cutter Operator 11/25/20 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 Specialty Start Date End Date Ana Maria Baker MD [address] [place] [address] Referring Internal Medicine 08/11/20 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 Specialty Start Date End Date Ana Maria Baker MD [address] [place] [address] Referring Internal Medicine 08/11/20 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 Specialty Start Date End Date Ana Maria Baker MD [address] [place] [address] Referring Internal Medicine 08/11/20 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 Specialty Start Date End Date Ana Maria Baker MD [address] [place] [address] [place] [address] Referring Internal Medicine 08/11/20 Team Status: Active Member Role Status Dates No Primary Care Physician Family Provider Active Daria GARRIDO MD Primary Care Provider Active Team Status: Inactive Member Role Status Dates Daria GARRIDO MD Primary Care Provider, Referr ing Provider Active Kartik Padgett NP, FARMHAND-C Attending Provider Active Team Status: Inactive Member Role Status Dates Daria GARRIDO MD Primary Care Provider Active Robyn Warner NP, FARMHAND-C Attending Provider Active Team Status: Active Member Role Status Dates No Primary Care Physician Family Provider Active Kartik RIDLEY, FARMHAND-C Primary Care Provider Active Team Status: Inactive Member Role Status Dates Lucero KAUFFMAN PA Attending Provider, Referring Provi wali Active Kartik Padgett VSAlex, FARMHAND-C Primary Care Provider Active Team Status: Inactive Member Role Status Dates Robyn Warner NP, FARMHAND-C Attending Provider Active Dr. Daria Martines MD Primary Care Provider Active Team Status: Inactive Member Role Status Dates Kartik RIDLEY, FARMHAND-C Primary Care Provider, Referring Provider Active Lucero KAUFFMAN PA Attending Provider Active Team Status: Inactive Member Role Status Dates Kartik Padgett VSC, FARMHAND-C Primary Care Provider Active Dr. Liliam Brian MD Emergency Provider Active Team Status: Active Member Role Status Dates No Primary Care Physician Family Provider Active Kartik Padgett FARMHAND, FARMHAND-C Primary Care Provider Active Team Status: Inactive Member Role Status Dates Kartik Padgett VSC, FARMHAND-C Primary Care Provider, Referring Provider Active Dr. Brenton Gifford MD Attending Provider Active Team Status: Inactive Member Role Status Dates Kartik Padgett VSC, FARMHAND-C Primary Care Provider Active Dr. Liliam Brian MD Attending Provider, Emergency Provider Active Team Status: Inactive Member Role Status Dates Dr. 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 Specialty Start Date End Date Kartik Padgett CNP [address] [place] [address] PCP - General Family Medicine 10/02/23 Ana Maria Baker MD [place] [id number] Referring Internal Medicine 08/11/20 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 Specialty Start Date End Date Kartik Padgett CNP [address] [place] [address] PCP - General Family Medicine 10/02/23 Ana Maria Baker MD [address] [place] [address] Referring Internal Medicine 08/11/20 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 Specialty Start Date End Date Kartik Padgett CNP [address] [place] [address] PCP - General Family Medicine 10/02/23 Ana [place] [address] Referring Internal Medicine 08/11/20 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 Specialty Start Date End Date Kartik Padgett CNP [address] [place] [address] PCP - General Family Medicine 10/02/23 Ana [place] [address] Referring Internal Medicine 08/11/20 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 Specialty Start Date End Date Kartik Padgett CNP [address] [place] [address] PCP - General Family Medicine 10/02/23 Ana [place] [address] Referring Internal Medicine 08/11/20 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 Specialty Start Date End Date Kartik Padgett CNP [address] [place] [address] PCP - General Family Medicine 10/02/23 Ana [place] [address] Referring Internal Medicine 08/11/20 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 Specialty Start Date End Date Kartik Padgett CNP [address] [place] [address] PCP - General Family Medicine 10/02/23 Ana Maria Baker MD [address] [place] [phone] Referring Internal Medicine 08/11/20 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 Specialty Start Date End Date Kartik Padgett CNP [address] [place] [address] PCP - General Family Medicine 10/02/23 Aan Maria Baker MD [address] [place] [id number] Referring Internal Medicine 08/11/20 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 Specialty Start Date End Date Kartik Padgett CNP [address] [place] [address] PCP - General Family Medicine 10/02/23 Ana [place] [address] Referring Internal Medicine 08/11/20 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 Specialty Start Date End Date Kartik Padgett CNP [address] [place] [address] PCP - General Family Medicine 10/02/23 Ana [place] [address] Referring Internal Medicine 08/11/20 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 Specialty Start Date End Date Kartik Padgett CNP [address] [place] [address] PCP - General Family Medicine 10/02/23 Ana Maria Baker MD [address] [place] [address] Referring Internal Medicine 08/11/20 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 Specialty Start Date End Date Kartik Padgett CNP [address] [place] [address] PCP - General Family Medicine 10/02/23 Ana Maria Baker MD [address] [place] [address] Referring Internal Medicine 08/11/20 Team Status: Active Member Role Status Dates Kartik RIDLEY, FARMHAND-C Primary Care Provider Active Team Status: Inactive Member Role Status Dates Kartik RIDLEY, FARMHAND-C Primary Care Provider Active Start: June 10, 2024 End: June 10, 2024 Dr. Eulogio Mello DO Attending Provider Active Start: June 10, 2024 End: June 10, 2024 Dr. Eulogio Mello DO Referring Provider Active Start: June 10, 2024 End: June 10, 2024 Team Status: Active Member Role Status Dates Kartik RIDLEY, FARMHAND-C Primary Care Provider Active Start: June 10, 2024 Dr. Eulogio Mello DO Attending Provider Active Start: June 10, 2024 Dr. Eulogio Mello DO Referring Provider Active Start: June 10, 2024 Dr. Eulogio Mello DO Other Provider Active St art: June 10, 2024 Team Status: Inactive Member Role Status Dates Kartik RIDLEY, FARMHAND-C Primary Care Provider Active Start: August 04, 2024 End: August 04, 2024 Kartik RIDLEY, FARMHAND-C Referring Provider Active S tart: August 04, 2024 End: August 04, 2024 Brooke Liu NP-C Attending Provider Active Start: August 04, 2024 End: August 04, 2024 Team Status: Inactive Member Role Status Dates Kartik RIDLEY, FARMHAND-C Primary Care Provider Active Start: August 04, 2024 End: August 04, 2024 Dr. Dg Flores MD Attending Provider Active S tart: August 04, 2024 End: August 04, 2024 Team Status: Inactive Member Role Status Dates Kartik RIDLEY, FARMHAND-C Primary Care Provider Active Start: August 07, 2024 End: August 07, 2024 Brooke Liu NP-C Attending Provider Active Start: August 07, 2024 End: August 07, 2024 Brooke Liu FARMHAND-Alex Referring Provider Active Start: August 07, 2024 End: August 07, 2024 Team Status: Inactive Member Role Status Dates Kartik RIDLEY, FARMHAND-C Primary Care Provider Active Start: August 07, 2024 End: August 07, 2024 Kartik RIDLEY, FARMHAND-C Referring Provider Active S tart: August 07, 2024 End: August 07, 2024 Brooke Liu NP-Alex Attending Provider Active Start: August 07, 2024 End: August 07, 2024 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 Specialty Start Date End Date Kartik Padgett CNP [address] [place] [address] PCP - General Family Medicine 10/02/23 Ana Maria Baker MD Referring Internal Medicine 08/11/20 Team Status: Active Member Role/Relationship Status Dates Kartik RIDLEY, FARMHAND-C Primary Care Provider Active Team Status: Inactive Member Role/Relationship Status Dates Kartik RIDLEY, FARMHAND-C Primary Care Provider Active Start: August 04, 2024 End: August 04, 2024 Kartik RIDLEY, FARMHAND-C Referring Provider Active S tart: August 04, 2024 End: August 04, 2024 Brooke Liu FARMHAND-C Attending Provider Active Start: August 04, 2024 End: August 04, 2024 Team Status: Inactive Member Role/Relationship Status Dates Kartik RIDLEY, FARMHAND-C Primary Care Provider Active Start: August 04, 2024 End: August 04, 2024 Dr. Dg Flores MD Attending Provider Active S tart: August 04, 2024 End: August 04, 2024 Team Status: Inactive Member Role/Relationship Status Dates Kartik RIDLEY, FARMHAND-C Primary Care Provider Active Start: August 07, 2024 End: August 07, 2024 Brooke Liu FARMHAND-C Attending Provider Active Start: August 07, 2024 End: August 07, 2024 Brooke Liu FARMHAND-C Referring Provider Active Start: August 07, 2024 End: August 07, 2024 Team Status: Inactive Member Role/Relationship Status Dates Kartik Leroy VSAlex, FARMHAND-C Primary Care Provider Active Start: August 07, 2024 End: August 07, 2024 Kartik RIDLEY, FARMHAND-C Referring Provider Active S tart: August 07, 2024 End: August 07, 2024 Brooke Liu FARMHAND-C Attending Provider Active Start: August 07, 2024 End: August 07, 2024 Team Status: Inactive Member Role/Relationship Status Dates Kartik RIDLEY, FARMHAND-C Primary Care Provider Active Start: September 26, 2024 End: September 26, 2024 Kartik RIDLEY, FARMHAND-C Referring Provider Active S tart: September 26, 2024 End: September 26, 2024 Dr. Eulogio Mello DO Attending Provider Active Start: September 26, 2024 End: September 26, 2024 Team Status: Inactive Member Role/Relationship Status Dates Kartik Leroy VSC, FARMHAND-C Primary Care Provider Active Start: October 17, 2024 End: October 17, 2024 Dr. Daryl Peralta MD Attending Provider Active Start: October 17, 2024 End: October 17, 2024 Dr. Daryl Peralta MD Referring Provider Active Start: October 17, 2024 End: October 17, 2024 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 Specialty Start Date End Date Kartik Padgett CNP [address] [place] [address] PCP - General Family Medicine 10/02/23 Ana Maria Baker MD Referring Internal Medicine 08/11/20 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 Specialty Start Date End Date Kartik Padgett CNP [address] [place] [address] PCP - General Family Medicine 10/02/23 Ana Maria Baker MD Referring Internal Medicine 08/11/20 Team Status: Inactive Member Role/Relationship Status Dates Kartik Padgett VSC, FARMHAND-C Primary Care Provider Active Start: September 26, 2024 End: September 26, 2024 Kartik HdezHunterC, FARMHAND-C Referring Provider Active S tart: September 26, 2024 End: September 26, 2024 Dr. Eulogio Mello DO Attending Provider Active Start: September 26, 2024 End: September 26, 2024 Team Status: Inactive Member Role/Relationship Status Dates Kartik Padgett VSC, FARMHAND-C Primary Care Provider Active Start: October 17, 2024 End: October 17, 2024 Dr. Daryl Peralta MD Attending Provider Active Start: October 17, 2024 End: October 17, 2024 Dr. Daryl Peralta MD Referring Provider Active Start: October 17, 2024 End: October 17, 2024 Team Status: Active Member Role/Relationship Status Dates Kartik Hdezder VSC, FARMHAND-C Primary Care Provider Active Start: December 30, 2024 Robyn Warner FARMHAND, [employer]-C Attending Provider Active S tart: December 30, 2024 Robyn Warner FARMHAND, [employer]-C Referring Provider Active S tart: December 30, 2024 Team Status: Active Member Role/Relationship Status Dates Kartik Padgett VSC, FARMHAND-C Primary Care Provider Active Start: December 30, 2024 Dr. Eulogio Mello DO Attending Provider Active Start: December 30, 2024 Dr. Eulogio Mello DO Referring Provider Active Start: December 30, 2024 Dr. Eulogio Mello DO Other Provider Active St art: December 30, 2024 Team Status: Inactive Member Role/Relationship Status Dates Kartik Hdezder VSC, F[employer]-C Primary Care Provider Active Start: December 30, 2024 End: December 30, 2024 Robyn Warner NP [employer]-C Attending Provider Active S tart: December 30, 2024 End: December 30, 2024 Robyn Warner NP, [employer]-C Referring Provider Active S tart: December 30, 2024 End: December 30, 2024 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 Specialty Start Date End Date Kartik Padgett CNP [address] [place] [address] PCP - General Family Medicine 10/02/23 Ana Maria Baker MD Referring Internal Medicine 08/11/20 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 Specialty Start Date End Date Kartik Padgett CNP [address] [facility] [place] [address] PCP - General Family Medicine 10/02/23 Ana Maria Baker MD Referring Internal Medicine 08/11/20 Team Status: Active Member Role/Relationship Status Dates Kartik RIDLEY, FARMHAND-C Primary care physician Active Team Status: Inactive Member Role/Relationship Status Dates Kartik RIDLEY, F[employer]HAND-C Primary care physician Active Start: December 30, 2024 End: December 30, 2024 Robyn Warner NP [employer]-C Attending physician Active Start: December 30, 2024 End: December 30, 2024 Robyn Warner NP [employer]-C Referring Provider Active S tart: December 30, 2024 End: December 30, 2024 Team Status: Active Member Role/Relationship Status Dates Kartik RIDLEY, FARMHAND-C Primary care physician Active Start: December 30, 2024 Dr. Eulogio Mello DO Attending physician Active Start: December 30, 2024 Dr. Eulogio Mello DO Referring Provider Active Start: December 30, 2024 Dr. Eulogio Mello DO Nurse Practitioner Active Start: December 30, 2024 Team Status: Inactive Member Role/Relationship Status Dates Kartik RIDLEY, F[employer]-C Primary care physician Active Start: February 24, 2025 End: February 24, 2025 KYRA Francisco NP Attending physician Active Start: February 24, 2025 End: February 24, 2025 KYRA Francisco NP Referring Provider Active S tart: February 24, 2025 End: February 24, 2025 Source Comments (unrecognize d section and content) In the event this informatio n is protected by the Federal Confidentiality of Alcohol and Drug Abuse Patient Records regulations: The Federal rules restrict any use of the information to criminally investigate or prosecute any alcohol or drug abuse patient.[facility] the event this information is protected by the Federal Confidentiality of Alcohol and Drug Abuse Patient Records regulations: The Federal rules restrict any use of the information to criminally investigate or prosecute any alcohol or drug abuse patient.[facility] the event this information is protected by the Federal Confidentiality of Alcohol and Drug Abuse Patient Records regulations: The Federal rules restrict any use of the information to criminally investigate or prosecute any alcohol or drug abuse patient.[facility] the event this information is protected by the Federal Confidentiality of Alcohol and Drug Abuse Patient Records regulations: The Federal rules restrict any use of the information to criminally investigate or prosecute any alcohol or drug abuse patient.[facility] the event this information is protected by the Federal Confidentiality of Alcohol and Drug Abuse Patient Records regulations: The Federal rules restrict any use of the information to criminally investigate or prosecute any alcohol or drug abuse patient.[facility] the event this information is protected by the Federal Confidentiality of Alcohol and Drug Abuse Patient Records regulations: The Federal rules restrict any use of the information to criminally investigate or prosecute any alcohol or drug abuse patient.[facility] the event this information is protected by the Federal Confidentiality of Alcohol and Drug Abuse Patient Records regulations: The Federal rules restrict any use of the information to criminally investigate or prosecute any alcohol or drug abuse patient.[facility] the event this information is protected by the Federal Confidentiality of Alcohol and Drug Abuse Patient Records regulations: The Federal rules restrict any use of the information to criminally investigate or prosecute any alcohol or drug abuse patient.[facility] the event this information is protected by the Federal Confidentiality of Alcohol and Drug Abuse Patient Records regulations: The Federal rules restrict any use of the information to criminally investigate or prosecute any alcohol or drug abuse patient.[facility] the event this information is protected by the Federal Confidentiality of Alcohol and Drug Abuse Patient Records regulations: The Federal rules restrict any use of the information to criminally investigate or prosecute any alcohol or drug abuse patient.[facility] HospitalIn the event this information is protected by the Federal Confidentiality of Alcohol and Drug Abuse Patient Records regulations: The Federal rules restrict any use of the information to criminally investigate or prosecute any alcohol or drug abuse patient.[facility]In the event this information is protected by the Federal Confidentiality of Alcohol and Drug Abuse Patient Records regulations: The Federal rules restrict any use of the information to criminally investigate or prosecute any alcohol or drug abuse patient.[facility] HospitalIn the event this information is protected by the Federal Confidentiality of Alcohol and Drug Abuse Patient Records regulations: The Federal rules restrict any use of the information to criminally investigate or prosecute any alcohol or drug abuse patient.[facility]In the event this information is protected by the Federal Confidentiality of Alcohol and Drug Abuse Patient Records regulations: The Federal rules restrict any use of the information to criminally investigate or prosecute any alcohol or drug abuse patient.[facility] the event this information is protected by the Federal Confidentiality of Alcohol and Drug Abuse Patient Records regulations: The Federal rules restrict any use of the information to criminally investigate or prosecute any alcohol or drug abuse patient.[facility] HospitalIn the event this information is protected by the Federal Confidentiality of Alcohol and Drug Abuse Patient Records regulations: The Federal rules restrict any use of the information to criminally investigate or prosecute any alcohol or drug abuse patient.[facility] HospitalIn the event this information is protected by the Federal Confidentiality of Alcohol and Drug Abuse Patient Records regulations: The Federal rules restrict any use of the information to criminally investigate or prosecute any alcohol or drug abuse patient.[facility] HospitalIn the event this information is protected by the Federal Confidentiality of Alcohol and Drug Abuse Patient Records regulations: The Federal rules restrict any use of the information to criminally investigate or prosecute any alcohol or drug abuse patient.[facility] HospitalIn the event this information is protected by the Federal Confidentiality of Alcohol and Drug Abuse Patient Records regulations: The Federal rules restrict any use of the information to criminally investigate or prosecute any alcohol or drug abuse patient.[facility] HospitalIn the event this information is protected by the Federal Confidentiality of Alcohol and Drug Abuse Patient Records regulations: The Federal rules restrict any use of the information to criminally investigate or prosecute any alcohol or drug abuse patient.[facility] HospitalIn the event this information is protected by the Federal Confidentiality of Alcohol and Drug Abuse Patient Records regulations: The Federal rules restrict any use of the information to criminally investigate or prosecute any alcohol or drug abuse patient.[facility] HospitalIn the event this information is protected by the Federal Confidentiality of Alcohol and Drug Abuse Patient Records regulations: The Federal rules restrict any use of the information to criminally investigate or prosecute any alcohol or drug abuse patient.[facility] HospitalIn the event this information is protected by the Federal Confidentiality of Alcohol and Drug Abuse Patient Records regulations: The Federal rules restrict any use of the information to criminally investigate or prosecute any alcohol or drug abuse patient.[facility] FOR RECORDS PERTAINING TO PATIENTS WHO [...] BE BASED ON THE PRIMARY CLINICAL RECORDS. [employer] [facility]. provides no warranty or guarantee of the accuracy or completeness of information in this document.
--- NOTE | 2025-03-18 15:55 | RAD_ITS ---
PROCEDURE: L/S SPINE MIN 4 VIEWS 03/18/2025 REASON FOR EXAM: PAIN TECHNIQUE: Procedure Code: [id number] Modality: DX Procedure: L/S SPINE MIN 4 VIEWS COMPARISON: None FINDINGS: There is anatomic alignment of the cervical spine. No demonstrated fracture or suspicious osseous lesion. No pars defect or spondylolisthesis Disc spaces well-preserved Prevertebral soft tissues are unremarkable RAD/L/S Spine Min 4 Views IMPRESSION: No acute abnormalities Reading Location: [id number]
== END | disposition home or self-care (01) ==
PROVIDERS: PCP Nurse Practitioner Family; Referring Provider Student in an Organized Health Care Education/Training Program; Visit Provider Student in an Organized Health Care Education/Training Program
DX: M54.16 Radiculopathy, lumbar region (principal); M54.50 Low back pain, unspecified
CPT/HCPCS: 72110; 72148

== ENCOUNTER → 2025-05-05 | Outpatient (CLI) | payer OTHER, SELFPAY ==
--- NOTE | 2025-05-05 10:19 | MRI_ITS ---
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 TECHNIQUE: Procedure Code: [id number] Modality: MR Procedure: BREAST BILATERAL W/O AND W CONTRAST: 13 mL of IV Clariscan COMPARISON: Mammogram 02/24/2025, 02/01/2024 FINDINGS: TISSUE DENSITY: The breasts are heterogeneously dense, which may obscure small masses. Background Parenchymal Enhancement: Mild There are bilateral retropectoral breast implants. RIGHT Breast: No suspicious mass or non-mass enhancement. LEFT Breast: No suspicious mass or non-mass enhancement. Other Findings: No suspicious axillary or internal mammary lymph nodes. Visualized portions of the thoracic and abdominal viscera are unremarkable. MRI/Breast Bilateral W/O and W IMPRESSION: There is no MR evidence of malignancy in either breast. OVERALL FINAL ASSESSMENT BI-RADS 1: NEGATIVE RECOMMENDATION: Routine annual follow-up in 1 Year Reading Location: [id number]
== END | disposition home or self-care (01) ==
LOC: OPMRI 10:17
PROVIDERS: PCP Nurse Practitioner Family; Referring Provider Nurse Practitioner Family; Visit Provider Nurse Practitioner Family
DX: Z12.31 Encounter for screening mammogram for malignant neoplasm of breast (principal); Z98.82 Breast implant status
CPT/HCPCS: 77049; A9575; A4216; C8908